=== PATIENT | female | born 1950 | race Caucasian/White ===

== ENCOUNTER 2016-12-03 11:24 | Emergency (ER) | payer OTHER, MEDICARE ==
[~2016-12-03] VITALS: Ht 157.5 cm; Wt 49.9 kg
[~2016-12-03 11:24] MED LIST: ADVAIR 250-501 EACH INH; ALBUTEROL2.5 MG/3 M INH/SOL; ALPRAZOLAM0.5 M4 PO; AMOX-CLAV 875-1 EACH PO; ASPIRIN CHILDRE81 MG PO; AUGMENTIN 500-1 EACH PO; AUGMENTIN 875-1 EACH PO; AZITHROMYCIN250 M1 PO; AZITHROMYCIN250 MG PO; BENTYL 10 MG CA10 MG PO; BIOTIN5 M2 PO; BROVANA15 MCG/21 INH; BUPROPION HCL150 M4 PO; CALMOSEPTINE OI71 GM PO; CALTRATE 600 +1 EACH PO; CEFTIN500 MG PO; CIPRO 500MG TA500 MG PO; CIPRO250 M1 PO; CIPROFLOXACIN500 MG PO; CLOPIDOGREL75 MG PO; COLACE100 M1 PO; DALIRESP500 MC1 PO; DICYCLOMINE HCL10 M1 PO; DIGOXIN250 MCG PO; DILAUDID2 M1 PO; DILAUDID4 M1 PO; DILTIAZEM 12HR120 MG PO; DILTIAZEM 24HR180 MG PO; ECOTRIN81 MG PO; ELIQUIS5 M1 PO; FERROUS SULFAT325 M3 PO; FISH OIL 1,0001 EACH PO; FOLIC ACID1 M1 PO; FUROSEMIDE40 MG PO; GUAIFENESI100 MG/5 M PO; LASIX40 M1 PO; LASIX40 MG PO; LEVOTHYROXINE100 MC1 PO; LISINOPRIL20 MG PO; LOSARTAN POTASS25 M1 PO; MEDROL DOSEPAK1 PAC PO; MIRALAX17 G1 PO; MONTELUKAST SOD10 M1 PO; MUCINEX600 M1 PO; Mucinex PO; Mycostatin Susp PO; NIACIN 500 MG PO; NIASPAN500 M1 PO; NICOTINE T7 MG/24 HR TD; NITRO-DUR1 EAC3 TOP; NITROGLYCER0.6 MG/H1 TOP; NITROGLYCERIN1 EAC2 TOP; NITROSTAT0.4 MG SL; NORVASC 10MG10 MG PO; NORVASC5 M1 PO; NYSTATIN100000 UNI PO; OMEPRAZOLE20 M2 PO; PANTOPRAZOLE SO40 M1 PO; PERCOCET 325 MG1 TA2 PO; PERCOCET 5-3251 EACH PO; PLAVIX 75MG TAB75 MG PO; POTASSIUM CHLO20 ME2 PO; POTASSIUM CHLO20 ME3 PO; PRAVACHOL40 M1 PO; PRAVASTATIN40 MG PO; PREDNISONE 10MG10 M1 PO; PREDNISONE 10MG10 MG PO; PREDNISONE 20MG20 MG PO; PREDNISONE10 M2 PO; PREDNISONE10 MG PO; PREDNISONE20 M1 PO; PREDNISONE5 M1 PO; PREDNISONE5 MG PO; PRILOSEC40 MG PO; PROAIR HFA0.09 MG/Ac INH; PULMICORT0.5 MG/21 INH/SOL; Q-TUSSIN100 MG/51 PO; Robitussin PO; SPIRIVA18 MCG INH; SUCRALFATE1 G1 PO; SYNTHROID100 MCG PO; TIKOSYN250 MCG PO; TUDORZA PR400 MCG/Ac INH; TUDORZA PRESS400 MCG INH; VICODIN 5-3001 EACH PO; VITAMIN C500 M7 PO; VITAMIN D3400 UNI1 PO; VITAMIN E400 UNI1 PO; WELLBUTRIN100 M1 PO; XANAX0.25 MG PO; XANAX0.5 MG PO; XOPENEX HFA15 GM INH; XOPENEX0.63 MG/1 INH/SOL; ZETIA10 M1 PO; ZITHROMAX Z-PA250 M1 PO; ZITHROMAX Z-PA250 MG PO; ZOLOFT100 M1 PO
[2016-12-03 12:04] LABS: ABSOLUTE BASOPHIL COUNT 0.1 /CUMM (0.0-0.2); ABSOLUTE EOSINOPHIL COUNT 0.2 /CUMM (0.0-0.7); ABSOLUTE GRANULOCYTE CT 7.9 /CUMM (1.4-6.5); BASOPHIL % 0.5 % (0.0-2.0); EOSINOPHIL % 1.6 % (0-5); GRANULOCYTE % 78.3 % (42.2-75.2); HEMATOCRIT 32.6 % (37-47); MEAN CORPUSCULAR HGB 29.6 PG (27.0-31.0); MEAN CORPUSCULAR HGB CONC 33.1 G/DL (33.0-37.0); MEAN CORPUSCULAR VOLUME 89.3 FL (81.0-99.0); MEAN PLATELET VOLUME 6.8 FL (7.4-10.4); PLATELET COUNT 519 /CUMM (130-400); RBC DISTRIBUTION WIDTH 16.2 % (11.5-14.5); RED BLOOD CELL CT 3.65 /CUMM (4.20-5.40); WHITE BLOOD CELL COUNT 10.1 /CUMM (4.8-10.8)
[2016-12-03] MEDS ORDERED: ADVAIR 250-501 EACH INH (12:18)
[2016-12-03] MEDS ORDERED: ALBUTEROL2.5 MG/3 M INH/SOL (12:19)
--- NOTE | 2016-12-03 12:20 | ED GENERAL ADULT ---
"History of Present Illness General Chief Complaint: Chest Pain Stated Complaint: CP X FEW DAYS Source: patient Exam Limitations: no limitations Vital Signs & Intake/Output Vital Signs & Intake/Output Vital Signs Date Time Temp Pulse Resp B/P Pulse O2 O2 Flow FiO2 Ox Delivery Rate 12/03 1729 98.1 74 18 140/66 98 Room Air 12/03 1637 98 Nasal 2.0L Cannula 12/03 1635 97.5 12/03 1547 97.5 79 20 120/62 98 Nasal 2.0L Cannula 12/03 1227 97 Nasal 2.0L Cannula 12/03 1139 98.0 87 18 145/77 98 Nasal 3.0L Cannula Allergies Coded Allergies: menotropins (HIVES FROM PERGONAL 11/15/15) Reconcile Medications Albuterol Sulfate 2.5 MG/3 ML (0.083 %) VIAL.NEB 1 Vial INH/DANIKA TID BREATHING PROBLEMS (Reported) Albuterol Sulfate 2.5 MG/3 ML VIAL.NEB 1 Vial INH/DANIKA Q4P PRN copd Reason to Stop at ADM: trc nebs Alprazolam 0.5 MG TABLET 1 TAB PO DAILY ANXIETY (Reported) Arformoterol Tartrate (Brovana) 15 MCG/2 ML VIAL.NEB 1 VIAL INH BID COPD Ascorbic Acid (Vitamin C) 500 MG CAPSULE.ER 1 CAP PO DAILY SUPPLEMENT ( Reported) Budesonide (Pulmicort) 0.5 MG/2 ML AMPUL.NEB 1 Vial INH/DANIKA BID COPD ( Reported) Bupropion HCl (Bupropion HCl Sr) 200 MG TABLET.ER 1 TAB PO QAM DEPRESSION ( Reported) Calcium Carbonate/Vitamin D3 (Caltrate 600 + D Tablet) 1 EACH TABLET 1 TAB PO DAILY SUPPLEMENT (Reported) Cholecalciferol (Vitamin D3) (Vitamin D3) 400 UNIT TABLET 1 TAB PO DAILY SUPPLEMENT (Reported) Dicyclomine HCl 10 MG CAPSULE 1 CAP PO 4 TIMES/DAY IBS (Reported) Diltiazem HCl (Diltiazem 24HR ER) 180 MG CAP.ER.24H 1 CAP PO DAILY HEART Docusate Sodium (Colace) 100 MG CAPSULE 2 CAP PO QPM STOOL SOFTENER (Reported ) Dofetilide (Tikosyn) 250 MCG CAPSULE 1 CAP PO BID ANTIARRHYTHMIC Ezetimibe (Zetia) 10 MG TABLET 1 TAB PO DAILY CHOLESTEROL (Reported) Ferrous Sulfate 325 MG (65 MG IRON) TABLET 1 TAB PO DAILY SUPPLEMENT ( Reported) Fluticasone/Salmeterol (Advair 250-50 Diskus) 250 MCG-50 MCG/DOSE BLST.W.DEV 1 PUF INH BID BREATHING PROBLEMS (Reported) Folic Acid 1 MG TABLET 1 TAB PO DAILY SUPPLEMENT (Reported) Furosemide (Lasix) 40 MG TABLET 1 TAB PO BID WATER PILL (Reported) Guaifenesin (Mucinex) 600 MG TAB.ER.12H 1 TAB PO DAILY EXPECTORANT (Reported) Levalbuterol HCl (Xopenex) 0.63 MG/3 ML VIAL.NEB 1 Vial INH/DANIKA Q8 COPD ( Reported) Levothyroxine Sodium 100 MCG TABLET 1 TAB PO DAILY AC THYROID (Reported) Losartan Potassium (Cozaar) 25 MG TABLET 1 TAB PO QPM HEART (Reported) Montelukast Sodium 10 MG TABLET 1 TAB PO DAILY COPD (Reported) Niacin (Niaspan) 500 MG TAB.ER.24H 1 TAB PO QPM SUPPLEMENT (Reported) Nitroglycerin (Nitro-Dur) 0.4 MG/HOUR PATCH.TD24 1 PAT TOP DAILY HEART ( Reported) [place]-3 Fatty Acids/Fish Oil (Fish Oil 1,000 MG Capsule) 340 MG-1,000 MG CAPSULE 2 CAP PO DAILY SUPPLEMENT (Reported) Pantoprazole Sodium 40 MG TABLET.DR 1 TAB PO DAILY GI (Reported) Potassium Chloride 20 MEQ TAB.ER.PRT 1 TAB PO DAILY SUPPLEMENT (Reported) Pravastatin Sodium (Pravachol) 40 MG TABLET 1 TAB PO QPM CHOLESTEROL ( Reported) Roflumilast (Daliresp) 500 MCG TABLET 1 TAB PO DAILY COPD (Reported) Sertraline HCl (Zoloft) 100 MG TABLET 2 TAB PO DAILY DEPRESSION (Reported) Sucralfate 1 GM TABLET 1 TAB PO 4 TIMES/DAY PUD (Reported) Tiotropium [place] (Spiriva) 18 MCG CAP.W.DEV 1 CAP INH DAILY copd Reason to Stop at ADM:[facility] NEBS ORDERS Vitamin E (Dl,Tocopheryl Acet) (Vitamin E) 400 UNIT CAPSULE 1 TAB PO DAILY SUPPLEMENT (Reported) Triage Note: 66 Y/O FEMALE C/O INTERMITTENT CHEST PAIN SINCE LAST WEEK; BECOMMING MORE CONSTANT AND MORE FREQUENT SINCE THIS WEEKEND. TOOK 2 TABS NITRO THIS MORNING WITH SIGNIFICANT IMPROVEMENT OF PAIN PER PT, NOW RATED 3/10. DENIES FEELING SOB THOUGH REPORTS INCREASE IN COUGH. BASELINE 2L 02, INCREASED TO 3L PER PT. EKG IN PROGRESS Triage Nurses Notes Reviewed? yes Onset: Abrupt Duration: day(s): Timing: recent history HPI: 12/03/16 3 pm 66-year-old female presents to the emergency department complaining of intermittent left sided chest wall pain. The patient has a history of COPD and also angina. She sees Dr. Naranjo who prescribed nitroglycerin. She's been intermittently getting left sided chest wall pain that is only occurring on the weekends. The last episode occurred on Saturday. But she's had intermittent chest pain throughout the weekend. Now the emergency department she has a minor pain to the left subcostal area. The onset of the symptoms were abrupt, the duration has been approximately last 2 weeks, the severity is significant as her symptoms required to come to the emergency department for care. She does admit to cough. No significant difficulty breathing. She has paroxysmal A. fib Past History Travel History Traveled to [place] past 21 day No Medical History Any Pertinent Medical History? 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 Other Medical Hx: Irritable bowel syndrome viral meningitis [id number] hypothyroidism right cataract extraction with IOL implant depression arthritis HTN (HYPERTENSION) (401.9 | I10) CAD s/p IA COPD tonsillectomy GERD discoid lupus Pneumonia miscarriage in 1990 appendectomy ulcerative colitis eczema surgical repair of hiatal hernia skin cancer Atrial Fibrillation History of MRSA: No History of VRE: No History of CDIFF: No Pneumonia Vaccine: 04/26/16 Influenza Vaccine: 06/10/16 Tetanus Vaccine: 02/07/16 Surgical History Surgical History: appendectomy, surgical repair of hiatal hernia tonsillectomy Psychosocial History Who do you live with Patient/Self Services at Home Oxygen What is your primary language Occitan Tobacco Use: Quit >30 days ago Family History Family History, If Any: MOTHER FH: COPD (chronic obstructive pulmonary disease) FH: heart disease FATHER Alzheimer's disease Hx Contributory? No Review of Systems Review of Systems Constitutional: Denies: fever. EENTM: Denies: visual changes. Respiratory: Reports: cough. Denies: short of breath. Cardiovascular: Reports: see HPI. GI: Denies: abdominal pain. Genitourinary: Reports: no symptoms. Musculoskeletal: Reports: no symptoms. Skin: Reports: no symptoms. Neurological/Psychological: Reports: no symptoms. Hematologic/Endocrine: Reports: no symptoms. Physical Exam Physical Exam General Appearance: alert, awake, anxious, mild distress Head: atraumatic, normal appearance Eyes: Bilateral: normal appearance, PERRL, EOMI. Ears, Nose, Throat: normal pharynx, normal ENT inspection Neck: normal inspection, supple, full range of motion Respiratory: no respiratory distress, left-sided chest wall tenderness Cardiovascular: regular rate/rhythm Peripheral Pulses: 4+ radial (R), 4+ radial (L) Gastrointestinal: soft, non-tender Back: normal range of motion Extremities: no edema Neurologic/Psych: no motor/sensory deficits, awake, alert, oriented x 3 Skin: intact, normal color, warm/dry Core Measures ACS in differential dx? No CVA/TIA Diagnosis: No Severe Sepsis Present: No Septic Shock Present: No Progress Differential Diagnoses I considered the following diagnoses in my evaluation of the patient: [Pneumonia , CHF, atelectasis, COPD, acute coronary syndrome, stable angina,] Plan of Care: Orders Procedure Date/time Status TROPONIN LEVEL 12/03 1524 Complete EKG 12/03 1524 Active TROPONIN LEVEL 12/03 1135 Complete MAGNESIUM 12/03 1135 Complete COMPREHENSIVE METABOLIC PANEL 12/03 1135 Complete CBC WITHOUT DIFFERENTIAL 12/03 1135 Complete EKG 12/03 1129 Active Laboratory Tests 12/03/16 1617: Troponin I 0.01 12/03/16 1230: Anion Gap 9, Estimated GFR > 60, BUN/Creatinine Ratio 23.3, Glucose 107 H, Calcium 10.4 H, Magnesium 1.6, Total Bilirubin 0.4, AST 82 H, ALT 83 H, Alkaline Phosphatase 93, Troponin I 0.01, Total Protein 6.4, Albumin 4.0, Globulin 2.4, Albumin/Globulin Ratio 1.7 12/03/16 1147: CBC w Diff NO MAN DIFF REQ, RBC 3.65 L, MCV 89.3, MCH 29.6, RDW 16.2 H, MPV 6.8 L, Gran % 78.3 H, Lymphocytes % 9.5 L, Monocytes % 10.1 H, Eosinophils % 1.6, Basophils % 0.5, Absolute Granulocytes 7.9 H, Absolute Lymphocytes 1.0 L, Absolute Monocytes 1.0 H, Absolute Eosinophils 0.2, Absolute Basophils 0.1, PUBS MCHC 33.1 Pre-Hospital EKG: NSR, nonspecific ST T wave chg Initial ED EKG: NSR, nonspecific ST T wave chg Prior EKG: unchanged Departure Departure Disposition: HOME OR SELF CARE Condition: Stable Clinical Impression Primary Impression: Chest pain Secondary Impressions: Atelectasis Referrals: DEDE MARION MD (PCP/Family) Departure Forms: Customer Survey General Discharge Information Comments Chest x-ray result reviewed below PATIENT: STEPH LEOS PRESENT AGE: 66 PATIENT ACCOUNT NO: [id number] : 50 LOCATION: [facility] ORDERING PHYSICIAN: MATTEO JONES DO SERVICE DATE: 12/03/16 EXAM TYPE: RAD - XRY-PORTABLE CHEST XRAY EXAMINATION: XR PORTABLE CHEST CLINICAL INFORMATION: Shortness of breath. Cough. COMPARISON: 08/11/2016 TECHNIQUE: AP portable upright view of the chest FINDINGS: Linear atelectasis is present the left lung base. Lungs are hyperexpanded, suggestive of COPD. No focal consolidation, pneumothorax, or pleural effusion. Cardiac and mediastinal contours are normal. Calcific atherosclerosis is present in the thoracic aorta. IMPRESSION: Mild left basilar atelectasis. No acute findings. DICTATED BY: YASMINE DOS SANTOS MD DATE/TIME DICTATED:12/03/161349 NEWS REEL CAMERAMAN:PAPO DATE/TIME TRANSCRIBED:12/03/161349 CONFIDENTIAL, DO NOT COPY WITHOUT APPROPRIATE AUTHORIZATION. <Electronically signed in Other Vendor System> SIGNED BY: YASMINE DOS SANTOS MD 12/03/16 1359 12/03/16 5:14 PM The patient has no active chest pain in the Emergency Department. Pain is worse when she leans forward. It is in the left subcostal area. Chest x-ray shows left sided atelectasis. EKG is unchanged 2. Troponin is less than 0.012. She will follow-up with Dr. Naranjo this week. Critical Care Note Critical Care Note Critical Care Time: non-applicable"
[2016-12-03] MEDS ORDERED: COZAAR25 M1 PO (12:28)
--- NOTE | 2016-12-03 13:59 | RADIOLOGY REPORT ---
EXAMINATION: XR PORTABLE CHEST CLINICAL INFORMATION: Shortness of breath. Cough. COMPARISON: 08/11/2016 TECHNIQUE: AP portable upright view of the chest FINDINGS: Linear atelectasis is present the left lung base. Lungs are hyperexpanded, suggestive of COPD. No focal consolidation, pneumothorax, or pleural effusion. Cardiac and mediastinal contours are normal. Calcific atherosclerosis is present in the thoracic aorta. IMPRESSION: Mild left basilar atelectasis. No acute findings.
[2016-12-03 17:29] VITALS: BP 140/66
== END 2016-12-03 17:30 ==
LOC: ERH 11:24
PROVIDERS: Emergency Medicine
DX: R07.9 Chest pain, unspecified (principal); J98.11 Atelectasis; Z87.891 Personal history of nicotine dependence
CPT/HCPCS: 1263; 93005; 93010

== ENCOUNTER 2017-01-25 17:21 | Inpatient (IN) | payer OTHER, MEDICARE ==
[~2017-01-25] VITALS: Ht 157.5 cm; Wt 60.5 kg
[~2017-01-25 17:21] MED LIST changes: +COZAAR25 M1 PO
--- NOTE | 2017-01-25 17:26 | NUR ---
PT TO ED C/O STIFF NECK X 4 DAYS. ALSO C/O HEADACHE, B/L ARM NUMBNESS AND B/L SHOULDER PAIN.
--- NOTE | 2017-01-25 17:54 | ED HEADACHE COMPLAINT ---
"History of Present Illness General Chief Complaint: General Adult Stated Complaint: SIB DR. TERRY FOR EVAL, STIFF NECK Source: patient Exam Limitations: no limitations Vital Signs & Intake/Output Vital Signs & Intake/Output Vital Signs Date Time Temp Pulse Resp B/P B/P Pulse O2 O2 Flow FiO2 Mean Ox Delivery Rate 01/25 2010 100.4 01/25 1941 100.4 95 18 123/57 97 Nasal 2.0L Cannula 01/25 1753 Room Air 01/25 1723 100.6 109 20 172/82 92 Nasal 1.0L Cannula ED Intake and Output 01/26 0000 01/25 1200 Intake Total 1360 Output Total Balance 1360 Intake, IV 1000 Intake, Oral 360 Patient 106 lb Weight Weight Reported by Patient Measurement Method Allergies Coded Allergies: menotropins (HIVES FROM PERGONAL 11/15/15) Triage Note: PT TO ED C/O STIFF NECK X 4 DAYS. ALSO C/O HEADACHE, B/L ARM NUMBNESS AND B/L SHOULDER PAIN. Triage Nurses Notes Reviewed? 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 Patient also states that yesterday she had a bowel prep for her colonoscopy performed today which he colonoscopy went well patient had no complications however during the ambulance ride home patient advised the construction producer to drop her off at [facility] for her complaints as stated above. Patient denies any chest pain arm pain jaw pain nausea vomiting leg swelling Patient does complain of a chronic cough and chronic shortness of breath with no new changes. Denies any dysuria hematuria back pain. Patient does complain of bilateral upper extremity paresthesia which has been present for some time. Denies any mechanism of injury. Denies any photophobia. Patient has not eaten or drank anything in the last 24 hours due to the bowel prep and colonoscopy. The colonoscopy was a scheduled procedure Patient was advised to present to emergency by Dr. Terry for concerns of a history of viral meningitis however patient states that symptoms present today are not similar to previous episode many years ago of viral meningitis when she was in [place]. (TIFFANIE EVERETT,JENNIFER) Reconcile Medications Acetaminophen (Arthritis Pain Reliever) 650 MG TABLET.ER 2 TAB PO PRN PAIN ( Reported) Albuterol Sulfate 2.5 MG/3 ML (0.083 %) VIAL.NEB 1 Vial INH/DANIKA 4XDAILY PRN RESPIRATORY (Reported) Alprazolam 0.5 MG TABLET 1 TAB PO DAILY ANXIETY (Reported) Arformoterol Tartrate (Brovana) 15 MCG/2 ML VIAL.NEB 1 VIAL INH DAILY RESPIRATORY (Reported) Ascorbic Acid (Vitamin C) 500 MG CAPSULE.ER 1 CAP PO DAILY SUPPLEMENT ( Reported) Budesonide (Pulmicort) 0.5 MG/2 ML AMPUL.NEB 1 Vial INH/DANIKA BID COPD ( Reported) Bupropion HCl (Bupropion HCl Sr) 200 MG TABLET.ER 1 TAB PO QAM DEPRESSION ( Reported) Calcium Carbonate/Vitamin D3 (Caltrate 600 + D Tablet) 1 EACH TABLET 1 TAB PO DAILY SUPPLEMENT (Reported) Cholecalciferol (Vitamin D3) (Vitamin D3) 400 UNIT TABLET 1 TAB PO DAILY SUPPLEMENT (Reported) Diltiazem HCl (Diltiazem ER) 180 MG CAPSULE.ER 1 TAB PO DAILY heart rate ( Reported) Docusate Sodium (Colace) 100 MG CAPSULE 2 CAP PO QPM STOOL SOFTENER (Reported ) Dofetilide (Tikosyn) 250 MCG CAPSULE 1 CAP PO BID ANTIARRHYTHMIC Ezetimibe (Zetia) 10 MG TABLET 1 TAB PO DAILY CHOLESTEROL (Reported) Ferrous Sulfate 325 MG (65 MG IRON) TABLET 1 TAB PO DAILY SUPPLEMENT ( Reported) Fluticasone/Salmeterol (Advair 250-50 Diskus) 250 MCG-50 MCG/DOSE BLST.W.DEV 1 PUF INH BID BREATHING PROBLEMS (Reported) Folic Acid 1 MG TABLET 1 TAB PO DAILY SUPPLEMENT (Reported) Furosemide (Lasix) 40 MG TABLET 1 TAB PO BID WATER PILL (Reported) Guaifenesin (Mucinex) 600 MG TAB.ER.12H 1 TAB PO DAILY EXPECTORANT (Reported) Levothyroxine Sodium 100 MCG TABLET 1 TAB PO DAILY AC THYROID (Reported) Losartan Potassium 50 MG TABLET 1 TAB PO DAILY BP (Reported) Montelukast Sodium 10 MG TABLET 1 TAB PO DAILY COPD (Reported) Nitroglycerin (Nitro-Dur) 0.6 MG/HOUR PATCH.TD24 1 PATCH TOP DAILY HEART ( Reported) [place]-3 Fatty Acids/Fish Oil (Fish Oil 1,000 MG Capsule) 340 MG-1,000 MG CAPSULE 2 CAP PO DAILY SUPPLEMENT (Reported) Omeprazole 40 MG CAPSULE.DR 1 CAP PO DAILY GI (Reported) Potassium Chloride 20 MEQ TAB.ER.PRT 1 TAB PO DAILY SUPPLEMENT (Reported) Pravastatin Sodium (Pravachol) 40 MG TABLET 1 TAB PO QPM CHOLESTEROL ( Reported) Roflumilast (Daliresp) 500 MCG TABLET 1 TAB PO DAILY COPD (Reported) Sertraline HCl (Zoloft) 100 MG TABLET 2 TAB PO DAILY DEPRESSION (Reported) Sucralfate 1 GM TABLET 1 TAB PO 4 TIMES/DAY PUD (Reported) Tiotropium [place] (Spiriva) 18 MCG CAP.W.DEV 1 CAP INH DAILY copd Reason to Stop at ADM:TRC NEBS ORDERS Vitamin E (Dl,Tocopheryl Acet) (Vitamin E) 400 UNIT CAPSULE 1 TAB PO DAILY SUPPLEMENT (Reported) (LUCAS ETIENNE,MIKE Brown) Past History Travel History Traveled to [place] past 21 day No Medical History Any Pertinent Medical History? 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 Other Medical Hx: Irritable bowel syndrome viral meningitis [id number] hypothyroidism right cataract extraction with IOL implant depression arthritis HTN (HYPERTENSION) (401.9 | I10) CAD s/p VA COPD tonsillectomy GERD discoid lupus Pneumonia miscarriage in 1990 appendectomy ulcerative colitis eczema surgical repair of hiatal hernia skin cancer Atrial Fibrillation History of MRSA: No History of VRE: No History of CDIFF: No Tetanus Vaccine: 02/07/16 Surgical History Surgical History: appendectomy, surgical repair of hiatal hernia tonsillectomy Psychosocial History Who do you live with Patient/Self Services at Home Oxygen What is your primary language Bolivian Tobacco Use: Quit >30 days ago ETOH Use: denies use Illicit Drug Use: denies illicit drug use Family History Family History, If Any: MOTHER FH: COPD (chronic obstructive pulmonary disease) FH: heart disease FATHER Alzheimer's disease Hx Contributory? No (JENNIFER BORGES) Review of Systems Review of Systems Constitutional: Reports: see HPI, chills, fever. Eyes: Reports: no symptoms. Ears, Nose, Throat, Mouth: Reports: no symptoms. Respiratory: Reports: see HPI. Cardiovascular: Reports: see HPI. Denies: chest pain, edema. Gastrointestinal/Abdominal: Reports: no symptoms. Genitourinary: Reports: no symptoms. Musculoskeletal: Reports: see HPI, muscle pain, muscle stiffness, neck pain. Skin: Reports: no symptoms. Neurological/Psychological: Reports: see HPI, headache, numbness. Hematologic/Endocrine: Reports: no symptoms. Endocrine: Reports: no symptoms. Immunologic/Allergic: Reports: no symptoms. All Other Systems: Reviewed and Negative (JENNIFER BORGES) Physical Exam Physical Exam General Appearance: no apparent distress, alert, comfortable Cranial Nerves: normal hearing, normal speech, PERRL Comments: Well-developed well-nourished person in no acute distress HEENT: Normal EENT exam, extraocular motion intact, no nystagmus. Pupils equally round and reactive to light and accommodation. Nose is atraumatic. External auditory canal and Tympanic membranes clear. Pharynx normal. No swelling or edema. Neck: Supple, no lymphadenopathy, normal range of motion without pain or tenderness Full active range of motion noted with cervical spine movements, bilateral para cervical muscular tenderness and upper trapezius point tenderness Back: Nontender, no CVA tenderness Cardiovascular: Regular rate and rhythms no murmurs rubs or gallops, normal JVP Respiratory: Chest nontender. No respiratory distress. Mild posterior wheezing noted Abdomen: Soft, nontender nondistended, no appreciable organomegaly. Normal bowel sounds. No ascites Extremity: No edema, no calf tenderness to palpation, normal and equal pulses. Neuro: Alert oriented x3, motor sensory normal, cranial nerves II through XII grossly intact. Bilateral upper extremity myotomes and dermatomes intact Negative Brudzinski negative Kernig sign Skin: No appreciable rash on exposed skin, skin is warm and dry. Psych: Mood and affect is normal, memory and judgment is normal. Core Measures Severe Sepsis Present: No Septic Shock Present: No (TIFFANIE EVERETT,JENNIFER) Progress Differential Diagnosis: carotid dissection, cav sinus thromb, cluster RUSSO, encephalitis, IC mass/tumor, intracranial Hem., meningitis, migraine RUSSO, musculoskeletal pain, post LP headache, sinusitis, SSS thrombosis, subarach. Hem., tension RUSSO, temporal arteritis, TMJ syndrome, viral cephalgia, PNA, SEPSIS , COPD EXACERBATION Plan of Care: Orders Procedure Date/time Status Heart Healthy Diet 01/26 B Active TROPONIN LEVEL 01/26 600 Active CBC WITHOUT DIFFERENTIAL 01/26 600 Active BASIC ELECTROLYTES PLUS BUN&CR 01/26 600 Active EKG 01/26 600 Active TROPONIN LEVEL 01/26 0000 Active EKG 01/26 0000 Active Pathway - chart 01/25 2217 Active House Staff 01/25 2217 Active Code Status 01/25 2217 Active LOWER RESPIRATORY CULTURE 01/25 2137 Active TRC EVALUATION (GEN) 01/26 2116 Active STREP PNEUMO URINARY ANTIGEN 01/26 2116 Active LEGIONELLA URINARY ANTIGEN 01/26 2116 Active RAPID VIRAL INFLUENZA A 01/25 2114 Complete Saline Lock 01/25 2009 Active Misc Message 01/25 2009 Active ED Holding Orders 01/25 2009 Active Admit to inpatient 01/25 2009 Active Vital Signs 01/25 2009 Active Code Status 01/25 2009 Complete Patient Data 01/25 2003 Active Intake & Output 01/25 194 Active Add-on Test (ER Only) 01/25 193 Active EKG 01/25 193 Active LACTIC ACID 01/25 1842 Complete CULTURE,URINE 01/25 182 Active BLOOD CULTURE 01/25 1829 Active URINALYSIS 01/25 1829 Active TROPONIN LEVEL 01/25 1829 Complete COMPREHENSIVE METABOLIC PANEL 01/25 182 Complete CBC WITHOUT DIFFERENTIAL 01/25 182 Complete VTE Mechanical Prophylaxis 01/25 UNK Active Current Medications Sig/Lana Start time Last Medication Dose Stop Time Status Admin Ceftriaxone Sodium 1,000 MG 0 01/26 2200 AC (Rocephin) Doxycycline Hyclate 100 MG Q12 01/26 2200 AC (Vibramycin) Sodium Chloride 100 ML (Normal Saline 0.9%) Alprazolam 0.5 MG DAILY 01/26 1000 AC (Xanax) 02/02 0959 Ascorbic Acid 500 MG DAILY 01/26 1000 AC (Vitamin C) Budesonide/ 2 PUF BID 01/26 1000 AC Formoterol Fumarate (Symbicort) Bupropion HCl 200 MG DAILY 01/26 1000 AC (Wellbutrin SR) Diltiazem HCl 180 MG DAILY 01/26 1000 AC (Cardizem CD) Dofetilide 250 MCG BID 01/26 1000 AC (Tikosyn 125 MCG) Enoxaparin Sodium 40 MG DAILY 01/26 1000 AC (Lovenox) Ezetimibe 10 MG DAILY 01/26 1000 AC (Zetia) Ferrous Sulfate 325 MG DAILY 01/26 1000 AC (Feosol) Folic Acid 1 MG DAILY 01/26 1000 AC (Folic Acid) Guaifenesin 600 MG DAILY 01/26 1000 AC (Mucinex) Montelukast Sodium 10 MG DAILY 01/26 1000 AC (Singulair) Nitroglycerin 0.6 MG DAILY 01/26 1000 AC (Transderm Nitro 15MG (Nitro-Dur) 0.6MG/Hr) Potassium Chloride 20 MEQ DAILY 01/26 1000 AC (K-Dur) Pravastatin Sodium 40 MG DAILY 01/26 1000 AC (Pravachol) Roflumilast 500 MCG DAILY 01/26 1000 AC (DALIRESP) Sertraline HCl 200 MG DAILY 01/26 1000 AC (Zoloft) Tiotropium [place] 1 PUF DAILY 01/26 1000 AC (Spiriva) Levothyroxine Sodium 0.1 MG DAILY AC 01/26 0700 AC (Synthroid) Omeprazole 40 MG DAILY AC 01/26 0700 AC (Prilosec) Methylprednisolone 40 MG Q6 01/26 06 AC (Solumedrol) Tramadol HCl 50 MG Q8P PRN 01/25 2230 AC (Ultram) Acetaminophen 650 MG Q6P PRN 01/25 2215 AC (Tylenol) Budesonide/ 2 PUF BID 01/25 2200 CAN Formoterol Fumarate (Symbicort) Sucralfate 1,000 MG 4 TIMES/DAY 01/25 2200 AC (Carafate) Sodium Chloride 1,000 ML Q13H 01/25 2145 AC (Normal Saline 0.9%) 01/26 1044 Laboratory Tests 01/25/17 1842: Anion Gap 11, Estimated GFR > 60, BUN/Creatinine Ratio 15.7, Glucose 93, Lactic Acid 0.8, Calcium 9.1, Total Bilirubin 0.4, AST 29, ALT 46, Alkaline Phosphatase 74, Troponin I 0.05, Total Protein 6.0 L, Albumin 3.8, Globulin 2.2, Albumin/ Globulin Ratio 1.7, CBC w Diff MAN DIFF ORDERED, RBC 3.40 L, MCV 91.0, MCH 30.0 , RDW 14.7 H, MPV 6.7 L, Gran % 89.2 H, Lymphocytes % 2.2 L, Monocytes % 8.5 , Eosinophils % 0.1, Basophils % 0 L, Absolute Granulocytes 26.1 H, Segmented Neutrophils 79 H, Band Neutrophils 6 H, Absolute Lymphocytes 0.6 L, Lymphocytes 5 L, Monocytes 9, Absolute Monocytes 2.5 H, Absolute Eosinophils 0 , Basophils 1, Absolute Basophils 0, Platelet Estimate INCREASED, Polychromasia 1+, Hypochromic-Microcytic 2+, Anisocytosis 1+, Schistocytes 1+, PUBS MCHC 33.0 Microbiology 01/25 225 NASOPHARYN: Influenza Virus A & B Rapid Smear - COMP 01/25 2137 LOWER RESP: Respiratory Culture - ORD 01/25 2137 LOWER RESP: Gram Stain - ORD 01/26 2116 URINE ROUT: Legionella Antigen - ORD 01/26 2116 URINE ROUT: Streptococcus pneumoniae Antigen (M - ORD 01/25 184 BLOOD: Blood Culture - RECD 01/25 183 BLOOD: Blood Culture - RECD 01/25 182 URINE ROUT: Urine Culture - ORD Patient does note to have fever and which Tylenol and IV fluids were administered. Patient has minimal suspicion of meningitis which she has full active range of motion negative meningeal signs on exam patient is alert and oriented Patient however on chest x-ray and blood work does note to have concerns of pneumonia Patient was administered IV antibiotics and IV Solu-Medrol for comorbidities. Due to comorbidities and concerning significant pneumonia patient will be admitted Patient also will be admitted for new EKG findings FROM 2 MONTHS AGO. Discussed patient with Dr. Kuo was aware (JENNIFER BORGES) Diagnostic Imaging: Viewed by Me: Radiology Read. Radiology Impression: SEE COMMENTS Initial ED EKG: SINUS RHYTHM 82 BPM v3 t-WAVE INVERSIONS NOTED THAT ARE NEW Prior EKG: changed Comments: PATIENT: STEPH LEOS PRESENT AGE: 67 PATIENT ACCOUNT NO: [id number] : 50 LOCATION: [facility] ORDERING PHYSICIAN: JENNIFER EVERETT SERVICE DATE: 01/25/17 EXAM TYPE: RAD - XRY-CHEST XRAY, PA AND LATERAL EXAMINATION: XR CHEST CLINICAL INFORMATION: Fever, COPD. COMPARISON: Chest x-ray 12/03/2016. TECHNIQUE: 2 views of the chest were obtained. FINDINGS: The lungs are hyperinflated. In comparison to the prior examination, there has been interval development of patchy airspace opacities within the left lung apex. There is also a subtle opacity within the right upper lobe. No pleural effusions or pneumothoraces are identified. Cardiomediastinal contours are within normal limits. Soft tissues are unremarkable. No acute osseous abnormality is identified. IMPRESSION: Interval development of patchy airspace opacities within the left lung apex. A subtle opacity is also visualized within the right upper lobe. This could reflect infection. Recommend follow-up PA and lateral chest x-ray following treatment to ensure resolution and to exclude underlying malignancy given the patient's clinical risk factors. Radiographic findings suggestive of underlying COPD. 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 COKING:PAPO DATE/TIME TRANSCRIBED:01/25/171922 (JENNIFER BORGES) Departure Departure Disposition: STILL A PATIENT Condition: Stable Clinical Impression Primary Impression: Pneumonia Secondary Impressions: COPD (chronic obstructive pulmonary disease), EKG, abnormal Referrals: DEDE MARION MD (PCP/Family) Departure Forms: Customer Survey General Discharge Information Admission Note Spoke With: ROXANNE GARLAND MD Documentation of Exam: Documentation of any treatments & extenuating circumstances including Concerns Regarding Discharge (functional status, medication knowledge or non-compliance, living conditions, etc.) that warrant an admission rather than observation: [ Discussed patient with who agrees with ] telemetry admission for concerns of pneumonia COPD and new EKG T wave inversions noted on admission EKG. Patient requires telemetry monitoring, IV antibiotics, pulmonary consultation, repeat labs, repeat troponin, blood cultures pending. 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 I have also reviewed all the pertinent lab results and diagnostic results. I agree with the findings and the plan of care as documented in the PA's/ATMOSPHERIC DRIER TENDER's documentation. [x] I have reviewed the ED Record and agree with the PA's/ATMOSPHERIC DRIER TENDER's documentation. [] Additions or exceptions (if any) to the PAs/ATMOSPHERIC DRIER TENDER's note and plan are summarized below: [] (LUCAS ETIENNE,MIKE Brown)"
[2017-01-25] MEDS ORDERED: ALBUTEROL2.5 MG/3 M INH/SOL (18:08)
[2017-01-25] MEDS ORDERED: BROVANA15 MCG/21 INH (18:09)
[2017-01-25] MEDS ORDERED: LOSARTAN POTASS50 M1 PO (18:10)
[2017-01-25] MEDS ORDERED: NITRO-DUR1 EAC4 TOP (18:12)
[2017-01-25] MEDS ORDERED: OMEPRAZOLE40 M1 PO (18:19)
[2017-01-25] MEDS ORDERED: ARTHRITIS PAIN650 M4 PO (18:20)
--- NOTE | 2017-01-25 18:52 | NUR ---
LABS DRAWN AND SENT, TWO SETS OF BLOOD CULTURES DRAWN AND SENT.
[2017-01-25 19:08] LABS: ABSOLUTE BASOPHIL COUNT 0 /CUMM (0.0-0.2); ABSOLUTE EOSINOPHIL COUNT 0 /CUMM (0.0-0.7); ABSOLUTE GRANULOCYTE CT 26.1 /CUMM (1.4-6.5); ABSOLUTE LYMPH COUNT 0.6 /CUMM (1.2-3.4); ABSOLUTE MONOCYTE COUNT 2.5 /CUMM (0.10-0.60); BASOPHIL % 0 % (0.0-2.0); EOSINOPHIL % 0.1 % (0-5); GRANULOCYTE % 89.2 % (42.2-75.2); HEMATOCRIT 30.9 % (37-47); MEAN PLATELET VOLUME 6.7 FL (7.4-10.4); PLATELET COUNT 568 /CUMM (130-400); RBC DISTRIBUTION WIDTH 14.7 % (11.5-14.5); WHITE BLOOD CELL COUNT 29.2 /CUMM (4.8-10.8)
--- NOTE | 2017-01-25 19:28 | RADIOLOGY REPORT ---
EXAMINATION: XR CHEST CLINICAL INFORMATION: Fever, COPD. COMPARISON: Chest x-ray 12/03/2016. TECHNIQUE: 2 views of the chest were obtained. FINDINGS: The lungs are hyperinflated. In comparison to the prior examination, there has been interval development of patchy airspace opacities within the left lung apex. There is also a subtle opacity within the right upper lobe. No pleural effusions or pneumothoraces are identified. Cardiomediastinal contours are within normal limits. Soft tissues are unremarkable. No acute osseous abnormality is identified. IMPRESSION: Interval development of patchy airspace opacities within the left lung apex. A subtle opacity is also visualized within the right upper lobe. This could reflect infection. Recommend follow-up PA and lateral chest x-ray following treatment to ensure resolution and to exclude underlying malignancy given the patient's clinical risk factors. Radiographic findings suggestive of underlying COPD.
--- NOTE | 2017-01-25 20:11 | NUR ---
PT MEDICATED WITH IV SOLUMEDROL AND IV CEFTRIAXONE PER ORDERS KARLOS MORENO BOX LUNCH PROVIDED PER ORDERS KARLOS MORENO
--- NOTE | 2017-01-25 21:16 | History & Physical ---
IRINA ETIENNE,[facility] 01/25/172114: General Information and HPI MD Statement: I have seen and personally examined STEPH ESCOBAR and documented this H&P. The patient is a 67 year old F who presented with a patient stated chief complaint of [nausea, fever, chills for 1 day]. Source of Information: patient, old records Exam Limitations: no limitations History of Present Illness: Ms. Escobar is 67 year old female with past medical history significant for COPD on 2 L home oxygen, coronary artery disease, atrial fibrillation not on anticoagulation because of history of bleeding, viral meningitis, osteoarthritis who presented to ED with chief complaint of nausea, fever and chills for 1 day. Patient reported that she had a scheduled colonoscopy this morning at [facility] for double balloon colonoscopy as she has been suffering from chronic anemia looking for source of GI bleeding. On her way back to home patient was "feeling very sick", complaining of nausea, fever and chills and decided to come to [facility] for evaluation. Patient reported that for the couple last days (3 days), she has been suffering from headache bitemporal throbbing pain 5/10 constant not associated with visual changes or photophobia. Also she reported nasal congestion with discharge yellow mucus from the right nostril, sore throat, productive cough of yellow sputum, denied ear pain, fever or chills prior to today. She denied any sick contact, recent travels. Patient received the flu vaccine and pneumonia vaccine last fall. Patient has osteoarthritis bilateral knees severe on the right side, bilateral shoulders, fingers not following with project architect, complains of left side neck soreness that has been on going for the last couple of days. Patient denied weakness, dizziness, blurry vision. She reported numbness on bilateral shoulders especially by the end of the day. Patient lives with her daughters, independent in ADL and IADL, has home services. Patient is an ex-smoker quit 5 years ago after 45 years of smoking, for the last 20 years she has been smoking 10 cigarettes per day. No history of alcohol consumption or ilict drug. Patient is following with Dr. Naranjo, Doppler, stress neck and Dr. Woods for chronic anemia. Allergies/Medications Allergies: Coded Allergies: menotropins (HIVES FROM PERGONAL 11/15/15) Past History Travel History Traveled to [place] past 21 day No Medical History Neurological: meningitis (viral in 2008) EENT: cataracts (on right with IOL), hearing loss Cardiovascular: AFIB, CAD (s/p LA), hypertension, hyperlipidemia, LA BLOCKED ARTERY atrial fibrillation PHARMACEUTICAL CONVERSION WITH TIKOSYN Respiratory: COPD, pneumonia, 2L N/C O2 PRN Gastrointestinal: GERD, irritable bowel syndrome, ULCERATIVE COLITIS Hepatic: NONE Renal: NONE Musculoskeletal: fibromyalgia, osteoarthritis Psychiatric: anxiety, depression, PTSD fibromyalgia Endocrine: hypothyroidism Blood Disorders: anemia Cancer(s): SKIN CA (skin cancer) SEWER HAND/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: NONE Other Medical Hx: Irritable bowel syndrome viral meningitis [id number] hypothyroidism right cataract extraction with IOL implant depression arthritis HTN (HYPERTENSION) (401.9 | I10) CAD s/p LA COPD tonsillectomy GERD discoid lupus Pneumonia miscarriage in 1990 appendectomy ulcerative colitis eczema surgical repair of hiatal hernia skin cancer Atrial Fibrillation History of MRSA: No History of VRE: No History of CDIFF: No Tetanus Vaccine: 02/07/16 Surgical History Surgical History: appendectomy, surgical repair of hiatal hernia tonsillectomy Past Family/Social History Family History Relations & Conditions if any MOTHER FH: COPD (chronic obstructive pulmonary disease) FH: heart disease FATHER Alzheimer's disease Psychosocial History Who Do You Live With? child Services at Home: Oxygen Primary Language: Nepali ETOH Use: denies use Illicit Drug Use: denies illicit drug use Functional Ability ADLs Independent: dressing, eating, toileting, bathing. Ambulation: independent IADLs Independent: shopping, housework, finances, food prep, telephone, transportation , medication admin. Review of Systems Review of Systems Constitutional: Reports: see HPI. Cardiovascular: Denies: chest pain, orthopena, palpitations. Respiratory: Reports: cough, short of breath. GI: Reports: nausea. Denies: abdominal pain, diarrhea, vomiting. Genitourinary: Denies: dysuria, hematuria. Skin: Denies: change in skin color, change in hair/nails. Neurological/Psychological: Reports: headache, numbness. Denies: confusion, dementia, tremors. Exam & Diagnostic Data Last 24 Hrs of Vital Signs/I&O Vital Signs Date Time Temp Pulse Resp B/P B/P Pulse O2 O2 Flow FiO2 Mean Ox Delivery Rate 01/25 2010 100.4 01/25 1941 100.4 95 18 123/57 97 Nasal 2.0L Cannula 01/25 1753 Room Air 01/25 1723 100.6 109 20 172/82 92 Nasal 1.0L Cannula Physical Exam General Appearance Alert, Oriented X3, Cooperative, No Acute Distress Skin No Rashes, No Breakdown, No Significant Lesion Skin Temp/Moisture Exam: Warm/Dry HEENT Atraumatic, PERRLA, EOMI, Mucous Membr. moist/pink, bilateral fine nystagmus Neck Supple, No JVD Lymphatic no cervical lymphadenopathy Cardiovascular Regular Rate, Normal S1, Normal S2, No Murmurs Lungs bilateral decreased air entry, prolonged expiratory phase, rhonchi, fine wheeze Abdomen Normal Bowel Sounds, Soft, No Tenderness Neurological Normal Gait, Normal Speech, Strength at 5/5 X4 Ext, Normal Tone, Sensation Intact, Cranial Nerves 3-12 NL, Reflexes 2+ Extremities No Clubbing, No Cyanosis, No Edema, Normal Pulses Assessment/Plan Assessment: Ms. Escobar is 67 year old female with past medical history significant for COPD on 2 L home oxygen, coronary artery disease, atrial fibrillation not on anticoagulation because of history of bleeding, viral meningitis, osteoarthritis who presented to ED with chief complaint of nausea, fever and chills for 1 day. On admission Vital signs temperature 100.6, pulse 109, blood pressure 172/82, respiratory rate 20 with saturation 92% on 1 L labs WBC 29.2, H&H 10.2/30.9, platelet 568, sodium 134, potassium 3.2, chloride 96, bicarbonate 27, BUN/creatinine 11/0.7, glucose 93, AST within normal, drops 0.05, lactic acid 0.8 Chest x-ray Interval development of patchy airspace opacities within the left lung apex. A subtle opacity is also visualized within the right upper lobe. This could reflect infection. Recommend follow-up PA and lateral chest x-ray following treatment to ensure resolution and to exclude underlying malignancy given the patient's clinical risk factors. Radiographic findings suggestive of underlying COPD. Problem list #Community-acquired pneumonia with fever, leukocytosis #Possible flu #Tension headache with no alarming symptoms #COPD on home oxygen #Thrombocytosis #Chronic anemia #Atrial fibrillation not on anticoagulation #Osteoarthritis Plan -Admit to telemetry floor for close monitoring -Antibiotic ceftriaxone and doxycycline for prolonged QTc -We'll check flu rapid test -TRC, continue home nebs -Tigan for nausea -Acetaminophen for headache, consider CT head is not improving -Avoid NSAIDs given history of GI bleeding -We'll obtain pulmonary consultation IN A.M. -We'll continue home medication -DVT prophylaxis heparin subcutaneous -Diet heart healthy -Code full As Ranked By This Provider Problem List: 1. COPD 2. Pneumonia Core Measures/Miscellaneous Acute Coronary Syndrome ACS Diagnosis: No Cerebrovascular Accident CVA/TIA Diagnosis: No Congestive Heart Failure CHF Diagnosis: No Venous Thromboembolism VTE Risk Factors: Age > 40 [facility] prophylaxis d/t: No contraindications No VTE Pharm Prophylaxis d/t: No contraindications VTE Diagnosis: No VTE Type: NONE VTE Confirmed by (Test): NONE Severe Sepsis Severe Sepsis Present: No Septic Shock Septic Shock Present: No Miscellaneous Documentation Attending Case Discussed With: ROXANNE GARLAND MD Primary Care Physician: DEDE MARION MD Patient sees these Specialists Cardiology, hematology, GI, pulmonology Level of Patient Care: Telemetry ELIAHO CORDOBA 01/26/17 0209: General Information and HPI Allergies/Medications Home Med list Acetaminophen (Arthritis Pain Reliever) 650 MG TABLET.ER 2 TAB PO PRN PAIN ( Reported) Albuterol Sulfate 2.5 MG/3 ML (0.083 %) VIAL.NEB 1 Vial INH/DANIKA 4XDAILY PRN RESPIRATORY (Reported) Alprazolam 0.5 MG TABLET 1 TAB PO DAILY ANXIETY (Reported) Arformoterol Tartrate (Brovana) 15 MCG/2 ML VIAL.NEB 1 VIAL INH DAILY RESPIRATORY (Reported) Ascorbic Acid (Vitamin C) 500 MG CAPSULE.ER 1 CAP PO DAILY SUPPLEMENT ( Reported) Budesonide (Pulmicort) 0.5 MG/2 ML AMPUL.NEB 1 Vial INH/DANIKA BID COPD ( Reported) Bupropion HCl (Bupropion HCl Sr) 200 MG TABLET.ER 1 TAB PO QAM DEPRESSION ( Reported) Calcium Carbonate/Vitamin D3 (Caltrate 600 + D Tablet) 1 EACH TABLET 1 TAB PO DAILY SUPPLEMENT (Reported) Cholecalciferol (Vitamin D3) (Vitamin D3) 400 UNIT TABLET 1 TAB PO DAILY SUPPLEMENT (Reported) Diltiazem HCl (Diltiazem ER) 180 MG CAPSULE.ER 1 TAB PO DAILY heart rate ( Reported) Docusate Sodium (Colace) 100 MG CAPSULE 2 CAP PO QPM STOOL SOFTENER (Reported ) Dofetilide (Tikosyn) 250 MCG CAPSULE 1 CAP PO BID ANTIARRHYTHMIC Ezetimibe (Zetia) 10 MG TABLET 1 TAB PO DAILY CHOLESTEROL (Reported) Ferrous Sulfate 325 MG (65 MG IRON) TABLET 1 TAB PO DAILY SUPPLEMENT ( Reported) Fluticasone/Salmeterol (Advair 250-50 Diskus) 250 MCG-50 MCG/DOSE BLST.W.DEV 1 PUF INH BID BREATHING PROBLEMS (Reported) Folic Acid 1 MG TABLET 1 TAB PO DAILY SUPPLEMENT (Reported) Furosemide (Lasix) 40 MG TABLET 1 TAB PO BID WATER PILL (Reported) Guaifenesin (Mucinex) 600 MG TAB.ER.12H 1 TAB PO DAILY EXPECTORANT (Reported) Levothyroxine Sodium 100 MCG TABLET 1 TAB PO DAILY AC THYROID (Reported) Losartan Potassium 50 MG TABLET 1 TAB PO DAILY BP (Reported) Montelukast Sodium 10 MG TABLET 1 TAB PO DAILY COPD (Reported) Nitroglycerin (Nitro-Dur) 0.6 MG/HOUR PATCH.TD24 1 PATCH TOP DAILY HEART ( Reported) [place]-3 Fatty Acids/Fish Oil (Fish Oil 1,000 MG Capsule) 340 MG-1,000 MG CAPSULE 2 CAP PO DAILY SUPPLEMENT (Reported) Omeprazole 40 MG CAPSULE.DR 1 CAP PO DAILY GI (Reported) Potassium Chloride 20 MEQ TAB.ER.PRT 1 TAB PO DAILY SUPPLEMENT (Reported) Pravastatin Sodium (Pravachol) 40 MG TABLET 1 TAB PO QPM CHOLESTEROL ( Reported) Roflumilast (Daliresp) 500 MCG TABLET 1 TAB PO DAILY COPD (Reported) Sertraline HCl (Zoloft) 100 MG TABLET 2 TAB PO DAILY DEPRESSION (Reported) Sucralfate 1 GM TABLET 1 TAB PO 4 TIMES/DAY PUD (Reported) Tiotropium Harrison (Spiriva) 18 MCG CAP.W.DEV 1 CAP INH DAILY copd Reason to Stop at ADM:TRC NEBS ORDERS Vitamin E (Dl,Tocopheryl Acet) (Vitamin E) 400 UNIT CAPSULE 1 TAB PO DAILY SUPPLEMENT (Reported) Resident Review Statement Resident Statement: examined this patient, discussed with logistics intern, agreed with logistics intern, amended to note Other Findings: 67-year-old lady with past pedicles of COPD on 2 L oxygen, CAD, A. fib not on anticoagulation on Tikosyn, osteoarthritis, anemia, anxiety, Gisselle chief complaint of nausea, not feeling well," for one day and also bilateral shoulder pain and neck pain for couple of days. Patient had bone colonoscopy today-after that she was feeling very sick with nausea resulted coming to ED. Patient also has history of headaches and cough for couple of days reported of yellow mucus discharge and congestion. Patient was recently seen by Dr. Stubbs and she was on prednisone by Dr. Alberts which was finished 4 days ago. Vital signs on admission were stable with mild fever and nasal cannula 2 L ( detials above) Physical exam to document any symptoms of meningismus, decreased breath sounds bilaterally in the lungs with expiratory wheezing. (details are above) CXR: IMPRESSION: Interval development of patchy airspace opacities within the left lung apex. A subtle opacity is also visualized within the right upper lobe. This could reflect infection. Recommend follow-up PA and lateral chest x-ray following treatment to ensure resolution and to exclude underlying malignancy given the patient's clinical risk factors. Labs are notable for WBC around 30,000, hemoglobin 10, platelets more than 500, 000, potassium 3.2 EKG showed sinus arrhythmia with atypical P waves, T inversion in V3 and V4, 82, QTC 500 Assessment and plan #Multilobar pneumonia with COPD exacerbation -Patient patient on IV ceftriaxone and doxycycline due to prolonged QTC -Tylenol for pain and fever -Check rapid flu, blood culture, sputum culture -Urine legionella and strep antigen -TRC -IV Solu-Medrol 40 every 8 -Pulmonology consult in the morning -Mild IV hydration -Continue on Singulair and Daliresp #EKG changes/hx of afb/CAD/HTN/HLP/HYPOTHRYODISM -Admit to telemetry -Serial troponin and EKGs 3 -Check QTC in the morning and 8 beats more than 500 discussed with the cardiology attending for redosing of Tikosyn -Continue diltiazem, hold Cozaar and Lasix for now -Nitropatch in the morning -Continue statin -Continue levothyroxine Full code, DVT prophylaxis is mechanical and pharmacological, Vicodin for pain ROXANNE GARLAND 01/26/17 0525: Attending MD Review Statement Attending Statement Attending MD Statement: examined this patient, discuss w/resident/PA/C[employer]LL P[employer]ER [employer] IRON, agreed w/resident/PA/[employer], reviewed EMR data (avail), reviewed images, amended to note Attending Assessment/Plan: CC: Fever, chills, cough with yellow sputum production PMH: HTN, COPD on 2 L NC, CAD, A. fib not on anticoagulant, currently on dofetilide, NSR , hypothyroidism, osteoarthritis Patient underwent a scheduled colonoscopy today at [facility] for her evaluation of chronic anemia, she had EGD 2 weeks back and 5 polyps were removed , patient had been feeling sick since 3-4 days so while coming back, she asked EMS to take her to . Since last 3-4 days she had been feeling headache, neck stiffness, cough with yellow sputum production, nasal congestion and yellow discharge, fevers and chills. Patient complains of shoulder pain since last 2 weeks, associated with numbness in her hands when she sleeps, attributing to severe arthritis, currently denying such pain. Vitals: T max 100.6, HR 109, RR 20, blood pressure 172/82 at presentation saturating 92% on 2 L NC On exam: A O 3, cooperative, mild respiratory distress, neck supple, JVD normal , no lymphadenopathy, mucosa dry, no focal neurological deficit, no dependent edema, no obvious skin rashes or inflammation CVS: S1-S2, RRR. RS: Extensive wheezing bilaterally. Abdomen: Soft, NT, ND, bowel sounds present. Peripheral pulses perfusion normal. Labs: WBC 29.2, neutrophil 89%, bands 6, hemoglobin 10.2, platelet 568, sodium 134, potassium 3.2, chloride 96, bicarbonate 27, gap 11, creatinine 0.7, LFT unremarkable, lactate 0.8. UA unremarkable CXR: #1 Interval development of patchy airspace opacities within the left lung apex. A subtle opacity is also visualized within the right upper lobe. This could reflect infection. Recommend follow-up PA and lateral chest x-ray following treatment to ensure resolution and to exclude underlying malignancy given the patient's clinical risk factors. #2 Radiographic findings suggestive of underlying COPD. EKG: T-wave inversion lateral leads A and P Patient presents with worsening of shortness of breath, productive cough, fever, chills, myalgia, significant wheezing, leukocytosis, fever and chest x-ray showing pulmonary infiltrates. We'll admit for community-acquired pneumonia , less likely aspiration as symptoms started before colonoscopy and much after previous EGD . Overnight admission on telemetry for T-wave changes. + Community-acquired pneumonia + Lateral lead T-wave changes + COPD exacerbation + Chronic anemia under investigation + History of HTN, CAD, A. fib, currently on dofetilide, NSR , hypothyroidism, osteoarthritis - Admit to telemetry - Continue ceftriaxone and doxycycline - Continue gentle hydration as tolerated by blood pressure - Hold losartan and Lasix continue all her home medications - Serial troponins and EKG, informed cardiology if elevated troponin or any further EKG changes. - IV methylprednisolone 40 mg every 8 hours - Nebulizations with albuterol and ipratropium - Mucinex - Sputum culture, blood culture - Replace electrolytes - Adequate pain control, DVT prophylaxis with Alps and heparin. - Full code
[2017-01-25] MEDS ORDERED: DILTIAZEM ER180 M1 PO (21:21)
--- NOTE | 2017-01-25 22:09 | NUR ---
PT BED ASSIGNMENT 179-2
--- NOTE | 2017-01-25 22:56 | NUR ---
REPORT CALLED TO [facility] ON 1N. PT TO BE TRANSPORTED TO UNIT BY RN. FLU SWAB SEND PRIOR TO TRANSFER
[2017-01-26 00:19] VITALS: BP 130/60
--- NOTE | 2017-01-26 05:26 | Admission Certification ---
Admission Certification Certification Statement - As attending physician, I certify that at the time of - admission, based on clinical presentation, severity of - symptoms, need for further diagnostic testing and - therapeutic interventions, and risk of adverse outcomes - without in-hospital treatment, in my clinical assessment, - this patient requires an acute hospital stay for a minimum - of two nights or longer. I have also considered psychsocial - factors such as support system, advanced age, financial - issues, cognitive issues, and failed out-patient treatments, - past re-admission history, safety of patient, and lack of - compliance as applicable. Specific rationale supporting this admission is: Community-acquired pneumonia
[2017-01-26 07:56] VITALS: BP 122/60
--- NOTE | 2017-01-26 08:50 | PN- Housestaff ---
DERICK ETIENNE,[facility] [place] 0850: Subjective Follow-up For: Community acquired pneumonia T wave changes COPD exacerbation Tele-Events Since Last Visit: Normal sinus rhythm HR 68-99 PACs and PVCs Subjective: No acute events overnight. Patient seen and examined this morning. She feels that her shortness of breath is getting worse today. She reports that her sputum was huffman and bloody this morning. She denies chest pain, shortness of breath or palpitations. She endorses headache and neck pain radiating to her shoulders. She reports episodes of aspiration on thin liquids. She remains on 2 L NC. Review of Systems Constitutional: Reports: see HPI. Objective Last 24 Hrs of Vital Signs/I&O Vital Signs Date Time Temp Pulse Resp B/P B/P Pulse O2 O2 Flow FiO2 Mean Ox Delivery Rate 01/27 0050 98.6 72 20 110/60 98 Nasal 2.0L Cannula / 1918 82 130/60 05/ 1709 99 Nasal 2.0L Cannula / 1600 98 Nasal 2.0L Cannula / 1530 98.3 68 18 118/62 98 Nasal 2.0L Cannula /06 0942 Nasal 2.0L Cannula /06 0815 99 Nasal 2.0L Cannula / 0800 97 Nasal 2.0L Cannula /06 0756 98.3 70 16 122/60 97 Nasal 2.0L Cannula /06 0126 99 Nasal 2.0L Cannula Intake & Output 07 0800 05/07 0000 05/06 1600 Intake Total 440 1140 Output Total 1000 Balance 440 140 Intake, IV 300 Intake, Oral 440 840 Output, Urine 1000 Physical Exam General Appearance: Alert, Oriented X3, No Acute Distress HEENT: Atraumatic, Mucous Membr. moist/pink Neck: Supple Cardiovascular: Regular Rate, Normal S1, Normal S2, No Murmurs, Gallops, Rubs Lungs: Scattered Wheezes Throughout Bilateral Lung Encarnacion Abdomen: Soft, No Tenderness, Positive Bowel Sounds Extremities: No Clubbing, No Cyanosis, No Edema Current Medications: Current Medications Sig/Lana Start time Last Medication Dose Route Stop Time Status Admin Acetaminophen 650 MG Q6P PRN 01/25 2215 AC PO Acetaminophen/ 1 TAB Q8P PRN 01/26 0130 AC 05/06 Hydrocodone Bitart PO 2213 Albuterol Sulfate 3 ML EVERY 4 HRS/AWAKE 01/26 0815 AC 01/26 INH 2100 Alprazolam 0.5 MG DAILY 01/26 1000 AC 01/26 PO 02/02 0959 0908 Arformoterol Tartrate 15 MCG DAILY 01/26 1000 AC 01/26 INH 1138 Ascorbic Acid 500 MG DAILY 01/26 1000 AC 01/26 PO 0907 Budesonide 0.5 MG BID 01/26 1000 AC 01/26 INH 1709 Budesonide/ 2 PUF BID 01/26 1000 CAN Formoterol Fumarate INH Bupropion HCl 200 MG DAILY 01/26 1000 AC 01/26 PO 0908 Ceftriaxone Sodium 1,000 MG 2200 01/26 2200 AC 01/26 IV 2207 Diltiazem HCl 180 MG DAILY 01/26 1000 AC 01/26 PO 0905 Dofetilide 250 MCG BID 01/26 1000 DC PO Dofetilide 250 MCG BID 01/26 1000 DC PO Dofetilide 250 MCG BID 01/26 0015 AC 01/26 PO 2206 Doxycycline Hyclate 100 MG Q12 01/26 2200 AC 01/26 Sodium Chloride 100 ML IV 2209 Enoxaparin Sodium 40 MG DAILY 01/26 1000 AC 01/26 SC 0905 Ezetimibe 10 MG DAILY 01/26 1000 AC 01/26 PO 0908 Ferrous Sulfate 325 MG DAILY 01/26 1000 AC 01/26 PO 0905 Folic Acid 1 MG DAILY 01/26 1000 AC 01/26 PO 0905 Furosemide 40 MG BID 01/26 2200 AC PO Guaifenesin 600 MG DAILY 01/26 1000 AC 01/26 PO 0906 Levothyroxine Sodium 0.1 MG DAILY AC 01/26 0700 AC 01/26 PO 0515 Losartan Potassium 50 MG DAILY 01/26 1743 AC 05 PO 1918 Magnesium Oxide 400 MG ONE ONE 01/26 2045 DC 01/26 PO 01/26 2046 220 Melatonin 3 MG AT BEDTIME PRN 01/26 1945 AC 01/26 PO 221 Methylprednisolone 40 MG Q6 01/26 0600 DC IV Methylprednisolone 40 MG Q8 01/26 0600 AC 01/26 IV 220 Montelukast Sodium 10 MG AT BEDTIME 01/26 2200 AC 01/26 PO 2217 Montelukast Sodium 10 MG DAILY 01/26 1000 DC PO Nitroglycerin 0.6 MG DAILY 05/06 1000 AC 01/26 TOP 0907 Omeprazole 40 MG DAILY AC 01/26 0700 AC 01/26 PO 0515 Patient Medication 1 UNIT ONE NR 01/[address] Teaching ED 01/26 1830 Patient Medication 1 UNIT ONE NR 01/26 1815 [facility] 01/26 1830 Potassium Chloride 20 MEQ DAILY 01/26 1000 AC / PO 0905 Pravastatin Sodium 40 MG AT BEDTIME 01/26 2200 AC 01/26 PO 2207 Pravastatin Sodium 40 MG DAILY 01/[address] PO Roflumilast 500 MCG DAILY 01/26 1000 AC 01/26 PO 0918 Sertraline HCl 200 MG DAILY 01/26 1000 AC 01/26 PO 0908 Sodium Chloride 1,000 ML Q13H 01/[address] 01/26 IV 01/26 1044 0100 Sucralfate 1,000 MG 4 TIMES/DAY 01/25 2200 AC 01/26 PO 2206 Tiotropium [place] 1 PUF DAILY 01/26 1000 AC 01/26 INH 0947 Tramadol HCl 50 MG Q8P PRN 01/[address] PO Trimethobenzamide HCl 200 MG TIDPRN PRN 01/26 0230 AC IM Last 24 Hrs of Lab/Wan Results Last 24 Hrs of Labs/Mics: Laboratory Tests 01/26/17 0610: Anion Gap 11, Estimated GFR > 60, BUN/Creatinine Ratio 16.7, Magnesium 1.8, Troponin I 0.03, CBC w Diff MAN DIFF ORDERED, RBC 3.16 L, MCV 91.0, MCH 30.0, RDW 15.0 H, MPV 7.1 L, Gran % 97.1 H, Lymphocytes % 1.2 L, Monocytes % 1.7, Eosinophils % 0, Basophils % 0 L, Absolute Granulocytes 37.0 H, Absolute Lymphocytes 0.5 L, Absolute Monocytes 0.7 H, Absolute Eosinophils 0, Absolute Basophils 0, Poikilocytosis 1+, Anisocytosis 1+, PUBS MCHC 33.0 01/26/17 0300: Urine Color YEL, Urine Clarity CLEAR, Urine pH 6.0, Ur Specific [place] 1.015, Urine Protein TRACE H, Urine Ketones NEG, Urine Nitrite NEG, Urine Bilirubin NEG, Urine Urobilinogen 0.2, Ur Leukocyte Esterase NEG, Ur Microscopic SEDIMENT EXAMINED, Urine WBC RARE, Ur Epithelial Cells RARE, Urine Bacteria RARE H, Urine Hemoglobin NEG, Urine Glucose 100 H 01/26/17 0115: Troponin I 0.04 Strep pneumo and Legionella urinary antigen (01/26/17): Negative BCx (01/25/17): Negative Rapid flu (01/25/17): Negative Orders Radiology Findings: XR SOFT TISSUE NECK: 1. Airways unremarkable. 2. Soft tissue calcifications in the upper lateral neck, possibly calcified lymph nodes. Assessment/Plan Assessment: 67 y/o F with PMHx of COPD on 2 L NC, CAD and atrial fibrillation not on anticoagulation who is admitted for community acquired pneumonia. #Community acquired pneumonia: On day 2 of IV ceftriaxone and doxycycline, with temperatures remaining normal but with worsening leukocytosis, WBC 38.6 this morning, likely secondary to IV steroids. Strep pneumo and Legionella urinary antigens and rapid flu negative. * Continue ceftriaxone 1 g IV daily and doxycycline 100 mg IV Q12H (azithromycin is contraindicated as patient is on dofetilide). * Follow BCx and sputum Cx. #COPD exacerbation: Exam remarkable for wheezing. Currently on 2 L oxygen which is her baseline requirement. * Continue Solumedrol 40 mg IV Q8H. * Continue npdpe-jc-bgycoyqko roflumilast 500 mcg PO daily. * Continue rrjqj-xl-dhhzvowww Spiriva inhaler, Pulmbicort and Brovana nebuliizers. * TRC and nebs. * Provide supplemental oxygen as needed to keep SpO2 >92%. * Continue Mucinex. #Neck pain: Neck XR with moderate degenerative changes secondary to underlying osteoarthritis. * Vicodin PRN for pain. #EKG changes: EKG with T-wave changes in inferior leads that are persistent this morning. Mild troponin elevation to 0.05 which have downtrended. No chest pain. * Cardiology consulted. Appreciate their recs. #Dysphagia: Self-reported aspiration with thin liquids. * Formal swallow evaluation ordered. #HTN: * Resume ymose-mz-zbdrgcfum Lasix 40 mg PO BID and losartan 50 mg PO daily. #Atrial fibrillation: Remains in normal sinus rhythm. Not on any anticoagulation due to history of bleeding. * Continue Cardizem CD 120 mg PO daily and dofetilide 250 mcg PO BID. Diet: Heart healthy DVT PPx: Lovenox and ALPs CODE: FULL Problem List: 1. COPD exacerbation 2. CAP (community acquired pneumonia) 3. Abnormal EKG 4. Neck pain 5. Aspiration of liquid 6. Osteoarthritis 7. Atrial fibrillation 8. CAD (coronary artery disease) Pain Ratin Pain Location: Neck pain Pain Goal: Pain 4 or less Pain Plan: Tylenol 650 mg PO Q6H PRN for mild pain (scale 1-3) Vicodin 1 tab PO Q8H PRN for moderate pian (scale 4-6) Tomorrow's Labs & Rationales: CBC to monitor WBC count in the setting of marked leukocytosis BMP and Mg to monitor lytes in the setting of hypokalemia NARCISA TOMAS MD 01/26/17 1552: Attending MD Review Statement Attending Statement Attending MD Statement: examined this patient, discuss w/resident/PA/TECHNICAL SALES MANAGER, agreed w/resident/PA/TECHNICAL SALES MANAGER, reviewed EMR data (avail), discussed with nursing, discussed with case mgmt, amended to note Attending Assessment/Plan: Patient seen and examined. Lying comfortably in bed not in acute distress. Reports feeling slightly better today compared to presentation. Denies chest pain. Denies palpitations. Admits to dyspnea on exertion. Reports coughing yellow colored phlegm. On examination she has diffuse rhonchi bilaterally. Recommendations: -Continue bronchodilator therapy. Continue systemic steroid therapy. -Continue antibiotic therapy with IV ceftriaxone and doxycycline (azithromycin is contraindicated as patient is on Tikosyn) her leukocytosis is likely combination of her underlying infection and steroid therapy. We'll continue to monitor closely. -She gives report of aspiration with thin liquids on occasion. Recommend formal swallow evaluation. -Recommend x-ray of her neck for further evaluation of her neck pain radiating to shoulders. Pain is likely secondary to underlying osteoarthritis -Continue pain control with Vicodin. -EKG on presentation showed T-wave inversion in inferior leads. Persistent this morning. Recommend evaluation by the cardiology service. -Resume her losartan and lasix.
[2017-01-26 09:09] LABS: ABSOLUTE BASOPHIL COUNT 0 /CUMM (0.0-0.2); ABSOLUTE EOSINOPHIL COUNT 0 /CUMM (0.0-0.7); ABSOLUTE LYMPH COUNT 0.5 /CUMM (1.2-3.4); ABSOLUTE MONOCYTE COUNT 0.7 /CUMM (0.10-0.60); BASOPHIL % 0 % (0.0-2.0); EOSINOPHIL % 0 % (0-5); GRANULOCYTE % 97.1 % (42.2-75.2); HEMATOCRIT 28.8 % (37-47); MEAN PLATELET VOLUME 7.1 FL (7.4-10.4); PLATELET COUNT 507 /CUMM (130-400); RED BLOOD CELL CT 3.16 /CUMM (4.20-5.40)
[2017-01-26 10:56] LABS: WHITE BLOOD CELL COUNT 38.1 /CUMM (4.8-10.8)
[2017-01-26 15:30] VITALS: BP 118/62
--- NOTE | 2017-01-26 16:42 | RADIOLOGY REPORT ---
EXAMINATION: XR SOFT TISSUE NECK CLINICAL INDICATION: 67-year-old female patient with past medical history of COPD. Here with community-acquired pneumonia. Evaluate for abnormalities in the setting of dysphagia. COMPARISON: Chest x-ray dated 01/25/2017. CT scan of the chest dated 06/18/2014). TECHNIQUE: 2 views of the soft tissue neck were obtained. FINDINGS: The air-filled vallecula, piriform sinuses, oral and hypopharynx and upper trachea appear unremarkable. The glottis and aryepiglottic fold is normal. There is a conglomeration of coarse calcifications seen within the left upper neck extending over a 2.6 x 1.1 cm region. There may also be subtle calcifications in the right side of the upper neck. Findings may represent calcified lymph nodes. In reviewing a CT scan of the chest, which included the lower neck on 06/18/2014, no definite correlate is found. There is moderate degenerative disc disease at C5-C6 and to a lesser extent at C6-C7 with disc space narrowing and vertebral endplate sclerosis and spurring and cystic changes seen. Reversal of the normal cervical lordosis is seen, suggesting muscle spasm. IMPRESSION: 1. Airways unremarkable. 2. Soft tissue calcifications in the upper lateral neck, possibly calcified lymph nodes.
[2017-01-27 00:50] VITALS: BP 110/60
[2017-01-27 07:59] VITALS: BP 140/80
--- NOTE | 2017-01-27 08:42 | PN- Housestaff ---
ALTAF ETIENNE,MARY 01/27/17 0842: Subjective Follow-up For: Community acquired pneumonia T wave changes COPD exacerbation Tele-Events Since Last Visit: Normal sinus rhythm, heart rate ranging from 71-79, at 2 AM she had 16 beat run of V. tach. Subjective: Patient followed up and examined by me today. She is resting comfortably in her bed, with additional oxygen via nasal cannula, not in distress, does not offer any complaint, vital signs stable, telemetry event noted as above, no other issues. Review of Systems Constitutional: Reports: no symptoms. Objective Last 24 Hrs of Vital Signs/I&O Vital Signs Date Time Temp Pulse Resp B/P B/P Pulse O2 O2 Flow FiO2 Mean Ox Delivery Rate 01/27 1647 98 Nasal 2.0L Cannula 01/27 1646 98.6 74 16 138/60 97 Nasal 3.0L Cannula 01/27 1600 98 Nasal 2.0L Cannula 01/27 1001 101 140/80 01/27 0940 96 Nasal 2.0L Cannula 01/27 0800 97 Nasal 2.0L Cannula 01/27 0759 98.1 76 16 140/80 97 Nasal 2.0L Cannula 01/27 0505 Nasal 2.0L Cannula 01/27 0050 98.6 72 20 110/60 98 Nasal 2.0L Cannula 01/27 0000 Nasal 2.0L Cannula Intake & Output 01/27 1600 01/27 0800 05/ 0000 Intake Total 640 100 640 Output Total Balance 640 100 640 Intake, Oral 640 100 640 Patient 48.081 kg Weight Physical Exam General Appearance: Alert, Oriented X3, Cooperative, using additional oxygen via nasal cannula Other Physical Findings: HEENT: Atraumatic, Mucous Membr. moist/pink Neck: Supple Cardiovascular: Regular Rate, Normal S1, Normal S2, No Murmurs, Gallops, Rubs Lungs: Scattered Wheezes Throughout Bilateral Lung Encarnacion Abdomen: Soft, No Tenderness, Positive Bowel Sounds Extremities: No Clubbing, No Cyanosis, No Edema Current Medications: Current Medications Sig/Lana Start time Last Medication Dose Route Stop Time Status Admin Acetaminophen 650 MG Q6P PRN 01/25 2215 AC PO Acetaminophen/ 1 TAB Q8P PRN 01/26 0130 AC 01/27 Hydrocodone Bitart PO 0617 Albuterol Sulfate 3 ML EVERY 4 HRS/AWAKE 01/26 0815 AC 01/27 INH 2056 Alprazolam 0.5 MG DAILY 01/26 1000 AC 01/27 PO 02/02 0959 0911 Arformoterol Tartrate 15 MCG DAILY 01/26 1000 AC 01/27 INH 0930 Ascorbic Acid 500 MG DAILY 01/26 1000 AC 01/27 PO 1004 Budesonide 0.5 MG BID 01/26 1000 AC 01/27 INH 1644 Bupropion HCl 200 MG DAILY 01/26 1000 AC 01/27 PO 1004 Ceftriaxone Sodium 1,000 MG 2200 01/26 2200 AC 01/26 IV 2207 Diltiazem HCl 180 MG DAILY 01/26 1000 AC 01/27 PO 1001 Dofetilide 250 MCG BID 01/26 0015 AC 01/27 PO 1003 Doxycycline Hyclate 100 MG Q12 01/26 2200 AC 01/27 Sodium Chloride 100 ML IV 1059 Enoxaparin Sodium 40 MG DAILY 01/26 1000 AC 01/27 SC 1002 Ezetimibe 10 MG DAILY 01/26 1000 AC 01/27 PO 1004 Ferrous Sulfate 325 MG DAILY 01/26 1000 AC 01/27 PO 1002 Folic Acid 1 MG DAILY 01/26 1000 AC 01/27 PO 1002 Furosemide 40 MG BID 01/26 2200 AC 01/27 PO 1002 Guaifenesin 600 MG DAILY 01/26 1000 AC 01/27 PO 1003 Levothyroxine Sodium 0.1 MG DAILY AC 01/26 700 AC 01/27 PO 0615 Losartan Potassium 50 MG DAILY 01/26 1743 AC 01/27 PO 1001 Melatonin 3 MG AT BEDTIME PRN 01/26 1945 AC 01/26 PO 2217 Methylprednisolone 40 MG Q8 01/26 600 AC 01/27 IV 1448 Montelukast Sodium 10 MG AT BEDTIME 01/26 2200 AC 01/26 PO 2217 Nitroglycerin 0.6 MG DAILY 01/26 1000 AC 01/27 TOP 1003 Omeprazole 40 MG DAILY AC 01/26 0700 AC 01/27 PO 0615 Potassium Chloride 20 MEQ DAILY 01/26 1000 AC 01/27 PO 1002 Pravastatin Sodium 40 MG AT BEDTIME 01/26 2200 AC 01/26 PO 2207 Roflumilast 500 MCG DAILY 01/26 1000 AC 01/27 PO 1010 Sertraline HCl 200 MG DAILY 01/26 1000 AC 01/27 PO 1004 Sucralfate 1,000 MG 4 TIMES/DAY 01/25 2200 AC 01/27 PO 1827 Tiotropium [place] 1 PUF DAILY 01/26 1000 AC 01/27 INH 1003 Trimethobenzamide HCl 200 MG TIDPRN PRN 01/26 0230 AC IM Last 24 Hrs of Lab/Wan Results Last 24 Hrs of Labs/Mics: Laboratory Tests 01/27/17 0744: CBC w Diff NO MAN DIFF REQ, RBC 3.26 L, MCV 91.8, MCH 30.2, RDW 15.1 H, MPV 7.1 L, Gran % 96.4 H, Lymphocytes % 1.6 L, Monocytes % 2.0, Eosinophils % 0, Basophils % 0 L, Absolute Granulocytes 38.7 H, Absolute Lymphocytes 0.7 L, Absolute Monocytes 0.8 H, Absolute Eosinophils 0, Absolute Basophils 0, PUBS MCHC 32.9 L 01/27/17 0650: Anion Gap 9, Estimated GFR > 60, BUN/Creatinine Ratio 18.3, Magnesium 2.0 Microbiology 01/28 800 LOWER RESP: Respiratory Culture - RES 01/28 800 LOWER RESP: Gram Stain - RES Assessment/Plan Assessment: 67 y/o F with PMHx of COPD on 2 L NC, CAD and atrial fibrillation not on anticoagulation who is admitted for community acquired pneumonia. #Persistent leukocytosis Patient has persistent leukocytosis today at 40.1, with differentials being steroids, community acquired pneumonia, COPD exacerbation, or possible abdominal viscus perforation. CAT scan of the abdomen was ordered for pulmonary consultation which did not show any perforation or leaks. Patient's vitals have been stable otherwise, will continue to observe. #Community acquired pneumonia: On day 3 of IV ceftriaxone and doxycycline, with temperatures remaining normal but with worsening leukocytosis, WBC 40.1 this morning, likely secondary to IV steroids. Strep pneumo and Legionella urinary antigens and rapid flu negative. * Continue ceftriaxone 1 g IV daily and doxycycline 100 mg IV Q12H (azithromycin is contraindicated as patient is on dofetilide). * Follow BCx and sputum Cx. #COPD exacerbation: Exam remarkable for wheezing. Currently on 2 L oxygen which is her baseline requirement. * Continue Solumedrol 40 mg IV Q8H. * Continue bykwn-rn-pmrirvoda roflumilast 500 mcg PO daily. * Continue ncsog-nd-bggbogdta Spiriva inhaler, Pulmbicort and Brovana nebuliizers. * TRC and nebs. * Provide supplemental oxygen as needed to keep SpO2 >92%. * Continue Mucinex. #Neck pain: Neck XR with moderate degenerative changes secondary to underlying osteoarthritis. * Vicodin PRN for pain. #EKG changes: EKG with T-wave changes in inferior leads that are persistent this morning. Mild troponin elevation to 0.05 which have downtrended. No chest pain. * Cardiology consulted. Appreciate their recs. #Dysphagia: Self-reported aspiration with thin liquids. * Formal swallow evaluation ordered. #HTN: * Resume bfyil-hq-ldwqtvflr Lasix 40 mg PO BID and losartan 50 mg PO daily. #Atrial fibrillation: Remains in normal sinus rhythm. Not on any anticoagulation due to history of bleeding. * Continue Cardizem CD 120 mg PO daily and dofetilide 250 mcg PO BID. Diet: Heart healthy DVT PPx: Lovenox and ALPs CODE: FULL Problem List: 1. CAP (community acquired pneumonia) 2. COPD (chronic obstructive pulmonary disease) 3. Leukocytosis Pain Ratin Pain Location: - Pain Goal: Pain 4 or less Pain Plan: prn Tomorrow's Labs & Rationales: CBC, BEP for persistent leukocytosis. GENOVEVA ETIENNE,NARCISA 01/27/17 1409: Attending MD Review Statement Attending Statement Attending MD Statement: examined this patient, discuss w/resident/PA/HIGH SPEED OPERATOR, agreed w/resident/PA/HIGH SPEED OPERATOR, discussed with family, reviewed EMR data (avail), discussed with nursing, amended to note Attending Assessment/Plan: Patient seen and examined. Continues complain of shortness of breath and productive cough. She denies chest pain. Denies palpitations. She denies nausea vomiting. She denies abdominal pain. She denies diarrhea. She is no longer febrile and she remains hemodynamically stable. However she continues to have significant leukocytosis with high levels today of 40.1. She was evaluated by the pulmonology service today who entertained the possibility of an acute intra-abdominal process given her recent EGD/colonoscopy. Patient however has no GI complaints. CT abdomen and pelvis was done today and showed no evidence of an acute intra-abdominal process. On examination she continues have diffuse rhonchi bilaterally. Heart sounds are regular. Abdomen is nondistended, soft and nontender. She has no peripheral edema. Overnight on telemetry patient had a 16 beat run of ventricular tachycardia Problems: 1. Acute COPD exacerbation. 2. Marked leukocytosis; present on admission. Now probably exacerbated by steroid therapy. 3. Chronic anemia; stable 4. Bilateral pneumonia evidenced on chest x-ray done on admission. 5. Chronic neck pain. Neck x-ray shows evidence of severe DJD. 6. Abnormal EKG on presentation. 7. Nonsustained ventricular tachycardia; 16 beat run of V. tach overnight. Plan: -Please repeat EKG today. Please consult the cardiology service for evaluation of abnormal EKG and nonsustained ventricular tachycardia. -Obtain echocardiogram. -Continue her Tikosyn. -Continue bronchodilator therapy. Continue antibiotic therapy with ceftriaxone and doxycycline. -Continue blood pressure control losartan, diltiazem. Continue Lasix.
[2017-01-27 09:30] LABS: ABSOLUTE BASOPHIL COUNT 0 /CUMM (0.0-0.2); ABSOLUTE EOSINOPHIL COUNT 0 /CUMM (0.0-0.7); ABSOLUTE GRANULOCYTE CT 38.7 /CUMM (1.4-6.5); ABSOLUTE LYMPH COUNT 0.7 /CUMM (1.2-3.4); ABSOLUTE MONOCYTE COUNT 0.8 /CUMM (0.10-0.60); BASOPHIL % 0 % (0.0-2.0); EOSINOPHIL % 0 % (0-5); GRANULOCYTE % 96.4 % (42.2-75.2); MEAN CORPUSCULAR HGB 30.2 PG (27.0-31.0); MEAN CORPUSCULAR HGB CONC 32.9 G/DL (33.0-37.0); MEAN CORPUSCULAR VOLUME 91.8 FL (81.0-99.0); MEAN PLATELET VOLUME 7.1 FL (7.4-10.4); PLATELET COUNT 517 /CUMM (130-400); RBC DISTRIBUTION WIDTH 15.1 % (11.5-14.5); RED BLOOD CELL CT 3.26 /CUMM (4.20-5.40)
--- NOTE | 2017-01-27 09:40 | Cons- Pulmonary ---
"General Information and HPI Consulting Request Date of Consult: 01/27/17 Requested By: ruben Reason for Consult: Shortness of breath History of Present Illness: Patient is 67-year-old with advanced COPD chronic blood loss anemia recently underwent endoscopy and colonoscopy. She was admitted with increasing shortness of breath has had marked leukocytosis fever and left shift. Chest x-ray shows biapical densities. Patient is started on antibiotics but continues to feel poorly her sputum is described as yellow slightly blood-tinged. She denies abdominal pain but is on steroids Allergies/Medications Allergies: Coded Allergies: menotropins (HIVES FROM PERGONAL 11/15/15) Home Med List: Acetaminophen (Arthritis Pain Reliever) 650 MG TABLET.ER 2 TAB PO PRN PAIN ( Reported) Albuterol Sulfate 2.5 MG/3 ML (0.083 %) VIAL.NEB 1 Vial INH/DANIKA 4XDAILY PRN RESPIRATORY (Reported) Alprazolam 0.5 MG TABLET 1 TAB PO DAILY ANXIETY (Reported) Arformoterol Tartrate (Brovana) 15 MCG/2 ML VIAL.NEB 1 VIAL INH DAILY RESPIRATORY (Reported) Ascorbic Acid (Vitamin C) 500 MG CAPSULE.ER 1 CAP PO DAILY SUPPLEMENT ( Reported) Budesonide (Pulmicort) 0.5 MG/2 ML AMPUL.NEB 1 Vial INH/DANIKA BID COPD ( Reported) Bupropion HCl (Bupropion HCl Sr) 200 MG TABLET.ER 1 TAB PO QAM DEPRESSION ( Reported) Calcium Carbonate/Vitamin D3 (Caltrate 600 + D Tablet) 1 EACH TABLET 1 TAB PO DAILY SUPPLEMENT (Reported) Cholecalciferol (Vitamin D3) (Vitamin D3) 400 UNIT TABLET 1 TAB PO DAILY SUPPLEMENT (Reported) Diltiazem HCl (Diltiazem ER) 180 MG CAPSULE.ER 1 TAB PO DAILY heart rate ( Reported) Docusate Sodium (Colace) 100 MG CAPSULE 2 CAP PO QPM STOOL SOFTENER (Reported ) Dofetilide (Tikosyn) 250 MCG CAPSULE 1 CAP PO BID ANTIARRHYTHMIC Ezetimibe (Zetia) 10 MG TABLET 1 TAB PO DAILY CHOLESTEROL (Reported) Ferrous Sulfate 325 MG (65 MG IRON) TABLET 1 TAB PO DAILY SUPPLEMENT ( Reported) Fluticasone/Salmeterol (Advair 250-50 Diskus) 250 MCG-50 MCG/DOSE BLST.W.DEV 1 PUF INH BID BREATHING PROBLEMS (Reported) Folic Acid 1 MG TABLET 1 TAB PO DAILY SUPPLEMENT (Reported) Furosemide (Lasix) 40 MG TABLET 1 TAB PO BID WATER PILL (Reported) Guaifenesin (Mucinex) 600 MG TAB.ER.12H 1 TAB PO DAILY EXPECTORANT (Reported) Levothyroxine Sodium 100 MCG TABLET 1 TAB PO DAILY AC THYROID (Reported) Losartan Potassium 50 MG TABLET 1 TAB PO DAILY BP (Reported) Montelukast Sodium 10 MG TABLET 1 TAB PO DAILY COPD (Reported) Nitroglycerin (Nitro-Dur) 0.6 MG/HOUR PATCH.TD24 1 PATCH TOP DAILY HEART ( Reported) [place]-3 Fatty Acids/Fish Oil (Fish Oil 1,000 MG Capsule) 340 MG-1,000 MG CAPSULE 2 CAP PO DAILY SUPPLEMENT (Reported) Omeprazole 40 MG CAPSULE.DR 1 CAP PO DAILY GI (Reported) Potassium Chloride 20 MEQ TAB.ER.PRT 1 TAB PO DAILY SUPPLEMENT (Reported) Pravastatin Sodium (Pravachol) 40 MG TABLET 1 TAB PO QPM CHOLESTEROL ( Reported) Roflumilast (Daliresp) 500 MCG TABLET 1 TAB PO DAILY COPD (Reported) Sertraline HCl (Zoloft) 100 MG TABLET 2 TAB PO DAILY DEPRESSION (Reported) Sucralfate 1 GM TABLET 1 TAB PO 4 TIMES/DAY PUD (Reported) Tiotropium [place] (Spiriva) 18 MCG CAP.W.DEV 1 CAP INH DAILY copd Reason to Stop at ADM:TRC NEBS ORDERS Vitamin E (Dl,Tocopheryl Acet) (Vitamin E) 400 UNIT CAPSULE 1 TAB PO DAILY SUPPLEMENT (Reported) Review of Systems Review of Systems Constitutional: Reports: chills, fever, weakness. Cardiovascular: Denies: chest pain. Respiratory: Reports: cough, hemoptysis, short of breath, sputum production, wheezing. GI: Denies: abdominal pain, diarrhea, melena. Past History Travel History Traveled to [place] past 21 day No Medical History Neurological: meningitis (viral in 2009) EENT: cataracts (on right with IOL), hearing loss Cardiovascular: AFIB, CAD (s/p MS), hypertension, hyperlipidemia, MS BLOCKED ARTERY atrial fibrillation PHARMACEUTICAL CONVERSION WITH TIKOSYN Respiratory: COPD, pneumonia, 2L N/C O2 PRN Gastrointestinal: GERD, irritable bowel syndrome, ULCERATIVE COLITIS Hepatic: NONE Renal: NONE Musculoskeletal: fibromyalgia, osteoarthritis Psychiatric: anxiety, depression, PTSD fibromyalgia Endocrine: hypothyroidism Blood Disorders: anemia Cancer(s): SKIN CA (skin cancer) 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 Other Medical Hx: Irritable bowel syndrome viral meningitis [id number] hypothyroidism right cataract extraction with IOL implant depression arthritis HTN (HYPERTENSION) (401.9 | I10) CAD s/p MS COPD tonsillectomy GERD discoid lupus Pneumonia miscarriage in 1990 appendectomy ulcerative colitis eczema surgical repair of hiatal hernia skin cancer Atrial Fibrillation Surgical History Surgical History: appendectomy, surgical repair of hiatal hernia tonsillectomy Family History Relations & Conditions If Any: MOTHER FH: COPD (chronic obstructive pulmonary disease) FH: heart disease FATHER Alzheimer's disease Psychosocial History Where Do You Live? Home Who Do You Live With? child Services at Home: Oxygen Primary Language: [place] Smoking Status: Former Smoker ETOH Use: denies use Illicit Drug Use: denies illicit drug use Functional Ability ADLs Independent: dressing, eating, toileting, bathing. Ambulation: independent IADLs Independent: shopping, housework, finances, food prep, telephone, transportation , medication admin. Exam & Diagnostic Data Last 24 Hrs of Vital Signs/I&O Vital Signs Date Time Temp Pulse Resp B/P B/P Pulse O2 O2 Flow FiO2 Mean Ox Delivery Rate 01/27 0759 98.1 76 16 140/80 97 Nasal 2.0L Cannula 01/27 0505 Nasal 2.0L Cannula 01/27 0050 98.6 72 20 110/60 98 Nasal 2.0L Cannula 01/27 0000 Nasal 2.0L Cannula 01/26 1918 82 130/60 / 1709 99 Nasal 2.0L Cannula 01/26 1600 98 Nasal 2.0L Cannula 01/26 1530 98.3 68 18 118/62 98 Nasal 2.0L Cannula 01/26 0942 Nasal 2.0L Cannula Intake & Output 01/27 1600 01/27 0800 05/ 0000 Intake Total 100 640 Output Total Balance 100 640 Intake, Oral 100 640 Oxygen saturation 2 L 97% exam for chest shows scattered wheezing cardiac exam shows an irregular rhythm abdominal exam is soft of the bowel sounds are diminished is slightly distended there is no lower extremity edema Last 48 Hrs of Labs/Wan: Laboratory Tests 01/27/17 0744: CBC w Diff Pending, WBC Pending, RBC Pending, Hgb Pending, Hct Pending, MCV Pending, MCH Pending, RDW Pending, Plt Count Pending, MPV Pending, PUBS MCHC Pending 01/27/17 0650: Sodium Pending, Potassium Pending, Chloride Pending, Carbon Dioxide Pending, Anion Gap Pending, BUN Pending, Creatinine Pending, BUN/Creatinine Ratio Pending , Magnesium Pending 01/26/17 0610: Anion Gap 11, Estimated GFR > 60, BUN/Creatinine Ratio 16.7, Magnesium 1.8, Troponin I 0.03, CBC w Diff MAN DIFF ORDERED, RBC 3.16 L, MCV 91.0, MCH 30.0, RDW 15.0 H, MPV 7.1 L, Gran % 97.1 H, Lymphocytes % 1.2 L, Monocytes % 1.7, Eosinophils % 0, Basophils % 0 L, Absolute Granulocytes 37.0 H, Absolute Lymphocytes 0.5 L, Absolute Monocytes 0.7 H, Absolute Eosinophils 0, Absolute Basophils 0, Poikilocytosis 1+, Anisocytosis 1+, PUBS MCHC 33.0 01/26/17 0300: Urine Color YEL, Urine Clarity CLEAR, Urine pH 6.0, Ur Specific [place] 1.015, Urine Protein TRACE H, Urine Ketones NEG, Urine Nitrite NEG, Urine Bilirubin NEG, Urine Urobilinogen 0.2, Ur Leukocyte Esterase NEG, Ur Microscopic SEDIMENT EXAMINED, Urine WBC RARE, Ur Epithelial Cells RARE, Urine Bacteria RARE H, Urine Hemoglobin NEG, Urine Glucose 100 H 01/26/17 0115: Troponin I 0.04 01/25/17 1842: Anion Gap 11, Estimated GFR > 60, BUN/Creatinine Ratio 15.7, Glucose 93, Lactic Acid 0.8, Calcium 9.1, Total Bilirubin 0.4, AST 29, ALT 46, Alkaline Phosphatase 74, Troponin I 0.05, Total Protein 6.0 L, Albumin 3.8, Globulin 2.2, Albumin/ Globulin Ratio 1.7, CBC w Diff MAN DIFF ORDERED, RBC 3.40 L, MCV 91.0, MCH 30.0 , RDW 14.7 H, MPV 6.7 L, Gran % 89.2 H, Lymphocytes % 2.2 L, Monocytes % 8.5 , Eosinophils % 0.1, Basophils % 0 L, Absolute Granulocytes 26.1 H, Segmented Neutrophils 79 H, Band Neutrophils 6 H, Absolute Lymphocytes 0.6 L, Lymphocytes 5 L, Monocytes 9, Absolute Monocytes 2.5 H, Absolute Eosinophils 0 , Basophils 1, Absolute Basophils 0, Platelet Estimate INCREASED, Polychromasia 1+, Hypochromic-Microcytic 2+, Anisocytosis 1+, Schistocytes 1+, PUBS MCHC 33.0 Microbiology 01/26 300 URINE ROUT: Legionella Antigen - COMP 01/26 300 URINE ROUT: Streptococcus pneumoniae Antigen (M - COMP 01/250 NASOPHARYN: Influenza Virus A & B Rapid Smear - COMP Assessment/Plan Impression/Plan: 67-year-old with advanced COPD admitted following colonoscopy with increased shortness breath bronchospasm and marked leukocytosis with left shift. Concern is raised over alternative possibilities including complications of her procedure given her white count of 38,000 and elevated temperature Recommendations: Recommend CT scan chest abdomen and pelvis to exclude possible perforation. Continue steroids and antibiotics nebs and oxygen. Fully culture. Consult Acknowledgment - Thank you for your consult request."
[2017-01-27 10:27] LABS: WHITE BLOOD CELL COUNT 40.1 /CUMM (4.8-10.8)
--- NOTE | 2017-01-27 11:03 | CT SCAN REPORT ---
EXAMINATION: CT ABDOMEN AND PELVIS WITHOUT CONTRAST CLINICAL INFORMATION: Status post colonoscopy 2 days previously with leukocytosis and abdominal pain COMPARISON: CT abdomen pelvis dated 07/09/2016 TECHNIQUE: Multidetector volumetric imaging was performed from the superior aspect of the liver through the pubic symphysis. Sagittal and coronal reformatted images were obtained on the technologist's workstation. DLP: 226 mGy-cm FINDINGS: LUNG BASES: There is small amount of subsegmental atelectasis in the posterior costophrenic sulcus of the right lung base. There is calcification in the region of the mitral annulus. LIVER, GALLBLADDER, AND BILIARY TREE: The liver is normal in size, shape, and attenuation. No focal hepatic lesion or biliary ductal dilatation is present. The gallbladder is unremarkable with no evidence of radiopaque gallstones, gallbladder wall thickening, or obvious pericholecystic inflammatory changes. PANCREAS: The pancreas is normal in appearance SPLEEN: The spleen is small and unchanged in size and attenuation with no focal findings. ADRENAL GLANDS: Normal KIDNEYS AND URETERS: The kidneys show no acute findings. There are several cortical cysts in both kidneys with no significant change in size or appearance compared to prior. There is a 0.7 cm hyperdense cyst at the medial upper pole cortex of the left kidney unchanged. No intrarenal calculi are seen. There is no hydronephrosis or hydroureter BLADDER: The bladder is distended with no wall thickening, mass or stone. Calcifications along the periphery are similar to the 2016 study and are likely phleboliths. GASTROINTESTINAL TRACT: There is no evidence for large or small bowel obstruction or acute inflammation. No intraperitoneal free air is identified. There is moderate stool throughout the colon. Appendix is not identified. There is sigmoid diverticulosis. There are no CT findings of acute appendicitis or diverticulitis. There are surgical clips in the right lower quadrant and right pelvis. No free fluid or loculated fluid collection identified ABDOMINAL WALL: Small focus of increased attenuation in the subcutaneous fat of the anterior abdominal wall in the midline above the umbilicus is unchanged compared to the prior CT. This may represent a small hernia containing fat. No herniation of bowel appreciated. LYMPH NODES: No bulky adenopathy is seen in the retroperitoneum or mesentery VASCULAR: There is calcification of the abdominal aorta and its branches. There is no aneurysm identified. PELVIC VISCERA: No mass is seen in the pelvis. OSSEOUS STRUCTURES: No acute bony abnormality is seen. There is extensive degenerative disc disease in the lower lumbosacral spine IMPRESSION: There is no acute abnormality seen in the abdomen pelvis CT. Specifically there is no evidence for intraperitoneal free air, obstruction or inflammation of the visualized large or small bowel. There is moderate stool throughout the colon. There is sigmoid diverticulosis. Appendix not seen. Multiple renal cysts are similar to prior study.
--- NOTE | 2017-01-27 15:01 | Cons- Cardiology ---
"General Information and HPI Consulting Request Date of Consult: 01/27/17 Requested By: ROXANNE GARLAND MD Reason for Consult: Abnormal EKG History of Present Illness: The atient is a 67-year-old female with history of hypertension, hyperlipidemia, coronary artery disease, inferior wall myocardial infarction, paroxysmal atrial fibrillation. She is followed by Dr. Naranjo and Dr. Bahena. She is currently maintained in sinus rhythm on dofetilide. Her cardiac catheterization showed 90 % stenosis of the ostial PDA which was not amenable to revascularization. Coronary arteries are otherwise patent. She is not on anticoagulation because of history of bleeding. She had a recent colonoscopy a the [facility]. On the way home from the colonoscopy, she developed fever, nausea, and chills. She was evaluated the [facility] emergency department where she was found to have leukocytosis, and evidence of pneumonia. She has been started on antibiotic therapy with ceftriaxone and doxycycline for pneumonia. The doxycycline was used in place of other agents for coverage of atypical organisms because of concern about prolonged QT while on dofetilide. I consulted for abnormal EKG. On telemetry monitoring, she was noted to have an episode of nonsustained ventricular tachycardias morning. She denies any current cardiac symptoms. No chest pain. No palpitations. No syncope. No lightheadedness or dizziness. No nausea or vomiting. Allergies/Medications Allergies: Coded Allergies: menotropins (HIVES FROM PERGONAL 11/15/15) Home Med List: Acetaminophen (Arthritis Pain Reliever) 650 MG TABLET.ER 2 TAB PO PRN PAIN ( Reported) Albuterol Sulfate 2.5 MG/3 ML (0.083 %) VIAL.NEB 1 Vial INH/DANIKA 4XDAILY PRN RESPIRATORY (Reported) Alprazolam 0.5 MG TABLET 1 TAB PO DAILY ANXIETY (Reported) Arformoterol Tartrate (Brovana) 15 MCG/2 ML VIAL.NEB 1 VIAL INH DAILY RESPIRATORY (Reported) Ascorbic Acid (Vitamin C) 500 MG CAPSULE.ER 1 CAP PO DAILY SUPPLEMENT ( Reported) Budesonide (Pulmicort) 0.5 MG/2 ML AMPUL.NEB 1 Vial INH/DANIKA BID COPD ( Reported) Bupropion HCl (Bupropion HCl Sr) 200 MG TABLET.ER 1 TAB PO QAM DEPRESSION ( Reported) Calcium Carbonate/Vitamin D3 (Caltrate 600 + D Tablet) 1 EACH TABLET 1 TAB PO DAILY SUPPLEMENT (Reported) Cholecalciferol (Vitamin D3) (Vitamin D3) 400 UNIT TABLET 1 TAB PO DAILY SUPPLEMENT (Reported) Diltiazem HCl (Diltiazem ER) 180 MG CAPSULE.ER 1 TAB PO DAILY heart rate ( Reported) Docusate Sodium (Colace) 100 MG CAPSULE 2 CAP PO QPM STOOL SOFTENER (Reported ) Dofetilide (Tikosyn) 250 MCG CAPSULE 1 CAP PO BID ANTIARRHYTHMIC Ezetimibe (Zetia) 10 MG TABLET 1 TAB PO DAILY CHOLESTEROL (Reported) Ferrous Sulfate 325 MG (65 MG IRON) TABLET 1 TAB PO DAILY SUPPLEMENT ( Reported) Fluticasone/Salmeterol (Advair 250-50 Diskus) 250 MCG-50 MCG/DOSE BLST.W.DEV 1 PUF INH BID BREATHING PROBLEMS (Reported) Folic Acid 1 MG TABLET 1 TAB PO DAILY SUPPLEMENT (Reported) Furosemide (Lasix) 40 MG TABLET 1 TAB PO BID WATER PILL (Reported) Guaifenesin (Mucinex) 600 MG TAB.ER.12H 1 TAB PO DAILY EXPECTORANT (Reported) Levothyroxine Sodium 100 MCG TABLET 1 TAB PO DAILY AC THYROID (Reported) Losartan Potassium 50 MG TABLET 1 TAB PO DAILY BP (Reported) Montelukast Sodium 10 MG TABLET 1 TAB PO DAILY COPD (Reported) Nitroglycerin (Nitro-Dur) 0.6 MG/HOUR PATCH.TD24 1 PATCH TOP DAILY HEART ( Reported) [place]-3 Fatty Acids/Fish Oil (Fish Oil 1,000 MG Capsule) 340 MG-1,000 MG CAPSULE 2 CAP PO DAILY SUPPLEMENT (Reported) Omeprazole 40 MG CAPSULE.DR 1 CAP PO DAILY GI (Reported) Potassium Chloride 20 MEQ TAB.ER.PRT 1 TAB PO DAILY SUPPLEMENT (Reported) Pravastatin Sodium (Pravachol) 40 MG TABLET 1 TAB PO QPM CHOLESTEROL ( Reported) Roflumilast (Daliresp) 500 MCG TABLET 1 TAB PO DAILY COPD (Reported) Sertraline HCl (Zoloft) 100 MG TABLET 2 TAB PO DAILY DEPRESSION (Reported) Sucralfate 1 GM TABLET 1 TAB PO 4 TIMES/DAY PUD (Reported) Tiotropium [place] (Spiriva) 18 MCG CAP.W.DEV 1 CAP INH DAILY copd Reason to Stop at ADM:TRC NEBS ORDERS Vitamin E (Dl,Tocopheryl Acet) (Vitamin E) 400 UNIT CAPSULE 1 TAB PO DAILY SUPPLEMENT (Reported) Current Medications: Current Medications Sig/Lana Start time Last Medication Dose Route Stop Time Status Admin Acetaminophen 650 MG Q6P PRN 01/25 2215 AC PO Acetaminophen/ 1 TAB Q8P PRN 01/26 0130 AC 01/27 Hydrocodone Bitart PO 0617 Albuterol Sulfate 3 ML EVERY 4 HRS/AWAKE 01/26 0815 AC 01/27 INH 1300 Alprazolam 0.5 MG DAILY 01/26 1000 AC 01/27 PO 02/02 0959 0911 Arformoterol Tartrate 15 MCG DAILY 01/26 1000 AC 01/27 INH 0930 Ascorbic Acid 500 MG DAILY 01/26 1000 AC 01/27 PO 1004 Budesonide 0.5 MG BID 01/26 1000 AC 01/27 INH 0921 Bupropion HCl 200 MG DAILY 01/26 1000 AC 01/27 PO 1004 Ceftriaxone Sodium 1,000 MG 2200 01/26 2200 AC 01/26 IV 2207 Diltiazem HCl 180 MG DAILY 01/26 1000 AC 01/27 PO 1001 Dofetilide 250 MCG BID 01/26 0015 AC 01/27 PO 1003 Doxycycline Hyclate 100 MG Q12 01/26 2200 AC 01/27 Sodium Chloride 100 ML IV 1059 Enoxaparin Sodium 40 MG DAILY 01/26 1000 AC 01/27 SC 1002 Ezetimibe 10 MG DAILY 01/26 1000 AC 01/27 PO 1004 Ferrous Sulfate 325 MG DAILY 01/26 1000 AC 01/27 PO 1002 Folic Acid 1 MG DAILY 01/26 1000 AC 01/27 PO 1002 Furosemide 40 MG BID 01/26 2200 AC 01/27 PO 1002 Guaifenesin 600 MG DAILY 01/26 1000 AC 01/27 PO 1003 Levothyroxine Sodium 0.1 MG DAILY AC 01/26 0700 AC 05 PO 0615 Losartan Potassium 50 MG DAILY 01/26 1743 AC 01/27 PO 1001 Magnesium Oxide 400 MG ONE ONE 01/26 2045 DC 01/26 PO 01/26 2046 220 Melatonin 3 MG AT BEDTIME PRN 01/26 1945 AC 01/26 PO 2217 Methylprednisolone 40 MG Q8 01/26 0600 AC 05 IV 1448 Montelukast Sodium 10 MG AT BEDTIME 01/26 2200 AC 01/26 PO 2217 Nitroglycerin 0.6 MG DAILY 01/26 1000 AC 01/27 TOP 1003 Omeprazole 40 MG DAILY AC 01/26 0700 AC 01/27 PO 0615 Patient Medication 1 UNIT ONE NR 01/26 1815 [place] Teaching ED 01/26 1830 Patient Medication 1 UNIT ONE NR 01/26 1815 IL Teaching ED 01/26 1830 Potassium Chloride 20 MEQ DAILY 01/26 1000 AC 01/27 PO 1002 Pravastatin Sodium 40 MG AT BEDTIME 01/26 2200 AC 01/26 PO 2207 Roflumilast 500 MCG DAILY 01/26 1000 AC 01/27 PO 1010 Sertraline HCl 200 MG DAILY 01/26 1000 AC 01/27 PO 1004 Sucralfate 1,000 MG 4 TIMES/DAY 01/25 2200 AC 01/27 PO 1311 Tiotropium [place] 1 PUF DAILY 01/26 1000 AC 01/27 INH 1003 Trimethobenzamide HCl 200 MG TIDPRN PRN 01/26 0230 AC IM Review of Systems Review of Systems: No rash. No tremor. No melena. All other systems were reviewed, and were noted to be negative. Past History Travel History Traveled to [place] past 21 day No Medical History Neurological: meningitis (viral in 2008) EENT: cataracts (on right with IOL), hearing loss Cardiovascular: AFIB, CAD (s/p CA), hypertension, hyperlipidemia, CA BLOCKED ARTERY atrial fibrillation PHARMACEUTICAL CONVERSION WITH TIKOSYN Respiratory: COPD, pneumonia, 2L N/C O2 PRN Gastrointestinal: GERD, irritable bowel syndrome, ULCERATIVE COLITIS Hepatic: NONE Renal: NONE Musculoskeletal: fibromyalgia, osteoarthritis Psychiatric: anxiety, depression, PTSD fibromyalgia Endocrine: hypothyroidism Blood Disorders: anemia Cancer(s): SKIN CA (skin cancer) 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 Other Medical Hx: Irritable bowel syndrome viral meningitis [id number] hypothyroidism right cataract extraction with IOL implant depression arthritis HTN (HYPERTENSION) (401.9 | I10) CAD s/p CA COPD tonsillectomy GERD discoid lupus Pneumonia miscarriage in 1990 appendectomy ulcerative colitis eczema surgical repair of hiatal hernia skin cancer Atrial Fibrillation Surgical History Surgical History: appendectomy, surgical repair of hiatal hernia tonsillectomy Family History Relations & Conditions If Any: MOTHER FH: COPD (chronic obstructive pulmonary disease) FH: heart disease FATHER Alzheimer's disease Psychosocial History Where Do You Live? Home Who Do You Live With? child Services at Home: Oxygen Primary Language: Upper Sorbian Smoking Status: Former Smoker ETOH Use: denies use Illicit Drug Use: denies illicit drug use Functional Ability ADLs Independent: dressing, eating, toileting, bathing. Ambulation: independent IADLs Independent: shopping, housework, finances, food prep, telephone, transportation , medication admin. Exam & Diagnostic Data Vital Signs and I&O Vital Signs Date Time Temp Pulse Resp B/P B/P Pulse O2 O2 Flow FiO2 Mean Ox Delivery Rate 01/27 1001 101 140/80 01/27 0940 96 Nasal 2.0L Cannula 01/27 0759 98.1 76 16 140/80 97 Nasal 2.0L Cannula 01/27 0505 Nasal 2.0L Cannula 01/27 0050 98.6 72 20 110/60 98 Nasal 2.0L Cannula 01/27 0000 Nasal 2.0L Cannula 01/26 1918 82 130/60 01/26 1709 99 Nasal 2.0L Cannula 01/26 1600 98 Nasal 2.0L Cannula 01/26 1530 98.3 68 18 118/62 98 Nasal 2.0L Cannula Intake & Output 01/27 1600 01/27 0800 01/27 0000 01/26 1600 01/26 0800 05/ 0000 Intake Total 118 390 5430 200 1360 Output Total 1000 Balance 100 640 411 494 5285 Intake, IV 300 1000 Intake, Oral 100 640 840 200 360 Output, Urine 1000 Patient 106 lb 106 lb Weight Weight Reported by Patient Measurement Method Physical Exam: Gen: The patient is in no acute distress HEENT: Normal nose, ears, and oropharynx. Pupils equal bilaterally. Conjunctiva normal. Neck: Supple with no JVD, no masses, and no thyromegaly Lungs: Clear to auscultation with normal respiratory effort Heart: RRR, S1, S2, no murmurs. No peripheral edema, 2+ pulses in the lower extremities bilaterally Abdomen: Soft, nontender, no masses. No hepatomegaly. No splenomegaly Extremities: No clubbing or cyanosis. Normal muscle strength in the upper and lower extremities Skin: Normal skin turgor with no skin ulcers or lesions noted. Neuro: Cranial nerves intact. Sensation intact Psych: Alert and oriented 3 with appropriate affect Labs/Wan Results: Laboratory Tests 01/27 01/27 0744 0650 Chemistry Sodium (137 - 145 mmol/L) 138 Potassium (3.5 - 5.1 mmol/L) 4.6 Chloride (98 - 107 mmol/L) 103 Carbon Dioxide (22 - 30 mmol/L) 26 Anion Gap (5 - 16) 9 BUN (7 - 17 mg/dL) 11 Creatinine (0.5 - 1.0 mg/dL) 0.6 Estimated GFR (>60 ml/min) > 60 BUN/Creatinine Ratio (7 - 25 %) 18.3 Magnesium (1.6 - 2.3 mg/dL) 2.0 Hematology CBC w Diff NO MAN DIFF REQ WBC (4.8 - 10.8 /CUMM) 40.1 *H RBC (4.20 - 5.40 /CUMM) 3.26 L Hgb (12.0 - 16.0 G/DL) 9.9 L Hct (37 - 47 %) 30.0 L MCV (81.0 - 99.0 FL) 91.8 MCH (27.0 - 31.0 PG) 30.2 RDW (11.5 - 14.5 %) 15.1 H Plt Count (130 - 400 /CUMM) 517 H MPV (7.4 - 10.4 FL) 7.1 L Gran % (42.2 - 75.2 %) 96.4 H Lymphocytes % (20.5 - 51.1 %) 1.6 L Monocytes % (1.7 - 9.3 %) 2.0 Eosinophils % (0 - 5 %) 0 Basophils % (0.0 - 2.0 %) 0 L Absolute Granulocytes (1.4 - 6.5 /CUMM) 38.7 H Absolute Lymphocytes (1.2 - 3.4 /CUMM) 0.7 L Absolute Monocytes (0.10 - 0.60 /CUMM) 0.8 H Absolute Eosinophils (0.0 - 0.7 /CUMM) 0 Absolute Basophils (0.0 - 0.2 /CUMM) 0 PUBS MCHC (33.0 - 37.0 G/DL) 32.9 L 05/06 05/06 0610 0300 Chemistry Sodium (137 - 145 mmol/L) 137 Potassium (3.5 - 5.1 mmol/L) 4.2 Chloride (98 - 107 mmol/L) 103 Carbon Dioxide (22 - 30 mmol/L) 23 Anion Gap (5 - 16) 11 BUN (7 - 17 mg/dL) 10 Creatinine (0.5 - 1.0 mg/dL) 0.6 Estimated GFR (>60 ml/min) > 60 BUN/Creatinine Ratio (7 - 25 %) 16.7 Magnesium (1.6 - 2.3 mg/dL) 1.8 Troponin I (< 0.11 ng/ml) 0.03 Hematology CBC w Diff MAN DIFF ORDERED WBC (4.8 - 10.8 /CUMM) 38.1 *H RBC (4.20 - 5.40 /CUMM) 3.16 L Hgb (12.0 - 16.0 G/DL) 9.5 L Hct (37 - 47 %) 28.8 L MCV (81.0 - 99.0 FL) 91.0 MCH (27.0 - 31.0 PG) 30.0 RDW (11.5 - 14.5 %) 15.0 H Plt Count (130 - 400 /CUMM) 507 H MPV (7.4 - 10.4 FL) 7.1 L Gran % (42.2 - 75.2 %) 97.1 H Lymphocytes % (20.5 - 51.1 %) 1.2 L Monocytes % (1.7 - 9.3 %) 1.7 Eosinophils % (0 - 5 %) 0 Basophils % (0.0 - 2.0 %) 0 L Absolute Granulocytes (1.4 - 6.5 /CUMM) 37.0 H Absolute Lymphocytes (1.2 - 3.4 /CUMM) 0.5 L Absolute Monocytes (0.10 - 0.60 /CUMM) 0.7 H Absolute Eosinophils (0.0 - 0.7 /CUMM) 0 Absolute Basophils (0.0 - 0.2 /CUMM) 0 Poikilocytosis 1+ Anisocytosis 1+ PUBS MCHC (33.0 - 37.0 G/DL) 33.0 Urines Urine Color (YEL,AMB,STR) YEL Urine Clarity (CLEAR) CLEAR Urine pH (5.0 - 8.0) 6.0 Ur Specific [place] (1.001 - 1.035) 1.015 Urine Protein (NEG,<30 MG/DL) TRACE H Urine Ketones (NEG) NEG Urine Nitrite (NEG) NEG Urine Bilirubin (NEG) NEG Urine Urobilinogen (0.1 - 1.0 EU/dl) 0.2 Ur Leukocyte Esterase (NEG) NEG Ur Microscopic SEDIMENT EXAMINED Urine WBC (0 - 2 /HPF) RARE Ur Epithelial Cells (NONE,FEW) RARE Urine Bacteria (NEG/NONE) RARE H Urine Hemoglobin (NEG) NEG Urine Glucose (N MG/DL) 100 H 01/26 01/25 0115 1842 Chemistry Sodium (137 - 145 mmol/L) 134 L Potassium (3.5 - 5.1 mmol/L) 3.2 L Chloride (98 - 107 mmol/L) 96 L Carbon Dioxide (22 - 30 mmol/L) 27 Anion Gap (5 - 16) 11 BUN (7 - 17 mg/dL) 11 Creatinine (0.5 - 1.0 mg/dL) 0.7 Estimated GFR (>60 ml/min) > 60 BUN/Creatinine Ratio (7 - 25 %) 15.7 Glucose (65 - 99 mg/dL) 93 Lactic Acid (0.7 - 2.1 mmol/L) 0.8 Calcium (8.4 - 10.2 mg/dL) 9.1 Total Bilirubin (0.2 - 1.3 mg/dL) 0.4 AST (14 - 36 U/L) 29 ALT (9 - 52 U/L) 46 Alkaline Phosphatase (<127 U/L) 74 Troponin I (< 0.11 ng/ml) 0.04 0.05 Total Protein (6.3 - 8.2 g/dL) 6.0 L Albumin (3.5 - 5.0 g/dL) 3.8 Globulin (1.9 - 4.2 gm/dL) 2.2 Albumin/Globulin Ratio (1.1 - 2.2 %) 1.7 Hematology CBC w Diff MAN DIFF ORDERED WBC (4.8 - 10.8 /CUMM) 29.2 H RBC (4.20 - 5.40 /CUMM) 3.40 L Hgb (12.0 - 16.0 G/DL) 10.2 L Hct (37 - 47 %) 30.9 L MCV (81.0 - 99.0 FL) 91.0 MCH (27.0 - 31.0 PG) 30.0 RDW (11.5 - 14.5 %) 14.7 H Plt Count (130 - 400 /CUMM) 568 H MPV (7.4 - 10.4 FL) 6.7 L Gran % (42.2 - 75.2 %) 89.2 H Lymphocytes % (20.5 - 51.1 %) 2.2 L Monocytes % (1.7 - 9.3 %) 8.5 Eosinophils % (0 - 5 %) 0.1 Basophils % (0.0 - 2.0 %) 0 L Absolute Granulocytes (1.4 - 6.5 /CUMM) 26.1 H Segmented Neutrophils (42.2 - 75.2 %) 79 H Band Neutrophils (0.0 - 5.0 %) 6 H Absolute Lymphocytes (1.2 - 3.4 /CUMM) 0.6 L Lymphocytes (20.5 - 51.1 %) 5 L Monocytes (1.7 - 9.3 %) 9 Absolute Monocytes (0.10 - 0.60 /CUMM) 2.5 H Absolute Eosinophils (0.0 - 0.7 /CUMM) 0 Basophils (0.0 - 2.0 %) 1 Absolute Basophils (0.0 - 0.2 /CUMM) 0 Platelet Estimate (ADEQUATE) INCREASED Polychromasia 1+ Hypochromic-Microcytic 2+ Anisocytosis 1+ Schistocytes 1+ PUBS MCHC (33.0 - 37.0 G/DL) 33.0 Diagnostic Data EKG Results EKG tracing is independently reviewed, and reveals normal sinus rhythm at 80. QTC 462 Tele monitoring reveals sinus rhythm with episode of nonsustained ventricular tachycardias morning CXR Results Interval development of patchy airspace opacities within the left lung apex. A subtle opacity is also visualized within the right upper lobe. This could reflect infection. Recommend follow-up PA and lateral chest x-ray following treatment to ensure resolution and to exclude underlying malignancy given the patient's clinical risk factors. Radiographic findings suggestive of underlying COPD. Other Results CT scan of the abdomen and pelvis: There is no acute abnormality seen in the abdomen pelvis CT. Specifically there is no evidence for intraperitoneal free air, obstruction or inflammation of the visualized large or small bowel. There is moderate stool throughout the colon. There is sigmoid diverticulosis. Appendix not seen. Multiple renal cysts are similar to prior study. Echocardiogram 11/11/15: 1. Normal EF of 75%. 2. Mild right ventricular enlargement. 3. Moderate left atrial enlargment. 4. Trace mitral regurgitation. 5. Mild aortic regurgitation. 6. Trace to mild tricuspid regurgitation. 7. Trace pulmonic regurgitation. Assessment/Plan Assessment/Plan Assessment: 1. Community acquired pneumonia 2. Coronary artery disease 3. Paroxysmal atrial fibrillation, maintained in sinus rhythm on dofetilide 4. Nonspecific ST-T abnormality, ruled out for mitral infarction 5. Nonsustained tachycardia Plan: * Continue dofetilide for maintenance of sinus rhythm * Continue other cardiac medications * Monitor on telemetry for further episodes of ventricular tachycardia * Echocardiogram to check left ventricular function given nonsustained ventricular tachycardia Consult Acknowledgment - Thank you for your consult request."
[2017-01-27 16:46] VITALS: BP 138/60
[2017-01-27 22:30] VITALS: BP 152/78
--- NOTE | 2017-01-28 07:19 | PN- Housestaff ---
See Addendum Subjective Follow-up For: Community acquired pneumonia Marked leukocytosis COPD exacerbation Non-specific ST-T wave abnormality Nonsustained ventricular tachycardia Tele-Events Since Last Visit: Sinus rhythm HR 76-83 PVCs, PACs, couplet and trigeminy Subjective: No acute events overnight. Patient seen and examined this morning. Shortness of breath has improved. She continues to have productive cough. She denies chest pain or palpitations. She remains on 2 L NC. Review of Systems Constitutional: Reports: see HPI. Objective Last 24 Hrs of Vital Signs/I&O Vital Signs Date Time Temp Pulse Resp B/P B/P Pulse O2 O2 Flow FiO2 Mean Ox Delivery Rate 01/28 1026 97 Nasal 2.0L Cannula 01/28 0933 80 148/60 01/28 0800 97.7 73 22 152/78 98 05/ 0000 98 Nasal 2.0L Cannula 01/27 2230 98.2 88 22 152/78 98 Nasal 2.0L Cannula 01/27 1647 98 Nasal 2.0L Cannula 01/27 1646 98.6 74 16 138/60 97 Nasal 3.0L Cannula 01/27 1600 98 Nasal 2.0L Cannula Intake & Output 01/28 1600 01/28 0800 05/08 0000 Intake Total 480 740 Output Total 900 Balance -420 740 Intake, IV 140 Intake, Oral 480 600 Output, Urine 900 Physical Exam General Appearance: Alert, Oriented X3, No Acute Distress HEENT: Atraumatic, Mucous Membr. moist/pink Cardiovascular: Regular Rate, Normal S1, Normal S2, No Murmurs, Gallops, Rubs Lungs: Diminished Breath Sounds, No Wheezes or Crackles Abdomen: Soft, No Tenderness, Positive Bowel Sounds Extremities: No Clubbing, No Cyanosis, No Edema Current Medications: Current Medications Sig/Lana Start time Last Medication Dose Route Stop Time Status Admin Acetaminophen 650 MG Q6P PRN 01/25 2215 AC PO Acetaminophen/ 1 TAB Q8P PRN 01/26 0130 AC 01/28 Hydrocodone Bitart PO 0619 Albuterol Sulfate 3 ML EVERY 4 HRS/AWAKE 01/26 0815 AC 01/28 INH 1020 Alprazolam 0.5 MG TID PRN 01/28 0805 AC 01/28 PO 02/04 0804 0922 Alprazolam 0.25 MG ONCE ONE 01/27 2245 DC 01/27 PO 01/27 2246 2339 Alprazolam 0.5 MG DAILY 01/26 1000 DC 01/27 PO 02/02 0959 0911 Arformoterol Tartrate 15 MCG DAILY 01/26 1000 AC 01/28 INH 1023 Ascorbic Acid 500 MG DAILY 01/26 1000 AC 05 PO 0923 Budesonide 0.5 MG BID 01/26 1000 AC 01/28 INH 1022 Bupropion HCl 200 MG DAILY 01/26 1000 AC 05 PO 0924 Ceftazidime 1,000 MG IQ8 05 1600 UNVr IV Ceftriaxone Sodium 1,000 MG 2200 01/26 2200 DC 05 IV 2210 Diltiazem HCl 180 MG DAILY 01/26 1000 AC 01/28 PO 0932 Dofetilide 250 MCG BID 01/26 0015 AC 05 PO 0926 Doxycycline Hyclate 100 MG Q12 01/26 2200 AC 01/28 Sodium Chloride 100 ML IV 0922 Enoxaparin Sodium 40 MG DAILY 01/26 1000 AC 01/28 SC 0927 Ezetimibe 10 MG DAILY 01/26 1000 AC 05 PO 0924 Ferrous Sulfate 325 MG DAILY 01/26 1000 AC 01/28 PO 0923 Folic Acid 1 MG DAILY 01/26 1000 AC 01/28 PO 0923 Furosemide 40 MG BID 01/26 2200 AC 01/28 PO 0923 Guaifenesin 600 MG DAILY 01/26 1000 AC 01/28 PO 0927 Levothyroxine Sodium 0.1 MG DAILY AC 01/26 0700 AC 05 PO 0619 Losartan Potassium 50 MG DAILY 01/26 1743 AC 01/28 PO 0933 Melatonin 3 MG .STK-MED ONE 01/27 2342 DC PO 01/27 2343 Melatonin 3 MG AT BEDTIME PRN 01/26 1945 AC 01/27 PO 2341 Methylprednisolone 40 MG Q8 01/26 0600 AC 05 IV 0619 Montelukast Sodium 10 MG AT BEDTIME 01/26 2200 AC 01/27 PO 2211 Nitroglycerin 0.6 MG DAILY 01/26 1000 AC 01/28 TOP 0929 Omeprazole 40 MG DAILY AC 01/26 0700 AC 05 PO 0618 Potassium Chloride 20 MEQ DAILY 01/26 1000 AC 01/28 PO 0927 Pravastatin Sodium 40 MG AT BEDTIME 01/26 2200 AC 01/27 PO 2212 Roflumilast 500 MCG DAILY 01/26 1000 AC 01/28 PO 09 Sertraline HCl 200 MG DAILY 01/26 1000 AC 01/28 PO 0924 Sucralfate 1,000 MG 4 TIMES/DAY 01/25 2200 AC 01/28 PO 09 Tiotropium [place] 1 PUF DAILY 01/26 1000 AC 01/28 INH 0925 Trimethobenzamide HCl 200 MG TIDPRN PRN 01/26 0230 AC IM Last 24 Hrs of Lab/Wan Results Last 24 Hrs of Labs/Mics: Laboratory Tests 01/28/17 0650: Anion Gap 11, Estimated GFR > 60, BUN/Creatinine Ratio 31.7 H, CBC w Diff MAN DIFF ORDERED, RBC 3.30 L, MCV 91.4, MCH 29.9, RDW 15.2 H, MPV 7.2 L, Gran % 95.9 H, Lymphocytes % 2.1 L, Monocytes % 2.0, Eosinophils % 0, Basophils % 0 L, Absolute Granulocytes 30.5 H, Segmented Neutrophils 97 H, Absolute Lymphocytes 0.7 L, Lymphocytes 2 L, Monocytes 1 L, Absolute Monocytes 0.6, Absolute Eosinophils 0, Absolute Basophils 0, Platelet Estimate INCREASED, Poikilocytosis 1+, PUBS MCHC 32.8 L Sputum Cx (01/27/17): Gram negative rods UCx (01/26/17): NGTD Orders Radiology Findings: CT CHEST WITH IV CONTRAST: 1. Moderate centrilobular emphysema seen with interval development of dense masslike areas of consolidation in both lung apices, left greater than right. Given the short interval development (normal chest x-ray dated 12/03/2016), an infectious process is favored over malignant process. Findings are consistent with clinical suspicion of community acquired pneumonia. No obstructing endobronchial lesion is seen. Mild traction bronchiectasis is seen associated with these findings. Would recommend chest x-ray follow-up to resolution. 2. Two 0.3 cm nodular densities in the right upper lobe, new from 2013. These are of doubtful clinical significance. Given the patient's high-risk status, however, follow-up assessment in 6 months is recommended. 3. No adenopathy. 4. Enlarged pulmonary arteries, suspicious for pulmonary arterial hypertension. 5. Left renal simple cysts and hyperdense hemorrhagic or proteinaceous cyst, similar to prior study. Assessment/Plan Assessment: 67 y/o F with PMHx of COPD on 2 L NC, CAD and atrial fibrillation not on anticoagulation who is admitted for community acquired pneumonia. #Community-acquired pneumonia: On day 4 of IV antibiotics, currently ceftriaxone and doxycycline, with temperatures remaining normal and improving leukocytosis. CT Chest, performed with IV contrast to evaluate for malignancy in the setting of marked leukocytosis, with dense masslike areas of consolidation in both lung apices, left greater than right, favoring an infectious process (i.e. CAP) over pneumonia. CT Abdomen/Pelvis performed to rule out possible perforation or other complications of recent EGD/colonoscopy, given marked leukocytosis, negative for acute intraabdominal process. Sputum Cx growing GNR. Sputum Cx have grown Pseudomonas in the past. * Discontinue ceftriaxone and doxycycline. * Start ceftazidime 1 g IV Q12H. * Follow sputum Cx speciation and susceptibilities. #COPD exacerbation: Currently on 2 L oxygen which is her baseline requirement. * Continue Solumedrol 40 mg IV Q8H. * Continue ohunt-wv-nuksinqhc roflumilast 500 mcg PO daily. * Continue ekiik-hw-ildmyleiw Spiriva inhaler, Pulmbicort and Brovana nebuliizers. * TRC and nebs. * Provide supplemental oxygen as needed to keep SpO2 >92%. * Continue Mucinex. * Robitussin PRN for cough. #Non-specific T wave abnormality/Nonsustained V-tach: EKG with non-specific T wave abnormality. Mild troponin elevation to 0.05 which have downtrended. No chest pain. * Cardiology following. Appreciate their recs. * Continue to monitor on telemetry. * ECHO ordered to check left ventricular function in the setting of nonsustained V-tach. #Paroxysmal atrial fibrillation: Remains in sinus rhythm. Not on anticoagulation secondary to history of bleed. * Continue Cardizem CD 180 mg PO daily and dofetilide 250 mcg PO BID. #Dysphagia: Self-reported aspiration with thin liquids. * Formal swallow evaluation ordered. #HTN: * Resume [id number] Lasix 40 mg PO BID and losartan 50 mg PO daily. #Neck pain: Neck XR with moderate degenerative changes secondary to underlying osteoarthritis. * Vicodin PRN for pain. Diet: Heart healthy DVT PPx: Lovenox and ALPs CODE: FULL Problem List: 1. Neck pain 2. Aspiration of liquid 3. Osteoarthritis 4. Leukocytosis 5. CAP (community acquired pneumonia) 6. COPD (chronic obstructive pulmonary disease) 7. Elevated troponin 8. Abnormal EKG 9. Nonsustained ventricular tachycardia Pain Ratin Pain Location: N/A Pain Goal: Remain pain free Pain Plan: Vicodin 1 tab PO Q8H PRN for moderate pain (scale 4-6) Tylenol 650 mg PO Q6H PRN for mild pain (scale 1-3) Tomorrow's Labs & Rationales: CBC to monitor WBC count in the setting of active infection and marked leukocytosis BMP to monitor lytes and kidney function given elevated BUN
--- NOTE | 2017-01-28 07:58 | PN- Pulmonary ---
Subjective HPI/Critical Care Issues: Still feels short of breath she denies chest pain. CT abdomen showed no acute findings. Objective Current Medications: Current Medications Sig/Lana Start time Last Medication Dose Route Stop Time Status Admin Acetaminophen 650 MG Q6P PRN 01/25 2215 AC PO Acetaminophen/ 1 TAB Q8P PRN 01/26 0130 AC 01/28 Hydrocodone Bitart PO 0619 Albuterol Sulfate 3 ML EVERY 4 HRS/AWAKE 01/26 0815 AC 01/28 INH 0629 Alprazolam 0.25 MG ONCE ONE 01/27 2245 DC 01/27 PO 01/27 2246 2339 Alprazolam 0.5 MG DAILY 01/26 1000 AC 01/27 PO 02/02 0959 0911 Arformoterol Tartrate 15 MCG DAILY 01/26 1000 AC 01/27 INH 0930 Ascorbic Acid 500 MG DAILY 01/26 1000 AC 01/27 PO 1004 Budesonide 0.5 MG BID 01/26 1000 AC 01/27 INH 1644 Bupropion HCl 200 MG DAILY 01/26 1000 AC 01/27 PO 1004 Ceftriaxone Sodium 1,000 MG 2200 01/26 2200 AC 05 IV 2210 Diltiazem HCl 180 MG DAILY 01/26 1000 AC 01/27 PO 1001 Dofetilide 250 MCG BID 01/26 0015 AC 01/27 PO 2211 Doxycycline Hyclate 100 MG Q12 01/26 2200 AC 01/27 Sodium Chloride 100 ML IV 2210 Enoxaparin Sodium 40 MG DAILY 01/26 1000 AC 01/27 SC 1002 Ezetimibe 10 MG DAILY 01/26 1000 AC 01/27 PO 1004 Ferrous Sulfate 325 MG DAILY 01/26 1000 AC 01/27 PO 1002 Folic Acid 1 MG DAILY 01/26 1000 AC 01/27 PO 1002 Furosemide 40 MG BID 01/26 2200 AC 01/27 PO 2211 Guaifenesin 600 MG DAILY 01/26 1000 AC 01/27 PO 1003 Levothyroxine Sodium 0.1 MG DAILY AC 01/26 0700 AC 01/28 PO 0619 Losartan Potassium 50 MG DAILY 01/26 1743 AC 01/27 PO 1001 Melatonin 3 MG .STK-MED ONE 01/27 2342 DC PO 01/27 2343 Melatonin 3 MG AT BEDTIME PRN 01/26 1945 AC 01/27 PO 2341 Methylprednisolone 40 MG Q8 01/26 0600 AC 01/28 IV 0619 Montelukast Sodium 10 MG AT BEDTIME 01/26 2200 AC 01/27 PO 2211 Nitroglycerin 0.6 MG DAILY 01/26 1000 AC 01/27 TOP 1003 Omeprazole 40 MG DAILY AC 01/26 0700 AC 01/28 PO 0618 Potassium Chloride 20 MEQ DAILY 01/26 1000 AC 01/27 PO 1002 Pravastatin Sodium 40 MG AT BEDTIME 01/26 2200 AC 01/27 PO 2212 Roflumilast 500 MCG DAILY 01/26 1000 AC 01/27 PO 1010 Sertraline HCl 200 MG DAILY 01/26 1000 AC 01/27 PO 1004 Sucralfate 1,000 MG 4 TIMES/DAY 01/25 220 AC 01/27 PO 2213 Tiotropium [place] 1 PUF DAILY 01/26 1000 AC 01/27 INH 1003 Trimethobenzamide HCl 200 MG TIDPRN PRN 01/26 0230 AC IM Vital Signs & I&O Last 24 Hrs of Vitals and I&O: Vital Signs Date Time Temp Pulse Resp B/P B/P Pulse O2 O2 Flow FiO2 Mean Ox Delivery Rate 01/28 0000 98 Nasal 2.0L Cannula 01/27 2230 98.2 88 22 152/78 98 Nasal 2.0L Cannula 01/27 1647 98 Nasal 2.0L Cannula 01/27 1646 98.6 74 16 138/60 97 Nasal 3.0L Cannula 01/27 1600 98 Nasal 2.0L Cannula 01/27 1001 101 140/80 01/27 0940 96 Nasal 2.0L Cannula 01/27 0800 97 Nasal 2.0L Cannula 01/27 0759 98.1 76 16 140/80 97 Nasal 2.0L Cannula Intake & Output 01/28 0800 05/08 0000 01/27 1600 Intake Total 740 640 Output Total Balance 740 640 Intake, IV 140 Intake, Oral 600 640 Patient 106 lb Weight Oxygen saturation 2 L 98% exam for chest shows diminished breath sounds there are no wheezes or crackles cardiac exam shows normal S1 and S2 without murmurs abdomen is soft nontender Impression/Plan Impression/Plan Impression/Plan: 67-year-old with advanced COPD admitted following colonoscopy with increased shortness breath bronchospasm and marked leukocytosis with left shift. Chest x- ray shows only minor abnormalities. Recommendations: Recommend CT scan chest . Continue steroids and antibiotics nebs Taper FiO2. Fully culture.
[2017-01-28 08:00] VITALS: BP 152/78
[2017-01-28 08:04] LABS: ABSOLUTE BASOPHIL COUNT 0 /CUMM (0.0-0.2); ABSOLUTE EOSINOPHIL COUNT 0 /CUMM (0.0-0.7); BASOPHIL % 0 % (0.0-2.0); EOSINOPHIL % 0 % (0-5); HEMATOCRIT 30.2 % (37-47); MEAN CORPUSCULAR HGB 29.9 PG (27.0-31.0)
[2017-01-28 08:21] LABS: ABSOLUTE GRANULOCYTE CT 30.5 /CUMM (1.4-6.5); ABSOLUTE LYMPH COUNT 0.7 /CUMM (1.2-3.4); ABSOLUTE MONOCYTE COUNT 0.6 /CUMM (0.10-0.60); GRANULOCYTE % 95.9 % (42.2-75.2); MEAN CORPUSCULAR HGB CONC 32.8 G/DL (33.0-37.0); MEAN CORPUSCULAR VOLUME 91.4 FL (81.0-99.0); MEAN PLATELET VOLUME 7.2 FL (7.4-10.4); PLATELET COUNT 541 /CUMM (130-400); RBC DISTRIBUTION WIDTH 15.2 % (11.5-14.5)
[2017-01-28 08:34] LABS: WHITE BLOOD CELL COUNT 31.8 /CUMM (4.8-10.8)
--- NOTE | 2017-01-28 14:30 | CT SCAN REPORT ---
EXAMINATION: CT CHEST WITH CONTRAST CLINICAL INFORMATION: Marked leukocytosis, suspected community acquired pneumonia. Advanced COPD. Symptoms started after colonoscopy. Rule out acute process, including infection. COMPARISON: A scan of the abdomen and pelvis dated 01/27/2017. Chest x-ray dated 01/25/2017 and 12/03/2016. CT scan of the chest dated 06/18/2014. TECHNIQUE: Multidetector volumetric CT imaging of the chest was obtained after the administration of 95 mL of intravenous Optiray 320. Axial images and sagittal and coronal reformations were obtained. DLP: 157.12 mGy-cm. FINDINGS: LUNGS: There is moderate centrilobular emphysema with a predominantly upper and mid lung distribution. As seen on the chest x-ray, there is irregular dense consolidation present posteriorly within the apical posterior segment of the left upper lobe with surrounding thickening of the interlobular septae extending to the left major fissure. There is a similar but smaller area of irregular dense masslike consolidation present in the posterior segment of the right upper lobe with surrounding areas of interlobular septal thickening extending to the right major fissure. The airways are mildly bronchiectatic leading up to these areas of presumed consolidation. There are 2 small approximately 0.3 cm nodular densities in the lateral periphery of the right upper lobe (series 4, image 172 and 174), new when compared to 06/18/2014. These are of doubtful clinical significance. No effusion or pneumothorax. Central airways are diffusely thickened and patent. PLEURA: There is no pleural effusion. No pleural mass or thickening. LYMPHATIC STRUCTURES: No mediastinal, hilar or axillary adenopathy or free fluid collection. CARDIOVASCULAR STRUCTURES: Aortic and heart size normal. No pericardial effusion. Moderate atherosclerotic calcifications of the aorta, great vessels and coronary arteries are seen. Enlargement of the main pulmonary arteries is seen, measuring 2.8 cm in diameter. UPPER ABDOMEN: There are several variably sized low-attenuation masses in the left kidney, similar to the previous study, consistent with multiple renal cysts. In addition, there is a hyperdense 0.8 cm upper pole left renal exophytic mass (series 2, image 55) with mean attenuation values of 81 Hounsfield units, similar to the prior study and consistent with a hyperdense proteinaceous or hemorrhagic cyst. Included portions of the solid organs in the upper abdomen otherwise unremarkable. OSSEOUS STRUCTURES: No suspicious focal findings. IMPRESSION: 1. Moderate centrilobular emphysema seen with interval development of dense masslike areas of consolidation in both lung apices, left greater than right. Given the short interval development (normal chest x-ray dated 12/03/2016), an infectious process is favored over malignant process. Findings are consistent with clinical suspicion of community-acquired pneumonia. No obstructing endobronchial lesion is seen. Mild traction bronchiectasis is seen associated with these findings. Would recommend chest x-ray follow-up to resolution. 2. Two 0.3 cm nodular densities in the right upper lobe, new from 2013. These are of doubtful clinical significance. Given the patient's high-risk status, however, follow-up assessment in 6 months is recommended. 3. No adenopathy. 4. Enlarged pulmonary arteries, suspicious for pulmonary arterial hypertension. 5. Left renal simple cysts and hyperdense hemorrhagic or proteinaceous cyst, similar to prior study.
[2017-01-28 16:03] VITALS: BP 138/61
--- NOTE | 2017-01-28 17:33 | PN- Cardiology ---
Subjective Subjective: * Cynthia was recently seen in the office with a headache that persists today. Her breathing is improved but is not quite back to her baseline. No significant chest discomfort. * Increased WBC count on steroids. * Fever has resolved. Objective Vital Signs and I&Os Vital Signs Date Time Temp Pulse Resp B/P B/P Pulse O2 O2 Flow FiO2 Mean Ox Delivery Rate 01/28 1603 99.0 93 22 138/61 97 Nasal 2.0L Cannula 01/28 1553 98 Nasal 2.0L Cannula 01/28 1026 97 Nasal 2.0L Cannula 01/28 0933 80 148/60 / 0800 98 Nasal 2.0L Cannula 01/28 0800 97.7 73 22 152/78 98 05/ 0000 98 Nasal 2.0L Cannula 01/27 2230 98.2 88 22 152/78 98 Nasal 2.0L Cannula Intake & Output 01/28 1600 05/08 0800 05/08 0000 05/07 1600 05/ 0800 05/07 0000 Intake Total 1000 480 740 640 100 640 Output Total 1600 900 Balance -600 -420 740 640 100 640 Intake, IV 140 Intake, Oral 1000 480 600 640 100 640 Number 2 Bowel Movements Output, Urine 1600 900 Patient 106 lb Weight Physical Exam: General: WD/ WN female in NAD: alert and oriented x 3 NECK: no JVD, no carotid bruit Heart: RRR with ectopy. No murmur Lungs: no crackles, decreased air movement bilaterally with expiratory wheezing Extremities: No edema Assessment/Plan Assessment/Plan * This patient is improving with treatment for her community acquired pneumonia with associated bronchospasm. * Atrial fibrillation. Continue Tykosin to maintain a sinus rhythm. We have stopped her Eliquis due to her propensity to bleed although a recent enteroscopy and colonoscopy did not reveal any clear source of potential bleed. Continue Cardizem for rate control. * No significant chest discomfort. Continue NTG patch at 0.6mg/hr daily as an antianginal as well as to control her blood pressure. 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 This is a region of a prior TX and does receive collateral flow. Since bleeding remains a problem and she has not had a recent PCI, I think it is prudent to stop Plavix but we will restart aspirin. Fortunately she has no evidence of decompensated CHF. I believe she has less bronchospasm off metoprolol. I am not inclined to restart any beta blockers. * The patient's achiness does not appear to be related to her statin and is becoming somewhat less intense. A prior MRI documented some spinal stenosis. 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 Extra-strength Tylenol was recommended. Continue telemetry? Yes
[2017-01-29 00:51] VITALS: BP 130/68
--- NOTE | 2017-01-29 06:31 | ECHOCARDIOGRAM REPORT ---
STEPH LEOS Age: 67 : 1950 Gender: F Exam Date: 01/28/2017 11:26 Exam Location: [address] Ht (in): 62 Wt (lb): 106 BSA: 1.45 BP: 148 / 60 Ordering Physician: MARY SOLITARIO MD Referring Physician: MARY SOLITARIO MD Technologist: Jovany Gale [facility] Room Number: 181-1 Indications: VENTRICULAR TACHYCARDIA Rhythm: Sinus Technical Quality: good FINDINGS Left Ventricle Normal left ventricular size with mild left ventricular hypertrophy. Normal systolic function with no obvious regional wall motion abnormalities. Normal left ventricular diastolic filling pattern for age. The ejection fraction is visually estimated at 60%. Right Ventricle The right ventricle is mildly enlarged with normal function. Right Atrium The right atrium is normal in size. Left Atrium The left atrium is moderately dilated. The interatrial septum is intact. Mitral Valve The mitral valve is normal in structure and function. There is mild mitral regurgitation. Aortic Valve Structurally normal aortic valve without significant sclerosis or stenosis. There is moderate aortic regurgitation. Tricuspid Valve The tricuspid valve is normal in structure and function. There is trace to mild tricuspid regurgitation. Pulmonary artery systolic pressure is mildly elevated to 41mmHg. Pulmonic Valve Structurally normal pulmonic valve. There is no pulmonic regurgitation. Pericardium Normal pericardium without effusion. No pleural effusion. Great Vessels Normal aortic root dimension. The aortic arch and great vessels are well seen and are normal. CONCLUSIONS 1. Normal EF of 60%. 2. Mild left ventricular hypertrophy. 3. Mild right ventricular enlargement. 4. Moderate left atrial enlargement. 5. Mild mitral regurgitation. 6. Trace to mild tricuspid regurgitation. 7. Moderate aortic regurgitation. 8. Mild pulmonary hypertension. Gerard Naranjo M.D. (Electronically Signed) Final Date: 29 Jan 2017 06:31 MEASUREMENTS (Male / Female) Normal Values 2D ECHO LV Diastolic Diameter PLAX 4.4 cm 4.2 - 5.9 / 3.9 - 5.3 cm LV Systolic Diameter PLAX 2.9 cm 2.1 - 4.0 cm LV Fractional Shortening PLAX 34.1 % 25 - 46 % LV Ejection Fraction 2D Teich 63.3 % IVS Diastolic Thickness 1.2 cm LVPW Diastolic Thickness 1.2 cm LV Relative Wall Thickness 0.5 RV Internal Dim ED PLAX 3.9 cm 1.9 - 3.8 cm LVOT Diameter 1.8 cm Aortic Root Diameter 2.5 cm LA Systolic Diameter LX 4.7 cm 3.0 - 4.0 / 2.7 - 3.8 cm LA Volume 100.0 cm 18 - 58 / 22 - 52 cm DOPPLER AV Peak Velocity 182.0 cm/s AV Peak Gradient 13.2 mmHg AV Mean Velocity 125.0 cm/s AV Mean Gradient 7.0 mmHg AV Velocity Time Integral 40.7 cm AI Deceleration [place] 360.5 cm/s AI Peak Velocity 371.5 cm/s AI Pressure Half Time 302.5 ms AI Peak Gradient 55.2 mmHg LVOT Peak Velocity 135.0 cm/s LVOT Peak Gradient 7.3 mmHg LVOT Mean Velocity 80.1 cm/s LVOT Mean Gradient 3.0 mmHg LVOT Velocity Time Integral 29.9 cm LVOT Stroke Volume 76.1 cm AV Area Cont Eq vti 1.9 cm AV Area Cont Eq pk 1.9 cm MV Peak Velocity 124.0 cm/s MV Peak Gradient 6.2 mmHg MV Mean Velocity 59.0 cm/s MV Mean Gradient 2.0 mmHg Mitral E Point Velocity 110.0 cm/s Mitral A Point Velocity 31.1 cm/s Mitral E to A Ratio 3.5 MV PHT Velocity 129.0 cm/s MV Deceleration [place] 406.0 cm/s MV Pressure Half Time 95.3 ms MV Area PHT 2.3 cm MV Deceleration Time 201.0 ms TR Peak Velocity 280.0 cm/s TR Peak Gradient 31.4 mmHg Right Atrial Pressure 10.0 mmHg Pulmonary Artery Systolic Pressu 41.4 mmHg Right Ventricular Systolic Press 41.4 mmHg PV Peak Velocity 62.0 cm/s PV Peak Gradient 1.5 mmHg PV Mean Velocity 37.0 cm/s PV Mean Gradient 1.0 mmHg PV Velocity Time Integral 7.8 cm LV E' Lateral Velocity 12.2 cm/s Mitral E to LV E' Lateral Ratio 9.0 LV E' Septal Velocity 7.2 cm/s Mitral E to LV E' Septal Ratio 15.3
--- NOTE | 2017-01-29 07:56 | PN- Housestaff ---
See Addendum Subjective Follow-up For: Community acquired pneumonia Marked leukocytosis COPD exacerbation Non-specific ST-T wave abnormality Nonsustained ventricular tachycardia Tele-Events Since Last Visit: Sinus rhythm, heart rate 71-81, some PVCs Subjective: Afebrile, hemodynamically stable, no acute overnight events reported. WBCs improved to 21 down from 51. Patient still reported cough productive of nonbloody white to yellowish sputum. She denies chest pain, shortness breath, or any other active complaints. Review of Systems Constitutional: Reports: see HPI. Objective Last 24 Hrs of Vital Signs/I&O Vital Signs Date Time Temp Pulse Resp B/P B/P Pulse O2 O2 Flow FiO2 Mean Ox Delivery Rate 01/29 0950 82 124/64 01/29 0822 96 Nasal 2.0L Cannula 01/30 800 Nasal 2.0L Cannula 01/30 800 98.0 82 20 124/64 99 Nasal 2.0L Cannula 01/29 0051 98.5 97 22 130/68 96 Nasal 2.0L Cannula 01/29 0000 94 Nasal 2.0L Cannula 01/28 1603 99.0 93 22 138/61 97 Nasal 2.0L Cannula 01/28 1553 98 Nasal 2.0L Cannula Intake & Output 01/29 1600 01/29 0800 01/29 0000 Intake Total 400 200 Output Total 750 1000 Balance -350 -800 Intake, Oral 400 200 Output, Urine 750 1000 Physical Exam General Appearance: Alert, Oriented X3, Cooperative, No Acute Distress HEENT: Atraumatic, PERRLA, EOMI, Mucous Membr. moist/pink Cardiovascular: Regular Rate, Normal S1, Normal S2, No Murmurs Lungs: decreased air entry over both lungs Abdomen: Normal Bowel Sounds, Soft, No Tenderness Neurological: Normal Speech Extremities: No Clubbing, No Cyanosis, No Edema Current Medications: Current Medications Sig/Lana Start time Last Medication Dose Route Stop Time Status Admin Acetaminophen 650 MG Q6P PRN 01/25 2215 AC 01/28 PO 1542 Acetaminophen/ 1 TAB Q8P PRN 01/26 0130 AC 01/29 Hydrocodone [place] PO 0751 Albuterol Sulfate 3 ML EVERY 4 HRS/AWAKE 01/26 0815 AC 01/29 INH 0821 Alprazolam 0.5 MG TID PRN 01/28 0805 AC 01/29 PO 02/04 0804 0755 Arformoterol Tartrate 15 MCG DAILY 01/26 1000 AC 01/28 INH 1023 Ascorbic Acid 500 MG DAILY 01/26 1000 AC 01/29 PO 0950 Budesonide 0.5 MG BID 01/26 1000 AC 01/29 INH 0821 Bupropion HCl 200 MG DAILY 01/26 1000 AC 01/29 PO 0950 Ceftazidime 1,000 MG Q12H 01/28 1300 AC 01/29 IV 0125 Ceftriaxone Sodium 1,000 MG 2200 01/26 2200 DC 05 IV 2210 Diltiazem HCl 180 MG DAILY 01/26 1000 AC 01/29 PO 0950 Docusate Sodium 200 MG AT BEDTIME 01/28 2200 AC 01/28 PO 2209 Dofetilide 250 MCG BID 01/26 0015 AC 01/29 PO 0952 Doxycycline Hyclate 100 MG Q12 01/26 2200 DC 01/28 Sodium Chloride 100 ML IV 0922 Enoxaparin Sodium 40 MG DAILY 01/26 1000 AC 01/29 SC 0951 Ezetimibe 10 MG DAILY 01/26 1000 AC 01/29 PO 0951 Ferrous Sulfate 325 MG DAILY 01/26 1000 AC 01/29 PO 0950 Folic Acid 1 MG DAILY 01/26 1000 AC 01/29 PO 0950 Furosemide 40 MG BID 01/26 2200 AC 01/29 PO 0950 Guaifenesin 10 ML Q6P PRN 01/28 1200 AC 01/29 PO 0751 Guaifenesin 600 MG DAILY 01/26 1000 AC 01/29 PO 0950 Levothyroxine Sodium 0.1 MG DAILY AC 01/26 0700 AC 01/29 PO 0634 Losartan Potassium 50 MG DAILY 01/26 1743 AC 01/29 PO 0950 Melatonin 3 MG .STK-MED ONE 01/28 2209 DC PO 01/28 2210 Melatonin 3 MG AT BEDTIME PRN 01/26 1945 AC 01/28 PO 2209 Methylprednisolone 40 MG Q8 01/26 0600 AC 01/29 IV 0634 Montelukast Sodium 10 MG AT BEDTIME 01/26 2200 AC 01/28 PO 2209 Nitroglycerin 0.6 MG DAILY 01/26 1000 AC 01/29 TOP 0951 Omeprazole 40 MG DAILY AC 01/26 0700 AC 01/29 PO 0634 Potassium Chloride 20 MEQ DAILY 01/26 1000 AC 01/29 PO 0950 Pravastatin Sodium 40 MG AT BEDTIME 01/260 AC 01/28 PO 2209 Roflumilast 500 MCG DAILY 01/26 1000 AC 01/29 PO 0949 Sertraline HCl 200 MG DAILY 01/26 1000 AC 01/29 PO 0951 Sucralfate 1,000 MG 4 TIMES/DAY 01/25 2200 AC 01/29 PO 0950 Tiotropium [place] 1 PUF DAILY 01/26 1000 AC 01/29 INH 0951 Trimethobenzamide HCl 200 MG TIDPRN PRN 01/26 0230 AC IM Last 24 Hrs of Lab/Wan Results Last 24 Hrs of Labs/Mics: Laboratory Tests 01/29/17 0702: Anion Gap 9, Estimated GFR > 60, BUN/Creatinine Ratio 36.7 H, CBC w Diff MAN DIFF ORDERED, RBC 3.46 L, MCV 91.9, MCH 30.1, RDW 14.5, MPV 7.3 L, Gran % 95.3 H, Lymphocytes % 3.7 L, Monocytes % 1.0 L, Eosinophils % 0, Basophils % 0 L, Absolute Granulocytes 20.8 H, Absolute Lymphocytes 0.8 L, Absolute Monocytes 0.2, Absolute Eosinophils 0, Absolute Basophils 0, Platelet Estimate ADEQUATE, Hypochromic-Microcytic 1+, Anisocytosis 1+, PUBS MCHC 32.8 L Assessment/Plan Assessment: 67 y/o F with PMHx of COPD on 2 L NC, CAD and atrial fibrillation not on anticoagulation who is admitted for community acquired pneumonia. #Community-acquired pneumonia: On day 5 of IV antibiotics, patient was initially on ceftriaxone and doxycycline, she was switched to ceftazidime yesterday. CT Chest, performed with IV contrast to evaluate for malignancy in the setting of marked leukocytosis, with dense masslike areas of consolidation in both lung apices, left greater than right, favoring an infectious process (i.e. CAP) over pneumonia. CT Abdomen/Pelvis performed to rule out possible perforation or other complications of recent EGD/colonoscopy, given marked leukocytosis, negative for acute intraabdominal process. Sputum Cx growing GNR. Sputum Cx have grown Pseudomonas in the past. * Continue ceftazidime 1 g IV Q12H. * Follow sputum Cx speciation and susceptibilities. #COPD exacerbation: Currently on 2 L oxygen which is her baseline requirement. * We will taper oxygen if oxygen saturation allow * Continue Solumedrol 40 mg IV Q8H. * Continue jzuik-ao-evlpmkclb roflumilast 500 mcg PO daily. * Continue aavfz-ve-kqdnenkny Spiriva inhaler, Pulmbicort and Brovana nebuliizers. * TRC and nebs. * Provide supplemental oxygen as needed to keep SpO2 >92%. * Continue Mucinex. * Robitussin PRN for cough. #Non-specific T wave abnormality/Nonsustained V-tach: EKG with non-specific T wave abnormality. Mild troponin elevation to 0.05 which have downtrended. Echocardiogram results showed mild left ventricle hypertrophy with EF of 60%. She denies chest pain. * Continue to monitor on telemetry as per cardio. #Paroxysmal atrial fibrillation: Remains in sinus rhythm. Not on anticoagulation secondary to history of bleed. * Continue Cardizem CD 180 mg PO daily and dofetilide 250 mcg PO BID. #Dysphagia: Self-reported aspiration with thin liquids. However she passed swallowing evaluation. * NTD #HTN: * Continue hcrlw-ij-goroovorr Lasix 40 mg PO BID and losartan 50 mg PO daily. #Neck pain: Neck XR with moderate degenerative changes secondary to underlying osteoarthritis. * Continue Vicodin PRN for pain. Diet: Heart healthy DVT PPx: Lovenox and ALPs CODE: FULL Problem List: 1. Leukocytosis 2. CAP (community acquired pneumonia) 3. COPD exacerbation Pain Ratin Pain Location: N/A Pain Goal: Remain pain free Pain Plan: See A&P Tomorrow's Labs & Rationales: CBC to f/u WBCs
[2017-01-29 08:00] VITALS: BP 124/64
--- NOTE | 2017-01-29 08:19 | PN- Pulmonary ---
Subjective HPI/Critical Care Issues: Patient continues to complain of dyspnea on exertion sputum is growing gram- negative rods CAT scan is consistent with pneumonia Objective Current Medications: Current Medications Sig/Lana Start time Last Medication Dose Route Stop Time Status Admin Acetaminophen 650 MG Q6P PRN 01/25 2215 AC 01/28 PO 1542 Acetaminophen/ 1 TAB Q8P PRN / 0130 AC 01/29 Hydrocodone Bitart PO 0751 Albuterol Sulfate 3 ML EVERY 4 HRS/AWAKE 01/26 0815 AC 01/28 INH 2000 Alprazolam 0.5 MG TID PRN 01/28 0805 AC 01/29 PO 02/04 0804 0755 Arformoterol Tartrate 15 MCG DAILY 01/26 1000 AC 01/28 INH 1023 Ascorbic Acid 500 MG DAILY 01/26 1000 AC 01/28 PO 0923 Budesonide 0.5 MG BID 01/26 1000 AC 01/28 INH 1553 Bupropion HCl 200 MG DAILY 01/26 1000 AC 01/28 PO 0924 Ceftazidime 1,000 MG Q12H / 1300 AC 01/29 IV 0125 Ceftriaxone Sodium 1,000 MG 2200 01/26 2200 DC 05 IV 2210 Diltiazem HCl 180 MG DAILY 01/26 1000 AC 01/28 PO 0932 Docusate Sodium 200 MG AT BEDTIME 01/28 2200 AC 01/28 PO 2209 Dofetilide 250 MCG BID 01/26 0015 AC 01/28 PO 2209 Doxycycline Hyclate 100 MG Q12 01/26 2200 DC 01/28 Sodium Chloride 100 ML IV 0922 Enoxaparin Sodium 40 MG DAILY 01/26 1000 AC 01/28 SC 0927 Ezetimibe 10 MG DAILY 01/26 1000 AC 01/28 PO 0924 Ferrous Sulfate 325 MG DAILY 01/26 1000 AC 01/28 PO 0923 Folic Acid 1 MG DAILY 01/26 1000 AC 01/28 PO 0923 Furosemide 40 MG BID 01/26 2200 AC 01/28 PO 2209 Guaifenesin 10 ML Q6P PRN 01/28 1200 AC 01/29 PO 0751 Guaifenesin 600 MG DAILY 01/26 1000 AC 01/28 PO 0927 Levothyroxine Sodium 0.1 MG DAILY AC 01/26 0700 AC 01/29 PO 0634 Losartan Potassium 50 MG DAILY 01/26 1743 AC 01/28 PO 0933 Melatonin 3 MG .STK-MED ONE 01/28 2209 DC PO 01/28 2210 Melatonin 3 MG AT BEDTIME PRN 01/26 1945 AC 01/28 PO 220 Methylprednisolone 40 MG Q8 01/26 600 AC 01/29 IV 0634 Montelukast Sodium 10 MG AT BEDTIME 01/26 2200 AC 01/28 PO 220 Nitroglycerin 0.6 MG DAILY 01/26 1000 AC 01/28 TOP 0929 Omeprazole 40 MG DAILY AC 01/26 07 AC 01/29 PO 0634 Potassium Chloride 20 MEQ DAILY 01/26 1000 AC 01/28 PO 0927 Pravastatin Sodium 40 MG AT BEDTIME 01/26 2200 AC 01/28 PO 220 Roflumilast 500 MCG DAILY 01/26 1000 AC 01/28 PO 0926 Sertraline HCl 200 MG DAILY 01/26 1000 AC 01/28 PO 0924 Sucralfate 1,000 MG 4 TIMES/DAY 01/25 2200 AC 01/28 PO 220 Tiotropium [place] 1 PUF DAILY 01/26 1000 AC 01/28 INH 0925 Trimethobenzamide HCl 200 MG TIDPRN PRN 01/26 0230 AC IM Vital Signs & I&O Last 24 Hrs of Vitals and I&O: Oxygen saturation 2 L 96% exam for chest shows occasional rhonchi cardiac exam shows regular S1 and S2 without murmurs Vital Signs Date Time Temp Pulse Resp B/P B/P Pulse O2 O2 Flow FiO2 Mean Ox Delivery Rate 01/29 0051 98.5 97 22 130/68 96 Nasal 2.0L Cannula 01/29 0000 94 Nasal 2.0L Cannula 01/28 1603 99.0 93 22 138/61 97 Nasal 2.0L Cannula 01/28 1553 98 Nasal 2.0L Cannula 01/28 1026 97 Nasal 2.0L Cannula 01/28 0933 80 148/60 Intake & Output 01/29 1600 01/29 0800 01/29 0000 Intake Total 400 200 Output Total 750 1000 Balance -350 -800 Intake, Oral 400 200 Output, Urine 750 1000 Impression/Plan Impression/Plan Impression/Plan: 67-year-old with advanced COPD admitted following colonoscopy with increased shortness breath bronchospasm and marked leukocytosis with left shift. Chest x- ray shows only minor abnormalities. CT scan consistent with community-acquired pneumonia Recommendations: . Continue steroids pending identification of gram-negative rods were changed to Fortaz in view of persistently elevated white count. Taper FiO2 his saturations allow
[2017-01-29 08:25] LABS: ABSOLUTE BASOPHIL COUNT 0 /CUMM (0.0-0.2); ABSOLUTE EOSINOPHIL COUNT 0 /CUMM (0.0-0.7); ABSOLUTE GRANULOCYTE CT 20.8 /CUMM (1.4-6.5); ABSOLUTE LYMPH COUNT 0.8 /CUMM (1.2-3.4); ABSOLUTE MONOCYTE COUNT 0.2 /CUMM (0.10-0.60); BASOPHIL % 0 % (0.0-2.0); EOSINOPHIL % 0 % (0-5); GRANULOCYTE % 95.3 % (42.2-75.2); HEMATOCRIT 31.8 % (37-47); MEAN CORPUSCULAR HGB 30.1 PG (27.0-31.0); MEAN CORPUSCULAR HGB CONC 32.8 G/DL (33.0-37.0); MEAN CORPUSCULAR VOLUME 91.9 FL (81.0-99.0); MEAN PLATELET VOLUME 7.3 FL (7.4-10.4); PLATELET COUNT 486 /CUMM (130-400); RBC DISTRIBUTION WIDTH 14.5 % (11.5-14.5); RED BLOOD CELL CT 3.46 /CUMM (4.20-5.40); WHITE BLOOD CELL COUNT 21.8 /CUMM (4.8-10.8)
--- NOTE | 2017-01-29 09:53 | NUR ---
Physical Therapy. PT consult received and chart reviewed. Pt reports she has been I around the room, I'ly managing 02 tubing. Pt has home 02 and denies any stairs. Pt observed ambulating around room w/ steady gait w/out AD, Sp02 98-99% on 2L. No acute PT indicated at this time. Recommend [facility] upon d/c.
--- NOTE | 2017-01-29 12:38 | Patient Discharge Instructions ---
Discharge Instructions General Discharge Information You were seen/treated for: Community acquired pneumonia COPD exacerbation Special Instructions: Please follow up with PCP within one week Please follow up with integration analyst within one week. Diet Continue normal diet: Yes Recommended Diet: Heart Healthy Activity Full Activity/No Limits: Yes Activity Self Limited: Yes Acute Coronary Syndrome Inclusion Criteria At DC or during hospital stay patient has or had the following: ACS DIAGNOSIS No Discharge Core Measures Meds if any: Prescribed or Continued at Discharge Meds if any: NOT Prescribed or Continued at Discharge Congestive Heart Failure Inclusion Criteria At DC or during hospital stay patient has or had the following: CHF DIAGNOSIS No Discharge Core Measures Meds if any: Prescribed or Continued at Discharge Meds if any: NOT Prescribed or Continued at Discharge Cerebrovascular accident Inclusion Criteria At DC or during hospital stay patient has or had the following: CVA/TIA Diagnosis No Discharge Core Measures Meds if any: Prescribed or Continued at Discharge Meds if any: NOT Prescribed or Continued at Discharge Venous thromboembolism Inclusion Criteria VTE Diagnosis No VTE Type NONE VTE Confirmed by (Test) NONE Discharge Core Measures - Per Current guidelines, there needs to be overlap - treatment for the first 5 days of Warfarin therapy. - If discharged on Warfarin prior to 5 days of - overlap therapy, the patient will need to be - assessed for post discharge needs including - *Post discharge parental anticoagulation - *Warfarin and/or parental anticoagulation education - *Follow up date to check INR post discharge At least 5 days overlap therapy as Inpatient No Meds if any: Prescribed or Continued at Discharge Note: Overlap Therapy is Warfarin and Anticoagulant Meds if any: NOT Prescribed or Continued at Discharge
[2017-01-29 15:54] VITALS: BP 120/50
--- NOTE | 2017-01-29 21:11 | PN- Cardiology ---
Subjective Subjective: * Breathing is improved. * Run of wide complex tachycardia noted Objective Vital Signs and I&Os Vital Signs Date Time Temp Pulse Resp B/P B/P Pulse O2 O2 Flow FiO2 Mean Ox Delivery Rate 01/29 1633 97 Nasal 2.0L Cannula 01/29 1554 98.1 86 20 120/50 98 Nasal Cannula 01/29 0950 82 124/64 01/29 0822 96 Nasal 2.0L Cannula 01/29 0800 Nasal 2.0L Cannula 01/30 800 98.0 82 20 124/64 99 Nasal 2.0L Cannula 01/29 0051 98.5 97 22 130/68 96 Nasal 2.0L Cannula 01/29 0000 94 Nasal 2.0L Cannula Intake & Output 01/29 1600 01/29 0800 01/29 0000 01/28 1600 01/28 0000 Intake Total 881 910 554 8834 480 740 Output Total 939 888 6555 1600 900 Balance 431 -350 -800 -600 -420 740 Intake, IV 41 140 Intake, Oral 840 390 646 4122 480 600 Number 1 2 Bowel Movements Output, Urine 647 410 4790 1600 900 Physical Exam: General: WD/ WN female in NAD: alert and oriented x 3 NECK: no JVD, no carotid bruit Heart: RRR with ectopy. No murmur Lungs: no crackles, decreased air movement bilaterally with expiratory wheezing Extremities: No edema Assessment/Plan Assessment/Plan * Tykosin is an antiarrhythmic medication that can cause ventricular tachycardia. 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 Monitor for prolongation of the QT interval greater than 20% of baseline and becoming greater than half the R-R interval. * This patient is improving with treatment for her community acquired pneumonia with associated bronchospasm. * Atrial fibrillation. Continue Tykosin to maintain a sinus rhythm. We have stopped her Eliquis due to her propensity to bleed although a recent enteroscopy and colonoscopy did not reveal any clear source of potential bleed. Continue Cardizem for rate control. * No significant chest discomfort. Continue NTG patch at 0.6mg/hr daily as an antianginal as well as to control her blood pressure. 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 This is a region of a prior [place] and does receive collateral flow. Since bleeding remains a problem and she has not had a recent PCI, I think it is prudent to stop Plavix but we will restart aspirin. Fortunately she has no evidence of decompensated CHF. I believe she has less bronchospasm off metoprolol. I am not inclined to restart any beta blockers. * The patient's achiness does not appear to be related to her statin and is becoming somewhat less intense. A prior MRI documented some spinal stenosis. 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 Extra-strength Tylenol was recommended. Continue telemetry? Yes
[2017-01-30 08:04] VITALS: BP 172/80
--- NOTE | 2017-01-30 08:21 | PN- Pulmonary ---
Subjective HPI/Critical Care Issues: Patient feels improved white count is responding to ceftaz a day for gram- negative pneumonia caused by Pseudomonas Objective Current Medications: Current Medications Sig/Lana Start time Last Medication Dose Route Stop Time Status Admin Acetaminophen 650 MG .STK-MED ONE 01/29 1809 DC PO 01/29 1810 Acetaminophen 650 MG Q6P PRN 01/25 2215 AC 01/28 PO 1542 Acetaminophen/ 1 TAB Q8P PRN 01/26 0130 AC 01/30 Hydrocodone Bitart PO 0211 Albuterol Sulfate 3 ML EVERY 4 HRS/AWAKE 01/26 0815 AC 01/30 INH 0812 Alprazolam 0.5 MG TID PRN 01/28 0805 AC 01/29 PO 02/04 0804 2244 Arformoterol Tartrate 15 MCG DAILY 01/26 1000 AC 01/30 INH 0817 Ascorbic Acid 500 MG DAILY 01/26 1000 AC 01/29 PO 0950 Aspirin 81 MG DAILY 01/30 1000 AC PO Budesonide 0.5 MG BID 01/26 1000 AC 01/30 INH 0811 Bupropion HCl 200 MG DAILY 01/26 1000 AC 01/29 PO 0950 Ceftazidime 1,000 MG Q12H 01/28 1300 AC 05 IV 0100 Diltiazem HCl 180 MG DAILY 01/26 1000 AC 01/29 PO 0950 Docusate Sodium 200 MG AT BEDTIME 01/28 2200 AC 01/29 PO 2247 Dofetilide 250 MCG BID 01/26 0015 AC 01/29 PO 2248 Enoxaparin Sodium 40 MG DAILY 01/26 1000 AC 01/29 SC 0951 Ezetimibe 10 MG DAILY 01/26 1000 AC 01/29 PO 0951 Ferrous Sulfate 325 MG DAILY 01/26 1000 AC 01/29 PO 0950 Folic Acid 1 MG DAILY 01/26 1000 AC 01/29 PO 0950 Furosemide 40 MG BID 01/26 2200 AC 01/30 PO 0641 Guaifenesin 10 ML .STK-MED ONE 01/29 1854 DC PO 01/29 1855 Guaifenesin 10 ML Q6P PRN 01/28 1200 AC 01/29 PO 1852 Guaifenesin 600 MG DAILY 01/26 1000 AC 01/29 PO 0950 Levothyroxine Sodium 0.1 MG DAILY AC 01/26 0700 AC 01/30 PO 0639 Losartan Potassium 50 MG DAILY 01/26 1743 AC 01/29 PO 0950 Melatonin 3 MG AT BEDTIME PRN 01/26 1945 AC 01/28 PO 2209 Methylprednisolone 40 MG Q8 01/26 0600 AC 05 IV 0600 Montelukast Sodium 10 MG AT BEDTIME 01/26 2200 AC 01/29 PO 2249 Nitroglycerin 0.6 MG DAILY / 1000 AC 01/29 TOP 0951 Omeprazole 40 MG DAILY AC 01/26 0700 AC 01/30 PO 0639 Patient Medication 1 ED .STK-MED ONE 01/29 1359 DE Teaching ED 01/29 1400 Potassium Chloride 20 MEQ DAILY 01/26 1000 AC 01/29 PO 0950 Pravastatin Sodium 40 MG AT BEDTIME 01/26 2200 AC 01/29 PO 2250 Roflumilast 500 MCG DAILY 01/26 1000 AC 01/29 PO 0949 Sertraline HCl 200 MG DAILY 01/26 1000 AC 01/29 PO 0951 Sucralfate 1,000 MG 4 TIMES/DAY 01/25 2200 AC 01/29 PO 2245 Tiotropium [place] 1 PUF DAILY 01/26 1000 AC 01/29 INH 0951 Trimethobenzamide HCl 200 MG TIDPRN PRN 01/26 0230 AC IM Vital Signs & I&O Last 24 Hrs of Vitals and I&O: Vital Signs Date Time Temp Pulse Resp B/P B/P Pulse O2 O2 Flow FiO2 Mean Ox Delivery Rate 01/30 0804 98.4 56 20 172/80 97 05/ 0000 Nasal 2.0L Cannula 01/29 1633 97 Nasal 2.0L Cannula 01/29 1554 98.1 86 20 120/50 98 Nasal Cannula 01/29 0950 82 124/64 01/29 0822 96 Nasal 2.0L Cannula Intake & Output 01/30 1600 01/30 0800 05/ 0000 Intake Total 200 440 Output Total 1100 1300 Balance -900 -860 Intake, Oral 200 440 Output, Urine 1100 1300 Oxygen saturation 2 L 97% exam for chest shows diminished breath sounds cardiac exam shows regular rhythm Impression/Plan Impression/Plan Impression/Plan: 67-year-old with advanced COPD admitted following colonoscopy with increased shortness breath bronchospasm and marked leukocytosis with left shift. Chest x- ray shows only minor abnormalities. CT scan consistent with community-acquired pneumonia. White count has improved after treatment for pseudomonas pneumonia Recommendations: Begin oral prednisone. Taper FiO2. Continue Fortaz.
[2017-01-30 08:51] LABS: ABSOLUTE BASOPHIL COUNT 0 /CUMM (0.0-0.2); ABSOLUTE EOSINOPHIL COUNT 0 /CUMM (0.0-0.7); ABSOLUTE GRANULOCYTE CT 17.6 /CUMM (1.4-6.5); ABSOLUTE LYMPH COUNT 0.4 /CUMM (1.2-3.4); ABSOLUTE MONOCYTE COUNT 0.2 /CUMM (0.10-0.60); BASOPHIL % 0 % (0.0-2.0); EOSINOPHIL % 0 % (0-5); GRANULOCYTE % 96.6 % (42.2-75.2); HEMATOCRIT 33.9 % (37-47); MEAN CORPUSCULAR VOLUME 90.8 FL (81.0-99.0); MEAN PLATELET VOLUME 7.1 FL (7.4-10.4); PLATELET COUNT 607 /CUMM (130-400); RED BLOOD CELL CT 3.73 /CUMM (4.20-5.40)
[2017-01-30 09:56] LABS: WHITE BLOOD CELL COUNT 18.2 /CUMM (4.8-10.8)
--- NOTE | 2017-01-30 11:48 | PN- Housestaff ---
See Addendum Subjective Follow-up For: Community acquired pneumonia Marked leukocytosis COPD exacerbation Non-specific ST-T wave abnormality Nonsustained ventricular tachycardia Subjective: febrile, hemodynamically stable, no acute overnight events reported. WBCs improved 18. Se still c/o cough productive of nonbloody white to yellowish sputum. She denies chest pain, shortness breath, or any other active complaints. Review of Systems Constitutional: Reports: see HPI. Objective Last 24 Hrs of Vital Signs/I&O Vital Signs Date Time Temp Pulse Resp B/P B/P Pulse O2 O2 Flow FiO2 Mean Ox Delivery Rate 01/31 940 71 130/58 01/30 0819 97 Nasal 2.0L Cannula 01/30 0804 98.4 56 20 172/80 97 01/30 08 97 Nasal 2.0L Cannula 01/30 0000 Nasal 2.0L Cannula 01/29 1633 97 Nasal 2.0L Cannula 01/29 1554 98.1 86 20 120/50 98 Nasal Cannula Intake & Output 01/30 1600 01/30 0800 01/30 0000 Intake Total 200 440 Output Total 1100 1300 Balance -900 -860 Intake, Oral 200 440 Output, Urine 1100 1300 Physical Exam General Appearance: Alert, Oriented X3, Cooperative, No Acute Distress HEENT: Atraumatic, PERRLA, EOMI, Mucous Membr. moist/pink Cardiovascular: Regular Rate, Normal S1, Normal S2, No Murmurs Lungs: decrease air-entry and wheezing bilaterally Abdomen: Soft, No Tenderness Neurological: Normal Speech Extremities: No Clubbing, No Cyanosis, No Edema Current Medications: Current Medications Sig/Lana Start time Last Medication Dose Route Stop Time Status Admin Acetaminophen 650 MG .STK-MED ONE 01/29 1809 DC PO 01/29 1810 Acetaminophen 650 MG Q6P PRN 01/25 2215 AC 01/28 PO 1542 Acetaminophen/ 1 TAB Q8P PRN 01/26 0130 AC 01/30 Hydrocodone Bitart PO 1344 Albuterol Sulfate 3 ML EVERY 4 HRS/AWAKE 01/26 0815 AC 01/30 INH 1312 Alprazolam 0.5 MG TID PRN 01/28 0805 AC 01/29 PO 02/04 08 2244 Arformoterol Tartrate 15 MCG DAILY 01/26 1000 AC 01/30 INH 0817 Ascorbic Acid 500 MG DAILY 01/26 1000 AC 01/30 PO 0940 Aspirin 81 MG DAILY 01/30 1000 AC 01/30 PO 0939 Budesonide 0.5 MG BID 01/26 1000 AC 01/30 INH 0811 Bupropion HCl 200 MG DAILY 01/26 1000 AC 01/30 PO 0939 Ceftazidime 1,000 MG Q12H 01/28 1300 AC 05 IV 1256 Diltiazem HCl 180 MG DAILY 01/26 1000 AC 01/30 PO 0939 Docusate Sodium 200 MG AT BEDTIME 01/28 2200 AC 01/29 PO 2247 Dofetilide 250 MCG BID 01/26 0015 AC 01/30 PO 0940 Enoxaparin Sodium 40 MG DAILY 01/26 1000 AC 01/30 SC 0954 Ezetimibe 10 MG DAILY 01/26 1000 AC 01/30 PO 0939 Ferrous Sulfate 325 MG DAILY 01/26 1000 AC 01/30 PO 0939 Folic Acid 1 MG DAILY 01/26 1000 AC 01/30 PO 0939 Furosemide 40 MG BID 01/26 2200 AC 01/30 PO 0641 Guaifenesin 10 ML .STK-MED ONE 01/29 1854 DC PO 01/29 185 Guaifenesin 10 ML Q6P PRN 01/28 1200 AC 01/29 PO 1852 Guaifenesin 600 MG DAILY 01/26 1000 AC 01/30 PO 0939 Levothyroxine Sodium 0.1 MG DAILY AC 01/26 0700 AC 01/30 PO 0639 Losartan Potassium 50 MG DAILY 01/26 1743 AC 01/30 PO 0940 Melatonin 3 MG AT BEDTIME PRN 01/26 1945 AC 01/28 PO 2209 Methylprednisolone 40 MG Q12 01/30 1000 AC IV Methylprednisolone 40 MG Q8 01/26 0600 DC 05 IV 0600 Montelukast Sodium 10 MG AT BEDTIME 01/26 2200 AC 01/29 PO 2249 Nitroglycerin 0.6 MG DAILY 01/26 1000 AC 01/30 TOP 0939 Omeprazole 40 MG DAILY AC 01/26 0700 AC 01/30 PO 0639 Potassium Chloride 20 MEQ DAILY 01/26 1000 AC 01/30 PO 0939 Pravastatin Sodium 40 MG AT BEDTIME 01/26 2200 AC 01/29 PO 2250 Roflumilast 500 MCG DAILY 01/26 1000 AC 01/30 PO 0942 Sertraline HCl 200 MG DAILY 01/26 1000 AC 01/30 PO 0940 Sucralfate 1,000 MG 4 TIMES/DAY 01/25 2200 AC 01/30 PO 1257 Tiotropium [place] 1 PUF DAILY 01/26 1000 AC 01/30 INH 0937 Trimethobenzamide HCl 200 MG TIDPRN PRN 01/26 0230 AC IM Last 24 Hrs of Lab/Wan Results Last 24 Hrs of Labs/Mics: Laboratory Tests 01/30/17 0838: Anion Gap 12, Estimated GFR > 60, BUN/Creatinine Ratio 33.8 H, CBC w Diff NO MAN DIFF REQ, RBC 3.73 L, MCV 90.8, MCH 30.0, RDW 15.0 H, MPV 7.1 L, Gran % 96.6 H, Lymphocytes % 2.1 L, Monocytes % 1.3 L, Eosinophils % 0, Basophils % 0 L, Absolute Granulocytes 17.6 H, Absolute Lymphocytes 0.4 L, Absolute Monocytes 0.2, Absolute Eosinophils 0, Absolute Basophils 0, PUBS MCHC 33.0 Assessment/Plan Assessment: 67 y/o F with PMHx of COPD on 2 L NC, CAD and atrial fibrillation not on anticoagulation who is admitted for community acquired pneumonia. #Community-acquired pneumonia: On day 6 of IV antibiotics, patient was initially on ceftriaxone and doxycycline, she was switched to ceftazidime 2days ago. CT Chest favoring an infectious process (i.e. CAP). CT Abdomen/Pelvis negative for acute intraabdominal process. Sputum Cx growing Pseudomonas. Patient will need to finish 10-14 days of antibiotic. Because patient is taking Tikosyn as antiarrhythmic cardiology recommended to watch her in telemetry after starting her on macrolide or quinolones, just because complaining of decreased to medication can lead to QT prolongation * Continue ceftazidime 1 g IV Q12H. * We will switch antibiotic to ciprofloxacin today after doing a baseline EKG * We will keep in clinical research monitor and watch for any QT interval that is greater than 500 or prolonged greater than 20% of baseline. * We will order EKG for tomorrow morning. * If patient is stable with no QT prolongation she may get discharged tomorrow #COPD exacerbation: Currently on 2 L oxygen which is her baseline requirement. * We will taper oxygen if oxygen saturation allow * Decrease Solumedrol to 40 mg IV Q12H. we'll start taper steroids tomorrow * Continue [id number]-[id number] roflumilast 500 mcg PO daily. * Continue [id number] Spiriva inhaler, Pulmbicort and Brovana nebuliizers. * TRC and nebs. * Provide supplemental oxygen as needed to keep SpO2 >92%. * Continue Mucinex. * Robitussin PRN for cough. #Non-specific T wave abnormality/Nonsustained V-tach: EKG with non-specific T wave abnormality. Mild troponin elevation to 0.05 which have downtrended. Echocardiogram results showed mild left ventricle hypertrophy with EF of 60%. She denies chest pain. * Continue to monitor on telemetry as per cardio. #Paroxysmal atrial fibrillation: Remains in sinus rhythm. Not on anticoagulation secondary to history of bleed. * Continue Cardizem CD 180 mg PO daily and dofetilide 250 mcg PO BID. #HTN: * Continue [id number]-bj-[id number] Lasix 40 mg PO BID and losartan 50 mg PO daily. #Neck pain: Neck XR with moderate degenerative changes secondary to underlying osteoarthritis. * Continue Vicodin PRN for pain. Diet: Heart healthy DVT PPx: Lovenox and ALPs CODE: FULL Problem List: 1. COPD (chronic obstructive pulmonary disease) 2. CAP (community acquired pneumonia) Pain Ratin Pain Location: NA Pain Goal: Remain pain free Pain Plan: See A&P Tomorrow's Labs & Rationales: CBC
--- NOTE | 2017-01-30 13:22 | PN- Cardiology ---
Subjective Subjective: * Breathing is improved. * sinus rhythm Objective Vital Signs and I&Os Vital Signs Date Time Temp Pulse Resp B/P B/P Pulse O2 O2 Flow FiO2 Mean Ox Delivery Rate 01/30 0940 71 130/58 01/30 0819 97 Nasal 2.0L Cannula 01/30 0804 98.4 56 20 172/80 97 01/30 0800 97 Nasal 2.0L Cannula 01/30 0000 Nasal 2.0L Cannula 01/29 1633 97 Nasal 2.0L Cannula 01/29 1554 98.1 86 20 120/50 98 Nasal Cannula Intake & Output 01/30 1600 01/30 0800 01/30 0000 01/29 1600 01/29 0800 01/29 0000 Intake Total 200 440 881 400 200 Output Total 1100 1300 463 515 2472 Balance -900 -860 431 -350 -800 Intake, IV 41 Intake, Oral 200 440 840 400 200 Number 1 Bowel Movements Output, Urine 1100 1300 774 491 2125 Physical Exam: General: WD/ WN female in NAD: alert and oriented x 3 NECK: no JVD, no carotid bruit Heart: RRR with ectopy. No murmur Lungs: no crackles, decreased air movement bilaterally Extremities: No edema Assessment/Plan Assessment/Plan * Tikosyn is an antiarrhythmic medication that can cause ventricular tachycardia. The combination of Tikosyn with certain antibiotics can increae the chance of malignant dysrhythmia's but this risk has been over-estimated in the setting of a normal EF and no prior issues that prolonge the QT interval. If adequate coverage of her infection can be achieved without macrolides or Cipro then that is of course preferable. Otherwise is it reasonable to give use the antibiotic that has coverage which monitoring in the hospital for a QT interval that is greater than 500 or prolonged greater than 20% of baseline. * This patient is improving with treatment for her community acquired pneumonia with associated bronchospasm. * Atrial fibrillation. Continue Tykosin to maintain a sinus rhythm. We have stopped her Eliquis due to her propensity to bleed although a recent enteroscopy and colonoscopy did not reveal any clear source of potential bleed. Continue Cardizem for rate control. * No significant chest discomfort. Continue NTG patch at 0.6mg/hr daily as an antianginal as well as to control her blood pressure. 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 This is a region of a prior [place] and does receive collateral flow. Since bleeding remains a problem and she has not had a recent PCI, I think it is prudent to stop Plavix but we will restart aspirin. Fortunately she has no evidence of decompensated CHF. I believe she has less bronchospasm off metoprolol. I am not inclined to restart any beta blockers. * The patient's achiness does not appear to be related to her statin and is becoming somewhat less intense. A prior MRI documented some spinal stenosis. 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 Extra-strength Tylenol was recommended. Continue telemetry? Yes
[2017-01-30 16:30] VITALS: BP 142/52
[2017-01-30 22:34] VITALS: BP 142/80
--- NOTE | 2017-01-31 02:20 | Event Note ---
Event Note Event Note: At around 10:30 pm patient reported to the nursing staff that she has palpitation, increased coughing and feels anxious, heart rate was up to 130s- 150s. Patient denied chest pain and dizziness. EKG showed atrial fibrillation with HR of 143, QTc 469. troponin = 0.03. She received 2 doses of 10 mg IV cardizem push, one at 11:45 pm and one at 1:30, heart rate remained in 130s. At 2 am we started her on IV cardizem at 2.5 mg/ hour, went up to 5 mg/hour at 2:30 am, HR still in high in 120-130. We have increased cardizem drip to 15 mg/hour. Heart rate remained in 110-130, BP 128/ 70. Attending, Dr. Pritchard was notified. We also talked to Dr. Naranjo on the phone at around 4 am and updated him about the events, will give an extra dose of 20 mg IV cardizem push per his recommendation. Patient's HR went down to 80- 90 right after injection of cardizem, however it went back up to 110-130 a few minutes afterwards. Patient's HR has continued to be in 110-130s. We signed out to the am team to consider amiodarone drip. Patient should not take beta-isabel due to COPD and risk of bronchospasm.
[2017-01-31 07:53] LABS: ABSOLUTE BASOPHIL COUNT 0 /CUMM (0.0-0.2); ABSOLUTE EOSINOPHIL COUNT 0 /CUMM (0.0-0.7); ABSOLUTE GRANULOCYTE CT 18.4 /CUMM (1.4-6.5); ABSOLUTE LYMPH COUNT 1.1 /CUMM (1.2-3.4); ABSOLUTE MONOCYTE COUNT 0.5 /CUMM (0.10-0.60); BASOPHIL % 0 % (0.0-2.0); EOSINOPHIL % 0 % (0-5); GRANULOCYTE % 92.3 % (42.2-75.2); HEMATOCRIT 33.5 % (37-47); MEAN CORPUSCULAR HGB CONC 32.8 G/DL (33.0-37.0); MEAN CORPUSCULAR VOLUME 91.5 FL (81.0-99.0); RED BLOOD CELL CT 3.66 /CUMM (4.20-5.40); WHITE BLOOD CELL COUNT 19.9 /CUMM (4.8-10.8)
--- NOTE | 2017-01-31 08:02 | PN- Housestaff ---
See Addendum Subjective Follow-up For: Pseudomonal pneumonia Marked leukocytosis COPD exacerbation Non-specific ST-T wave abnormality Atrial fibrillation Subjective: Afebrile, converted to A. fib yesterday around 10 PM however hemodynamically stable. She was started on Cardizem drip max dose yesterday however Heartrate this morning still 130s to 140s. Patient is saturating well on 2 L of oxygen. She is complaining of mild palpitation, she denies any worsening of her shortness breath or chest pain. Review of Systems Constitutional: Reports: see HPI. Objective Last 24 Hrs of Vital Signs/I&O Vital Signs Date Time Temp Pulse Resp B/P B/P Pulse O2 O2 Flow FiO2 Mean Ox Delivery Rate 01/31 1040 120 144/60 01/31 1018 124 144/82 01/31 0834 99 Nasal 2.0L Cannula 01/31 0813 98.0 124 18 144/82 98 Nasal 2.0L Cannula 01/31 0423 132 01/31 0130 137 01/31 0000 97 Nasal 2.0L Cannula 01/30 2343 140 142/80 01/30 2234 98.2 77 18 142/80 98 Nasal 2.0L Cannula 01/30 1645 99 Nasal 2.0L Cannula 01/30 1630 98.0 83 18 142/52 97 Nasal 2.0L Cannula 01/30 1600 Nasal 2.0L Cannula Intake & Output 01/31 1600 01/31 0800 01/31 0000 Intake Total 645 300 Output Total 1300 350 Balance -655 -50 Intake, IV 45 Intake, Oral 600 300 Output, Urine 1300 350 Physical Exam General Appearance: Alert, Oriented X3, Cooperative, No Acute Distress HEENT: Atraumatic, PERRLA, EOMI, Mucous Membr. moist/pink Cardiovascular: Normal S1, Normal S2, irregular irregular Lungs: wheezing and diminished air entry over both lungs Abdomen: Normal Bowel Sounds, Soft, No Tenderness Neurological: Normal Speech, Strength at 5/5 X4 Ext Extremities: No Clubbing, No Cyanosis, No Edema Current Medications: Current Medications Sig/Lana Start time Last Medication Dose Route Stop Time Status Admin Acetaminophen 650 MG Q6P PRN 01/25 2215 AC 05/08 PO 1542 Acetaminophen/ 1 TAB Q8P PRN 01/26 0130 AC 01/30 Hydrocodone Bitart PO 2204 Albuterol Sulfate 3 ML EVERY 4 HRS/AWAKE 01/26 0815 AC 01/31 INH 0832 Alprazolam 0.5 MG TID PRN 01/28 0805 AC 01/30 PO 02/04 0804 2204 Arformoterol Tartrate 15 MCG DAILY 01/26 1000 AC 01/30 INH 0817 Ascorbic Acid 500 MG DAILY 01/26 1000 AC 01/31 PO 1018 Aspirin 81 MG DAILY 01/30 1000 AC 01/31 PO 1018 Budesonide 0.5 MG BID 01/26 1000 AC 01/31 INH 0832 Bupropion HCl 200 MG DAILY 01/26 1000 AC 01/31 PO 1018 Ceftazidime 1,000 MG Q12H 01/28 1300 DC 01/30 IV 1256 Ciprofloxacin 250 MG BID 01/30 1435 AC 01/31 PO 02/03 1434 1016 Diltiazem HCl 20 MG ONCE ONE 01/31 0400 DC 01/31 IV PUSH 01/31 0401 0423 Diltiazem HCl 125 MG Q24H 01/31 0200 AC 01/31 Sodium Chloride 100 ML IV 0218 Diltiazem HCl 10 MG ONCE ONE 01/31 0130 DC 01/31 IV PUSH 01/31 0131 0130 Diltiazem HCl 10 MG ONCE ONE 01/30 2345 DC 01/30 IV PUSH 01/30 2346 2343 Diltiazem HCl 180 MG DAILY 01/26 1000 AC 01/31 PO 1041 Docusate Sodium 200 MG AT BEDTIME 01/28 2200 AC 01/30 PO 2203 Dofetilide 250 MCG BID 01/26 0015 AC 01/31 PO 1016 Enoxaparin Sodium 40 MG DAILY 01/26 1000 AC 01/31 SC 1019 Ezetimibe 10 MG DAILY 01/26 1000 AC 01/31 PO 1019 Ferrous Sulfate 325 MG DAILY 01/26 1000 AC 01/31 PO 1018 Folic Acid 1 MG DAILY 01/26 1000 AC 01/31 PO 1018 Furosemide 40 MG BID 01/26 2200 AC 01/31 PO 1018 Guaifenesin 10 ML Q6P PRN 01/28 1200 AC 01/29 PO 1852 Guaifenesin 600 MG DAILY 01/26 1000 AC 01/31 PO 1018 Levothyroxine Sodium 0.1 MG DAILY AC 01/26 0700 AC 01/31 PO 0613 Losartan Potassium 50 MG DAILY 01/26 1743 AC 01/31 PO 1018 Melatonin 3 MG .STK-MED ONE 01/30 2159 DC PO 01/30 220 Melatonin 3 MG AT BEDTIME PRN 01/26 194 AC 01/30 PO 220 Methylprednisolone 40 MG Q12 01/30 1000 DC 01/30 IV 2203 Metoprolol Tartrate 10 MG ONCE ONE 01/31 0345 CAN IV 01/31 0346 Montelukast Sodium 10 MG AT BEDTIME 01/26 2200 AC 01/30 PO 220 Nitroglycerin 0.6 MG DAILY 01/26 1000 AC 01/31 TOP 1019 Omeprazole 40 MG DAILY AC 01/26 0700 AC 01/31 PO 0613 Potassium Chloride 20 MEQ DAILY 01/26 1000 AC 01/31 PO 1018 Pravastatin Sodium 40 MG AT BEDTIME 01/26 2200 AC 01/30 PO 220 Prednisone 60 MG DAILY 01/31 1000 AC PO Roflumilast 500 MCG DAILY 01/26 1000 AC 01/31 PO 1017 Sertraline HCl 200 MG DAILY 01/26 1000 AC 01/31 PO 1019 Sucralfate 1,000 MG 4 TIMES/DAY 01/25 220 AC 01/31 PO 1018 Tiotropium [place] 1 PUF DAILY 01/26 1000 AC 01/31 INH 1016 Trimethobenzamide HCl 200 MG TIDPRN PRN 01/26 0230 AC IM Last 24 Hrs of Lab/Wan Results Last 24 Hrs of Labs/Mics: Laboratory Tests 01/31/17 0620: Magnesium 2.2, Troponin I 0.02, TSH 0.175 L 01/31/17 0620: Sodium Pending, Potassium Pending, Chloride Pending, Carbon Dioxide Pending, Anion Gap Pending, BUN Pending, Creatinine Pending, BUN/Creatinine Ratio Pending , CBC w Diff NO MAN DIFF REQ, RBC 3.66 L, MCV 91.5, MCH 30.0, RDW 15.0 H, MPV 7.0 L, Gran % 92.3 H, Lymphocytes % 5.3 L, Monocytes % 2.4, Eosinophils % 0, Basophils % 0 L, Absolute Granulocytes 18.4 H, Absolute Lymphocytes 1.1 L, Absolute Monocytes 0.5, Absolute Eosinophils 0, Absolute Basophils 0, PUBS MCHC 32.8 L 01/30/17 2306: Troponin I 0.03 Assessment/Plan Assessment: 67 y/o F with PMHx of COPD on 2 L NC, CAD and atrial fibrillation not on anticoagulation who is admitted for community acquired pneumonia. #Community-acquired pneumonia: On day 7 of IV antibiotics, patient was initially on ceftriaxone and doxycycline, she was switched to ceftazidime on day 4 of antibiotic, and switch to ciprofloxacin by mouth yesterday. CT Chest favoring an infectious process ( i.e. CAP). CT Abdomen/Pelvis negative for acute intraabdominal process. Sputum Cx growing Pseudomonas. Patient will need to finish 10-14 days of antibiotic. Because patient is taking Tikosyn as antiarrhythmic cardiology recommended to watch her in telemetry after starting her on macrolide or quinolones, just because complaining of decreased to medication can lead to QT prolongation * We will continue ciprofloxacin, watch for QT prolongation * We will monitor and watch for any QT interval that is greater than 500 or prolonged greater than 20% of baseline. #COPD exacerbation: Currently on 2 L oxygen which is her baseline requirement. * We will taper oxygen if oxygen saturation allow * Switch Solumedrol to oral prednisone 60 mg * Continue arigf-ar-wumdjgbfd roflumilast 500 mcg PO daily. * Continue vesnh-mt-kuicdjfod Spiriva inhaler, Pulmbicort and Brovana nebuliizers. * TRC and nebs. * Continue Mucinex. * Robitussin PRN for cough. #Non-specific T wave abnormality/Nonsustained V-tach EKG with non-specific T wave abnormality. Mild troponin elevation to 0.05 which have downtrended. Echocardiogram results showed mild left ventricle hypertrophy with EF of 60%. She denies chest pain. * Continue to monitor on telemetry as per cardio. #Paroxysmal atrial fibrillation: Patient was in sinus rhythm until yesterday around 22:00 when she developed A. fib. Patient was started on Cardizem drip 15 mg/H, a push of 20 mg was given. The previous Kulwinder did not control the heartrate and she continued to on heartrate of 130s to 140s. Cardiology was consulted, he tried to convert patient back to sinus rhythm using covert, unfortunately it did not work. Patient will need a new drip for which she'll be transferred to ICU. * Continue Cardizem CD 180 mg PO daily and dofetilide 250 mcg PO BID. * Continue Cardizem drip at 15 mg per hour * patient will be transferred to ICU to start him on Amio if approved with cardiology. The plan is to start patient on amiodarone 150 mg push after which we will start patient on amiodarone drip. waiting for cardiology recs * Please contact the daughter before attempting any cardioversion #HTN: * Continue ubuxv-wx-wjdgcrqam Lasix 40 mg PO BID and losartan 50 mg PO daily. #Neck pain: Neck XR with moderate degenerative changes secondary to underlying osteoarthritis. * Continue Vicodin PRN for pain. Diet: Heart healthy DVT PPx: Lovenox and ALPs CODE: FULL Problem List: 1. Leukocytosis 2. COPD (chronic obstructive pulmonary disease) Pain Ratin Pain Location: na Pain Goal: Remain pain free Pain Plan: See A&P Tomorrow's Labs & Rationales: CBC to follow WBCs BEP to follow sodium and potassium
[2017-01-31 08:13] VITALS: BP 144/82
--- NOTE | 2017-01-31 08:17 | PN- Pulmonary ---
Subjective HPI/Critical Care Issues: Patient again is had atrial fibrillation with rapid ventricular response. Mr. statuses remained stable with improved oxygenation. Objective Current Medications: Current Medications Sig/Lana Start time Last Medication Dose Route Stop Time Status Admin Acetaminophen 650 MG Q6P PRN 01/25 2215 AC 05/ PO 1542 Acetaminophen/ 1 TAB Q8P PRN / 0130 AC 01/30 Hydrocodone Bitart PO 2204 Albuterol Sulfate 3 ML EVERY 4 HRS/AWAKE 01/26 0815 AC 01/30 INH 2005 Alprazolam 0.5 MG TID PRN 01/28 0805 AC 01/30 PO 02/04 0804 220 Arformoterol Tartrate 15 MCG DAILY 01/26 1000 AC 01/30 INH 0817 Ascorbic Acid 500 MG DAILY 01/26 1000 AC 01/30 PO 0940 Aspirin 81 MG DAILY 01/30 1000 AC 01/30 PO 0939 Budesonide 0.5 MG BID 01/26 1000 AC 01/30 INH 1645 Bupropion HCl 200 MG DAILY 01/26 1000 AC 01/30 PO 0939 Ceftazidime 1,000 MG Q12H 01/28 1300 DC 01/30 IV 1256 Ciprofloxacin 250 MG BID 01/30 1435 AC 01/30 PO 02/03 1434 1729 Diltiazem HCl 20 MG ONCE ONE 01/31 0400 DC 01/31 IV PUSH 01/31 0401 0423 Diltiazem HCl 125 MG Q24H 01/31 0200 AC 01/31 Sodium Chloride 100 ML IV 0218 Diltiazem HCl 10 MG ONCE ONE 01/31 0130 DC 01/31 IV PUSH 01/31 0131 0130 Diltiazem HCl 10 MG ONCE ONE 01/30 2345 DC 01/30 IV PUSH 01/30 2346 2343 Diltiazem HCl 180 MG DAILY 01/26 1000 AC 01/30 PO 0939 Docusate Sodium 200 MG AT BEDTIME 01/28 2200 AC 05 PO 2203 Dofetilide 250 MCG BID 01/26 0015 AC 01/30 PO 2204 Enoxaparin Sodium 40 MG DAILY 01/26 1000 AC 05 SC 0954 Ezetimibe 10 MG DAILY / 1000 AC 01/30 PO 0939 Ferrous Sulfate 325 MG DAILY 01/26 1000 AC 01/30 PO 0939 Folic Acid 1 MG DAILY 01/26 1000 AC 01/30 PO 0939 Furosemide 40 MG BID 01/26 2200 AC 01/30 PO 2213 Guaifenesin 10 ML Q6P PRN 01/28 1200 AC 01/29 PO 1852 Guaifenesin 600 MG DAILY 01/26 1000 AC 01/30 PO 0939 Levothyroxine Sodium 0.1 MG DAILY AC 01/26 0700 AC 01/31 PO 0613 Losartan Potassium 50 MG DAILY 01/26 1743 AC 01/30 PO 0940 Melatonin 3 MG .STK-MED ONE 01/30 2159 DC PO 01/30 2200 Melatonin 3 MG AT BEDTIME PRN 01/26 1945 AC 01/30 PO 2204 Methylprednisolone 40 MG Q12 01/30 1000 AC 01/30 IV 2203 Methylprednisolone 40 MG Q8 01/26 600 DC 01/30 IV 0600 Metoprolol Tartrate 10 MG ONCE ONE 01/31 0345 CAN IV 01/31 0346 Montelukast Sodium 10 MG AT BEDTIME 01/26 2200 AC 01/30 PO 2203 Nitroglycerin 0.6 MG DAILY 01/26 1000 AC 01/30 TOP 0939 Omeprazole 40 MG DAILY AC 01/26 0700 AC 01/31 PO 0613 Potassium Chloride 20 MEQ DAILY 01/26 1000 AC 01/30 PO 0939 Pravastatin Sodium 40 MG AT BEDTIME 01/26 2200 AC 01/30 PO 2203 Roflumilast 500 MCG DAILY 01/26 1000 AC 01/30 PO 0942 Sertraline HCl 200 MG DAILY 01/26 1000 AC 01/30 PO 0940 Sucralfate 1,000 MG 4 TIMES/DAY 01/25 2200 AC 01/30 PO 2203 Tiotropium [place] 1 PUF DAILY 01/26 1000 AC 01/30 INH 0937 Trimethobenzamide HCl 200 MG TIDPRN PRN 01/26 0230 AC IM Vital Signs & I&O Last 24 Hrs of Vitals and I&O: Vital Signs Date Time Temp Pulse Resp B/P B/P Pulse O2 O2 Flow FiO2 Mean Ox Delivery Rate 01/31 813 98.0 124 18 144/82 98 Nasal 2.0L Cannula 01/31 0423 132 01/31 0130 137 01/31 0000 97 Nasal 2.0L Cannula 01/30 2343 140 142/80 01/30 2234 98.2 77 18 142/80 98 Nasal 2.0L Cannula 01/30 1645 99 Nasal 2.0L Cannula 01/30 1630 98.0 83 18 142/52 97 Nasal 2.0L Cannula 01/30 1600 Nasal 2.0L Cannula 01/30 0940 71 130/58 01/30 0819 97 Nasal 2.0L Cannula Intake & Output 01/31 1600 01/31 0800 01/31 0000 Intake Total 645 300 Output Total 1300 350 Balance -655 -50 Intake, IV 45 Intake, Oral 600 300 Output, Urine 1300 350 Action saturation 2 L 98% exam for chest shows diminished breath sounds are no wheezes cardiac exam shows a regular rhythm Impression/Plan Impression/Plan Impression/Plan: 67-year-old with advanced COPD admitted following colonoscopy with increased shortness breath bronchospasm and marked leukocytosis with left shift. Chest x- ray shows only minor abnormalities. CT scan consistent with community-acquired pneumonia. White count has improved after treatment for pseudomonas pneumonia. Recommendations: Begin oral prednisone. Taper FiO2. Complete course of antibiotics for Pseudomonas pneumonia
[2017-01-31 08:26] LABS: PLATELET COUNT 601 /CUMM (130-400)
[2017-01-31 10:40] VITALS: BP 144/60
--- NOTE | 2017-01-31 11:51 | Transfer of Care Summary ---
Hospital Course Course Hospital Course: See A&P Assessment/Plan: 67 y/o F with PMHx of COPD on 2 L NC, CAD and atrial fibrillation not on anticoagulation because of history of bleeding (was on NSR on admission), who presented c/o nausea, fever and chills and was admitted for community acquired pneumonia. The following issues were addressed since admission: 1.Community-acquired pneumonia: CT Chest favoring an infectious process (i.e. CAP). CT Abdomen/Pelvis negative for acute intraabdominal process. Sputum Cx growing Pseudomonas. Patient will need to finish 10-14 days of antibiotic. Today she is on day 7 of IV antibiotics, patient was initially on ceftriaxone and doxycycline, she was switched to ceftazidime on day 4 of antibiotic, and switch to ciprofloxacin by mouth yesterday. Because patient is taking Tikosyn as antiarrhythmic cardiology recommended to watch her in telemetry after starting her on macrolide or quinolones, just because these 2 medications together can lead to QT prolongation. Yesterday patient developed A. fib after starting ciprofloxacin, however cardiology believed Cipro has nothing to do with A. fib. ########### for next team to do############## * Continue ciprofloxacin, watch for QT prolongation * Monitor and watch for any QT interval that is greater than 500 or prolonged greater than 20% of baseline. 2.Paroxysmal atrial fibrillation: Patient was in sinus rhythm since admission until yesterday around 22:00 when she developed A. fib. Patient was started on Cardizem drip 15 mg/H, a push of 20 mg was given. The previous Kulwinder did not control the heartrate and she continued to on heartrate of 130s to 140s. Cardiology was consulted, he tried to convert patient back to sinus rhythm useing covert, unfortunately it did not work. Cardiology recommended starting patient on amiodarone drip after giving amiodarone push, for this reason patient must be transferred to ICU. ########### for next team to do############## * Continue Cardizem CD 180 mg PO daily and dofetilide 250 mcg PO BID. * Continue Cardizem drip until advised otherwise by cardiology * patient will be transferred to ICU in order to start him on Amio drip, if approved by cardiology. The plan is to start patient on amiodarone 150 mg push after which patient will be on amiodarone drip. waiting for cardiology recs * Please contact the daughter before attempting electrical cardioversion 3.COPD exacerbation: Stable since admission. Currently on 2 L oxygen which is her baseline requirement. This morning we switch her steroids from IV to oral prednisone ########### for next team to do############## * Taper oxygen if oxygen saturation allow * Taper oral prednisone, now she is on prednisone 60 mg * Continue kytwn-ws-ehhnpfeft roflumilast 500 mcg PO daily. * Continue aiija-nv-bspzddmvg Spiriva inhaler, Pulmbicort and Brovana nebuliizers. * Continue TRC and nebs. * Continue Mucinex. * Continue robitussin PRN for cough. 4.Non-specific T wave abnormality/Nonsustained V-tach On admission patient had EKG with non-specific T wave abnormality. Also she had mild troponin elevation to 0.05 which have downtrended. Echocardiogram results showed mild left ventricle hypertrophy with EF of 60%. She denies chest pain. ########### for next team to do############## * Continue to monitor for symptom of a ACS * Continue patient on cardio monitoring 5.HTN: ########### for next team to do############## * Continue cyxer-zq-zhxnrlnqh Lasix 40 mg PO BID and losartan 50 mg PO daily. 6.Neck pain: Neck XR with moderate degenerative changes secondary to underlying osteoarthritis. ########### for next team to do############## * Continue Vicodin PRN for pain. Heart healthy diet DVT PPX Lovenox and ALPs FULL code pneumonia. The following issues were addressed since admission: 1.Community-acquired pneumonia: CT Chest favoring an infectious process (i.e. CAP). CT Abdomen/Pelvis negative for acute intraabdominal process. Sputum Cx growing Pseudomonas. Patient will need to finish 10-14 days of antibiotic. Today she is on day 7 of IV antibiotics, patient was initially on ceftriaxone and doxycycline, she was switched to ceftazidime on day 4 of antibiotic, and switch to ciprofloxacin by mouth yesterday. Because patient is taking Tikosyn as antiarrhythmic cardiology recommended to watch her in telemetry after starting her on macrolide or quinolones, just because these 2 medications together can lead to QT prolongation. Yesterday patient developed A. fib after starting ciprofloxacin, however cardiology believed Cipro has nothing to do with A. fib. ########### for next team to do############## * Continue ciprofloxacin, watch for QT prolongation * Monitor and watch for any QT interval that is greater than 500 or prolonged greater than 20% of baseline. 2.Paroxysmal atrial fibrillation: Patient was in sinus rhythm since admission until yesterday around 22:00 when she developed A. fib. Patient was started on Cardizem drip 15 mg/H, a push of 20 mg was given. The previous Kulwinder did not control the heartrate and she continued to on heartrate of 130s to 140s. Cardiology was consulted, he tried to convert patient back to sinus rhythm useing covert, unfortunately it did not work. Cardiology recommended starting patient on amiodarone drip after giving amiodarone push, for this reason patient must be transferred to ICU. ########### for next team to do############## * Continue Cardizem CD 180 mg PO daily and dofetilide 250 mcg PO BID. * Continue Cardizem drip until advised otherwise by cardiology * Give patient amiodarone push of 150 mg * Start patient on amiodarone drip, the rate should be confirmed with cardiology. * Please contact the daughter before attempting electrical cardioversion 3.COPD exacerbation: Stable since admission. Currently on 2 L oxygen which is her baseline requirement. This morning we switch her steroids from IV to oral prednisone ########### for next team to do############## * Taper oxygen if oxygen saturation allow * Taper oral prednisone, now she is on prednisone 60 mg * Continue psavv-wc-qcifxbjwk roflumilast 500 mcg PO daily. * Continue xmkgq-xt-tohojmmus Spiriva inhaler, Pulmbicort and Brovana nebuliizers. * Continue TRC and nebs. * Continue Mucinex. * Continue robitussin PRN for cough. 4.Non-specific T wave abnormality/Nonsustained V-tach On admission patient had EKG with non-specific T wave abnormality. Also she had mild troponin elevation to 0.05 which have downtrended. Echocardiogram results showed mild left ventricle hypertrophy with EF of 60%. She denies chest pain. ########### for next team to do############## * Continue to monitor for symptom of a ACS * Continue patient on cardio monitoring 5.HTN: ########### for next team to do############## * Continue egkzg-ye-cuefgtqve Lasix 40 mg PO BID and losartan 50 mg PO daily. 6.Neck pain: Neck XR with moderate degenerative changes secondary to underlying osteoarthritis. ########### for next team to do############## * Continue Vicodin PRN for pain. Heart healthy diet DVT PPX Lovenox and ALPs FULL code
--- NOTE | 2017-01-31 17:34 | PN- Cardiology ---
Subjective Subjective: * Patient went into atrial fibrillation last evening with some associated lightheadedness and shortness of breath. IV cardizem improved heart rate somewhat but she still remains tachycardic. Objective Vital Signs and I&Os Vital Signs Date Time Temp Pulse Resp B/P B/P Pulse O2 O2 Flow FiO2 Mean Ox Delivery Rate 01/31 1653 94 Nasal 2.0L Cannula 01/31 1600 953 Nasal 2.0L Cannula 01/31 1040 120 144/60 01/31 1018 124 144/82 01/31 0834 99 Nasal 2.0L Cannula 01/31 0813 98.0 124 18 144/82 98 Nasal 2.0L Cannula 01/31 0800 Nasal 2.0L Cannula 01/31 0423 132 01/31 0130 137 01/31 0000 97 Nasal 2.0L Cannula 01/30 2343 140 142/80 01/30 2234 98.2 77 18 142/80 98 Nasal 2.0L Cannula Intake & Output 01/31 1600 01/31 0800 01/31 0000 01/30 1600 01/30 0800 01/30 0000 Intake Total 720 645 300 480 200 440 Output Total 1000 1300 962 714 3001 1300 Balance -280 -655 -50 80 -900 -860 Intake, IV 120 45 Intake, Oral 600 600 300 480 200 440 Output, Urine 1000 1300 543 729 5533 1300 Physical Exam: General: WD/ WN female in NAD: alert and oriented x 3 NECK: no JVD, no carotid bruit Heart: irregularly irregular No murmur Lungs: no crackles, decreased air movement bilaterally Extremities: No edema Assessment/Plan Assessment/Plan * Tikosyn is not maintaining a sinus rhythm. It is not compatible with Amiodarone. Since this medication is not effective and is somewhat undesireable in the setting of Cipro use and contraindicated with Amiodarone, we will stop this medication. If she remains in A. Fib tomorrow then we can start Amiodarone after the Tikosyn has worn off. Begin IV heparin for stroke prophylaxis. An A. Fib ablation may be needed to control her recurrent A. Fib. * This patient is improving with treatment for her community acquired pneumonia with associated bronchospasm. * No significant chest discomfort. Continue NTG patch at 0.6mg/hr daily as an antianginal as well as to control her blood pressure. 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 This is a region of a prior [place] and does receive collateral flow. Since bleeding remains a problem and she has not had a recent PCI, I think it is prudent to stop Plavix but we will restart aspirin. Fortunately she has no evidence of decompensated CHF. I believe she has less bronchospasm off metoprolol. I am not inclined to restart any beta blockers. * The patient's achiness does not appear to be related to her statin and is becoming somewhat less intense. A prior MRI documented some spinal stenosis. 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 Extra-strength Tylenol was recommended. Continue telemetry? Yes
--- NOTE | 2017-01-31 20:06 | NUR ---
NURSING NOTE: PT REC FROM [address] [place] [address] FOR AMIO GTT. HR IS 120 TO 150, HIGHER WITH AMBULATION. PT COVERTED THIS AM FROM NSR TO RAPID AFIB. PT EREMAINS OF HOME BASELINE O2 OF 2 LITER NC. PT IS INDEPENDENT IN THE ROOM, ABLE TO AMBULATE GEO BATHROOM. NEEDS ASSISTANCE WITH IV POLE. AMIO WAS NOT STARTED R/T CONTRAINDICATION OF OTHER MED THAT WAS GIVEN THIS AM. HEPARIN GTT WAS STARTED AT 1900 AT A RATE OF 18 UNITS/KG/HR. FIRST PTT DUE AT 0100. PT DID HAVE BM AND WAS HEME NEGATIVE.
--- NOTE | 2017-01-31 20:43 | NUR ---
P/OX3, FOLLOWS COMMANDS. C/O LT SIDED CHEST PAIN-NONRADIATING, RATES 2 OUT OF 10 AT PRESENT-REPORTED TO DR. HERNÁNDEZ-NO ORDERS GIVEN AT PRESENT-INSTRUCTED PT TO NOTIFY RN IF PAIN RADIATES AND/OR WORSENS. EXPIRATORY WHEEZES THOUGHOUT BILATERALLY. NO SOB OR RESP DISTRESS NOTED AT PRESENT. PRODUCTIVE COUGH OF WHITE-YELLOW SECREATIONS. SEE FLOW SHEET FOR VS, 02 SATS, I/O'S. MONITOR SHOWS AFIB-HR 90-120'S AT PRESENT. ON CARDIZEM GTT AT 15MG/HR. ON HEPARIN GTT AT 18UNITS/KG/HR-NO EVIDENCE OF BLEEDING NOTED AT PRESENT.ABD SOFT, NONTENDER, NONDISTENDED, POSITIVE BOWEL SOUNDS. OOB TO BR TO VOID. SKIN INTACT
[2017-01-31 23:00] VITALS: BP 124/50
[2017-02-01 00:50] LABS: PTT 72 SEC (25-37)
[2017-02-01 05:46] LABS: HEMATOCRIT 30.1 % (37-47); MEAN CORPUSCULAR HGB CONC 33.3 G/DL (33.0-37.0); MEAN PLATELET VOLUME 7.3 FL (7.4-10.4); PLATELET COUNT 607 /CUMM (130-400); RBC DISTRIBUTION WIDTH 14.7 % (11.5-14.5); RED BLOOD CELL CT 3.34 /CUMM (4.20-5.40); WHITE BLOOD CELL COUNT 18.8 /CUMM (4.8-10.8)
--- NOTE | 2017-02-01 06:30 | NUR ---
PT SLEPT ON AND OFF DURING THE NIGHT. OOB WITH MINIMAL ASSIST{IV POLE} TO BR-GAIT STEADY. NO FURTHER C/O CHEST PAIN OVERNIGHT. REMAINS IN [id number]'S, OCC PVC'S NOTED. BP STABLE THOUGHOUT SHIFT. CARDIZEM GTT REMAINS AT 15MG/HR. HEPARIN GTT REMAINS AT 18 UNITS/KG/HR-NO EVIDENCE OF BLEEDING NOTED THOUGHOUT SHIFT. GOOD URINE OUTPUT FOR SHIFT. EXP WHEEZES CONTINUE
--- NOTE | 2017-02-01 07:20 | PN- Housestaff ---
IRINA ETIENNE,[facility] 02/01/17 0720: Subjective Follow-up For: Pseudomonal pneumonia Marked leukocytosis COPD exacerbation Non-specific ST-T wave abnormality Atrial fibrillation Subjective: Was seen and examined this morning, no overnight events reported by the nurse or the patient, pulse maximum of 124, blood pressure lowest 93/48, highest 131/68. Patient reported to sternal chest pain that lasts for a few hours overnight, denied any diaphoresis, nausea, radiation of the pain. Patient denied chest pain at the moment, shortness of breath. Patient reported productive cough of yellow sputum, denied blood, fever, chills. Patient reported sore throat, denied difficulty swallowing, nausea, vomiting, abdominal pain. Review of Systems Constitutional: Reports: see HPI. Objective Last 24 Hrs of Vital Signs/I&O Vital Signs Date Time Temp Pulse Resp B/P B/P Pulse O2 O2 Flow FiO2 Mean Ox Delivery Rate 02/01 0846 100 136/66 02/01 0811 98 Nasal 2.0L Cannula 02/01 0800 97 Nasal 2.0L Cannula 02/01 0800 97.4 98 20 130/70 97 Nasal 2.0L Cannula 02/01 0400 98 Nasal 2.0L Cannula 02/01 0000 97 Nasal 2.0L Cannula 01/31 2300 96.6 112 33 124/50 97 Nasal 2.0L Cannula 01/31 2000 96 Nasal 2.0L Cannula 01/31 1653 94 Nasal 2.0L Cannula 01/31 1600 953 Nasal 2.0L Cannula Intake & Output 02/01 1600 02/01 0800 02/01 0000 Intake Total 423 809 Output Total 2500 1000 Balance -7 -191 Intake, IV 243 209 Intake, Oral 180 600 Number 0 1 Bowel Movements Output, Urine 2500 1000 Physical Exam General Appearance: Alert, Oriented X3, Cooperative, No Acute Distress Skin: No Rashes, No Breakdown, No Significant Lesion Skin Temp/Moisture Exam: Warm/Dry HEENT: Atraumatic, PERRLA, EOMI, Mucous Membr. moist/pink Neck: Supple, No JVD Cardiovascular: Normal S1, Normal S2, No Murmurs, irregular irregular Lungs: Decrease air entery bilateral prolonged expiratory phase scattered wheeze Abdomen: Normal Bowel Sounds, Soft, No Tenderness Neurological: Normal Gait, Normal Speech, Strength at 5/5 X4 Ext, Normal Tone, Sensation Intact, Cranial Nerves 3-12 NL, Reflexes 2+ Extremities: No Clubbing, No Cyanosis, No Edema, Normal Pulses Assessment/Plan Assessment: Ms. Meehan a 67 year old female with past medical history significant for COPD on 2 L home oxygen, coronary artery disease, paroxysmal atrial fibrillation not on anticoagulation because of history of bleeding, viral meningitis, osteoarthritis who presented to ED with chief complaint of nausea, fever and chills for 1 day. Patient was initially admitted to telemetry floor and on 01/31/17 was transferred to ICU for starting of amiodarone drip. #Community-acquired pneumonia: * Continue ciprofloxacin Day#8 treating Pseudomonas to finish 10-14 days of antibiotic * Patient was initially on ceftriaxone and doxycycline, she was switched to ceftazidime on day 4 of antibiotic, and switch to ciprofloxacin on 01/31 * CT Chest favoring an infectious process (i.e. CAP). Sputum culture growing Pseudomonas * No need to follow QTC given discontinuation of Tikosyn #COPD exacerbation: * Currently on 2 L oxygen which is her baseline requirement * Continue prednisone 602, 502, 402, 502, 202, 102 and then stop * Continue home medication roflumilast 500 mcg PO daily * Continue home medication Spiriva inhaler, Pulmbicort and Brovana nebuliizers * TRC and nebs * Continue Mucinex * Robitussin PRN for cough #Non-specific T wave abnormality/Nonsustained V-tach * On admission, patient had troponin of 0.05 that was trending down, EKG with non-specific T wave abnormality * Echocardiogram results showed mild left ventricle hypertrophy with EF of 60% * Continue nitroglycerin patch 0.5 mg daily #Paroxysmal atrial fibrillation: * Patient has history of paroxysmal atrial fibrillation on anti-configuration due to history of GI bleeding * Patient converted to atrial fibrillation rhythm on 01/30/17 around 22:00 * Cardizem drip 15 mg/h was started for rate control, heart rate lowest 92, highest 124 over the last 24 hours * Heparin drip was started * A trial for chemical conversion A. fib by ibutilide was failed * Due to incompatibility of amiodarone and tikosyn, tikosyn was discontinued on 01/31/17 and amiodarone drip was started on 02/01/70 * Amiodarone drip with amiodarone bolus dose was started on 02/01/17 * Increase Cardizem CD 180 mg to BID * Please contact the daughter before attempting any cardioversion #HTN: * Continue home medication Lasix 40 mg PO BID and losartan 50 mg PO daily #Neck pain: * X-ray of soft tissue neck was obtained * Moderate degenerative disc disease at C5-C6 and to a lesser extent at C6-C7 with disc space narrowing and vertebral endplate sclerosis and spurring and cystic changes seen. Reversal of the normal cervical lordosis is seen, suggesting muscle spasm * Soft tissue calcifications in the upper lateral neck, possibly calcified lymph nodes * Continue Vicodin PRN for pain #Sore Throat * Will start Nystatin susp Diet: Heart healthy DVT PPx: Heparin drip CODE: FULL Problem List: 1. COPD 2. Neck pain 3. CAP (community acquired pneumonia) 4. Hypertension 5. Atrial fibrillation Pain Ratin Pain Location: Sore throat Pain Goal: Pain 4 or less Pain Plan: Moderate pain pathway Tomorrow's Labs & Rationales: CBC, Icu bundle RAYNA GALLEGOS MD 02/01/17 1620: Attending MD Review Statement Attending Statement Attending MD Statement: examined this patient, discuss w/resident/PA/WHITE SUGAR SYRUP OPERATOR, agreed w/resident/PA/WHITE SUGAR SYRUP OPERATOR, reviewed EMR data (avail), amended to note Attending Assessment/Plan: The patient was seen earlier today and discussed with house staff. Appreciate cardiology follow-up. Trial of Amiodarone as per cardiology.
[2017-02-01 08:00] VITALS: BP 130/70
--- NOTE | 2017-02-01 08:14 | PN- Pulmonary ---
Subjective HPI/Critical Care Issues: Respiratory status continues to improve. Patient is waiting for cardioversion Objective Current Medications: Current Medications Sig/Lana Start time Last Medication Dose Route Stop Time Status Admin Acetaminophen 650 MG Q6P PRN 01/25 2215 AC 01/28 PO 1542 Acetaminophen/ 1 TAB Q8P PRN 01/26 0130 AC 01/31 Hydrocodone Bitart PO 1411 Albuterol Sulfate 3 ML EVERY 4 HRS/AWAKE 01/26 0815 AC 02/01 INH 0808 Alprazolam 0.5 MG TID PRN 01/28 0805 AC 02/01 PO 02/04 0804 0202 Amiodarone HCl 150 MG .STK-MED ONE 01/31 1257 DC IV 01/31 1258 Amiodarone HCl/ 150 MG ONCE ONE 01/31 1300 CAN Dextrose IV 01/31 1309 N/A 1 UNIT Amiodarone HCl/ 360 MG Q12H 01/31 1300 DC Dextrose IV N/A 1 UNIT Arformoterol Tartrate 15 MCG DAILY 01/26 1000 AC 01/31 INH 1246 Ascorbic Acid 500 MG DAILY 01/26 1000 AC 01/31 PO 1018 Aspirin 81 MG DAILY 01/30 1000 AC 01/31 PO 1018 Budesonide 0.5 MG BID 01/26 1000 AC 02/01 INH 0808 Bupropion HCl 200 MG DAILY 01/26 1000 AC 01/31 PO 1018 Ciprofloxacin 250 MG BID 01/30 1435 AC 01/31 PO 05 1434 2132 Diltiazem HCl 125 MG Q8H 01/31 1900 AC 02/01 Sodium Chloride 100 ML IV 0504 Diltiazem HCl 125 MG Q24H 01/31 0200 DC 01/31 Sodium Chloride 100 ML IV 01/31 1900 1215 Diltiazem HCl 180 MG DAILY 01/26 1000 AC 01/31 PO 1041 Docusate Sodium 200 MG AT BEDTIME 01/28 2200 AC 01/31 PO 2133 Dofetilide 250 MCG BID 01/26 0015 DC 01/31 PO 1016 Enoxaparin Sodium 40 MG DAILY 01/26 1000 AC 01/31 SC 1019 Ezetimibe 10 MG DAILY 01/26 1000 AC 01/31 PO 1019 Ferrous Sulfate 325 MG DAILY 01/26 1000 AC 01/31 PO 1018 Folic Acid 1 MG DAILY 01/26 1000 AC 01/31 PO 1018 Furosemide 40 MG BID 01/26 2200 AC 01/31 PO 2133 Guaifenesin 10 ML Q6P PRN 01/28 1200 AC 01/29 PO 1852 Guaifenesin 600 MG DAILY 01/26 1000 AC 01/31 PO 1018 Heparin Sodium 25,000 UNIT Q24H 01/31 1730 AC 01/31 (Porcine) IV 1859 Sodium Chloride 500 ML Ibutilide Fumarate 1 MG .STK-MED ONE 01/31 0904 DC IV 01/31 0905 Levothyroxine Sodium 0.1 MG DAILY AC 01/26 0700 AC 02/01 PO 0655 Losartan Potassium 50 MG DAILY 01/26 1743 AC 01/31 PO 1018 Melatonin 3 MG .STK-MED ONE 01/31 2257 DC PO 01/31 2258 Melatonin 3 MG AT BEDTIME PRN 01/26 1945 AC 01/31 PO 2303 Methylprednisolone 40 MG Q12 01/30 1000 DC 01/30 IV 2203 Montelukast Sodium 10 MG AT BEDTIME 01/26 2200 AC 01/31 PO 2134 Nitroglycerin 0.6 MG DAILY 01/26 1000 AC 01/31 TOP 1019 Omeprazole 40 MG DAILY AC 01/26 0700 AC 02/01 PO 0654 Patient Medication 1 ED .STK-MED ONE 01/31 1354 DC Teaching ED 01/31 1355 Potassium Chloride 20 MEQ DAILY 01/26 1000 AC 01/31 PO 1018 Pravastatin Sodium 40 MG AT BEDTIME 01/26 2200 AC 01/31 PO 2133 Prednisone 60 MG DAILY 01/31 1000 AC 01/31 PO 1200 Roflumilast 500 MCG DAILY 01/26 1000 AC 01/31 PO 1017 Sertraline HCl 200 MG DAILY 01/26 1000 AC 01/31 PO 1019 Sucralfate 1,000 MG 4 TIMES/DAY 01/25 2200 AC 01/31 PO 2133 Tiotropium [place] 1 PUF DAILY 01/26 1000 AC 01/31 INH 1016 Trimethobenzamide HCl 200 MG TIDPRN PRN 01/26 0230 AC IM Vital Signs & I&O Last 24 Hrs of Vitals and I&O: Vital Signs Date Time Temp Pulse Resp B/P B/P Pulse O2 O2 Flow FiO2 Mean Ox Delivery Rate 02/01 0811 98 Nasal 2.0L Cannula 02/01 0400 98 Nasal 2.0L Cannula 02/01 0000 97 Nasal 2.0L Cannula 01/31 2300 96.6 112 33 124/50 97 Nasal 2.0L Cannula 01/31 2000 96 Nasal 2.0L Cannula 01/31 1653 94 Nasal 2.0L Cannula 01/31 1600 953 Nasal 2.0L Cannula 01/31 1040 120 144/60 01/31 1018 124 144/82 01/31 0834 99 Nasal 2.0L Cannula Intake & Output 02/01 1600 02/01 0800 02/01 0000 Intake Total 423 809 Output Total 2500 1000 Balance -2077 -191 Intake, IV 243 209 Intake, Oral 180 600 Number 0 1 Bowel Movements Output, Urine 2500 1000 Saturation 2 L 98% exam for chest shows diminished breath sounds there are no wheezes or crackles cardiac exam shows irregular S1 and S2 without murmurs Impression/Plan Impression/Plan Impression/Plan: 67-year-old with advanced COPD admitted following colonoscopy with increased shortness breath bronchospasm and marked leukocytosis with left shift. Chest x- ray shows only minor abnormalities. CT scan consistent with community-acquired pneumonia. White count has improved after treatment for pseudomonas pneumonia. Recommendations: Begin oral prednisone and begin to taper. Taper FiO2. Complete course of antibiotics for Pseudomonas pneumonia. Await cardioversion
--- NOTE | 2017-02-01 09:33 | PN- Cardiology ---
Subjective Subjective: * Patient continues to complain of a cough. Shortness of breath is about the same. * atrial fibrillation with mildly increased heart rate. * Off Tikosyn due to failure to maintain a sinus rhythm and unfavorable interactions with amiodarone and cipro. Objective Vital Signs and I&Os Vital Signs Date Time Temp Pulse Resp B/P B/P Pulse O2 O2 Flow FiO2 Mean Ox Delivery Rate 02/01 0846 100 136/66 02/01 0811 98 Nasal 2.0L Cannula 02/01 0400 98 Nasal 2.0L Cannula 02/01 0000 97 Nasal 2.0L Cannula 01/31 2300 96.6 112 33 124/50 97 Nasal 2.0L Cannula 01/31 2000 96 Nasal 2.0L Cannula 01/31 1653 94 Nasal 2.0L Cannula 01/31 1600 953 Nasal 2.0L Cannula 01/31 1040 120 144/60 01/31 1018 124 144/82 Intake & Output 02/01 1600 02/01 0800 02/01 0000 01/31 1600 01/31 0800 01/31 0000 Intake Total 658 567 9714 645 300 Output Total 2500 1000 1000 1300 350 Balance -2077 -191 245 -655 -50 Intake, IV 243 209 165 45 Intake, Oral 104 850 4183 600 300 Number 0 1 1 Bowel Movements Output, Urine 2500 1000 1000 1300 350 Physical Exam: General: WD/ WN female in NAD: alert and oriented x 3 NECK: no JVD, no carotid bruit Heart: irregularly irregular No murmur Lungs: no crackles, decreased air movement bilaterally Extremities: No edema Assessment/Plan Assessment/Plan * Tikosyn is not maintaining a sinus rhythm. It is not compatible with Amiodarone. Since this medication is not effective and is somewhat undesireable in the setting of Cipro use and contraindicated with Amiodarone, we have stopped this medication. Begin IV Amiodarone with a bolus at Noon today. Continue IV heparin for stroke prophylaxis. An A. Fib ablation may be needed to control her recurrent A. Fib. * This patient is improving with treatment for her pneumonia with associated bronchospasm. * No significant chest discomfort. Continue NTG patch at 0.6mg/hr daily as an antianginal as well as to control her blood pressure. 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 This is a region of a prior NM and does receive collateral flow. I believe she has less bronchospasm off metoprolol. I am not inclined to restart any beta blockers. * The patient's achiness does not appear to be related to her statin and is becoming somewhat less intense. A prior MRI documented some spinal stenosis. 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 Extra-strength Tylenol was recommended. Continue telemetry? Yes
[2017-02-01 16:00] VITALS: BP 110/60
[2017-02-01 17:10] LABS: PTT 58 SEC (25-37)
--- NOTE | 2017-02-01 20:57 | NUR ---
RECEIVED PT AWAKE AND ORIENTED, HR AFIB RATE IN 100'S, SBP MANUALLY 118/72, NO C/O OF CHEST PAIN AT THIS TIME. ON 2LNC SAT 96% LUNGS WITH WHEEZING AND RHONCHI PC WITH THICK YELLOW SPUTUM, EXERTIONAL SOB NOTED. PT ON CARDIZEM DRIP AT 15MG/HR, AMIODARONE AT 0.5MG/HR=16.7ML/HR AND HEPARIN DRIP AT 20UNITS/KG/HR=24.2ML/HR NEXT PTT AT 2300. DISCUSSED POC WITH PATIENT WHO VERBALIZED UNDERSTANDING.
[2017-02-02] VITALS: BP 112/68
[2017-02-02 00:26] LABS: PTT 110 SEC (25-37)
--- NOTE | 2017-02-02 03:07 | NUR ---
PT HR 80'S TO 90'S SINCE 2199 PO DARYA. NOTIFIED MD RANGEL SEXTON. PER DECREASE CARDIZEM DRIP FROM 15MG/HR TO 12.5MG/HR, SBP 118'S. WILL CONTINUE TO MONITOR.
[2017-02-02 04:36] LABS: HEMATOCRIT 30.4 % (37-47); MEAN CORPUSCULAR HGB 29.5 PG (27.0-31.0); MEAN CORPUSCULAR HGB CONC 32.4 G/DL (33.0-37.0); MEAN CORPUSCULAR VOLUME 91.1 FL (81.0-99.0); PLATELET COUNT 620 /CUMM (130-400); RBC DISTRIBUTION WIDTH 14.6 % (11.5-14.5); RED BLOOD CELL CT 3.34 /CUMM (4.20-5.40); WHITE BLOOD CELL COUNT 19.5 /CUMM (4.8-10.8)
--- NOTE | 2017-02-02 06:44 | NUR ---
PT HR REMAINED IN 80'S TO 90'S AND SBP IN 112'S TO 120'S, NOTIFIED MD RANGEL CUNNINGHAM AND ORDER PLACED TO TITRATE CARDIZEM DRIP FROM 12.5MG/HR TO 10MG/HR
--- NOTE | 2017-02-02 07:11 | PN- Housestaff ---
CACHORRO ETIENNE,[facility] 02/02/17 0711: Subjective Follow-up For: Pseudomonal pneumonia Marked leukocytosis COPD exacerbation Non-specific ST-T wave abnormality Atrial fibrillation Tele-Events Since Last Visit: Continues to be in A.Fib. Subjective: Ms Escobar was seen and examined this morning. Resting comfortably in bed. Patient continues to express fatigu woing to multiple interruptions overnight. She states that she feels that her heart rate is better controlled. She does endorse dyspnea. Patient continues to be on oxygen by nasal cannula. Does report subjective cough. She also continues to experience oral thrush. Cough productive of yellow and clear sputum. She denies any fever, chills, nausea, vomiting Review of Systems Constitutional: Reports: see HPI. Objective Last 24 Hrs of Vital Signs/I&O Vital Signs Date Time Temp Pulse Resp B/P B/P Pulse O2 O2 Flow FiO2 Mean Ox Delivery Rate 02/02 0828 98 Nasal 2.0L Cannula 02/02 0400 98 Nasal 2.0L Cannula 02/02 0005 104 106/66 02/02 0000 97.7 114 21 112/68 98 Nasal 2.0L Cannula 02/02 0000 98 Nasal 2.0L Cannula 02/01 2212 106 25 121/72 02/01 2000 96 Nasal 2.0L Cannula 02/01 1835 98 Nasal 2.0L Cannula 02/01 1600 98 Nasal 2.0L Cannula 02/01 1600 98.0 88 20 110/60 98 Nasal 2.0L Cannula 02/01 1200 88 110/70 02/01 1200 88 108/80 Intake & Output 02/02 1600 02/02 0800 02/02 0000 Intake Total 1136.7 1072.8 Output Total 2500 700 Balance -1363.3 372.8 Intake, IV 416.7 272.8 Intake, Oral 720 800 Number 0 0 Bowel Movements Output, Urine 2500 700 Patient 60.5 kg Weight Physical Exam General Appearance: Alert, Oriented X3, Cooperative HEENT: Mucous Membr. moist/pink, Oral Thrush Present Cardiovascular: Normal S1, Normal S2, Irregular rate and rhythm Lungs: Expiratory rhonchi. Right> Left Abdomen: Normal Bowel Sounds, Soft, No Tenderness Neurological: Normal Speech Current Medications: Current Medications Sig/Lana Start time Last Medication Dose Route Stop Time Status Admin Acetaminophen 650 MG Q6P PRN 01/25 2215 AC 01/28 PO 1542 Acetaminophen/ 1 TAB Q6 02/01 2359 AC 02/02 Hydrocodone Bitart PO 0616 Acetaminophen/ 1 TAB Q8P PRN 01/26 0130 DC 02/01 Hydrocodone Bitart PO 1823 Albuterol Sulfate 3 ML EVERY 4 HRS/AWAKE 01/26 0815 AC 02/02 INH 0828 Alprazolam 0.5 MG TID PRN 01/28 0805 AC 02/02 PO 02/04 0804 0616 Amiodarone HCl/ 360 MG Q12H 02/01 1800 AC 02/02 Dextrose IV 0005 N/A 1 UNIT Amiodarone HCl/ 360 MG 1200 02/01 1200 DC 02/01 Dextrose IV 02/01 1759 1200 N/A 1 UNIT Amiodarone HCl/ 150 MG 1200 ONE 02/01 1200 DC 02/01 Dextrose IV 02/01 1209 1200 N/A 1 UNIT Amiodarone HCl/ 150 MG ONCE ONE 02/01 1045 DC Dextrose IV 02/01 1054 N/A 1 UNIT Arformoterol Tartrate 15 MCG DAILY 01/26 1000 AC 02/01 INH 1150 Ascorbic Acid 500 MG DAILY 01/26 1000 AC 02/01 PO 0846 Aspirin 81 MG DAILY 01/30 1000 AC 02/01 PO 0844 Benzocaine/Menthol 1 GEETHA Q2P PRN 02/02 0430 DC PO Budesonide 0.5 MG BID 01/26 1000 AC 02/02 INH 0828 Bupropion HCl 200 MG DAILY 01/26 1000 AC 02/01 PO 0845 Ciprofloxacin 250 MG BID 01/30 1435 AC 02/01 PO 02/03 1434 2211 Diltiazem HCl 180 MG BID 02/01 2200 AC 02/01 PO 2212 Diltiazem HCl 125 MG Q8H 01/31 1900 AC 02/02 Sodium Chloride 100 ML IV 0000 Diltiazem HCl 180 MG DAILY 01/26 1000 DC 02/01 PO 0849 Docusate Sodium 200 MG AT BEDTIME 01/28 2200 AC 02/01 PO 2212 Ezetimibe 10 MG DAILY 01/26 1000 AC 02/01 PO 0846 Ferrous Sulfate 325 MG DAILY 01/26 1000 AC 02/01 PO 0846 Folic Acid 1 MG DAILY 01/26 1000 AC 02/01 PO 0845 Furosemide 40 MG 7:30 AM, & 4:30 PM 02/01 1630 AC 02/02 PO 0840 Guaifenesin 10 ML Q6P PRN 01/28 1200 AC 01/29 PO 1852 Guaifenesin 600 MG DAILY 01/26 1000 AC 02/01 PO 0847 Heparin Sodium 2,420 UNIT ONE ONE 02/01 1800 DC 02/01 (Porcine) IV 02/01 1801 1823 Heparin Sodium 25,000 UNIT Q24H 01/31 1730 AC 02/01 (Porcine) IV 1829 Sodium Chloride 500 ML Levothyroxine Sodium 0.1 MG DAILY AC 01/26 0700 AC 02/02 PO 0617 Lidocaine/Diphenhydr/ 10 ML Q4-6 PRN PRN 02/02 1000 AC Alum/Mg/Simeth PO Losartan Potassium 50 MG DAILY 01/26 1743 AC 02/01 PO 0846 Melatonin 3 MG .STK-MED ONE 02/02 0113 DC PO 02/02 0114 Melatonin 3 MG AT BEDTIME PRN 01/26 1945 AC 02/02 PO 0113 Montelukast Sodium 10 MG AT BEDTIME 01/26 2200 AC 02/01 PO 2211 Nitroglycerin 0.6 MG DAILY 01/26 1000 AC 02/01 TOP 0846 Nystatin 5 ML 4 TIMES/DAY 02/01 1400 AC 02/02 PO 0623 Omeprazole 40 MG DAILY AC 01/26 0700 AC 02/02 PO 0616 Polyethylene Glycol 17 GM DAILY 02/02 1000 AC PO Potassium Chloride 20 MEQ DAILY 01/26 1000 AC 02/01 PO 0846 Pravastatin Sodium 40 MG AT BEDTIME 01/26 2200 AC 02/01 PO 2211 Prednisone 50 MG DAILY 02/02 1000 AC PO Prednisone 60 MG DAILY 01/31 1000 DC 02/01 PO 0847 Roflumilast 500 MCG DAILY 01/26 1000 AC 02/01 PO 0849 Sertraline HCl 200 MG DAILY 01/26 1000 AC 02/01 PO 0845 Sucralfate 1,000 MG 4 TIMES/DAY 01/25 2200 AC 02/01 PO 2211 Tiotropium [place] 1 PUF DAILY 01/26 1000 AC 01/31 INH 1016 Trimethobenzamide HCl 200 MG TIDPRN PRN 01/26 0230 AC IM Last 24 Hrs of Lab/Wan Results Last 24 Hrs of Labs/Mics: Laboratory Tests 02/02/17 0745: APTT 79 H 02/02/17 0421: Anion Gap 8, Estimated GFR > 60, Glucose 83, Calcium 9.0, Phosphorus 3.5, Magnesium 2.1, Total Bilirubin 0.2, AST 18, ALT 52, Albumin 2.9 L, CBC w Diff MAN DIFF ORDERED, RBC 3.34 L, MCV 91.1, MCH 29.5, RDW 14.6 H, MPV 7.0 L, Segmented Neutrophils 77 H, Lymphocytes 17 L, Monocytes 6, Platelet Estimate INCREASED, Hypochromic-Microcytic 2+, Anisocytosis 1+, PUBS MCHC 32.4 L 02/01/17 2306: APTT 110 *H 02/01/17 1600: APTT 58 H Microbiology 02/02 947 LOWER RESP: Respiratory Culture - ORD 02/02 947 LOWER RESP: Gram Stain - ORD Assessment/Plan Assessment: Ms. Meehan a 67 year old female with past medical history significant for COPD on 2 L home oxygen, coronary artery disease, paroxysmal atrial fibrillation not on anticoagulation because of history of bleeding, viral meningitis, osteoarthritis who presented to ED with chief complaint of nausea, fever and chills for 1 day. Patient was initially admitted to telemetry floor and on 01/31/17 was transferred to ICU for starting of amiodarone drip. Patiet can be transferred back to Telemetry. #Community-acquired pneumonia: * Continue ciprofloxacin Day#9 treating Pseudomonas to finish 10-14 days of antibiotic * Patient was initially on ceftriaxone and doxycycline, she was switched to ceftazidime on day 4 of antibiotic, and switch to ciprofloxacin on 01/31 * CT Chest favoring an infectious process (i.e. CAP). Sputum culture growing Pseudomonas * No need to follow QTC given discontinuation of Tikosyn #COPD exacerbation: * Currently on 2 L oxygen which is her baseline requirement * Continue prednisone 602, 502, 402, 502, 202, 102 and then stop * Continue home medication roflumilast 500 mcg PO daily * Continue home medication Spiriva inhaler, Pulmbicort and Brovana nebuliizers * TRC and nebs * Continue Mucinex * Robitussin PRN for cough #Non-specific T wave abnormality/Nonsustained V-tach * On admission, patient had troponin of 0.05 that was trending down, EKG with non-specific T wave abnormality * Echocardiogram results showed mild left ventricle hypertrophy with EF of 60% * Continue nitroglycerin patch 0.5 mg daily #Paroxysmal atrial fibrillation: * Patient has history of paroxysmal atrial fibrillation on anti-configuration due to history of GI bleeding * Patient converted to atrial fibrillation rhythm on 01/30/17 around 22:00 * Cardizem drip 15 mg/h was started for rate control, heart rate lowest 92, highest 124 over the last 24 hours, discontinued Cardizem drip today. * Heparin drip was started, discontinue heparin drip today. * A trial for chemical conversion A. fib by ibutilide was failed * Due to incompatibility of amiodarone and tikosyn, tikosyn was discontinued on 01/31/17 and amiodarone drip was started on 02/01/70 * Amiodarone drip with amiodarone bolus dose was started on 02/01/17, discontinued amiodarone drip today. We have began oral amiodarone 400 3 times a day. * Continue Cardizem CD 180 mg to BID, if patient continues to be inadequately rate controlled consider increasing by mouth Cardizem dose. * Please contact the daughter before attempting any cardioversion #HTN: * Continue home medication Lasix 40 mg PO BID and losartan 50 mg PO daily #Neck pain: * X-ray of soft tissue neck was obtained * Moderate degenerative disc disease at C5-C6 and to a lesser extent at C6-C7 with disc space narrowing and vertebral endplate sclerosis and spurring and cystic changes seen. Reversal of the normal cervical lordosis is seen, suggesting muscle spasm * Soft tissue calcifications in the upper lateral neck, possibly calcified lymph nodes * Continue Vicodin PRN for pain #Sore Throat * Will Continue Nystatin suspension Diet: Heart healthy DVT PPx: Xarelto CODE: FULL Problem List: 1. COPD 2. CAP (community acquired pneumonia) 3. Atrial fibrillation 4. Hyponatremia 5. COPD (chronic obstructive pulmonary disease) Pain Ratin Pain Location: No pain reported Pain Goal: Remain pain free Pain Plan: Moderate pain pathway Tomorrow's Labs & Rationales: CBC ICU Bundle RAYNA GALLEGOS MD 02/02/171958: Attending Review Statement Attending Statement Attending Statement: examined this patient, discuss w/resident/PA/COMPUTATIONAL GENETICIST, agreed w/resident/PA/COMPUTATIONAL GENETICIST, reviewed EMR data (avail), discussed with nursing, amended to note Attending Assessment/Plan: The patient was seen and discussed with house staff. Agree with plan of care. Will resend sputum for C&S (is yellow per patient), follow-up WBC which is mildly increased above yesterday. Magic Mouth Wash for mouth pain due to thrush. Cardiology input appreciated and transferred back to telemetry.
[2017-02-02 08:00] VITALS: BP 104/63
[2017-02-02 08:35] LABS: PTT 79 SEC (25-37)
--- NOTE | 2017-02-02 10:51 | PN- Cardiology ---
Subjective Subjective: The patient is fairly comfortable. She is not having any specific complaints. She remains in atrial fibrillation with a rate around 100. She is now on Cardizem and amiodarone and heparin drips. She has also been started on by mouth Cardizem. Her respiratory status is slowly improving. She is still on antibiotics and intensive respiratory therapy. Objective Vital Signs and I&Os Vital Signs Date Time Temp Pulse Resp B/P B/P Pulse O2 O2 Flow FiO2 Mean Ox Delivery Rate 02/02 0828 98 Nasal 2.0L Cannula 02/02 0400 98 Nasal 2.0L Cannula 02/02 0005 104 106/66 02/02 0000 97.7 114 21 112/68 98 Nasal 2.0L Cannula 02/02 0000 98 Nasal 2.0L Cannula 02/01 2212 106 25 121/72 02/01 2000 96 Nasal 2.0L Cannula 02/01 1835 98 Nasal 2.0L Cannula 02/01 1600 98 Nasal 2.0L Cannula 02/01 1600 98.0 88 20 110/60 98 Nasal 2.0L Cannula 02/01 1200 88 110/70 02/01 1200 88 108/80 Intake & Output 02/02 1600 02/02 0800 02/02 0000 02/01 1600 02/01 0800 02/01 0000 Intake Total 1136.7 1072.8 1276 423 809 Output Total 2500 700 1500 2500 1000 Balance -1363.3 372.8 -224 -2077 -191 Intake, IV 416.7 272.8 516 243 209 Intake, Oral 720 800 760 180 600 Number 0 0 0 1 Bowel Movements Output, Urine 2500 700 1500 2500 1000 Patient 133 lb Weight Physical Exam: She is in no distress HEENT exam is normal Chest reveals diffuse rhonchi and some coarse rales Heart reveals irregular rhythm, normal rate, no murmurs Extremities reveal no edema and pulses are present Current Medications: Current Medications Sig/Lana Start time Last Medication Dose Route Stop Time Status Admin Acetaminophen 650 MG Q6P PRN 01/25 2215 AC 01/28 PO 1542 Acetaminophen/ 1 TAB Q6 02/01 2359 AC 02/02 Hydrocodone Bitart PO 0616 Acetaminophen/ 1 TAB Q8P PRN 01/26 0130 DC 02/01 Hydrocodone Bitart PO 1823 Albuterol Sulfate 3 ML EVERY 4 HRS/AWAKE 01/26 0815 AC 05/13 INH 0828 Alprazolam 0.5 MG TID PRN 01/28 0805 AC 02/02 PO 02/04 0804 0616 Amiodarone HCl/ 360 MG Q12H 02/01 1800 AC 02/02 Dextrose IV 0005 N/A 1 UNIT Amiodarone HCl/ 360 MG 1200 05 1200 DC 05 Dextrose IV 05 1759 1200 N/A 1 UNIT Amiodarone HCl/ 150 MG 1200 ONE 02/01 1200 DC 02/01 Dextrose IV 05 1209 1200 N/A 1 UNIT Arformoterol Tartrate 15 MCG DAILY 01/26 1000 AC 02/01 INH 1150 Ascorbic Acid 500 MG DAILY 01/26 1000 AC 02/01 PO 0846 Aspirin 81 MG DAILY 01/30 1000 AC 02/01 PO 0844 Benzocaine/Menthol 1 GEETHA Q2P PRN 02/02 0430 DC PO Budesonide 0.5 MG BID 01/26 1000 AC 02/02 INH 0828 Bupropion HCl 200 MG DAILY 01/26 1000 AC 02/01 PO 0845 Ciprofloxacin 250 MG BID 01/30 1435 AC 02/01 PO 02/03 1434 2211 Diltiazem HCl 180 MG BID 02/01 2200 AC 02/01 PO 2212 Diltiazem HCl 125 MG Q8H 01/31 1900 AC 02/02 Sodium Chloride 100 ML IV 0000 Diltiazem HCl 180 MG DAILY 01/26 1000 DC 02/01 PO 0849 Docusate Sodium 200 MG AT BEDTIME 01/28 2200 AC 02/01 PO 2212 Ezetimibe 10 MG DAILY 01/26 1000 AC 02/01 PO 0846 Ferrous Sulfate 325 MG DAILY 01/26 1000 AC 02/01 PO 0846 Folic Acid 1 MG DAILY 01/26 1000 AC 02/01 PO 0845 Furosemide 40 MG 7:30 AM, & 4:30 PM 02/01 1630 AC 02/02 PO 0840 Guaifenesin 10 ML Q6P PRN 01/28 1200 AC 01/29 PO 1852 Guaifenesin 600 MG DAILY 01/26 1000 AC 02/01 PO 0847 Heparin Sodium 2,420 UNIT ONE ONE 02/01 1800 DC 02/01 (Porcine) IV 02/01 1801 1823 Heparin Sodium 25,000 UNIT Q24H 01/31 1730 AC 02/01 (Porcine) IV 1829 Sodium Chloride 500 ML Levothyroxine Sodium 0.1 MG DAILY AC 01/26 0700 AC 02/02 PO 0617 Lidocaine/Diphenhydr/ 10 ML Q4-6 PRN PRN 02/02 1000 AC Alum/Mg/Simeth PO Losartan Potassium 50 MG DAILY 01/26 1743 AC 02/01 PO 0846 Melatonin 3 MG .STK-MED ONE 02/02 0113 DC PO 02/02 0114 Melatonin 3 MG AT BEDTIME PRN 01/26 1945 AC 02/02 PO 0113 Montelukast Sodium 10 MG AT BEDTIME 01/26 2200 AC 02/01 PO 2211 Nitroglycerin 0.6 MG DAILY 01/26 1000 AC 02/01 TOP 0846 Nystatin 5 ML 4 TIMES/DAY 02/01 1400 AC 02/02 PO 0623 Omeprazole 40 MG DAILY AC 01/26 0700 AC 02/02 PO 0616 Phosphate 250 MG ONCE ONE 02/02 1030 DC PO 02/02 1031 Polyethylene Glycol 17 GM DAILY 02/02 1000 AC PO Potassium Chloride 20 MEQ DAILY 01/26 1000 AC 02/01 PO 0846 Pravastatin Sodium 40 MG AT BEDTIME 01/26 2200 AC 02/01 PO 2211 Prednisone 50 MG DAILY 02/02 1000 AC PO Prednisone 60 MG DAILY 01/31 1000 DC 02/01 PO 0847 Roflumilast 500 MCG DAILY 01/26 1000 AC 02/01 PO 0849 Sertraline HCl 200 MG DAILY 01/26 1000 AC 02/01 PO 0845 Sucralfate 1,000 MG 4 TIMES/DAY 01/25 2200 AC 02/01 PO 2211 Tiotropium [place] 1 PUF DAILY 01/26 1000 AC 01/31 INH 1016 Trimethobenzamide HCl 200 MG TIDPRN PRN 01/26 0230 AC IM Results Last 48 Hrs of Labs/Mics: Laboratory Tests 02/02/17 0745: APTT 79 H 02/02/17 0421: Anion Gap 8, Estimated GFR > 60, Glucose 83, Calcium 9.0, Phosphorus 3.5, Magnesium 2.1, Total Bilirubin 0.2, AST 18, ALT 52, Albumin 2.9 L, CBC w Diff MAN DIFF ORDERED, RBC 3.34 L, MCV 91.1, MCH 29.5, RDW 14.6 H, MPV 7.0 L, Segmented Neutrophils 77 H, Lymphocytes 17 L, Monocytes 6, Platelet Estimate INCREASED, Hypochromic-Microcytic 2+, Anisocytosis 1+, PUBS MCHC 32.4 L 02/01/17 2306: APTT 110 *H 02/01/17 1600: APTT 58 H 02/01/17 0408: Anion Gap 10, Estimated GFR > 60, Glucose 97, Calcium 8.8, Phosphorus 4.0, Magnesium 2.1, Total Bilirubin 0.2, AST 16, ALT 55 H, Albumin 3.1 L, CBC w Diff MAN DIFF ORDERED, RBC 3.34 L, MCV 90.0, MCH 30.0, RDW 14.7 H, MPV 7.3 L, Segmented Neutrophils 92 H, Band Neutrophils 1, Lymphocytes 4 L, Monocytes 3, Platelet Estimate INCREASED, Polychromasia 1+, Hypochromic-Microcytic 1+, PUBS MCHC 33.3 02/01/17 0024: APTT 72 H Assessment/Plan Assessment/Plan The patient's atrial fibrillation is better rate controlled. I recommend converting IV amiodarone to by mouth amiodarone load at 400 mg 3 times daily. I recommend tapering off IV Cardizem and adjusting by mouth Cardizem upwards for rate control. Amiodarone will also help with rate control. I recommend converting IV heparin to oral anticoagulation with Eliquis. I recommend loading with amiodarone adequately before any consideration for cardioversion. Continue telemetry? Yes
--- NOTE | 2017-02-02 11:38 | Event Note ---
Event Note Event Note: Regarding po anticoagulation, patient had history of paroxysmal A.fib and was given po eliquis 1YA. However, she had Rt. hip hematoma after getting eliquis. She stated that she was managed conservatively at [facility] at that time, and eliquis was discontinued (No record available from [facility]). After discussion with the patient/Dr. Garcia (cardiology), we'll start po xarelto instead of eliquis from [facility] and monitor closely. Niki Lindsay PGY 4 IM/PM
--- NOTE | 2017-02-02 13:23 | NUR ---
PT IS ALERT AND ORIENTED. MONITOR IS AFIB RATE 70-90. SHE HAS BEEN STARTED ON ORAL AMIO AND HER AMIO DRIP WELL HER CARDIZEM DRIP AND HEPARIN DRIP HAVE BEEN D/C/D. SHE WILL START ON ZARELTO TONIGHT. SHE WAS INITIALLY ORDERED ELOQUIS HOWEVER SHE STATED SHE HAD DEVELOPED A HEMATOMA ON HER HIP WHILE ON ELOQUIS. DR. DERAS AND PHARMACY NOTIFIED AND SHE WILL START THE ZARELTO. SHE REMAINS ON N/C AT 2 LITERS, HAS A CONGESTED COUGHT AND WHEEZING THROUGHOUT . SHE IS OOB WITH QUIDANCE OF ONE. SHE REPORTS MILD PAIN( CHRONIC) AND ANXIETY THAT IS WELL CONTROLLED ON XANAX AND VICODAN. SHE DIURESES WELL AFTER HER PO LASIX. SHE IS WAITING FOR A BED ON THE TELEMETRY FLOOR.
--- NOTE | 2017-02-02 15:19 | NUR ---
REPORT CALLED TO [facility]. PT STABLE FOR TRANSFER.
[2017-02-02 16:13] VITALS: BP 125/85
--- NOTE | 2017-02-02 16:24 | PN- CRCU ---
Subjective HPI/Critical Care Issues: The patient is awake and alert. She remains on an amiodarone drip. She is hemodynamically stable. She denies increased shortness of breath, cough, chest congestion or sputum production. Overall, she is feeling improved and denies any new complaints today. Objective Current Medications: Current Medications Sig/Lana Start time Last Medication Dose Route Stop Time Status Admin Acetaminophen 650 MG Q6P PRN 01/25 2215 AC 01/28 PO 1542 Acetaminophen/ 1 TAB Q6 02/01 2359 AC 02/02 Hydrocodone Bitart PO 1213 Acetaminophen/ 1 TAB Q8P PRN 01/26 0130 DC 02/01 Hydrocodone Bitart PO 1823 Albuterol Sulfate 3 ML EVERY 4 HRS/AWAKE 01/26 0815 AC 02/02 INH 1552 Alprazolam 0.5 MG TID PRN 01/28 0805 AC 02/02 PO 02/04 0804 1212 Amiodarone HCl 400 MG TID 02/02 1101 AC 02/02 PO 1213 Amiodarone HCl/ 360 MG Q12H 02/01 1800 DC 02/02 Dextrose IV 0005 N/A 1 UNIT Amiodarone HCl/ 360 MG 1200 02/01 1200 DC 02/01 Dextrose IV 02/01 1759 1200 N/A 1 UNIT Apixaban 5 MG BID 02/02 2200 CAN PO Arformoterol Tartrate 15 MCG DAILY 01/26 1000 AC 02/02 INH 1245 Ascorbic Acid 500 MG DAILY 01/26 1000 AC 02/02 PO 1145 Aspirin 81 MG DAILY 01/30 1000 AC 02/02 PO 1143 Benzocaine/Menthol 1 GEETHA Q2P PRN 02/02 0430 DC PO Budesonide 0.5 MG BID 01/26 1000 AC 02/02 INH 1552 Bupropion HCl 200 MG DAILY 01/26 1000 AC 02/02 PO 1144 Ciprofloxacin 250 MG BID 01/30 1435 AC 02/02 PO 02/03 1434 1213 Diltiazem HCl 180 MG BID 02/01 2200 AC 02/02 PO 1145 Diltiazem HCl 125 MG Q8H 01/31 1900 DC 02/02 Sodium Chloride 100 ML IV 0000 Docusate Sodium 200 MG AT BEDTIME 01/28 2200 AC 02/01 PO 2212 Ezetimibe 10 MG DAILY 01/26 1000 AC 02/02 PO 1145 Ferrous Sulfate 325 MG DAILY 05/06 1000 AC 02/02 PO 1147 Folic Acid 1 MG DAILY 01/26 1000 AC 02/02 PO 1149 Furosemide 40 MG 7:30 AM, & 4:30 PM 02/01 1630 AC 02/02 PO 0840 Guaifenesin 10 ML Q6P PRN 01/28 1200 AC 01/29 PO 1852 Guaifenesin 600 MG DAILY 01/26 1000 AC 02/02 PO 1146 Heparin Sodium 2,420 UNIT ONE ONE 02/01 1800 DC 02/01 (Porcine) IV 02/01 1801 1823 Heparin Sodium 25,000 UNIT Q24H 01/31 1730 DC 02/01 (Porcine) IV 1829 Sodium Chloride 500 ML Levothyroxine Sodium 0.1 MG DAILY AC 01/26 0700 AC 02/02 PO 0617 Lidocaine/Diphenhydr/ 10 ML Q4-6 PRN PRN 02/02 1000 AC Alum/Mg/Simeth PO Losartan Potassium 50 MG DAILY 01/26 1743 AC 02/02 PO 1146 Melatonin 3 MG .STK-MED ONE 02/02 0113 DC PO 02/02 0114 Melatonin 3 MG AT BEDTIME PRN 01/26 1945 AC 02/02 PO 0113 Montelukast Sodium 10 MG AT BEDTIME 01/26 2200 AC 02/01 PO 2211 Nitroglycerin 0.6 MG DAILY 01/26 1000 AC 02/02 TOP 1221 Nystatin 5 ML 4 TIMES/DAY 02/01 1400 AC 02/02 PO 1146 Omeprazole 40 MG DAILY AC 01/26 0700 AC 02/02 PO 0616 Phosphate 250 MG ONCE ONE 02/02 1030 DC 02/02 PO 02/02 1031 1514 Polyethylene Glycol 17 GM DAILY 02/02 1000 AC 02/02 PO 1147 Potassium Chloride 20 MEQ DAILY 01/26 1000 AC 02/02 PO 1147 Pravastatin Sodium 40 MG AT BEDTIME 01/26 2200 AC 02/01 PO 2211 Prednisone 50 MG DAILY 02/02 1000 AC 02/02 PO 1144 Rivaroxaban 20 MG 1700 02/02 1700 AC PO Roflumilast 500 MCG DAILY 01/26 1000 AC 02/02 PO 1150 Sertraline HCl 200 MG DAILY 01/26 1000 AC 02/02 PO 1000 Sucralfate 1,000 MG 4 TIMES/DAY 01/25 2200 AC 02/02 PO 1515 Tiotropium [place] 1 PUF DAILY 01/26 1000 AC 02/02 INH 1149 Trimethobenzamide HCl 200 MG TIDPRN PRN 01/26 0230 AC IM Vital Signs & I&O Last 24 Hrs of Vitals and I&O: Vital Signs Date Time Temp Pulse Resp B/P B/P Pulse O2 O2 Flow FiO2 Mean Ox Delivery Rate 02/02 1556 96 Nasal 2.0L Cannula 02/02 1213 80 110/70 02/02 1146 80 110/80 02/02 1145 80 110/70 02/02 0828 98 Nasal 2.0L Cannula 02/02 0800 97 Nasal 2.0L Cannula 02/02 0800 98.0 84 16 104/63 98 Nasal 2.0L Cannula 02/02 0400 98 Nasal 2.0L Cannula 02/02 0005 104 106/66 02/02 0000 97.7 114 21 112/68 98 Nasal 2.0L Cannula 02/02 0000 98 Nasal 2.0L Cannula 02/01 2212 106 25 121/72 02/01 2000 96 Nasal 2.0L Cannula 02/01 1835 98 Nasal 2.0L Cannula Intake & Output 02/02 1600 02/02 0800 02/02 0000 Intake Total 1136.7 1072.8 Output Total 2500 700 Balance -1363.3 372.8 Intake, IV 416.7 272.8 Intake, Oral 720 800 Number 0 0 Bowel Movements Output, Urine 2500 700 Patient 133 lb Weight Physical Exam General Appearance: Alert, Oriented X3, Cooperative, No Acute Distress Skin Temp/Moisture Exam: Warm/Dry Neck: Supple Cardiovascular: Normal S1, Normal S2, No Murmurs, irregularly irregular Lungs: Decrease air entery bilateral prolonged expiratory phase scattered wheeze Abdomen: Normal Bowel Sounds, Soft, No Tenderness Extremities: No Clubbing, No Cyanosis, No Edema, Normal Pulses Assessment/Plan Impression/Plan Impression/Plan Impression/Plan: 1. Community-acquired pneumonia. Pseudomonas pneumonia. 2. Acute exacerbation of COPD. 3. Nonspecific T-wave abnormality/nonsustained V. tach. 4. Proximal atrial fibrillation. 5. Hypertension. Recommendations: * Continue rate control and anticoagulation as per cardiology. * Continue nebs/TRC. * Continue slow prednisone taper. * Continue pain pathway. * Complete oral ciprofloxacin therapy for 7-10 days. * Daliresp, Spiriva, Pulmicort and provide that to continue. * Continue all supportive care.
[2017-02-02 23:11] VITALS: BP 100/65
[2017-02-03 07:02] VITALS: BP 127/71
[2017-02-03 08:35] VITALS: BP 116/74
--- NOTE | 2017-02-03 12:36 | PN- Pulmonary ---
Subjective HPI/Critical Care Issues: The patient is awake and alert. She reports feeling improved overall. She continues to complain of oral thrush and difficulty swallowing. She has been started on Diflucan which she does not feel is improving her symptoms. She offers no new complaints otherwise today. Objective Current Medications: Current Medications Sig/Lana Start time Last Medication Dose Route Stop Time Status Admin Acetaminophen 650 MG Q6P PRN 01/25 2215 AC 01/28 PO 1542 Acetaminophen/ 1 TAB ONCE ONE 02/03 0345 DC 02/03 Hydrocodone Bitart PO 02/03 0346 0339 Acetaminophen/ 1 TAB Q6 02/01 2359 AC 02/03 Hydrocodone Bitart PO 0700 Albuterol Sulfate 3 ML EVERY 4 HRS/AWAKE 01/26 0815 AC 02/03 INH 1158 Alprazolam 0.5 MG TID PRN 01/28 0805 AC 02/03 PO 02/04 0804 1106 Amiodarone HCl 400 MG TID 02/02 1101 AC 02/03 PO 1108 Arformoterol Tartrate 15 MCG DAILY 01/26 1000 AC 02/03 INH 1158 Ascorbic Acid 500 MG DAILY 01/26 1000 AC 02/03 PO 1058 Aspirin 81 MG DAILY 01/30 1000 AC 02/03 PO 1057 Budesonide 0.5 MG BID 01/26 1000 AC 02/03 INH 0850 Bupropion HCl 200 MG DAILY 01/26 1000 AC 02/03 PO 1058 Ciprofloxacin 250 MG BID 01/30 1435 AC 02/03 PO 02/08 1400 1054 Diltiazem HCl 180 MG BID 02/01 2200 AC 02/03 PO 1108 Docusate Sodium 200 MG AT BEDTIME 01/28 2200 AC 02/02 PO 2212 Ezetimibe 10 MG DAILY 01/26 1000 AC 02/03 PO 1058 Ferrous Sulfate 325 MG DAILY 01/26 1000 AC 02/03 PO 1056 Folic Acid 1 MG DAILY 01/26 1000 AC 02/03 PO 1056 Furosemide 40 MG 7:30 AM, & 4:30 PM 02/01 1630 AC 02/03 PO 0700 Guaifenesin 10 ML Q6P PRN 01/28 1200 AC 01/29 PO 1852 Guaifenesin 600 MG DAILY 01/26 1000 AC 02/03 PO 1056 Levothyroxine Sodium 0.1 MG DAILY AC 01/26 0700 AC 02/03 PO 0700 Lidocaine/Diphenhydr/ 10 ML Q4-6 PRN PRN 02/02 1000 AC 02/03 Alum/Mg/Simeth PO 1112 Losartan Potassium 50 MG DAILY 01/26 1743 AC 02/03 PO 1109 Melatonin 3 MG .STK-MED ONE 02/02 2351 DC PO 02/02 2352 Melatonin 3 MG AT BEDTIME PRN 01/26 1945 AC 02/02 PO 2350 Montelukast Sodium 10 MG AT BEDTIME 01/26 2200 AC 02/02 PO 2210 Nitroglycerin 0.6 MG DAILY 01/26 1000 AC 02/03 TOP 1110 Nystatin 5 ML 4 TIMES/DAY 02/01 1400 AC 02/03 PO 1054 Omeprazole 40 MG DAILY AC 01/26 0700 AC 02/03 PO 0700 Polyethylene Glycol 17 GM DAILY 02/02 1000 AC 02/03 PO 1103 Potassium Chloride 20 MEQ DAILY 01/26 1000 AC 02/03 PO 1056 Pravastatin Sodium 40 MG AT BEDTIME 01/26 2200 AC 02/02 PO 2210 Prednisone 50 MG DAILY 02/02 1000 AC 02/03 PO 1057 Rivaroxaban 20 MG 1700 02/02 1700 AC 02/02 PO 1741 Roflumilast 500 MCG DAILY 01/26 1000 AC 02/03 PO 1053 Sertraline HCl 200 MG DAILY 01/26 1000 AC 02/03 PO 1058 Sucralfate 1,000 MG 4 TIMES/DAY 01/25 2200 AC 02/03 PO 1055 Tiotropium [place] 1 PUF DAILY 01/26 1000 AC 02/03 INH 1109 Trimethobenzamide HCl 200 MG TIDPRN PRN 01/26 0230 AC IM Vital Signs & I&O Last 24 Hrs of Vitals and I&O: Vital Signs Date Time Temp Pulse Resp B/P B/P Pulse O2 O2 Flow FiO2 Mean Ox Delivery Rate 02/03 1109 103 130/60 02/03 1108 103 130/60 02/03 1108 103 130/60 02/03 0851 97 Nasal 2.0L Cannula 02/03 0835 98.3 97 18 116/74 98 Nasal 2.0L Cannula 02/03 0800 Nasal 2.0L Cannula 02/03 0702 127/71 02/03 0000 Nasal 2.0L Cannula 02/02 2311 98.1 108 18 100/65 98 Nasal Cannula 02/02 2214 100/65 02/02 2211 100/65 02/02 1741 12502/02 1613 98.2 87 18 96 Nasal 2.0L Cannula 02/02 1600 95 Nasal 2.0L Cannula 02/02 1556 96 Nasal 2.0L Cannula Intake & Output 02/03 1600 02/03 0800 02/03 0000 Intake Total 400 200 Output Total 550 350 Balance -150 -150 Intake, Oral 400 200 Output, Urine 550 350 Physical Exam General Appearance: Alert, Oriented X3, Cooperative, No Acute Distress Skin Temp/Moisture Exam: Warm/Dry Neck: Supple Cardiovascular: Normal S1, Normal S2, No Murmurs, irregularly irregular Lungs: Decrease air entery bilateral prolonged expiratory phase scattered wheeze Abdomen: Normal Bowel Sounds, Soft, No Tenderness Extremities: No Clubbing, No Cyanosis, No Edema, Normal Pulses Results Last 24 Hrs of Lab Results: Laboratory Tests 02/02/17 1930: APTT Cancelled Last 24 Hrs of Micro Results: Sputum sample positive for Pseudomonas. Impression/Plan Impression/Plan Impression/Plan: 1. Community-acquired pneumonia. Pseudomonas pneumonia. 2. Acute exacerbation of COPD. 3. Nonspecific T-wave abnormality/nonsustained V. tach. 4. Proximal atrial fibrillation. 5. Hypertension. Recommendations: * Continue rate control and anticoagulation as per cardiology. * Continue nebs/TRC. * Continue slow prednisone taper. * Continue pain pathway. * Complete oral ciprofloxacin therapy for 7-10 days. * Daliresp, Spiriva, Pulmicort and provide that to continue. * Continue all supportive care.
--- NOTE | 2017-02-03 15:41 | PN- Housestaff ---
LENNOX TIAN 02/03/17 1518: Subjective Follow-up For: 1. Community-acquired pneumonia. Pseudomonas pneumonia. 2. Acute exacerbation of COPD. 3. Nonspecific T-wave abnormality/nonsustained V. tach. 4. Proximal atrial fibrillation. Subjective: This morning patient is alert, awake and oriented. She is getting respiratory treatment right now. Patient reports having intermittent dull nonradiating central chest pain. She still coughing and bringing up yellow phlegm. She is on 2 L of oxygen via nasal cannula right now Review of Systems Constitutional: Reports: see HPI. Objective Last 24 Hrs of Vital Signs/I&O Vital Signs Date Time Temp Pulse Resp B/P B/P Pulse O2 O2 Flow FiO2 Mean Ox Delivery Rate 02/03 1109 103 130/60 02/03 1108 103 130/60 02/03 1108 103 130/60 02/03 0851 97 Nasal 2.0L Cannula 02/03 0835 98.3 97 18 116/74 98 Nasal 2.0L Cannula 02/03 0800 Nasal 2.0L Cannula 02/03 0702 127/71 02/03 0000 Nasal 2.0L Cannula 02/02 2311 98.1 108 18 100/65 98 Nasal Cannula 02/02 2214 100/65 02/02 2211 100/65 02/02 1741 125/85 02/02 1613 98.2 87 18 125/85 96 Nasal 2.0L Cannula 02/02 1600 95 Nasal 2.0L Cannula 02/02 1556 96 Nasal 2.0L Cannula Intake & Output 02/03 1600 02/03 0800 02/03 0000 Intake Total 1400 400 200 Output Total 550 350 Balance 1400 -150 -150 Intake, Oral 1400 400 200 Number 1 Bowel Movements Output, Urine 550 350 Physical Exam General Appearance: Alert, Oriented X3, Cooperative, No Acute Distress Neck: Supple Cardiovascular: irregularly irregular, tachycardic Lungs: wheezing bilaterally Abdomen: Normal Bowel Sounds, Soft, No Tenderness Neurological: Normal Speech, Strength at 5/5 X4 Ext, Sensation Intact, Cranial Nerves 3-12 NL Extremities: No Edema Current Medications: Current Medications Sig/Lana Start time Last Medication Dose Route Stop Time Status Admin Acetaminophen 650 MG Q6P PRN 01/25 2215 AC 01/28 PO 1542 Acetaminophen/ 1 TAB ONCE ONE 02/03 0345 DC 02/03 Hydrocodone Bitart PO 02/03 0346 0339 Acetaminophen/ 1 TAB Q6 02/01 2359 AC 02/03 Hydrocodone Bitart PO 1305 Albuterol Sulfate 3 ML EVERY 4 HRS/AWAKE 01/26 0815 AC 02/03 INH 1158 Alprazolam 0.5 MG TID PRN 01/28 0805 AC 02/03 PO 02/04 0804 1106 Amiodarone HCl 400 MG TID 02/02 1101 AC 02/03 PO 1108 Arformoterol Tartrate 15 MCG DAILY 01/26 1000 AC 02/03 INH 1158 Ascorbic Acid 500 MG DAILY 01/26 1000 AC 02/03 PO 1058 Aspirin 81 MG DAILY 01/30 1000 AC 02/03 PO 1057 Budesonide 0.5 MG BID 01/26 1000 AC 02/03 INH 0850 Bupropion HCl 200 MG DAILY 01/26 1000 AC 02/03 PO 1058 Ciprofloxacin 250 MG BID 01/30 1435 AC 02/03 PO 02/08 1400 1054 Clotrimazole 10 MG 5 TIMES A DAY 02/03 1800 AC PO Diltiazem HCl 180 MG BID 02/01 2200 AC 02/03 PO 1108 Docusate Sodium 200 MG AT BEDTIME 01/28 2200 AC 02/02 PO 2212 Ezetimibe 10 MG DAILY 01/26 1000 AC 02/03 PO 1058 Ferrous Sulfate 325 MG DAILY 01/26 1000 AC 02/03 PO 1056 Folic Acid 1 MG DAILY 01/26 1000 AC 02/03 PO 1056 Furosemide 40 MG 7:30 AM, & 4:30 PM 02/01 1630 AC 02/03 PO 0700 Guaifenesin 10 ML Q6P PRN 01/28 1200 AC 01/29 PO 1852 Guaifenesin 600 MG DAILY 01/26 1000 AC 02/03 PO 1056 Levothyroxine Sodium 0.1 MG DAILY AC 01/26 0700 AC 02/03 PO 0700 Lidocaine/Diphenhydr/ 10 ML Q4-6 PRN PRN 02/02 1000 AC 02/03 Alum/Mg/Simeth PO 1112 Losartan Potassium 50 MG DAILY 01/26 1743 AC 02/03 PO 1109 Melatonin 3 MG .STK-MED ONE 02/02 2351 DC PO 02/02 2352 Melatonin 3 MG AT BEDTIME PRN 01/26 1945 AC 02/02 PO 2350 Montelukast Sodium 10 MG AT BEDTIME 01/26 2200 AC 02/02 PO 2210 Nitroglycerin 0.6 MG DAILY 01/26 1000 AC 02/03 TOP 1110 Nystatin 5 ML 4 TIMES/DAY 02/01 1400 AC 02/03 PO 1304 Omeprazole 40 MG DAILY AC 01/26 0700 AC 02/03 PO 0700 Polyethylene Glycol 17 GM DAILY 02/02 1000 AC 02/03 PO 1103 Potassium Chloride 20 MEQ DAILY 01/26 1000 AC 02/03 PO 1056 Pravastatin Sodium 40 MG AT BEDTIME 01/26 2200 AC 02/02 PO 2210 Prednisone 50 MG DAILY 02/02 1000 AC 02/03 PO 1057 Rivaroxaban 20 MG 1700 02/02 1700 AC 02/02 PO 1741 Roflumilast 500 MCG DAILY 01/26 1000 AC 02/03 PO 1053 Sertraline HCl 200 MG DAILY 01/26 1000 AC 02/03 PO 1058 Sucralfate 1,000 MG 4 TIMES/DAY 01/25 2200 AC 02/03 PO 1305 Tiotropium [place] 1 PUF DAILY 01/26 1000 AC 02/03 INH 1109 Trimethobenzamide HCl 200 MG TIDPRN PRN 01/26 0230 AC IM Last 24 Hrs of Lab/Wan Results Last 24 Hrs of Labs/Mics: Laboratory Tests 02/02/17 1930: APTT Cancelled Assessment/Plan Assessment: Ms. Meehan a 67 year old female with past medical history significant for COPD on 2 L home oxygen, coronary artery disease, paroxysmal atrial fibrillation not on anticoagulation because of history of bleeding, viral meningitis, osteoarthritis and has been admitted here on telemetry floor for: 1. Community-acquired pneumonia. Pseudomonas pneumonia. 2. Acute exacerbation of COPD. 3. Nonspecific T-wave abnormality/nonsustained V. tach. 4. Proximal atrial fibrillation. 5. Oral Thrush 6. Hyponatremia PLAN * Monitor vitals closely * Continue telemetry monitoring and watch for any abnormal rhythms * Continue TRC nebs * Continue ciprofloxacin * Continue prednisone * Started her on clotrimazole for oral thrush. Diflucan has side effect of QTc prolongation * Continue amiodarone, Cardizem and Xarelto * Continue her other medications Diet: Heart healthy DVT PPx: Xarelto CODE: FULL Problem List: 1. Bacterial pneumonia Pain Ratin Pain Location: chest Pain Goal: Pain 4 or less Pain Plan: vicodin Tomorrow's Labs & Rationales: cbc, bep DVT/Prophylaxis: pharmacological RAYNA GALLEGOS MD 02/03/17 1600: Attending MD Review Statement Attending Statement Attending MD Statement: examined this patient, discuss w/resident/PA/SCRAP BALLER, agreed w/resident/PA/SCRAP BALLER, discussed with family, reviewed EMR data (avail), discussed with nursing, amended to note Attending Assessment/Plan: The patient was seen and discussed with house staff and family. Appreciate pulmonary follow-up. Patient continues with oral pain secondary to thrush. Sputum C&S pending. She is taking Vicodin for pain. The family describe gradual decline in her status. She had lengthy hospital stay at [facility]. Has been to [facility] previously for rehab. They feel she would benefit. Concern regarding her narcotic dependence. She has lost 40+ lbs. Say she is fearful of possible cardioversion. Discussed use of Diflucan for thrush, however concern regarding further prolongation of QTc. Will try Mycelex troches 5x/d x 14 days. Continue Magic mouth wash.
[2017-02-03 16:02] VITALS: BP 101/67
--- NOTE | 2017-02-03 16:23 | PN- Cardiology ---
Subjective Subjective: The patient is now on telemetry. She is in atrial fibrillation with a rate between 80 and 110. She is now on amiodarone oral loading dose, Xarelto, Lasix by mouth twice daily, aspirin, pravastatin, losartan, nitroglycerin patch, Zetia , and Cardizem 180 mg twice a day. Objective Vital Signs and I&Os Vital Signs Date Time Temp Pulse Resp B/P B/P Pulse O2 O2 Flow FiO2 Mean Ox Delivery Rate 02/03 1602 97.9 91 17 101/67 96 Nasal 2.0L Cannula 02/03 1109 103 130/60 02/03 1108 103 130/60 02/03 1108 103 130/60 02/03 0851 97 Nasal 2.0L Cannula 02/03 0835 98.3 97 18 116/74 98 Nasal 2.0L Cannula 02/03 0800 Nasal 2.0L Cannula 02/03 0702 127/71 02/03 0000 Nasal 2.0L Cannula 02/02 2311 98.1 108 18 100/65 98 Nasal Cannula 02/02 2214 100/65 02/02 2211 100/65 02/02 1741 125/85 Intake & Output 02/03 1600 02/03 0800 02/03 0000 02/02 1600 02/02 0800 02/02 0000 Intake Total 1400 267 032 7691.7 1072.8 Output Total 580 444 0986 700 Balance 1400 -150 -150 -1363.3 372.8 Intake, IV 416.7 272.8 Intake, Oral 1400 400 200 720 800 Number 1 0 0 Bowel Movements Output, Urine 558 856 2805 700 Patient 133 lb Weight Physical Exam: She is in no distress HEENT exam is normal chest reveals rhonchi Heart reveals irregular rhythm at a high normal rate Extremities no edema Current Medications: Current Medications Sig/Lana Start time Last Medication Dose Route Stop Time Status Admin Acetaminophen 650 MG Q6P PRN 01/25 2215 AC 01/28 PO 1542 Acetaminophen/ 1 TAB ONCE ONE 02/03 0345 DC 02/03 Hydrocodone Bitart PO 02/03 0346 0339 Acetaminophen/ 1 TAB Q6 02/01 2359 AC 02/03 Hydrocodone Bitart PO 1305 Albuterol Sulfate 3 ML EVERY 4 HRS/AWAKE 01/26 0815 AC 02/03 INH 1612 Alprazolam 0.5 MG TID PRN 05/08 0805 AC 02/03 PO 02/04 0804 1106 Amiodarone HCl 400 MG TID 02/02 1101 AC 02/03 PO 1108 Arformoterol Tartrate 15 MCG DAILY 01/26 1000 AC 02/03 INH 1158 Ascorbic Acid 500 MG DAILY 01/26 1000 AC 02/03 PO 1058 Aspirin 81 MG DAILY 01/30 1000 AC 02/03 PO 1057 Budesonide 0.5 MG BID 01/26 1000 AC 02/03 INH 1616 Bupropion HCl 200 MG DAILY 01/26 1000 AC 02/03 PO 1058 Ciprofloxacin 250 MG BID 01/30 1435 AC 02/03 PO 02/08 1400 1054 Clotrimazole 10 MG 5 TIMES A DAY 02/03 1800 AC PO Diltiazem HCl 180 MG BID 02/01 2200 AC 02/03 PO 1108 Docusate Sodium 200 MG AT BEDTIME 01/28 2200 AC 02/02 PO 2212 Ezetimibe 10 MG DAILY 01/26 1000 AC 02/03 PO 1058 Ferrous Sulfate 325 MG DAILY 01/26 1000 AC 02/03 PO 1056 Folic Acid 1 MG DAILY 01/26 1000 AC 02/03 PO 1056 Furosemide 40 MG 7:30 AM, & 4:30 PM 02/01 1630 AC 02/03 PO 0700 Guaifenesin 10 ML Q6P PRN 01/28 1200 AC 01/29 PO 1852 Guaifenesin 600 MG DAILY 01/26 1000 AC 02/03 PO 1056 Levothyroxine Sodium 0.1 MG DAILY AC 01/26 0700 AC 02/03 PO 0700 Lidocaine/Diphenhydr/ 10 ML Q4-6 PRN PRN 02/02 1000 AC 02/03 Alum/Mg/Simeth PO 1112 Losartan Potassium 50 MG DAILY 01/26 1743 AC 02/03 PO 1109 Melatonin 3 MG .STK-MED ONE 02/02 2351 DC PO 02/02 2352 Melatonin 3 MG AT BEDTIME PRN 01/26 1945 AC 02/02 PO 2350 Montelukast Sodium 10 MG AT BEDTIME 01/26 2200 AC 02/02 PO 2210 Nitroglycerin 0.6 MG DAILY 01/26 1000 AC 02/03 TOP 1110 Nystatin 5 ML 4 TIMES/DAY 02/01 1400 AC 02/03 PO 1304 Omeprazole 40 MG DAILY AC 05/06 0700 AC 02/03 PO 0700 Polyethylene Glycol 17 GM DAILY 02/02 1000 AC 02/03 PO 1103 Potassium Chloride 20 MEQ DAILY 01/26 1000 AC 02/03 PO 1056 Pravastatin Sodium 40 MG AT BEDTIME 01/26 2200 AC 02/02 PO 2210 Prednisone 50 MG DAILY 02/02 1000 AC 02/03 PO 1057 Rivaroxaban 20 MG 1700 02/02 1700 AC 02/02 PO 1741 Roflumilast 500 MCG DAILY 01/26 1000 AC 02/03 PO 1053 Sertraline HCl 200 MG DAILY 01/26 1000 AC 02/03 PO 1058 Sucralfate 1,000 MG 4 TIMES/DAY 01/25 220 AC 02/03 PO 1305 Tiotropium [place] 1 PUF DAILY 01/26 1000 AC 02/03 INH 1109 Trimethobenzamide HCl 200 MG TIDPRN PRN 01/26 0230 AC IM Results Last 48 Hrs of Labs/Mics: Laboratory Tests 02/03/17 0500: Sodium Cancelled, Potassium Cancelled, Chloride Cancelled, Carbon Dioxide Cancelled, Anion Gap Cancelled, BUN Cancelled, Creatinine Cancelled, Glucose Cancelled, Calcium Cancelled, Phosphorus Cancelled, Magnesium Cancelled, Total Bilirubin Cancelled, AST Cancelled, ALT Cancelled, Albumin Cancelled 02/02/17 1930: APTT Cancelled 02/02/17 0745: APTT 79 H 02/02/17 0421: Anion Gap 8, Estimated GFR > 60, Glucose 83, Calcium 9.0, Phosphorus 3.5, Magnesium 2.1, Total Bilirubin 0.2, AST 18, ALT 52, Albumin 2.9 L, CBC w Diff MAN DIFF ORDERED, RBC 3.34 L, MCV 91.1, MCH 29.5, RDW 14.6 H, MPV 7.0 L, Segmented Neutrophils 77 H, Lymphocytes 17 L, Monocytes 6, Platelet Estimate INCREASED, Hypochromic-Microcytic 2+, Anisocytosis 1+, PUBS MCHC 32.4 L 02/01/17 2306: APTT 110 *H Assessment/Plan Assessment/Plan The patient's atrial fibrillation is rate controlled. She is on all oral cardiac medications now and tolerating them well. She is continuing with intensive respiratory care. She should be continued on amiodarone loading before attempting further cardioversion. Continue telemetry? Yes
[2017-02-04 00:46] VITALS: BP 118/62
--- NOTE | 2017-02-04 07:14 | PN- Housestaff ---
See Addendum Subjective Follow-up For: 1. Community-acquired pneumonia. Pseudomonas pneumonia. 2. Acute exacerbation of COPD. 3. Nonspecific T-wave abnormality/nonsustained V. tach. 4. Proximal atrial fibrillation. Tele-Events Since Last Visit: Atrial fibrillation, heart rate 90s to 110s. Most of the time was around 100. Multiple PVCs. Subjective: Afebrile, still on A. fib however hemodynamically stable with well controlled heart rate. Patient complains of severe throat pain related to her chronic oral thrush. she denies any worsening of her shortness breath or chest pain. Review of Systems Constitutional: Reports: see HPI. Objective Last 24 Hrs of Vital Signs/I&O Vital Signs Date Time Temp Pulse Resp B/P B/P Pulse O2 O2 Flow FiO2 Mean Ox Delivery Rate 02/04 1158 Nasal 2.0L Cannula 02/04 0830 55 120/66 02/04 0829 55 120/66 02/04 0829 55 120/66 02/04 0826 100 Nasal 2.0L Cannula 02/04 0800 98 Nasal 2.0L Cannula 02/04 0757 98.1 55 18 120/66 85 Nasal 2.0L Cannula 02/04 0046 97.8 104 18 118/62 97 Nasal Cannula 02/04 0000 Nasal 2.0L Cannula 02/03 2034 98 Nasal 2.0L Cannula 02/03 1749 102 112/54 02/03 1715 96 Nasal 2.0L Cannula 02/03 1602 97.9 91 17 101/67 96 Nasal 2.0L Cannula Intake & Output 02/04 1600 02/04 0800 02/04 0000 Intake Total 500 260 500 Output Total Balance 500 260 500 Intake, IV 20 20 Intake, Oral 500 240 480 Physical Exam General Appearance: Alert, Oriented X3, Cooperative, No Acute Distress HEENT: Atraumatic, PERRLA, EOMI, Mucous Membr. moist/pink Cardiovascular: Normal S1, Normal S2, No Murmurs, irregular Lungs: wheezing over both lungs, decrease airentry overboth lungs Abdomen: Normal Bowel Sounds, Soft, No Tenderness Neurological: Normal Speech Extremities: No Clubbing, No Cyanosis, No Edema Current Medications: Current Medications Sig/Lana Start time Last Medication Dose Route Stop Time Status Admin Acetaminophen 650 MG .STK-MED ONE 02/04 020 DC PO 02/04 0205 Acetaminophen 650 MG Q6P PRN 01/25 2215 AC 02/04 PO 0203 Acetaminophen/ 1 TAB Q6 02/01 2359 DC 02/04 Hydrocodone Bitart PO 0442 Albuterol Sulfate 3 ML EVERY 4 HRS/AWAKE 01/26 0815 AC 02/04 INH 1549 Alprazolam 0.5 MG TIDPRN PRN 02/04 1115 AC 02/04 PO 02/11 1114 1149 Alprazolam 0.5 MG TID PRN 01/28 0805 DC 02/03 PO 02/04 0804 2143 Amiodarone HCl 400 MG TID 02/02 1101 AC 02/04 PO 0829 Arformoterol Tartrate 15 MCG DAILY 01/26 1000 AC 02/04 INH 1155 Ascorbic Acid 500 MG DAILY 01/26 1000 AC 02/04 PO 0831 Aspirin 81 MG DAILY 01/30 1000 AC 02/04 PO 0832 Benzocaine/Menthol See Dose Q2P PRN 02/04 1115 DC Insts (1) PO Benzocaine/Menthol 1 GEETHA Q2P PRN 02/04 1115 AC PO Budesonide 0.5 MG BID 01/26 1000 AC 02/04 INH 1550 Bupropion HCl 200 MG DAILY 01/26 1000 AC 02/04 PO 0831 Ciprofloxacin 250 MG BID 01/30 1435 AC 02/04 PO 02/08 1400 0832 Clotrimazole 10 MG 5 TIMES A DAY 02/03 1800 AC 02/04 PO 1452 Diltiazem HCl 180 MG BID 02/01 2200 AC 02/04 PO 0829 Docusate Sodium 200 MG AT BEDTIME 01/28 2200 AC 02/03 PO 2142 Ezetimibe 10 MG DAILY 01/26 1000 AC 02/04 PO 0831 Ferrous Sulfate 325 MG DAILY 01/26 1000 AC 02/04 PO 0830 Folic Acid 1 MG DAILY 01/26 1000 AC 02/04 PO 0830 Furosemide 40 MG 7:30 AM, & 4:30 PM 02/01 1630 AC 02/04 PO 0828 Guaifenesin 10 ML .STK-MED ONE 02/04 0204 DC PO 02/04 0205 Guaifenesin 10 ML .STK-MED ONE 02/03 204 DC PO 02/03 204 Guaifenesin 10 ML Q6P PRN 01/28 1200 AC 02/04 PO 1152 Guaifenesin 600 MG DAILY 01/26 1000 AC 02/04 PO 0830 Hydromorphone HCl 2 MG Q4 HRS NEEDED PRN 02/04 1530 AC PO Hydromorphone HCl 2 MG Q3P PRN 02/04 1145 DC 02/04 PO 1149 Levothyroxine Sodium 0.1 MG DAILY AC 01/26 0700 AC 02/04 PO 0604 Lidocaine/Diphenhydr/ 10 ML Q4-6 PRN PRN 02/02 1000 AC 02/04 Alum/Mg/Simeth PO 0849 Losartan Potassium 50 MG DAILY 01/26 1743 AC 02/04 PO 0830 Melatonin 3 MG .STK-MED ONE 02/03 2255 HI PO 02/03 2256 Melatonin 3 MG AT BEDTIME PRN 01/26 1945 AC 02/03 PO 2255 Montelukast Sodium 10 MG AT BEDTIME 01/26 2200 AC 02/03 PO 2140 Nitroglycerin 0.6 MG DAILY 01/26 1000 AC 02/04 TOP 0832 Nystatin 5 ML 4 TIMES/DAY 02/01 1400 AC 02/04 PO 1452 Omeprazole 40 MG DAILY AC 01/26 0700 AC 02/04 PO 0604 Patient Medication 1 UNIT ONE NR 02/04 1145 [facility] ED 02/04 1745 Patient Medication 1 UNIT ONE NR 02/04 1130 [facility] ED 02/04 1730 Polyethylene Glycol 17 GM DAILY 02/02 1000 AC 02/04 PO 0830 Potassium Chloride 20 MEQ DAILY 01/26 1000 AC 02/04 PO 0830 Pravastatin Sodium 40 MG AT BEDTIME 01/26 2200 AC 02/03 PO 2140 Prednisone 50 MG DAILY 02/02 1000 AC 02/04 PO 0830 Rivaroxaban 20 MG 1700 02/02 1700 AC 02/03 PO 1747 Roflumilast 500 MCG DAILY 01/26 1000 AC 02/04 PO 0833 Sertraline HCl 200 MG DAILY 01/26 1000 AC 02/04 PO 0831 Sucralfate 1 GM TID 02/04 1000 AC 02/04 PO 1451 Sucralfate 1,000 MG 4 TIMES/DAY 01/25 2200 DC 02/04 PO 0832 Tiotropium [place] 1 PUF DAILY 01/26 1000 AC 02/04 INH 0904 Tramadol HCl 50 MG Q6 PRN 02/04 1130 AC PO Trimethobenzamide HCl 200 MG TIDPRN PRN 01/26 0230 AC IM Dose Instructions: (1)Benzocaine/Menthol: 1 LOZENGE Last 24 Hrs of Lab/Wan Results Last 24 Hrs of Labs/Mics: Laboratory Tests 02/04/17 0714: Anion Gap 8, Estimated GFR > 60, BUN/Creatinine Ratio 41.3 H 02/04/17 0700: CBC w Diff NO MAN DIFF REQ, RBC 3.10 L, MCV 89.6, MCH 29.5, RDW 14.8 H, MPV 6.7 L, Gran % 80.5 H, Lymphocytes % 10.5 L, Monocytes % 6.3, Eosinophils % 2.6, Basophils % 0.1, Absolute Granulocytes 12.9 H, Absolute Lymphocytes 1.7, Absolute Monocytes 1.0 H, Absolute Eosinophils 0.4, Absolute Basophils 0, PUBS MCHC 32.9 L Assessment/Plan Assessment: 67 y/o F with PMHx of COPD on 2 L NC, CAD and atrial fibrillation not on anticoagulation who is admitted for community acquired pneumonia. #Community-acquired pneumonia: On day 11 of antibiotics. Patient will need to finish 10-14 days of antibiotic. * Continue ciprofloxacin 250 mg twice a day to finish a total of 14 days #COPD exacerbation: Currently on 2 L oxygen which is her baseline requirement. * We will taper oxygen if oxygen saturation allow * Continue prednisone taper, today she is in 50 mg. * Continue [id number] roflumilast 500 mcg PO daily. * Continue [id number] Spiriva inhaler, Pulmbicort and Brovana nebuliizers. * TRC and nebs. * Continue Mucinex. * Robitussin PRN for cough. #Paroxysmal atrial fibrillation: Patient had a history paroxysmal A. fib, she was in normal sinus rhythm on admission, she developed A. fib while she was on Tikosyn. Tikosyn was stopped and she was managed with IV and Nutren drip. Now she is on the following * Amiodarone at 400mg BID * Cardizem at 180mg BID. * Xarelto for stroke prophylaxis. * Please contact the daughter before attempting any cardioversion #HTN: * Lasix 40 mg PO BID * losartan 50 mg PO daily. Throat pain secondary to chronic thrush * Switch Vicodin to Dilaudid 2 mg every 4 hours. * Chloraseptic Lozenges q2 * Sucralfate liq TID Diet: Heart healthy DVT PPx: Lovenox and ALPs CODE: FULL Problem List: 1. CAP (community acquired pneumonia) 2. Atrial fibrillation Pain Ratin Pain Location: throat Pain Goal: Remain pain free Pain Plan: hydromorphone tab po 2 mg q4 as needed Tomorrow's Labs & Rationales: cbc
[2017-02-04 07:57] VITALS: BP 120/66
--- NOTE | 2017-02-04 08:17 | PN- Pulmonary ---
Subjective HPI/Critical Care Issues: Continues to be bothered by thrush and throat pain. Repeat culture shows only mixed ines. Objective Current Medications: Current Medications Sig/Lana Start time Last Medication Dose Route Stop Time Status Admin Acetaminophen 650 MG Q6P PRN 01/25 2215 AC 02/04 PO 0203 Acetaminophen/ 1 TAB Q6 02/01 2359 AC 02/04 Hydrocodone Bitart PO 0442 Albuterol Sulfate 3 ML EVERY 4 HRS/AWAKE 01/26 0815 AC 02/04 INH 0757 Alprazolam 0.5 MG TID PRN 01/28 0805 DC 02/03 PO 02/04 0804 2143 Amiodarone HCl 400 MG TID 02/02 1101 AC 02/03 PO 2142 Arformoterol Tartrate 15 MCG DAILY 01/26 1000 AC 02/03 INH 1158 Ascorbic Acid 500 MG DAILY 01/26 1000 AC 02/03 PO 1058 Aspirin 81 MG DAILY 01/30 1000 AC 02/03 PO 1057 Budesonide 0.5 MG BID 01/26 1000 AC 02/04 INH 0756 Bupropion HCl 200 MG DAILY 01/26 1000 AC 02/03 PO 1058 Ciprofloxacin 250 MG BID 01/30 1435 AC 02/03 PO 02/08 1400 2142 Clotrimazole 10 MG 5 TIMES A DAY 02/03 1800 AC 02/04 PO 0442 Diltiazem HCl 180 MG BID 02/01 2200 AC 02/03 PO 2143 Docusate Sodium 200 MG AT BEDTIME 01/28 2200 AC 02/03 PO 2142 Ezetimibe 10 MG DAILY 01/26 1000 AC 02/03 PO 1058 Ferrous Sulfate 325 MG DAILY 01/26 1000 AC 02/03 PO 1056 Folic Acid 1 MG DAILY 01/26 1000 AC 02/03 PO 1056 Furosemide 40 MG 7:30 AM, & 4:30 PM 02/01 1630 AC 02/03 PO 1749 Guaifenesin 10 ML .STK-MED ONE 02/03 2047 DC PO 02/04 2048 Guaifenesin 10 ML Q6P PRN 01/28 1200 AC 02/04 PO 0203 Guaifenesin 600 MG DAILY 01/26 1000 AC 02/03 PO 1056 Levothyroxine Sodium 0.1 MG DAILY AC 01/26 0700 AC 02/04 PO 0604 Lidocaine/Diphenhydr/ 10 ML Q4-6 PRN PRN 02/02 1000 AC 02/04 Alum/Mg/Simeth PO 0109 Losartan Potassium 50 MG DAILY 01/26 1743 AC 02/03 PO 1109 Melatonin 3 MG .STK-MED ONE 02/03 2255 DC PO 02/03 2256 Melatonin 3 MG AT BEDTIME PRN 01/26 1945 AC 02/03 PO 2255 Montelukast Sodium 10 MG AT BEDTIME 01/26 2200 AC 02/03 PO 2140 Nitroglycerin 0.6 MG DAILY 01/26 1000 AC 02/03 TOP 1110 Nystatin 5 ML 4 TIMES/DAY 02/01 1400 AC 02/04 PO 0449 Omeprazole 40 MG DAILY AC 01/26 0700 AC 02/04 PO 0604 Polyethylene Glycol 17 GM DAILY 02/02 1000 AC 02/03 PO 1103 Potassium Chloride 20 MEQ DAILY 01/26 1000 AC 02/03 PO 1056 Pravastatin Sodium 40 MG AT BEDTIME 01/26 2200 AC 02/03 PO 2140 Prednisone 50 MG DAILY 02/02 1000 AC 02/03 PO 1057 Rivaroxaban 20 MG 1700 02/02 1700 AC 02/03 PO 1747 Roflumilast 500 MCG DAILY 01/26 1000 AC 02/03 PO 1053 Sertraline HCl 200 MG DAILY 01/26 1000 AC 02/03 PO 1058 Sucralfate 1,000 MG 4 TIMES/DAY 01/25 2200 AC 02/03 PO 2255 Tiotropium [place] 1 PUF DAILY 01/26 1000 AC 02/03 INH 1109 Trimethobenzamide HCl 200 MG TIDPRN PRN 01/26 0230 AC IM Vital Signs & I&O Last 24 Hrs of Vitals and I&O: Vital Signs Date Time Temp Pulse Resp B/P B/P Pulse O2 O2 Flow FiO2 Mean Ox Delivery Rate 02/04 075 98.1 55 18 120/66 85 Nasal 2.0L Cannula 02/04 0046 97.8 104 18 118/62 97 Nasal Cannula 02/04 0000 Nasal 2.0L Cannula 02/03 2034 98 Nasal 2.0L Cannula 02/03 1749 102 112/54 02/03 1715 96 Nasal 2.0L Cannula 02/03 1602 97.9 91 17 101/67 96 Nasal 2.0L Cannula 02/03 1109 103 130/60 02/03 1108 103 130/60 02/03 1108 103 130/60 02/03 0851 97 Nasal 2.0L Cannula 02/03 0835 98.3 97 18 116/74 98 Nasal 2.0L Cannula Intake & Output 02/04 1600 02/04 0800 02/04 0000 Intake Total 260 500 Output Total Balance 260 500 Intake, IV 20 20 Intake, Oral 240 480 Oxygen saturation 85-97% exam for chest shows diminished breath sounds are no wheezes cardiac exam shows irregular rhythm Impression/Plan Impression/Plan Impression/Plan: 67-year-old with advanced COPD admitted following colonoscopy with increased shortness breath bronchospasm and marked leukocytosis with left shift. Chest x- ray shows only minor abnormalities. CT scan consistent with community-acquired pneumonia. White count has improved after treatment for pseudomonas pneumonia. Patient continues to have thrush which is being treated with Diflucan. Follow- up sputum culture is unrevealing. Recommendations: Taper prednisone. The course of antibiotics. Repeat chest x-ray. Repeat O2 saturations. Await final recommendations by cardiology. Will consider short- term rehabilitation
[2017-02-04 08:38] LABS: ABSOLUTE BASOPHIL COUNT 0 /CUMM (0.0-0.2); ABSOLUTE EOSINOPHIL COUNT 0.4 /CUMM (0.0-0.7); ABSOLUTE GRANULOCYTE CT 12.9 /CUMM (1.4-6.5); ABSOLUTE LYMPH COUNT 1.7 /CUMM (1.2-3.4); BASOPHIL % 0.1 % (0.0-2.0); EOSINOPHIL % 2.6 % (0-5); GRANULOCYTE % 80.5 % (42.2-75.2); HEMATOCRIT 27.8 % (37-47); MEAN CORPUSCULAR HGB 29.5 PG (27.0-31.0); MEAN CORPUSCULAR HGB CONC 32.9 G/DL (33.0-37.0); MEAN CORPUSCULAR VOLUME 89.6 FL (81.0-99.0); MEAN PLATELET VOLUME 6.7 FL (7.4-10.4); PLATELET COUNT 663 /CUMM (130-400); RBC DISTRIBUTION WIDTH 14.8 % (11.5-14.5)
--- NOTE | 2017-02-04 09:45 | PN- Cardiology ---
Subjective Subjective: * Patient complains of severe throat pain related to her thrush. She continues to be short of breath. * atrial fibrillation with good rate control on Amiodarone and Cardizem Objective Vital Signs and I&Os Vital Signs Date Time Temp Pulse Resp B/P B/P Pulse O2 O2 Flow FiO2 Mean Ox Delivery Rate 02/04 0830 55 120/66 02/04 0829 55 120/66 02/04 0829 55 120/66 02/04 0826 100 Nasal 2.0L Cannula 02/04 0757 98.1 55 18 120/66 85 Nasal 2.0L Cannula 02/04 0046 97.8 104 18 118/62 97 Nasal Cannula 02/04 0000 Nasal 2.0L Cannula 02/03 2034 98 Nasal 2.0L Cannula 02/03 1749 102 112/54 02/03 1715 96 Nasal 2.0L Cannula 02/03 1602 97.9 91 17 101/67 96 Nasal 2.0L Cannula 02/03 1109 103 130/60 02/03 1108 103 130/60 02/03 1108 103 130/60 Intake & Output 02/04 1600 02/04 0800 02/04 0000 02/03 1600 02/03 0800 02/03 0000 Intake Total 579 824 5748 400 200 Output Total 550 350 Balance 479 862 6089 -150 -150 Intake, IV 20 20 Intake, Oral 412 872 9160 400 200 Number 1 Bowel Movements Output, Urine 550 350 Physical Exam: General: WD/ WN female in NAD: alert and oriented x 3 NECK: no JVD, no carotid bruit Heart: irregularly irregular No murmur Lungs: no crackles, decreased air movement bilaterally Extremities: No edema Assessment/Plan Assessment/Plan * Tikosyn has not maintained a sinus rhythm. It is not compatible with Amiodarone. Since this medication is not effective and is somewhat undesireable in the setting of Cipro use and contraindicated with Amiodarone, we have stopped this medication. The patient will likely undergo an atrial fibrillation ablation by Dr. Bahena after discharge when her breathing improves. Continue Amiodarone at 400mg BID and Cardizem at 180mg BID. Continue Xarelto for stroke prophylaxis. * This patient is improving with treatment for her pneumonia with associated bronchospasm. * No significant chest discomfort. Continue NTG patch at 0.6mg/hr daily as an antianginal as well as to control her blood pressure. 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 This is a region of a prior [place] and does receive collateral flow. I believe she has less bronchospasm off metoprolol. I am not inclined to restart any beta blockers. * The patient has severe throat pain related to thrush. Her Vicodin should be increased to Q 4 hours. Continue telemetry? Yes
--- NOTE | 2017-02-04 16:02 | Discharge Summary ---
See Addendum Visit Information Visit Dates Admission Date: 01/25/17 Discharge Date: 02/05/17 Hospital Course Course Attending Physician: RAYNA GALLEGOS MD Primary Care Physician: GERARD MARION MD Hospital Course: Patient is 67-year-old female with past medical history significant for hypertension, COPD on 2 L nasal cannula oxygen at home, coronary artery disease, atrial fibrillation not on any anticoagulation because of GI bleed in the past, hypothyroidism and osteoarthritis came with chief complaint of chills, cough with yellow phlegm production. Vital signs on admission with MAXIMUM TEMPERATURE 100.6, heart rate of 109, respiratory rate 20, blood pressure 172/82 and she was saturating 92% on 2 L nasal cannula oxygen Labs: WBC 29.2, neutrophil 89%, bands 6, hemoglobin 10.2, platelet 568, sodium 134, potassium 3.2, chloride 96, bicarbonate 27, gap 11, creatinine 0.7, LFT unremarkable, lactate 0.8. UA unremarkable CXR: #1 Interval development of patchy airspace opacities within the left lung apex. A subtle opacity is also visualized within the right upper lobe. This could reflect infection. Recommend follow-up PA and lateral chest x-ray following treatment to ensure resolution and to exclude underlying malignancy given the patient's clinical risk factors. #2 Radiographic findings suggestive of underlying COPD. Patient was admitted on telemetry floor and following issues were addressed Problem #1 community-acquired pneumonia with Pseudomonas growth in sputum Initially patient was started on ceftriaxone and doxycycline and patient was monitored on telemetry floor as of having interaction with Tikosyn that can cause prolonged QT interval. Patient sputum started growing Pseudomonas and antibiotics were changed to Ceftin as attempted and later on was switched to oral ciprofloxacin and patient will complete 10 day course of ciprofloxacin. Repeat sputum culture showed mixed ines. Will need pulmonary rehabilitation on discharge. Patient is instructed to follow-up with floorwalker as outpatient. Problem number 2 COPD exacerbation On top of antibiotic coverage patient was also started on IV Solu-Medrol later on was changed to oral prednisone and we will slowly taper prednisone for course of 2-3 weeks. Patient was provided with supplemental oxygen to keep oxygen saturation more than 90% during hospital stay Problem #3 persistent atrial fibrillation/nonspecific ST-T wave abnormalities on admission rule out infarction Patient has a history of paroxysmal atrial fibrillation in the past and was not on anticoagulation on admission due to history of GI bleed in the past. She was maintaining in sinus rhythm with dofetilide and diltiazem but during her hospital stay on January 30 When she developed persistent atrial fibrillation. Patient was started on Cardizem drip and also was given multiple IV push of Cardizem but patient stayed in atrial fibrillation heart rate ranges from 130s to 140s. Next morning chemical cardioversion was tried with convert by Dr. Naranjo but unfortunately that didn't work. Then plan was made to start patient on amiodarone drip and patient was transferred to ICU. Her Tikosyn was discontinued as there is significant interval reduction with continued drawn. Patient was off of Tikosyn for 24 hours to make sure effects were cleared off and later patient was started on amiodarone drip that was changed to oral amiodarone and patient was transferred back to telemetry floor. Patient was also given IV heparin and later on was changed to oral anticoagulation with xaralto. patient was maintaining her heart raterhythm within acceptable range with oral amiodarone and diltiazem. Patient will likely undergo an atrial fibrillation ablation by Dr. Bahena after discharge when her bleeding status would improve. Meanwhile we will continue amiodarone at 400 mg twice a day and Cardizem at 180 mg twice a day. Patient was also instructed to continue his evaluation for stroke prophylaxis. Problem #4 history of hypertension He continued her home medications Problem #5 chronic neck pain She was provided with adequate analgesia during hospital stay Patient acosta had unwitnessed fall and restroom on February 04 but patient was able to get up by herself and she didn't call for help but later she mentioned pain in her right shoulder imaging study was done with right shoulder x-ray that didn't show any bony deformity or fracture. Problem #6 oral thrush/odynophagia Patient was given nystatin suspension with sucralfate for oral thrush Complications: None Allergies: Coded Allergies: menotropins (HIVES FROM PERGONAL 11/15/15) apixaban (HEMATOMA TO HIP 02/02/17) Significant Procedures: DAFNE STEPH Age: 67 : 1950 Gender: F Exam Date: 01/28/2017 11:26 Exam Location: [address] [place] [address] Ht (in): 62 Wt (lb): 106 BSA: 1.45 BP: 148 / 60 Ordering Physician: MARY SOLITARIO MD Referring Physician: MARY SOLITARIO MD Technologist: Jovany Gale [facility] Room Number: [id number] Indications: VENTRICULAR TACHYCARDIA Rhythm: Sinus Technical Quality: good FINDINGS Left Ventricle Normal left ventricular size with mild left ventricular hypertrophy. Normal systolic function with no obvious regional wall motion abnormalities. Normal left ventricular diastolic filling pattern for age. The ejection fraction is visually estimated at 60%. Right Ventricle The right ventricle is mildly enlarged with normal function. Right Atrium The right atrium is normal in size. Left Atrium The left atrium is moderately dilated. The interatrial septum is intact. Mitral Valve The mitral valve is normal in structure and function. There is mild mitral regurgitation. Aortic Valve Structurally normal aortic valve without significant sclerosis or stenosis. There is moderate aortic regurgitation. Tricuspid Valve The tricuspid valve is normal in structure and function. There is trace to mild tricuspid regurgitation. Pulmonary artery systolic pressure is mildly elevated to 41mmHg. Pulmonic Valve Structurally normal pulmonic valve. There is no pulmonic regurgitation. Pericardium Normal pericardium without effusion. No pleural effusion. Great Vessels Normal aortic root dimension. The aortic arch and great vessels are well seen and are normal. CONCLUSIONS 1. Normal EF of 60%. 2. Mild left ventricular hypertrophy. 3. Mild right ventricular enlargement. 4. Moderate left atrial enlargement. 5. Mild mitral regurgitation. 6. Trace to mild tricuspid regurgitation. 7. Moderate aortic regurgitation. 8. Mild pulmonary hypertension. Gerard Naranjo M.D. (Electronically Signed) Final Date: 29 Jan 2017 06:31 MEASUREMENTS (Male / Female) Normal Values 2D ECHO LV Diastolic Diameter PLAX 4.4 cm 4.2 - 5.9 / 3.9 - 5.3 cm LV Systolic Diameter PLAX 2.9 cm 2.1 - 4.0 cm LV Fractional Shortening PLAX 34.1 % 25 - 46 % LV Ejection Fraction 2D Teich 63.3 % IVS Diastolic Thickness 1.2 cm LVPW Diastolic Thickness 1.2 cm LV Relative Wall Thickness 0.5 RV Internal Dim ED PLAX 3.9 cm 1.9 - 3.8 cm LVOT Diameter 1.8 cm Aortic Root Diameter 2.5 cm LA Systolic Diameter LX 4.7 cm 3.0 - 4.0 / 2.7 - 3.8 cm LA Volume 100.0 cm 18 - 58 / 22 - 52 cm DOPPLER AV Peak Velocity 182.0 cm/s AV Peak Gradient 13.2 mmHg AV Mean Velocity 125.0 cm/s AV Mean Gradient 7.0 mmHg AV Velocity Time Integral 40.7 cm AI Deceleration Ada 360.5 cm/s AI Peak Velocity 371.5 cm/s AI Pressure Half Time 302.5 ms AI Peak Gradient 55.2 mmHg LVOT Peak Velocity 135.0 cm/s LVOT Peak Gradient 7.3 mmHg LVOT Mean Velocity 80.1 cm/s LVOT Mean Gradient 3.0 mmHg LVOT Velocity Time Integral 29.9 cm LVOT Stroke Volume 76.1 cm AV Area Cont Eq vti 1.9 cm AV Area Cont Eq pk 1.9 cm MV Peak Velocity 124.0 cm/s MV Peak Gradient 6.2 mmHg MV Mean Velocity 59.0 cm/s MV Mean Gradient 2.0 mmHg Mitral E Point Velocity 110.0 cm/s Mitral A Point Velocity 31.1 cm/s Mitral E to A Ratio 3.5 MV PHT Velocity 129.0 cm/s MV Deceleration Ada 406.0 cm/s MV Pressure Half Time 95.3 ms MV Area PHT 2.3 cm MV Deceleration Time 201.0 ms TR Peak Velocity 280.0 cm/s TR Peak Gradient 31.4 mmHg Right Atrial Pressure 10.0 mmHg Pulmonary Artery Systolic Pressu 41.4 mmHg Right Ventricular Systolic Press 41.4 mmHg PV Peak Velocity 62.0 cm/s PV Peak Gradient 1.5 mmHg PV Mean Velocity 37.0 cm/s PV Mean Gradient 1.0 mmHg PV Velocity Time Integral 7.8 cm LV E' Lateral Velocity 12.2 cm/s Mitral E to LV E' Lateral Ratio 9.0 LV E' Septal Velocity 7.2 cm/s Mitral E to LV E' Septal Ratio 15.3 DICTATED BY: MARA ETIENNE PhD,GERARD Dinh DATE/TIME DICTATED:01/29/17630 CREDIT AND COLLECTIONS ANALYST:PAPO DATE/TIME TRANSCRIBED:01/29/17630 Pertinent Lab Results: STEPH LEOS Age: 67 : 1950 Gender: F Exam Date: 01/28/2017 11:26 Exam Location: [address] [place] [address] Ht (in): 62 Wt (lb): 106 BSA: 1.45 BP: 148 / 60 Ordering Physician: MARY SOLITARIO MD Referring Physician: MARY SOLITARIO MD Technologist: Jovany Gale [facility] Room Number: [id number] Indications: VENTRICULAR TACHYCARDIA Rhythm: Sinus Technical Quality: good FINDINGS Left Ventricle Normal left ventricular size with mild left ventricular hypertrophy. Normal systolic function with no obvious regional wall motion abnormalities. Normal left ventricular diastolic filling pattern for age. The ejection fraction is visually estimated at 60%. Right Ventricle The right ventricle is mildly enlarged with normal function. Right Atrium The right atrium is normal in size. Left Atrium The left atrium is moderately dilated. The interatrial septum is intact. Mitral Valve The mitral valve is normal in structure and function. There is mild mitral regurgitation. Aortic Valve Structurally normal aortic valve without significant sclerosis or stenosis. There is moderate aortic regurgitation. Tricuspid Valve The tricuspid valve is normal in structure and function. There is trace to mild tricuspid regurgitation. Pulmonary artery systolic pressure is mildly elevated to 41mmHg. Pulmonic Valve Structurally normal pulmonic valve. There is no pulmonic regurgitation. Pericardium Normal pericardium without effusion. No pleural effusion. Great Vessels Normal aortic root dimension. The aortic arch and great vessels are well seen and are normal. CONCLUSIONS 1. Normal EF of 60%. 2. Mild left ventricular hypertrophy. 3. Mild right ventricular enlargement. 4. Moderate left atrial enlargement. 5. Mild mitral regurgitation. 6. Trace to mild tricuspid regurgitation. 7. Moderate aortic regurgitation. 8. Mild pulmonary hypertension. Gerard Naranjo M.D. (Electronically Signed) Final Date: 29 Jan 2017 06:31 MEASUREMENTS (Male / Female) Normal Values 2D ECHO LV Diastolic Diameter PLAX 4.4 cm 4.2 - 5.9 / 3.9 - 5.3 cm LV Systolic Diameter PLAX 2.9 cm 2.1 - 4.0 cm LV Fractional Shortening PLAX 34.1 % 25 - 46 % LV Ejection Fraction 2D Teich 63.3 % IVS Diastolic Thickness 1.2 cm LVPW Diastolic Thickness 1.2 cm LV Relative Wall Thickness 0.5 RV Internal Dim ED PLAX 3.9 cm 1.9 - 3.8 cm LVOT Diameter 1.8 cm Aortic Root Diameter 2.5 cm LA Systolic Diameter LX 4.7 cm 3.0 - 4.0 / 2.7 - 3.8 cm LA Volume 100.0 cm 18 - 58 / 22 - 52 cm DOPPLER AV Peak Velocity 182.0 cm/s AV Peak Gradient 13.2 mmHg AV Mean Velocity 125.0 cm/s AV Mean Gradient 7.0 mmHg AV Velocity Time Integral 40.7 cm AI Deceleration Ada 360.5 cm/s AI Peak Velocity 371.5 cm/s AI Pressure Half Time 302.5 ms AI Peak Gradient 55.2 mmHg LVOT Peak Velocity 135.0 cm/s LVOT Peak Gradient 7.3 mmHg LVOT Mean Velocity 80.1 cm/s LVOT Mean Gradient 3.0 mmHg LVOT Velocity Time Integral 29.9 cm LVOT Stroke Volume 76.1 cm AV Area Cont Eq vti 1.9 cm AV Area Cont Eq pk 1.9 cm MV Peak Velocity 124.0 cm/s MV Peak Gradient 6.2 mmHg MV Mean Velocity 59.0 cm/s MV Mean Gradient 2.0 mmHg Mitral E Point Velocity 110.0 cm/s Mitral A Point Velocity 31.1 cm/s Mitral E to A Ratio 3.5 MV PHT Velocity 129.0 cm/s MV Deceleration Ada 406.0 cm/s MV Pressure Half Time 95.3 ms MV Area PHT 2.3 cm MV Deceleration Time 201.0 ms TR Peak Velocity 280.0 cm/s TR Peak Gradient 31.4 mmHg Right Atrial Pressure 10.0 mmHg Pulmonary Artery Systolic Pressu 41.4 mmHg Right Ventricular Systolic Press 41.4 mmHg PV Peak Velocity 62.0 cm/s PV Peak Gradient 1.5 mmHg PV Mean Velocity 37.0 cm/s PV Mean Gradient 1.0 mmHg PV Velocity Time Integral 7.8 cm LV E' Lateral Velocity 12.2 cm/s Mitral E to LV E' Lateral Ratio 9.0 LV E' Septal Velocity 7.2 cm/s Mitral E to LV E' Septal Ratio 15.3 DICTATED BY: MARA ETIENNE PhD,GERARD Dinh DATE/TIME DICTATED:01/29/17630 CREDIT AND COLLECTIONS ANALYST:PAPO DATE/TIME TRANSCRIBED:01/29/17630 Disposition Summary Disposition Principal Diagnosis: Pseudomonas pneumonia Additional Diagnosis: Atrial fibrillation Discharge Disposition: SNF Discharge Instructions General Discharge Information Code Status: Full Code Patient's Diet: Heart healthy diet Patient's Activity: As tolerated with assistance Follow-Up Instructions/Appts: Please follow-up with your primary care physician in one week of discharge Please follow-up with consumer insight analyst in 1 week of discharge for further advice regarding ablation for atrial fibrillation please follow-up with floorwalker as outpatient in 1-2 weeks of discharge Take medications as prescribed Medications at Discharge Discharge Medications: Stop taking the following medications: Sucralfate (Sucralfate) 1 GM TABLET ORAL 4 TIMES A DAY Dofetilide (Tikosyn) 250 MCG CAPSULE ORAL TWICE DAILY Qty = 30 Continue taking these medications: Levothyroxine Sodium (Levothyroxine Sodium) 100 MCG TABLET 1 Tablet ORAL DAILY BEFORE BREAKFAST Sertraline HCl (Zoloft) 100 MG TABLET 2 Tablet ORAL DAILY Ezetimibe (Zetia) 10 MG TABLET 1 Tablet ORAL DAILY Bupropion HCl (Bupropion HCl Sr) 200 MG TABLET.ER 1 Tablet ORAL Every Morning Ferrous Sulfate (Ferrous Sulfate) 325 MG (65 MG IRON) TABLET 1 Tablet ORAL DAILY Pravastatin Sodium (Pravachol) 40 MG TABLET 1 Tablet ORAL Every night Docusate Sodium (Colace) 100 MG CAPSULE 2 Capsule ORAL Every night Roflumilast (Daliresp) 500 MCG TABLET 1 Tablet ORAL DAILY Comments: NOT GIVEN IN HOSPITAL [place]-3 Fatty Acids/Fish Oil (Fish Oil 1,000 MG Capsule) 340 MG-1,000 MG CAPSULE 2 Capsule ORAL DAILY Comments: Last Taken: 08/13/16 Time: 9:30 AM Montelukast Sodium (Montelukast Sodium) 10 MG TABLET 1 Tablet ORAL DAILY Comments: NOT GIVEN IN HOSPITAL Folic Acid (Folic Acid) 1 MG TABLET 1 Tablet ORAL DAILY Comments: NOT GIVEN IN HOSPITAL Vitamin E (Dl,Tocopheryl Acet) (Vitamin E) 400 UNIT CAPSULE 1 Tablet ORAL DAILY Comments: NOT GIVEN IN HOSPITAL Ascorbic Acid (Vitamin C) 500 MG CAPSULE.ER 1 Capsule ORAL DAILY Comments: NOT GIVEN IN THE HOSPITAL Calcium Carbonate/Vitamin D3 (Caltrate 600 + D Tablet) 1 EACH TABLET 1 Tablet ORAL DAILY Comments: NOT GIVEN IN HOSPITAL Cholecalciferol (Vitamin D3) (Vitamin D3) 400 UNIT TABLET 1 Tablet ORAL DAILY Comments: NOT GIVEN IN HOSPITAL Furosemide (Lasix) 40 MG TABLET 1 Tablet ORAL TWICE DAILY Comments: Last Taken: 08/13/16 Time: 10 AM Budesonide (Pulmicort) 0.5 MG/2 ML AMPUL.NEB 1 Vial Inhale Solution TWICE DAILY Comments: NOT GIVEN IN HOSPITAL Guaifenesin (Mucinex) 600 MG TAB.ER.12H 1 Tablet ORAL DAILY Comments: Last Taken: 08/13/16 Time: 10 AM Alprazolam (Alprazolam) 0.5 MG TABLET 1 Tablet ORAL DAILY Comments: Last Taken: 08/12/16 Time: 10 PM Potassium Chloride (Potassium Chloride) 20 MEQ TAB.ER.PRT 1 Tablet ORAL DAILY Qty = 30 Comments: Last Taken: 08/12/16 Time: 930 AM Tiotropium [place] (Spiriva) 18 MCG CAP.W.DEV 1 Capsule Inhale through mouth DAILY Qty = 3 Instructions: Reason to Stop at ADM:TRC NEBS ORDERS Comments: Last Taken: 05/06/16 Time: 12:30 PM Fluticasone/Salmeterol (Advair 250-50 Diskus) 250 MCG-50 MCG/DOSE BLST.W.DEV 1 Puff Inhale through mouth TWICE DAILY Albuterol Sulfate (Albuterol Sulfate) 2.5 MG/3 ML (0.083 %) VIAL.NEB 1 Vial Inhale Solution 4XDAILY as needed for RESPIRATORY Arformoterol Tartrate (Brovana) 15 MCG/2 ML VIAL.NEB 1 VIAL Inhale through mouth DAILY Losartan Potassium (Losartan Potassium) 50 MG TABLET 1 Tablet ORAL DAILY Qty = 90 Nitroglycerin (Nitro-Dur) 0.6 MG/HOUR PATCH.TD24 1 PATCH On the skin DAILY Omeprazole (Omeprazole) 40 MG CAPSULE.DR 1 Capsule ORAL DAILY Acetaminophen (Arthritis Pain Reliever) 650 MG TABLET.ER 2 Tablet ORAL as needed for PAIN Diltiazem HCl (Diltiazem ER) 180 MG CAPSULE.ER 1 Tablet ORAL DAILY Days = 28 Start taking the following new medications: Ciprofloxacin HCl (Ciprofloxacin HCl) 250 MG TABLET 250 Milligram ORAL TWICE DAILY Qty = 7 No Refills Rivaroxaban (Xarelto) 10 MG TABLET 20 Milligram ORAL 5 PM Days = 30 No Refills Instructions: please follow with cardilogy as an out patinet to refill this medication [Cordarone] 400 Milligram ORAL THREE TIMES DAILY Days = 30 No Refills Hydromorphone HCl (Hydromorphone HCl) 2 MG TABLET 2 Milligram ORAL EVERY 4 HOURS NEEDED as needed for PAIN SCALE 7-10 ( SEVERE) Days = 10 No Refills Sucralfate (Sucralfate) 1 GRAM/10 ML ORAL.SUSP 1 Gram ORAL THREE TIMES DAILY Days = 30 No Refills Prednisone (Prednisone) 10 MG TABLET 1 Tablet ORAL DAILY Qty = 30 No Refills Instructions: please take as the following 4 tabs X 3 days 3 tabs X 3 days 2 tabs X 3 days 1 tabs X 3 days then stop Copies To: SANAM ETIENNE,GERARD Castro Attending MD Review Statement Documenting Attending: RAYNA GALLEGOS MD
[2017-02-04] MEDS ORDERED: PREDNISONE10 M2 PO (16:42)
[2017-02-04 17:00] VITALS: BP 106/56
[2017-02-04 18:35] VITALS: BP 132/70
--- NOTE | 2017-02-04 18:58 | NUR ---
1730 - PATIENT ALLOWED TO TAKE SHOWER. INDEPENDENT. PATIENT STATED SHE FELL ONTO HER RIGHT KNEE WHEN EXITING SHOWER. PT STATED SHE ALSO HIT HER RIGHT SHOULDER. NURSING ZANJERO CLAUDIA NOTIFIED, MD ZIEGLER NOTIFIED. AT BEDSIDE. PT VSS. POST FALL ASSESSMENT PERFORMED.
[2017-02-04 23:54] VITALS: BP 128/62
[2017-02-05 08:09] LABS: ABSOLUTE BASOPHIL COUNT 0 /CUMM (0.0-0.2); ABSOLUTE EOSINOPHIL COUNT 0.1 /CUMM (0.0-0.7); ABSOLUTE LYMPH COUNT 2.5 /CUMM (1.2-3.4); BASOPHIL % 0.2 % (0.0-2.0); EOSINOPHIL % 0.5 % (0-5); GRANULOCYTE % 80.9 % (42.2-75.2); HEMATOCRIT 25.9 % (37-47); MEAN CORPUSCULAR HGB 29.9 PG (27.0-31.0); MEAN CORPUSCULAR HGB CONC 32.8 G/DL (33.0-37.0); MEAN PLATELET VOLUME 6.6 FL (7.4-10.4); PLATELET COUNT 627 /CUMM (130-400); RBC DISTRIBUTION WIDTH 15.1 % (11.5-14.5); RED BLOOD CELL CT 2.84 /CUMM (4.20-5.40)
[2017-02-05 08:12] VITALS: BP 148/72
[2017-02-05 08:26] LABS: WHITE BLOOD CELL COUNT 24.8 /CUMM (4.8-10.8)
--- NOTE | 2017-02-05 08:50 | PN- Pulmonary ---
Subjective HPI/Critical Care Issues: Primary status is approaching baseline. Oxygen saturations are improved. Objective Current Medications: Current Medications Sig/Lana Start time Last Medication Dose Route Stop Time Status Admin Acetaminophen 650 MG Q6P PRN 01/25 2215 AC 02/05 PO 0105 Acetaminophen/ 1 TAB Q6 02/01 2359 DC 02/04 Hydrocodone Bitart PO 0442 Albuterol Sulfate 3 ML EVERY 4 HRS/AWAKE 01/26 0815 AC 02/05 INH 0846 Alprazolam 0.5 MG TIDPRN PRN 02/04 1115 AC 02/04 PO 02/11 1114 2239 Amiodarone HCl 400 MG TID 02/02 1101 AC 02/04 PO 2114 Arformoterol Tartrate 15 MCG DAILY 01/26 1000 AC 02/05 INH 0846 Ascorbic Acid 500 MG DAILY 01/26 1000 AC 02/04 PO 0831 Aspirin 81 MG DAILY 01/30 1000 AC 02/04 PO 0832 Benzocaine/Menthol See Dose Q2P PRN 02/04 1115 DC Insts (1) PO Benzocaine/Menthol 1 GEETHA Q2P PRN 02/04 1115 AC 02/05 PO 0105 Budesonide 0.5 MG BID 01/26 1000 AC 02/05 INH 0846 Bupropion HCl 200 MG DAILY 01/26 1000 AC 02/04 PO 0831 Ciprofloxacin 250 MG BID 01/30 1435 AC 02/04 PO 02/08 1400 2115 Clotrimazole 10 MG 5 TIMES A DAY 02/03 1800 AC 02/05 PO 0550 Diltiazem HCl 180 MG BID 02/01 2200 AC 02/04 PO 2115 Docusate Sodium 200 MG AT BEDTIME 01/28 2200 AC 02/04 PO 2114 Ezetimibe 10 MG DAILY 01/26 1000 AC 02/04 PO 0831 Ferrous Sulfate 325 MG DAILY 01/26 1000 AC 02/04 PO 0830 Folic Acid 1 MG DAILY 01/26 1000 AC 02/04 PO 0830 Furosemide 40 MG 7:30 AM, & 4:30 PM 02/01 1630 AC 02/05 PO 0806 Guaifenesin 10 ML .STK-MED ONE 02/04 1153 DC PO 02/04 1154 Guaifenesin 10 ML Q6P PRN 01/28 1200 AC 02/05 PO 0105 Guaifenesin 600 MG DAILY 01/26 1000 AC 02/04 PO 0830 Hydromorphone HCl 2 MG Q4 HRS NEEDED PRN 02/04 1530 AC 02/05 PO 0806 Hydromorphone HCl 2 MG Q3P PRN 02/04 1145 DC 02/04 PO 1149 Levothyroxine Sodium 0.1 MG DAILY AC 01/26 0700 AC 02/05 PO 0551 Lidocaine/Diphenhydr/ 10 ML Q4-6 PRN PRN 02/02 1000 AC 02/05 Alum/Mg/Simeth PO 0811 Losartan Potassium 50 MG DAILY 01/26 1743 AC 02/04 PO 0830 Melatonin 3 MG .STK-MED ONE 02/049 MD PO 02/04 2240 Melatonin 3 MG AT BEDTIME PRN 01/26 1945 AC 02/04 PO 2239 Montelukast Sodium 10 MG AT BEDTIME 01/26 2200 AC 02/04 PO 2113 Nitroglycerin 0.6 MG DAILY 01/26 1000 AC 02/04 TOP 0832 Nystatin 5 ML 4 TIMES/DAY 02/01 1400 AC 02/04 PO 2239 Omeprazole 40 MG DAILY AC 01/26 0700 AC 02/05 PO 0551 Patient Medication 1 UNIT ONE NR 02/04 1145 MD Teaching ED 02/04 1745 Patient Medication 1 UNIT ONE NR 02/04 1130 MD Teaching ED 02/04 1730 Polyethylene Glycol 17 GM DAILY 02/02 1000 AC 02/04 PO 0830 Potassium Chloride 20 MEQ DAILY 01/26 1000 AC 02/04 PO 0830 Pravastatin Sodium 40 MG AT BEDTIME 01/26 2200 AC 02/04 PO 2113 Prednisone 40 MG DAILY 02/05 1000 AC PO 02/07 1001 Prednisone 50 MG DAILY 02/02 1000 DC 02/04 PO 0830 Rivaroxaban 20 MG 1700 02/02 1700 AC 02/04 PO 1825 Roflumilast 500 MCG DAILY 01/26 1000 AC 02/04 PO 0833 Sertraline HCl 200 MG DAILY 01/26 1000 AC 02/04 PO 0831 Sucralfate 1 GM TID 02/04 1000 AC 02/04 PO 2115 Sucralfate 1,000 MG 4 TIMES/DAY 01/25 2200 DC 02/04 PO 0832 Tiotropium [place] 1 PUF DAILY 01/26 1000 AC 02/04 INH 0904 Tramadol HCl 50 MG Q6 PRN 02/04 1130 AC 02/05 PO 0551 Trimethobenzamide HCl 200 MG TIDPRN PRN 01/26 0230 AC IM Dose Instructions: (1)Benzocaine/Menthol: 1 LOZENGE Vital Signs & I&O Last 24 Hrs of Vitals and I&O: Vital Signs Date Time Temp Pulse Resp B/P B/P Pulse O2 O2 Flow FiO2 Mean Ox Delivery Rate 02/05 0812 98.1 81 20 148/72 99 Nasal 2.0L Cannula 02/05 0800 Nasal 2.0L Cannula 02/05 0000 Nasal 2.0L Cannula 02/04 2354 98.1 105 20 128/62 98 Nasal Cannula 02/04 1835 98.4 113 19 132/70 02/04 1825 113 132/70 02/04 1700 98.1 77 20 106/56 98 Nasal Cannula 02/04 1600 Nasal 2.0L Cannula 02/04 1550 99 Nasal 2.0L Cannula 02/04 1158 Nasal 2.0L Cannula Intake & Output 02/05 1600 02/05 0800 02/05 0000 Intake Total 490 490 Output Total Balance 490 490 Intake, IV 10 10 Intake, Oral 480 480 Action saturation 2 L 99% exam for chest shows decreased breath sounds are no wheezes cardiac exam shows an irregular rhythm Impression/Plan Impression/Plan Impression/Plan: 67-year-old with advanced COPD admitted following colonoscopy with increased shortness breath bronchospasm and marked leukocytosis with left shift. Chest x- ray shows only minor abnormalities. CT scan consistent with community-acquired pneumonia. White count has improved after treatment for pseudomonas pneumonia. Patient continues to have thrush which is being treated with Diflucan. Follow- up sputum culture is unrevealing. Recommendations: Taper prednisone. Complete The course of antibiotics. Repeat chest x-ray. Await final recommendations by cardiology. Will consider short-term rehabilitation decrease oxygen to 1 L. Patient is stable to be discharge from pulmonary standpoint to short-term rehabilitation
--- NOTE | 2017-02-05 10:43 | PN- Housestaff ---
See Addendum Subjective Follow-up For: 1. Community-acquired pneumonia. Pseudomonas pneumonia. 2. Acute exacerbation of COPD. 3. Nonspecific T-wave abnormality/nonsustained V. tach. 4. Proximal atrial fibrillation. Subjective: Afebrile, still on A. fib however hemodynamically stable with well controlled heart rate. Patient throat pain improved. Yesterday she had a mechanical fall in the bathroom where she landed on her right knee and also had a mild trauma to her right shoulder. She was examined by me personally, at that time she denies pain, there was no deformities, and there was no limitation on the range of motion. This morning she is complaining of mild pain on the right shoulder. Review of Systems Constitutional: Reports: see HPI. Objective Last 24 Hrs of Vital Signs/I&O Vital Signs Date Time Temp Pulse Resp B/P B/P Pulse O2 O2 Flow FiO2 Mean Ox Delivery Rate 02/05 0942 81 148/72 02/05 0942 81 148/72 02/05 0941 81 148/72 02/05 0853 98 Nasal 2.0L Cannula 02/05 0812 98.1 81 20 148/72 99 Nasal 2.0L Cannula 02/05 0800 Nasal 2.0L Cannula 02/05 0000 Nasal 2.0L Cannula 02/04 2354 98.1 105 20 128/62 98 Nasal Cannula 02/04 1835 98.4 113 19 132/70 02/04 1825 113 132/70 02/04 1700 98.1 77 20 106/56 98 Nasal Cannula 02/04 1600 Nasal 2.0L Cannula 02/04 1550 99 Nasal 2.0L Cannula 02/04 1158 Nasal 2.0L Cannula Intake & Output 02/05 1600 02/05 0800 05 0000 Intake Total 490 490 Output Total Balance 490 490 Intake, IV 10 10 Intake, Oral 480 480 Physical Exam General Appearance: Alert, Oriented X3, Cooperative, No Acute Distress HEENT: Atraumatic, PERRLA, EOMI, Mucous Membr. moist/pink Cardiovascular: Normal S1, Normal S2, No Murmurs, irregular Lungs: diminished air-entry Abdomen: Soft, No Tenderness Neurological: Normal Speech Extremities: No Clubbing, No Cyanosis, No Edema Current Medications: Current Medications Sig/Lana Start time Last Medication Dose Route Stop Time Status Admin Acetaminophen 650 MG .STK-MED ONE 02/05 010 DC PO 02/05 0107 Acetaminophen 650 MG Q6P PRN 01/25 2215 AC 02/05 PO 0105 Acetaminophen/ 1 TAB Q6 02/01 2359 DC 02/04 Hydrocodone Bitart PO 0442 Albuterol Sulfate 3 ML EVERY 4 HRS/AWAKE 01/26 0815 AC 02/05 INH 0846 Alprazolam 0.5 MG TIDPRN PRN 02/04 1115 AC 02/05 PO 02/11 1114 0948 Amiodarone HCl 400 MG TID 02/02 1101 AC 02/05 PO 0942 Arformoterol Tartrate 15 MCG DAILY 01/26 1000 AC 02/05 INH 0846 Ascorbic Acid 500 MG DAILY 01/26 1000 AC 02/05 PO 0944 Aspirin 81 MG DAILY 01/30 1000 AC 02/05 PO 0941 Benzocaine/Menthol See Dose Q2P PRN 02/04 1115 DC Insts (1) PO Benzocaine/Menthol 1 GEETHA Q2P PRN 02/04 1115 AC 02/05 PO 0105 Budesonide 0.5 MG BID 01/26 1000 AC 02/05 INH 0846 Bupropion HCl 200 MG DAILY 01/26 1000 AC 02/05 PO 0944 Ciprofloxacin 250 MG BID 01/30 1435 AC 02/05 PO 02/08 1400 0939 Clotrimazole 10 MG 5 TIMES A DAY 02/03 1800 AC 02/05 PO 0940 Diltiazem HCl 180 MG BID 02/01 2200 AC 02/05 PO 0941 Docusate Sodium 200 MG AT BEDTIME 01/28 2200 AC 02/04 PO 2114 Ezetimibe 10 MG DAILY 01/26 1000 AC 02/05 PO 0944 Ferrous Sulfate 325 MG DAILY 01/26 1000 AC 02/05 PO 0942 Folic Acid 1 MG DAILY 01/26 1000 AC 02/05 PO 0942 Furosemide 40 MG 7:30 AM, & 4:30 PM 02/01 1630 AC 02/05 PO 0806 Guaifenesin 10 ML .STK-MED ONE 02/05 0105 DC PO 02/05 0106 Guaifenesin 10 ML .STK-MED ONE 02/04 1153 DC PO 02/04 1154 Guaifenesin 10 ML Q6P PRN 01/28 1200 AC 02/05 PO 0105 Guaifenesin 600 MG DAILY 01/26 1000 AC 02/05 PO 0942 Hydromorphone HCl 2 MG Q4 HRS NEEDED PRN 02/04 1530 AC 02/05 PO 0806 Hydromorphone HCl 2 MG Q3P PRN 02/04 1145 DC 02/04 PO 1149 Levothyroxine Sodium 0.1 MG DAILY AC 01/26 0700 AC 02/05 PO 0551 Lidocaine/Diphenhydr/ 10 ML Q4-6 PRN PRN 02/02 1000 AC 02/05 Alum/Mg/Simeth PO 0811 Losartan Potassium 50 MG DAILY 01/26 1743 AC 02/05 PO 0942 Melatonin 3 MG .STK-MED ONE 02/049 MO PO 02/04 2240 Melatonin 3 MG AT BEDTIME PRN 01/26 1945 AC 02/04 PO 2239 Montelukast Sodium 10 MG AT BEDTIME 01/26 2200 AC 02/04 PO 2113 Nitroglycerin 0.6 MG DAILY 01/26 1000 AC 02/05 TOP 0935 Nystatin 5 ML 4 TIMES/DAY 02/01 1400 AC 02/05 PO 0936 Omeprazole 40 MG DAILY AC 01/26 0700 AC 02/05 PO 0551 Patient Medication 1 UNIT ONE NR 02/04 1145 MO Teaching ED 02/04 1745 Patient Medication 1 UNIT ONE NR 02/04 1130 MO Teaching ED 02/04 1730 Polyethylene Glycol 17 GM DAILY 02/02 1000 AC 02/05 PO 0942 Potassium Chloride 20 MEQ DAILY 01/26 1000 AC 02/05 PO 0942 Pravastatin Sodium 40 MG AT BEDTIME 01/26 2200 AC 02/04 PO 2113 Prednisone 40 MG DAILY 02/05 1000 AC 02/05 PO 02/07 1001 0943 Prednisone 50 MG DAILY 02/02 1000 DC 02/04 PO 0830 Rivaroxaban 20 MG 1700 02/02 1700 AC 02/04 PO 1825 Roflumilast 500 MCG DAILY 01/26 1000 AC 02/05 PO 0939 Sertraline HCl 200 MG DAILY 01/26 1000 AC 02/05 PO 0944 Sucralfate 1 GM TID 02/04 1000 AC 02/05 PO 0935 Sucralfate 1,000 MG 4 TIMES/DAY 01/25 2200 DC 02/04 PO 0832 Tiotropium [place] 1 PUF DAILY 01/26 1000 AC 02/05 INH 0938 Tramadol HCl 50 MG Q6 PRN 02/04 1130 AC 02/05 PO 0551 Trimethobenzamide HCl 200 MG TIDPRN PRN 01/26 0230 AC IM Dose Instructions: (1)Benzocaine/Menthol: 1 LOZENGE Last 24 Hrs of Lab/Awn Results Last 24 Hrs of Labs/Mics: Laboratory Tests 02/05/17 0556: CBC w Diff MAN DIFF ORDERED, RBC 2.84 L, MCV 91.0, MCH 29.9, RDW 15.1 H, MPV 6.6 L, Gran % 80.9 H, Lymphocytes % 10.3 L, Monocytes % 8.1, Eosinophils % 0.5, Basophils % 0.2, Absolute Granulocytes 20.0 H, Segmented Neutrophils 74, Band Neutrophils 1, Absolute Lymphocytes 2.5, Lymphocytes 10 L, Monocytes 12 H , Absolute Monocytes 2.0 H, Absolute Eosinophils 0.1, Absolute Basophils 0, Metamyelocytes 1, Myelocytes 2 H, Platelet Estimate INCREASED, Polychromasia 1+ , Hypochromic-Microcytic 2+, Poikilocytosis 1+, Anisocytosis 1+, PUBS MCHC 32.8 L Assessment/Plan Assessment: 67 y/o F with PMHx of COPD on 2 L NC, CAD and atrial fibrillation not on anticoagulation who is admitted for community acquired pneumonia. #Community-acquired pneumonia: On day 12 of antibiotics. * Continue ciprofloxacin 250 mg twice a day to finish a total of 14 days #COPD exacerbation: Currently on 2 L oxygen which is her baseline requirement. * We will taper oxygen if oxygen saturation allow * Continue prednisone taper, today she is in 40 mg. * Continue [id number] roflumilast 500 mcg PO daily. * Continue [id number] Spiriva inhaler, Pulmbicort and Brovana nebuliizers. * TRC and nebs. * Continue Mucinex. * Robitussin PRN for cough. #Paroxysmal atrial fibrillation: Patient had a history paroxysmal A. fib, she was in normal sinus rhythm on admission, she developed A. fib while she was on Tikosyn. Tikosyn was stopped and she was managed with IV and Nutren drip. Now she is on the following * Amiodarone at 400mg BID * Cardizem at 180mg BID. * Xarelto for stroke prophylaxis. * Please contact the daughter before attempting any cardioversion #HTN: * Lasix 40 mg PO BID * losartan 50 mg PO daily. #Throat pain secondary to chronic thrush * Switch Vicodin to Dilaudid 2 mg every 4 hours. * Chloraseptic Lozenges q2 * Sucralfate liq TID #Chronic pain * 2 mg Dilaudid by mouth every 4 hours Diet: Heart healthy DVT PPx: Lovenox and ALPs CODE: FULL Problem List: 1. Atrial fibrillation 2. CAP (community acquired pneumonia) Pain Ratin Pain Location: rgiht shoulder, throat and right knee Pain Goal: Remain pain free Pain Plan: See A&P Tomorrow's Labs & Rationales: CBC to f/u WBCs
--- NOTE | 2017-02-05 13:12 | RADIOLOGY REPORT ---
EXAMINATION: XR PORTABLE CHEST CLINICAL INFORMATION: Patient has pneumonia. She is slowly improving. Presumptive diagnosis of worsening of chest finding. We would like to correlate the symptoms with x-ray findings. COMPARISON: Chest x-ray dated 01/25/2017 and multiple older chest x-rays. CT scan of the chest dated 01/28/2017. TECHNIQUE: Portable AP erect view of the chest was obtained. FINDINGS: The cardiomediastinal silhouette is within normal limits in size. Calcification of the aortic arch is seen. Lungs bilaterally are symmetrically expanded. Significant improvement in the previously seen bilateral upper lobe parenchymal opacities is seen with some minimal residual opacity remaining, especially in the extreme left lung apex. Findings are consistent with improving pneumonia. The 0.3 cm nodular densities seen on CT scan in the right upper lobe are not appreciated on this chest x-ray and would be best followed by CT scan as suggested on the prior CT imaging. No pleural effusion or pneumothorax is seen. Bony structures are unremarkable. IMPRESSION: 1. Complete resolution of previously seen bilateral apical lung parenchymal consolidations. Findings are consistent with clinical impression of improving pneumonia. 2. The tiny lung nodules seen on prior chest CT scan are not appreciated by plain film and would be best followed by CT scan in 6 months.
--- NOTE | 2017-02-05 13:19 | RADIOLOGY REPORT ---
EXAMINATION: XR SHOULDER, RIGHT CLINICAL INFORMATION: Pain status post fall. COMPARISON: Left shoulder films dated 07/09/2016. TECHNIQUE: Three views of the right shoulder. FINDINGS: No evidence of acute fracture or dislocation. Slight superior subluxation of the humeral head is seen, suggestive of underlying rotator cuff tear. Slight prominence of the AC joint is seen measuring up to 0.8 cm. Coracoclavicular distance measures 1.1 cm. The right ribs are intact. IMPRESSION: 1. No acute fracture. 2. Borderline measurements for the acromioclavicular joint are obtained, possibly signifying a subtle grade 1 AC joint separation. Consider dedicated AC joint views with and without weights for further assessment.
[2017-02-05] MEDS ORDERED: Cordarone PO (16:17)
[2017-02-05] MEDS ORDERED: HYDROMORPHONE HC2 M1 PO (16:17)
[2017-02-05] MEDS ORDERED: CIPROFLOXACIN250 M1 PO (16:17)
[2017-02-05] MEDS ORDERED: SUCRALFATE1 GM/10 M1 PO (16:18)
[2017-02-05] MEDS ORDERED: XARELTO10 M1 PO (16:18)
[2017-02-05 16:43] VITALS: BP 138/64
--- NOTE | 2017-02-05 18:24 | PN- Cardiology ---
Subjective Subjective: * Breathing is improved. Throat discomfort is also improving. * Atrial fibrillation with contolled heart rate. * Minor fall without injury. Objective Vital Signs and I&Os Vital Signs Date Time Temp Pulse Resp B/P B/P Pulse O2 O2 Flow FiO2 Mean Ox Delivery Rate 02/05 1746 94 Nasal 2.0L Cannula 02/05 1643 98.1 81 20 138/64 / 1553 138/64 02/05 0942 81 148/72 02/05 0942 81 148/72 02/05 0941 81 148/72 02/05 0853 98 Nasal 2.0L Cannula 02/05 0812 98.1 81 20 148/72 99 Nasal 2.0L Cannula 02/05 0800 Nasal 2.0L Cannula 02/05 0000 Nasal 2.0L Cannula 02/04 2354 98.1 105 20 128/62 98 Nasal Cannula 02/04 1835 98.4 113 19 132/70 02/04 1825 113 132/70 Intake & Output 02/05 1600 02/05 0800 02/05 0000 02/04 1600 02/04 0800 02/04 0000 Intake Total 480 490 490 500 260 500 Output Total Balance 480 490 490 500 260 500 Intake, IV 10 10 20 20 Intake, Oral 480 480 480 500 240 480 Physical Exam: General: WD/ WN female in NAD: alert and oriented x 3 NECK: no JVD, no carotid bruit Heart: irregularly irregular No murmur Lungs: no crackles, decreased air movement bilaterally Extremities: No edema Assessment/Plan Assessment/Plan * Tikosyn has not maintained a sinus rhythm. It is not compatible with Amiodarone. Since this medication is not effective and is somewhat undesireable in the setting of Cipro use and contraindicated with Amiodarone, we have stopped this medication. The patient will likely undergo an atrial fibrillation ablation by Dr. Bahena after discharge when her breathing improves. Continue Amiodarone at 400mg BID and Cardizem at 180mg BID. Continue Xarelto for stroke prophylaxis. * This patient is improving with treatment for her pneumonia with associated bronchospasm. * No significant chest discomfort. Continue NTG patch at 0.6mg/hr daily as an antianginal as well as to control her blood pressure. 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 This is a region of a prior KS and does receive collateral flow. I believe she has less bronchospasm off metoprolol. I am not inclined to restart any beta blockers. * Follow up in the office in two weeks. Continue telemetry? No
== END 2017-02-05 17:55 | DRG 190 ==
LOC: ERH 17:21 → 1NO 20:09 → ERHI 20:09 → CRI 20:09 → ENRESERV 21:54 → CANRESERV 21:54 → ENRESERV 22:18 → 1NO 23:26 → CRI 01-31 12:46 → 1NO 02-02 15:38 → ENPENDDIS 02-05 14:46 → 1NO 02-05 17:55
PROVIDERS: Dermatology; Internal Medicine; Physician Assistant; Student in an Organized Health Care Education/Training Program; ADMIT Internal Medicine
DX: J44.1 Chronic obstructive pulmonary disease with (acute) exacerbation (principal); J15.1 Pneumonia due to Pseudomonas; B37.0 Candidal stomatitis; Z99.81 Dependence on supplemental oxygen; I48.0 Paroxysmal atrial fibrillation; I47.1 Supraventricular tachycardia; J44.0 Chronic obstructive pulmonary disease with (acute) lower respiratory infection; Z87.891 Personal history of nicotine dependence; Z79.01 Long term (current) use of anticoagulants; I10 Essential (primary) hypertension; E78.5 Hyperlipidemia, unspecified; K21.9 Gastro-esophageal reflux disease without esophagitis; K58.9 Irritable bowel syndrome, unspecified; M79.7 Fibromyalgia; M19.90 Unspecified osteoarthritis, unspecified site; E03.9 Hypothyroidism, unspecified; Z85.828 Personal history of other malignant neoplasm of skin; F32.9 Major depressive disorder, single episode, unspecified; D53.9 Nutritional anemia, unspecified; I25.10 Atherosclerotic heart disease of native coronary artery without angina pectoris
CPT/HCPCS: 1NP; CCU; 36415; 70360; 73030-RT; 74176; 81001; 82436; 87040; 87070; 87086; 87449; 87450; 87804; 87804-59; 93005; 93010; 93306; 96361; 96365; 96375; J0282; J0696; J0713; J1644; J1650; J1742; J2920; J2930; J3490; J7512; J7605; J7626

== ENCOUNTER 2017-02-15 13:54 | Inpatient (IN) | payer OTHER, MEDICARE ==
[~2017-02-15] VITALS: Ht 167.6 cm; Wt 61.2 kg
[~2017-02-15 13:54] MED LIST changes: +ARTHRITIS PAIN650 M4 PO; +CIPROFLOXACIN250 M1 PO; +Cordarone PO; +DILTIAZEM ER180 M1 PO; +HYDROMORPHONE HC2 M1 PO; +LOSARTAN POTASS50 M1 PO; +NITRO-DUR1 EAC4 TOP; +OMEPRAZOLE40 M1 PO; +SUCRALFATE1 GM/10 M1 PO; +XARELTO10 M1 PO
--- NOTE | 2017-02-15 14:05 | ED GENERAL ADULT ---
History of Present Illness General Chief Complaint: General Adult Stated Complaint: BIBA LOW H/H Source: patient Exam Limitations: no limitations Vital Signs & Intake/Output Vital Signs & Intake/Output Vital Signs Date Time Temp Pulse Resp B/P B/P Pulse O2 O2 Flow FiO2 Mean Ox Delivery Rate 02/15 2100 98.0 98 20 146/65 98 Nasal 2.0L Cannula 02/15 1813 103 20 109/57 02/15 1812 103 20 108/59 02/15 1812 103 20 111/64 02/15 1622 96.4 93 20 116/57 98 Nasal 2.0L Cannula 02/15 1432 99 Room Air 02/15 1402 98.0 105 15 137/77 100 Room Air Allergies Coded Allergies: menotropins (HIVES FROM PERGONAL 11/15/15) apixaban (HEMATOMA TO HIP 02/02/17) Reconcile Medications Acetaminophen (Arthritis Pain Reliever) 650 MG TABLET.ER 2 TAB PO PRN PAIN ( Reported) Albuterol Sulfate 2.5 MG/3 ML (0.083 %) VIAL.NEB 1 Vial INH/DANIKA PRN RESPIRATORY (Reported) Alprazolam 0.5 MG TABLET 1 TAB PO DAILY ANXIETY (Reported) Arformoterol Tartrate (Brovana) 15 MCG/2 ML VIAL.NEB 1 VIAL INH DAILY RESPIRATORY (Reported) Ascorbic Acid (Vitamin C) 500 MG CAPSULE.ER 1 CAP PO DAILY SUPPLEMENT ( Reported) Budesonide (Pulmicort) 0.5 MG/2 ML AMPUL.NEB 1 Vial INH/DANIKA BID COPD ( Reported) Bupropion HCl (Bupropion HCl Sr) 200 MG TABLET.ER 1 TAB PO QAM DEPRESSION ( Reported) Calcium Carbonate/Vitamin D3 (Caltrate 600 + D Tablet) 1 EACH TABLET 1 TAB PO DAILY SUPPLEMENT (Reported) Cholecalciferol (Vitamin D3) (Vitamin D3) 400 UNIT TABLET 1 TAB PO DAILY SUPPLEMENT (Reported) Ciprofloxacin HCl 250 MG TABLET 250 MG PO BID lung infection [Cordarone] 400 MG PO TID heart rate Diltiazem HCl (Diltiazem ER) 180 MG CAPSULE.ER 1 TAB PO DAILY heart rate ( Reported) Docusate Sodium (Colace) 100 MG CAPSULE 2 CAP PO QPM STOOL SOFTENER (Reported ) Ezetimibe (Zetia) 10 MG TABLET 1 TAB PO DAILY CHOLESTEROL (Reported) Ferrous Sulfate 325 MG (65 MG IRON) TABLET 1 TAB PO DAILY SUPPLEMENT ( Reported) Fluticasone/Salmeterol (Advair 250-50 Diskus) 250 MCG-50 MCG/DOSE BLST.W.DEV 1 PUF INH BID BREATHING PROBLEMS (Reported) Folic Acid 1 MG TABLET 1 TAB PO DAILY SUPPLEMENT (Reported) Furosemide (Lasix) 40 MG TABLET 1 TAB PO BID WATER PILL (Reported) Guaifenesin (Mucinex) 600 MG TAB.ER.12H 1 TAB PO DAILY EXPECTORANT (Reported) Hydromorphone HCl 2 MG TABLET 2 MG PO Q4 HRS NEEDED PRN PAIN SCALE 7-10 ( SEVERE) Levothyroxine Sodium 100 MCG TABLET 1 TAB PO DAILY AC THYROID (Reported) Losartan Potassium 50 MG TABLET 1 TAB PO DAILY BP (Reported) Montelukast Sodium 10 MG TABLET 1 TAB PO DAILY COPD (Reported) Nitroglycerin (Nitro-Dur) 0.6 MG/HOUR PATCH.TD24 1 PATCH TOP DAILY HEART ( Reported) [place]-3 Fatty Acids/Fish Oil (Fish Oil 1,000 MG Capsule) 340 MG-1,000 MG CAPSULE 2 CAP PO DAILY SUPPLEMENT (Reported) Omeprazole 40 MG CAPSULE.DR 1 CAP PO DAILY GI (Reported) Potassium Chloride 20 MEQ TAB.ER.PRT 1 TAB PO DAILY SUPPLEMENT (Reported) Pravastatin Sodium (Pravachol) 40 MG TABLET 1 TAB PO QPM CHOLESTEROL ( Reported) Prednisone 10 MG TABLET 1 TAB PO DAILY breathing please take as the following 4 tabs X 3 days 3 tabs X 3 days 2 tabs X 3 days 1 tabs X 3 days then stop Rivaroxaban (Xarelto) 10 MG TABLET 20 MG PO 1700 blood thinner please follow with cardilogy as an out patinet to refill this medication Roflumilast (Daliresp) 500 MCG TABLET 1 TAB PO DAILY COPD (Reported) Sertraline HCl (Zoloft) 100 MG TABLET 2 TAB PO DAILY DEPRESSION (Reported) Sucralfate 1 GRAM/10 ML ORAL.SUSP 1 GM PO TID THROAT PAIN Tiotropium [place] (Spiriva) 18 MCG CAP.W.DEV 1 CAP INH DAILY copd Reason to Stop at ADM:TRC NEBS ORDERS Vitamin E (Dl,Tocopheryl Acet) (Vitamin E) 400 UNIT CAPSULE 1 TAB PO DAILY SUPPLEMENT (Reported) Triage Note: PT TO ED FOR "ABNORMAL LABS" PER PT "MY H AND H ARE LOW" PT REPORTING SHE HAS HAD MULTIPLE EPISODES OF SAME OVER PAST FEW YEARS REQUIRING TRANSFUSIONS. PT DENIES CP, SOB, MIRANDA, DIZZINESS. Triage Nurses Notes Reviewed? yes Onset: Abrupt Duration: day(s): Timing: recent history HPI: 02/15/17 3 pm 67-year-old female presents to the emergency department complaining of shortness of breath and exhaustion. The patient states she was referred to the hospital for a blood transfusion as her numbers have been dropping significantly according to the patient. She said that she had tested positive for rectal bleeding yesterday. The patient is status post recovery from double pneumonia. She says she has a history of A. fib and is currently on xarelto. The onset of the symptoms have been abrupt, the duration is really unclear, the severity significant; as her symptoms required her to come to the emergency department for care. Past History Travel History Traveled to [place] past 21 day No Medical History Any Pertinent Medical History? 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 Other Medical Hx: Irritable bowel syndrome viral meningitis [id number] hypothyroidism right cataract extraction with IOL implant depression arthritis HTN (HYPERTENSION) (401.9 | I10) CAD s/p NE COPD tonsillectomy GERD discoid lupus Pneumonia miscarriage in 1990 appendectomy ulcerative colitis eczema surgical repair of hiatal hernia skin cancer Atrial Fibrillation History of MRSA: No History of VRE: No History of CDIFF: No Tetanus Vaccine: 02/07/16 Surgical History Surgical History: appendectomy, surgical repair of hiatal hernia tonsillectomy Psychosocial History Who do you live with Patient/Self Services at Home Oxygen What is your primary language Kiswahili Tobacco Use: Current Daily Use Daily Tobacco Use Amount/Type: => 5 Cigarettes daily ETOH Use: denies use Illicit Drug Use: denies illicit drug use Family History Family History, If Any: MOTHER FH: COPD (chronic obstructive pulmonary disease) FH: heart disease FATHER Alzheimer's disease Hx Contributory? No Review of Systems Review of Systems Constitutional: Denies: fever. EENTM: Reports: no symptoms. Respiratory: Reports: short of breath. Cardiovascular: Denies: chest pain. GI: Denies: abdominal pain. Genitourinary: Reports: no symptoms. Musculoskeletal: Reports: joint pain. Skin: Denies: rash. Neurological/Psychological: Reports: no symptoms. Hematologic/Endocrine: Denies: bruising, bleeding. Immunologic/Allergic: Reports: no symptoms. Physical Exam Physical Exam General Appearance: alert, awake, anxious, mild distress Head: atraumatic, normal appearance Eyes: Bilateral: normal appearance, PERRL, EOMI, pale conjunctivae. Ears, Nose, Throat: normal pharynx, normal ENT inspection Neck: normal inspection Respiratory: crackles Cardiovascular: regular rate/rhythm Peripheral Pulses: 3+ dorsalis pedis (R), 3+ dorsalis pedis (L) Gastrointestinal: soft, non-tender Rectal: normal rectal tone, heme positive stool Back: decreased range of motion Extremities: pedal edema Neurologic/Psych: no motor/sensory deficits, awake, alert, oriented x 3 Skin: pallor Core Measures ACS in differential dx? No CVA/TIA Diagnosis: No Severe Sepsis Present: No Septic Shock Present: No Progress Differential Diagnoses I considered the following diagnoses in my evaluation of the patient: [ Symptomatic anemia, GI bleed, acute coronary syndrome, pulmonary embolism, pneumonia] Plan of Care: Orders Procedure Date/time Status Nothing by Mouth 02/16 B Active Patient Data 02/[address] in observation 02/15 1921 Active Vital Signs 02/15 1921 Active Code Status 02/15 1921 Active EKG 02/16 1920 Active MISTAKE 02/15 1805 Active BLOOD PRODUCT PICKUP 02/15 1748 Active LEUKOCYTE POOR (PACKED CELLS) 02/15 1537 Active TROPONIN LEVEL 02/15 1532 Complete COMPREHENSIVE METABOLIC PANEL 02/15 1532 Complete CBC WITHOUT DIFFERENTIAL 02/15 1532 Complete B-TYPE NATRIURETIC PEP (BNP) 02/15 1532 Complete TYPE & SCREEN (NOT X-MATCH) 02/15 153 Active Laboratory Tests 02/15/17 1620: Anion Gap 7, Estimated GFR > 60, BUN/Creatinine Ratio 28.8 H, Glucose 100 H, Calcium 8.7, Total Bilirubin 0.2, AST 20, ALT 46, Alkaline Phosphatase 65, Troponin I 0.01, [id number]-Rpdcvyrhxkb Pept 1570 H, Total Protein 5.6 L, Albumin 3.5, Globulin 2.1, Albumin/Globulin Ratio 1.7, CBC w Diff MAN DIFF ORDERED, RBC 2.16 L, MCV 94.0, MCH 29.8, RDW 19.1 H, MPV 5.8 L, Gran % 91.6 H, Lymphocytes % 4.5 L, Monocytes % 3.1, Eosinophils % 0.8, Basophils % 0 L, Absolute Granulocytes 12.6 H, Segmented Neutrophils 89 H, Band Neutrophils 2, Absolute Lymphocytes 0.6 L, Lymphocytes 8 L, Absolute Monocytes 0.4, Absolute Eosinophils 0.1, Absolute Basophils 0, Metamyelocytes 1, Nucleated RBCs 1 H, Platelet Estimate INCREASED, Polychromasia 1+, Hypochromic-Microcytic 2+, Basophilic Stippling 1+, Anisocytosis 2+, Macrocytic Cells 1+, Ovalocytes FEW, Elliptocytes RARE, PUBS MCHC 31.7 L Labs were sent. The patient was placed on oxygen and a monitor. (MATTEO JONES DO) Initial ED EKG: pending Departure Departure Disposition: STILL A PATIENT Condition: Stable Clinical Impression Primary Impression: Anemia Secondary Impressions: Dyspnea, GI bleed Referrals: DEDE MARION MD (PCP/Family) Departure Forms: Customer Survey General Discharge Information Comments Chest x-ray MPRESSION: Increased patchy left basilar opacity may represent atelectasis or pneumonia. 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 <Electronically signed in Other Vendor System> SIGNED BY: GEE GILMAN MD 02/15 Observation Note Spoke With: ASIA TAI MD Physician Advisor Notified: PEDRO ETIENNE,DEDE Romo Place Patient In: Non-ED OBS Care Area Rationale for Observation: My rational for observation is as follows [the patient is being placed in observation to exclude fluid overload, slow transfusion, consider GI consultation repeat hemoglobin and hematocrit.]. Critical Care Note Critical Care Note Critical Care Time: non-applicable
[2017-02-15 16:33] LABS: ABSOLUTE BASOPHIL COUNT 0 /CUMM (0.0-0.2); ABSOLUTE EOSINOPHIL COUNT 0.1 /CUMM (0.0-0.7); ABSOLUTE GRANULOCYTE CT 12.6 /CUMM (1.4-6.5); ABSOLUTE LYMPH COUNT 0.6 /CUMM (1.2-3.4); ABSOLUTE MONOCYTE COUNT 0.4 /CUMM (0.10-0.60); BASOPHIL % 0 % (0.0-2.0); EOSINOPHIL % 0.8 % (0-5); GRANULOCYTE % 91.6 % (42.2-75.2); HEMATOCRIT 20.3 % (37-47); MEAN CORPUSCULAR HGB 29.8 PG (27.0-31.0); MEAN CORPUSCULAR HGB CONC 31.7 G/DL (33.0-37.0); MEAN PLATELET VOLUME 5.8 FL (7.4-10.4); PLATELET COUNT 476 /CUMM (130-400); RBC DISTRIBUTION WIDTH 19.1 % (11.5-14.5); RED BLOOD CELL CT 2.16 /CUMM (4.20-5.40); WHITE BLOOD CELL COUNT 13.8 /CUMM (4.8-10.8)
--- NOTE | 2017-02-15 19:50 | RADIOLOGY REPORT ---
EXAMINATION: XR PORTABLE CHEST CLINICAL INFORMATION: Pneumonia, anemia. COMPARISON: 02/05/2017 TECHNIQUE: Portable frontal view of the chest was obtained. FINDINGS: The lungs are well expanded. Patchy left basilar opacity. No edema or effusion. No pneumothorax. The cardiomediastinal silhouette is within normal limits of size, with a calcified aorta. IMPRESSION: Increased patchy left basilar opacity may represent atelectasis or pneumonia.
--- NOTE | 2017-02-15 20:04 | History & Physical ---
"CASSIE SUGGS MD 02/15/172002: General Information and HPI MD Statement: I have seen and personally examined STEPH LEOS and documented this H&P. The patient is a 67 year old F who presented with a patient stated chief complaint of [symptomatic anemia]. Source of Information: patient Exam Limitations: no limitations History of Present Illness: 67-year-old female with PMH of COPD, atrial fibrillation on xarelto, HTN, HLD, anxiety, depression, hypothyroidism, fibromyalgia, iron deficiency anemia, was brought in from pulmonary rehab for PRBC transfusion for symptomatic anemia. Her h/h on presentation was 6.4/20.3. On February 13, hg was 7, and on February 05, it was 8.5. She feels exahusted and run down. Patient has had anemia and has been following up with Dr. Woods and Dr. Steiner. She underwent double baloon enteroscopy on January 21, which revealed 5 polyps in the stomach, and unimpressive colonoscopy findings. She is supposed to follow up with Dr. Steiner in March. She has had guaiac positive stool in the past and has hemorrhoids. She denies bright red blood recently, but guaiac done in the ED was positive. She is on iron supplement, hence her stool has always been black in color. Patient reports history of transfusion in the past, which was complicated of heart failure requiring intubation. Hence she needs to be closely monitored while she is receiving blood transfusions. Of note, patient was on eliquis in the past for atrial fibrillation, she reverted back to NSR for about 5 months, hence eliquis discontinued. Post endoscopy/colonoscopy on january 21, she went back into atrial fibrillation and was complaining of cough with yellow/grayish sputum. She was admitted to the hospital with pneumonia and was started on xarelto. She was discharged to pulmonary rehab on prednisone (almost at the end of her taper) and ciprofloxacin for 2 weeks. She continues to have cough productive of yellow sputum. She is reporting shortness of breath and subjective fever, although she has been afebrile in the facility and in the ED. CXR reveals increased patchy left basilar opacity, which could be atelectasis vs pna. We will watch her off antibiotics for now. She also noted bilateral leg swelling over the past week, that has significantly improved on the day of admission. Probnp 1570 without obvious chf symptoms. She has chronic shoulder pain, for which she takes dilaudid. At baseline, she is constipated. Over the past year, she has lost 50 lbs, and over the past couple months, she has lost about 36lbs. She admits to decrease in appetite. Other than anemia, labs were significant for leukocytosis wbc 13.8, no bands, but patient has been on prednisone, hence it is most likely reactive. Na 133L, CO2 32. Allergies/Medications Allergies: Coded Allergies: menotropins (HIVES FROM PERGONAL 11/15/15) apixaban (HEMATOMA TO HIP 02/02/17) Home Med list Acetaminophen (Arthritis Pain Reliever) 650 MG TABLET.ER 2 TAB PO PRN PAIN ( Reported) Albuterol Sulfate 2.5 MG/3 ML (0.083 %) VIAL.NEB 1 Vial INH/DANIKA PRN RESPIRATORY (Reported) Alprazolam 0.5 MG TABLET 1 TAB PO DAILY ANXIETY (Reported) Arformoterol Tartrate (Brovana) 15 MCG/2 ML VIAL.NEB 1 VIAL INH DAILY RESPIRATORY (Reported) Ascorbic Acid (Vitamin C) 500 MG CAPSULE.ER 1 CAP PO DAILY SUPPLEMENT ( Reported) Budesonide (Pulmicort) 0.5 MG/2 ML AMPUL.NEB 1 Vial INH/DANIKA BID COPD ( Reported) Bupropion HCl (Bupropion HCl Sr) 150 MG TABLET.ER 1 TAB PO QAM DEPRESSION ( Reported) Calcium Carbonate/Vitamin D3 (Caltrate 600 + D Tablet) 1 EACH TABLET 1 TAB PO DAILY SUPPLEMENT (Reported) Cholecalciferol (Vitamin D3) (Vitamin D3) 400 UNIT TABLET 1 TAB PO DAILY SUPPLEMENT (Reported) Ciprofloxacin HCl 250 MG TABLET 250 MG PO BID lung infection [Cordarone] 400 MG PO TID heart rate Diltiazem HCl (Diltiazem ER) 180 MG CAPSULE.ER 1 TAB PO DAILY heart rate ( Reported) Docusate Sodium (Colace) 100 MG CAPSULE 2 CAP PO QPM STOOL SOFTENER (Reported ) Ezetimibe (Zetia) 10 MG TABLET 1 TAB PO DAILY CHOLESTEROL (Reported) Ferrous Sulfate 325 MG (65 MG IRON) TABLET 1 TAB PO DAILY SUPPLEMENT ( Reported) Fluticasone/Salmeterol (Advair 250-50 Diskus) 250 MCG-50 MCG/DOSE BLST.W.DEV 1 PUF INH BID BREATHING PROBLEMS (Reported) Folic Acid 1 MG TABLET 1 TAB PO DAILY SUPPLEMENT (Reported) Furosemide (Lasix) 40 MG TABLET 1 TAB PO BID WATER PILL (Reported) Guaifenesin (Mucinex) 600 MG TAB.ER.12H 1 TAB PO DAILY EXPECTORANT (Reported) Hydromorphone HCl 2 MG TABLET 2 MG PO Q4 HRS NEEDED PRN PAIN SCALE 7-10 ( SEVERE) Levothyroxine Sodium 100 MCG TABLET 1 TAB PO DAILY AC THYROID (Reported) Losartan Potassium 50 MG TABLET 1 TAB PO DAILY BP (Reported) Montelukast Sodium 10 MG TABLET 1 TAB PO DAILY COPD (Reported) Nitroglycerin (Nitro-Dur) 0.6 MG/HOUR PATCH.TD24 1 PATCH TOP DAILY HEART ( Reported) Diamond-3 Fatty Acids/Fish Oil (Fish Oil 1,000 MG Capsule) 340 MG-1,000 MG CAPSULE 2 CAP PO DAILY SUPPLEMENT (Reported) Omeprazole 40 MG CAPSULE.DR 1 CAP PO DAILY GI (Reported) Potassium Chloride 20 MEQ TAB.ER.PRT 1 TAB PO DAILY SUPPLEMENT (Reported) Pravastatin Sodium (Pravachol) 40 MG TABLET 1 TAB PO QPM CHOLESTEROL ( Reported) Prednisone 10 MG TABLET 1 TAB PO DAILY breathing please take as the following 4 tabs X 3 days 3 tabs X 3 days 2 tabs X 3 days 1 tabs X 3 days then stop Rivaroxaban (Xarelto) 10 MG TABLET 20 MG PO 1700 blood thinner please follow with cardilogy as an out patinet to refill this medication Roflumilast (Daliresp) 500 MCG TABLET 1 TAB PO DAILY COPD (Reported) Sertraline HCl (Zoloft) 100 MG TABLET 2 TAB PO DAILY DEPRESSION (Reported) Sucralfate 1 GRAM/10 ML ORAL.SUSP 1 GM PO TID THROAT PAIN Tiotropium [place] (Spiriva) 18 MCG CAP.W.DEV 1 CAP INH DAILY copd Reason to Stop at ADM:TRC NEBS ORDERS Vitamin E (Dl,Tocopheryl Acet) (Vitamin E) 400 UNIT CAPSULE 1 TAB PO DAILY SUPPLEMENT (Reported) Past History Travel History Traveled to [place] past 21 day No Medical History Neurological: meningitis (viral in 2008) EENT: cataracts (on right with IOL), hearing loss Cardiovascular: AFIB, CAD (s/p FL), hypertension, hyperlipidemia, [place] BLOCKED ARTERY atrial fibrillation PHARMACEUTICAL CONVERSION WITH TIKOSYN Respiratory: COPD, pneumonia, 2L N/C O2 PRN Gastrointestinal: GERD, irritable bowel syndrome, ULCERATIVE COLITIS Hepatic: NONE Renal: NONE Musculoskeletal: fibromyalgia, osteoarthritis Psychiatric: anxiety, depression, PTSD fibromyalgia Endocrine: hypothyroidism Blood Disorders: anemia Cancer(s): SKIN CA (skin cancer) BUNDLE SHAKER/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: NONE Other Medical Hx: Irritable bowel syndrome viral meningitis [id number] hypothyroidism right cataract extraction with IOL implant depression arthritis HTN (HYPERTENSION) (401.9 | I10) CAD s/p [place] COPD tonsillectomy GERD discoid lupus Pneumonia miscarriage in 1990 appendectomy ulcerative colitis eczema surgical repair of hiatal hernia skin cancer Atrial Fibrillation History of MRSA: No History of VRE: No History of CDIFF: No Tetanus Vaccine: 02/07/16 Surgical History Surgical History: appendectomy, surgical repair of hiatal hernia tonsillectomy Past Family/Social History Family History Relations & Conditions if any MOTHER FH: COPD (chronic obstructive pulmonary disease) FH: heart disease FATHER Alzheimer's disease Psychosocial History Who Do You Live With? child Services at Home: O[employer] Primary Language: Niuean ETOH Use: denies use Illicit Drug Use: denies illicit drug use Functional Ability ADLs Independent: dressing, eating, toileting, bathing. Ambulation: independent IADLs Independent: shopping, housework, finances, food prep, telephone, transportation , medication admin. Review of Systems Review of Systems Constitutional: Reports: fever (subjective fever, afebrile ), weakness. Denies: chills. EENTM: Denies: visual changes. Cardiovascular: Reports: edema, palpitations, peripheral edema. Denies: chest pain, orthopena. Respiratory: Reports: cough, short of breath, sputum production, wheezing. GI: Reports: constipation. Denies: abdominal pain, diarrhea. Genitourinary: Denies: dysuria. Exam & Diagnostic Data Last 24 Hrs of Vital Signs/I&O Vital Signs Date Time Temp Pulse Resp B/P B/P Pulse O2 O2 Flow FiO2 Mean Ox Delivery Rate 02/15 2226 97.8 108 20 124/58 100 Nasal 2.0L Cannula 02/15 2100 98.0 98 20 146/65 98 Nasal 2.0L Cannula 02/15 1813 103 20 109/57 02/15 1812 103 20 108/59 02/15 181 103 20 111/64 02/15 1622 96.4 93 20 116/57 98 Nasal 2.0L Cannula 02/15 1432 99 Room Air 02/15 1402 98.0 105 15 137/77 100 Room Air Intake & Output 02/16 0800 02/16 0000 02/15 1600 Intake Total Output Total 500 Balance -500 Output, Urine 500 Patient 61.235 kg Weight Weight Reported by Patient Measurement Method Physical Exam General Appearance Alert, Oriented X3, Cooperative, No Acute Distress Skin pale HEENT Atraumatic, PERRLA, EOMI, Mucous Membr. moist/pink, pale conjunctiva Neck Supple, No JVD, +2 Carotid Pulse wo Bruit, No LAD Lymphatic Axillary nl, Cervical nl Cardiovascular Normal S1, Normal S2, irregularly irregular rate Lungs diffuse exp wheezes over all lung gutierrez Abdomen Normal Bowel Sounds, Soft, No Tenderness Neurological Normal Speech Extremities no edema on right lower extremity 1+ pitting edema of left lower extremity up to the ankle Vascular Normal Pulses, Pulses Symmetrical, normal cap refill Last 24 Hrs of Labs/Wan: Laboratory Tests 02/15/17 1620: Anion Gap 7, Estimated GFR > 60, BUN/Creatinine Ratio 28.8 H, Glucose 100 H, Calcium 8.7, Total Bilirubin 0.2, AST 20, ALT 46, Alkaline Phosphatase 65, Troponin I 0.01, Wjt-A-Epctlycutpr Pept 1570 H, Total Protein 5.6 L, Albumin 3.5, Globulin 2.1, Albumin/Globulin Ratio 1.7, CBC w Diff MAN DIFF ORDERED, RBC 2.16 L, MCV 94.0, MCH 29.8, RDW 19.1 H, MPV 5.8 L, Gran % 91.6 H, Lymphocytes % 4.5 L, Monocytes % 3.1, Eosinophils % 0.8, Basophils % 0 L, Absolute Granulocytes 12.6 H, Segmented Neutrophils 89 H, Band Neutrophils 2, Absolute Lymphocytes 0.6 L, Lymphocytes 8 L, Absolute Monocytes 0.4, Absolute Eosinophils 0.1, Absolute Basophils 0, Metamyelocytes 1, Nucleated RBCs 1 H, Platelet Estimate INCREASED, Polychromasia 1+, Hypochromic-Microcytic 2+, Basophilic Stippling 1+, Anisocytosis 2+, Macrocytic Cells 1+, Ovalocytes FEW, Elliptocytes RARE, PUBS MCHC 31.7 L Diagnostic Data CXR Results EXAMINATION: XR PORTABLE CHEST CLINICAL INFORMATION: Pneumonia, anemia. COMPARISON: 02/05/2017 TECHNIQUE: Portable frontal view of the chest was obtained. FINDINGS: The lungs are well expanded. Patchy left basilar opacity. No edema or effusion. No pneumothorax. The cardiomediastinal silhouette is within normal limits of size, with a calcified aorta. IMPRESSION: Increased patchy left basilar opacity may represent atelectasis or pneumonia. DICTATED BY: KALINA ETIENNE,GEE DATE/TIME DICTATED:02/15/171944 Assessment/Plan Assessment: 67-year-old female with PMH of COPD, atrial fibrillation on xarelto, HTN, HLD, anxiety, depression, hypothyroidism, fibromyalgia, iron deficiency anemia, was brought in from pulmonary rehab for PRBC transfusion for symptomatic anemia. She was transfused 2 units of PRBC in the ED. Patient is under observation. She needs to be closely monitored during blood transfusions as she has history of heart failure requiring intubation when she was tranfused in the past. We will obtain GI consult for the anemia, pt follows up with Dr. Steiner. We will also obtain cardiology consult as we are currently holding xarelto. Problem list: # Symptomatic anemia # Recently treated pneumonia # Thrush # Chronic pain # Symptomatic anemia - Her h/h on presentation was 6.4/20.3. On February 13, hg was 7, and on February 05, it was 8.5. * S/p 2 units of PRBC transfusion * Follow up CBC in am, goal > 8 * cardio consult for holding xarelto * Gi consult for anemia * courtesy call to Dr. Woods * Continue ferrous sulfate * f/u tsh,ft4,iron,tibc,ferritin,b12,folate level # Atrial fibrillation * Hold xarelto * continue amiodarone 400 tid , diltiazem CD 180 daily # Recently treated pneumonia # COPD - Completed 2 week course of cipro - CXR shows INCREASED left basilar opacity * Monitor off abx * Continue prednisone taper * courtesy call to Dr. Burch if patient gets admitted, currently under observation * trc/nebs, symbicort , mucinex, singulair # Thrush * magic mouth wash # Chronic pain * Dilaudid 2 mg q4p severe pain, roxicodone 5mg q6p moderate pain, tylenol 650 q6p mild # Continue home meds * Bupropion 150 mg qam, sertraline, zetia, pravastatin, levothyroxine, lasix 40 bid, kdur, losartan 50 daily, nitroglycerin patch, colace, vitamin supplement, omeprazole Diet: Heart healthy DVT ppx: mech, no pharm due to symptomatic anemia FULL CODE As Ranked By This Provider Problem List: 1. Symptomatic anemia Core Measures/Miscellaneous Acute Coronary Syndrome ACS Diagnosis: No Cerebrovascular Accident CVA/TIA Diagnosis: No Congestive Heart Failure CHF Diagnosis: No Venous Thromboembolism VTE Risk Factors: Age > 40 No Mech VTE prophylaxis d/t: No contraindications No VTE Pharm Prophylaxis d/t: Active bleeding (symptomatic anemia) VTE Diagnosis: No VTE Type: NONE VTE Confirmed by (Test): NONE Severe Sepsis Severe Sepsis Present: No Septic Shock Septic Shock Present: No Miscellaneous Documentation Attending Case Discussed With: ASIA TAI MD Primary Care Physician: DEDE MARION MD Patient sees these Specialists Dr. Woods hematology Dr. Pandya GI Dr. Burch pulmonology Level of Patient Care: General Medicine GAUTAM TAI MD 02/16/17 0621: Attending MD Review Statement Attending Statement Attending MD Statement: examined this patient, discuss w/resident/PA/DAYCARE MANAGER, agreed w/resident/PA/DAYCARE MANAGER Attending Assessment/Plan: 67 yo F with h/o HTN, CAD s/p IWMI, severe COPD on 2L O2 with multiple exacerbations, chronic diastolic heart failure, depression, anxiety, iron deficiency anemia, Afib s/p cardioversion reverted back to Afib currently on xarelto, was recently admitted to [facility] (01/25 02/05) for pseudomonas pneumonia and COPD exacerbation, and discharged to [facility]. She has been fatigued, dyspneic and weak for the past few days. She was scheduled to be discharged home on February 16. She had blood work done which showed low H and H and hence, she was sent to ER for blood transfusion. She denies chest pain, palpitations, lightheadedness. She follows Dr. Woods for anemia and is on iron supplements. She has guaiac positive stools. She was referred to [facility] by Dr. Pandya for double baloon enteroscopy which she had earlier this month. EGD showed 5 polpys in the stomach that were cauterized and colonoscopy was unremarkable. She is scheduled to follow up with Dr. Pandya in March. She reports dark stools 2/2 iron use, but denies BRBPR or hematemesis. She denies excessive NSAID use. Vitals stable except for tachycardia. Exam: AAO, in no acute distress, pallor+. Chest scattered expiratory wheeze, Heart S1S2 irreg irreg, Abd soft, NT. LE trace edema. Labs: WBC 13.8, bands 2, H/H: 6.4/20.3, bicarb 32, BUN 23, trop neg. CXR: increased patchy left basilar opacity ?atelectasis. EKG: Afib. 1. Symptomatic anemia, acute on chronic anemia. GM 23 Obs, type and crossmatch, transfuse 2 units PRBC, recheck CBC in AM, guaiac all stools, goal Hb > 8.0. GI consult in AM. Check iron studies, B12 and folic acid. Continue PPI. Hold xarelto. Consult Cardio as we will be holding xarelto. Hematology consult (Dr. Woods) as patient follows up with him. Chesk TSH and free T4. 2. H/o pseudomonas pneumonia and COPDE. Patient has completed antibiotic course with Cipro. Will complete prednisone taper that ends on February 17. Continue TRC nebs and supportive care. There is an increased left basilar infiltrate on CXR today. I am not convinced to treat this, her leukocytosis is 2/2 steroid use. Will provide IST and monitor off antibiotics for now. DVT ppx Alps. Full code. REGI ETIENNE,[facility] 02/16/17 0635: Resident Review Statement Resident Statement: examined this patient, discussed with application support intern, agreed with application support intern, discussed with family Other Findings: 67-year-old woman with a PMH of COPD, atrial fibrillation on xarelto, HTN, HLD, anxiety, depression, hypothyroidism, fibromyalgia, iron deficiency anemia managed by Dr. Woods, was brought in from pulmonary rehab for PRBC transfusion for symptomatic anemia. She had heme positive stoool on rectal exam in the ED. She was transfused 2 units of PRBC and is under observation. Of note she has had extensive workup for lower GI bleeding that has yielded no etiology in the past. She was referred to [facility] by Dr. Pandya for double baloon enteroscopy which she had earlier this month. EGD showed 5 polpys in the stomach that were cauterized and colonoscopy was unremarkable. She is scheduled to follow up with Dr. Pandya in March. She reports dark stools 2/2 iron use, but denies bright red blood par rectum or hematemesis. She denies excessive NSAID use. Her hemoglobin and hematocrit today on presentation was 6.4/20.3. On February 13, hb was 7, and on February 05, it was 8.5. Physical Exam General Appearance: alert, awake, anxious, mild distress Head: atraumatic, normal appearance Eyes: Bilateral: normal appearance, PERRL, EOMI, pale conjunctivae. Ears, Nose, Throat: normal pharynx, normal ENT inspection Neck: normal inspection Respiratory: crackles Cardiovascular: regular rate/rhythm Peripheral Pulses: 3+ dorsalis pedis (R), 3+ dorsalis pedis (L) Gastrointestinal: soft, non-tender Back: decreased range of motion Extremities: pedal edema Neurologic/Psych: no motor/sensory deficits, awake, alert, oriented x 3 Skin: pallor Labs WBC 13.8, bands 2, H/H: 6.4/20.3, bicarb 32, BUN 23, trop neg. Imaging CXR: increased patchy left basilar opacity ?atelectasis. EKG: Afib. Problem list: 1. Symptomatic anemia 2. History of COPD 3. Recently treated pneumonia 4. Afib on xarelto Plan -Admit to general medicine - Follow up CBC in am, goal > 8 -GI consult in AM for lower GI bleeding -Hold xarelto -Cardio consult for holding xarelto -Continue amiodarone 400 tid , diltiazem CD 180 daily -Please inform patient's tortilla maker Dr. Woods -Continue ferrous sulfate -Do TSH,ft4,iron,tibc,ferritin,b12,folate level -TRC evaluation for nebulizer therapy - Continue home medications symbicort , mucinex, singulair -Complete prednisone taper 10 mg daily X 2 days then stop -Continue medications for pain Dilaudid 2 mg q4p severe pain, roxicodone 5mg q6p moderate pain, tylenol 650 q6p mild -Continue home meds: Bupropion 150 mg qam, sertraline, zetia, pravastatin, levothyroxine, lasix 40 bid, kdur, losartan 50 daily, nitroglycerin patch, colace, vitamin supplement, omeprazole Diet: Heart healthy DVT ppx: ALPS, no pharm due to symptomatic anemia and GI bleed FULL CODE"
[2017-02-15 22:26] VITALS: BP 124/58
--- NOTE | 2017-02-16 06:56 | Cons- Gastroenterology ---
"General Information and HPI Consulting Request Date of Consult: 02/16/17 Requested By: ABIDA ETIENNE,ASIA Reason for Consult: Symptomatic iron deficiency anemia, history of AVMs. Pt s/p double balloon enteroscopy on 12/07. Source of Information: patient, old records Exam Limitations: no limitations History of Present Illness: Ms. Nagy is a 67 year old female with multiple medical problems including COPD, paroxysmal atrial fibrillation currently on Xarelto, and iron deficiency anemia secondary to small bowel AVMs for which she recently underwent a double balloon enterosocopy with cautery of 5 AVMs who was sent in from pulmonary rehab yesterday for worsening fatigue and a falling hgb from 8.5 on February 05 to 6.4 yesterday. She had been discharged to pulmonary rehab about 10 days ago after an admission for a PNA which was treated with antibiotics and she was also restarted on anticoagulation with xarelto as she reverted back into atrial fibrillation and she failed 'chemical cardioversion'. She has some fatigue and some shortness of breath, but she denies chest pain, lighthadedness and she has not had any syncopal episodes. She is on supplemental iron which causes her stools to be dark, but the stools are well formed and she is without any brbpr. She is also without any abdominal pain with eating, heartburn, vomiting or dysphagia. She does have some consnstipation with the iron which responds to miralax and colace. On arrival to the ER she was hemodynamically stable and afebrile. She was noted to have guaiac postive stool, but no red blood or melena was appreciated. She was admitted to the medical service, had her xarelto held and was transfused with 2 units of PRBCs. Allergies/Medications Allergies: Coded Allergies: menotropins (HIVES FROM PERGONAL 11/15/15) apixaban (HEMATOMA TO HIP 02/02/17) Home Med List: Acetaminophen (Arthritis Pain Reliever) 650 MG TABLET.ER 2 TAB PO PRN PAIN ( Reported) Albuterol Sulfate 2.5 MG/3 ML (0.083 %) VIAL.NEB 1 Vial INH/DANIKA PRN RESPIRATORY (Reported) Alprazolam 0.5 MG TABLET 1 TAB PO DAILY ANXIETY (Reported) Amiodarone HCl 200 MG TABLET 1 TAB PO DAILY ARRYTHMIA Arformoterol Tartrate (Brovana) 15 MCG/2 ML VIAL.NEB 1 VIAL INH DAILY RESPIRATORY (Reported) Ascorbic Acid (Vitamin C) 500 MG CAPSULE.ER 1 CAP PO DAILY SUPPLEMENT ( Reported) Budesonide (Pulmicort) 0.5 MG/2 ML AMPUL.NEB 1 Vial INH/DANIKA BID COPD ( Reported) Bupropion HCl (Bupropion HCl Sr) 150 MG TABLET.ER 1 TAB PO QAM DEPRESSION ( Reported) Calcium Carbonate/Vitamin D3 (Caltrate 600 + D Tablet) 1 EACH TABLET 1 TAB PO DAILY SUPPLEMENT (Reported) Cholecalciferol (Vitamin D3) (Vitamin D3) 400 UNIT TABLET 1 TAB PO DAILY SUPPLEMENT (Reported) Diltiazem HCl (Diltiazem ER) 180 MG CAPSULE.ER 1 TAB PO DAILY heart rate ( Reported) Docusate Sodium (Colace) 100 MG CAPSULE 2 CAP PO QPM STOOL SOFTENER (Reported ) Ezetimibe (Zetia) 10 MG TABLET 1 TAB PO DAILY CHOLESTEROL (Reported) Ferrous Sulfate 325 MG (65 MG IRON) TABLET 1 TAB PO DAILY SUPPLEMENT ( Reported) Fluticasone/Salmeterol (Advair 250-50 Diskus) 250 MCG-50 MCG/DOSE BLST.W.DEV 1 PUF INH BID BREATHING PROBLEMS (Reported) Folic Acid 1 MG TABLET 1 TAB PO DAILY SUPPLEMENT (Reported) Furosemide (Lasix) 40 MG TABLET 1 TAB PO BID WATER PILL (Reported) Guaifenesin (Mucinex) 600 MG TAB.ER.12H 1 TAB PO DAILY EXPECTORANT (Reported) Hydromorphone HCl 2 MG TABLET 2 MG PO Q4 HRS NEEDED PRN PAIN SCALE 7-10 ( SEVERE) Levothyroxine Sodium 100 MCG TABLET 1 TAB PO DAILY AC THYROID (Reported) Losartan Potassium 50 MG TABLET 1 TAB PO DAILY BP (Reported) Melatonin 5 MG TABLET 5 MG PO AT BEDTIME SLEEP HELP Montelukast Sodium 10 MG TABLET 1 TAB PO DAILY COPD (Reported) Nitroglycerin (Nitro-Dur) 0.6 MG/HOUR PATCH.TD24 1 PATCH TOP DAILY HEART ( Reported) Eckley-3 Fatty Acids/Fish Oil (Fish Oil 1,000 MG Capsule) 340 MG-1,000 MG CAPSULE 2 CAP PO DAILY SUPPLEMENT (Reported) Omeprazole 40 MG CAPSULE.DR 1 CAP PO DAILY GI (Reported) Potassium Chloride 20 MEQ TAB.ER.PRT 1 TAB PO DAILY SUPPLEMENT (Reported) Pravastatin Sodium (Pravachol) 40 MG TABLET 1 TAB PO QPM CHOLESTEROL ( Reported) Rivaroxaban (Xarelto) 10 MG TABLET 20 MG PO 1700 blood thinner please follow with cardilogy as an out patinet to refill this medication Roflumilast (Daliresp) 500 MCG TABLET 1 TAB PO DAILY COPD (Reported) Sertraline HCl (Zoloft) 100 MG TABLET 2 TAB PO DAILY DEPRESSION (Reported) Sucralfate 1 GRAM/10 ML ORAL.SUSP 1 GM PO TID THROAT PAIN Tiotropium Dellrose (Spiriva) 18 MCG CAP.W.DEV 1 CAP INH DAILY copd Reason to Stop at ADM:TRC NEBS ORDERS Vitamin E (Dl,Tocopheryl Acet) (Vitamin E) 400 UNIT CAPSULE 1 TAB PO DAILY SUPPLEMENT (Reported) Current Medications: Current Medications Sig/Lana Start time Last Medication Dose Route Stop Time Status Admin Acetaminophen 650 MG Q6PRN PRN 02/15 2315 AC PO Albuterol Sulfate 3 ML ONCE ONE 02/15 1930 DC 02/15 INH 02/15 Amiodarone HCl 400 MG TID 02/16 0030 AC 02/16 PO 104 Ascorbic Acid 500 MG DAILY 02/16 1000 AC PO Budesonide/ 2 PUF BID 02/16 1000 AC Formoterol Fumarate INH Bupropion HCl 150 MG QAM 02/16 1000 AC PO Calcium/Vitamin D 1 TAB DAILY 02/16 1000 AC PO Cholecalciferol 400 IU DAILY 02/16 1000 AC PO Diltiazem HCl 180 MG DAILY 02/16 1000 AC PO Docusate Sodium 200 MG QPM 02/16 2200 AC PO Ezetimibe 10 MG DAILY 02/16 1000 AC PO Ferrous Sulfate 325 MG DAILY 02/16 1000 AC PO Fish Oil 2,100 MG DAILY 02/16 1000 AC PO Folic Acid 1 MG DAILY 02/16 1000 AC PO Furosemide 40 MG BID 02/16 1000 AC PO Furosemide 0 .STK-MED ONE 02/15 1942 DC IV Furosemide 40 MG ONCE ONE 02/15 1930 DC IV PUSH 02/15 1931 Guaifenesin 600 MG DAILY 02/16 1000 AC PO Hydromorphone HCl 4 MG ONCE ONE 02/165 DC 02/16 PO 02/17 16 0106 Hydromorphone HCl 2 MG Q4P PRN 02/15 2315 AC 02/16 PO 0550 Hydromorphone HCl 0 .STK-MED ONE 02/15 1705 DC PO Hydromorphone HCl 2 MG ONCE ONE 02/15 1645 DC 02/15 PO 02/15 1646 1701 Ipratropium Dellrose 2.5 ML ONCE ONE 02/15 1930 DC 02/15 INH 02/15 193 1952 Levothyroxine Sodium 0.1 MG DAILY AC 02/16 0700 AC 02/16 PO 0550 Lidocaine/Diphenhydr/ 15 ML TID PRN 02/16 0300 AC Alum/Mg/Simeth PO Losartan Potassium 50 MG DAILY 02/16 1000 AC PO Montelukast Sodium 10 MG DAILY 02/16 1000 AC PO Nitroglycerin 0.6 MG DAILY 02/16 1000 AC TOP Omeprazole 40 MG DAILY AC 02/16 0700 AC 02/16 PO 0550 Oxycodone HCl 5 MG Q6 PRN 02/16 0500 AC 02/16 PO 0645 Polyethylene Glycol 17 GM DAILY 02/16 1000 AC PO Polyethylene Glycol 17 GM ONCE ONE 02/15 2145 DC PO 02/15 2146 Potassium Chloride 20 MEQ DAILY 02/16 1000 AC PO Pravastatin Sodium 40 MG 1700 02/16 1700 AC PO Prednisone 10 MG DAILY 02/16 1000 AC PO 02/17 1001 Sertraline HCl 200 MG DAILY 02/16 1000 AC PO Sodium Chloride 1,000 ML BOLUS ONE 02/15 1545 DC 02/15 IV 02/15 1744 1611 Tiotropium Dellrose 1 PUF DAILY 02/16 1000 AC INH Vitamin E 400 IU DAILY 02/16 1000 AC PO Past History Travel History Traveled to [place] past 21 day No Medical History Blood Transfusion Hx: Yes Neurological: meningitis (viral in 2008) EENT: cataracts (on right with IOL), hearing loss Cardiovascular: AFIB, CAD (s/p NM), hypertension, hyperlipidemia, NM BLOCKED ARTERY atrial fibrillation PHARMACEUTICAL CONVERSION WITH TIKOSYN Respiratory: COPD, pneumonia, 2L N/C O2 PRN Gastrointestinal: GERD, irritable bowel syndrome, ULCERATIVE COLITIS Hepatic: NONE Renal: NONE Musculoskeletal: fibromyalgia, osteoarthritis Psychiatric: anxiety, depression, PTSD fibromyalgia Endocrine: hypothyroidism Blood Disorders: anemia Cancer(s): SKIN CA (skin cancer) [employer]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 Other Medical Hx: Irritable bowel syndrome viral meningitis [id number] hypothyroidism right cataract extraction with IOL implant depression arthritis HTN (HYPERTENSION) (401.9 | I10) CAD s/p NM COPD tonsillectomy GERD discoid lupus Pneumonia miscarriage in 1990 appendectomy ulcerative colitis eczema surgical repair of hiatal hernia skin cancer Atrial Fibrillation Surgical History Surgical History: appendectomy, surgical repair of hiatal hernia tonsillectomy Family History Relations & Conditions If Any: MOTHER FH: COPD (chronic obstructive pulmonary disease) FH: heart disease FATHER Alzheimer's disease Psychosocial History Who Do You Live With? child Services at Home: [employer] Primary Language: Syrian Smoking Status: Unknown If Ever Smoked ETOH Use: denies use Illicit Drug Use: denies illicit drug use Functional Ability ADLs Independent: dressing, eating, toileting, bathing. Ambulation: independent IADLs Independent: shopping, housework, finances, food prep, telephone, transportation , medication admin. Review of Systems Review of Systems Constitutional: Reports: malaise, weakness. Denies: unexplained weight loss. EENTM: Denies: no symptoms. Cardiovascular: Reports: orthopena. Denies: chest pain. Respiratory: Reports: cough, short of breath, sputum production. Denies: hemoptysis. GI: Reports: see HPI. Genitourinary: Denies: no symptoms. Musculoskeletal: Denies: no symptoms. Skin: Denies: no symptoms. Neurological/Psychological: Denies: no symptoms. Hematologic/Endocrine: Denies: no symptoms. Immunologic/Allergic: Denies: no symptoms. All Other Systems: Reviewed and Negative Exam & Diagnostic Data Vital Signs and I&O Vital Signs Date Time Temp Pulse Resp B/P B/P Pulse O2 O2 Flow FiO2 Mean Ox Delivery Rate 02/16 0527 98 Nasal 2.0L Cannula 02/16 0105 95 138/64 02/16 0000 99 Nasal 2.0L Cannula 02/15 2226 97.8 108 20 124/58 100 Nasal 2.0L Cannula 02/15 2100 98.0 98 20 146/65 98 Nasal 2.0L Cannula 02/15 1813 103 20 109/57 02/15 1812 103 20 108/59 02/15 1812 103 20 111/64 02/15 1622 96.4 93 20 116/57 98 Nasal 2.0L Cannula 02/15 1432 99 Room Air 02/15 1402 98.0 105 15 137/77 100 Room Air Intake & Output 02/16 0400 Intake Total Output Total 500 Balance -500 Output, Urine 500 Patient 135 lb 135 lb Weight Weight Reported by Patient Measurement Method Physical Exam General Appearance: well developed/nourished, alert, awake, anxious, mild distress Head: atraumatic, normal appearance Eyes: Bilateral: normal appearance. Ears, Nose, Throat: normal pharynx, normal ENT inspection Neck: normal inspection, supple, full range of motion Respiratory: chest non-tender, decreased breath sounds Cardiovascular: irregularly irregular Gastrointestinal: normal bowel sounds, soft, non-tender, no organomegaly Rectal: deferred, guaiac positive per ED Back: normal inspection, normal range of motion Extremities: normal inspection, normal capillary refill, normal range of motion Neurologic/Psych: no motor/sensory deficits, awake, alert, oriented x 3 Skin: intact, normal color, warm/dry Results Pertinent Lab Results: Laboratory Tests 02/18 0720 Chemistry Sodium (137 - 145 mmol/L) 137 Potassium (3.5 - 5.1 mmol/L) 4.3 Chloride (98 - 107 mmol/L) 95 L Carbon Dioxide (22 - 30 mmol/L) 32 H Anion Gap (5 - 16) 9 BUN (7 - 17 mg/dL) 19 H Creatinine (0.5 - 1.0 mg/dL) 0.8 Estimated GFR (>60 ml/min) > 60 BUN/Creatinine Ratio (7 - 25 %) 23.8 Hematology CBC w Diff MAN DIFF ORDERED WBC (4.8 - 10.8 /CUMM) 11.6 H RBC (4.20 - 5.40 /CUMM) 3.21 L Hgb (12.0 - 16.0 G/DL) 9.3 L Hct (37 - 47 %) 29.2 L MCV (81.0 - 99.0 FL) 91.1 MCH (27.0 - 31.0 PG) 29.0 RDW (11.5 - 14.5 %) 19.8 H Plt Count (130 - 400 /CUMM) 405 H MPV (7.4 - 10.4 FL) 6.1 L Gran % (42.2 - 75.2 %) 80.7 H Lymphocytes % (20.5 - 51.1 %) 8.8 L Monocytes % (1.7 - 9.3 %) 6.9 Eosinophils % (0 - 5 %) 3.5 Basophils % (0.0 - 2.0 %) 0.1 Absolute Granulocytes (1.4 - 6.5 /CUMM) 9.3 H Absolute Lymphocytes (1.2 - 3.4 /CUMM) 1.0 L Absolute Monocytes (0.10 - 0.60 /CUMM) 0.8 H Absolute Eosinophils (0.0 - 0.7 /CUMM) 0.4 Absolute Basophils (0.0 - 0.2 /CUMM) 0 Platelet Estimate (ADEQUATE) VERIFIED BY SMEAR Polychromasia 1+ Poikilocytosis 1+ Anisocytosis 1+ Ovalocytes 1+ Stomatocytes 1+ PUBS MCHC (33.0 - 37.0 G/DL) 31.8 L Assessment/Plan Assessment/Recommendations: Assessment: Ms. Escobar is a 67 year old female with COPD and a history of paroxysmal atrial fibrillation for which she was recently restarted on anticoagulation on a hospitalization for pneumonia who also has a history of iron deficiency anemia secondary to AVMs which were recently cauterized though balloon enteroscopy who presents with worsening anemia which is likely secondary to occult blood loss was from small bowel AVMs that has been exacerbated by Xarelto. While she did just have a double balloon enteroscopy from above, where 5 AVMs were cauterized and from below where no AMVs were seen it is quite likely that some AVMs were missed considering there were 8 AVMs seen on her PillCam back in 2010. As she is currently without signs of overt GI bleeding, and is hemodynamically stable, and has had a recent extensive endoscopic workup of her entire bowel from above and below within the past 3 months I do not feel that any of that needs to be repeated at this time. If long-term anticoagulation is required and she is not able to maintain her hemoglobin with supplemental iron at some point it may be reasonable to consider repeating the though balloon enteroscopy to look for any other AVMs to ablate considering her tenuous respiratory status would recommend conservative treatment for now with supplemental iron and intermittent transfusions as necessary and would also continue to follow up with cardiology to get her out of atrial fibrillation if possible. Recommendations: 1. Advance diet as tolerated. 2. Maintain on an oral PPI for GI prophylaxis. 3. Notify GI for signs of overt GI bleeding. 4. Continue oral iron supplementation. 5. Continue to use MiraLAX and Colace as needed for constipation from the iron. 6. Follow daily CBCs and transfuse as needed to keep her hemoglobin greater than 8 or as per cardiology recommendations. 7. Would recommend holding the anticoagulation at least for the next 48-72 hours, but if she remains without signs of overt GI bleeding would defer to cardiology if they would like to restart it. 8. Follow-up cardiology recommendations for atrial fibrillation and and saturation should be given to either reattempt to cardiovert her or perhaps even consider ablation if her respiratory status can tolerate it. I will continue to follow this patient and make further recommendations based on her clinical course and results of repeat blood work. Problem List: 1. Anemia 2. GI bleed 3. Symptomatic anemia 4. Atrial fibrillation 5. Pneumonia 6. COPD, frequent exacerbations 7. Respiratory failure Copies To: PEDRO ETIENNE,DEDE Romo; MADAI ETIENNE,NATALIA Bonilla; LEANDRO ETIENNE,[facility]ata KC MD, NATALIA Castro; MARA ETIENNE PhD,DEDE Dinh; SANAM ETIENNE,DEDE Castro Consult Acknowledgment - Thank you for your consult request."
[2017-02-16 07:21] VITALS: BP 142/78
[2017-02-16 08:37] LABS: ABSOLUTE BASOPHIL COUNT 0 /CUMM (0.0-0.2); ABSOLUTE EOSINOPHIL COUNT 0.2 /CUMM (0.0-0.7); ABSOLUTE GRANULOCYTE CT 11.5 /CUMM (1.4-6.5); ABSOLUTE LYMPH COUNT 1.5 /CUMM (1.2-3.4); ABSOLUTE MONOCYTE COUNT 0.8 /CUMM (0.10-0.60); BASOPHIL % 0.1 % (0.0-2.0); EOSINOPHIL % 1.7 % (0-5); GRANULOCYTE % 81.8 % (42.2-75.2); MEAN CORPUSCULAR HGB 28.9 PG (27.0-31.0); MEAN CORPUSCULAR HGB CONC 31.8 G/DL (33.0-37.0); MEAN PLATELET VOLUME 5.9 FL (7.4-10.4); PLATELET COUNT 406 /CUMM (130-400); RBC DISTRIBUTION WIDTH 19.9 % (11.5-14.5); WHITE BLOOD CELL COUNT 14.1 /CUMM (4.8-10.8)
--- NOTE | 2017-02-16 08:44 | PN- Housestaff ---
ABIGAIL TOBIAS 02/16/17 0844: Subjective Follow-up For: # Symptomatic anemia # Recently treated pneumonia # Thrush # Chronic pain Complaints: pain scale (0-10) Subjective: Patient was seen and examined this morning. She is alert, awake and oriented to time place and person. No acute events noticed overnight. Patient does report short of breath this morning She reports generalized weakness, tired and fatigue. She is status post 2 units of PRBC transfusion. Hemoglobin improved-8.3 Denies any chest pain, cough, racing of heart. Denies any nausea, vomiting, abdominal pain Stool guaiac was positive Vitals stable. Afebrile, heart rate 114, respiratory rate 20, blood pressure 142/60, saturating at 98 on 2 L Review of Systems Constitutional: Reports: weakness. Denies: chills, diaphoresis, fever, malaise. Objective Last 24 Hrs of Vital Signs/I&O Vital Signs Date Time Temp Pulse Resp B/P B/P Pulse O2 O2 Flow FiO2 Mean Ox Delivery Rate 02/16 1628 104 134/58 02/16 1459 97.8 114 20 142/60 98 Nasal 2.0L Cannula 02/16 1407 Nasal 2.0L Cannula 02/16 1028 111 138/64 02/16 1026 111 138/64 02/16 0800 95 Nasal 2.0L Cannula 02/16 0721 97.6 92 18 142/78 100 Nasal 2.0L Cannula 02/16 0527 98 Nasal 2.0L Cannula 02/16 0105 95 138/64 02/16 0000 99 Nasal 2.0L Cannula 02/15 2226 97.8 108 20 124/58 100 Nasal 2.0L Cannula 02/15 2100 98.0 98 20 146/65 98 Nasal 2.0L Cannula 02/15 1813 103 20 109/57 02/15 1812 103 20 108/59 02/15 1812 103 20 111/64 Intake & Output 02/16 1600 02/16 0800 02/16 0000 Intake Total 960 800 Output Total 500 500 Balance 460 800 -500 Intake, Blood 350 Product Intake, Oral 960 450 Output, Urine 500 500 Patient 61.235 kg Weight Physical Exam General Appearance: Alert, Oriented X3, Cooperative, No Acute Distress Skin: No Rashes, No Breakdown HEENT: Atraumatic, PERRLA, EOMI Neck: Supple, No JVD Lymphatic: Cervical nl Cardiovascular: Normal S1, Normal S2 Lungs: Normal Air Movement Abdomen: Normal Bowel Sounds, Soft, No Tenderness Extremities: No Clubbing, No Cyanosis, No Edema Vascular: Pulses Symmetrical Current Medications: Current Medications Sig/Lana Start time Last Medication Dose Route Stop Time Status Admin Acetaminophen 650 MG Q6PRN PRN 02/15 2315 AC PO Albuterol Sulfate 3 ML EVERY 4 HRS/AWAKE 02/16 1600 AC 02/16 INH 1317 Albuterol Sulfate 3 ML ONCE ONE 02/15 1930 DC 02/15 INH 02/15 1931 195 Alprazolam 0.5 MG DAILY 02/16 1100 AC 02/16 PO 02/23 1059 1054 Amiodarone HCl 400 MG TID 02/16 0030 AC 02/16 PO 1628 Arformoterol Tartrate 15 MCG BID 02/16 2200 AC INH Ascorbic Acid 500 MG DAILY 02/16 1000 AC 02/16 PO 1027 Budesonide/ 2 PUF BID 02/16 1000 AC 02/16 Formoterol Fumarate INH 1035 Bupropion HCl 150 MG QAM 02/16 1000 AC 02/16 PO 1025 Calcium/Vitamin D 1 TAB DAILY 02/16 1000 AC 02/16 PO 1025 Cholecalciferol 400 IU DAILY 02/16 1000 AC 02/16 PO 1025 Diltiazem HCl 180 MG DAILY 02/16 1000 AC 02/16 PO 1025 Docusate Sodium 200 MG QPM 02/16 2200 AC PO Ezetimibe 10 MG DAILY 02/16 1000 AC 02/16 PO 1025 Ferrous Sulfate 325 MG DAILY 02/16 1000 AC 02/16 PO 1028 Fish Oil 2,100 MG DAILY 02/16 1000 AC 02/16 PO 1028 Folic Acid 1 MG DAILY 02/16 1000 AC 02/16 PO 1027 Furosemide 40 MG BID 02/16 1000 AC 02/16 PO 1027 Furosemide 0 .STK-MED ONE 02/15 1942 DC IV Furosemide 40 MG ONCE ONE 02/15 1930 DC IV PUSH 02/15 1931 Guaifenesin 600 MG DAILY 02/16 1000 AC 02/16 PO 1027 Hydromorphone HCl 4 MG Q4P PRN 02/16 1100 AC 02/16 PO 1054 Hydromorphone HCl 4 MG ONCE ONE 02/16 0015 DC 02/16 PO 02/16 0016 0106 Hydromorphone HCl 2 MG Q4P PRN 02/15 2315 DC 02/16 PO 0550 Hydromorphone HCl 0 .STK-MED ONE 02/15 1705 DC PO Hydromorphone HCl 2 MG ONCE ONE 02/15 1645 DC 02/15 PO 02/15 1646 1701 Ipratropium Royal 2.5 ML ONCE ONE 02/15 1930 DC 02/15 INH 02/15 193 195 Levothyroxine Sodium 0.1 MG DAILY AC 02/16 0700 AC 02/16 PO 0550 Lidocaine/Diphenhydr/ 15 ML TID PRN 02/16 0300 AC 02/16 Alum/Mg/Simeth PO 1040 Losartan Potassium 50 MG DAILY 02/16 1000 AC 02/16 PO 1028 Melatonin 5 MG AT BEDTIME 02/16 2200 AC PO Montelukast Sodium 10 MG DAILY 02/16 1000 AC 02/16 PO 1029 Nitroglycerin 0.6 MG DAILY 02/16 1000 AC 02/16 TOP 1030 Nystatin 5 ML 4 TIMES/DAY 02/16 1100 AC 02/16 PO 1449 Omeprazole 40 MG DAILY AC 02/16 0700 AC 02/16 PO 0550 Oxycodone HCl 5 MG Q6 PRN 02/16 0500 AC 02/16 PO 0645 Polyethylene Glycol 17 GM DAILY 02/16 1000 AC 02/16 PO 1036 Polyethylene Glycol 17 GM ONCE ONE 02/15 2145 DC PO 02/15 2146 Potassium Chloride 20 MEQ DAILY 02/16 1000 AC 02/16 PO 1028 Pravastatin Sodium 40 MG 1700 02/16 1700 AC 02/16 PO 1628 Prednisone 10 MG DAILY 02/16 1000 AC 02/16 PO 02/17 1001 1027 Sertraline HCl 200 MG DAILY 02/16 1000 AC 02/16 PO 1033 Sodium Chloride 1,000 ML BOLUS ONE 02/15 1545 DC 02/15 IV 02/15 1744 1611 Tiotropium Royal 1 PUF DAILY 02/16 1000 AC 02/16 INH 1029 Vitamin E 400 IU DAILY 02/16 1000 AC 02/16 PO 1025 Last 24 Hrs of Lab/Wan Results Last 24 Hrs of Labs/Mics: Laboratory Tests 02/16/17 0700: Iron < 10 L, TIBC 347, Ferritin 26.9, Vitamin B12 911, Folate > 20.0 H, TSH 4.990 H, Free T4 1.64, CBC w Diff NO MAN DIFF REQ, RBC 3.03 L, MCV 91.0, MCH 28.9, RDW 19.9 H, MPV 5.9 L, Gran % 81.8 H, Lymphocytes % 10.6 L, Monocytes % 5.8, Eosinophils % 1.7, Basophils % 0.1, Absolute Granulocytes 11.5 H, Absolute Lymphocytes 1.5, Absolute Monocytes 0.8 H, Absolute Eosinophils 0.2, Absolute Basophils 0, PUBS MCHC 31.8 L Assessment/Plan Assessment: 67-year-old female with PMH of COPD, atrial fibrillation on xarelto, HTN, HLD, anxiety, depression, hypothyroidism, fibromyalgia, iron deficiency anemia, was brought in from pulmonary rehab for PRBC transfusion for symptomatic anemia. Her h/h on presentation was 6.4/20.3. On February 13, hg was 7, and on February 05, it was 8.5. She feels exahusted and run down. Vitals at the time of admission-98, 105, 15, 137/77, saturating at 100% on room air Pertinent labs on admission WBC 13.8, hemoglobin 6.4 and hematocrit 20.3, platelets 476 BUN 23 CXR The lungs are well expanded. Patchy left basilar opacity. No edema or effusion. No pneumothorax. The cardiomediastinal silhouette is within normal limits of size, with a calcified aorta. IMPRESSION: Increased patchy left basilar opacity may represent atelectasis or pneumonia. PROBLEM LIST 1. Symptomatic anemia 2. Recently treated pneumonia 3. Atrial fibrillation 4. COPD 5. Anxiety 6. Depression 7. Hypertension 8. Hypothyroidism 9. GERD 10. Hyperlipidemia 11. Constipation Symptomatic anemia Patient has past medical history significant for iron deficiency anemia, was brought in from pulmonary rehab for PRBC transfusion for symptomatic anemia. Her h/h on presentation was 6.4/20.3. On February 13, hg was 7, and on February 05, it was 8.5. Patient has had anemia and has been following up with Dr. Woods and Dr. Steiner. She underwent double baloon enteroscopy on January 21, which revealed 5 polyps in the stomach, and unimpressive colonoscopy findings. She is supposed to follow up with Dr. Steiner in March. She has had guaiac positive stool in the past and has hemorrhoids. She denies bright red blood recently, but guaiac done in the ED was positive. She is on iron supplement, hence her stool has always been black in color. Patient reports history of transfusion in the past, which was complicated of heart failure requiring intubation. Hence she needs to be closely monitored while she is receiving blood transfusions. * Admitted to general medicine floor for further management of symptomatic anemia * Monitor vitals closely every shift * Maintain oxygen saturation ABOVE 90% * Provide supplemental oxygen * 2 large IV bore lines * Type and crossmatch * She is status post 2 units PRBC transfusion * Hemoglobin improved from 6.4-8.3 * Goal hemoglobin greater than 8 * Will repeat CBCs in the morning * We will continue to monitor for worsening shortness of breath, chest pain, dizziness or lightheadedness * Fall precautions * Gastro was consulted * Onco was notified * Continue iron sulfate * Continue folate Atrial fibrillation Of note, patient was on eliquis in the past for atrial fibrillation, she reverted back to NSR for about 5 months, hence eliquis discontinued. Post endoscopy/colonoscopy on january 21, she went back into atrial fibrillation and was complaining of cough with yellow/grayish sputum. She was admitted to the hospital with pneumonia and was started on xarelto. She was discharged to pulmonary rehab on prednisone (almost at the end of her taper) and ciprofloxacin for 2 weeks. She continues to have cough productive of yellow sputum. * Will continue home dose of amiodarone * Will continue home dose of Cardizem * Will hold xaralto for now * Cardiology was consulted Recently treated pneumonia CXR reveals increased patchy left basilar opacity, which could be atelectasis vs pna. * We will watch her off antibiotics for now. * Completed 2 week course of cipro * Monitor off abx * Continue prednisone taper Bilateral leg swelling She also noted bilateral leg swelling over the past week, that has significantly improved on the day of admission. * Probnp 1570 without obvious chf symptoms. * Will continue home dose of Lasix 40 mg twice a day * Continue K-Dur tablets COPD * Total respiratory care * Continue home nebulizers and inhalers * Continue albuterol, Symbicort * Continue Spiriva * Continue brivana * Continue montelukast hypertension Continue home dose of losartan Hypothyroidism Continue home dose of Synthyroid GERD Continue omeprazole Anxiety Continue Xanax 0.5 mg daily Depression Continue sertraline and bupropion Constipation Continue bowel regimen when necessary Hyperlipidemia Continue Lipitor Chronic shoulder pain She has chronic shoulder pain, for which she takes dilaudid. At baseline, she is constipated. * Dilaudid 2 mg q4p severe pain, * roxicodone 5mg q6p moderate pain, * tylenol 650 q6p mild Thrush * magic mouth wash Diet: Heart healthy DVT ppx: mech, no pharm due to symptomatic anemia FULL CODE Problem List: 1. Symptomatic anemia Pain Ratin Pain Location: N/A Pain Goal: Remain pain free Pain Plan: TYLINOL Tomorrow's Labs & Rationales: CBC TIFF LEE 02/16/17 1128: Attending MD Review Statement Attending Statement Attending MD Statement: examined this patient, discuss w/resident/PA/OPERATIONS ASST, agreed w/resident/PA/OPERATIONS ASST, discussed with family, reviewed EMR data (avail), discussed with nursing, discussed with case mgmt, reviewed images, amended to note Attending Assessment/Plan: "67 yo F with h/o HTN, CAD s/p IWMI, severe COPD on 2L O2 with multiple exacerbations, chronic diastolic heart failure, depression, anxiety, iron deficiency anemia, Afib s/p cardioversion reverted back to Afib currently on xarelto, was recently admitted to [facility] (01/25 02/05) for pseudomonas pneumonia and COPD exacerbation, and discharged to [facility]. She has been fatigued, dyspneic and weak for the past few days. She was scheduled to be discharged home on February 16. She had blood work done which showed low H and H and hence, she was sent to ER for blood transfusion. She denies chest pain, palpitations, lightheadedness. She follows Dr. Woods for anemia and is on iron supplements. She has guaiac positive stools. She was referred to [facility] by Dr. Pandya for double baloon enteroscopy which she had earlier this month. EGD showed 5 polpys in the stomach that were cauterized and colonoscopy was unremarkable. She is scheduled to follow up with Dr. Pandya in March. She reports dark stools 2/2 iron use, but denies BRBPR or hematemesis. She denies excessive NSAID use." ASSESSMENT 1. Acute blood loss anemia 2. GI bleed Acute 2/2 AVMs. 3. Afib on xarelto on amidoarone/diltiazem 4. Hypertension 5. CAD s/p IWMI 6. Severe COPD on home oxygen 2l, poor lung reserves 7. Chronic distolic heart failure compensated. PLAN Admit to inpatient medical services Patient received 2unit of PBCS during this hospital stay. Continue monitor CBC, F/u GI, consult cardiology for a/c. \\ c/w COPD stable. resuem home meds gi/dvt prophalxis cont current care
[2017-02-16 10:53] LABS: RED BLOOD CELL CT 3.03 /CUMM (4.20-5.40)
[2017-02-16 10:54] LABS: HEMATOCRIT 27.6 % (37-47)
[2017-02-16 14:59] VITALS: BP 142/60
[2017-02-17 07:27] VITALS: BP 134/64
[2017-02-17 07:58] LABS: ABSOLUTE BASOPHIL COUNT 0 /CUMM (0.0-0.2); ABSOLUTE EOSINOPHIL COUNT 0.3 /CUMM (0.0-0.7); ABSOLUTE LYMPH COUNT 1.1 /CUMM (1.2-3.4); ABSOLUTE MONOCYTE COUNT 0.8 /CUMM (0.10-0.60); BASOPHIL % 0 % (0.0-2.0); EOSINOPHIL % 2.7 % (0-5); GRANULOCYTE % 78.4 % (42.2-75.2); HEMATOCRIT 26.6 % (37-47); MEAN CORPUSCULAR HGB 29.1 PG (27.0-31.0); MEAN CORPUSCULAR HGB CONC 32.1 G/DL (33.0-37.0); MEAN CORPUSCULAR VOLUME 90.7 FL (81.0-99.0); MEAN PLATELET VOLUME 6.1 FL (7.4-10.4); PLATELET COUNT 390 /CUMM (130-400); RBC DISTRIBUTION WIDTH 20.5 % (11.5-14.5); RED BLOOD CELL CT 2.93 /CUMM (4.20-5.40); WHITE BLOOD CELL COUNT 10.2 /CUMM (4.8-10.8)
--- NOTE | 2017-02-17 08:22 | PN- Housestaff ---
ABIGAIL TOBIAS 02/17/17 0822: Subjective Follow-up For: # Symptomatic anemia # Recently treated pneumonia # Thrush # Chronic pain Complaints: pain scale (0-10) Subjective: Patient was seen and examined this morning. She is alert, awake and oriented to time place and person. No acute events noticed overnight. Patient does report short of breath this morning She reports generalized weakness, tired and fatigue. She is status post 2 units of PRBC transfusion. Hemoglobin improved-8.5 Denies any chest pain, cough, racing of heart. Denies any nausea, vomiting, abdominal pain Stool guaiac was positive Vitals stable. Afebrile, heart rate 114, respiratory rate 20, blood pressure 142/60, saturating at 98 on 2 L Review of Systems Constitutional: Denies: chills, diaphoresis, fever, malaise. Objective Last 24 Hrs of Vital Signs/I&O Vital Signs Date Time Temp Pulse Resp B/P B/P Pulse O2 O2 Flow FiO2 Mean Ox Delivery Rate 02/17 0937 92 112/58 02/17 0910 99 Nasal 2.0L Cannula 02/17 0800 98 Nasal 2.0L Cannula 02/17 0727 98.3 87 20 134/64 99 Nasal 2.0L Cannula 02/17 0000 98 Nasal 2.0L Cannula 02/16 2212 78 138/64 02/16 1700 98 Nasal 2.0L Cannula 02/16 1628 104 134/58 02/16 1459 97.8 114 20 142/60 98 Nasal 2.0L Cannula 02/16 1407 Nasal 2.0L Cannula Intake & Output 02/17 1600 02/17 0800 02/17 0000 Intake Total 240 480 Output Total 600 Balance -360 480 Intake, Oral 240 480 Output, Urine 600 Patient 61.235 kg Weight Weight Reported by Patient Measurement Method Physical Exam General Appearance: Alert, Oriented X3, Cooperative, No Acute Distress Skin: No Rashes, No Breakdown HEENT: Atraumatic, PERRLA, EOMI, Mucous Membr. moist/pink Neck: Supple, No JVD, No thryomegaly Lymphatic: Cervical nl Cardiovascular: Normal S1, Normal S2 Lungs: dec breath sounds and wheezes Abdomen: Normal Bowel Sounds, Soft, No Tenderness Extremities: No Clubbing, No Cyanosis, No Edema Vascular: Pulses Symmetrical Current Medications: Current Medications Sig/Lana Start time Last Medication Dose Route Stop Time Status Admin Acetaminophen 650 MG Q6PRN PRN 02/15 2315 AC PO Albuterol Sulfate 3 ML EVERY 4 HRS/AWAKE 02/16 1600 AC 02/17 INH 0855 Alprazolam 0.5 MG BID 02/17 0016 AC 02/17 PO 02/24 0015 0941 Alprazolam 0.5 MG DAILY 02/16 1100 DC 02/16 PO 02/23 1059 1054 Amiodarone HCl 400 MG TID 02/16 0030 AC 02/17 PO 0937 Arformoterol Tartrate 15 MCG BID 02/16 2200 AC INH Ascorbic Acid 500 MG DAILY 02/16 1000 AC 02/17 PO 0939 Budesonide/ 2 PUF BID 02/16 1000 AC 02/17 Formoterol Fumarate INH 0942 Bupropion HCl 150 MG QAM 02/16 1000 AC 02/17 PO 0939 Calcium/Vitamin D 1 TAB DAILY 02/16 1000 AC 02/17 PO 0937 Cholecalciferol 400 IU DAILY 02/16 1000 AC 02/17 PO 0939 Diltiazem HCl 180 MG DAILY 02/16 1000 AC 02/17 PO 0938 Docusate Sodium 200 MG QPM 02/16 2200 AC 02/16 PO 2211 Ezetimibe 10 MG DAILY 02/16 1000 AC 02/17 PO 0939 Ferrous Sulfate 325 MG DAILY 02/16 1000 AC 02/17 PO 0938 Fish Oil 2,100 MG DAILY 02/16 1000 AC 02/17 PO 0941 Folic Acid 1 MG DAILY 02/16 1000 AC 02/17 PO 0938 Furosemide 40 MG BID 02/16 1000 AC 02/17 PO 0938 Guaifenesin 600 MG DAILY 02/16 1000 AC 02/17 PO 0939 Hydromorphone HCl 4 MG Q4P PRN 02/16 1100 AC 02/16 PO 1935 Levothyroxine Sodium 0.1 MG DAILY AC 02/16 0700 AC 02/17 PO 0604 Lidocaine/Diphenhydr/ 15 ML TID PRN 02/16 0300 AC 02/16 Alum/Mg/Simeth PO 1040 Losartan Potassium 50 MG 02/170 AC PO Losartan Potassium 50 MG DAILY 02/16 1000 DC 02/16 PO 1028 Melatonin 5 MG AT BEDTIME 02/16 2200 AC 02/16 PO 2212 Montelukast Sodium 10 MG 02/17 2200 AC PO Montelukast Sodium 10 MG DAILY 02/16 1000 DC 02/17 PO 1032 Nitroglycerin 0.6 MG DAILY 02/16 1000 AC 02/17 TOP 0936 Nystatin 5 ML 4 TIMES/DAY 02/16 1100 AC 02/17 PO 0942 Omeprazole 40 MG DAILY AC 02/16 0700 AC 02/17 PO 0604 Oxycodone HCl 5 MG Q6 PRN 02/16 0500 AC 02/17 PO 0953 Polyethylene Glycol 17 GM DAILY 02/16 1000 AC 02/17 PO 0954 Potassium Chloride 20 MEQ DAILY 02/16 1000 AC 02/17 PO 0938 Pravastatin Sodium 40 MG 1700 02/16 1700 AC 02/16 PO 1628 Prednisone 10 MG DAILY 02/16 1000 DC 02/17 PO 02/17 1001 0939 Rivaroxaban 20 MG 17002/17 1700 UNVr PO Sertraline HCl 200 MG DAILY 02/16 1000 AC 02/17 PO 0940 Tiotropium [place] 1 PUF DAILY 02/16 1000 AC 02/17 INH 0942 Vitamin E 400 IU DAILY 02/16 1000 AC 02/17 PO 0939 Last 24 Hrs of Lab/Wan Results Last 24 Hrs of Labs/Mics: Laboratory Tests 02/17/17 0610: Anion Gap 7, Estimated GFR > 60, BUN/Creatinine Ratio 21.3, CBC w Diff NO MAN DIFF REQ, RBC 2.93 L, MCV 90.7, MCH 29.1, RDW 20.5 H, MPV 6.1 L, Gran % 78.4 H, Lymphocytes % 10.8 L, Monocytes % 8.1, Eosinophils % 2.7, Basophils % 0 L, Absolute Granulocytes 8.0 H, Absolute Lymphocytes 1.1 L, Absolute Monocytes 0.8 H, Absolute Eosinophils 0.3, Absolute Basophils 0, PUBS MCHC 32.1 L Assessment/Plan Assessment: 67-year-old female with PMH of COPD, atrial fibrillation on xarelto, HTN, HLD, anxiety, depression, hypothyroidism, fibromyalgia, iron deficiency anemia, was brought in from pulmonary rehab for PRBC transfusion for symptomatic anemia. Her h/h on presentation was 6.4/20.3. On February 13, hg was 7, and on February 05, it was 8.5. She feels exahusted and run down. Vitals at the time of admission-98, 105, 15, 137/77, saturating at 100% on room air Pertinent labs on admission WBC 13.8, hemoglobin 6.4 and hematocrit 20.3, platelets 476 BUN 23 CXR The lungs are well expanded. Patchy left basilar opacity. No edema or effusion. No pneumothorax. The cardiomediastinal silhouette is within normal limits of size, with a calcified aorta. IMPRESSION: Increased patchy left basilar opacity may represent atelectasis or pneumonia. PROBLEM LIST 1. Symptomatic anemia 2. Recently treated pneumonia 3. Atrial fibrillation 4. COPD 5. Anxiety 6. Depression 7. Hypertension 8. Hypothyroidism 9. GERD 10. Hyperlipidemia 11. Constipation Symptomatic anemia Patient has past medical history significant for iron deficiency anemia, was brought in from pulmonary rehab for PRBC transfusion for symptomatic anemia. Her h/h on presentation was 6.4/20.3. On February 13, hg was 7, and on February 05, it was 8.5. Patient has had anemia and has been following up with Dr. Woods and Dr. Steiner. she has iron deficiency anemia secondary to small bowel AVMs for which she recently underwent a double balloon enterosocopy with cautery of 5 AVMs and unimpressive colonoscopy findings. She is supposed to follow up with Dr. Steiner in March. She has had guaiac positive stool in the past and has hemorrhoids. She denies bright red blood recently, but guaiac done in the ED was positive. She is on iron supplement, hence her stool has always been black in color. Patient reports history of transfusion in the past, which was complicated of heart failure requiring intubation. Hence she needs to be closely monitored while she is receiving blood transfusions. * Admitted to general medicine floor for further management of symptomatic anemia * Monitor vitals closely every shift * Maintain oxygen saturation ABOVE 90% * Provide supplemental oxygen * 2 large IV bore lines * Type and crossmatch * She is status post 2 units PRBC transfusion * Hemoglobin improved from 6.4-8.5 * Goal hemoglobin greater than 8 * Will repeat CBCs in the morning * We will continue to monitor for worsening shortness of breath, chest pain, dizziness or lightheadedness * Fall precautions * Gastro was consulted * Onco was notified * Continue iron sulfate * Continue folate Atrial fibrillation Of note, patient was on eliquis in the past for atrial fibrillation, she reverted back to NSR for about 5 months, hence eliquis discontinued. Post endoscopy/colonoscopy on january 21, she went back into atrial fibrillation and was complaining of cough with yellow/grayish sputum. She was admitted to the hospital with pneumonia and was started on xarelto. She was discharged to pulmonary rehab on prednisone (almost at the end of her taper) and ciprofloxacin for 2 weeks. She continues to have cough productive of yellow sputum. * Will continue home dose of amiodarone * Will continue home dose of Cardizem * Cardiology was consulted * We will dose her xaralto today and check CBCs tomorrow morning and will make changes accordingly as per home health care provider. Recently treated pneumonia CXR reveals increased patchy left basilar opacity, which could be atelectasis vs pna. * We will watch her off antibiotics for now. * Completed 2 week course of cipro * Monitor off abx * Continue prednisone taper Bilateral leg swelling She also noted bilateral leg swelling over the past week, that has significantly improved on the day of admission. * Probnp 1570 without obvious chf symptoms. * Will continue home dose of Lasix 40 mg twice a day * Continue K-Dur tablets COPD * Total respiratory care * Continue home nebulizers and inhalers * Continue albuterol, Symbicort * Continue Spiriva * Continue brivana * Continue montelukast hypertension Continue home dose of losartan Hypothyroidism Continue home dose of Synthyroid GERD Continue omeprazole Anxiety Continue Xanax 0.5 mg daily Depression Continue sertraline and bupropion Constipation Continue bowel regimen when necessary Hyperlipidemia Continue Lipitor Chronic shoulder pain She has chronic shoulder pain, for which she takes dilaudid. At baseline, she is constipated. * Dilaudid 2 mg q4p severe pain, * roxicodone 5mg q6p moderate pain, * tylenol 650 q6p mild Thrush * magic mouth wash Diet: Heart healthy DVT ppx: mech, no pharm due to symptomatic anemia FULL CODE Problem List: 1. Symptomatic anemia 2. Atrial fibrillation Pain Ratin Pain Location: n/a Pain Goal: Remain pain free Pain Plan: tylinol Tomorrow's Labs & Rationales: cbc JESUSTIFF 02/17/17 0955: Attending MD Review Statement Attending Statement Attending MD Statement: examined this patient, discuss w/resident/PA/TOLL LINE REPAIRER, agreed w/resident/PA/TOLL LINE REPAIRER, discussed with family, reviewed EMR data (avail), discussed with nursing, discussed with case mgmt, reviewed images, amended to note Attending Assessment/Plan: ASSESSMENT 1. Acute blood loss anemia 2. GI bleed Acute 2/2 AVMs. 3. Afib on xarelto on amidoarone/diltiazem 4. Hypertension 5. CAD s/p IWMI 6. Severe COPD on home oxygen 2l, poor lung reserves 7. Chronic distolic heart failure compensated. 8. Hyponatremia 2/2 IVVD improving. PLAN Admit to inpatient medical services Patient received 2unit of PBCS during this hospital stay. Continue monitor CBC, F/u GI, consulted cardiology for a/c, recommend give a dose of xarelto and check cbc tomorrow, patient in agreement to start a/c. c/w COPD stable. resume home meds gi/dvt prophalxis. cont current care d/c planning, f/u o/p PCP , cardio and GI.
--- NOTE | 2017-02-17 11:21 | Event Note ---
Event Note Event Note: * Dr. Ijeoma dumont international trade specialist, consulted Dr. Cherry about holding xaralto because of symptomatic anemia * Dr. Cherry agreed with the plan
--- NOTE | 2017-02-17 11:34 | Event Note ---
Event Note Event Note: Dr. Cherry spoke with Dr. estevez about holding xaralto in the setting of atrial fibrillation. * We will dose her xaralto today and check CBCs tomorrow morning and will make changes accordingly as per school childcare attendant.
--- NOTE | 2017-02-17 11:54 | Patient Discharge Instructions ---
Discharge Instructions General Discharge Information You were seen/treated for: Symptomatic anemia You had these procedures: None Special Instructions: Please follow-up with primary care doctor in 1-2 weeks Please follow-up with your environmental quality analyst in 1-2 weeks Please follow-up with doctor Katarina in 1-2 weeks Diet Recommended Diet: Heart Healthy Activity Full Activity/No Limits: Yes Acute Coronary Syndrome Inclusion Criteria At DC or during hospital stay patient has or had the following: ACS DIAGNOSIS No Discharge Core Measures Meds if any: Prescribed or Continued at Discharge Meds if any: NOT Prescribed or Continued at Discharge Congestive Heart Failure Inclusion Criteria At DC or during hospital stay patient has or had the following: CHF DIAGNOSIS No Discharge Core Measures Meds if any: Prescribed or Continued at Discharge Meds if any: NOT Prescribed or Continued at Discharge Cerebrovascular accident Inclusion Criteria At DC or during hospital stay patient has or had the following: CVA/TIA Diagnosis No Discharge Core Measures Meds if any: Prescribed or Continued at Discharge Meds if any: NOT Prescribed or Continued at Discharge Venous thromboembolism Inclusion Criteria VTE Diagnosis No VTE Type NONE VTE Confirmed by (Test) NONE Discharge Core Measures - Per Current guidelines, there needs to be overlap - treatment for the first 5 days of Warfarin therapy. - If discharged on Warfarin prior to 5 days of - overlap therapy, the patient will need to be - assessed for post discharge needs including - *Post discharge parental anticoagulation - *Warfarin and/or parental anticoagulation education - *Follow up date to check INR post discharge At least 5 days overlap therapy as Inpatient No Meds if any: Prescribed or Continued at Discharge Note: Overlap Therapy is Warfarin and Anticoagulant Meds if any: NOT Prescribed or Continued at Discharge
--- NOTE | 2017-02-17 14:11 | Cons- Cardiology ---
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 Her past medical history is significant for atrial fibrillation on anticoagulant therapy, chronic lung disease, hypertension, hyperlipidemia, hypothyroidism, iron deficiency anemia, etc. The patient was brought to [facility] from pulmonary rehabilitation for transfusion for symptomatic anemia. On presentation, repeat hemoglobin was 6.4 and hematocrit is 20.3. On February 13, her hemoglobin was 7 and her hemoglobin was 8.5 on February 05. -The patient has known anemia and has been followed by Dr. HARPER and Toma. She has undergone an extensive GI workup. On January 21, she had 5 polyps removed from her stomach. The colonoscopy was unrevealing. In the past, she has had guaiac positive stools. There has been no evidence of any active bleeding recently. Apparently, the possibility has been raised whether the patient may have some AVMs. She is apparently scheduled to have a pill cam as an outpatient. Otherwise, the patient is stable from a cardiovascular standpoint. The patient remains anxious about restarting her anticoagulation due to her atrial fibrillation and risk of stroke. Allergies/Medications Allergies: Coded Allergies: menotropins (HIVES FROM PERGONAL 11/15/15) apixaban (HEMATOMA TO HIP 02/02/17) Home Med List: Acetaminophen (Arthritis Pain Reliever) 650 MG TABLET.ER 2 TAB PO PRN PAIN ( Reported) Albuterol Sulfate 2.5 MG/3 ML (0.083 %) VIAL.NEB 1 Vial INH/DANIKA PRN RESPIRATORY (Reported) Alprazolam 0.5 MG TABLET 1 TAB PO DAILY ANXIETY (Reported) Arformoterol Tartrate (Brovana) 15 MCG/2 ML VIAL.NEB 1 VIAL INH DAILY RESPIRATORY (Reported) Ascorbic Acid (Vitamin C) 500 MG CAPSULE.ER 1 CAP PO DAILY SUPPLEMENT ( Reported) Budesonide (Pulmicort) 0.5 MG/2 ML AMPUL.NEB 1 Vial INH/DANIKA BID COPD ( Reported) Bupropion HCl (Bupropion HCl Sr) 150 MG TABLET.ER 1 TAB PO QAM DEPRESSION ( Reported) Calcium Carbonate/Vitamin D3 (Caltrate 600 + D Tablet) 1 EACH TABLET 1 TAB PO DAILY SUPPLEMENT (Reported) Cholecalciferol (Vitamin D3) (Vitamin D3) 400 UNIT TABLET 1 TAB PO DAILY SUPPLEMENT (Reported) Ciprofloxacin HCl 250 MG TABLET 250 MG PO BID lung infection [Cordarone] 400 MG PO TID heart rate Diltiazem HCl (Diltiazem ER) 180 MG CAPSULE.ER 1 TAB PO DAILY heart rate ( Reported) Docusate Sodium (Colace) 100 MG CAPSULE 2 CAP PO QPM STOOL SOFTENER (Reported ) Ezetimibe (Zetia) 10 MG TABLET 1 TAB PO DAILY CHOLESTEROL (Reported) Ferrous Sulfate 325 MG (65 MG IRON) TABLET 1 TAB PO DAILY SUPPLEMENT ( Reported) Fluticasone/Salmeterol (Advair 250-50 Diskus) 250 MCG-50 MCG/DOSE BLST.W.DEV 1 PUF INH BID BREATHING PROBLEMS (Reported) Folic Acid 1 MG TABLET 1 TAB PO DAILY SUPPLEMENT (Reported) Furosemide (Lasix) 40 MG TABLET 1 TAB PO BID WATER PILL (Reported) Guaifenesin (Mucinex) 600 MG TAB.ER.12H 1 TAB PO DAILY EXPECTORANT (Reported) Hydromorphone HCl 2 MG TABLET 2 MG PO Q4 HRS NEEDED PRN PAIN SCALE 7-10 ( SEVERE) Levothyroxine Sodium 100 MCG TABLET 1 TAB PO DAILY AC THYROID (Reported) Losartan Potassium 50 MG TABLET 1 TAB PO DAILY BP (Reported) Montelukast Sodium 10 MG TABLET 1 TAB PO DAILY COPD (Reported) Nitroglycerin (Nitro-Dur) 0.6 MG/HOUR PATCH.TD24 1 PATCH TOP DAILY HEART ( Reported) [place]-3 Fatty Acids/Fish Oil (Fish Oil 1,000 MG Capsule) 340 MG-1,000 MG CAPSULE 2 CAP PO DAILY SUPPLEMENT (Reported) Omeprazole 40 MG CAPSULE.DR 1 CAP PO DAILY GI (Reported) Potassium Chloride 20 MEQ TAB.ER.PRT 1 TAB PO DAILY SUPPLEMENT (Reported) Pravastatin Sodium (Pravachol) 40 MG TABLET 1 TAB PO QPM CHOLESTEROL ( Reported) Prednisone 10 MG TABLET 1 TAB PO DAILY breathing please take as the following 4 tabs X 3 days 3 tabs X 3 days 2 tabs X 3 days 1 tabs X 3 days then stop Rivaroxaban (Xarelto) 10 MG TABLET 20 MG PO 1700 blood thinner please follow with cardilogy as an out patinet to refill this medication Roflumilast (Daliresp) 500 MCG TABLET 1 TAB PO DAILY COPD (Reported) Sertraline HCl (Zoloft) 100 MG TABLET 2 TAB PO DAILY DEPRESSION (Reported) Sucralfate 1 GRAM/10 ML ORAL.SUSP 1 GM PO TID THROAT PAIN Tiotropium [place] (Spiriva) 18 MCG CAP.W.DEV 1 CAP INH DAILY copd Reason to Stop at ADM:TRC NEBS ORDERS Vitamin E (Dl,Tocopheryl Acet) (Vitamin E) 400 UNIT CAPSULE 1 TAB PO DAILY SUPPLEMENT (Reported) Current Medications: Current Medications Sig/Lana Start time Last Medication Dose Route Stop Time Status Admin Acetaminophen 650 MG Q6PRN PRN 02/15 2315 AC PO Albuterol Sulfate 3 ML EVERY 4 HRS/AWAKE 02/16 1600 AC 02/17 INH 1236 Alprazolam 0.5 MG BID 02/17 0016 AC 02/17 PO 02/24 0015 0941 Alprazolam 0.5 MG DAILY 02/16 1100 DC 02/16 PO 02/23 1059 1054 Amiodarone HCl 400 MG TID 02/16 0030 AC 02/17 PO 0937 Arformoterol Tartrate 15 MCG BID 02/16 2200 AC 02/17 INH 1236 Ascorbic Acid 500 MG DAILY 02/16 1000 AC 02/17 PO 0939 Budesonide/ 2 PUF BID 02/16 1000 AC 02/17 Formoterol Fumarate INH 0942 Bupropion HCl 150 MG QAM 02/16 1000 AC 02/17 PO 0939 Calcium/Vitamin D 1 TAB DAILY 02/16 1000 AC 02/17 PO 0937 Cholecalciferol 400 IU DAILY 02/16 1000 AC 02/17 PO 0939 Diltiazem HCl 180 MG DAILY 02/16 1000 AC 02/17 PO 0938 Docusate Sodium 200 MG QPM 02/16 2200 AC 02/16 PO 2211 Ezetimibe 10 MG DAILY 02/16 1000 AC 02/17 PO 0939 Ferrous Sulfate 325 MG DAILY 02/16 1000 AC 02/17 PO 0938 Fish Oil 2,100 MG DAILY 02/16 1000 AC 02/17 PO 0941 Folic Acid 1 MG DAILY 02/16 1000 AC 02/17 PO 0938 Furosemide 40 MG BID 02/16 1000 AC 02/17 PO 0938 Guaifenesin 600 MG DAILY 02/16 1000 AC 02/17 PO 0939 Hydromorphone HCl 4 MG Q4P PRN 02/16 1100 AC 02/17 PO 1222 Levothyroxine Sodium 0.1 MG DAILY AC 02/16 0700 AC 02/17 PO 0604 Lidocaine/Diphenhydr/ 15 ML TID PRN 02/16 0300 AC 02/16 Alum/Mg/Simeth PO 1040 Losartan Potassium 50 MG 0 02/17 2200 AC PO Losartan Potassium 50 MG DAILY 02/16 1000 DC 02/16 PO 1028 Melatonin 5 MG AT BEDTIME 02/16 2200 AC 02/16 PO 2212 Montelukast Sodium 10 MG 0 02/17 2200 AC PO Montelukast Sodium 10 MG DAILY 02/16 1000 DC 02/17 PO 1032 Nitroglycerin 0.6 MG DAILY 02/16 1000 AC 02/17 TOP 0936 Nystatin 5 ML 4 TIMES/DAY 02/16 1100 AC 02/17 PO 1334 Omeprazole 40 MG DAILY AC 02/16 0700 AC 02/17 PO 0604 Oxycodone HCl 5 MG Q6 PRN 02/16 0500 AC 02/17 PO 0953 Polyethylene Glycol 17 GM DAILY 02/16 1000 AC 02/17 PO 0954 Potassium Chloride 20 MEQ DAILY 02/16 1000 AC 02/17 PO 0938 Pravastatin Sodium 40 MG 1700 02/16 1700 AC 02/16 PO 1628 Prednisone 10 MG DAILY 02/16 1000 DC 02/17 PO 02/17 1001 0939 Rivaroxaban 20 MG 1700 02/17 1700 AC PO Sertraline HCl 200 MG DAILY 02/16 1000 AC 02/17 PO 0940 Tiotropium [place] 1 PUF DAILY 02/16 1000 AC 02/17 INH 0942 Vitamin E 400 IU DAILY 02/16 1000 AC 02/17 PO 0939 Past History Travel History Traveled to [place] past 21 day No Medical History Blood Transfusion Hx: Yes Neurological: meningitis (viral in 2008) EENT: cataracts (on right with IOL), hearing loss Cardiovascular: AFIB, CAD (s/p MN), hypertension, hyperlipidemia, MN BLOCKED ARTERY atrial fibrillation PHARMACEUTICAL CONVERSION WITH TIKOSYN Respiratory: COPD, pneumonia, 2L N/C O2 PRN Gastrointestinal: GERD, irritable bowel syndrome, ULCERATIVE COLITIS Hepatic: NONE Renal: NONE Musculoskeletal: fibromyalgia, osteoarthritis Psychiatric: anxiety, depression, PTSD fibromyalgia Endocrine: hypothyroidism Blood Disorders: anemia Cancer(s): SKIN CA (skin cancer) 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 Other Medical Hx: Irritable bowel syndrome viral meningitis [id number] hypothyroidism right cataract extraction with IOL implant depression arthritis HTN (HYPERTENSION) (401.9 | I10) CAD s/p [place] COPD tonsillectomy GERD discoid lupus Pneumonia miscarriage in 1990 appendectomy ulcerative colitis eczema surgical repair of hiatal hernia skin cancer Atrial Fibrillation Surgical History Surgical History: appendectomy, surgical repair of hiatal hernia tonsillectomy Family History Relations & Conditions If Any: MOTHER FH: COPD (chronic obstructive pulmonary disease) FH: heart disease FATHER Alzheimer's disease Psychosocial History Who Do You Live With? child Services at Home: [facility] Primary Language: Kiswahili Smoking Status: Former Smoker ETOH Use: denies use Illicit Drug Use: denies illicit drug use Functional Ability ADLs Independent: dressing, eating, toileting, bathing. Ambulation: independent IADLs Independent: shopping, housework, finances, food prep, telephone, transportation , medication admin. Exam & Diagnostic Data Vital Signs and I&O Vital Signs Date Time Temp Pulse Resp B/P B/P Pulse O2 O2 Flow FiO2 Mean Ox Delivery Rate 02/17 0937 92 112/58 02/17 0910 99 Nasal 2.0L Cannula 02/17 0800 98 Nasal 2.0L Cannula 02/17 0727 98.3 87 20 134/64 99 Nasal 2.0L Cannula 02/17 0000 98 Nasal 2.0L Cannula 02/16 2212 78 138/64 02/16 1700 98 Nasal 2.0L Cannula 02/16 1628 104 134/58 02/16 1459 97.8 114 20 142/60 98 Nasal 2.0L Cannula Intake & Output 02/17 1600 02/17 0800 02/17 0000 02/16 1600 02/16 0800 02/16 0000 Intake Total 240 480 960 800 Output Total 600 500 500 Balance -360 480 460 800 -500 Intake, Blood 350 Product Intake, Oral 240 480 960 450 Output, Urine 600 500 500 Patient 135 lb 135 lb Weight Weight Reported by Patient Measurement Method Physical Exam: General Appearance Alert, Oriented X3, Cooperative, No Acute Distress Skin pale HEENT Atraumatic, PERRLA, EOMI, Mucous Membr. moist/pink, pale conjunctiva Neck Supple, No JVD, +2 Carotid Pulse wo Bruit, No LAD Cardiovascular Normal S1, Normal S2, irregularly irregular rate Lungs diffuse exp wheezes over all lung gutierrez Abdomen Normal Bowel Sounds, Soft, No Tenderness Neurological nonfocal Extremities no edema on right lower extremity 1+ pitting edema of left lower extremity up to the ankle Vascular Normal Pulses, Pulses Symmetrical, normal cap refill Labs/Wan Results: Laboratory Tests 02/17 02/16 0610 0700 Chemistry Sodium (137 - 145 mmol/L) 136 L Potassium (3.5 - 5.1 mmol/L) 3.8 Chloride (98 - 107 mmol/L) 97 L Carbon Dioxide (22 - 30 mmol/L) 32 H Anion Gap (5 - 16) 7 BUN (7 - 17 mg/dL) 17 Creatinine (0.5 - 1.0 mg/dL) 0.8 Estimated GFR (>60 ml/min) > 60 BUN/Creatinine Ratio (7 - 25 %) 21.3 Iron (37 - 170 ug/dL) < 10 L TIBC (265 - 497 ug/dL) 347 Ferritin (11.1 - 264 ng/mL) 26.9 Vitamin B12 (239 - 931 pg/mL) 911 Folate (2.76 - 20.0 ng/mL) > 20.0 H TSH (0.270 - 4.200 uIU/mL) 4.990 H Free T4 (0.78 - 2.44 ng/dL) 1.64 Hematology CBC w Diff NO MAN DIFF REQ NO MAN DIFF REQ WBC (4.8 - 10.8 /CUMM) 10.2 14.1 H RBC (4.20 - 5.40 /CUMM) 2.93 L 3.03 L Hgb (12.0 - 16.0 G/DL) 8.5 L 8.8 L Hct (37 - 47 %) 26.6 L 27.6 L MCV (81.0 - 99.0 FL) 90.7 91.0 MCH (27.0 - 31.0 PG) 29.1 28.9 RDW (11.5 - 14.5 %) 20.5 H 19.9 H Plt Count (130 - 400 /CUMM) 390 406 H MPV (7.4 - 10.4 FL) 6.1 L 5.9 L Gran % (42.2 - 75.2 %) 78.4 H 81.8 H Lymphocytes % (20.5 - 51.1 %) 10.8 L 10.6 L Monocytes % (1.7 - 9.3 %) 8.1 5.8 Eosinophils % (0 - 5 %) 2.7 1.7 Basophils % (0.0 - 2.0 %) 0 L 0.1 Absolute Granulocytes (1.4 - 6.5 /CUMM) 8.0 H 11.5 H Absolute Lymphocytes (1.2 - 3.4 /CUMM) 1.1 L 1.5 Absolute Monocytes (0.10 - 0.60 /CUMM) 0.8 H 0.8 H Absolute Eosinophils (0.0 - 0.7 /CUMM) 0.3 0.2 Absolute Basophils (0.0 - 0.2 /CUMM) 0 0 PUBS MCHC (33.0 - 37.0 G/DL) 32.1 L 31.8 L 02/15 1620 Chemistry Sodium (137 - 145 mmol/L) 133 L Potassium (3.5 - 5.1 mmol/L) 4.0 Chloride (98 - 107 mmol/L) 94 L Carbon Dioxide (22 - 30 mmol/L) 32 H Anion Gap (5 - 16) 7 BUN (7 - 17 mg/dL) 23 H Creatinine (0.5 - 1.0 mg/dL) 0.8 Estimated GFR (>60 ml/min) > 60 BUN/Creatinine Ratio (7 - 25 %) 28.8 H Glucose (65 - 99 mg/dL) 100 H Calcium (8.4 - 10.2 mg/dL) 8.7 Total Bilirubin (0.2 - 1.3 mg/dL) 0.2 AST (14 - 36 U/L) 20 ALT (9 - 52 U/L) 46 Alkaline Phosphatase (<127 U/L) 65 Troponin I (< 0.11 ng/ml) 0.01 [id number] Pept (<125 pg/mL) 1570 H Total Protein (6.3 - 8.2 g/dL) 5.6 L Albumin (3.5 - 5.0 g/dL) 3.5 Globulin (1.9 - 4.2 gm/dL) 2.1 Albumin/Globulin Ratio (1.1 - 2.2 %) 1.7 Hematology CBC w Diff MAN DIFF ORDERED WBC (4.8 - 10.8 /CUMM) 13.8 H RBC (4.20 - 5.40 /CUMM) 2.16 L Hgb (12.0 - 16.0 G/DL) 6.4 *L Hct (37 - 47 %) 20.3 L MCV (81.0 - 99.0 FL) 94.0 MCH (27.0 - 31.0 PG) 29.8 RDW (11.5 - 14.5 %) 19.1 H Plt Count (130 - 400 /CUMM) 476 H MPV (7.4 - 10.4 FL) 5.8 L Gran % (42.2 - 75.2 %) 91.6 H Lymphocytes % (20.5 - 51.1 %) 4.5 L Monocytes % (1.7 - 9.3 %) 3.1 Eosinophils % (0 - 5 %) 0.8 Basophils % (0.0 - 2.0 %) 0 L Absolute Granulocytes (1.4 - 6.5 /CUMM) 12.6 H Segmented Neutrophils (42.2 - 75.2 %) 89 H Band Neutrophils (0.0 - 5.0 %) 2 Absolute Lymphocytes (1.2 - 3.4 /CUMM) 0.6 L Lymphocytes (20.5 - 51.1 %) 8 L Absolute Monocytes (0.10 - 0.60 /CUMM) 0.4 Absolute Eosinophils (0.0 - 0.7 /CUMM) 0.1 Absolute Basophils (0.0 - 0.2 /CUMM) 0 Metamyelocytes (0.0 - 1.0 %) 1 Nucleated RBCs (0.0 - 0.0 /100WBC) 1 H Platelet Estimate (ADEQUATE) INCREASED Polychromasia 1+ Hypochromic-Microcytic 2+ Basophilic Stippling 1+ Anisocytosis 2+ Macrocytic Cells 1+ Ovalocytes FEW Elliptocytes RARE PUBS MCHC (33.0 - 37.0 G/DL) 31.7 L Assessment/Plan Assessment/Plan Assessment: 1. Atrial fibrillation-at the present time, I do not believe there is any simple straightforward answer to the proposed question. Clearly, the patient has ongoing low-level GI blood loss from an unknown site. Her workup has not been revealing to this point but is ongoing. The patient, does have ongoing issues with atrial fibrillation and an elevated stroke risk with a CHADSVAS score of at least 4. Overall, I would suggest that the risk of potential stroke always the risk of ongoing low-level bleeding and transfusion requirement. The patient appears to agree with this. 2. Chronic anemia 3. Low-level ongoing GI bleeding 4. COPD 5. Hypertension Recommendation: -The patient will stay in the hospital for another 24 hours to monitor her CBCs. -I discussed the situation at length with the medical team and the patient. I believe that it would be worthwhile to start the patient back on her oral anticoagulation with monitoring of her CBCs at the present time. -Outpatient pill cam to be scheduled -Further plans after the morning blood work is available. Consult Acknowledgment - Thank you for your consult request."
[2017-02-17 14:15] VITALS: BP 138/70
[2017-02-17 22:00] VITALS: BP 140/60
[2017-02-18 07:46] VITALS: BP 119/67
[2017-02-18 08:56] LABS: ABSOLUTE BASOPHIL COUNT 0 /CUMM (0.0-0.2); ABSOLUTE EOSINOPHIL COUNT 0.4 /CUMM (0.0-0.7); ABSOLUTE GRANULOCYTE CT 9.3 /CUMM (1.4-6.5); ABSOLUTE MONOCYTE COUNT 0.8 /CUMM (0.10-0.60); BASOPHIL % 0.1 % (0.0-2.0); EOSINOPHIL % 3.5 % (0-5); GRANULOCYTE % 80.7 % (42.2-75.2); HEMATOCRIT 29.2 % (37-47); MEAN CORPUSCULAR HGB CONC 31.8 G/DL (33.0-37.0); MEAN CORPUSCULAR VOLUME 91.1 FL (81.0-99.0); MEAN PLATELET VOLUME 6.1 FL (7.4-10.4); PLATELET COUNT 405 /CUMM (130-400); RBC DISTRIBUTION WIDTH 19.8 % (11.5-14.5); RED BLOOD CELL CT 3.21 /CUMM (4.20-5.40)
--- NOTE | 2017-02-18 09:15 | PN- Housestaff ---
ALAN ETIENNE,NURA 02/18/17 0915: Subjective Follow-up For: # Symptomatic anemia # Recently treated pneumonia # Thrush # Chronic pain Complaints: no complaints Subjective: Says she is doing a lot better today, eager to be discharged. Review of Systems Constitutional: Denies: see HPI. Objective Last 24 Hrs of Vital Signs/I&O Vital Signs Date Time Temp Pulse Resp B/P B/P Pulse O2 O2 Flow FiO2 Mean Ox Delivery Rate 02/18 0751 98 Nasal 2.0L Cannula 02/18 0746 98.0 103 20 119/67 96 Nasal 2.0L Cannula 02/18 0000 Nasal 2.0L Cannula 02/17 2200 97.8 105 20 140/60 100 Nasal 2.0L Cannula 02/17 2106 105 140/60 02/17 2105 105 140/60 02/17 1629 97 Nasal 2.0L Cannula 02/17 1624 98 140/80 02/17 1600 96 Nasal 2.0L Cannula 02/17 1415 97.9 92 20 138/70 96 Nasal 2.0L Cannula Intake & Output 02/18 1600 02/18 0800 02/18 0000 Intake Total 250 900 Output Total 400 Balance -150 900 Intake, Oral 250 900 Output, Urine 400 Physical Exam General Appearance: Alert, Oriented X3, Cooperative, No Acute Distress HEENT: PERRLA, Mucous Membr. moist/pink Cardiovascular: Regular Rate, Normal S1, Normal S2 Lungs: scattered crackles at the bases Abdomen: Normal Bowel Sounds, Soft, No Tenderness Extremities: No Edema Current Medications: Current Medications Sig/Lana Start time Last Medication Dose Route Stop Time Status Admin Acetaminophen 650 MG Q6PRN PRN 02/15 2315 AC PO Albuterol Sulfate 3 ML EVERY 4 HRS/AWAKE 02/16 1600 AC 02/18 INH 0747 Alprazolam 0.5 MG BID 02/17 0016 AC 02/17 PO / 0015 2244 Amiodarone HCl 400 MG TID 02/16 0030 AC 02/17 PO 2105 Arformoterol Tartrate 15 MCG BID 02/16 2200 AC 02/18 INH 0747 Ascorbic Acid 500 MG DAILY 02/16 1000 AC 02/17 PO 0939 Budesonide/ 2 PUF BID 02/16 1000 AC 02/17 Formoterol Fumarate INH 210 Bupropion HCl 150 MG QAM 02/16 1000 AC 02/17 PO 0939 Calcium/Vitamin D 1 TAB DAILY 02/16 1000 AC 02/17 PO 0937 Cholecalciferol 400 IU DAILY 02/16 1000 AC 02/17 PO 0939 Diltiazem HCl 180 MG DAILY 02/16 1000 AC 02/17 PO 0938 Docusate Sodium 200 MG QPM 02/16 2200 AC 02/17 PO 2106 Ezetimibe 10 MG DAILY 02/16 1000 AC 02/17 PO 0939 Ferrous Sulfate 325 MG DAILY 02/16 1000 AC 02/17 PO 0938 Fish Oil 2,100 MG DAILY 02/16 1000 AC 02/17 PO 0941 Folic Acid 1 MG DAILY 02/16 1000 AC 02/17 PO 0938 Furosemide 40 MG BID 02/16 1000 AC 02/17 PO 2106 Guaifenesin 600 MG DAILY 02/16 1000 AC 02/17 PO 0939 Hydromorphone HCl 4 MG Q4P PRN 02/16 1100 AC 02/17 PO 2111 Levothyroxine Sodium 0.1 MG DAILY AC 02/16 0700 AC 02/18 PO 0605 Lidocaine/Diphenhydr/ 15 ML TID PRN 02/16 0300 AC 02/16 Alum/Mg/Simeth PO 1040 Losartan Potassium 50 MG 0 02/17 2200 AC 02/17 PO 2106 Losartan Potassium 50 MG DAILY 02/16 1000 DC 02/16 PO 1028 Melatonin 5 MG AT BEDTIME 02/16 2200 AC 02/17 PO 2106 Montelukast Sodium 10 MG 0 02/17 2200 AC 02/17 PO 2106 Montelukast Sodium 10 MG DAILY 02/16 1000 DC 02/17 PO 1032 Nitroglycerin 0.6 MG DAILY 02/16 1000 AC 02/17 TOP 0936 Nystatin 5 ML 4 TIMES/DAY 02/16 1100 AC 02/17 PO 2105 Omeprazole 40 MG DAILY AC 02/16 0700 AC 02/18 PO 0605 Oxycodone HCl 5 MG Q6 PRN 02/16 0500 AC 02/18 PO 0605 Polyethylene Glycol 17 GM DAILY 02/16 1000 AC 02/17 PO 0954 Potassium Chloride 20 MEQ DAILY 02/16 1000 AC 02/17 PO 0938 Pravastatin Sodium 40 MG 1700 02/16 1700 AC 02/17 PO 1624 Prednisone 10 MG DAILY 02/16 1000 DC 02/17 PO 02/17 1001 0939 Rivaroxaban 20 MG 1700 02/17 1700 AC 02/17 PO 1624 Sertraline HCl 200 MG DAILY 02/16 1000 AC 02/17 PO 0940 Tiotropium [place] 1 PUF DAILY 02/16 1000 AC 02/17 INH 0942 Vitamin E 400 IU DAILY 02/16 1000 AC 02/17 PO 0939 Last 24 Hrs of Lab/Wan Results Last 24 Hrs of Labs/Mics: Laboratory Tests 02/18/17 0720: Anion Gap 9, Estimated GFR > 60, BUN/Creatinine Ratio 23.8, CBC w Diff Pending, WBC Pending, RBC Pending, Hgb Pending, Hct Pending, MCV Pending, MCH Pending, RDW Pending, Plt Count Pending, MPV Pending, Gran % Pending, Lymphocytes % Pending, Monocytes % Pending, Eosinophils % Pending, Basophils % Pending, Absolute Granulocytes Pending, Absolute Lymphocytes Pending, Absolute Monocytes Pending, Absolute Eosinophils Pending, Absolute Basophils Pending, PUBS MCHC Pending Lines/Diet/Fluids Lines: peripheral lines Assessment/Plan Assessment: 67-year-old female with PMH of COPD, atrial fibrillation on xarelto, HTN, HLD, anxiety, depression, hypothyroidism, fibromyalgia, iron deficiency anemia, was brought in from pulmonary rehab for PRBC transfusion for symptomatic anemia. Her h/h on presentation was 6.4/20.3. On February 13, hg was 7, and on February 05, it was 8.5. She feels exahusted and run down. Vitals at the time of admission-98, 105, 15, 137/77, saturating at 100% on room air Pertinent labs on admission WBC 13.8, hemoglobin 6.4 and hematocrit 20.3, platelets 476 BUN 23 CXR The lungs are well expanded. Patchy left basilar opacity. No edema or effusion. No pneumothorax. The cardiomediastinal silhouette is within normal limits of size, with a calcified aorta. IMPRESSION: Increased patchy left basilar opacity may represent atelectasis or pneumonia. PROBLEM LIST 1. Symptomatic anemia 2. Recently treated pneumonia 3. Atrial fibrillation 4. COPD 5. Anxiety 6. Depression 7. Hypertension 8. Hypothyroidism 9. GERD 10. Hyperlipidemia 11. Constipation Symptomatic anemia * She is status post 2 units PRBC transfusion * Hemoglobin improved stable at 9.3 today despite restarting xarelto * Goal hemoglobin greater than 8 * Fall precautions * Continue iron sulfate * Continue folate * Stable for DC today to follow up with her PCP, GI and Workers Compensation Specialist as outpatient Atrial fibrillation Of note, patient was on eliquis in the past for atrial fibrillation, she reverted back to NSR for about 5 months, hence eliquis discontinued. Post endoscopy/colonoscopy on january 21, she went back into atrial fibrillation and was complaining of cough with yellow/grayish sputum. She was admitted to the hospital with pneumonia and was started on xarelto. She was discharged to pulmonary rehab on prednisone and ciprofloxacin for 2 weeks. * She is currently on a high loading dose of 400mg TID of amiodarone; cardiology consulted for recommended maintenace dose-will discharge her on the new dose once they make their recommendation * Will continue home dose of Cardizem * H&H stable on xarelto; will continue xarelto for now Recently treated pneumonia * Completed 2 week course of cipro * Monitor off abx * Now off prednisone as well Bilateral leg swelling She also noted bilateral leg swelling over the past week, that has significantly improved on the day of admission. * Probnp 1570 without obvious chf symptoms. * Will continue home dose of Lasix 40 mg twice a day * Continue K-Dur tablets COPD * Total respiratory care * Continue home nebulizers and inhalers * Continue albuterol, Symbicort * Continue Spiriva * Continue brivana * Continue montelukast hypertension Continue home dose of losartan Hypothyroidism Continue home dose of Synthyroid GERD Continue omeprazole Anxiety Continue Xanax 0.5 mg daily Depression Continue sertraline and bupropion Constipation Continue bowel regimen Hyperlipidemia Continue Lipitor Chronic shoulder pain She has chronic shoulder pain, for which she takes dilaudid. At baseline, she is constipated. * Dilaudid 2 mg q4p severe pain, * roxicodone 5mg q6p moderate pain, * tylenol 650 q6p mild Thrush * magic mouth wash Diet: Heart healthy DVT ppx: mech, no pharm due to symptomatic anemia FULL CODE Problem List: 1. Symptomatic anemia Pain Ratin Pain Location: shoulder Pain Goal: Remain pain free Pain Plan: per current plan Tomorrow's Labs & Rationales: none-DC today TIFF LEE 02/18/17 1031: Attending MD Review Statement Attending Statement Attending MD Statement: examined this patient, discuss w/resident/PA/MEDICAL DATA ANALYST, agreed w/resident/PA/MEDICAL DATA ANALYST, discussed with family, reviewed EMR data (avail), discussed with nursing, discussed with case mgmt, reviewed images, amended to note Attending Assessment/Plan: ASSESSMENT 1. Acute blood loss anemia 2. GI bleed Acute 2/2 AVMs. 3. Afib on xarelto on amidoarone/diltiazem 4. Hypertension 5. CAD s/p IWMI 6. Severe COPD on home oxygen 2l, poor lung reserves 7. Chronic distolic heart failure compensated. 8. Hyponatremia 2/2 IVVD improving. PLAN Admit to inpatient medical services Patient received 2unit of PBCS during this hospital stay. Continue monitor CBC, F/u GI, consulted cardiology for a/c, recommend give a dose of xarelto and post xarelto cbc stable, patient in agreement to start a/c. check amiodarone dosing with cards c/w COPD stable. resume home meds gi/dvt prophalxis. cont current care d/c planning, f/u o/p PCP , cardio and GI. Patient stable for discharge. 2. GI bleed Acute 2/2 AVMs. 3. Afib on xarelto on amidoarone/diltiazem 4. Hypertension 5. CAD s/p IWMI 6. Severe COPD on home oxygen 2l, poor lung reserves 7. Chronic distolic heart failure compensated. 8. Hyponatremia 2/2 IVVD improving. PLAN Admit to inpatient medical services Patient received 2unit of PBCS during this hospital stay. Continue monitor CBC, F/u GI, consulted cardiology for a/c, recommend give a dose of xarelto and post xarelto cbc stable, patient in agreement to start a/c. check amiodarone dosing with cards c/w COPD stable. resume home meds gi/dvt prophalxis. cont current care d/c planning, f/u o/p PCP , cardio and GI. Patient stable for discharge.
[2017-02-18 09:52] VITALS: BP 119/67
[2017-02-18] MEDS ORDERED: MELATONIN5 M7 PO (10:03)
[2017-02-18 10:13] LABS: WHITE BLOOD CELL COUNT 11.6 /CUMM (4.8-10.8)
[2017-02-18] MEDS ORDERED: AMIODARONE HCL200 M1 PO (13:14)
[2017-02-18] MEDS ORDERED: XARELTO10 M1 PO (13:15)
--- NOTE | 2017-02-18 14:36 | PN- Cardiology ---
Subjective Subjective: The patient is doing well today and is anxious to go home. She was restarted on her anticoagulation yesterday and has been stable. Objective Vital Signs and I&Os Vital Signs Date Time Temp Pulse Resp B/P B/P Pulse O2 O2 Flow FiO2 Mean Ox Delivery Rate 02/18 0952 119/67 02/18 0800 94 Nasal 2.0L Cannula 02/18 0751 98 Nasal 2.0L Cannula 02/18 0746 98.0 103 20 119/67 96 Nasal 2.0L Cannula 02/18 0000 Nasal 2.0L Cannula 02/17 2200 97.8 105 20 140/60 100 Nasal 2.0L Cannula 02/17 2106 105 140/60 02/17 2105 105 140/60 02/17 1629 97 Nasal 2.0L Cannula 02/17 1624 98 140/80 02/17 1600 96 Nasal 2.0L Cannula Intake & Output 02/18 1600 02/18 0800 02/18 0000 02/17 1600 02/17 0800 02/17 0000 Intake Total 250 900 800 240 480 Output Total 400 600 Balance -150 900 800 -360 480 Intake, Oral 250 900 800 240 480 Output, Urine 400 600 Patient 135 lb Weight Weight Reported by Patient Measurement Method Current Medications: Current Medications Sig/Lana Start time Last Medication Dose Route Stop Time Status Admin Acetaminophen 650 MG Q6PRN PRN 02/15 2315 AC PO Albuterol Sulfate 3 ML EVERY 4 HRS/AWAKE 02/16 1600 AC 02/18 INH 1247 Alprazolam 0.5 MG BID 02/17 0016 AC 02/18 PO 02/24 0015 1011 Amiodarone HCl 400 MG TID 02/16 0030 AC 02/18 PO 0952 Arformoterol Tartrate 15 MCG BID 02/16 2200 AC 02/18 INH 0747 Ascorbic Acid 500 MG DAILY 02/16 1000 AC 02/18 PO 0957 Budesonide/ 2 PUF BID 02/16 1000 AC 02/18 Formoterol Fumarate INH 0956 Bupropion HCl 150 MG QAM 02/16 1000 AC 02/18 PO 0957 Calcium/Vitamin D 1 TAB DAILY 02/16 1000 AC 02/18 PO 0951 Cholecalciferol 400 IU DAILY 02/16 1000 AC 02/18 PO 0957 Diltiazem HCl 180 MG DAILY 02/16 1000 AC 02/18 PO 0952 Docusate Sodium 200 MG QPM 02/16 2200 AC 02/17 PO 2106 Ezetimibe 10 MG DAILY 02/16 1000 AC 02/18 PO 0958 Ferrous Sulfate 325 MG DAILY 02/16 1000 AC 02/18 PO 0953 Fish Oil 2,100 MG DAILY 02/16 1000 AC 02/18 PO 0956 Folic Acid 1 MG DAILY 02/16 1000 AC 02/18 PO 0953 Furosemide 40 MG BID 02/16 1000 AC 02/18 PO 0953 Guaifenesin 600 MG DAILY 02/16 1000 AC 02/18 PO 0955 Hydromorphone HCl 4 MG Q4P PRN 02/16 1100 AC 02/18 PO 0950 Levothyroxine Sodium 0.1 MG DAILY AC 02/16 0700 AC 02/18 PO 0605 Lidocaine/Diphenhydr/ 15 ML TID PRN 02/16 0300 AC 02/16 Alum/Mg/Simeth PO 1040 Losartan Potassium 50 MG 02/17 2200 AC 02/17 PO 2106 Melatonin 5 MG AT BEDTIME 02/16 2200 AC 02/17 PO 2106 Montelukast Sodium 10 MG 02/17 2200 AC 02/17 PO 2106 Nitroglycerin 0.6 MG DAILY 02/16 1000 AC 02/18 TOP 0957 Nystatin 5 ML 4 TIMES/DAY 02/16 1100 AC 02/18 PO 1322 Omeprazole 40 MG DAILY AC 02/16 0700 AC 02/18 PO 0605 Oxycodone HCl 5 MG Q6 PRN 02/16 0500 AC 02/18 PO 0605 Polyethylene Glycol 17 GM DAILY 02/16 1000 AC 02/18 PO 0955 Potassium Chloride 20 MEQ DAILY 02/16 1000 AC 02/18 PO 0953 Pravastatin Sodium 40 MG 1700 02/16 1700 AC 02/17 PO 1624 Rivaroxaban 20 MG 02/17 1700 AC 02/17 PO 1624 Sertraline HCl 200 MG DAILY 02/16 1000 AC 02/18 PO 0958 Tiotropium [place] 1 PUF DAILY 02/16 1000 AC 02/18 INH 0956 Vitamin E 400 IU DAILY 02/16 1000 AC 02/18 PO 0957 Results Last 48 Hrs of Labs/Mics: Laboratory Tests 02/18/17 0720: Anion Gap 9, Estimated GFR > 60, BUN/Creatinine Ratio 23.8, CBC w Diff MAN DIFF ORDERED, RBC 3.21 L, MCV 91.1, MCH 29.0, RDW 19.8 H, MPV 6.1 L, Gran % 80.7 H, Lymphocytes % 8.8 L, Monocytes % 6.9, Eosinophils % 3.5, Basophils % 0.1, Absolute Granulocytes 9.3 H, Absolute Lymphocytes 1.0 L, Absolute Monocytes 0.8 H, Absolute Eosinophils 0.4, Absolute Basophils 0, Platelet Estimate VERIFIED BY SMEAR, Polychromasia 1+, Poikilocytosis 1+, Anisocytosis 1+, Ovalocytes 1+, Stomatocytes 1+, PUBS MCHC 31.8 L 02/17/17 0610: Anion Gap 7, Estimated GFR > 60, BUN/Creatinine Ratio 21.3, CBC w Diff NO MAN DIFF REQ, RBC 2.93 L, MCV 90.7, MCH 29.1, RDW 20.5 H, MPV 6.1 L, Gran % 78.4 H, Lymphocytes % 10.8 L, Monocytes % 8.1, Eosinophils % 2.7, Basophils % 0 L, Absolute Granulocytes 8.0 H, Absolute Lymphocytes 1.1 L, Absolute Monocytes 0.8 H, Absolute Eosinophils 0.3, Absolute Basophils 0, PUBS MCHC 32.1 L Assessment/Plan Assessment/Plan Assessment: 1. Atrial fibrillation-at the present time, I do not believe there is any simple straightforward answer to the proposed question. Clearly, the patient has ongoing low-level GI blood loss from an unknown site. Her workup has not been revealing to this point but is ongoing. The patient, does have ongoing issues with atrial fibrillation and an elevated stroke risk with a CHADSVAS score of at least 4. Overall, I would suggest that the risk of potential stroke always the risk of ongoing low-level bleeding and transfusion requirement. The patient appears to agree with this. 2. Chronic anemia 3. Low-level ongoing GI bleeding 4. COPD 5. Hypertension Recommendation: -The appears to be stable today for discharge from a cardiac standpoint. -I discussed the situation at length with the medical team and the patient. I believe that it would be worthwhile to start the patient back on her oral anticoagulation with monitoring of her CBCs at the present time. She seems to be tolerating the restarted anticoagulation for now. -Outpatient pill cam to be scheduled -The patient will follow-up closely with GI and cardiology as an outpatient. -It came to my attention today that the patient has been receiving amiodarone 400 mg 3 times daily. As far as I can tell she has received this dose for approximately 3 weeks. At discharge, the patient can be safely decreased to 200 mg daily. She will follow-up with Dr. Naranjo as outpatient to make any further changes. Continue telemetry? No
--- NOTE | 2017-02-18 19:21 | Discharge Summary ---
Visit Information Visit Dates Admission Date: 02/16/17 Discharge Date: 02/18/17 Hospital Course Course Attending Physician: ASIA TAI MD Primary Care Physician: DEDE MARION MD Other Care Providers: dr.pearson cobb Consulting Request: 1 Consulting Specialty: Cardiology Consulting Request: 2 Consulting Specialty: Gastroenterology Hospital Course: 67-year-old female with PMH of COPD, atrial fibrillation on xarelto, HTN, HLD, anxiety, depression, hypothyroidism, fibromyalgia, iron deficiency anemia, was brought in from pulmonary rehab for PRBC transfusion for symptomatic anemia. Her h/h on presentation was 6.4/20.3. On February 13, hg was 7, and on February 05, it was 8.5. She feels exahusted and run down at the time of presentation. Vitals at the time of admission-98, 105, 15, 137/77, saturating at 100% on room air Pertinent labs on admission WBC 13.8, hemoglobin 6.4 and hematocrit 20.3, platelets 476 BUN 23 CXR The lungs are well expanded. Patchy left basilar opacity. No edema or effusion. No pneumothorax. The cardiomediastinal silhouette is within normal limits of size, with a calcified aorta. IMPRESSION: Increased patchy left basilar opacity may represent atelectasis or pneumonia. Symptomatic anemia Patient has past medical history significant for iron deficiency anemia, was brought in from pulmonary rehab for PRBC transfusion for symptomatic anemia. Her h/h on presentation was 6.4/20.3. On February 13, hg was 7, and on February 05, it was 8.5. Patient has had anemia and has been following up with Dr. Woods and Dr. Steiner. she has iron deficiency anemia secondary to small bowel AVMs for which she recently underwent a double balloon enterosocopy with cautery of 5 AVMs and unimpressive colonoscopy findings. She is supposed to follow up with Dr. Steiner in March. She has had guaiac positive stool in the past and has hemorrhoids. She denies bright red blood recently, but guaiac done in the ED was positive. She is on iron supplement, hence her stool has always been black in color. Patient reports history of transfusion in the past, which was complicated of heart failure requiring intubation. she was Admitted to general medicine floor for further management of symptomatic anemia. Monitored vitals closely every shift and Maintained oxygen saturation ABOVE 90%. we Provided supplemental oxygen. she Received 2 units of PRBC transfusion. Hemoglobin improved 8.5 from 6.4. Repeat hemoglobin is stable at the time of discharge. Gastro was consulted. she was advised to follow-up with mds nurse after discharge. Atrial fibrillation Of note, patient was on eliquis in the past for atrial fibrillation, she reverted back to NSR for about 5 months, hence eliquis discontinued. Post endoscopy/colonoscopy on january 21, she went back into atrial fibrillation and was complaining of cough with yellow/grayish sputum. She was admitted to the hospital with pneumonia and was started on xarelto. She was discharged to pulmonary rehab on prednisone (almost at the end of her taper) and ciprofloxacin for 2 weeks. She continues to have cough productive of yellow sputum. Completed ciprofloxacin and prednisone taper. She usually takes amiodarone 400 mg thrice a day. However cinder pitman recommended 200 mg every day and follow-up with Dr. Naranjo cinder pitman. We continued her home dose of Cardizem. Xarelto was continued at the time of discharge. xaralto on hold in the hospital because of anemia. Recently treated pneumonia CXR reveals increased patchy left basilar opacity, which could be atelectasis vs pna. We watched her off antibiotics for now. She completed 2 week course of ciprofloxacin before coming to the hospital. Completed prednisone taper. Bilateral leg swelling She also noted bilateral leg swelling over the past week, that has significantly improved on the day of admission. Probnp 1570 without obvious chf symptoms. continued home dose of Lasix 40 mg twice a day and Continued K-Dur tablets COPD She received Total respiratory care. She was given home nebulizer and inhaler treatments. We continued albuterol, Symbicort, spleen, perivaginal, montelukast. Provided supplemental oxygen. hypertension Continued home dose of losartan Hypothyroidism Continued home dose of Synthyroid GERD Continued omeprazole Anxiety Continued Xanax 0.5 mg daily Depression Continued sertraline and bupropion Constipation Continued bowel regimen when necessary Hyperlipidemia Continued Lipitor Chronic shoulder pain She has chronic shoulder pain, for which she takes dilaudid. At baseline, she was constipated. Dilaudid 2 mg q4p severe pain, roxicodone 5mg q6p moderate pain, tylenol 650 q6p mild Thrush magic mouth wash Diet: Heart healthy DVT ppx: mech, no pharm due to symptomatic anemia FULL CODE Complications: none Allergies: Coded Allergies: menotropins (HIVES FROM PERGONAL 11/15/15) apixaban (HEMATOMA TO HIP 02/02/17) Significant Procedures: none Pertinent Lab Results: cxr FINDINGS: The lungs are well expanded. Patchy left basilar opacity. No edema or effusion. No pneumothorax. The cardiomediastinal silhouette is within normal limits of size, with a calcified aorta. IMPRESSION: Increased patchy left basilar opacity may represent atelectasis or pneumonia. Disposition Summary Disposition Principal Diagnosis: # Symptomatic anemia Additional Diagnosis: Recently treated pneumonia Discharge Disposition: home or self care Discharge Instructions General Discharge Information Code Status: Full Code Patient's Diet: as Tolerated Patient's Activity: As tolerated Follow-Up Instructions/Appts: Follow-up with your primary care doctor in 1-2 weeks Please follow-up with your mds nurse Dr. shabazz 1-2 weeks Please follow-up with your cinder pitman Dr. Naranjo in 1-2 weeks Medications at Discharge Discharge Medications: Stop taking the following medications: Ciprofloxacin HCl (Ciprofloxacin HCl) 250 MG TABLET ORAL TWICE DAILY Qty = 7 [Cordarone] ORAL THREE TIMES DAILY Days = 30 Prednisone (Prednisone) 10 MG TABLET ORAL DAILY Qty = 30 Continue taking these medications: Levothyroxine Sodium (Levothyroxine Sodium) 100 MCG TABLET 1 Tablet ORAL DAILY BEFORE BREAKFAST Comments: LAST GIVEN 02/18/17 @ 0600 Sertraline HCl (Zoloft) 100 MG TABLET 2 Tablet ORAL DAILY Comments: LAST GIVEN 02/18/17 @ 1000 Ezetimibe (Zetia) 10 MG TABLET 1 Tablet ORAL DAILY Comments: LAST GIVEN 02/18/17 @ 1000 Bupropion HCl (Bupropion HCl Sr) 150 MG TABLET.ER 1 Tablet ORAL Every Morning Comments: LAST GIVEN 02/18/17 @ 1000 Ferrous Sulfate (Ferrous Sulfate) 325 MG (65 MG IRON) TABLET 1 Tablet ORAL DAILY Comments: LAST GIVEN 02/18/17 @ 1000 Pravastatin Sodium (Pravachol) 40 MG TABLET 1 Tablet ORAL Every night Comments: LAST GIVEN 02/17/17 @ 1700 Docusate Sodium (Colace) 100 MG CAPSULE 2 Capsule ORAL Every night Comments: LAST GIVEN 02/17/17 @ 2200 Roflumilast (Daliresp) 500 MCG TABLET 1 Tablet ORAL DAILY Comments: Last Taken: 02/05 Time: 0939 [place]-3 Fatty Acids/Fish Oil (Fish Oil 1,000 MG Capsule) 340 MG-1,000 MG CAPSULE 2 Capsule ORAL DAILY Comments: LAST GIVEN 02/18/17 @ 1000 Montelukast Sodium (Montelukast Sodium) 10 MG TABLET 1 Tablet ORAL DAILY Comments: LAST GIVEN 02/18/17 @ 1000 Folic Acid (Folic Acid) 1 MG TABLET 1 Tablet ORAL DAILY Comments: LAST GIVEN 02/18/17 @ 1000 Vitamin E (Dl,Tocopheryl Acet) (Vitamin E) 400 UNIT CAPSULE 1 Tablet ORAL DAILY Comments: LAST GIVEN 02/18/17 @ 1000 Ascorbic Acid (Vitamin C) 500 MG CAPSULE.ER 1 Capsule ORAL DAILY Comments: LAST GIVEN 02/18/17 @ 1000 Calcium Carbonate/Vitamin D3 (Caltrate 600 + D Tablet) 1 EACH TABLET 1 Tablet ORAL DAILY Comments: LAST GIVEN 02/18 17 @ 1000 Cholecalciferol (Vitamin D3) (Vitamin D3) 400 UNIT TABLET 1 Tablet ORAL DAILY Comments: LAST GIVEN 02/18/17 @ 1000 Furosemide (Lasix) 40 MG TABLET 1 Tablet ORAL TWICE DAILY Comments: LAST GIVEN 02/18/17 @ 1000 Budesonide (Pulmicort) 0.5 MG/2 ML AMPUL.NEB 1 Vial Inhale Solution TWICE DAILY Comments: Last Taken: 02/05 Time: 0846 Guaifenesin (Mucinex) 600 MG TAB.ER.12H 1 Tablet ORAL DAILY Comments: LAST GIVEN 02/18/17 @ 1000 Alprazolam (Alprazolam) 0.5 MG TABLET 1 Tablet ORAL DAILY Comments: LAST GIVEN 02/18/17 @ 1000 Potassium Chloride (Potassium Chloride) 20 MEQ TAB.ER.PRT 1 Tablet ORAL DAILY Qty = 30 Comments: LAST GIVEN 02/18/17 @ 1000 Tiotropium [place] (Spiriva) 18 MCG CAP.W.DEV 1 Capsule Inhale through mouth DAILY Qty = 3 Instructions: Reason to Stop at ADM:TRC NEBS ORDERS Comments: LAST GIVEN 02/18/17 @ 1000 Fluticasone/Salmeterol (Advair 250-50 Diskus) 250 MCG-50 MCG/DOSE BLST.W.DEV 1 Puff Inhale through mouth TWICE DAILY Comments: NOT GIVEN IN HOSPITAL Albuterol Sulfate (Albuterol Sulfate) 2.5 MG/3 ML (0.083 %) VIAL.NEB 1 Vial Inhale Solution as needed for RESPIRATORY Comments: Last Taken: 02/05 Time: 0846 Arformoterol Tartrate (Brovana) 15 MCG/2 ML VIAL.NEB 1 VIAL Inhale through mouth DAILY Comments: LAST GIVEN 02/18/17 @ 0800 Losartan Potassium (Losartan Potassium) 50 MG TABLET 1 Tablet ORAL DAILY Qty = 90 Comments: LAST GIVEN 02/18/17 @ 1000 Nitroglycerin (Nitro-Dur) 0.6 MG/HOUR PATCH.TD24 1 PATCH On the skin DAILY Comments: LAST GIVEN 02/18/17 @ 1000 Omeprazole (Omeprazole) 40 MG CAPSULE.DR 1 Capsule ORAL DAILY Comments: LAST GIVEN 02/18/17 @ 0600 Acetaminophen (Arthritis Pain Reliever) 650 MG TABLET.ER 2 Tablet ORAL as needed for PAIN Comments: NOT GIVEN Diltiazem HCl (Diltiazem ER) 180 MG CAPSULE.ER 1 Tablet ORAL DAILY Days = 28 Comments: LAST GIVEN 02/18/17 @ 1000 Hydromorphone HCl (Hydromorphone HCl) 2 MG TABLET 2 Milligram ORAL EVERY 4 HOURS NEEDED as needed for PAIN SCALE 7-10 ( SEVERE) Days = 10 Comments: LAST GIVEN 02/18/17 @ 1000 Sucralfate (Sucralfate) 1 GRAM/10 ML ORAL.SUSP 1 Gram ORAL THREE TIMES DAILY Days = 30 Comments: Last Taken: 02/05 Time: 1600 Rivaroxaban (Xarelto) 10 MG TABLET 20 Milligram ORAL 5 PM Days = 30 Instructions: please follow with [facility]ilogy as an out patinet to refill this medication Comments: LAST GIVEN 02/17/17 @ 1700 This prescription has been renewed Start taking the following new medications: Melatonin (Melatonin) 5 MG TABLET 5 Milligram ORAL AT BEDTIME Qty = 10 No Refills Amiodarone HCl (Amiodarone HCl) 200 MG TABLET 1 Tablet ORAL DAILY Qty = 30 No Refills Comments: LAST GIVEN 02/18/17 @ 1000 Copies To: SANAM ETIENNE,DEDE Castro
== END 2017-02-18 14:30 | DRG 812 ==
LOC: ERH 13:54 → ERHI 19:21 → ENRESERV 20:34 → ENTRNSPT 21:34 → 2NB 21:51 → CMPTRNSPT 22:36 → 2NB 02-16 11:31 → ENPENDDIS 02-18 10:35 → 2NB 02-18 14:30
PROVIDERS: Emergency Medicine; Internal Medicine; ADMIT Student in an Organized Health Care Education/Training Program
DX: D50.9 Iron deficiency anemia, unspecified (principal); I48.91 Unspecified atrial fibrillation; J44.9 Chronic obstructive pulmonary disease, unspecified; B37.9 Candidiasis, unspecified; E03.9 Hypothyroidism, unspecified; F41.8 Other specified anxiety disorders; E78.5 Hyperlipidemia, unspecified; I25.2 Old myocardial infarction; Z79.01 Long term (current) use of anticoagulants; K21.9 Gastro-esophageal reflux disease without esophagitis; M79.7 Fibromyalgia; K58.1 Irritable bowel syndrome with constipation; I25.10 Atherosclerotic heart disease of native coronary artery without angina pectoris; Z85.828 Personal history of other malignant neoplasm of skin; Z87.891 Personal history of nicotine dependence; R22.43 Localized swelling, mass and lump, lower limb, bilateral
CPT/HCPCS: 2NBP; 6040; 36415; 82436; 86920; 93005; 93010; G0378; J1940; J3490; J7512; J7605; P9016

== ENCOUNTER 2017-03-02 17:04 | Inpatient (IN) | payer OTHER, MEDICARE ==
[~2017-03-02] VITALS: Ht 157.5 cm; Wt 52.2 kg
[~2017-03-02 17:04] MED LIST changes: +AMIODARONE HCL200 M1 PO; +MELATONIN5 M7 PO
--- NOTE | 2017-03-02 17:07 | NUR ---
PT TO TRIAGE WITH C/O CONGESTION, COUTH PRODUCTIVE OF YELLOW SPUTUM, SOB x1WEEK. PT CURRENTLY ON SOLUMEDROL SINCE SATURDAY. HX COPD, AFIB,RI,HTN. PT USE O2 NC 2L, O2SAT 94% ON 2L O2. PT DENIES CHEST PAIN,ABD PAIN,NVD,URINARY S/S.
--- NOTE | 2017-03-02 17:20 | NUR ---
PT AMBULTED TO ER ROOM 1. STATES SHE HAS HAD A PRODUCTIVE COUGH WITH INCREASING SOB. STATES SHE GAINED 3LBS OVERNIGHT. NO SWELLING NOTED TO LOWER EXTREMTIIES. WHEEZES NOTED THROUGHOUT LUNG NORTH.
[2017-03-02] MEDS ORDERED: XARELTO20 M2 PO (17:25)
--- NOTE | 2017-03-02 17:27 | ED DYSPNEA/ASTHMA COMPLAINT ---
"History of Present Illness General Chief Complaint: General Adult Stated Complaint: CONGESTION Source: patient, old records Exam Limitations: no limitations Vital Signs & Intake/Output Vital Signs & Intake/Output Vital Signs Date Time Temp Pulse Resp B/P B/P Pulse O2 O2 Flow FiO2 Mean Ox Delivery Rate 03/02 1732 95 Nasal 2.0L Cannula 03/02 1712 99.4 124 22 126/68 94 Nasal 2.0L Cannula Allergies Coded Allergies: menotropins (HIVES FROM PERGONAL 11/15/15) apixaban (HEMATOMA TO HIP 02/02/17) Reconcile Medications Acetaminophen (Arthritis Pain Reliever) 650 MG TABLET.ER 2 TAB PO PRN PAIN ( Reported) Albuterol Sulfate 2.5 MG/3 ML (0.083 %) VIAL.NEB 1 Vial INH/DANIKA 4XDAILY PRN RESPIRATORY (Reported) Alprazolam 0.5 MG TABLET 1 TAB PO BID ANXIETY (Reported) Amiodarone HCl 200 MG TABLET 1 TAB PO DAILY ARRYTHMIA Arformoterol Tartrate (Brovana) 15 MCG/2 ML VIAL.NEB 1 VIAL INH DAILY RESPIRATORY (Reported) Ascorbic Acid (C-1000) 1,000 MG TABLET 1 TAB PO DAILY SUPPLEMENT (Reported) Budesonide (Pulmicort) 0.5 MG/2 ML AMPUL.NEB 1 Vial INH/DANIKA BID COPD ( Reported) Bupropion HCl (Bupropion HCl Sr) 150 MG TABLET.ER 1 TAB PO QAM DEPRESSION ( Reported) Calcium Carbonate/Vitamin D3 (Caltrate 600 + D Tablet) 1 EACH TABLET 2 TAB PO DAILY SUPPLEMENT (Reported) Cholecalciferol (Vitamin D3) (Vitamin D3) 400 UNIT TABLET 1 TAB PO DAILY SUPPLEMENT (Reported) Cyanocobalamin (Vitamin B-12) (B-12) (Unknown Strength) TABLET (Unknown Dose) PO DAILY SUPPLEMENT (Reported) Dicyclomine HCl 10 MG CAPSULE 1 CAP PO TID ABD CRAMPING (Reported) Diltiazem HCl (Diltiazem ER) 180 MG CAPSULE.ER 1 TAB PO DAILY heart rate ( Reported) Docusate Sodium (Colace) 100 MG CAPSULE 2 CAP PO QPM STOOL SOFTENER (Reported ) Ezetimibe (Zetia) 10 MG TABLET 1 TAB PO DAILY CHOLESTEROL (Reported) Ferrous Sulfate 325 MG (65 MG IRON) TABLET 1 TAB PO TID SUPPLEMENT (Reported) Fluticasone/Salmeterol (Advair 250-50 Diskus) 250 MCG-50 MCG/DOSE BLST.W.DEV 1 PUF INH BID BREATHING PROBLEMS (Reported) Folic Acid 1 MG TABLET 1 TAB PO DAILY SUPPLEMENT (Reported) Furosemide (Lasix) 40 MG TABLET 1 TAB PO BID WATER PILL (Reported) Guaifenesin (Mucinex) 600 MG TAB.ER.12H 1 TAB PO DAILY EXPECTORANT (Reported) Levothyroxine Sodium 100 MCG TABLET 1 TAB PO DAILY AC THYROID (Reported) Losartan Potassium 50 MG TABLET 1 TAB PO DAILY BP (Reported) Montelukast Sodium 10 MG TABLET 1 TAB PO DAILY COPD (Reported) Nitroglycerin (Nitro-Dur) 0.6 MG/HOUR PATCH.TD24 1 PATCH TOP DAILY HEART ( Reported) [place]-3 Fatty Acids/Fish Oil (Fish Oil 1,200 MG Softgel) 360 MG-1,200 MG CAPSULE.DR 1 CAP PO DAILY SUPPLEMENT (Reported) Omeprazole 40 MG CAPSULE.DR 1 CAP PO DAILY GI (Reported) Potassium Chloride 20 MEQ TAB.ER.PRT 1 TAB PO DAILY SUPPLEMENT (Reported) Pravastatin Sodium (Pravachol) 40 MG TABLET 1 TAB PO QPM CHOLESTEROL ( Reported) Rivaroxaban (Xarelto) 20 MG TABLET 1 TAB PO DAILY BLOOD THINNER (Reported) with food Roflumilast (Daliresp) 500 MCG TABLET 1 TAB PO DAILY COPD (Reported) Sertraline HCl (Zoloft) 100 MG TABLET 2 TAB PO DAILY DEPRESSION (Reported) Sucralfate 1 GRAM/10 ML ORAL.SUSP 1 GM PO TID THROAT PAIN Tiotropium [place] (Spiriva) 18 MCG CAP.W.DEV 1 CAP INH DAILY copd Reason to Stop at ADM:[facility] NEBS ORDERS Vitamin E (Dl,Tocopheryl Acet) (Vitamin E) 400 UNIT CAPSULE 1 TAB PO DAILY SUPPLEMENT (Reported) Triage Note: PT TO TRIAGE WITH C/O CONGESTION, COUTH PRODUCTIVE OF YELLOW SPUTUM, SOB x1WEEK. PT CURRENTLY ON SOLUMEDROL SINCE SATURDAY. HX COPD, AFIB,FL,HTN. PT USE O2 NC 2L, O2SAT 94% ON 2L O2. PT DENIES CHEST PAIN,ABD PAIN,NVD,URINARY S/S. Triage Nurses Notes Reviewed? yes HPI: Patient presents with increasing shortness of breath, nonproductive cough, dyspnea on exertion and a 10 pound weight gain since yesterday. Patient denies any chest pain or chest tightness. Positive fatigue. Positive chills. Patient feels that she is back in atrial fibrillation. Patient is on blood thinners. Patient had a recent admission for pneumonia. Positive anorexia. Patient states that she is at these nebulizers 3 times today. Patient also states that her temperature normally runs at 97.2 so the temperature 99.4 is quite high for her. Patient denies any orthopnea. Positive dyspnea on exertion. Patient also states that she fell out of bed this morning and landed on her left elbow. Her elbow was bruised but it is getting better. She denies hitting her head and there was no loss of consciousness. She denies any headache or blurry vision. There is no nausea or vomiting. Past History Travel History Traveled to [place] past 21 day No Medical History Any Pertinent Medical History? see below for history Neurological: meningitis (viral in 2008) EENT: cataracts (on right with IOL), hearing loss Cardiovascular: AFIB, CAD (s/p [place]), hypertension, hyperlipidemia, [place] BLOCKED ARTERY atrial fibrillation PHARMACEUTICAL CONVERSION WITH TIKOSYN Respiratory: COPD, pneumonia, 2L N/C O2 PRN Gastrointestinal: GERD, irritable bowel syndrome, ULCERATIVE COLITIS Hepatic: NONE Renal: NONE Musculoskeletal: fibromyalgia, osteoarthritis Psychiatric: anxiety, depression, PTSD fibromyalgia Endocrine: hypothyroidism Blood Disorders: anemia Cancer(s): SKIN CA (skin cancer) REED MAN/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: NONE Other Medical Hx: Irritable bowel syndrome viral meningitis [id number] hypothyroidism right cataract extraction with IOL implant depression arthritis HTN (HYPERTENSION) (401.9 | I10) CAD s/p [place] COPD tonsillectomy GERD discoid lupus Pneumonia miscarriage in 1990 appendectomy ulcerative colitis eczema surgical repair of hiatal hernia skin cancer Atrial Fibrillation History of MRSA: No History of VRE: No History of CDIFF: No Tetanus Vaccine: 02/07/16 Surgical History Surgical History: appendectomy, surgical repair of hiatal hernia tonsillectomy Psychosocial History Who do you live with Patient/Self Services at Home Oxygen What is your primary language [place] Tobacco Use: Quit >30 days ago ETOH Use: denies use Illicit Drug Use: denies illicit drug use Family History Family History, If Any: MOTHER FH: COPD (chronic obstructive pulmonary disease) FH: heart disease FATHER Alzheimer's disease Hx Contributory? No Review of Systems Review of Systems Constitutional: Reports: see HPI, chills. EENTM: Reports: no symptoms. Respiratory: Reports: see HPI, cough, short of breath, wheezing. Cardiovascular: Reports: no symptoms. GI: Reports: no symptoms. Genitourinary: Reports: no symptoms. Musculoskeletal: Reports: no symptoms. Skin: Reports: no symptoms. Neurological/Psychological: Reports: no symptoms. Hematologic/Endocrine: Reports: no symptoms. Immunologic/Allergic: Reports: no symptoms. All Other Systems: Reviewed and Negative Physical Exam Physical Exam General Appearance: well developed/nourished, alert, awake, mild distress Head: atraumatic, normal appearance Eyes: Bilateral: PERRL, EOMI. Ears, Nose, Throat: normal pharynx, normal ENT inspection, hearing grossly normal Neck: normal inspection, supple, full range of motion, NO JVD Respiratory: no respiratory distress, rhonchi, wheezing Cardiovascular: normal peripheral pulses, irregularly irregular Gastrointestinal: normal bowel sounds, soft, non-tender, no organomegaly Extremities: normal capillary refill, normal range of motion, no edema, ECCHYMOSIS TO LEFT DISTAL HUMERAL AREA. Neurologic/Psych: no motor/sensory deficits, awake, alert, oriented x 3, normal mood/affect Skin: intact, normal color, warm/dry Lymphatic: no anterior cervical tor Core Measures ACS in differential dx? No Severe Sepsis Present: No Septic Shock Present: No Progress Differential Diagnosis: bronchitis, CHF, COPD, pneumonia, pneumothorax Plan of Care: Orders Procedure Date/time Status LACTIC ACID 03/[address] in observation 03/02 1852 Active Add-on Test (ER Only) 03/02 1825 Active LEUKOCYTE POOR (PACKED CELLS) 03/02 1825 Active TYPE & SCREEN (NOT X-MATCH) 03/02 1803 Active Telemetry/Tower Director 03/02 1724 Active BLOOD CULTURE 03/02 1724 Active TROPONIN LEVEL 03/02 1724 Complete LACTIC ACID 03/02 1724 Complete COMPREHENSIVE METABOLIC PANEL 03/02 1724 Complete CBC WITHOUT DIFFERENTIAL 03/02 1724 Complete B-TYPE NATRIURETIC PEP (BNP) 03/02 1724 Complete EKG 03/02 1724 Active Current Medications Sig/Lana Start time Last Medication Dose Stop Time Status Admin Azithromycin 500 MG ONCE ONE 03/02 1830 AC (Zithromax) 03/02 1929 Sodium Chloride 250 ML (Normal Saline 0.9%) Laboratory Tests 03/02/171802: Anion Gap 11, Estimated GFR > 60, BUN/Creatinine Ratio 25.0, Glucose 88, Lactic Acid 0.7, Calcium 9.3, Total Bilirubin 0.2, AST 26, ALT 58 H, Alkaline Phosphatase 72, Troponin I < 0.01, [id number] Pept 850 H, Total Protein 5.7 L, Albumin 3.4 L, Globulin 2.3, Albumin/Globulin Ratio 1.5, CBC w Diff NO MAN DIFF REQ, RBC 2.74 L, MCV 90.4, MCH 28.8, RDW 17.0 H, MPV 6.3 L, Gran % 77.9 H, Lymphocytes % 7.8 L, Monocytes % 10.3 H, Eosinophils % 3.2, Basophils % 0.8, Absolute Granulocytes 10.6 H, Absolute Lymphocytes 1.1 L, Absolute Monocytes 1.4 H, Absolute Eosinophils 0.4, Absolute Basophils 0.1, PUBS MCHC 31.9 L Microbiology 03/02 1803 BLOOD: Blood Culture - RECD 03/02 1724 BLOOD: Blood Culture - ORD Diagnostic Imaging: Viewed by Me: Radiology Read. Discussed w/RAD: Radiology Read. CXR Impression: PATIENT: STEPH LEOS PRESENT AGE: 67 PATIENT ACCOUNT NO: [id number] : 50 LOCATION: [facility] ORDERING PHYSICIAN: LINDA BORJA MD SERVICE DATE: 03/02/17 EXAM TYPE: RAD - XRY- PORTABLE CHEST XRAY EXAMINATION: XR PORTABLE CHEST CLINICAL INFORMATION: 67-year -old woman with pneumonia and pulmonary edema. COMPARISON: 01/26/2017 chest radiograph TECHNIQUE: Portable frontal view of the chest was obtained. FINDINGS: The lungs remain relatively well expanded. Reticular opacities at the left lung base are unchanged and presumably chronic. No focal airspace consolidation or overt pulmonary edema is identified. Heart size is within the range of normal. There are no large pleural effusions. IMPRESSION: No convincing radiographic evidence of an acute cardiopulmonary process. DICTATED BY: CHIKA MALDONADO MD DATE/ TIME DICTATED:03/02/171817 PICTURE ENLARGER:PAPO DATE/TIME TRANSCRIBED: 03/02/171817 CONFIDENTIAL, DO NOT COPY WITHOUT APPROPRIATE AUTHORIZATION. < Electronically signed in Other Vendor System> SIGNED BY: CHIKA MALDONADO MD 07/09 1822 Initial ED EKG: AFIB (WITH RVR), nonspecific ST T wave chg Prior EKG: unchanged Departure Departure Disposition: STILL A PATIENT Condition: Stable Clinical Impression Primary Impression: COPD exacerbation Secondary Impressions: Anemia Referrals: DEDE MARION MD (PCP/Family) Departure Forms: Customer Survey General Discharge Information Observation Note Spoke With: ABIDA ETIENNE,BIRGITNacho Physician Advisor Notified: JONH ETIENNE,LINDA Romo Place Patient In: Non-ED OBS Care Area Rationale for Observation: My rational for observation is as follows [IV antibiotics, IV steroids, pulmonary consultation, transfusion, nebulizers]. Critical Care Note Critical Care Note Critical Care Time: non-applicable"
[2017-03-02] MEDS ORDERED: DICYCLOMINE HCL10 M1 PO (17:32)
[2017-03-02] MEDS ORDERED: FISH OIL 1,2001 EAC1 PO (17:35)
[2017-03-02] MEDS ORDERED: B-121000 MC3 PO (17:36)
[2017-03-02] MEDS ORDERED: C-10001000 MG PO (17:37)
[2017-03-02 18:17] LABS: ABSOLUTE BASOPHIL COUNT 0.1 /CUMM (0.0-0.2); ABSOLUTE EOSINOPHIL COUNT 0.4 /CUMM (0.0-0.7); ABSOLUTE GRANULOCYTE CT 10.6 /CUMM (1.4-6.5); ABSOLUTE LYMPH COUNT 1.1 /CUMM (1.2-3.4); ABSOLUTE MONOCYTE COUNT 1.4 /CUMM (0.10-0.60); BASOPHIL % 0.8 % (0.0-2.0); EOSINOPHIL % 3.2 % (0-5); GRANULOCYTE % 77.9 % (42.2-75.2); MEAN CORPUSCULAR HGB 28.8 PG (27.0-31.0); MEAN CORPUSCULAR HGB CONC 31.9 G/DL (33.0-37.0); MEAN CORPUSCULAR VOLUME 90.4 FL (81.0-99.0); MEAN PLATELET VOLUME 6.3 FL (7.4-10.4); PLATELET COUNT 805 /CUMM (130-400); RED BLOOD CELL CT 2.74 /CUMM (4.20-5.40); WHITE BLOOD CELL COUNT 13.6 /CUMM (4.8-10.8)
[2017-03-02 18:18] LABS: HEMATOCRIT 24.8 % (37-47)
--- NOTE | 2017-03-02 18:22 | RADIOLOGY REPORT ---
EXAMINATION: XR PORTABLE CHEST CLINICAL INFORMATION: 67-year-old woman with pneumonia and pulmonary edema. COMPARISON: 01/26/2017 chest radiograph TECHNIQUE: Portable frontal view of the chest was obtained. FINDINGS: The lungs remain relatively well expanded. Reticular opacities at the left lung base are unchanged and presumably chronic. No focal airspace consolidation or overt pulmonary edema is identified. Heart size is within the range of normal. There are no large pleural effusions. IMPRESSION: No convincing radiographic evidence of an acute cardiopulmonary process.
--- NOTE | 2017-03-02 18:40 | NUR ---
PT MEDICATED WITH SOLUMEDROL PER ORDER AT THIS TIME
--- NOTE | 2017-03-02 18:41 | RADIOLOGY REPORT ---
EXAMINATION: XR ELBOW, LEFT CLINICAL INFORMATION: Left elbow pain following fall. COMPARISON: None. TECHNIQUE: AP, lateral, and oblique views of the left elbow. FINDINGS: The bones and soft tissues appear unremarkable. No acute fracture of the left elbow is identified. Alignment is anatomic. IMPRESSION: No acute fracture or dislocation of the left elbow.
--- NOTE | 2017-03-02 18:49 | NUR ---
MULTIPLE ATTEMPTS TRIED FOR SECOND IV AND SECOND SET OF BLOOD CULTURES WITHOUT SUCCESS. COMPUTER SPECIALIST AWARE AND TO ATTEMPT IV
--- NOTE | 2017-03-02 19:30 | NUR ---
SECOND IV EST #20 IN RIGHT HAND BY RN SARAH
--- NOTE | 2017-03-02 19:53 | NUR ---
TRISHA LEVINE AT BEDSIDE FOR SECOND SET OF BLOOD CULTURE COLLECTION
--- NOTE | 2017-03-02 19:53 | NUR ---
HOUSE STAFF AT BEDSIDE, PER ONLY ONE UNIT OF LEUKOCYTE POOR BLOOD PRODUCT TO BE INUFSED NOW, LAB CALLED AND TOLD ABOUT CHANGE TO PICKUP ORDER
--- NOTE | 2017-03-02 19:54 | NUR ---
PT BED ASSIGNMENT 219-1
--- NOTE | 2017-03-02 20:04 | NUR ---
PT MEDICATED WITH 1G OF FORTAZ PER EMAR
--- NOTE | 2017-03-02 20:08 | NUR ---
REPORT GIVEN TO KERLINE MICHELLE
--- NOTE | 2017-03-02 20:11 | NUR ---
TRANSPORT BOOKED FOR DISTRIBUTION, PT MEDICATED WITH 40MG LASIX AND 650MG TYLENOL PER EMAR
--- NOTE | 2017-03-02 20:12 | History & Physical ---
DERICK ETIENNE,[facility] [place] 03/02/172010: General Information and HPI MD Statement: I have seen and personally examined STEPH ESCOBAR and documented this H&P. The patient is a 67 year old F who presented with a patient stated chief complaint of shortness of breath. Source of Information: patient, old records Exam Limitations: no limitations History of Present Illness: Ms. Escobar is a 67 y/o F with PMHx of atrial fibrillation s/p cardioversion on Xarelto, severe COPD on 2 L home oxygen and iron deficiency anemia secondary to small bowel AVMs who presents with worsening SOB and productive cough with yellow sputum of several days duration. Patient reports that for the past 4-5 days leading up to current presentation she has been feeling very congested and coughing up thick yellowish sputum. She also had rhinorrhea during this time. Yesterday she developed SOB and felt like she could not breathe and had to increase her home oxygen to 3 L. She endorses PND as well as worsening orthopnea and reports using 2 pillows instead of her baseline of 1 last night. She checked her temperature at home and it was approximately 99 which is high for her as her normal temperature is around 97.4. She denies leg swelling. Patient endorses palpitations which have been ongoing for the past month since reverting to atrial fibrillation. ROS is also positive for nausea, abdominal pain, hip and shoulder pain due to fibromyalgia and right knee pain from osteoarthritis. Patient has had multiple admissions to [facility] within the past year for COPD exacerbation. Most recent admission (02/14-02/18) was for symptomatic iron deficiency anemia requiring blood transfusion, which had been extensively worked up by criminal justice lawyer Dr. Pandya and operator Dr. Woods in the past. It was felt to be secondary to small bowel AVMs exacerbated by Xarelto with a recent double balloon enteroscopy revealing 5 AVMs that were recently cauterized. Patient had recently undergone cardioversion by labor contractor Dr. Bahena at [place] with successful conversion to normal sinus rhythm and was subsequently started on dofetilide for rhythm maintenance. She remained in normal sinus rhythm for about 5 months and was taken off anticoagulation with Eliquis. However in January, she reverted back to atrial fibrillation and was started on Xarelto and amiodarone. Patient reports that she was supposed to follow up by Dr. Bahena on 03/04. Allergies/Medications Allergies: Coded Allergies: menotropins (HIVES FROM PERGONAL 11/15/15) apixaban (HEMATOMA TO HIP 02/02/17) Past History Travel History Traveled to [place] past 21 day No Medical History Neurological: meningitis (viral in 2008) EENT: cataracts (on right with IOL), hearing loss Cardiovascular: AFIB, CAD, diastolic CHF, hypertension, hyperlipidemia, myocardial infarction (in 1995) Respiratory: COPD, pneumonia Gastrointestinal: GERD, irritable bowel syndrome, ulcerative colitis, 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, diverticulosis Hepatic: NONE Renal: NONE Musculoskeletal: fibromyalgia, osteoarthritis Psychiatric: anxiety, depression, PTSD Endocrine: hypothyroidism Blood Disorders: anemia Cancer(s): skin cancer 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: miscarriage Other Medical Hx: discoid lupus eczema ulcerative colitis History of MRSA: No History of VRE: No History of CDIFF: No Tetanus Vaccine: 02/07/16 Surgical History Surgical History: appendectomy, hernia repair-hiatal tonsillectomy, tonsillectomy Past Family/Social History Family History Relations & Conditions if any MOTHER FH: CAD (coronary artery disease) FH: COPD (chronic obstructive pulmonary disease) FH: heart disease FATHER Alzheimer's disease BROTHER FH: CAD (coronary artery disease) BROTHER FH: CAD (coronary artery disease) BROTHER FH: CAD (coronary artery disease) Psychosocial History Where do you live? Home Who Do You Live With? child Services at Home: Oxygen Primary Language: Iranian Smoking Status: Former Smoker (40 Pack Yrs, Quit 4 Yrs Ago) ETOH Use: denies use Illicit Drug Use: denies illicit drug use Functional Ability ADLs Independent: dressing, eating, toileting, bathing. Ambulation: independent IADLs Independent: shopping, housework, finances, food prep, telephone, transportation , medication admin. Employment History Employment Retired Review of Systems Review of Systems Constitutional: Reports: chills, fever. EENTM: Reports: see HPI (rhinorrhea). Cardiovascular: Reports: see HPI (chest tightness), palpitations. Denies: peripheral edema. Respiratory: Reports: cough, short of breath, sputum production, wheezing. GI: Reports: abdominal pain, nausea. Denies: vomiting. Genitourinary: Reports: hesitation (chronic). Denies: dysuria. Musculoskeletal: Reports: joint pain. Skin: Reports: no symptoms. Neurological/Psychological: Reports: no symptoms. Hematologic/Endocrine: Reports: no symptoms. Immunologic/Allergic: Reports: no symptoms. All Other Systems: Reviewed and Negative Exam & Diagnostic Data Last 24 Hrs of Vital Signs/I&O Vital Signs Date Time Temp Pulse Resp B/P B/P Pulse O2 O2 Flow FiO2 Mean Ox Delivery Rate 03/02 2105 Nasal 2.0L Cannula 03/02 2035 92 Nasal 2.0L Cannula 03/02 2035 98.4 122 20 130/64 92 Nasal 3.0L Cannula 03/02 2005 97.1 115 20 145/65 98 Nasal 2.0L Cannula 03/02 1732 95 Nasal 2.0L Cannula 03/02 1712 99.4 124 22 126/68 94 Nasal 2.0L Cannula Physical Exam General Appearance Alert, Oriented X3, No Acute Distress Skin No Rashes Skin Temp/Moisture Exam: Warm/Dry HEENT Atraumatic, Mucous Membr. moist/pink Neck Supple, No JVD Cardiovascular Irregularly irregular Lungs Scattered Expiratory Wheezes Distributed Throughout Bilateral Lung Encarnacion, Bibasilar Rhonchi Abdomen Soft, No Tenderness, Positive Bowel Sounds Extremities No Clubbing, No Cyanosis, No Edema Last 24 Hrs of Labs/Wan: Laboratory Tests 03/02/172023: Lactic Acid Cancelled 03/02/171802: Anion Gap 11, Estimated GFR > 60, BUN/Creatinine Ratio 25.0, Glucose 88, Lactic Acid 0.7, Calcium 9.3, Total Bilirubin 0.2, AST 26, ALT 58 H, Alkaline Phosphatase 72, Troponin I < 0.01, Xpt-P-Cjxrknptnip Pept 850 H, Total Protein 5.7 L, Albumin 3.4 L, Globulin 2.3, Albumin/Globulin Ratio 1.5, CBC w Diff NO MAN DIFF REQ, RBC 2.74 L, MCV 90.4, MCH 28.8, RDW 17.0 H, MPV 6.3 L, Gran % 77.9 H, Lymphocytes % 7.8 L, Monocytes % 10.3 H, Eosinophils % 3.2, Basophils % 0.8, Absolute Granulocytes 10.6 H, Absolute Lymphocytes 1.1 L, Absolute Monocytes 1.4 H, Absolute Eosinophils 0.4, Absolute Basophils 0.1, PUBS MCHC 31.9 L Microbiology 03/02 2246 URINE ROUT: Legionella Antigen - ORD 06/10 2246 URINE ROUT: Streptococcus pneumoniae Antigen (M - ORD 03/02 2144 LOWER RESP: Respiratory Culture - ORD 03/02 2144 LOWER RESP: Gram Stain - ORD 03/02 1956 BLOOD: Blood Culture - RECD 03/02 180 BLOOD: Blood Culture - RECD Diagnostic Data EKG Results Atrial fibrillation HR 108 QTc 451 CXR Results No convincing radiographic evidence of an acute cardiopulmonary process. Other Results XR L ELBOW: No acute fracture or dislocation of the left elbow. Assessment/Plan Assessment: Ms. 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 #Acute on chronic hypoxemic respiratory failure: Likely secondary to COPD exacerbation given worsening cough with sputum production and expiratory wheezes on exam although atrial fibrillation and acute on chronic anemia are possible contributing factors. Although CXR is without any focal consolidation, pneumonia is a possibility given low-grade fevers at home and extensive rhonchi on exam. Although patient has history of chronic diastolic CHF, acute exacerbation is unlikely in the absence of JVD, peripheral edema or pulmonary edema on CXR to suggest volume overload and proBNP 850 which is low for patient. 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 No S/p 125 mg of IV Solumedrol and 1 dose of azithromycin and ceftazidime in the ED. * Place under observation in General Medicine. * Pulmonology consult to be placed in the AM. * Check sputum Cx, urinary Strep pneumo and Legionella antigen. * TRC and nebs. * Provide supplemental oxygen to keep SpO2 >92%. * Start Solumedrol 40 mg IV Q8H. * Continue xehdw-gf-mhbkkarzp Spiriva 1 puff daily, Symbicort 2 puffs BID, Mucinex 600 mg PO daily and roflumilast 500 mcg PO daily. * Continue ceftazidime 1 g IV Q8H given history of Pseudomonas in the sputum and azithromycin 500 mg IV daily for possible pneumonia. #Acute on chronic anemia: H/H 7.9/24.8 on admission. Possibly contributing to patient's presenting symptom of shortness of breath. History of iron deficiency anemia felt to be secondary to small bowel AVMs. * Type and crossmatch. * Transfuse 1 unit of pRBCs. * Repeat H/H in the morning and transfuse as needed to keep Hgb >8 in the setting of CAD. * Be careful with transfusions to avoid volume overload given history of diastolic CHF and history of respiratory failure requiring intubation with transfusion in the past. * Continue pzcbk-dp-dqliinxnu folic acid 1 mg PO daily. #Atrial fibrillation: In atrial fibrillation on admission with HR 100s-120s. Has recently reverted to atrial fibrillation in January after being in normal sinus rhythm for about 5 months following DC cardioversion and dofetilide therapy for rhythm maintenance. * Cardiology consult to be placed in the AM. * Continue vaclj-ln-lthfsfrmm Xarelto 20 mg PO daily. * Continue lqfqm-tx-ptdjelsdk amiodarone 200 mg PO daily and diltiazem 180 mg PO daily. #CAD: No evidence of active CAD. EKG with no ST-T changes. Troponin negative. * Continue kdjzq-uy-aikwvosiv nitroglycerin 0.6 mg patch. * Repeat EKG and troponin in the AM. #HTN: * Continue zzaqb-ev-zkfdlgdwy losartan 50 mg PO daily. #HLD: * Continue cxfla-kr-tcbuvmtpb fish oil supplement, ezetimibe 10 mg PO daily and pravastatin 40 mg PO daily. #Depression: * Continue hufjz-si-mxjqgfttn Wellbutrin XL 150 mg PO daily and Zoloft 200 mg PO daily. Diet: Heart Healthy DVT PPx: Xarelto and ALPs Pain: Dilaudid 2 mg PO Q4H PRN for severe pain (scale 7-10) Motrin 600 mg PO Q6H PRN for moderate pain (scale 4-6) Tylenol 650 mg PO Q6H PRN for mild pain (scale 1-3) CODE: FULL As Ranked By This Provider Problem List: 1. Atrial fibrillation 2. COPD exacerbation 3. Iron deficiency anemia 4. Depression 5. Hypertension 6. Hyperlipidemia 7. CAD (coronary artery disease) 8. Hypertension 9. Hypothyroidism 10. Hypothyroidism Core Measures/Miscellaneous Acute Coronary Syndrome ACS Diagnosis: No Cerebrovascular Accident CVA/TIA Diagnosis: No Congestive Heart Failure CHF Diagnosis: No VTE (View Protocol) VTE Risk Factors: Acute medical illness, Age > 40, CHF or Resp failure No [facility] V[facility] prophylaxis d/t: No contraindications No VTE Pharm Prophylaxis d/t: No contraindications VTE Diagnosis: No VTE Type: NONE VTE Confirmed by (Test): NONE Sepsis (View Protocol) Severe Sepsis Present: No Septic Shock Septic Shock Present: No Miscellaneous Documentation Attending Case Discussed With: [facility] Primary Care Physician: GERARD MARION MD Patient sees these Specialists Plate Former Gerard London MD Table Operator Gerard Naranjo MD PhD Mid Level Clinician Antwon Pandya MD Breaker Hand Antwon Woods MD Contract Technician Damaso Bahena MD Level of Patient Care: General Medicine JENNIFER SMITH 03/02/17 2116: General Information and HPI Allergies/Medications Home Med list Acetaminophen (Arthritis Pain Reliever) 650 MG TABLET.ER 2 TAB PO PRN PAIN ( Reported) Albuterol Sulfate 2.5 MG/3 ML (0.083 %) VIAL.NEB 1 Vial INH/DANIKA 4XDAILY PRN RESPIRATORY (Reported) Alprazolam 0.5 MG TABLET 1 TAB PO BID ANXIETY (Reported) Amiodarone HCl 200 MG TABLET 1 TAB PO DAILY ARRYTHMIA Arformoterol Tartrate (Brovana) 15 MCG/2 ML VIAL.NEB 1 VIAL INH DAILY RESPIRATORY (Reported) Ascorbic Acid (C-1000) 1,000 MG TABLET 1 TAB PO DAILY SUPPLEMENT (Reported) Budesonide (Pulmicort) 0.5 MG/2 ML AMPUL.NEB 1 Vial INH/DANIKA BID COPD ( Reported) Bupropion HCl (Bupropion HCl Sr) 150 MG TABLET.ER 1 TAB PO QAM DEPRESSION ( Reported) Calcium Carbonate/Vitamin D3 (Caltrate 600 + D Tablet) 1 EACH TABLET 2 TAB PO DAILY SUPPLEMENT (Reported) Cholecalciferol (Vitamin D3) (Vitamin D3) 400 UNIT TABLET 1 TAB PO DAILY SUPPLEMENT (Reported) Cyanocobalamin (Vitamin B-12) (B-12) (Unknown Strength) TABLET (Unknown Dose) PO DAILY SUPPLEMENT (Reported) Dicyclomine HCl 10 MG CAPSULE 1 CAP PO TID ABD CRAMPING (Reported) Diltiazem HCl (Diltiazem ER) 180 MG CAPSULE.ER 1 TAB PO DAILY heart rate ( Reported) Docusate Sodium (Colace) 100 MG CAPSULE 2 CAP PO QPM STOOL SOFTENER (Reported ) Ezetimibe (Zetia) 10 MG TABLET 1 TAB PO DAILY CHOLESTEROL (Reported) Ferrous Sulfate 325 MG (65 MG IRON) TABLET 1 TAB PO TID SUPPLEMENT (Reported) Fluticasone/Salmeterol (Advair 250-50 Diskus) 250 MCG-50 MCG/DOSE BLST.W.DEV 1 PUF INH BID BREATHING PROBLEMS (Reported) Folic Acid 1 MG TABLET 1 TAB PO DAILY SUPPLEMENT (Reported) Furosemide (Lasix) 40 MG TABLET 1 TAB PO BID WATER PILL (Reported) Guaifenesin (Mucinex) 600 MG TAB.ER.12H 1 TAB PO DAILY EXPECTORANT (Reported) Levothyroxine Sodium 100 MCG TABLET 1 TAB PO DAILY AC THYROID (Reported) Losartan Potassium 50 MG TABLET 1 TAB PO DAILY BP (Reported) Montelukast Sodium 10 MG TABLET 1 TAB PO DAILY COPD (Reported) Nitroglycerin (Nitro-Dur) 0.6 MG/HOUR PATCH.TD24 1 PATCH TOP DAILY HEART ( Reported) Sanford-3 Fatty Acids/Fish Oil (Fish Oil 1,200 MG Softgel) 360 MG-1,200 MG CAPSULE.DR 1 CAP PO DAILY SUPPLEMENT (Reported) Omeprazole 40 MG CAPSULE.DR 1 CAP PO DAILY GI (Reported) Potassium Chloride 20 MEQ TAB.ER.PRT 1 TAB PO DAILY SUPPLEMENT (Reported) Pravastatin Sodium (Pravachol) 40 MG TABLET 1 TAB PO QPM CHOLESTEROL ( Reported) Rivaroxaban (Xarelto) 20 MG TABLET 1 TAB PO DAILY BLOOD THINNER (Reported) with food Roflumilast (Daliresp) 500 MCG TABLET 1 TAB PO DAILY COPD (Reported) Sertraline HCl (Zoloft) 100 MG TABLET 2 TAB PO DAILY DEPRESSION (Reported) Tiotropium Jakin (Spiriva) 18 MCG CAP.W.DEV 1 CAP INH DAILY copd Reason to Stop at ADM:TRC NEBS ORDERS Vitamin E (Dl,Tocopheryl Acet) (Vitamin E) 400 UNIT CAPSULE 1 TAB PO DAILY SUPPLEMENT (Reported) Resident Review Statement Resident Statement: examined this patient, discussed with internet media planner, agreed with internet media planner, reviewed images, amended to note Other Findings: This is a 67 years old lady with past medical history significant for COPD on 2 L oxygen at home, afebrile lungs are well to, hypertension, hyperlipidemia, coronary artery disease, anxiety, depression, hypothyroidism, fibromyalgia, iron deficiency anemia who was admitted here 8 times in 2016 and so far this is his third admission in 2017 and is presenting with 5 days history of increased congestion, shortness of breath and low-grade fever. Patient lives at home with her daughter and is reporting that the symptoms has been getting worse necessitating increasing her home oxygen to 3 L yesterday. She has been coughing and producing yellow thick sputum, reports low-grade fever with temperature measured around 99 with chills. She denies any sick contacts though she has visited various care providers and might have been exposed to infections. Patient reports wheezing and chest tightness. She reports waking up at night for air, shortness of breath on lying flat currently using 2 pillows while usually uses 1, she denies any lower limb edema and reports to have been taking all her medications without any limitations. Patient reports since January 25 has been experiencing palpitation and that coincides with the restart of her A. fib because of which was restarted on Xarelto. Vital signs on arrival temperature 99.4 heart rate of 124 respiration of 22 blood pressure 126/68 saturating 94% on 2 L Physical examination: Seated comfortably on the bed not in acute distress of late and oriented to time place and person were present. Chest: Bilateral expiratory wheezes, no crackles Heart: Irregularly irregular heartbeat, no murmurs Abdomen: Normal contour moving with respiration no tenderness Extremities: No edema cyanosis or clubbing Labs: Leukocytosis with WBC of 13,677.9 granulocytes no bands, anemia H&H H&H 7. 9 and 24.8, thrombocytosis 805, MCV 90.4, negative lactic acid 0.8, BNP 850 less than 1570 on January admission Imaging: CXR no convincing radiographic evidence of an acute cardiopulmonary process EKG: A. fib around 120 bpm, normal axis, no ST-T wave changes, QTC 450 Assessment and plan 67 years old lady with history of COPD oxygen dependent 2 L at home, A. fib on Xarelto, hyperlipidemia, CAD anxiety depression hypothyroidism, and deficiency anemia presenting with 5 days history of increased congestion, increased work of breathing cough productive of thick yellow sputum associated with low-grade fevers and chills. She has leukocytosis of 13,600 with granulocytes of 77.9 and no bands Problem list COPD exacerbation A. fib with rapid ventricular rate Anemia Admit the patient to general medicine floor Getting transfusion 1 unit of PRBC aim to keep HB above 8.0 due to CAD TRC nebs, titrate oxygen to maintain saturation above 92% She has received Solu-Medrol 125 mg, continue with Solu-Medrol 40 mg every 8 hours Continue with home inhalers/nebulizers Roflumilast, Budesonide, Symbicort, Ventolin, Advair Brovana Continue breathing medications Diltiazem 180 mg daily, amiodarone 200 mg daily Lower respiratory culture, urine Legionella and strep antigens Continue all other home medications Patient is on Xarelto for A. fib and DVT prophylaxis She is full code ABIDA ETIENNE, [facility] 03/02/17 2240: Attending MD Review Statement Attending Statement Attending MD Statement: examined this patient, discuss w/resident/PA/WOOD STAINER, agreed w/resident/PA/WOOD STAINER Attending Assessment/Plan: 67 yo F with h/o HTN, CAD s/p IWMI, severe COPD on 2L O2 with multiple exacerbations, chronic diastolic heart failure, depression, anxiety, iron deficiency anemia, Afib s/p cardioversion on xarelto, recently admitted to [facility] (02/16 02/18) for anemia s/p PRBC (small bowel AVMs with MADIHA), returns today for c/o worsening dyspnea, cough productive of yellow-green phlegm with increased O2 requirement for the past 5 days. Low grade temp+. She had [facility] and received a dose of Solumedrol. Denies sick contacts. She is scheduled to follow up with Dr. Bahena (Cardio @ [facility]) for her Afib on Saturday. Palpitations+. Reports a 3 lb weight gain. Fell from her bed this morning, hitting left elbow. She received solumedrol, Ceftaz, azithro and lasix in ER. Vitals stable except for tachycardia to 110's, sats 94% on 2 L. AAO, no distress , Chest b/l basilar rhonchi and expiratory wheeze+. Heart S1S2 irregular, tachycardic. LE: no edema. Labs: WBC 13.6, H/H 7.9/24.8 (dropped from 9.5/30.2), BUN 20, trop neg. UA neg. CXR: chronic reticular opacities left lung base. Left elbow xray neg. EKG: A. Fib 108, Qtc 451. 1. Exertional dyspnea, chronic hypoxic respiratory failure in the setting of COPD exacerbation, with possible clinical pneumonia, not in florid CHF. Underlying afib could be a cause for her symptoms. GM 23 Obs, sputum culture, TRC nebs, IV steroids, IV ceftaz (grown pseudomonas) and azithro for now, taper antibiotics based on clinical condition. Obtain Pulm consult (Dr. Alberts). Repeat EKG and troponin in AM. Resume cardizem, amiodarone and xarelto. Continue PO lasix at home dose 40 BID. Consult Cardio in AM. 2. Acute on chronic anemia, this could also be playing a role in her symptoms. Type and crossmatch, transfuse 1 unit PRBC only, recheck CBC in AM. Avoid multiple transfusions and fluid overload. Keep Hb>8.0. DVT ppx Xarelto. Full code.
[2017-03-02 20:35] VITALS: BP 130/64
--- NOTE | 2017-03-02 21:12 | NUR ---
PATIENT ARRIVED TO FLOOR AT 2025 FROM ER, DX COPD EXACERBATION VS 98.4 122 20 130/64 92% 2L O2 (BASELINE) A&O, WHEEZING THROUGHOUT, SOB ON EXERTION, PROD COUGH, YELLOW THICK SPUTUM, SCANT AMOUNT; INDEPEDENT, SKIN INTACT. PT FELL OOB THIS AM, FALL RISK, PRECAUTIONS IN PLACE, REFUSING BED ALARM. IV #22 TO RW, HEP LOCKED; #20 TO RH BLOOD TRANSFUSION RUNNING, STARTED SHORTLY AFTER PATIENT ARRIVED TO FLOOR. PT WANTING A PRIVATE ROOM, STATES SHE CAN'T SLEEP, ETC, APPEARED TO START BECOMING ANXIOUS ABOUT IT. MOVING TO ROOM 217. PT ORIENTED TO ROOM AND CALL BEATTY. SAFETY MAINTAINED, ALL NEEDS WITHIN REACH.
[2017-03-02 23:00] VITALS: BP 128/68
[2017-03-03 06:35] VITALS: BP 132/70
--- NOTE | 2017-03-03 08:19 | PN- Housestaff ---
Subjective Follow-up For: Acute on chronic hypoxemic respiratory failure COPD exacerbation Pneumonia Acute on chronic anemia Afib Subjective: Patient seen and examined this morning. She reports she no longer feels short of breath at rest but still coughing a lot with white/yellowish sputum. Denies any fever, chills, chest discomfort, palpitations, abdominal pain, nausea, vomiting, headache. Review of Systems Constitutional: Reports: see HPI. Objective Last 24 Hrs of Vital Signs/I&O Vital Signs Date Time Temp Pulse Resp B/P B/P Pulse O2 O2 Flow FiO2 Mean Ox Delivery Rate 03/03 0813 96 Nasal 2.0L Cannula 03/03 635 97.7 119 18 132/70 96 Nasal 2.0L Cannula 03/03 0000 Nasal 2.0L Cannula 03/02 2300 98.0 116 20 128/68 98 Nasal 2.0L Cannula 03/02 2105 Nasal 2.0L Cannula 03/02 2035 92 Nasal 2.0L Cannula 03/02 2035 98.4 122 20 130/64 92 Nasal 3.0L Cannula 03/02 2005 97.1 115 20 145/65 98 Nasal 2.0L Cannula 03/02 1732 95 Nasal 2.0L Cannula 03/02 1712 99.4 124 22 126/68 94 Nasal 2.0L Cannula Intake & Output 03/03 1600 03/03 0800 03/03 0000 Intake Total 300 880 Output Total 650 Balance 300 230 Intake, Blood 350 Product Intake, IV 50 Intake, Oral 300 480 Output, Urine 650 Patient 58.967 kg Weight Weight Reported by Patient Measurement Method Physical Exam General Appearance: Alert, Oriented X3, Cooperative, No Acute Distress Other Physical Findings: Skin No Rashes Skin Temp/Moisture Exam: Warm/Dry HEENT Atraumatic, Mucous Membr. moist/pink Neck Supple, No JVD Cardiovascular Irregularly irregular Lungs Scattered Expiratory Wheezes Distributed Throughout Bilateral Lung Encarnacion, Bibasilar Rhonchi Abdomen Soft, No Tenderness, Positive Bowel Sounds Extremities No Clubbing, No Cyanosis, No Edema Current Medications: Current Medications Sig/Lana Start time Last Medication Dose Route Stop Time Status Admin Acetaminophen 650 MG Q6P PRN 03/02 2230 AC PO Acetaminophen 0 .STK-MED ONE 03/02 2012 DC PO Acetaminophen 650 MG ONCE ONE 03/02 2000 DC 03/02 PO 03/02 Albuterol Sulfate 3 ML EVERY 4 HRS/AWAKE 03/03 0800 AC 03/03 INH 0807 Albuterol Sulfate 3 ML Q4 HRS NEEDED PRN 03/02 2200 AC INH Alprazolam 0.5 MG BID PRN 03/02 2200 AC 03/02 PO 03/09 2159 2317 Amiodarone HCl 200 MG DAILY 03/03 1000 AC PO Ascorbic Acid 1,000 MG DAILY 03/03 1000 AC PO Azithromycin 500 MG DAILY 03/03 1000 AC Sodium Chloride 250 ML IV Azithromycin 500 MG ONCE ONE 03/02 1830 DC 03/02 Sodium Chloride 250 ML IV 03/02 1929 2259 Budesonide/ 2 PUF BID 03/02 2212 AC 03/03 Formoterol Fumarate INH 0105 Bupropion HCl 150 MG QAM 03/03 1000 AC PO Calcium 600 MG BID 03/03 1000 AC PO Ceftazidime 1,000 MG IQ8 03/03 0000 AC 03/03 IV 0056 Ceftazidime 0 .STK-MED ONE 03/02 183 DC .ROUTE Ceftazidime 1,000 MG ONCE ONE 03/02 1830 DC 03/02 IV 03/02 183 2004 Cholecalciferol 400 IU DAILY 03/03 1000 AC PO Dicyclomine HCl 10 MG TID 03/03 0100 AC 03/03 PO 0122 Dicyclomine HCl 10 MG TID 03/028 DC PO Diltiazem HCl 180 MG DAILY 03/03 1000 AC PO Docusate Sodium 200 MG QPM 03/03 2200 AC PO Docusate Sodium 200 MG ONCE ONE 03/02 2000 DC 03/02 PO 03/02 2001 230 Ezetimibe 10 MG DAILY 03/03 1000 AC PO Ferrous Sulfate 325 MG TID 03/03 0100 AC 03/03 PO 0122 Ferrous Sulfate 325 MG TID 03/02 2300 DC PO Fish Oil 1,050 MG DAILY 03/03 1000 AC PO Folic Acid 1 MG DAILY 03/03 1000 AC PO Furosemide 40 MG BID 03/03 1000 AC PO Furosemide 0 .STK-MED ONE 03/02 2012 DC IV Furosemide 40 MG ONCE ONE 03/02 2000 DC 03/02 IV 03/02 Guaifenesin 600 MG DAILY 03/03 1000 AC PO Hydromorphone HCl 2 MG Q4P PRN 03/02 2245 AC PO Ibuprofen 600 MG Q6P PRN 03/02 2230 AC PO Levothyroxine Sodium 0.1 MG DAILY AC 03/03 0700 AC 03/03 PO 0620 Losartan Potassium 50 MG DAILY 03/03 1000 AC PO Methylprednisolone 40 MG Q8 03/03 06 AC 03/03 IV 03/06 2201 0619 Methylprednisolone 0 .STK-MED ONE 03/02 1836 DC .ROUTE Methylprednisolone 125 MG ONCE ONE 03/02 183 DC 03/02 IV 03/02 1831 1840 Montelukast Sodium 10 MG 2200 03/03 2200 AC PO Nitroglycerin 0.6 MG DAILY 03/03 1000 AC TOP Non-Formulary 0 SEE ADMIN CRITERIA 03/02 221 CAN Medication ANY Non-Formulary 0 SEE ADMIN CRITERIA 03/02 221 CAN Medication ANY Omeprazole 40 MG DAILY AC 03/03 0700 AC 03/03 PO 0620 Potassium Chloride 20 MEQ DAILY 03/03 1000 AC PO Potassium Chloride 40 MEQ ONCE ONE 03/03 0715 DC PO 03/03 0716 Pravastatin Sodium 40 MG QPM 03/03 2200 CAN PO Pravastatin Sodium 40 MG 1700 03/02 2015 AC 03/02 PO 2259 Rivaroxaban 20 MG DAILY 03/03 1000 AC PO Roflumilast 500 MCG DAILY 03/03 1000 AC PO Sertraline HCl 200 MG DAILY 03/03 1000 AC PO Thiamine HCl 50 MG DAILY 03/03 1000 AC PO Tiotropium Victor 1 PUF DAILY 03/03 1000 AC INH Vitamin E 400 IU DAILY 03/03 1000 AC PO Last 24 Hrs of Lab/Wan Results Last 24 Hrs of Labs/Mics: Laboratory Tests 03/03/17 0730: Sodium Pending, Potassium Pending, Chloride Pending, Carbon Dioxide Pending, Anion Gap Pending, BUN Pending, Creatinine Pending, BUN/Creatinine Ratio Pending , Troponin I Pending, CBC w Diff Pending, WBC Pending, RBC Pending, Hgb Pending, Hct Pending, MCV Pending, MCH Pending, RDW Pending, Plt Count Pending, MPV Pending, PUBS MCHC Pending 03/02/17 2310: Urine Color STRAW, Urine Clarity CLEAR, Urine pH 6.0, Ur Specific [place] 1.010, Urine Protein NEG, Urine Ketones NEG, Urine Nitrite NEG, Urine Bilirubin NEG, Urine Urobilinogen 0.2, Ur Leukocyte Esterase NEG, Ur Microscopic EXAM NOT REQUIRED, Urine Hemoglobin NEG, Urine Glucose NEG 03/02/172023: Lactic Acid Cancelled 03/02/171802: Anion Gap 11, Estimated GFR > 60, BUN/Creatinine Ratio 25.0, Glucose 88, Lactic Acid 0.7, Calcium 9.3, Total Bilirubin 0.2, AST 26, ALT 58 H, Alkaline Phosphatase 72, Troponin I < 0.01, Lne-I-Yjyrldyliyn Pept 850 H, Total Protein 5.7 L, Albumin 3.4 L, Globulin 2.3, Albumin/Globulin Ratio 1.5, CBC w Diff NO MAN DIFF REQ, RBC 2.74 L, MCV 90.4, MCH 28.8, RDW 17.0 H, MPV 6.3 L, Gran % 77.9 H, Lymphocytes % 7.8 L, Monocytes % 10.3 H, Eosinophils % 3.2, Basophils % 0.8, Absolute Granulocytes 10.6 H, Absolute Lymphocytes 1.1 L, Absolute Monocytes 1.4 H, Absolute Eosinophils 0.4, Absolute Basophils 0.1, PUBS MCHC 31.9 L Microbiology 03/02 2310 URINE ROUT: Legionella Antigen - COMP 03/02 2310 URINE ROUT: Streptococcus pneumoniae Antigen (M - COMP 03/02 2144 LOWER RESP: Respiratory Culture - COLB 03/02 2144 LOWER RESP: Gram Stain - COLB 03/02 1956 BLOOD: Blood Culture - RECD 03/02 1803 BLOOD: Blood Culture - RECD Assessment/Plan Assessment: Ms. 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 #Acute on chronic hypoxemic respiratory failure: Likely secondary to COPD exacerbation given worsening cough with sputum production and expiratory wheezes on exam although atrial fibrillation and acute on chronic anemia are possible contributing factors. Although CXR is without any focal consolidation, pneumonia is a possibility given low-grade fevers at home and extensive rhonchi on exam. Although patient has history of chronic diastolic CHF, acute exacerbation is unlikely in the absence of JVD, peripheral edema or pulmonary edema on CXR to suggest volume overload and proBNP 850 which is low for patient. 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 No S/p 125 mg of IV Solumedrol and 1 dose of azithromycin and ceftazidime in the ED. * Cont observation in General Medicine. * Pulmonology consulted, appreciate recs * Check sputum Cx, urinary Strep pneumo and Legionella antigen. * TRC and nebs. * Provide supplemental oxygen to keep SpO2 >92%. * Solumedrol 40 mg IV Q8H. * Continue smnlg-cr-gcezobofl Spiriva 1 puff daily, Symbicort 2 puffs BID, Mucinex 600 mg PO daily and roflumilast 500 mcg PO daily. * Continue ceftazidime 1 g IV Q8H given history of Pseudomonas in the sputum and azithromycin 500 mg IV daily for possible pneumonia. #Acute on chronic anemia: H/H 7.9/24.8 on admission. Possibly contributing to patient's presenting symptom of shortness of breath. History of iron deficiency anemia felt to be secondary to small bowel AVMs. * Type and crossmatch. * Received 1 unt of pRBCs with an appropriate response * Repeat H/H - Hgb 9 * Continue home med folic acid 1 mg PO daily. #Atrial fibrillation: In atrial fibrillation on admission with HR 100s-120s. Has recently reverted to atrial fibrillation on 01/21 after being in normal sinus rhythm for about 5 months following DC cardioversion and dofetilide therapy for rhythm maintenance. * Cardiology consult * Continue jqvfd-zr-moojtoaoa Xarelto 20 mg PO daily. * Continue numvs-yk-gjguykgof amiodarone 200 mg PO daily and diltiazem 180 mg PO daily. #CAD: No evidence of active CAD. EKG with no ST-T changes. Troponin negative. * Continue rdwam-mx-wjsilldvm nitroglycerin 0.6 mg patch. * Repeat EKG and troponin in the AM. #HTN: * Continue ovhdk-yg-xnuyzexib losartan 50 mg PO daily. #HLD: * Continue veuii-yz-tkoxzjjpu fish oil supplement, ezetimibe 10 mg PO daily and pravastatin 40 mg PO daily. #Depression: * Continue ckzdb-bb-zgoofvhgh Wellbutrin XL 150 mg PO daily and Zoloft 200 mg PO daily. Diet: Heart Healthy DVT PPx: Xarelto and ALPs #Pain: CODE: FULL Problem List: 1. Abdominal pain 2. COPD exacerbation 3. Iron deficiency anemia 4. Atrial fibrillation 5. Osteoarthritis 6. CAP (community acquired pneumonia) 7. Atrial fibrillation Pain Ratin Pain Location: 0 Pain Goal: Remain pain free Pain Plan: Mild path Tomorrow's Labs & Rationales: CBC BEP Tomorrow's Labs & Rationales: CBC BEP
[2017-03-03 09:51] LABS: ABSOLUTE BASOPHIL COUNT 0 /CUMM (0.0-0.2); ABSOLUTE EOSINOPHIL COUNT 0 /CUMM (0.0-0.7); ABSOLUTE GRANULOCYTE CT 10.2 /CUMM (1.4-6.5); ABSOLUTE LYMPH COUNT 0.7 /CUMM (1.2-3.4); ABSOLUTE MONOCYTE COUNT 0.2 /CUMM (0.10-0.60); BASOPHIL % 0 % (0.0-2.0); EOSINOPHIL % 0 % (0-5); GRANULOCYTE % 92.3 % (42.2-75.2); HEMATOCRIT 28.7 % (37-47); MEAN CORPUSCULAR HGB 29.1 PG (27.0-31.0); MEAN CORPUSCULAR HGB CONC 32.3 G/DL (33.0-37.0); MEAN CORPUSCULAR VOLUME 90.1 FL (81.0-99.0); MEAN PLATELET VOLUME 6.6 FL (7.4-10.4); PLATELET COUNT 760 /CUMM (130-400); RBC DISTRIBUTION WIDTH 16.8 % (11.5-14.5); RED BLOOD CELL CT 3.19 /CUMM (4.20-5.40); WHITE BLOOD CELL COUNT 11.1 /CUMM (4.8-10.8)
--- NOTE | 2017-03-03 10:37 | Cons- Pulmonary ---
General Information and HPI Consulting Request Date of Consult: 03/03/17 Requested By: flavia Reason for Consult: Shortness of breath History of Present Illness: Patient has history of severe oxygen-dependent COPD atrial fibrillation occult GI bleeding admitted with increased shortness breath cough productive yellow sputum. She was recently admitted and sputum cultures revealed Pseudomonas. Her chest x-ray shows no evidence of acute pneumonia. She is again anemic Allergies/Medications Allergies: Coded Allergies: menotropins (HIVES FROM PERGONAL 11/15/15) apixaban (HEMATOMA TO HIP 02/02/17) Home Med List: Acetaminophen (Arthritis Pain Reliever) 650 MG TABLET.ER 2 TAB PO PRN PAIN ( Reported) Albuterol Sulfate 2.5 MG/3 ML (0.083 %) VIAL.NEB 1 Vial INH/DANIKA 4XDAILY PRN RESPIRATORY (Reported) Alprazolam 0.5 MG TABLET 1 TAB PO BID ANXIETY (Reported) Amiodarone HCl 200 MG TABLET 1 TAB PO DAILY ARRYTHMIA Arformoterol Tartrate (Brovana) 15 MCG/2 ML VIAL.NEB 1 VIAL INH DAILY RESPIRATORY (Reported) Ascorbic Acid (C-1000) 1,000 MG TABLET 1 TAB PO DAILY SUPPLEMENT (Reported) Budesonide (Pulmicort) 0.5 MG/2 ML AMPUL.NEB 1 Vial INH/DANIKA BID COPD ( Reported) Bupropion HCl (Bupropion HCl Sr) 150 MG TABLET.ER 1 TAB PO QAM DEPRESSION ( Reported) Calcium Carbonate/Vitamin D3 (Caltrate 600 + D Tablet) 1 EACH TABLET 2 TAB PO DAILY SUPPLEMENT (Reported) Cholecalciferol (Vitamin D3) (Vitamin D3) 400 UNIT TABLET 1 TAB PO DAILY SUPPLEMENT (Reported) Cyanocobalamin (Vitamin B-12) (B-12) (Unknown Strength) TABLET (Unknown Dose) PO DAILY SUPPLEMENT (Reported) Dicyclomine HCl 10 MG CAPSULE 1 CAP PO TID ABD CRAMPING (Reported) Diltiazem HCl (Diltiazem ER) 180 MG CAPSULE.ER 1 TAB PO DAILY heart rate ( Reported) Docusate Sodium (Colace) 100 MG CAPSULE 2 CAP PO QPM STOOL SOFTENER (Reported ) Ezetimibe (Zetia) 10 MG TABLET 1 TAB PO DAILY CHOLESTEROL (Reported) Ferrous Sulfate 325 MG (65 MG IRON) TABLET 1 TAB PO TID SUPPLEMENT (Reported) Fluticasone/Salmeterol (Advair 250-50 Diskus) 250 MCG-50 MCG/DOSE BLST.W.DEV 1 PUF INH BID BREATHING PROBLEMS (Reported) Folic Acid 1 MG TABLET 1 TAB PO DAILY SUPPLEMENT (Reported) Furosemide (Lasix) 40 MG TABLET 1 TAB PO BID WATER PILL (Reported) Guaifenesin (Mucinex) 600 MG TAB.ER.12H 1 TAB PO DAILY EXPECTORANT (Reported) Levothyroxine Sodium 100 MCG TABLET 1 TAB PO DAILY AC THYROID (Reported) Losartan Potassium 50 MG TABLET 1 TAB PO DAILY BP (Reported) Montelukast Sodium 10 MG TABLET 1 TAB PO DAILY COPD (Reported) Nitroglycerin (Nitro-Dur) 0.6 MG/HOUR PATCH.TD24 1 PATCH TOP DAILY HEART ( Reported) [place]-3 Fatty Acids/Fish Oil (Fish Oil 1,200 MG Softgel) 360 MG-1,200 MG CAPSULE.DR 1 CAP PO DAILY SUPPLEMENT (Reported) Omeprazole 40 MG CAPSULE.DR 1 CAP PO DAILY GI (Reported) Potassium Chloride 20 MEQ TAB.ER.PRT 1 TAB PO DAILY SUPPLEMENT (Reported) Pravastatin Sodium (Pravachol) 40 MG TABLET 1 TAB PO QPM CHOLESTEROL ( Reported) Rivaroxaban (Xarelto) 20 MG TABLET 1 TAB PO DAILY BLOOD THINNER (Reported) with food Roflumilast (Daliresp) 500 MCG TABLET 1 TAB PO DAILY COPD (Reported) Sertraline HCl (Zoloft) 100 MG TABLET 2 TAB PO DAILY DEPRESSION (Reported) Tiotropium [place] (Spiriva) 18 MCG CAP.W.DEV 1 CAP INH DAILY copd Reason to Stop at ADM:TRC NEBS ORDERS Vitamin E (Dl,Tocopheryl Acet) (Vitamin E) 400 UNIT CAPSULE 1 TAB PO DAILY SUPPLEMENT (Reported) Review of Systems Review of Systems Constitutional: Denies: chills, fever. Cardiovascular: Denies: chest pain, edema. Respiratory: Reports: cough, short of breath, sputum production. GI: Denies: abdominal pain, bloating, diarrhea, melena. Past History Travel History Traveled to [place] past 21 day No Medical History Blood Transfusion Hx: Yes Neurological: meningitis (viral in 2008) EENT: cataracts (on right with IOL), hearing loss Cardiovascular: AFIB, CAD, diastolic CHF, hypertension, hyperlipidemia, myocardial infarction (in 1995) Respiratory: COPD, pneumonia Gastrointestinal: GERD, irritable bowel syndrome, ulcerative colitis, 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 diverticulosis Hepatic: NONE Renal: NONE Musculoskeletal: fibromyalgia, osteoarthritis Psychiatric: anxiety, depression, PTSD Endocrine: hypothyroidism Blood Disorders: anemia Cancer(s): skin cancer [employer]/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: miscarriage Other Medical Hx: discoid lupus eczema ulcerative colitis Surgical History Surgical History: appendectomy, hernia repair-hiatal tonsillectomy tonsillectomy Family History Relations & Conditions If Any: MOTHER FH: CAD (coronary artery disease) FH: COPD (chronic obstructive pulmonary disease) FH: heart disease FATHER Alzheimer's disease BROTHER FH: CAD (coronary artery disease) BROTHER FH: CAD (coronary artery disease) BROTHER FH: CAD (coronary artery disease) Psychosocial History Where Do You Live? Home Who Do You Live With? child Services at Home: Oxygen Primary Language: [place] Smoking Status: Former Smoker (40 Pack Yrs, Quit 4 Yrs Ago) ETOH Use: denies use Illicit Drug Use: denies illicit drug use Functional Ability ADLs Independent: dressing, eating, toileting, bathing. Ambulation: independent IADLs Independent: shopping, housework, finances, food prep, telephone, transportation , medication admin. Employment History Employment: Retired Exam & Diagnostic Data Last 24 Hrs of Vital Signs/I&O Vital Signs Date Time Temp Pulse Resp B/P B/P Pulse O2 O2 Flow FiO2 Mean Ox Delivery Rate 03/03 813 96 Nasal 2.0L Cannula 03/03 635 97.7 119 18 132/70 96 Nasal 2.0L Cannula 03/03 0000 Nasal 2.0L Cannula 03/02 2300 98.0 116 20 128/68 98 Nasal 2.0L Cannula 03/02 2105 Nasal 2.0L Cannula 03/02 2035 92 Nasal 2.0L Cannula 03/02 2035 98.4 122 20 130/64 92 Nasal 3.0L Cannula 03/02 2005 97.1 115 20 145/65 98 Nasal 2.0L Cannula 03/022 95 Nasal 2.0L Cannula 03/02 1712 99.4 124 22 126/68 94 Nasal 2.0L Cannula Intake & Output 03/03 1600 03/03 0800 03/03 0000 Intake Total 300 880 Output Total 650 Balance 300 230 Intake, Blood 350 Product Intake, IV 50 Intake, Oral 300 480 Output, Urine 650 Patient 130 lb Weight Weight Reported by Patient Measurement Method Oxygen saturation 2 L 96% exam for chest shows scattered expiratory wheezes cardiac exam shows regular S1 and S2 without murmurs abdomen is soft nontender there's no edema Last 48 Hrs of Labs/Wan: Laboratory Tests 03/03/17 0730: Anion Gap 9, Estimated GFR > 60, BUN/Creatinine Ratio 27.1 H, Troponin I < 0.01 , CBC w Diff Pending, WBC Pending, RBC Pending, Hgb Pending, Hct Pending, MCV Pending, MCH Pending, RDW Pending, Plt Count Pending, MPV Pending, Gran % Pending, Lymphocytes % Pending, Monocytes % Pending, Eosinophils % Pending, Basophils % Pending, Absolute Granulocytes Pending, Absolute Lymphocytes Pending , Absolute Monocytes Pending, Absolute Eosinophils Pending, Absolute Basophils Pending, PUBS MCHC Pending 03/02/172309: Urine Color STRAW, Urine Clarity CLEAR, Urine pH 6.0, Ur Specific [place] 1.010, Urine Protein NEG, Urine Ketones NEG, Urine Nitrite NEG, Urine Bilirubin NEG, Urine Urobilinogen 0.2, Ur Leukocyte Esterase NEG, Ur Microscopic EXAM NOT REQUIRED, Urine Hemoglobin NEG, Urine Glucose NEG 03/02/172023: Lactic Acid Cancelled 03/02/17 1803: Anion Gap 11, Estimated GFR > 60, BUN/Creatinine Ratio 25.0, Glucose 88, Lactic Acid 0.7, Calcium 9.3, Total Bilirubin 0.2, AST 26, ALT 58 H, Alkaline Phosphatase 72, Troponin I < 0.01, Jvr-S-Mywojngzurc Pept 850 H, Total Protein 5.7 L, Albumin 3.4 L, Globulin 2.3, Albumin/Globulin Ratio 1.5, CBC w Diff NO MAN DIFF REQ, RBC 2.74 L, MCV 90.4, MCH 28.8, RDW 17.0 H, MPV 6.3 L, Gran % 77.9 H, Lymphocytes % 7.8 L, Monocytes % 10.3 H, Eosinophils % 3.2, Basophils % 0.8, Absolute Granulocytes 10.6 H, Absolute Lymphocytes 1.1 L, Absolute Monocytes 1.4 H, Absolute Eosinophils 0.4, Absolute Basophils 0.1, PUBS MCHC 31.9 L Microbiology 03/02 2310 URINE ROUT: Legionella Antigen - COMP 03/02 2310 URINE ROUT: Streptococcus pneumoniae Antigen (M - COMP Assessment/Plan Impression/Plan: 67-year-old woman with atrial fibrillation on anticoagulation comes in with worsening anemia or shortness breath cough productive of yellow sputum and bronchospasm. No cultures have in the past grown Pseudomonas. Recommendations: Taper FiO2 as saturations allow. Consider changing antibiotics to Cipro pending results of sputum C&S. GI evaluation for continued blood loss anemia. Transfuse to baseline hematocrit. Continue IV steroids for now. Consult Acknowledgment - Thank you for your consult request.
--- NOTE | 2017-03-03 12:51 | PN- Att Addend ---
Attending Addendum Attending Brief Note Patient seen and examined. Plan of care discussed with the medical team and the patient. Available lab work and radiology test reports were reviewed. Patient is resting in bed. She does not appear to be in any respiratory distress. She continues to have mild cough but no chest pain fever or chills. Vital Signs Date Time Temp Pulse Resp B/P B/P Pulse O2 O2 Flow FiO2 Mean Ox Delivery Rate 03/03 1150 119 132/70 03/03 1150 119 132/70 03/03 0813 96 Nasal 2.0L Cannula 03/03 0635 97.7 119 18 132/70 96 Nasal 2.0L Cannula 03/03 0000 Nasal 2.0L Cannula 03/02 2300 98.0 116 20 128/68 98 Nasal 2.0L Cannula 03/02 2105 Nasal 2.0L Cannula 03/02 2035 92 Nasal 2.0L Cannula 03/02 2035 98.4 122 20 130/64 92 Nasal 3.0L Cannula 03/02 2005 97.1 115 20 145/65 98 Nasal 2.0L Cannula 03/02 1732 95 Nasal 2.0L Cannula 03/02 1712 99.4 124 22 126/68 94 Nasal 2.0L Cannula Intake & Output 03/03 1600 03/03 0800 03/03 0000 Intake Total 300 880 Output Total 650 Balance 300 230 Intake, Blood 350 Product Intake, IV 50 Intake, Oral 300 480 Output, Urine 650 Patient 130 lb Weight Weight Reported by Patient Measurement Method Exam: General: Patient awake alert oriented without any distress ; appears comfortable at rest CVS: S1 plus S2 without any murmur or gallops Chest: Few scattered crepitation without any wheeze. There is no respiratory distress. Abdomen: Soft nontender, bowel sound present, no guarding or rebound FLUMER: Awake alert oriented without any focal neuro deficit and follows command appropriately Extremities: No edema; no clubbing or cyanosis noted Laboratory Tests 03/03 03/02 0730 2310 Chemistry Sodium (137 - 145 mmol/L) 134 L Potassium (3.5 - 5.1 mmol/L) 3.8 Chloride (98 - 107 mmol/L) 95 L Carbon Dioxide (22 - 30 mmol/L) 30 Anion Gap (5 - 16) 9 BUN (7 - 17 mg/dL) 19 H Creatinine (0.5 - 1.0 mg/dL) 0.7 Estimated GFR (>60 ml/min) > 60 BUN/Creatinine Ratio (7 - 25 %) 27.1 H Magnesium (1.6 - 2.3 mg/dL) 1.8 Troponin I (< 0.11 ng/ml) < 0.01 Hematology CBC w Diff MAN DIFF ORDERED WBC (4.8 - 10.8 /CUMM) 11.1 H RBC (4.20 - 5.40 /CUMM) 3.19 L Hgb (12.0 - 16.0 G/DL) 9.3 L Hct (37 - 47 %) 28.7 L MCV (81.0 - 99.0 FL) 90.1 MCH (27.0 - 31.0 PG) 29.1 RDW (11.5 - 14.5 %) 16.8 H Plt Count (130 - 400 /CUMM) 760 H MPV (7.4 - 10.4 FL) 6.6 L Gran % (42.2 - 75.2 %) 92.3 H Lymphocytes % (20.5 - 51.1 %) 6.1 L Monocytes % (1.7 - 9.3 %) 1.6 L Eosinophils % (0 - 5 %) 0 Basophils % (0.0 - 2.0 %) 0 L Absolute Granulocytes (1.4 - 6.5 /CUMM) 10.2 H Absolute Lymphocytes (1.2 - 3.4 /CUMM) 0.7 L Absolute Monocytes (0.10 - 0.60 /CUMM) 0.2 Absolute Eosinophils (0.0 - 0.7 /CUMM) 0 Absolute Basophils (0.0 - 0.2 /CUMM) 0 Platelet Estimate (ADEQUATE) INCREASED Polychromasia 1+ Anisocytosis 1+ PUBS MCHC (33.0 - 37.0 G/DL) 32.3 L Urines Urine Color (YEL,AMB,STR) STRAW Urine Clarity (CLEAR) CLEAR Urine pH (5.0 - 8.0) 6.0 Ur Specific [place] (1.001 - 1.035) 1.010 Urine Protein (NEG,<30 MG/DL) NEG Urine Ketones (NEG) NEG Urine Nitrite (NEG) NEG Urine Bilirubin (NEG) NEG Urine Urobilinogen (0.1 - 1.0 EU/dl) 0.2 Ur Leukocyte Esterase (NEG) NEG Ur Microscopic EXAM NOT REQUIRED Urine Hemoglobin (NEG) NEG Urine Glucose (N MG/DL) NEG 03/02 180 Chemistry Sodium (137 - 145 mmol/L) 134 L Potassium (3.5 - 5.1 mmol/L) 3.5 Chloride (98 - 107 mmol/L) 96 L Carbon Dioxide (22 - 30 mmol/L) 27 Anion Gap (5 - 16) 11 BUN (7 - 17 mg/dL) 20 H Creatinine (0.5 - 1.0 mg/dL) 0.8 Estimated GFR (>60 ml/min) > 60 BUN/Creatinine Ratio (7 - 25 %) 25.0 Glucose (65 - 99 mg/dL) 88 Lactic Acid (0.7 - 2.1 mmol/L) Cancelled 0.7 Calcium (8.4 - 10.2 mg/dL) 9.3 Total Bilirubin (0.2 - 1.3 mg/dL) 0.2 AST (14 - 36 U/L) 26 ALT (9 - 52 U/L) 58 H Alkaline Phosphatase (<127 U/L) 72 Troponin I (< 0.11 ng/ml) < 0.01 Bhu-T-Fcupbykkzfk Pept (<125 pg/mL) 850 H Total Protein (6.3 - 8.2 g/dL) 5.7 L Albumin (3.5 - 5.0 g/dL) 3.4 L Globulin (1.9 - 4.2 gm/dL) 2.3 Albumin/Globulin Ratio (1.1 - 2.2 %) 1.5 Hematology CBC w Diff NO MAN DIFF REQ WBC (4.8 - 10.8 /CUMM) 13.6 H RBC (4.20 - 5.40 /CUMM) 2.74 L Hgb (12.0 - 16.0 G/DL) 7.9 L Hct (37 - 47 %) 24.8 L MCV (81.0 - 99.0 FL) 90.4 MCH (27.0 - 31.0 PG) 28.8 RDW (11.5 - 14.5 %) 17.0 H Plt Count (130 - 400 /CUMM) 805 H MPV (7.4 - 10.4 FL) 6.3 L Gran % (42.2 - 75.2 %) 77.9 H Lymphocytes % (20.5 - 51.1 %) 7.8 L Monocytes % (1.7 - 9.3 %) 10.3 H Eosinophils % (0 - 5 %) 3.2 Basophils % (0.0 - 2.0 %) 0.8 Absolute Granulocytes (1.4 - 6.5 /CUMM) 10.6 H Absolute Lymphocytes (1.2 - 3.4 /CUMM) 1.1 L Absolute Monocytes (0.10 - 0.60 /CUMM) 1.4 H Absolute Eosinophils (0.0 - 0.7 /CUMM) 0.4 Absolute Basophils (0.0 - 0.2 /CUMM) 0.1 PUBS MCHC (33.0 - 37.0 G/DL) 31.9 L Microbiology Date/Time Procedure - Status Source Growth 03/03 07 Respiratory Culture - RES LOWER RESP 03/03 730 Gram Stain - RES LOWER RESP 03/02 2310 Legionella Antigen - COMP URINE ROUT 03/020 Streptococcus pneumoniae Antigen (M - COMP URINE ROUT 03/02 2144 Respiratory Culture - CAN LOWER RESP Cancelled: NOT COLLECTED 03/02/17 [facility] 03/02 2144 Gram Stain - CAN LOWER RESP Cancelled: NOT COLLECTED 03/02/17 [facility] 03/02 1956 Blood Culture - RES BLOOD 03/02 1803 Blood Culture - RES BLOOD [place] x-ray did not show any fracture Chest x-ray did not show any acute pneumonia Assessment * COPD exacerbation * Acute bronchitis * Acute respiratory failure * Chronic anemia * Elevated platelet count * Mild hyponatremia * Mild dehydration with elevated BUN Plan * Discontinue IV antibiotic * Begin Cipro 500 twice a day to treat acute bronchitis; note the patient had grown Pseudomonas in the past * Continue other medications * Encourage oral liquids; no the patient also on Lasix, which may need to be held if BUN increases further
[2017-03-03 15:10] VITALS: BP 124/70
--- NOTE | 2017-03-03 17:26 | NUR ---
WAS CALLED INTO PATIENT'S ROOM, SHE PUT GALLERY INTERN IN HER L EYE, INSTEAD OF REWETTING DROPS. ENCOURAGED PATIENT TO RINSE WITH WATER. SLIGHT REDNESS TO EYE. CONTINUE TO MONITOR.
--- NOTE | 2017-03-03 20:15 | Cons- Cardiology ---
General Information and HPI Consulting Request Date of Consult: 03/03/17 Requested By: ABIDA ETIENNE,ASIA History of Present Illness: Cynthia is a 67 year old female with history of hypertension, dyslipidemia, tobacco abuse, and coronary artery disease, status post inferior wall myocardial infarction which she experienced in 1995. This patient also has severe emphysematous COPD. Finally, this patient has atrial fibrillation. In consideration of Cynthia's diagnosis of atrial fibrillation rate control with chronic anticoagulation was initially tried. Due to multiple issues with bleeding we subsequently cardioverted this patient and placed her on Tykosin to maintain a sinus rhythm and avoid the need for anticoagulation. It should be noted that this patient also tends to feel much improved when in a sinus rhythm. During a recent hospital we needed to discontinue Tykosyn due to its ineffectiveness in maintaining a sinus rhythm, its proarrhythmia with episodes of NSVT on the medication and its incompatability with Cipro that was needed for treatment of the patient's infection. The patient now presents to [facility] again for shortness of breath related to a bronchitic exacerbation of COPD. Her breathing is now improving and she denies any chest discomfort or lightheadedness but does feels intermittent palpitations. It should be noted that there is a plan for an atrial fibrillation ablation by Dr. Bahena in the near future. It should be recalled that this patient had a respiratory arrest after her last cardioversion. Cynthia has a 90% ostial PDA on her recent cardiac catheterization. This is a small vessel that is not amenable to PCI. Her other coronaries are patent. Finally, this patient went from [facility] where the above was done to the [facility] where she developed a spontaneous right psoas bleed that occured off anticoagulation. She has also had issues with GI bleeding. Cynthia was discharged from [facility] earlier this year after a prolonged stay during which she was treated for her COPD. Her hospital course was complicated by GI bleeding with severe anemia requiring a transfussion. She now anticipates a double balloon enteroscopy. It should be noted that this patient underwent a recent cardiac catheterization which showed patent coronaries with a normal EF. At [facility], during an exacerbation of her COPD she did demonstrate mild decompensated CHF and a small rise in cardiac enzymes consistent with NSTEMI. Her episodes of respiratory distress are frequent. It may be recalled that on a prior but recent hospital visit she was found unresponsive with hypertcapneic respiratory failure. Cynthia did have a recent stress test that showed a small fixed inferior defect without ischemia that is not unexpected in the setting of her known 90% occluded PDA. Her EF was normal at 72%. At baseline, Cynthia does have shortness of breath which has been attributed to her COPD. This patient has also had some previous bradycardia which has improved to some degree after stopping metoprolol. In absolute terms, this patient will become winded going up 12 steps or if she goes up a hill. In the past, the patient also reported some mild exertional chest pressure that occurs approximately 2 times a month. The patient's cardiac cath showed a short normal left main. The LAD was a large vessel that wrapped around the apex and supplied scant [id number] transseptal collaterals. The left circumflex was a large vessel with luminal irregularities. The right coronary artery was dominant with a 50% proximal stenosis and a 90% ostial stenosis of the PDA. The RV marginal branch initially had an 80% to 90% stenosis which was reduced post angioplasty to a 70% non flow- limiting stenosis. The RV marginal branch was a large vessel that did appear to go to the inferior wall. The PDA on the other hand was a small vessel, although dominant in distribution. It should be noted that a previous cardiac catheterization was performed in [address] Tripathi, who also saw evidence of an occluded PDA. Allergies/Medications Allergies: Coded Allergies: menotropins (HIVES FROM PERGONAL 11/15/15) apixaban (HEMATOMA TO HIP 02/02/17) Home Med List: Acetaminophen (Arthritis Pain Reliever) 650 MG TABLET.ER 2 TAB PO PRN PAIN ( Reported) Albuterol Sulfate 2.5 MG/3 ML (0.083 %) VIAL.NEB 1 Vial INH/DANIKA 4XDAILY PRN RESPIRATORY (Reported) Alprazolam 0.5 MG TABLET 1 TAB PO BID ANXIETY (Reported) Amiodarone HCl 200 MG TABLET 1 TAB PO DAILY ARRYTHMIA Arformoterol Tartrate (Brovana) 15 MCG/2 ML VIAL.NEB 1 VIAL INH DAILY RESPIRATORY (Reported) Ascorbic Acid (C-1000) 1,000 MG TABLET 1 TAB PO DAILY SUPPLEMENT (Reported) Budesonide (Pulmicort) 0.5 MG/2 ML AMPUL.NEB 1 Vial INH/DANIKA BID COPD ( Reported) Bupropion HCl (Bupropion HCl Sr) 150 MG TABLET.ER 1 TAB PO QAM DEPRESSION ( Reported) Calcium Carbonate/Vitamin D3 (Caltrate 600 + D Tablet) 1 EACH TABLET 2 TAB PO DAILY SUPPLEMENT (Reported) Cholecalciferol (Vitamin D3) (Vitamin D3) 400 UNIT TABLET 1 TAB PO DAILY SUPPLEMENT (Reported) Cyanocobalamin (Vitamin B-12) (B-12) (Unknown Strength) TABLET (Unknown Dose) PO DAILY SUPPLEMENT (Reported) Dicyclomine HCl 10 MG CAPSULE 1 CAP PO TID ABD CRAMPING (Reported) Diltiazem HCl (Diltiazem ER) 180 MG CAPSULE.ER 1 TAB PO DAILY heart rate ( Reported) Docusate Sodium (Colace) 100 MG CAPSULE 2 CAP PO QPM STOOL SOFTENER (Reported ) Ezetimibe (Zetia) 10 MG TABLET 1 TAB PO DAILY CHOLESTEROL (Reported) Ferrous Sulfate 325 MG (65 MG IRON) TABLET 1 TAB PO TID SUPPLEMENT (Reported) Fluticasone/Salmeterol (Advair 250-50 Diskus) 250 MCG-50 MCG/DOSE BLST.W.DEV 1 PUF INH BID BREATHING PROBLEMS (Reported) Folic Acid 1 MG TABLET 1 TAB PO DAILY SUPPLEMENT (Reported) Furosemide (Lasix) 40 MG TABLET 1 TAB PO BID WATER PILL (Reported) Guaifenesin (Mucinex) 600 MG TAB.ER.12H 1 TAB PO DAILY EXPECTORANT (Reported) Levothyroxine Sodium 100 MCG TABLET 1 TAB PO DAILY AC THYROID (Reported) Losartan Potassium 50 MG TABLET 1 TAB PO DAILY BP (Reported) Montelukast Sodium 10 MG TABLET 1 TAB PO DAILY COPD (Reported) Nitroglycerin (Nitro-Dur) 0.6 MG/HOUR PATCH.TD24 1 PATCH TOP DAILY HEART ( Reported) [place]-3 Fatty Acids/Fish Oil (Fish Oil 1,200 MG Softgel) 360 MG-1,200 MG CAPSULE.DR 1 CAP PO DAILY SUPPLEMENT (Reported) Omeprazole 40 MG CAPSULE.DR 1 CAP PO DAILY GI (Reported) Potassium Chloride 20 MEQ TAB.ER.PRT 1 TAB PO DAILY SUPPLEMENT (Reported) Pravastatin Sodium (Pravachol) 40 MG TABLET 1 TAB PO QPM CHOLESTEROL ( Reported) Rivaroxaban (Xarelto) 20 MG TABLET 1 TAB PO DAILY BLOOD THINNER (Reported) with food Roflumilast (Daliresp) 500 MCG TABLET 1 TAB PO DAILY COPD (Reported) Sertraline HCl (Zoloft) 100 MG TABLET 2 TAB PO DAILY DEPRESSION (Reported) Tiotropium [place] (Spiriva) 18 MCG CAP.W.DEV 1 CAP INH DAILY copd Reason to Stop at ADM:C NEBS ORDERS Vitamin E (Dl,Tocopheryl Acet) (Vitamin E) 400 UNIT CAPSULE 1 TAB PO DAILY SUPPLEMENT (Reported) Past History Travel History Traveled to [place] past 21 day No Medical History Blood Transfusion Hx: Yes Neurological: meningitis (viral in 2008) EENT: cataracts (on right with IOL), hearing loss Cardiovascular: AFIB, CAD, diastolic CHF, hypertension, hyperlipidemia, myocardial infarction (in 1995) Respiratory: COPD, pneumonia Gastrointestinal: GERD, irritable bowel syndrome, ulcerative colitis, 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 diverticulosis Hepatic: NONE Renal: NONE Musculoskeletal: fibromyalgia, osteoarthritis Psychiatric: anxiety, depression, PTSD Endocrine: hypothyroidism Blood Disorders: anemia Cancer(s): skin cancer [employer]/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: miscarriage Other Medical Hx: discoid lupus eczema ulcerative colitis Surgical History Surgical History: appendectomy, hernia repair-hiatal tonsillectomy tonsillectomy Family History Relations & Conditions If Any: MOTHER FH: CAD (coronary artery disease) FH: COPD (chronic obstructive pulmonary disease) FH: heart disease FATHER Alzheimer's disease BROTHER FH: CAD (coronary artery disease) BROTHER FH: CAD (coronary artery disease) BROTHER FH: CAD (coronary artery disease) Psychosocial History Where Do You Live? Home Who Do You Live With? child Services at Home: Oxygen Primary Language: Haitian Smoking Status: Former Smoker (40 Pack Yrs, Quit 4 Yrs Ago) ETOH Use: denies use Illicit Drug Use: denies illicit drug use Functional Ability ADLs Independent: dressing, eating, toileting, bathing. Ambulation: independent IADLs Independent: shopping, housework, finances, food prep, telephone, transportation , medication admin. Employment History Employment: Retired Exam & Diagnostic Data Vital Signs and I&O Vital Signs Date Time Temp Pulse Resp B/P B/P Pulse O2 O2 Flow FiO2 Mean Ox Delivery Rate 03/03 1608 98 Nasal 2.0L Cannula 03/03 1600 98 Nasal 2.0L Cannula 03/03 1510 98.5 114 18 124/70 98 Nasal 2.0L Cannula 03/03 1150 119 132/70 06/11 1150 119 132/70 03/03 0813 96 Nasal 2.0L Cannula 03/03 0800 96 Nasal 2.0L Cannula 03/03 0635 97.7 119 18 132/70 96 Nasal 2.0L Cannula 03/03 0000 Nasal 2.0L Cannula 03/02 2300 98.0 116 20 128/68 98 Nasal 2.0L Cannula 03/02 2105 Nasal 2.0L Cannula 03/02 2035 92 Nasal 2.0L Cannula 03/02 2035 98.4 122 20 130/64 92 Nasal 3.0L Cannula Intake & Output 03/03 1600 03/03 0800 03/03 0000 03/02 1600 03/02 0800 03/02 0000 Intake Total 1100 300 880 Output Total 650 Balance 1100 300 230 Intake, Blood 350 Product Intake, IV 300 50 Intake, Oral 800 300 480 Output, Urine 650 Patient 130 lb Weight Weight Reported by Patient Measurement Method Physical Exam: General: WD/ WN female in NAD; alert and oriented x 3 HEENT: NC/AT, PERRL, EOMI Neck: +ve JVD, no carotid bruit Heart: irregularly irregular Lungs: decreased breath sounds bilaterally Abdomen: soft, NT, +ve bowel sounds Extremities: no edema Assessment/Plan Assessment/Plan * This patient is s/p over three weeks of anticoagulation with Xarelto. We will attempt DC cardioversion tomorrow. Keep NPO except medications after midnight. Consult Acknowledgment - Thank you for your consult request.
[2017-03-03 23:00] VITALS: BP 132/70
[2017-03-04 06:22] VITALS: BP 142/82
--- NOTE | 2017-03-04 06:37 | PN- Housestaff ---
See Addendum Subjective Follow-up For: COPD exacerbation Paroxysmal afib with RVR Subjective: Patient seen and examined this morning. Resting comfortably in bed with no acute complaints. She continues to feel much better in terms of breathing and cough. Denies any fever, chills, chest discomfort, palpitations, abdominal pain, nausea , vomiting, headache. Patient and daughter were explained about the need for transfer to cardiology unit for close tele monitoring and they understand. Review of Systems Constitutional: Reports: see HPI. Objective Last 24 Hrs of Vital Signs/I&O Vital Signs Date Time Temp Pulse Resp B/P B/P Pulse O2 O2 Flow FiO2 Mean Ox Delivery Rate 03/04 0937 97.8 114 20 108/62 97 Nasal 2.0L Cannula 03/04 0810 122 140/80 03/04 0800 96 Nasal 2.0L Cannula 03/04 0751 99 Nasal 2.5L Cannula 03/04 0622 98.1 124 20 142/82 95 03/04 0000 Nasal 2.0L Cannula 03/03 2300 97.6 114 20 132/70 96 Nasal 2.0L Cannula 03/03 1608 98 Nasal 2.0L Cannula 03/03 1600 98 Nasal 2.0L Cannula 03/03 1510 98.5 114 18 124/70 98 Nasal 2.0L Cannula 03/03 1150 119 132/70 03/03 1150 119 132/70 Intake & Output 03/04 1600 12 0800 03/04 0000 Intake Total 20 600 Output Total 800 Balance -780 600 Intake, IV 10 Intake, Oral 10 600 Output, Urine 800 Physical Exam General Appearance: Alert, Oriented X3, Cooperative, No Acute Distress Other Physical Findings: Skin No Rashes Skin Temp/Moisture Exam: Warm/Dry HEENT Atraumatic, Mucous Membr. moist/pink Neck Supple, No JVD Cardiovascular Irregularly irregular Lungs Mild Wheezes bilaterally Abdomen Soft, No Tenderness, Positive Bowel Sounds Extremities No Clubbing, No Cyanosis, No Edema Current Medications: Current Medications Sig/Lana Start time Last Medication Dose Route Stop Time Status Admin Acetaminophen 650 MG Q6P PRN 03/02 2230 AC PO Albuterol Sulfate 3 ML EVERY 4 HRS/AWAKE 03/03 0800 AC 03/04 INH 0748 Albuterol Sulfate 3 ML Q4 HRS NEEDED PRN 03/02 2200 AC INH Alprazolam 0.5 MG BID PRN 03/02 2200 AC 03/03 PO 03/09 2159 2116 Amiodarone HCl 200 MG DAILY 03/03 1000 AC 03/04 PO 0810 Ascorbic Acid 1,000 MG DAILY 03/03 1000 AC 03/03 PO 1156 Azithromycin 500 MG DAILY 03/03 1000 DC 03/03 Sodium Chloride 250 ML IV 1139 Budesonide/ 2 PUF BID 03/02 2212 AC 03/04 Formoterol Fumarate INH 0808 Bupropion HCl 150 MG QAM 03/03 1000 AC 03/03 PO 1146 Calcium 600 MG BID 03/03 1000 AC 03/03 PO 2114 Ceftazidime 1,000 MG IQ8 03/03 0000 DC 03/03 IV 1003 Cholecalciferol 400 IU DAILY 03/03 1000 AC 03/03 PO 1155 Ciprofloxacin 500 MG BID 03/03 2200 AC 03/03 PO 03/07 2159 211 Dicyclomine HCl 10 MG TID 03/03 0100 AC 03/03 PO 2114 Diltiazem HCl 180 MG DAILY 03/03 1000 AC 03/04 PO 0810 Docusate Sodium 200 MG QPM 03/03 2200 AC 03/03 PO 2114 Ezetimibe 10 MG DAILY 03/03 1000 AC 03/03 PO 1147 Ferrous Sulfate 325 MG TID 03/03 0100 AC 03/03 PO 2114 Fish Oil 1,050 MG DAILY 03/03 1000 AC 03/03 PO 1143 Folic Acid 1 MG DAILY 03/03 1000 AC 03/03 PO 1149 Furosemide 40 MG BID 03/03 1000 AC 03/03 PO 2114 Guaifenesin 600 MG DAILY 03/03 1000 AC 03/03 PO 1147 Hydromorphone HCl 2 MG Q4P PRN 03/02 2245 AC PO Ibuprofen 600 MG Q6P PRN 03/02 2230 AC PO Levothyroxine Sodium 0.1 MG DAILY AC 03/03 0700 AC 03/04 PO 0600 Losartan Potassium 50 MG DAILY 03/03 1000 AC 03/03 PO 1150 Methylprednisolone 40 MG Q8 03/03 0600 AC 03/04 IV 03/06 2201 0601 Montelukast Sodium 10 MG 2200 03/03 2200 AC 03/03 PO 2114 Nitroglycerin 0.6 MG DAILY 03/03 1000 AC 03/04 TOP 0811 Omeprazole 40 MG DAILY AC 03/03 0700 AC 03/04 PO 0600 Polyethylene Glycol 17 GM DAILY 03/03 1851 AC 03/03 PO 2307 Potassium Chloride 20 MEQ DAILY 03/03 1000 AC 03/03 PO 1148 Pravastatin Sodium 40 MG 1700 03/02 2015 AC 03/03 PO 1618 Rivaroxaban 20 MG DAILY 03/03 1000 AC 03/03 PO 1153 Roflumilast 500 MCG DAILY 03/03 1000 AC 03/03 PO 1618 Sertraline HCl 200 MG DAILY 03/03 1000 AC 03/03 PO 1156 Thiamine HCl 50 MG DAILY 03/03 1000 AC 03/03 PO 1146 Tiotropium [place] 1 PUF DAILY 03/03 1000 AC 03/04 INH 0808 Vitamin E 400 IU DAILY 03/03 1000 AC 03/03 PO 1148 Last 24 Hrs of Lab/Wan Results Last 24 Hrs of Labs/Mics: Laboratory Tests 03/04/17 0758: Anion Gap 7, Estimated GFR > 60, BUN/Creatinine Ratio 32.9 H, Magnesium 1.9, CBC w Diff MAN DIFF ORDERED, RBC 2.93 L, MCV 90.2, MCH 29.4, RDW 17.8 H, MPV 6.6 L, Gran % 95.3 H, Lymphocytes % 2.3 L, Monocytes % 2.4, Eosinophils % 0, Basophils % 0 L, Absolute Granulocytes 23.3 H, Absolute Lymphocytes 0.6 L, Absolute Monocytes 0.6, Absolute Eosinophils 0, Absolute Basophils 0, Platelet Estimate INCREASED, Polychromasia 1+, Anisocytosis 1+, PUBS MCHC 32.6 L Assessment/Plan Assessment: Ms. 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 #Acute on chronic hypoxemic respiratory failure: Likely secondary to COPD exacerbation given worsening cough with sputum production and expiratory wheezes on exam although atrial fibrillation and acute on chronic anemia are possible contributing factors. Although CXR is without any focal consolidation, pneumonia is a possibility given low-grade fevers at home and extensive rhonchi on exam. Although patient has history of chronic diastolic CHF, acute exacerbation is unlikely in the absence of JVD, peripheral edema or pulmonary edema on CXR to suggest volume overload and proBNP 850 which is low for patient. 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 No S/p 125 mg of IV Solumedrol and 1 dose of azithromycin and ceftazidime in the ED. * Pulmonology consulted, appreciate recs * Check sputum Cx - growing GNR and diptheroids * Follow identification and sensitivities of sputum cx * Frinary Strep pneumo and Legionella antigen - negative * TRC and nebs as needed * Provide supplemental oxygen to keep SpO2 >92%. * Cont Solumedrol 40 mg IV Q8H. * Continue Cipro 500mg PO BID * Continue home meds Spiriva 1 puff daily, Symbicort 2 puffs BID, Mucinex 600 mg PO daily and roflumilast 500 mcg PO daily. #Acute on chronic anemia: H/H 7.9/24.8 on admission. Possibly contributing to patient's presenting symptom of shortness of breath. History of iron deficiency anemia felt to be secondary to small bowel AVMs. On admission patient received 1 unt of pRBCs with an appropriate response. * Monitor CBC daily - H/H currently stable * Continue home med folic acid 1 mg PO daily. #Atrial fibrillation: In atrial fibrillation on admission with HR 100s-120s. Has recently reverted to atrial fibrillation on 01/21 after being in normal sinus rhythm for about 5 months following DC cardioversion and dofetilide therapy for rhythm maintenance. * Cardiology following, appreciate recs * Transfer to tele unit for close cardiac monitoring * Keep NPO for possible DC cardioversion today * Repeat EKG per Dr. Naranjo's recommendation * Continue home med Xarelto 20 mg PO daily. * Continue home meds amiodarone 200 mg PO daily and diltiazem 180 mg PO daily. #CAD: No evidence of active CAD. EKG with no ST-T changes. Troponin negative. * Continue home med nitroglycerin 0.6 mg patch. #HTN: * Continue home med losartan 50 mg PO daily. #HLD: * Continue home med fish oil supplement, ezetimibe 10 mg PO daily and pravastatin 40 mg PO daily. #Depression: * Continue home meds Wellbutrin XL 150 mg PO daily and Zoloft 200 mg PO daily. - Diet: Heart Healthy - DVT PPx: Xarelto and ALPs - Pain: Mild - CODE: FULL Problem List: 1. Atrial fibrillation 2. Leukocytosis 3. COPD (chronic obstructive pulmonary disease) 4. Osteoarthritis 5. SIRS (systemic inflammatory response syndrome) Pain Ratin Pain Location: 0 Pain Goal: Remain pain free Pain Plan: Mild pain path Tomorrow's Labs & Rationales: CBC infxn Pain Plan: Mild pain path Tomorrow's Labs & Rationales: CBC infxn
--- NOTE | 2017-03-04 08:12 | PN- Pulmonary ---
Subjective HPI/Critical Care Issues: Shortness of breath is somewhat improved patient is awaiting DC cardioversion Objective Current Medications: Current Medications Sig/Lana Start time Last Medication Dose Route Stop Time Status Admin Acetaminophen 650 MG Q6P PRN 03/02 2230 AC PO Albuterol Sulfate 3 ML EVERY 4 HRS/AWAKE 03/03 0800 AC 03/04 INH 0748 Albuterol Sulfate 3 ML Q4 HRS NEEDED PRN 03/02 2200 AC INH Alprazolam 0.5 MG BID PRN 03/02 2200 AC 03/03 PO 03/09 2159 2116 Amiodarone HCl 200 MG DAILY 03/03 1000 AC 03/03 PO 1150 Ascorbic Acid 1,000 MG DAILY 03/03 1000 AC 03/03 PO 1156 Azithromycin 500 MG DAILY 03/03 1000 DC 03/03 Sodium Chloride 250 ML IV 1139 Budesonide/ 2 PUF BID 03/02 2212 AC 03/03 Formoterol Fumarate INH 2114 Bupropion HCl 150 MG QAM 03/03 1000 AC 03/03 PO 1146 Calcium 600 MG BID 03/03 1000 AC 03/03 PO 2114 Ceftazidime 1,000 MG IQ8 03/03 0000 DC 03/03 IV 1003 Cholecalciferol 400 IU DAILY 03/03 1000 AC 03/03 PO 1155 Ciprofloxacin 500 MG BID 03/03 2200 AC 03/03 PO 03/07 2159 2113 Dicyclomine HCl 10 MG TID 03/03 0100 AC 03/03 PO 2114 Diltiazem HCl 180 MG DAILY 03/03 1000 AC 03/03 PO 1149 Docusate Sodium 200 MG QPM 03/03 2200 AC 03/03 PO 2114 Ezetimibe 10 MG DAILY 03/03 1000 AC 03/03 PO 1147 Ferrous Sulfate 325 MG TID 03/03 0100 AC 03/03 PO 2114 Fish Oil 1,050 MG DAILY 03/03 1000 AC 03/03 PO 1143 Folic Acid 1 MG DAILY 03/03 1000 AC 03/03 PO 1149 Furosemide 40 MG BID 03/03 1000 AC 03/03 PO 2114 Guaifenesin 600 MG DAILY 03/03 1000 AC 03/03 PO 1147 Hydromorphone HCl 2 MG Q4P PRN 03/02 2245 AC PO Ibuprofen 600 MG Q6P PRN 03/02 2230 AC PO Levothyroxine Sodium 0.1 MG DAILY AC 03/03 0700 AC 03/04 PO 0600 Losartan Potassium 50 MG DAILY 03/03 1000 AC 03/03 PO 1150 Methylprednisolone 40 MG Q8 03/03 0600 AC 03/04 IV 03/06 2201 06 Montelukast Sodium 10 MG 2200 03/03 2200 AC 03/03 PO 2114 Nitroglycerin 0.6 MG DAILY 03/03 1000 AC 03/03 TOP 1146 Omeprazole 40 MG DAILY AC 03/03 0700 AC 03/04 PO 0600 Polyethylene Glycol 17 GM DAILY 03/03 1851 AC 03/03 PO 2307 Potassium Chloride 20 MEQ DAILY 03/03 1000 AC 03/03 PO 1148 Pravastatin Sodium 40 MG 1700 03/02 2015 AC 03/03 PO 1618 Rivaroxaban 20 MG DAILY 03/03 1000 AC 03/03 PO 1153 Roflumilast 500 MCG DAILY 03/03 1000 AC 03/03 PO 1618 Sertraline HCl 200 MG DAILY 03/03 1000 AC 03/03 PO 1156 Thiamine HCl 50 MG DAILY 03/03 1000 AC 03/03 PO 1146 Tiotropium [place] 1 PUF DAILY 03/03 1000 AC 03/03 INH 1145 Vitamin E 400 IU DAILY 03/03 1000 AC 03/03 PO 1148 Vital Signs & I&O Last 24 Hrs of Vitals and I&O: Vital Signs Date Time Temp Pulse Resp B/P B/P Pulse O2 O2 Flow FiO2 Mean Ox Delivery Rate 03/04 0751 99 Nasal 2.5L Cannula 03/04 06 98.1 124 20 142/82 95 03/04 0000 Nasal 2.0L Cannula 03/03 2300 97.6 114 20 132/70 96 Nasal 2.0L Cannula 03/03 1608 98 Nasal 2.0L Cannula 03/03 1600 98 Nasal 2.0L Cannula 03/03 1510 98.5 114 18 124/70 98 Nasal 2.0L Cannula 03/03 1150 119 132/70 03/03 1150 119 132/70 03/03 0813 96 Nasal 2.0L Cannula Intake & Output 03/04 1600 03/04 0800 03/04 0000 Intake Total 20 600 Output Total 800 Balance -780 600 Intake, IV 10 Intake, Oral 10 600 Output, Urine 800 Oxygen saturation 2.5 L 99% exam for chest shows scattered expiratory wheezes cardiac exam shows a regular rhythm Impression/Plan Impression/Plan Impression/Plan: 67-year-old woman with atrial fibrillation on anticoagulation comes in with worsening anemia or shortness breath cough productive of yellow sputum and bronchospasm. Note cultures have in the past grown Pseudomonas. Respiratory status appears somewhat improved Recommendations: Taper FiO2 as saturations allow. Consider changing antibiotics to Cipro pending results of sputum C&S. GI evaluation for continued blood loss anemia. Transfuse to baseline hematocrit. Continue IV steroids for now.
[2017-03-04 08:53] LABS: ABSOLUTE BASOPHIL COUNT 0 /CUMM (0.0-0.2); ABSOLUTE EOSINOPHIL COUNT 0 /CUMM (0.0-0.7); ABSOLUTE GRANULOCYTE CT 23.3 /CUMM (1.4-6.5); ABSOLUTE LYMPH COUNT 0.6 /CUMM (1.2-3.4); ABSOLUTE MONOCYTE COUNT 0.6 /CUMM (0.10-0.60); BASOPHIL % 0 % (0.0-2.0); EOSINOPHIL % 0 % (0-5); MEAN CORPUSCULAR HGB CONC 32.6 G/DL (33.0-37.0)
[2017-03-04 09:02] LABS: HEMATOCRIT 26.4 % (37-47); MEAN CORPUSCULAR HGB 29.4 PG (27.0-31.0); MEAN CORPUSCULAR VOLUME 90.2 FL (81.0-99.0); MEAN PLATELET VOLUME 6.6 FL (7.4-10.4); PLATELET COUNT 793 /CUMM (130-400); RBC DISTRIBUTION WIDTH 17.8 % (11.5-14.5); RED BLOOD CELL CT 2.93 /CUMM (4.20-5.40)
--- NOTE | 2017-03-04 09:04 | NUR ---
NURSING NOTE: PT LEFT FLOOR AT 0904 TO BE TRANSFERED TO [facility] FOR MONITORING PRIOR TO CARDIOVERSON TODAY. LAST BP 140/80, PULSE 122. PER [facility] #269 PT DOES NOT NEED TO BE TRANSFERED ON MONITOR, ASIYA STRANGE AWARE. PT TRANSFERED BY TRANSPORT WITH MEDICATIONS. REPORT CALLED TO AG[facility]O AT 0836 THIS AM.
[2017-03-04 09:11] LABS: GRANULOCYTE % 95.3 % (42.2-75.2); WHITE BLOOD CELL COUNT 24.4 /CUMM (4.8-10.8)
[2017-03-04 09:37] VITALS: BP 108/62
--- NOTE | 2017-03-04 11:00 | Transfer of Care Summary ---
Hospital Course Course Hospital Course: Ms. 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 Patient was initially placed under observation on general medicine floor where she was started on Solumedrol with IV antibiotics Fortaz and Zithromax. Her antibiotics were switched to Cipro 500mg PO BID on day 2 of the admission per pulm's recommendation. Patient improved significantly since then. Grain Drier Operator Dr. Naranjo was consulted in the meantime for her atril fibrillation with RVR as her EKG on admission was consistent with Afib with RVR (HR 108). Upon assessment by Dr. Naranjo's recommendation, she was transferred to telemetery for close monitoring in anticipation for possible cardioversion. The following problems were addressed and managed on the GM floor: #Acute on chronic hypoxemic respiratory failure: Likely secondary to COPD exacerbation given worsening cough with sputum production and expiratory wheezes on exam although atrial fibrillation and acute on chronic anemia are possible contributing factors. Although CXR was without any focal consolidation, pneumonia was considered a possibility given low-grade fevers at home and extensive rhonchi on exam. Although patient has history of chronic diastolic CHF , acute exacerbation was deemed unlikely in the absence of JVD, peripheral edema or pulmonary edema on CXR to suggest volume overload and proBNP 850 which is low for patient. 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 She received 125 mg of IV Solumedrol and 1 dose of azithromycin and ceftazidime in the ED. Patient was kept on Solumedrol 40 mg IV Q8H. Her antibiotics were switched to Cipro 500mg PO BID per pulm's recommendation. Sputum cx is growing GNR and diptheroids. Identification and sentivities to be followed. She is currenlty on home meds Spiriva 1 puff daily, Symbicort 2 puffs BID, Mucinex 600 mg PO daily and roflumilast 500 mcg PO daily. #Acute on chronic anemia: H/H 7.9/24.8 on admission. Possibly contributing to patient's presenting symptom of shortness of breath. History of iron deficiency anemia felt to be secondary to small bowel AVMs. Patient received 1 unt of pRBCs with an appropriate response. If her H/H drops again, GI may need be consulted for possible acute blood loss. Stool hemoccult pending as patient hasn't had a bowel movement since the admission. She is kept on her home med folic acid 1 mg PO daily. #Atrial fibrillation: In atrial fibrillation on admission with HR 100s-120s. Has recently reverted to atrial fibrillation on 01/21 after being in normal sinus rhythm for about 5 months following DC cardioversion and dofetilide therapy for rhythm maintenance. She is s/p over three weeks of anticoagulation with Xarelto. Per Dr. Clements' assessment upon this admission, she may need DC cardioversion today for which she remains NPO. She is currently on home meds Xarelto 20 mg PO daily with amiodarone 200 mg PO daily and diltiazem 180 mg PO daily. Repeat EKG was ordered per Dr. Naranjo's recommendation this morning. #CAD: No evidence of active CAD. EKG with no ST-T changes. Troponin negative. She is kept on home med nitroglycerin 0.6 mg patch. #HTN: * Continued [id number] losartan 50 mg PO daily. #HLD: * Continued dzoqu-gu-fxqjbmjic fish oil supplement, ezetimibe 10 mg PO daily and pravastatin 40 mg PO daily. #Depression: * Continued ldkzr-zr-sqakovvpo Wellbutrin XL 150 mg PO daily and Zoloft 200 mg PO daily. Assessment/Plan: See above
--- NOTE | 2017-03-04 13:45 | PN- Cardiology ---
Subjective Subjective: * Breathing is improved although not quite back to baseline. * atrial fibrillation Objective Vital Signs and I&Os Vital Signs Date Time Temp Pulse Resp B/P B/P Pulse O2 O2 Flow FiO2 Mean Ox Delivery Rate 03/04 0937 97.8 114 20 108/62 97 Nasal 2.0L Cannula 03/04 0810 122 140/80 03/04 0800 96 Nasal 2.0L Cannula 03/04 0751 99 Nasal 2.5L Cannula 03/04 0622 98.1 124 20 142/82 95 03/04 0000 Nasal 2.0L Cannula 03/03 2300 97.6 114 20 132/70 96 Nasal 2.0L Cannula 03/03 1608 98 Nasal 2.0L Cannula 03/03 1600 98 Nasal 2.0L Cannula 03/03 1510 98.5 114 18 124/70 98 Nasal 2.0L Cannula Intake & Output 03/04 1600 12 0800 03/04 0000 03/03 1600 03/03 0800 03/03 0000 Intake Total 20 600 1100 300 880 Output Total 800 650 Balance -881 352 6710 300 230 Intake, Blood 350 Product Intake, IV 10 300 50 Intake, Oral 10 600 800 300 480 Output, Urine 800 650 Patient 130 lb Weight Weight Reported by Patient Measurement Method Physical Exam: General: WD/ WN female in NAD; alert and oriented x 3 Neck: +ve JVD, no carotid bruit Heart: irregularly irregular Lungs: decreased breath sounds bilaterally Extremities: no edema Assessment/Plan Assessment/Plan * Cardioversion cannot be done today. It is okay to feed Cynthia. Keep her NPO except for medications overnight as DC cardioversion is planned for tomorrow morning. Continue anticoagulation with Xarelto. Continue telemetry? Yes
[2017-03-04 16:20] VITALS: BP 128/62
[2017-03-05 01:02] VITALS: BP 126/30
--- NOTE | 2017-03-05 07:29 | PN- Housestaff ---
NEHAL KNIGHT MD,AUDRA 03/05/17 0729: Subjective Follow-up For: COPD exacerbation Pseudomonas pneumonia Paroxysmal afib with RVR status post cardioversion Complaints: no complaints Tele-Events Since Last Visit: Patient remained in Atrial fibrillation overnight. Subjective: Patient was comfortably lying in the bed. She did not complain of any chest pain, palpitations or shortness of breath overnight. Review of Systems Constitutional: Denies: chills, fever. EENTM: Denies: visual changes. Cardiovascular: Denies: chest pain, palpitations. Respiratory: Denies: cough, short of breath. Gastrointestinal: Denies: abdominal pain, nausea, vomiting. Genitourinary: Denies: discharge. Objective Last 24 Hrs of Vital Signs/I&O Vital Signs Date Time Temp Pulse Resp B/P B/P Pulse O2 O2 Flow FiO2 Mean Ox Delivery Rate 03/05 1110 81 150/66 03/05 1110 81 150/66 03/05 1040 99 Nasal 2.0L Cannula 03/05 0811 98.5 128 20 124/78 98 Nasal 2.0L Cannula 03/05 0102 98.1 112 20 126/30 98 Nasal Cannula 03/05 0000 Nasal 2.0L Cannula 03/04 1625 99 Nasal 2.0L Cannula 03/04 1620 97.9 122 20 128/62 97 03/04 1600 99 Nasal 2.0L Cannula 03/04 1354 120/60 Intake & Output 03/05 1600 03/05 0800 03/05 0000 Intake Total 480 Output Total 500 790 Balance -500 -310 Intake, IV 30 Intake, Oral 450 Output, Urine 500 790 Physical Exam General Appearance: Alert, Oriented X3, Cooperative, No Acute Distress Skin: No Breakdown HEENT: Atraumatic, PERRLA Neck: No JVD Cardiovascular: Irregularly Irregular Lungs: Mild wheezes bilaterally Abdomen: Normal Bowel Sounds, Soft, No Tenderness Neurological: Normal Speech, Normal Tone, Sensation Intact Extremities: No Cyanosis, No Edema Vascular: Normal Pulses Current Medications: Current Medications Sig/Lana Start time Last Medication Dose Route Stop Time Status Admin Acetaminophen 650 MG Q6P PRN 03/02 2230 AC PO Albuterol Sulfate 3 ML EVERY 4 HRS/AWAKE 03/03 0800 AC 03/05 INH 1039 Albuterol Sulfate 3 ML Q4 HRS NEEDED PRN 06/10 2200 AC INH Alprazolam 0.5 MG BID PRN 03/02 2200 AC 03/04 PO 03/09 2159 2210 Amiodarone HCl 200 MG DAILY 03/03 1000 AC 03/05 PO 1110 Ascorbic Acid 1,000 MG DAILY 03/03 1000 AC 03/05 PO 1111 Budesonide/ 2 PUF BID 03/02 2212 AC 03/05 Formoterol Fumarate INH 1113 Bupropion HCl 150 MG QAM 03/03 1000 AC 03/05 PO 1111 Calcium 600 MG BID 03/03 1000 AC 03/05 PO 1110 Ceftazidime 1,000 MG IQ8 03/04 1615 AC 03/05 IV 1109 Cholecalciferol 400 IU DAILY 03/03 1000 AC 03/05 PO 1111 Ciprofloxacin 500 MG BID 03/03 2200 DC 03/03 PO 03/07 215 2113 Dicyclomine HCl 10 MG TID 03/03 0100 AC 03/05 PO 1110 Diltiazem HCl 180 MG DAILY 03/03 1000 AC 03/05 PO 1110 Docusate Sodium 200 MG QPM 03/03 2200 AC 03/04 PO 2210 Ezetimibe 10 MG DAILY 03/03 1000 AC 03/05 PO 1112 Ferrous Sulfate 325 MG TID 03/03 0100 AC 03/05 PO 1111 Fish Oil 1,050 MG DAILY 03/03 1000 AC 03/05 PO 1108 Folic Acid 1 MG DAILY 03/03 1000 AC 03/05 PO 1111 Furosemide 40 MG BID 03/03 1000 AC 03/05 PO 1111 Guaifenesin 600 MG DAILY 03/03 1000 AC 03/05 PO 1111 Hydromorphone HCl 2 MG Q4P PRN 03/02 2245 AC 03/05 PO 0139 Ibuprofen 600 MG .STK-MED ONE 03/05 0015 DC PO 03/05 0016 Ibuprofen 600 MG Q6P PRN 03/02 2230 AC 03/05 PO 0016 Levothyroxine Sodium 0.1 MG DAILY AC 03/03 0700 AC 03/05 PO 0622 Losartan Potassium 50 MG DAILY 03/03 1000 AC 03/05 PO 1110 Methylprednisolone 40 MG Q8 03/03 0600 AC 03/05 IV 03/06 2201 0622 Montelukast Sodium 10 MG 2200 03/03 2200 AC 03/04 PO 2210 Nitroglycerin 0.6 MG DAILY 03/03 1000 AC 03/05 TOP 1112 Omeprazole 40 MG DAILY AC 03/03 0700 AC 03/05 PO 0621 Polyethylene Glycol 17 GM DAILY 03/03 1851 AC 03/05 PO 1112 Potassium Chloride 20 MEQ DAILY 03/04 1415 AC 03/05 PO 1124 Potassium Chloride 20 MEQ DAILY 03/03 1000 DC 03/03 PO 1148 Pravastatin Sodium 40 MG 1700 03/02 2015 AC 03/04 PO 1656 Rivaroxaban 20 MG DAILY 03/03 1000 AC 03/05 PO 1111 Roflumilast 500 MCG DAILY 03/03 1000 AC 03/05 PO 1109 Sertraline HCl 200 MG DAILY 03/03 1000 AC 03/05 PO 1112 Thiamine HCl 50 MG DAILY 03/03 1000 AC 03/05 PO 1112 Tiotropium [place] 1 PUF DAILY 03/03 1000 AC 03/05 INH 1108 Vitamin E 400 IU DAILY 03/03 1000 AC 03/05 PO 1111 Last 24 Hrs of Lab/Wan Results Last 24 Hrs of Labs/Mics: Laboratory Tests 03/05/17 0706: Anion Gap 10, Estimated GFR > 60, BUN/Creatinine Ratio 33.3 H, CBC w Diff MAN DIFF ORDERED, RBC 3.08 L, MCV 89.4, MCH 28.5, RDW 17.2 H, MPV 6.7 L, Gran % 93.7 H, Lymphocytes % 3.9 L, Monocytes % 2.3, Eosinophils % 0, Basophils % 0.1 , Absolute Granulocytes 24.4 H, Absolute Lymphocytes 1.0 L, Absolute Monocytes 0.6, Absolute Eosinophils 0, Absolute Basophils 0, Platelet Estimate INCREASED, Polychromasia 1+, Hypochromic-Microcytic 1+, Anisocytosis 1+, PUBS MCHC 31.9 L Lines/Diet/Fluids Lines: peripheral lines Restraints: none Assessment/Plan Assessment: Ms. 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 #COPD exacerbation / gram-negative (Pseudomonas )pneumonia Likely patient is experiencing COPD exacerbation given worsening cough with sputum production and expiratory wheezes on exam although atrial fibrillation and acute on chronic anemia can be considered as possible contributing factors. Although CXR is without any focal consolidation, pneumonia is a possibility given low-grade fevers at home and extensive rhonchi on exam. Although patient has history of chronic diastolic CHF, acute exacerbation is unlikely in the absence of JVD, peripheral edema or pulmonary edema on CXR to suggest volume overload and proBNP 850 which is low for patient. 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 Therefore possibility of colonization cannot be excluded. Currently on IV Solumedrol 40 mg every 8 IV Growing( Pseudomonas )GNR and diptheroidS sensitivitie to ceftazidime Strep pneumo and Legionella antigen - negative TRC and nebs as needed Provide supplemental oxygen to keep SpO2 >92%. Cipro 500mg PO was discontinued as the because of interaction with Tikosyn Continue home meds Spiriva 1 puff daily, Symbicort 2 puffs BID, Mucinex 600 mg PO daily and roflumilast 500 mcg PO daily. #Acute on chronic anemia H/H 7.9/24.8 on admission. Possibly contributing to patient's presenting symptom of shortness of breath. History of iron deficiency anemia felt to be secondary to small bowel AVMs. On admission patient received 1 unt of pRBCs with an appropriate response. Monitor CBC daily - H/H currently stable Continue home med folic acid 1 mg PO daily. #Atrial fibrillation Atrial fibrillation on admission with HR 100s-120s. Has recently reverted to atrial fibrillation on 01/21 after being in normal sinus rhythm for about 5 months following DC cardioversion and dofetilide therapy for rhythm maintenance. Patient was transferred to tele unit for close cardiac monitoring. DC cardioversion today. Continue home med Xarelto 20 mg PO daily. Continue home meds amiodarone 200 mg PO daily and diltiazem 180 mg PO daily. #CAD No evidence of active CAD. EKG with no ST-T changes. Troponin negative. Continue home med nitroglycerin 0.6 mg patch. #HTN Continue home med losartan 50 mg PO daily. #HLD Continue home med fish oil supplement, ezetimibe 10 mg PO daily and pravastatin 40 mg PO daily. #Depression Continue home meds Wellbutrin XL 150 mg PO daily and Zoloft 200 mg PO daily. Patient is currently in heart healthy diet Patient is on DVT prophylaxis with Xarelto Patient is on pain pathway Patient is full code Problem List: 1. Bacterial pneumonia 2. COPD exacerbation 3. COPD (chronic obstructive pulmonary disease) Pain Ratin Pain Location: NA Pain Goal: Pain 4 or less Pain Plan: Pain Management Tomorrow's Labs & Rationales: CBC for hemosiderosis BEP for hyponatremia DVT/Prophylaxis: pharmacological NARCISA TOMAS MD 03/05/17 1520: Attending MD Review Statement Attending Statement Attending MD Statement: examined this patient, discuss w/resident/PA/EYEGLASS CUTTER, agreed w/resident/PA/EYEGLASS CUTTER, reviewed EMR data (avail), discussed with nursing, discussed with case mgmt, amended to note Attending Assessment/Plan: Patient seen and examined. Resting comfortably and not in any acute distress underwent cardioversion today and remains in normal sinus rhythm. Denies chest pain or shortness of breath. Reports nonproductive cough. Sputum cultures currently growing Pseudomonas and diphtheroids. Case discussed with mountain guide Dr [place]. Ciprofloxacin was discontinued due to its interaction with Tikosyn. She is currently on IV ceftaz. If she remains hemodynamically stable tomorrow and examined today and she may be discharged home. We'll follow -up with the pulmonary service for antibiotic recommendations. Her hemoglobin level has been stable overnight. She remains on anticoagulation. She will follow-up with the GI service as an outpatient and she shows no overt evidence of bleeding here in the hospital. She has no bright red blood per rectum. She is yet to have her capsule endoscopy done as an outpatient
[2017-03-05 08:11] VITALS: BP 124/78
[2017-03-05 08:43] LABS: ABSOLUTE BASOPHIL COUNT 0 /CUMM (0.0-0.2); ABSOLUTE EOSINOPHIL COUNT 0 /CUMM (0.0-0.7); ABSOLUTE GRANULOCYTE CT 24.4 /CUMM (1.4-6.5); ABSOLUTE MONOCYTE COUNT 0.6 /CUMM (0.10-0.60); BASOPHIL % 0.1 % (0.0-2.0); EOSINOPHIL % 0 % (0-5); GRANULOCYTE % 93.7 % (42.2-75.2); HEMATOCRIT 27.5 % (37-47); MEAN CORPUSCULAR HGB 28.5 PG (27.0-31.0); MEAN CORPUSCULAR HGB CONC 31.9 G/DL (33.0-37.0); MEAN CORPUSCULAR VOLUME 89.4 FL (81.0-99.0); MEAN PLATELET VOLUME 6.7 FL (7.4-10.4); PLATELET COUNT 939 /CUMM (130-400); RBC DISTRIBUTION WIDTH 17.2 % (11.5-14.5); RED BLOOD CELL CT 3.08 /CUMM (4.20-5.40)
--- NOTE | 2017-03-05 09:58 | PN- Cardiology ---
Subjective Subjective: * Breathing is improved. * Patient is now s/p a DC cardioversion. Objective Vital Signs and I&Os Vital Signs Date Time Temp Pulse Resp B/P B/P Pulse O2 O2 Flow FiO2 Mean Ox Delivery Rate 03/05 0811 98.5 128 20 124/78 98 Nasal 2.0L Cannula 03/05 0102 98.1 112 20 126/30 98 Nasal Cannula 03/05 0000 Nasal 2.0L Cannula 03/04 1625 99 Nasal 2.0L Cannula 03/04 1620 97.9 122 20 128/62 97 03/04 1600 99 Nasal 2.0L Cannula 03/04 1354 120/60 03/04 1000 97 Nasal 2.0L Cannula Intake & Output 03/05 1600 03/05 0800 03/05 0000 03/04 1600 03/04 0800 03/04 0000 Intake Total 480 510 20 600 Output Total 500 790 800 Balance -500 -310 510 -780 600 Intake, IV 30 10 10 Intake, Oral 450 500 10 600 Output, Urine 500 790 800 Physical Exam: General: WD/ WN female in NAD; alert and oriented x 3 Neck: +ve JVD, no carotid bruit Heart: RRR Lungs: decreased breath sounds bilaterally Extremities: no edema Assessment/Plan Assessment/Plan * Cardioversion done with return of NSR. Begin Dofetilide at 250mg BID. Continue Xarelto for stroke prophylaxis. Continue telemetry? Yes
[2017-03-05 15:30] VITALS: BP 126/68
[2017-03-06 00:30] VITALS: BP 138/60
--- NOTE | 2017-03-06 08:05 | PN- Pulmonary ---
Subjective HPI/Critical Care Issues: Patient feels improved now that she is in sinus rhythm her sputum is now white to clear sputum culture showed few white cells suggesting Pseudomonas is more colonizing her airway thancausing acute infection Objective Current Medications: Current Medications Sig/Lana Start time Last Medication Dose Route Stop Time Status Admin Acetaminophen 650 MG Q6P PRN 03/02 2230 AC PO Albuterol Sulfate 3 ML EVERY 4 HRS/AWAKE 03/03 0800 AC 03/06 INH 0731 Albuterol Sulfate 3 ML Q4 HRS NEEDED PRN 03/02 2200 AC INH Alprazolam 0.5 MG BID PRN 03/02 2200 AC 03/05 PO 03/09 2159 2131 Amiodarone HCl 200 MG DAILY 03/03 1000 AC 03/05 PO 1110 Ascorbic Acid 1,000 MG DAILY 03/03 1000 AC 03/05 PO 1111 Budesonide/ 2 PUF BID 03/02 2212 AC 03/05 Formoterol Fumarate INH 2131 Bupropion HCl 150 MG QAM 03/03 1000 AC 03/05 PO 1111 Calcium 600 MG BID 03/03 1000 AC 03/05 PO 2131 Ceftazidime 1,000 MG IQ8 03/04 1615 AC 03/06 IV 0000 Cholecalciferol 400 IU DAILY 03/03 1000 AC 03/05 PO 1111 Dicyclomine HCl 10 MG TID 03/03 0100 AC 03/05 PO 2131 Diltiazem HCl 180 MG DAILY 03/03 1000 AC 03/05 PO 1110 Docusate Sodium 200 MG QPM 03/03 2200 AC 03/04 PO 2210 Dofetilide 250 MCG BID 03/05 2200 DC PO Dofetilide 250 MCG BID 03/05 1500 AC 03/05 PO 1815 Ezetimibe 10 MG DAILY 03/03 1000 AC 03/05 PO 1112 Ferrous Sulfate 325 MG TID 03/03 0100 AC 03/05 PO 2131 Fish Oil 1,050 MG DAILY 03/03 1000 AC 03/05 PO 1108 Folic Acid 1 MG DAILY 03/03 1000 AC 03/05 PO 1111 Furosemide 40 MG 0600,1800 03/06 0740 AC PO Furosemide 40 MG BID 03/03 1000 DC 03/05 PO 2131 Guaifenesin 600 MG DAILY 03/03 1000 AC 03/05 PO 1111 Hydromorphone HCl 2 MG Q4P PRN 03/02 2245 AC 03/05 PO 2137 Ibuprofen 600 MG Q6P PRN 03/02 2230 AC 03/05 PO 0016 Levothyroxine Sodium 0.1 MG DAILY AC 03/03 0700 AC 03/06 PO 0648 Losartan Potassium 50 MG DAILY 03/03 1000 AC 03/05 PO 1110 Melatonin 5 MG AT BEDTIME 03/06 2200 AC PO Methylprednisolone 40 MG Q8 03/03 06 AC 03/06 IV 03/06 2201 0600 Montelukast Sodium 10 MG 2200 03/03 2200 AC 03/05 PO 2134 Nitroglycerin 0.6 MG DAILY 03/03 1000 AC 03/05 TOP 1112 Omeprazole 40 MG DAILY AC 03/03 0700 AC 03/06 PO 0648 Patient Medication 1 ED .ST-MED ONE 03/05 1424 SD Teaching ED 03/05 1425 Polyethylene Glycol 17 GM DAILY 03/03 1851 AC 03/05 PO 1112 Potassium Chloride 20 MEQ DAILY 03/04 1415 AC 03/05 PO 1124 Pravastatin Sodium 40 MG 1700 03/02 2015 AC 03/05 PO 1640 Rivaroxaban 20 MG DAILY 03/03 1000 AC 03/05 PO 1111 Roflumilast 500 MCG DAILY 03/03 1000 AC 03/05 PO 1109 Sertraline HCl 200 MG DAILY 03/03 1000 AC 03/05 PO 1112 Thiamine HCl 50 MG DAILY 03/03 1000 AC 03/05 PO 1112 Tiotropium [place] 1 PUF DAILY 03/03 1000 AC 03/05 INH 1108 Vitamin E 400 IU DAILY 03/03 1000 AC 03/05 PO 1111 Vital Signs & I&O Last 24 Hrs of Vitals and I&O: Vital Signs Date Time Temp Pulse Resp B/P B/P Pulse O2 O2 Flow FiO2 Mean Ox Delivery Rate 03/06 0030 97.8 81 81 138/60 96 03/06 0000 Nasal 2.0L Cannula 03/05 1600 99 Nasal 2.0L Cannula 03/05 1600 99 Nasal 2.0L Cannula 03/05 1530 98.6 95 16 126/68 98 Nasal 2.0L Cannula 03/05 1110 81 150/66 03/05 1110 81 150/66 03/05 1040 99 Nasal 2.0L Cannula 03/05 0811 98.5 128 20 124/78 98 Nasal 2.0L Cannula Intake & Output 03/06 1600 03/06 0800 03/06 0000 Intake Total 350 Output Total Balance 350 Intake, IV 60 Intake, Oral 290 Impression/Plan Impression/Plan Impression/Plan: 67-year-old woman with atrial fibrillation on anticoagulation comes in with worsening anemia or shortness breath cough productive of yellow sputum and bronchospasm. Note cultures have in the past grown Pseudomonas. Respiratory status appears somewhat improved. Would DC antibiotics at the time of discharge as positive sputum Pseudomonas likely reflects colonization as there were a few white cells on Gram stain. Recommendations: Taper FiO2 as saturations allow. DC antibiotics at time of discharge. Outpatient follow-up after discharge. Continue steroid taper
[2017-03-06 08:15] VITALS: BP 150/66
[2017-03-06 08:22] LABS: ABSOLUTE BASOPHIL COUNT 0 /CUMM (0.0-0.2); ABSOLUTE EOSINOPHIL COUNT 0.2 /CUMM (0.0-0.7); ABSOLUTE GRANULOCYTE CT 19.2 /CUMM (1.4-6.5); ABSOLUTE LYMPH COUNT 1.1 /CUMM (1.2-3.4); BASOPHIL % 0 % (0.0-2.0); EOSINOPHIL % 0.9 % (0-5); GRANULOCYTE % 89.5 % (42.2-75.2); HEMATOCRIT 26.7 % (37-47); MEAN CORPUSCULAR HGB 29.2 PG (27.0-31.0); MEAN CORPUSCULAR HGB CONC 32.6 G/DL (33.0-37.0); MEAN CORPUSCULAR VOLUME 89.7 FL (81.0-99.0); MEAN PLATELET VOLUME 6.6 FL (7.4-10.4); PLATELET COUNT 878 /CUMM (130-400); RBC DISTRIBUTION WIDTH 16.7 % (11.5-14.5); RED BLOOD CELL CT 2.97 /CUMM (4.20-5.40); WHITE BLOOD CELL COUNT 21.5 /CUMM (4.8-10.8)
--- NOTE | 2017-03-06 09:00 | PN- Housestaff ---
See Addendum Subjective Follow-up For: COPD exacerbation Pseudomonas pneumonia Paroxysmal afib with RVR status post cardioversion Complaints: no complaints Tele-Events Since Last Visit: Patient is maintaining sinus rhythm. Heart rate in 70s to 80s Subjective: Patient was comfortably lying in the bed. Feels better than yesterday. She did not complain of any acute chest pain, palpitations or shortness of breath overnight. Review of Systems Constitutional: Denies: chills, fever. EENTM: Denies: visual changes. Cardiovascular: Denies: chest pain, palpitations. Respiratory: Reports: cough. Denies: short of breath. Gastrointestinal: Denies: abdominal pain, nausea, vomiting. Genitourinary: Denies: dysuria. Musculoskeletal: Denies: back pain. Objective Last 24 Hrs of Vital Signs/I&O Vital Signs Date Time Temp Pulse Resp B/P B/P Pulse O2 O2 Flow FiO2 Mean Ox Delivery Rate 03/06 0948 98.3 74 140/60 03/06 0947 74 140/60 03/06 0815 98.3 78 20 150/66 97 Nasal 2.0L Cannula 03/06 0804 96 Nasal 2.0L Cannula 03/06 0030 97.8 81 81 138/60 96 03/06 0000 Nasal 2.0L Cannula 03/05 1600 99 Nasal 2.0L Cannula 03/05 1600 99 Nasal 2.0L Cannula 03/05 1530 98.6 95 16 126/68 98 Nasal 2.0L Cannula Intake & Output 03/06 1600 03/06 0800 03/06 0000 Intake Total 100 350 Output Total Balance 100 350 Intake, IV 60 Intake, Oral 100 290 Physical Exam General Appearance: Alert, Oriented X3, Cooperative, No Acute Distress HEENT: Atraumatic Neck: No JVD Cardiovascular: Regular Rate, Normal S1, Normal S2 Lungs: mild wheezes bilaterally on lung examination Abdomen: Normal Bowel Sounds, Soft, No Tenderness Extremities: No Edema Lines/Diet/Fluids Lines: peripheral lines Restraints: none Assessment/Plan Assessment: Ms. 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 #COPD exacerbation / gram-negative (Pseudomonas )pneumonia Likely patient is experiencing COPD exacerbation given worsening cough with sputum production and expiratory wheezes on exam although atrial fibrillation and acute on chronic anemia can be considered as possible contributing factors. Although CXR is without any focal consolidation, pneumonia is a possibility given low-grade fevers at home and extensive rhonchi on exam. Although patient has history of chronic diastolic CHF, acute exacerbation is unlikely in the absence of JVD, peripheral edema or pulmonary edema on CXR to suggest volume overload and proBNP 850 which is low for patient. 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 Therefore possibility of colonization cannot be excluded. Currently on IV Solumedrol 40 mg every 12 HOURS IV Growing( Pseudomonas )GNR and diptheroidS sensitivitie to ceftazidime Strep pneumo and Legionella antigen - negative TRC and nebs as needed Provide supplemental oxygen to keep SpO2 >92%. Cipro 500mg PO was discontinued as the because of interaction with Tikosyn Continue with ceftazidime for Pseudomonas pneumonia Continue home meds Spiriva 1 puff daily, Symbicort 2 puffs BID, Mucinex 600 mg PO daily and roflumilast 500 mcg PO daily. #Acute on chronic anemia H/H 7.9/24.8 on admission. Possibly contributing to patient's presenting symptom of shortness of breath. History of iron deficiency anemia felt to be secondary to small bowel AVMs. On admission patient received 1 unt of pRBCs with an appropriate response. Monitor CBC daily - H/H currently stable Continue home med folic acid 1 mg PO daily. #Atrial fibrillation Atrial fibrillation on admission with HR 100s-120s. Has recently reverted to atrial fibrillation on 01/21 after being in normal sinus rhythm for about 5 months following DC cardioversion and dofetilide therapy for rhythm maintenance. Patient was transferred to tele unit for close cardiac monitoring. Status post DC cardioversion YESTERDAY. Continue home med Xarelto 20 mg PO daily. Continue home meds amiodarone 200 mg PO daily and diltiazem 180 mg PO daily. #CAD No evidence of active CAD. EKG with no ST-T changes. Troponin negative. Continue home med nitroglycerin 0.6 mg patch. #HTN Continue home med losartan 50 mg PO daily. #HLD Continue home med fish oil supplement, ezetimibe 10 mg PO daily and pravastatin 40 mg PO daily. #Depression Continue home meds Wellbutrin XL 150 mg PO daily and Zoloft 200 mg PO daily. Patient is currently in heart healthy diet Patient is on DVT prophylaxis with Xarelto Patient is on pain pathway Patient is full code Problem List: 1. COPD 2. Bacterial pneumonia 3. Atrial fibrillation Pain Ratin Pain Location: NA Pain Goal: Pain 4 or less Pain Plan: Continue current pain management Tomorrow's Labs & Rationales: CBC for Leukocytosis BEP to monitor renal function DVT/Prophylaxis: pharmacological
[2017-03-06 15:30] VITALS: BP 122/58
--- NOTE | 2017-03-06 19:04 | PN- Cardiology ---
Subjective Subjective: * Breathing is improved but not quite to baseline. * Patient is off telemetry but heart rhythm is even suggestive of sinus Objective Vital Signs and I&Os Vital Signs Date Time Temp Pulse Resp B/P B/P Pulse O2 O2 Flow FiO2 Mean Ox Delivery Rate 03/06 1609 98 Nasal 2.0L Cannula 03/06 1600 99 Nasal 2.0L Cannula 03/06 1530 98.0 71 16 122/58 97 Room Air 03/06 0948 98.3 74 140/60 03/06 0947 74 140/60 03/06 0815 98.3 78 20 150/66 97 Nasal 2.0L Cannula 03/06 0804 96 Nasal 2.0L Cannula 03/06 0800 97 Nasal 2.0L Cannula 03/06 0030 97.8 81 81 138/60 96 03/06 0000 Nasal 2.0L Cannula Intake & Output 03/06 1600 03/06 0800 03/06 0000 03/05 1600 03/05 0800 03/05 0000 Intake Total 480 100 350 600 480 Output Total 500 790 Balance 480 100 350 600 -500 -310 Intake, IV 60 30 Intake, Oral 480 100 290 600 450 Output, Urine 500 790 Physical Exam: General: WD/ WN female in NAD; alert and oriented x 3 Neck: +ve JVD, no carotid bruit Heart: RRR Lungs: decreased breath sounds bilaterally Extremities: no edema Assessment/Plan Assessment/Plan * Cardioversion done with return of NSR. Continue Dofetilide at 250mg BID. Continue Xarelto for stroke prophylaxis. Restart telemetry while patient is loading with Dofetilide as this medication is very pro-arrhythmic. Continue telemetry? Yes
[2017-03-07 00:17] VITALS: BP 137/62
--- NOTE | 2017-03-07 07:39 | PN- Housestaff ---
NEHAL KNIGHT MD,[facility] 03/07/17 0739: Subjective Follow-up For: COPD exacerbation Pseudomonas colonization Paroxysmal afib with RVR status post cardioversion Complaints: no complaints Tele-Events Since Last Visit: Patient is in sinus rhythm, heart rate in 60s to 70s Subjective: Patient was comfortably lying in the bed. Feels same as yesterday. She did not complain of any acute chest pain, palpitations or shortness of breath overnight. Review of Systems Constitutional: Denies: chills, fever. Cardiovascular: Denies: chest pain, palpitations. Respiratory: Reports: cough, short of breath. Gastrointestinal: Denies: abdominal pain, nausea, vomiting. Objective Last 24 Hrs of Vital Signs/I&O Vital Signs Date Time Temp Pulse Resp B/P B/P Pulse O2 O2 Flow FiO2 Mean Ox Delivery Rate 03/07 0954 66 150/62 03/07 0954 66 150/62 03/07 0824 97.9 66 18 150/62 98 Nasal 2.0L Cannula 03/07 0802 98 Nasal 2.0L Cannula 03/07 0800 Nasal 2.0L Cannula 03/07 0322 98 Nasal 2.0L Cannula 03/07 0017 98.5 72 18 137/62 97 06 0000 94 Nasal 2.0L Cannula 03/06 1609 98 Nasal 2.0L Cannula 03/06 1600 99 Nasal 2.0L Cannula 03/06 1530 98.0 71 16 122/58 97 Room Air Intake & Output 03/07 1600 03/07 0800 03/07 0000 Intake Total 240 440 Output Total Balance 240 440 Intake, IV 50 Intake, Oral 240 390 Physical Exam General Appearance: Alert, Oriented X3, Cooperative, No Acute Distress HEENT: Atraumatic Neck: No JVD Cardiovascular: Regular Rate, Normal S1, Normal S2 Lungs: mild wheezes bilaterally on lung examination Abdomen: Normal Bowel Sounds, Soft, No Tenderness Neurological: Normal Speech, Normal Tone, Sensation Intact Extremities: No Edema Current Medications: Current Medications Sig/Lana Start time Last Medication Dose Route Stop Time Status Admin Acetaminophen 650 MG Q6P PRN 03/02 2230 AC PO Albuterol Sulfate 3 ML EVERY 4 HRS/AWAKE 03/03 0800 AC 03/07 INH 1136 Albuterol Sulfate 3 ML Q4 HRS NEEDED PRN 03/02 2200 AC INH Alprazolam 0.5 MG BID PRN 03/02 2200 AC 03/07 PO 03/09 2159 0952 Amiodarone HCl 200 MG DAILY 03/03 1000 AC 03/07 PO 0954 Ascorbic Acid 1,000 MG DAILY 03/03 1000 AC 03/07 PO 0955 Budesonide/ 2 PUF BID 03/02 2212 AC 03/07 Formoterol Fumarate INH 0957 Bupropion HCl 150 MG QAM 03/03 1000 AC 03/07 PO 0956 Calcium 600 MG BID 03/03 1000 AC 03/07 PO 0954 Ceftazidime 1,000 MG IQ8 03/04 1615 AC 03/07 IV 0949 Cholecalciferol 400 IU DAILY 03/03 1000 AC 03/07 PO 0956 Dicyclomine HCl 10 MG TID 03/03 0100 AC 03/07 PO 0954 Diltiazem HCl 180 MG DAILY 03/03 1000 AC 03/07 PO 0954 Docusate Sodium 200 MG QPM 03/03 2200 AC 03/06 PO 2233 Dofetilide 250 MCG BID 03/05 1500 AC 03/07 PO 0953 Ezetimibe 10 MG DAILY 03/03 1000 AC 03/07 PO 0956 Ferrous Sulfate 325 MG TID 03/03 0100 AC 03/07 PO 0954 Fish Oil 1,050 MG DAILY 03/03 1000 AC 03/07 PO 0952 Folic Acid 1 MG DAILY 03/03 1000 AC 03/07 PO 0958 Furosemide 40 MG 0600,1800 03/06 0740 AC 03/07 PO 0619 Guaifenesin 600 MG DAILY 03/03 1000 AC 03/07 PO 0955 Hydromorphone HCl 2 MG .STK-MED ONE 03/06 1741 DC PO 03/06 1742 Hydromorphone HCl 2 MG Q4P PRN 03/02 2245 AC 03/07 PO 0952 Ibuprofen 600 MG Q6P PRN 03/02 2230 AC 03/05 PO 0016 Levothyroxine Sodium 0.1 MG DAILY AC 03/03 0700 AC 03/07 PO 0619 Lidocaine 1 PAT DAILY 03/06 1829 AC 03/07 EXT 0958 Losartan Potassium 50 MG DAILY 03/03 1000 AC 03/07 PO 0954 Melatonin 5 MG AT BEDTIME 03/06 2200 AC 03/06 PO 2233 Methylprednisolone 40 MG Q12 03/06 2200 DC 03/06 IV 03/07 1001 2234 Montelukast Sodium 10 MG 2200 03/03 2200 AC 03/06 PO 2233 Nitroglycerin 0.6 MG DAILY 03/03 1000 AC 03/07 TOP 0953 Omeprazole 40 MG DAILY AC 03/03 0700 AC 03/07 PO 0619 Patient Medication 1 ED .STK-MED ONE 03/07 1357 [facility] ED 03/07 1358 Patient Medication 1 ED .STK-MED ONE 03/06 1412 [facility] ED 03/06 1413 Polyethylene Glycol 17 GM DAILY 03/03 1851 AC 03/05 PO 1112 Potassium Chloride 20 MEQ DAILY 03/04 1415 AC 03/07 PO 0955 Pravastatin Sodium 40 MG 1700 03/02 2015 AC 03/06 PO 1730 Prednisone 40 MG DAILY 03/07 1000 AC 03/07 PO 1126 Rivaroxaban 20 MG DAILY 03/03 1000 AC 03/07 PO 0956 Roflumilast 500 MCG DAILY 03/03 1000 AC 03/07 PO 0952 Sertraline HCl 200 MG DAILY 03/03 1000 AC 03/07 PO 0957 Thiamine HCl 50 MG DAILY 03/03 1000 AC 03/07 PO 0956 Tiotropium [place] 1 PUF DAILY 03/03 1000 AC 03/07 INH 0951 Vitamin E 400 IU DAILY 03/03 1000 AC 03/07 PO 0956 Last 24 Hrs of Lab/Wan Results Last 24 Hrs of Labs/Mics: Laboratory Tests 03/07/17 0647: Anion Gap 9, Estimated GFR > 60, BUN/Creatinine Ratio 43.8 H, CBC w Diff MAN DIFF ORDERED, RBC 2.97 L, MCV 90.3, MCH 28.9, RDW 16.3 H, MPV 6.6 L, Gran % 92.5 H, Lymphocytes % 4.3 L, Monocytes % 3.2, Eosinophils % 0, Basophils % 0 L, Absolute Granulocytes 17.1 H, Segmented Neutrophils 82 H, Absolute Lymphocytes 0.8 L, Lymphocytes 9 L, Monocytes 5, Absolute Monocytes 0.6, Absolute Eosinophils 0, Absolute Basophils 0, Metamyelocytes 1, Myelocytes 3 H, Platelet Estimate INCREASED, Polychromasia 2+, Hypochromic-Microcytic 2+, Poikilocytosis 1+, Anisocytosis 1+, PUBS MCHC 32.0 L Assessment/Plan Assessment: Ms. 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 Although CXR is without any focal consolidation, pneumonia is a possibility given low-grade fevers at home and extensive rhonchi on exam but was ruled out during the hospital admission. Although patient has history of chronic diastolic CHF, acute exacerbation is unlikely in the absence of JVD, peripheral edema or pulmonary edema on CXR to suggest volume overload and proBNP 850 which is low for patient. 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 Therefore possibility of colonization cannot be excluded. Currently on by mouth steroids Growing( Pseudomonas )GNR and diptheroidS sensitivitie to ceftazidime Strep pneumo and Legionella antigen - negative TRC and nebs as needed Provide supplemental oxygen to keep SpO2 >92%. Cipro 500mg PO was discontinued as the because of interaction with Tikosyn Continue with ceftazidime Continue home meds Spiriva 1 puff daily, Symbicort 2 puffs BID, Mucinex 600 mg PO daily and roflumilast 500 mcg PO daily. #Acute on chronic anemia H/H 7.9/24.8 on admission. Possibly contributing to patient's presenting symptom of shortness of breath. History of iron deficiency anemia felt to be secondary to small bowel AVMs. On admission patient received 1 unt of pRBCs with an appropriate response. Monitor CBC daily - H/H currently stable Continue home med folic acid 1 mg PO daily. #Atrial fibrillation Atrial fibrillation on admission with HR 100s-120s. Has recently reverted to atrial fibrillation on 01/21 after being in normal sinus rhythm for about 5 months following DC cardioversion and dofetilide therapy for rhythm maintenance. Patient was transferred to tele unit for close cardiac monitoring. Status post DC cardioversion. Continue home med Xarelto 20 mg PO daily. Continue home meds amiodarone 200 mg PO daily and diltiazem 180 mg PO daily. #CAD No evidence of active CAD. EKG with no ST-T changes. Troponin negative. Continue home med nitroglycerin 0.6 mg patch. #HTN Continue home med losartan 50 mg PO daily. #HLD Continue home med fish oil supplement, ezetimibe 10 mg PO daily and pravastatin 40 mg PO daily. #Depression Continue home meds Wellbutrin XL 150 mg PO daily and Zoloft 200 mg PO daily. Patient is currently in heart healthy diet Patient is on DVT prophylaxis with Xarelto Patient is on pain pathway Patient is full code Problem List: 1. COPD Pain Ratin Pain Location: NA Pain Goal: Pain 4 or less Pain Plan: Continue with pain management Tomorrow's Labs & Rationales: CBC for leukocytosis BEP for hyponatremia DVT/Prophylaxis: pharmacological NARCISA TOMAS MD 03/07/17 0741: Attending MD Review Statement Attending Statement Attending MD Statement: examined this patient, discuss w/resident/PA/BALLROOM DANCE INSTRUCTOR, agreed w/resident/PA/B[employer]RO[employer] DANCE INSTRUCTOR, reviewed EMR data (avail), discussed with nursing, discussed with case mgmt, amended to note Attending Assessment/Plan: Patient seen and examined. Lying in bed and not in acute distress. No issues overnight. No events on telemetry. She remains in sinus rhythm. She reports that she has been ambulating around the nursing unit. She stated that she was able to relate more during the afternoon yesterday. She continues to complain of a cough productive of clear phlegm. She remains afebrile. On examination heart sounds are regular. She has adequate air entry bilaterally with mild rhonchi. She has no evidence of volume overload. Problems: 1. COPD exacerbation 2. Pseudomonas colonization; no evidence of pneumonia on chest x-ray. Afebrile. 3. Atrial Fibrillation; s/p cardioversion 4. Chronic Anemia Plan: -Continue bronchodilator therapy. Continue prednisone taper. -Follow-up with the pulmonary service for duration of IV ceftaz which she is on for her Pseudomonas colonization. She is unable to be placed on an oral fluoroquinolone due to interaction with her antiarrhythmic medication. -Cardiology service is recommending continued telemetry monitoring. Will follow -up regarding need for outpatient Holter monitoring upon discharge. -Further disposition to be determined after evaluation by the cardiology and pulmonology service.
--- NOTE | 2017-03-07 08:01 | PN- Pulmonary ---
Subjective HPI/Critical Care Issues: Patient feels well less congested Objective Current Medications: Current Medications Sig/Lana Start time Last Medication Dose Route Stop Time Status Admin Acetaminophen 650 MG Q6P PRN 03/02 2230 AC PO Albuterol Sulfate 3 ML EVERY 4 HRS/AWAKE 03/03 0800 AC 03/07 INH 0311 Albuterol Sulfate 3 ML Q4 HRS NEEDED PRN 03/02 2200 AC INH Alprazolam 0.5 MG BID PRN 03/02 2200 AC 03/06 PO 03/09 2159 2234 Amiodarone HCl 200 MG DAILY 03/03 1000 AC 03/06 PO 0947 Ascorbic Acid 1,000 MG DAILY 03/03 1000 AC 03/06 PO 0947 Budesonide/ 2 PUF BID 03/02 2212 AC 03/06 Formoterol Fumarate INH 2239 Bupropion HCl 150 MG QAM 03/03 1000 AC 03/06 PO 0947 Calcium 600 MG BID 03/03 1000 AC 03/06 PO 2233 Ceftazidime 1,000 MG IQ8 03/04 1615 AC 03/07 IV 0042 Cholecalciferol 400 IU DAILY 03/03 1000 AC 03/06 PO 0947 Dicyclomine HCl 10 MG TID 03/03 0100 AC 03/06 PO 2233 Diltiazem HCl 180 MG DAILY 03/03 1000 AC 03/06 PO 0948 Docusate Sodium 200 MG QPM 03/03 2200 AC 03/06 PO 2233 Dofetilide 250 MCG BID 03/05 1500 AC 03/06 PO 2234 Ezetimibe 10 MG DAILY 03/03 1000 AC 03/06 PO 0947 Ferrous Sulfate 325 MG TID 03/03 0100 AC 03/06 PO 2233 Fish Oil 1,050 MG DAILY 03/03 1000 AC 03/06 PO 0948 Folic Acid 1 MG DAILY 03/03 1000 AC 03/06 PO 0948 Furosemide 40 MG 0600,1800 03/06 0740 AC 03/07 PO 0619 Guaifenesin 600 MG DAILY 03/03 1000 AC 03/06 PO 0948 Hydromorphone HCl 2 MG .STK-MED ONE 03/06 1741 DC PO 03/06 1742 Hydromorphone HCl 2 MG Q4P PRN 03/02 2245 AC 03/07 PO 0301 Ibuprofen 600 MG Q6P PRN 03/02 2230 AC 03/05 PO 0016 Levothyroxine Sodium 0.1 MG DAILY AC 03/03 0700 AC 03/07 PO 0619 Lidocaine 1 PAT DAILY 03/06 1829 AC EXT Losartan Potassium 50 MG DAILY 03/03 1000 AC 03/06 PO 0948 Melatonin 5 MG AT BEDTIME 03/06 2200 AC 03/06 PO 2233 Methylprednisolone 40 MG Q12 03/06 2200 AC 03/06 IV 03/07 1001 2234 Methylprednisolone 40 MG Q8 03/03 0600 DC 03/06 IV 03/06 2201 0600 Montelukast Sodium 10 MG 2200 03/03 2200 AC 03/06 PO 2233 Nitroglycerin 0.6 MG DAILY 03/03 1000 AC 03/06 TOP 0948 Omeprazole 40 MG DAILY AC 03/03 0700 AC 03/07 PO 0619 Patient Medication 1 ED .STK-MED ONE 03/06 1412 [facility] 03/06 1413 Polyethylene Glycol 17 GM DAILY 03/03 1851 AC 03/05 PO 1112 Potassium Chloride 20 MEQ DAILY 03/04 1415 AC 03/06 PO 0948 Pravastatin Sodium 40 MG 1700 03/02 2015 AC 03/06 PO 1730 Prednisone 40 MG DAILY 03/07 1000 AC PO Rivaroxaban 20 MG DAILY 03/03 1000 AC 03/06 PO 0947 Roflumilast 500 MCG DAILY 03/03 1000 AC 03/06 PO 0948 Sertraline HCl 200 MG DAILY 03/03 1000 AC 03/06 PO 0947 Thiamine HCl 50 MG DAILY 03/03 1000 AC 03/06 PO 0948 Tiotropium [place] 1 PUF DAILY 03/03 1000 AC 03/06 INH 0945 Vitamin E 400 IU DAILY 03/03 1000 AC 03/06 PO 0947 Vital Signs & I&O Last 24 Hrs of Vitals and I&O: Vital Signs Date Time Temp Pulse Resp B/P B/P Pulse O2 O2 Flow FiO2 Mean Ox Delivery Rate 03/07 0322 98 Nasal 2.0L Cannula 03/07 0017 98.5 72 18 137/62 97 03/07 0000 94 Nasal 2.0L Cannula 03/06 1609 98 Nasal 2.0L Cannula 03/06 1600 99 Nasal 2.0L Cannula 03/06 1530 98.0 71 16 122/58 97 Room Air 03/06 0948 98.3 74 140/60 03/06 0947 74 140/60 03/06 0815 98.3 78 20 150/66 97 Nasal 2.0L Cannula 03/06 0804 96 Nasal 2.0L Cannula Intake & Output 03/07 1600 03/07 0800 03/07 0000 Intake Total 240 440 Output Total Balance 240 440 Intake, IV 50 Intake, Oral 240 390 Oxygen saturation 2 L 98% exam for chest shows clear lung gutierrez the breath sounds are diminished in no wheezes or rhonchi cardiac exam shows regular S1 and S2 without murmurs Impression/Plan Impression/Plan Impression/Plan: 67-year-old woman with atrial fibrillation on anticoagulation comes in with worsening anemia or shortness breath cough productive of yellow sputum and bronchospasm. Note cultures have in the past grown Pseudomonas. Respiratory status appears somewhat improved. Would DC antibiotics at the time of discharge as positive sputum Pseudomonas likely reflects colonization as there were a few white cells on Gram stain. Recommendations: .Taper FiO2 as saturations allow. DC antibiotics at time of discharge. Outpatient follow-up after discharge. Continue steroid taper leukocytosis presumably secondary to steroid administration
[2017-03-07 08:24] VITALS: BP 150/62
[2017-03-07 08:31] LABS: ABSOLUTE BASOPHIL COUNT 0 /CUMM (0.0-0.2); ABSOLUTE EOSINOPHIL COUNT 0 /CUMM (0.0-0.7); ABSOLUTE LYMPH COUNT 0.8 /CUMM (1.2-3.4); BASOPHIL % 0 % (0.0-2.0); HEMATOCRIT 26.9 % (37-47); MEAN PLATELET VOLUME 6.6 FL (7.4-10.4); RBC DISTRIBUTION WIDTH 16.3 % (11.5-14.5); RED BLOOD CELL CT 2.97 /CUMM (4.20-5.40)
[2017-03-07 08:39] LABS: ABSOLUTE GRANULOCYTE CT 17.1 /CUMM (1.4-6.5); ABSOLUTE MONOCYTE COUNT 0.6 /CUMM (0.10-0.60); EOSINOPHIL % 0 % (0-5); GRANULOCYTE % 92.5 % (42.2-75.2); MEAN CORPUSCULAR HGB 28.9 PG (27.0-31.0); MEAN CORPUSCULAR VOLUME 90.3 FL (81.0-99.0); PLATELET COUNT 920 /CUMM (130-400); WHITE BLOOD CELL COUNT 18.5 /CUMM (4.8-10.8)
[2017-03-07 16:05] VITALS: BP 150/70
--- NOTE | 2017-03-07 16:59 | PN- Cardiology ---
Subjective Subjective: * Breathing is about the same with slightly more congestion. * sinus rhythm w/o any significant dysrythmias * stable H/H Objective Vital Signs and I&Os Vital Signs Date Time Temp Pulse Resp B/P B/P Pulse O2 O2 Flow FiO2 Mean Ox Delivery Rate 03/07 1648 99 Nasal 2.0L Cannula 03/07 1605 98.7 70 18 150/70 95 Nasal 2.0L Cannula 03/07 0954 66 150/62 03/07 0954 66 150/62 03/07 0824 97.9 66 18 150/62 98 Nasal 2.0L Cannula 03/07 0802 98 Nasal 2.0L Cannula 03/07 0800 Nasal 2.0L Cannula 03/07 0322 98 Nasal 2.0L Cannula 03/07 0017 98.5 72 18 137/62 97 03/07 0000 94 Nasal 2.0L Cannula Intake & Output 03/07 1600 03/07 0800 03/07 0000 03/06 1600 03/06 0800 03/06 0000 Intake Total 480 240 440 480 100 350 Output Total Balance 480 240 440 480 100 350 Intake, IV 50 60 Intake, Oral 480 240 390 480 100 290 Physical Exam: General: WD/ WN female in NAD; alert and oriented x 3 Heart: RRR Lungs: decreased breath sounds bilaterally with congestion Extremities: no edema Assessment/Plan Assessment/Plan * Cardioversion done with return of NSR. Continue Dofetilide at 250mg BID. Continue Xarelto for stroke prophylaxis. Continue telemetry until discharge which is anticipated tomorrow. Continue telemetry? Yes
[2017-03-08 01:00] VITALS: BP 142/70
[2017-03-08 08:01] LABS: ABSOLUTE BASOPHIL COUNT 0 /CUMM (0.0-0.2); ABSOLUTE EOSINOPHIL COUNT 0.4 /CUMM (0.0-0.7); ABSOLUTE LYMPH COUNT 2.5 /CUMM (1.2-3.4); ABSOLUTE MONOCYTE COUNT 1.5 /CUMM (0.10-0.60); BASOPHIL % 0.2 % (0.0-2.0); EOSINOPHIL % 1.8 % (0-5); MEAN CORPUSCULAR HGB 28.9 PG (27.0-31.0); MEAN CORPUSCULAR VOLUME 90.4 FL (81.0-99.0); MEAN PLATELET VOLUME 6.7 FL (7.4-10.4); PLATELET COUNT 957 /CUMM (130-400); RED BLOOD CELL CT 3.21 /CUMM (4.20-5.40); WHITE BLOOD CELL COUNT 21.5 /CUMM (4.8-10.8)
--- NOTE | 2017-03-08 08:14 | PN- Pulmonary ---
Subjective HPI/Critical Care Issues: Patient feels well shortness of breath is improved congestion has improved Objective Current Medications: Current Medications Sig/Lana Start time Last Medication Dose Route Stop Time Status Admin Acetaminophen 650 MG Q6P PRN 03/02 2230 AC PO Albuterol Sulfate 3 ML EVERY 4 HRS/AWAKE 03/03 0800 AC 03/08 INH 0804 Albuterol Sulfate 3 ML Q4 HRS NEEDED PRN 03/02 2200 AC INH Alprazolam 0.5 MG BID PRN 03/02 2200 AC 03/07 PO 03/09 2159 2233 Amiodarone HCl 200 MG DAILY 03/03 1000 AC 03/07 PO 0954 Ascorbic Acid 1,000 MG DAILY 03/03 1000 AC 03/07 PO 0955 Budesonide/ 2 PUF BID 03/02 221 AC 03/07 Formoterol Fumarate INH 2233 Bupropion HCl 150 MG QAM 03/03 1000 AC 03/07 PO 0956 Calcium 600 MG BID 03/03 1000 AC 03/07 PO 2233 Ceftazidime 1,000 MG IQ8 03/04 1615 DC 03/08 IV 0019 Cholecalciferol 400 IU DAILY 03/03 1000 AC 03/07 PO 0956 Dicyclomine HCl 10 MG TID 03/03 0100 AC 03/07 PO 2233 Diltiazem HCl 180 MG DAILY 03/03 1000 AC 03/07 PO 0954 Docusate Sodium 200 MG QPM 03/03 2200 AC 03/07 PO 2234 Dofetilide 250 MCG BID 03/05 1500 AC 03/07 PO 2233 Ezetimibe 10 MG DAILY 03/03 1000 AC 03/07 PO 0956 Ferrous Sulfate 325 MG TID 03/03 0100 AC 03/07 PO 2235 Fish Oil 1,050 MG DAILY 03/03 1000 AC 03/07 PO 0952 Folic Acid 1 MG DAILY 03/03 1000 AC 03/07 PO 0958 Furosemide 40 MG 0600,1800 03/06 0740 AC 03/08 PO 0612 Guaifenesin 600 MG DAILY 03/03 1000 AC 03/07 PO 0955 Hydromorphone HCl 2 MG Q4P PRN 03/02 2245 AC 03/08 PO 0612 Ibuprofen 600 MG Q6P PRN 03/02 2230 AC 03/07 PO 2150 Levothyroxine Sodium 0.1 MG DAILY AC 03/03 0700 AC 03/08 PO 0612 Lidocaine 1 PAT DAILY 03/06 1829 AC 03/07 EXT 0958 Losartan Potassium 50 MG DAILY 03/03 1000 AC 03/07 PO 0954 Melatonin 5 MG AT BEDTIME 03/06 2200 AC 03/07 PO 2235 Methylprednisolone 40 MG Q12 03/06 2200 DC 03/06 IV 03/07 1001 2234 Montelukast Sodium 10 MG 2200 03/03 2200 AC 03/07 PO 2234 Nitroglycerin 0.6 MG DAILY 03/03 1000 AC 03/07 TOP 0953 Omeprazole 40 MG DAILY AC 03/03 0700 AC 03/08 PO 0612 Patient Medication 1 ED .STK-MED ONE 03/07 1357 DC Teaching ED 03/07 1358 Polyethylene Glycol 17 GM DAILY 03/03 1851 AC 03/05 PO 1112 Potassium Chloride 20 MEQ DAILY 03/04 1415 AC 03/07 PO 0955 Pravastatin Sodium 40 MG 1700 03/02 2015 AC 03/07 PO 1857 Prednisone 40 MG DAILY 03/07 1000 AC 03/07 PO 1126 Rivaroxaban 20 MG DAILY 03/03 1000 AC 03/07 PO 0956 Roflumilast 500 MCG DAILY 03/03 1000 AC 03/07 PO 0952 Sertraline HCl 200 MG DAILY 03/03 1000 AC 03/07 PO 0957 Thiamine HCl 50 MG DAILY 03/03 1000 AC 03/07 PO 0956 Tiotropium [place] 1 PUF DAILY 03/03 1000 AC 03/07 INH 0951 Vitamin E 400 IU DAILY 03/03 1000 AC 03/07 PO 0956 Vital Signs & I&O Last 24 Hrs of Vitals and I&O: Vital Signs Date Time Temp Pulse Resp B/P B/P Pulse O2 O2 Flow FiO2 Mean Ox Delivery Rate 03/08 0805 96 Nasal 2.0L Cannula 03/08 0100 98.5 64 20 142/70 98 03/08 0000 95 Nasal 2.0L Cannula 03/07 1648 99 Nasal 2.0L Cannula 03/07 1605 98.7 70 18 150/70 95 Nasal 2.0L Cannula 03/07 1600 Nasal 2.0L Cannula 03/07 0954 66 150/62 03/07 0954 66 150/62 03/07 0824 97.9 66 18 150/62 98 Nasal 2.0L Cannula Intake & Output 03/08 1600 06/16 0800 06/16 0000 Intake Total 400 240 Output Total Balance 400 240 Intake, Oral 400 240 Number 1 Bowel Movements Oxygen saturation 2 L 9698% temperature shows diminished breath sounds are no wheezes cardiac exam shows regular S1 and S2 without murmurs Impression/Plan Impression/Plan Impression/Plan: 67-year-old woman with atrial fibrillation on anticoagulation comes in with worsening anemia or shortness breath cough productive of yellow sputum and bronchospasm. Note cultures have in the past grown Pseudomonas. Respiratory status appears somewhat improved. Would DC antibiotics at the time of discharge as positive sputum Pseudomonas likely reflects colonization as there were a few white cells on Gram stain. Patient should be followed and COPD clinic and follow-up in the office after discharge Recommendations: .Taper FiO2 as saturations allow. DC antibiotics at time of discharge. Outpatient follow-up after discharge. Continue steroid taper leukocytosis presumably secondary to steroid administration
[2017-03-08 08:24] VITALS: BP 128/70
[2017-03-08 09:08] LABS: GRANULOCYTE % 79.4 % (42.2-75.2)
--- NOTE | 2017-03-08 09:50 | Patient Discharge Instructions ---
Discharge Instructions General Discharge Information You were seen/treated for: Follow-up with primary care doctor in a week after discharge. Follow-up with accounting file clerk Dr. Naranjo in a week after discharge. Follow-up with regulatory auditor in a week after discharge Diet Continue normal diet: Yes Recommended Diet: Heart Healthy Activity Full Activity/No Limits: Yes Acute Coronary Syndrome Inclusion Criteria At DC or during hospital stay patient has or had the following: ACS DIAGNOSIS No Discharge Core Measures Meds if any: Prescribed or Continued at Discharge Meds if any: NOT Prescribed or Continued at Discharge Congestive Heart Failure Inclusion Criteria At DC or during hospital stay patient has or had the following: CHF DIAGNOSIS No Discharge Core Measures Meds if any: Prescribed or Continued at Discharge Meds if any: NOT Prescribed or Continued at Discharge Cerebrovascular accident Inclusion Criteria At DC or during hospital stay patient has or had the following: CVA/TIA Diagnosis No Discharge Core Measures Meds if any: Prescribed or Continued at Discharge Meds if any: NOT Prescribed or Continued at Discharge Venous thromboembolism Inclusion Criteria VTE Diagnosis No VTE Type NONE VTE Confirmed by (Test) NONE Discharge Core Measures - Per Current guidelines, there needs to be overlap - treatment for the first 5 days of Warfarin therapy. - If discharged on Warfarin prior to 5 days of - overlap therapy, the patient will need to be - assessed for post discharge needs including - *Post discharge parental anticoagulation - *Warfarin and/or parental anticoagulation education - *Follow up date to check INR post discharge At least 5 days overlap therapy as Inpatient No Meds if any: Prescribed or Continued at Discharge Note: Overlap Therapy is Warfarin and Anticoagulant Meds if any: NOT Prescribed or Continued at Discharge
[2017-03-08] MEDS ORDERED: TIKOSYN125 MCG PO ×2 (09:56→11:41)
[2017-03-08] MEDS ORDERED: PREDNISONE10 M2 PO ×3 (10:20→11:41)
[2017-03-08 10:22] VITALS: BP 128/70
[2017-03-08] MEDS ORDERED: PERCOCET 5-3251 EACH PO ×2 (10:22→11:41)
--- NOTE | 2017-03-08 10:28 | PN- Housestaff ---
NEHAL KNIGHT MD,AUDRA 03/08/17 1028: Subjective Follow-up For: COPD exacerbation Pseudomonas colonization Paroxysmal afib with RVR status post cardioversion Complaints: no complaints Tele-Events Since Last Visit: Patient is off telemetry monitoring Subjective: Patient feels the same as yesterday. No acute episodes of chest pain, palpitations or shortness of breath overnight Review of Systems Constitutional: Denies: chills, fever. EENTM: Denies: visual changes. Cardiovascular: Denies: chest pain, palpitations. Respiratory: Reports: cough. Denies: short of breath. Gastrointestinal: Denies: abdominal pain, nausea, vomiting. Musculoskeletal: Denies: back pain. Objective Last 24 Hrs of Vital Signs/I&O Vital Signs Date Time Temp Pulse Resp B/P B/P Pulse O2 O2 Flow FiO2 Mean Ox Delivery Rate 03/08 1125 96 Nasal 2.0L Cannula 03/08 1022 63 128/70 03/08 1022 63 128/70 03/08 0824 98.0 63 20 128/70 98 Nasal 2.0L Cannula 03/08 0805 96 Nasal 2.0L Cannula 03/08 0800 Nasal 2.0L Cannula 03/08 0100 98.5 64 20 142/70 98 06/16 0000 95 Nasal 2.0L Cannula 03/07 1648 99 Nasal 2.0L Cannula 03/07 1605 98.7 70 18 150/70 95 Nasal 2.0L Cannula 03/07 1600 Nasal 2.0L Cannula Intake & Output 03/08 1600 16 0800 03/08 0000 Intake Total 400 240 Output Total Balance 400 240 Intake, Oral 400 240 Number 1 Bowel Movements Patient 115 lb Weight Physical Exam General Appearance: Alert, Oriented X3, Cooperative, No Acute Distress HEENT: Atraumatic Neck: Supple Cardiovascular: Regular Rate, Normal S1, Normal S2 Lungs: Mild wheezing on b/l lung exam Abdomen: Normal Bowel Sounds, Soft, No Tenderness Neurological: Normal Speech, Normal Tone Extremities: No Cyanosis, No Edema Current Medications: Current Medications Sig/Lana Start time Last Medication Dose Route Stop Time Status Admin Acetaminophen 650 MG Q6P PRN 03/02 2230 AC PO Albuterol Sulfate 3 ML EVERY 4 HRS/AWAKE 03/03 0800 AC 03/08 INH 1122 Albuterol Sulfate 3 ML Q4 HRS NEEDED PRN 03/02 2200 AC INH Alprazolam 0.5 MG BID PRN 03/02 2200 AC 03/08 PO 03/09 2159 1020 Amiodarone HCl 200 MG DAILY 03/03 1000 AC 03/08 PO 1022 Ascorbic Acid 1,000 MG DAILY 03/03 1000 AC 03/08 PO 1023 Budesonide/ 2 PUF BID 03/02 2212 AC 03/08 Formoterol Fumarate INH 1020 Bupropion HCl 150 MG QAM 03/03 1000 AC 03/08 PO 1024 Calcium 600 MG BID 03/03 1000 AC 03/08 PO 1022 Ceftazidime 1,000 MG IQ8 03/04 1615 DC 03/08 IV 0019 Cholecalciferol 400 IU DAILY 03/03 1000 AC 03/08 PO 1024 Dicyclomine HCl 10 MG TID 03/03 0100 AC 03/08 PO 1022 Diltiazem HCl 180 MG DAILY 03/03 1000 AC 03/08 PO 1022 Docusate Sodium 200 MG QPM 03/03 2200 AC 03/07 PO 2234 Dofetilide 250 MCG BID 03/05 1500 AC 03/08 PO 1021 Ezetimibe 10 MG DAILY 03/03 1000 AC 03/08 PO 1024 Ferrous Sulfate 325 MG TID 03/03 0100 AC 03/08 PO 1023 Fish Oil 1,050 MG DAILY 03/03 1000 AC 03/08 PO 1022 Folic Acid 1 MG DAILY 03/03 1000 AC 03/08 PO 1023 Furosemide 40 MG 0600,1800 03/06 0740 AC 03/08 PO 0612 Guaifenesin 600 MG DAILY 03/03 1000 AC 03/08 PO 1023 Hydromorphone HCl 2 MG Q4P PRN 03/02 2245 AC 03/08 PO 1021 Ibuprofen 600 MG Q6P PRN 03/02 2230 AC 03/07 PO 2150 Levothyroxine Sodium 0.1 MG DAILY AC 03/03 0700 AC 03/08 PO 0612 Lidocaine 1 PAT DAILY 03/06 1829 AC 03/08 EXT 1019 Losartan Potassium 50 MG DAILY 03/03 1000 AC 03/08 PO 1022 Melatonin 5 MG AT BEDTIME 03/06 2200 AC 03/07 PO 2235 Montelukast Sodium 10 MG 2200 03/03 2200 AC 03/07 PO 2234 Nitroglycerin 0.6 MG DAILY 06/11 1000 AC 03/08 TOP 1023 Nystatin 5 ML 4 TIMES/DAY 03/08 1026 AC 03/08 PO 1150 Omeprazole 40 MG DAILY AC 03/03 0700 AC 03/08 PO 0612 Patient Medication 1 ED .STK-MED ONE 03/07 1357 MD Teaching ED 03/07 1358 Polyethylene Glycol 17 GM DAILY 03/03 1851 AC 03/05 PO 1112 Potassium Chloride 20 MEQ DAILY 03/04 1415 AC 03/08 PO 1023 Pravastatin Sodium 40 MG 1700 03/02 2015 AC 03/07 PO 1857 Prednisone 40 MG DAILY 03/07 1000 AC 03/08 PO 1023 Rivaroxaban 20 MG DAILY 03/03 1000 AC 03/08 PO 1024 Roflumilast 500 MCG DAILY 03/03 1000 AC 03/08 PO 1021 Sertraline HCl 200 MG DAILY 03/03 1000 AC 03/08 PO 1024 Thiamine HCl 50 MG DAILY 03/03 1000 AC 03/08 PO 1023 Tiotropium [place] 1 PUF DAILY 03/03 1000 AC 03/08 INH 1020 Vitamin E 400 IU DAILY 03/03 1000 AC 03/08 PO 1024 Last 24 Hrs of Lab/Wan Results Last 24 Hrs of Labs/Mics: Laboratory Tests 03/08/17 0654: Anion Gap 11, Estimated GFR > 60, BUN/Creatinine Ratio 37.8 H, CBC w Diff NO MAN DIFF REQ, RBC 3.21 L, MCV 90.4, MCH 28.9, RDW 16.0 H, MPV 6.7 L, Gran % 79.4 H, Lymphocytes % 11.7 L, Monocytes % 6.9, Eosinophils % 1.8, Basophils % 0.2, Absolute Granulocytes 17.0 H, Absolute Lymphocytes 2.5, Absolute Monocytes 1.5 H, Absolute Eosinophils 0.4, Absolute Basophils 0, PUBS MCHC 32.0 L Assessment/Plan Assessment: Ms. 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 Although CXR is without any focal consolidation, pneumonia is a possibility given low-grade fevers at home and extensive rhonchi on exam but was ruled out during the hospital admission. Although patient has history of chronic diastolic CHF, acute exacerbation is unlikely in the absence of JVD, peripheral edema or pulmonary edema on CXR to suggest volume overload and proBNP 850 which is low for patient. 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 Therefore possibility of colonization cannot be excluded. Currently on by mouth steroids We will send the patient on steroid taper Growing( Pseudomonas )GNR and diptheroidS sensitivitie to ceftazidime Strep pneumo and Legionella antigen - negative TRC and nebs as needed Provide supplemental oxygen to keep SpO2 >92%. Cipro 500mg PO was discontinued as the because of interaction with Tikosyn Complete course of ceftazidime Continue home meds Spiriva 1 puff daily, Symbicort 2 puffs BID, Mucinex 600 mg PO daily and roflumilast 500 mcg PO daily. #Acute on chronic anemia H/H 7.9/24.8 on admission. Possibly contributing to patient's presenting symptom of shortness of breath. History of iron deficiency anemia felt to be secondary to small bowel AVMs. On admission patient received 1 unt of pRBCs with an appropriate response. Monitor CBC daily - H/H currently stable Continue home med folic acid 1 mg PO daily. #Atrial fibrillation Atrial fibrillation on admission with HR 100s-120s. Has recently reverted to atrial fibrillation on 01/21 after being in normal sinus rhythm for about 5 months following DC cardioversion and dofetilide therapy for rhythm maintenance. Patient was transferred to tele unit for close cardiac monitoring. Status post DC cardioversion. Continue home med Xarelto 20 mg PO daily. Amiodarone 200 mg PO daily was stopped and Tikosyn was added. Continue with diltiazem 180 mg PO daily. #CAD No evidence of active CAD. EKG with no ST-T changes. Troponin negative. Continue home med nitroglycerin 0.6 mg patch. #HTN Continue home med losartan 50 mg PO daily. #HLD Continue home med fish oil supplement, ezetimibe 10 mg PO daily and pravastatin 40 mg PO daily. #Depression Continue home meds Wellbutrin XL 150 mg PO daily and Zoloft 200 mg PO daily. Patient is currently in heart healthy diet Patient is on DVT prophylaxis with Xarelto Patient is on pain pathway Patient is full code Problem List: 1. COPD exacerbation Pain Ratin Pain Location: NA Pain Goal: Pain 4 or less Pain Plan: Continue current pain medications Tomorrow's Labs & Rationales: No labs GENOVEVA ETIENNENARCISA 03/08/17 1226: Attending Review Statement Attending Statement Attending MD Statement: examined this patient, discuss w/resident/PA/APPLE PRESS OPERATOR, agreed w/resident/PA/APPLE PRESS OPERATOR, reviewed EMR data (avail), discussed with nursing, discussed with case mgmt, amended to note Attending Assessment/Plan: Patient seen and examined. Resting comfortably and not in any acute distress. No issues overnight yet again on telemetry monitoring. Continues complain of mild productive cough. She is on mucolytic therapy and does use an Acapella device as well. She is able to ambulate without assistance. She feels any better states today and is ready to be discharged home. She'll follow-up with the pulmonology service as an outpatient. This morning she did complain of sore throat. She reports similar sensation when she had oropharyngeal thrush in the past. On examination she has no evidence of orolaryngeal thrush. She has been provided with prescription for nystatin swish and swallow to utilize upon discharge. She reports a history of anxiety anytime she has a flareup of her COPD. She reports using Xanax as needed. She complains of chronic diffuse pain for which she requires pain medication intermittently. She has been provided with a prescription for Percocet as well
[2017-03-08] MEDS ORDERED: NYSTATIN100000 UNI PO ×2 (10:37→11:41)
--- NOTE | 2017-03-08 17:19 | Discharge Summary ---
Visit Information Visit Dates Admission Date: 03/04/17 Discharge Date: 03/08/17 Hospital Course Course Attending Physician: ASAI TAI MD Primary Care Physician: DEDE MARION MD Consulting Request: Consulting Specialty: Cardiology Hospital Course: Ms. 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 Patient was initially placed under observation on general medicine floor where she was started on Solumedrol with IV antibiotics Fortaz and Zithromax. Her antibiotics were switched to Cipro 500mg PO BID on day 2 of the admission per pulm's recommendation. Patient improved significantly since then. Family Services Coordinator Dr. Naranjo was consulted in the meantime for her atril fibrillation with RVR as her EKG on admission was consistent with Afib with RVR (HR 108). Upon assessment by Dr. Naranjo's recommendation, she was transferred to telemetery for close monitoring in anticipation for possible cardioversion. 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 Although CXR was without any focal consolidation, pneumonia was a possibility given low- grade fevers at home and extensive rhonchi on exam but was ruled out during the hospital admission. She has gone Pseudomonas aeruginosa in the sputum multiple times in the past and grew the same organism again in respiratory cultures. 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 As per pulmonary recommendations, Patient did receive ceftazidime empirically during her hospital stay. Patient was also started on Cipro in between which was discontinued because of interaction with Tikosyn. Patient was discharged on by mouth steroids without any antibiotics. #Atrial fibrillation Atrial fibrillation on admission with HR 100s-120s. Was recently reverted to atrial fibrillation on 01/21 after being in normal sinus rhythm for about 5 months following DC cardioversion and dofetilide therapy for rhythm maintenance. Patient was transferred to tele unit for close cardiac monitoring. Cardioversion was performed by Dr. Naranjo. Patient stayed in sinus rhythm post cardioversion. Amiodarone 200 mg PO daily was stopped and Tikosyn was added. Patient was discharged on Xarelto 20 mg PO daily and diltiazem 180 mg PO daily. #Acute on chronic anemia H/H 7.9/24.8 on admission. Possibly contributing to patient's presenting symptom of shortness of breath. History of iron deficiency anemia felt to be secondary to small bowel AVMs. Patient received 1 unt of pRBCs with an appropriate response. Patient's CBC remained fairly stable after that. #CAD No evidence of active CAD. EKG with no ST-T changes. Troponin negative. She was kept on home med nitroglycerin 0.6 mg patch. #HTN Continued losartan 50 mg PO daily. #HLD Continued pravastatin 40 mg PO daily. #Depression Continued Wellbutrin XL 150 mg PO daily and Zoloft 200 mg PO daily. Patient was currently in heart healthy diet Patient was on DVT prophylaxis with Xarelto Patient was on pain pathway Patient was full code Allergies: Coded Allergies: menotropins (HIVES FROM PERGONAL 11/15/15) apixaban (HEMATOMA TO HIP 02/02/17) Disposition Summary Disposition Principal Diagnosis: COPD exacerbation Pseudomonas colonization Paroxysmal afib with RVR status post cardioversion Additional Diagnosis: History of anemia History of coronary artery disease History of hypertension History of Hyperlipidemia History of depression Discharge Disposition: home or self care Discharge Instructions General Discharge Information Code Status: Full Code Patient's Diet: Heart healthy diet Patient's Activity: As tolerated Follow-Up Instructions/Appts: Follow-up with primary care doctor in a week after discharge. Follow-up with diesel retrofit installer Dr. Naranjo in a week after discharge. Follow-up with trim line worker in a week after discharge Follow-up with Dr. Stubbs after discharge Medications at Discharge Discharge Medications: Stop taking the following medications: Amiodarone HCl (Amiodarone HCl) 200 MG TABLET ORAL DAILY Qty = 30 Continue taking these medications: Levothyroxine Sodium (Levothyroxine Sodium) 100 MCG TABLET 1 Tablet ORAL DAILY BEFORE BREAKFAST Comments: Last Taken: 03/08/17 Time: 10 AM Sertraline HCl (Zoloft) 100 MG TABLET 2 Tablet ORAL DAILY Comments: Last Taken: 03/08/17 Time: 10 AM Ezetimibe (Zetia) 10 MG TABLET 1 Tablet ORAL DAILY Comments: Last Taken: 03/08/17 Time: 10 AM Bupropion HCl (Bupropion HCl Sr) 150 MG TABLET.ER 1 Tablet ORAL Every Morning Comments: Last Taken: 03/08/17 Time: 10 AM Ferrous Sulfate (Ferrous Sulfate) 325 MG (65 MG IRON) TABLET 1 Tablet ORAL THREE TIMES DAILY Comments: Last Taken: 03/08/17 Time: 10 AM Pravastatin Sodium (Pravachol) 40 MG TABLET 1 Tablet ORAL Every night Comments: Last Taken: 03/07/17 Time: 7 PM Docusate Sodium (Colace) 100 MG CAPSULE 2 Capsule ORAL Every night Comments: Last Taken: 03/07/17 Time: 10 PM Roflumilast (Daliresp) 500 MCG TABLET 1 Tablet ORAL DAILY Comments: Last Taken: 03/08/17 Time: 10 AM Montelukast Sodium (Montelukast Sodium) 10 MG TABLET 1 Tablet ORAL DAILY Comments: NOT GIVEN IN THE HOSPITAL Folic Acid (Folic Acid) 1 MG TABLET 1 Tablet ORAL DAILY Comments: Last Taken: 03/08/17 Time: 10 AM Vitamin E (Dl,Tocopheryl Acet) (Vitamin E) 400 UNIT CAPSULE 1 Tablet ORAL DAILY Comments: Last Taken: 03/08/17 Time: 10 AM Calcium Carbonate/Vitamin D3 (Caltrate 600 + D Tablet) 1 EACH TABLET 2 Tablet ORAL DAILY Comments: Last Taken: 03/08/17 Time: 10 AM Cholecalciferol (Vitamin D3) (Vitamin D3) 400 UNIT TABLET 1 Tablet ORAL DAILY Comments: Last Taken: 03/08/17 Time: 10 AM Furosemide (Lasix) 40 MG TABLET 1 Tablet ORAL TWICE DAILY Comments: Last Taken: 03/08/17 Time: 6 AM Budesonide (Pulmicort) 0.5 MG/2 ML AMPUL.NEB 1 Vial Inhale Solution TWICE DAILY Comments: NOT GIVEN IN THE HOSPITAL Guaifenesin (Mucinex) 600 MG TAB.ER.12H 1 Tablet ORAL DAILY Comments: Last Taken: 03/08/17 Time: 10 AM Alprazolam (Alprazolam) 0.5 MG TABLET 1 Tablet ORAL TWICE DAILY Comments: Last Taken: 03/08/17 Time: 10 AM Potassium Chloride (Potassium Chloride) 20 MEQ TAB.ER.PRT 1 Tablet ORAL DAILY Qty = 30 Comments: Last Taken: 03/08/17 Time: 10 AM Tiotropium [place] (Spiriva) 18 MCG CAP.W.DEV 1 Capsule Inhale through mouth DAILY Qty = 3 Instructions: Reason to Stop at ADM:TRC NEBS ORDERS Comments: Last Taken: 03/08/17 Time: 10 AM Fluticasone/Salmeterol (Advair 250-50 Diskus) 250 MCG-50 MCG/DOSE BLST.W.DEV 1 Puff Inhale through mouth TWICE DAILY Comments: Last Taken: 03/08/17 Time: 10 AM SYMBICORT GIVEN IN THE HOSPITAL Albuterol Sulfate (Albuterol Sulfate) 2.5 MG/3 ML (0.083 %) VIAL.NEB 1 Vial Inhale Solution 4XDAILY as needed for RESPIRATORY Comments: Last Taken: 03/08/17 Time: 11 AM Arformoterol Tartrate (Brovana) 15 MCG/2 ML VIAL.NEB 1 VIAL Inhale through mouth DAILY Comments: NOT GIVEN IN THE HOSPITAL Losartan Potassium (Losartan Potassium) 50 MG TABLET 1 Tablet ORAL DAILY Qty = 90 Comments: Last Taken: 03/08/17 Time: 10 AM Nitroglycerin (Nitro-Dur) 0.6 MG/HOUR PATCH.TD24 1 PATCH On the skin DAILY Comments: Last Taken: 03/08/17 Time: 10 AM Omeprazole (Omeprazole) 40 MG CAPSULE.DR 1 Capsule ORAL DAILY Comments: Last Taken: 03/08/17 Time: 6 AM Acetaminophen (Arthritis Pain Reliever) 650 MG TABLET.ER 2 Tablet ORAL as needed for PAIN Comments: NOT GIVEN IN HOSPITAL Diltiazem HCl (Diltiazem ER) 180 MG CAPSULE.ER 1 Tablet ORAL DAILY Days = 28 Comments: Last Taken: 03/08/17 Time: 10 AM Rivaroxaban (Xarelto) 20 MG TABLET 1 Tablet ORAL DAILY Qty = 30 Instructions: with food Comments: Last Taken: 03/08/17 Time: 10 AM Dicyclomine HCl (Dicyclomine HCl) 10 MG CAPSULE 1 Capsule ORAL THREE TIMES DAILY Qty = 270 Comments: Last Taken: 03/08/17 Time: 10 AM [place]-3 Fatty Acids/Fish Oil (Fish Oil 1,200 MG Softgel) 360 MG-1,200 MG CAPSULE.DR 1 Capsule ORAL DAILY Comments: Last Taken: 03/08/17 Time: 10 AM Cyanocobalamin (Vitamin B-12) (B-12) 1,000 MCG TABLET 1 Tablet ORAL DAILY Comments: NOT GIVEN IN THE HOSPITAL Ascorbic Acid (C-1000) 1,000 MG TABLET 1 Tablet ORAL DAILY Comments: Last Taken: 03/08/17 Time: 10 AM Start taking the following new medications: Prednisone (Prednisone) 10 MG TABLET 1 Tablet ORAL TAPER Qty = 12 No Refills Instructions: . Comments: 03/09-03/10 30 MG 03/11-03/12 20 MG 03/13-03/14 10 MG THEN STOP TAKING THIS MEDICATION Last Taken: 03/08/17 Time: 10 AM Oxycodone HCl/Acetaminophen (Percocet 5-325 MG Tablet) 5 MG-325 MG TABLET 1 Tablet ORAL EVERY SIX HOURS as needed for PAIN 7-10 Qty = 12 No Refills Instructions: . Comments: NOT GIVEN IN THE HOSPITAL Dofetilide (Tikosyn) 125 MCG CAPSULE 2 Capsule ORAL TWICE DAILY Qty = 90 No Refills Instructions: . Comments: Last Taken: 03/08/17 Time: 10 AM Nystatin (Nystatin) 100,000 UNIT/ML ORAL.SUSP 5 [place]ilit[place] ORAL 4 TIMES A DAY Qty = 140 No Refills Instructions: . Comments: Last Taken: 03/08/17 Time: 12 PM Copies To: NARCISA TOMAS M.D
== END 2017-03-08 15:30 | disposition home health service (06) | DRG 191 ==
LOC: ERH 17:04 → ERHI 18:52 → 1NO 18:52 → ENRESERV 19:40 → ENTRNSPT 20:11 → 2NB 20:24 → CMPTRNSPT 20:52 → 2NB 21:56 → 1NO 03-04 09:15 → ENPENDDIS 03-08 11:23 → 1NO 03-08 15:30
PROVIDERS: Emergency Medicine; Preventive Medicine Public Health & General Preventive Medicine; Student in an Organized Health Care Education/Training Program; ADMIT Student in an Organized Health Care Education/Training Program
PROC: 5A2204Z Restoration of Cardiac Rhythm, Single (ICD-10-PCS; principal; 2017-03-05)
DX: J44.1 Chronic obstructive pulmonary disease with (acute) exacerbation (principal); J96.11 Chronic respiratory failure with hypoxia; Z99.81 Dependence on supplemental oxygen; I48.0 Paroxysmal atrial fibrillation; E87.1 Hypo-osmolality and hyponatremia; E03.9 Hypothyroidism, unspecified; F32.9 Major depressive disorder, single episode, unspecified; E86.0 Dehydration; Z79.01 Long term (current) use of anticoagulants; I25.10 Atherosclerotic heart disease of native coronary artery without angina pectoris; I25.2 Old myocardial infarction; E78.5 Hyperlipidemia, unspecified; M79.7 Fibromyalgia; Z87.891 Personal history of nicotine dependence; D50.9 Iron deficiency anemia, unspecified; K21.9 Gastro-esophageal reflux disease without esophagitis
CPT/HCPCS: 1NP; 36415; 73070-LT; 81003; 82436; 86920; 87040; 87070; 87071; 87449; 87450; 93005; 93010; 96374; J0456; J0713; J1940; J2920; J2930; J3490; J7040; P9016

== ENCOUNTER 2017-04-03 18:36 | Inpatient (IN) | payer OTHER, MEDICARE ==
[~2017-04-03] VITALS: Ht 157.5 cm; Wt 53.5 kg
[~2017-04-03 18:36] MED LIST changes: +B-121000 MC3 PO; +C-10001000 MG PO; +FISH OIL 1,2001 EAC1 PO; +TIKOSYN125 MCG PO; +XARELTO20 M2 PO
--- NOTE | 2017-04-03 18:40 | NUR ---
PT STATES SHE HAS COPD AND SOB ON 02 2L VIA CONT. PT STATES SHE HAS ANEMIA AND SAW DR. CEDENO TODAY AND WAS TOLD SHE NEEDS TWO UNITS OF BLOOD AND SHE HAS TO GET ABX FOR AN INFECTION THAT SHE HAS.
--- NOTE | 2017-04-03 19:42 | ED GENERAL ADULT ---
History of Present Illness General Chief Complaint: General Adult Stated Complaint: PT WAS SIB IN BY HER NURSE NEEDS IV Source: patient Exam Limitations: no limitations Vital Signs & Intake/Output Vital Signs & Intake/Output Vital Signs Date Time Temp Pulse Resp B/P B/P Pulse O2 O2 Flow FiO2 Mean Ox Delivery Rate 04/04 0315 97.8 69 20 154/72 98 Nasal 2.0L Cannula 04/04 0300 97.2 66 20 134/67 98 Nasal 2.0L Cannula 04/04 0218 97.8 70 20 126/61 98 Nasal 2.0L Cannula 04/03 2334 97.6 64 20 134/63 100 Room Air 04/03 2304 97.3 67 20 133/68 98 Room Air 2.0L 04/03 2143 97.7 74 16 154/66 99 Nasal 2.0L Cannula 04/03 2046 96 Nasal 2.0L Cannula 04/03 1842 98.0 79 16 125/63 97 Room Air ED Intake and Output 04/04 0000 04/03 1200 Intake Total Output Total Balance Patient 118 lb Weight Allergies Coded Allergies: menotropins (HIVES FROM PERGONAL 11/15/15) apixaban (HEMATOMA TO HIP 02/02/17) Reconcile Medications Acetaminophen (Arthritis Pain Reliever) 650 MG TABLET.ER 2 TAB PO PRN PAIN ( Reported) Albuterol Sulfate 2.5 MG/3 ML (0.083 %) VIAL.NEB 1 Vial INH/DANIKA 4XDAILY PRN RESPIRATORY (Reported) Alprazolam 0.5 MG TABLET 1 TAB PO BID ANXIETY (Reported) Arformoterol Tartrate (Brovana) 15 MCG/2 ML VIAL.NEB 1 VIAL INH DAILY RESPIRATORY (Reported) Ascorbic Acid (C-1000) 1,000 MG TABLET 1 TAB PO DAILY SUPPLEMENT (Reported) Budesonide (Pulmicort) 0.5 MG/2 ML AMPUL.NEB 1 Vial INH/DANIKA BID COPD ( Reported) Bupropion HCl (Bupropion HCl Sr) 150 MG TABLET.ER 1 TAB PO QAM DEPRESSION ( Reported) Calcium Carbonate/Vitamin D3 (Caltrate 600 + D Tablet) 1 EACH TABLET 2 TAB PO DAILY SUPPLEMENT (Reported) Cholecalciferol (Vitamin D3) (Vitamin D3) 400 UNIT TABLET 1 TAB PO DAILY SUPPLEMENT (Reported) Cyanocobalamin (Vitamin B-12) (B-12) 1,000 MCG TABLET 1 TAB PO DAILY SUPPLEMENT (Reported) Dicyclomine HCl 10 MG CAPSULE 1 CAP PO TID ABD CRAMPING (Reported) Diltiazem HCl (Diltiazem ER) 180 MG CAPSULE.ER 1 TAB PO BID HEART (Reported) Docusate Sodium (Colace) 100 MG CAPSULE 2 CAP PO QPM STOOL SOFTENER (Reported ) Dofetilide (Tikosyn) 250 MCG CAPSULE 1 CAP PO BID HEART (Reported) Ezetimibe (Zetia) 10 MG TABLET 1 TAB PO QPM CHOLESTEROL (Reported) Ferrous Sulfate 325 MG (65 MG IRON) TABLET 1 TAB PO TID SUPPLEMENT (Reported) Fluticasone/Salmeterol (Advair 250-50 Diskus) 250 MCG-50 MCG/DOSE BLST.W.DEV 1 PUF INH BID BREATHING PROBLEMS (Reported) Folic Acid 1 MG TABLET 1 TAB PO DAILY SUPPLEMENT (Reported) Furosemide (Lasix) 40 MG TABLET 1 TAB PO BID WATER PILL (Reported) Furosemide 40 MG TABLET 1 TAB PO BID DIURETIC (Reported) Guaifenesin (Mucinex) 600 MG TAB.ER.12H 1 TAB PO DAILY EXPECTORANT (Reported) Levothyroxine Sodium 100 MCG TABLET 1 TAB PO DAILY AC THYROID (Reported) Losartan Potassium 50 MG TABLET 1 TAB PO QHS BP (Reported) Montelukast Sodium 10 MG TABLET 1 TAB PO DAILY COPD (Reported) Nitroglycerin (Nitro-Dur) 0.6 MG/HOUR PATCH.TD24 1 PATCH TOP DAILY HEART ( Reported) Nystatin 100,000 UNIT/ML ORAL.SUSP 5 ML PO 4 TIMES/DAY oral rash . Corn-3 Fatty Acids/Fish Oil (Fish Oil 1,200 MG Softgel) 360 MG-1,200 MG CAPSULE.DR 1 CAP PO DAILY SUPPLEMENT (Reported) Omeprazole 40 MG CAPSULE.DR 1 CAP PO DAILY GI (Reported) Potassium Chloride 20 MEQ TAB.ER.PRT 1 TAB PO DAILY SUPPLEMENT (Reported) Pravastatin Sodium (Pravachol) 40 MG TABLET 1 TAB PO QPM CHOLESTEROL ( Reported) Rivaroxaban (Xarelto) 20 MG TABLET 1 TAB PO DAILY BLOOD THINNER (Reported) with food Roflumilast (Daliresp) 500 MCG TABLET 1 TAB PO DAILY COPD (Reported) Sertraline HCl (Zoloft) 100 MG TABLET 2 TAB PO DAILY DEPRESSION (Reported) Tiotropium [place] (Spiriva) 18 MCG CAP.W.DEV 1 CAP INH DAILY copd Reason to Stop at ADM:TRC NEBS ORDERS Vitamin E (Dl,Tocopheryl Acet) (Vitamin E) 400 UNIT CAPSULE 1 TAB PO DAILY SUPPLEMENT (Reported) Triage Note: PT STATES SHE HAS COPD AND SOB ON 02 2L VIA CONT. PT STATES SHE HAS ANEMIA AND SAW DR. CEDENO TODAY AND WAS TOLD SHE NEEDS TWO UNITS OF BLOOD AND SHE HAS TO GET ABX FOR AN INFECTION THAT SHE HAS. Triage Nurses Notes Reviewed? yes Onset: Gradual Duration: day(s): Timing: recent history Injury Environment: home Severity: mild Modifying Factors: Improves With: rest. Associated Symptoms: cough HPI: 67 yo woman presents with increased fatigue and shortness of breath. "I am on oxygen... If I walk even a little way, I get short of breath." She notes increased sputum production, mild wheeze, but no fever, chills, chest pain. She notes she saw Dr. Woods, "he told me I needed a blood transfusion and that I needed antibiotics." Past History Travel History Traveled to [place] past 21 day No Medical History Any Pertinent Medical History? 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 Other Medical Hx: discoid lupus eczema ulcerative colitis History of MRSA: No History of VRE: No History of CDIFF: No Tetanus Vaccine: 02/07/16 Surgical History Surgical History: appendectomy, hernia repair-hiatal tonsillectomy tonsillectomy Psychosocial History Who do you live with Patient/Self Services at Home Oxygen What is your primary language Citizen Of [place] Tobacco Use: Quit >30 days ago ETOH Use: denies use Illicit Drug Use: denies illicit drug use Family History Family History, If Any: MOTHER FH: CAD (coronary artery disease) FH: COPD (chronic obstructive pulmonary disease) FH: heart disease FATHER Alzheimer's disease BROTHER FH: CAD (coronary artery disease) BROTHER FH: CAD (coronary artery disease) BROTHER FH: CAD (coronary artery disease) Hx Contributory? No Review of Systems Review of Systems Constitutional: Reports: no symptoms. EENTM: Reports: no symptoms. Respiratory: Reports: no symptoms. Cardiovascular: Reports: no symptoms. GI: Reports: no symptoms. Genitourinary: Reports: no symptoms. Musculoskeletal: Reports: no symptoms. Skin: Reports: no symptoms. Neurological/Psychological: Reports: no symptoms. Hematologic/Endocrine: Reports: no symptoms. Immunologic/Allergic: Reports: no symptoms. All Other Systems: Reviewed and Negative Physical Exam Physical Exam General Appearance: well developed/nourished, mild distress Head: atraumatic, normal appearance Eyes: Bilateral: normal appearance. Ears, Nose, Throat: normal pharynx, normal ENT inspection, hearing grossly normal Neck: normal inspection, supple, full range of motion Respiratory: chest non-tender, no respiratory distress, quiet respiration, wheezing Cardiovascular: regular rate/rhythm Gastrointestinal: normal bowel sounds, soft, non-tender, no organomegaly Rectal: normal exam, normal rectal tone, heme negative stool Extremities: normal inspection Neurologic/Psych: no motor/sensory deficits, awake, alert, oriented x 3 Skin: intact, normal color, warm/dry Core Measures ACS in differential dx? No CVA/TIA Diagnosis: No Severe Sepsis Present: No Septic Shock Present: No Progress Differential Diagnoses I considered the following diagnoses in my evaluation of the patient: anemia, copd exacerbation, mi, chf, pneumonia vs other. Plan of Care: Orders Procedure Date/time Status Nothing by Mouth 04/04 B Active TROPONIN LEVEL 04/04 0600 Active CBC WITHOUT DIFFERENTIAL 04/04 0600 Active BLOOD PRODUCT PICKUP 04/04 0238 Active Saline Lock 04/04 0039 Active Misc Message 04/04 0039 Active ED Holding Orders 04/04 0039 Active Admit to inpatient 04/04 0039 Active Vital Signs 04/04 0039 Active Pathway - chart 04/04 0027 Active Pathway - chart 04/04 0026 Active House Staff 04/04 0026 Active Patient Data 04/04 0026 Active Code Status 04/04 0026 Active VTE Mechanical Prophylaxis 04/04 UNK Active Hemoccult 04/04 UNK Active Patient Data 04/03 2330 Active EKG 04/03 2325 Active BLOOD PRODUCT PICKUP 04/03 2248 Active LEUKOCYTE POOR (PACKED CELLS) 04/03 2240 Active LOWER RESPIRATORY CULTURE 04/03 2002 Active TROPONIN LEVEL 04/03 1943 Complete COMPREHENSIVE METABOLIC PANEL 04/03 1943 Complete CBC WITHOUT DIFFERENTIAL 04/03 1943 Complete TYPE & SCREEN (NOT X-MATCH) 04/03 1943 Active Intake & Output 04/03 1918 Active Current Medications Sig/Lana Start time Last Medication Dose Stop Time Status Admin Docusate Sodium 200 MG QPM 04/04 2200 AC (Colace) Ezetimibe 10 MG QPM 04/04 2200 AC (Zetia) Losartan Potassium 50 MG AT BEDTIME 04/04 2200 AC (Cozaar) Pravastatin Sodium 40 MG 1700 04/04 1700 UNVr (Pravachol) Bupropion HCl 150 MG QAM 04/04 1000 AC (Wellbutrin SR) Dicyclomine HCl 10 MG TID 04/04 1000 AC (Bentyl) Fish Oil 1,050 MG DAILY 04/04 1000 AC (Corn-3) Furosemide 40 MG BID 04/04 1000 AC (Lasix) Nystatin 5 ML 4 TIMES/DAY 04/04 1000 AC (Mycostatin Susp) Rivaroxaban 20 MG DAILY 04/04 1000 AC (Xarelto) Sertraline HCl 200 MG DAILY 04/04 1000 AC (Zoloft) Tiotropium [place] 1 PUF DAILY 04/04 1000 AC (Spiriva) Vitamin E 400 IU DAILY 04/04 1000 AC (Vitamin E) Levothyroxine Sodium 0.1 MG DAILY AC 04/04 0700 AC (Synthroid) Omeprazole 40 MG DAILY AC 04/04 0700 AC (Prilosec) Acetaminophen 650 MG Q6P PRN 04/04 0030 AC 04/04 (Tylenol) 0120 Ketorolac 15 MG Q6P PRN 04/04 0030 AC Tromethamine 04/09 0029 (Toradol) Morphine Sulfate 2 MG Q4P PRN 04/04 0030 AC (Morphine) Albuterol Sulfate 3 ML Q6P PRN 04/04 0015 AC (Proventil) Alprazolam 0.5 MG BID 04/04 0003 AC 04/04 (Xanax) 04/11 0002 0030 Laboratory Tests 04/03/17 2019: Anion Gap 9, Estimated GFR > 60, BUN/Creatinine Ratio 21.3, Glucose 82, Calcium 8.8, Total Bilirubin 0.3, AST 46 H, ALT 53 H, Alkaline Phosphatase 59, Troponin I 0.02, Total Protein 5.4 L, Albumin 3.4 L, Globulin 2.0, Albumin/ Globulin Ratio 1.7, CBC w Diff NO MAN DIFF REQ, RBC 2.04 L, MCV 99.4 H, MCH 30.9, RDW 17.8 H, MPV 5.9 L, Gran % 72.1, Lymphocytes % 14.6 L, Monocytes % 10.3 H, Eosinophils % 2.8, Basophils % 0.2, Absolute Granulocytes 6.5, Absolute Lymphocytes 1.3, Absolute Monocytes 0.9 H, Absolute Eosinophils 0.2, Absolute Basophils 0, PUBS MCHC 31.1 L Microbiology 04/03 2006 LOWER RESP: Respiratory Culture - RES 04/03 2006 LOWER RESP: Gram Stain - RES Diagnostic Imaging: Viewed by Me: Radiology Read. Discussed w/RAD: Radiology Read. CXR Impression: no acute abnormality, no infiltrates, normal size heart, normal mediastinum Initial ED EKG: normal axis, normal intervals, normal p-waves, normal QRS complex, normal sinus rhythm Departure Departure Disposition: HOME OR SELF CARE Condition: Stable Clinical Impression Primary Impression: Anemia Secondary Impressions: COPD (chronic obstructive pulmonary disease) Referrals: DEDE MARION MD (PCP/Family) Departure Forms: Customer Survey General Discharge Information Comments 04/03/17, 22:03... pt had blood work at 10am today... hgb 7.2 follow up hgb 6.3. pt consented for blood transfusion. guiac negative with minimal stool in rectal vault. Admission Note Spoke With: ROXANNE GARLAND MD Documentation of Exam: Documentation of any treatments & extenuating circumstances including Concerns Regarding Discharge (functional status, medication knowledge or non-compliance, living conditions, etc.) that warrant an admission rather than observation: Pt with drop in hgb from this am, from 7.2 (outside lab) earlier at 10am today to 6.3 twelve hours later... guiac negative, but pt with history of avm's.... pt consented for blood transfusion... will follow hct, bp stable... gi consult. pt also reports a cough with phlegm... I believe this is chronic... i doubt acute infection... would consider pulm and id consults. Critical Care Note Critical Care Note Critical Care Time: 30-74 min
--- NOTE | 2017-04-03 19:45 | NUR ---
PT PLACED AT MONITOR, 2L NC 02 96%, PT GIVEN SPECIMEN CUP FOR PRODUCTIVE COUGH.
--- NOTE | 2017-04-03 19:57 | NUR ---
PT TO XRAY VIA STRETCHER
--- NOTE | 2017-04-03 20:18 | RADIOLOGY REPORT ---
EXAMINATION: CHEST 2 VIEWS CLINICAL INFORMATION: Dyspnea. COMPARISON: 03/27/2017. TECHNIQUE: PA and lateral views of the chest were obtained. FINDINGS: The cardiac silhouette is not enlarged. The mediastinal and hilar contours are unremarkable. There are neither pleural effusions nor pneumothoraces. There are no consolidations. The lungs are hyperinflated. The osseous structures are unremarkable. IMPRESSION: No evidence for acute disease.
--- NOTE | 2017-04-03 20:18 | NUR ---
THIS RN ESTABLISHED IV ACCESS IN LFA#[id number]. LABS DRAWN AND SENT ([facility], [facility], [facility]) DR ZAVALA IN FOR EVAL. SPUTUM CULTURE COLLECTED
[2017-04-03 20:26] LABS: ABSOLUTE BASOPHIL COUNT 0 /CUMM (0.0-0.2); ABSOLUTE EOSINOPHIL COUNT 0.2 /CUMM (0.0-0.7); ABSOLUTE GRANULOCYTE CT 6.5 /CUMM (1.4-6.5); ABSOLUTE LYMPH COUNT 1.3 /CUMM (1.2-3.4); ABSOLUTE MONOCYTE COUNT 0.9 /CUMM (0.10-0.60); BASOPHIL % 0.2 % (0.0-2.0); EOSINOPHIL % 2.8 % (0-5); GRANULOCYTE % 72.1 % (42.2-75.2); HEMATOCRIT 20.2 % (37-47); MEAN CORPUSCULAR HGB 30.9 PG (27.0-31.0); MEAN CORPUSCULAR HGB CONC 31.1 G/DL (33.0-37.0); MEAN CORPUSCULAR VOLUME 99.4 FL (81.0-99.0); MEAN PLATELET VOLUME 5.9 FL (7.4-10.4); PLATELET COUNT 789 /CUMM (130-400); RBC DISTRIBUTION WIDTH 17.8 % (11.5-14.5); RED BLOOD CELL CT 2.04 /CUMM (4.20-5.40)
--- NOTE | 2017-04-03 20:29 | NUR ---
CRITICAL TEST RESULTS [id number] STEPH LEOS 67 F TESTS AND RESULTS: HGB 6.3 Results received and read back by: AIMEE DUTTA Results received date and time: 04/03/172028 The following provider was notified of the results, and read the results back: DR ZAVALA Notified date and time: 04/03/17 at 2028
[2017-04-03] MEDS ORDERED: TIKOSYN250 MCG PO (20:34)
[2017-04-03] MEDS ORDERED: FUROSEMIDE40 M1 PO (20:38)
--- NOTE | 2017-04-03 20:57 | NUR ---
BLOOD DRAWN AND SENT TO LAB. [facility].
--- NOTE | 2017-04-03 23:00 | NUR ---
DR GARLAND IN FOR EVAL
--- NOTE | 2017-04-03 23:23 | NUR ---
PT HAS FIRST UNIT OF BLOOD TRANSFUSING AT 90ML/HR.
--- NOTE | 2017-04-03 23:44 | History & Physical ---
See Addendum MITCH ETIENNE,[facility] 04/03/17 6375: General Information and HPI MD Statement: I have seen and personally examined STEPH ESCOBAR and documented this H&P. The patient is a 67 year old F who presented with a patient stated chief complaint of [blood transfusion]. 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 The patient states that she was diagnosed with pneumonia of her right lung with Pseudomonas during her last admission. She states that she has had worsening congestion for 1 week. She also reports fevers, chills, headaches, shortness of breath and abdominal pain at this time. Her sputum has become very yellow and her chronic cough has increased in frequency. The patient states that she was recently at Dr. Woods's for blood work and was found to have a H/H 7.2/21.6. She was scheduled to come back to Dr. Stubbs's office on saturday for transfusion however she would not be able to get a ride. Instead she asked her daughter to bring her into the [facility] ED for her transfusions. In the ED, we informed the patient that the labs revealed a thrombocytosis of 789. The patient states that Dr. Woods has informed her that some of her lab result maybe due to her anemia or possibly malignancy. She reports a history of black tarry stool due to iron supplementation. She states she has constipation and straining. She denies any blood in the toilet. But she does report blood upon wiping intermittently due to hemorrhoids. The patient also states that she has had tried to contact her musculoskeletal physician regarding antibiotic treatment for her Pseudomonas infection of her right lung due to her history of atrial fibrillation on anticoagulants. She states she has tried to contact Dr. London regarding her pseudomonas infection but she states he has told her there was no point in treating her with antibiotics. Allergies/Medications Allergies: Coded Allergies: menotropins (HIVES FROM PERGONAL 11/15/15) apixaban (HEMATOMA TO HIP 02/02/17) 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 diverticulosis Hepatic: NONE Renal: NONE Musculoskeletal: fibromyalgia, osteoarthritis, spinal stenosis Psychiatric: anxiety, depression, PTSD Endocrine: hypothyroidism Blood Disorders: anemia [employer] 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: miscarriage Other Medical Hx: discoid lupus eczema History of MRSA: No History of VRE: No History of CDIFF: No Tetanus Vaccine: 02/07/16 Surgical History Surgical History: appendectomy, hernia repair-hiatal tonsillectomy tonsillectomy , tonsillectomy Past Family/Social History Family History Relations & Conditions if any MOTHER FH: CAD (coronary artery disease) FH: COPD (chronic obstructive pulmonary disease) FH: heart disease FATHER Alzheimer's disease BROTHER FH: CAD (coronary artery disease) BROTHER FH: CAD (coronary artery disease) BROTHER FH: CAD (coronary artery disease) Psychosocial History Who Do You Live With? child Services at Home: Oxygen Primary Language: Khmer Smoking Status: Former Smoker (40 pack year) ETOH Use: denies use Illicit Drug Use: denies illicit drug use Functional Ability ADLs Independent: dressing, eating, toileting, bathing. Ambulation: independent IADLs Independent: shopping, housework, finances, food prep, telephone, transportation , medication admin. Review of Systems Review of Systems Constitutional: Reports: chills, fever. EENTM: Reports: see HPI (headache). Cardiovascular: Denies: chest pain. Respiratory: Reports: cough, short of breath. GI: Reports: abdominal pain. Denies: bloody stool. Exam & Diagnostic Data Last 24 Hrs of Vital Signs/I&O Vital Signs Date Time Temp Pulse Resp B/P B/P Pulse O2 O2 Flow FiO2 Mean Ox Delivery Rate 04/05 0000 Nasal 2.0L Cannula 04/04 2246 98.2 74 18 148/70 98 04/04 2156 74 148/70 04/04 1612 100 Nasal 2.0L Cannula 04/04 1600 Nasal 2.0L Cannula 04/04 1444 98.0 77 18 131/62 96 Nasal 2.0L Cannula 04/04 1442 Nasal 2.0L Cannula 07/13 1417 98.0 66 20 144/67 99 Room Air 04/04 1357 Nasal 2.0L Cannula 04/04 1115 97.0 66 20 160/70 100 Nasal 2.0L Cannula 04/04 0719 97.8 77 18 150/72 96 Nasal 2.0L Cannula 04/04 0631 98 Nasal 2.0L Cannula 04/04 0601 98.1 69 20 158/67 96 Nasal 2.0L Cannula Intake & Output 04/05 0800 04/05 0000 04/04 1600 Intake Total 850 Output Total Balance 850 Intake, Oral 850 Patient 118 lb Weight Weight Reported by Patient Measurement Method Physical Exam General Appearance Alert, Oriented X3, Cooperative, No Acute Distress HEENT Atraumatic, PERRLA, EOMI, CN2-12 intact Neck Supple, no tracheal deviation, or lymphadenopathy Lymphatic R and L inguinal lymphadenopathy Cardiovascular Regular Rate, Normal S1, Normal S2, No Murmurs Lungs diffuse wheezing b/l but louder on the right. diffuse R side crackles Abdomen Normal Bowel Sounds, Soft, No Tenderness Extremities glandular structure on L hip/thigh Vascular Normal Pulses, Pulses Symmetrical Diagnostic Data CXR Results FINDINGS: The cardiac silhouette is not enlarged. The mediastinal and hilar contours are unremarkable. There are neither pleural effusions nor pneumothoraces. There are no consolidations. The lungs are hyperinflated. The osseous structures are unremarkable. IMPRESSION: No evidence for acute disease. Assessment/Plan Assessment: The patient is a 67-year-old female with a pmhx of: afib, cad, chf, htn, hld, LA , COPD@2L, GERD, GI bleed, anxiety, depression, hypothrydoism, and anemia presenting for a request of blood transfusion after blood work at Dr. Woods's revealed an H/H of 7.2/21.6 and treatment of her chronic pseudomonas lung infection. As Ranked By This Provider Problem List: 1. Anemia Assessment/Plan The patient is followed by Dr. Woods. She was recently in Dr. Stubbs's office and found to have a H/H of 7.2/21.6. Her H&H upon admission to the emergency department was 6.3/20.2 respectively. She was scheduled to come back to Dr. Stubbs's office on saturday for transfusion however she would not be able to get a ride. Instead she asked her daughter to bring her into the [facility] ED for her transfusions. She received 2 packed red blood cells. We will continue to monitor her H&H in the morning. The patient's thrombocytosis could be secondary to her iron deficiency anemia since thrombocytosis occurs in iron defiency anemia. We will add troponins 2 in the EKG to rule out any cardiac ischemia as her anemia is a risk factor. We will contact Dr. Woods to help manage the patient. We will inform GI of the patient as a courtesy call to Dr. Orlando. -f/u cbc, trops and ekg -inform GI (Dr. Orlando) as a courtesy call -Heme onc consult with Dr. Woods for futher management 2. 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 We will consult infectious disease and pulmonogy (Dr. London) for further management. We will hold off any antibiotics at this time. The patient's temperature was 97.6 and her white blood cell count was 9.0. -f/u ID consult -f/u pulm consult 3. Afib Assessment/Plan The patient has a history of A. fib. She was found to be in sinus rhythm during exam. EKG revealed sinus rhythm. We will continue her on her tikosyn ( defetilide) and xarelto home dose. -tikosyn (dofetilide) 250 mcg PO BID -xarelto 20 mg po daily 4. HTN (hypertension) Assessment/Plan Patient has history of hypertension. We'll continue on her home medications. -Losartan 50 mg -Furosemide 40 mg twice a day -Diltiazem 180mg BID po 5. HLD (hyperlipidemia) Assessment/Plan Patient reports a history of hyperlipidemia. We will continue her on home medications. -Vitamin E 400 international units daily -Fish oil 1060mg daily po -Pravastatin 40 mg 6. Constipation Assessment/Plan The patient has history of constipation. We will continue her on her home Colace. -Colace 200 mg daily 7. COPD (chronic obstructive pulmonary disease) Assessment/Plan The patient has a history of COPD. She is on 2 L of oxygen at home. We'll continue her home medications. -Spiriva 1 puff daily -Guaifenesin 600 mg daily -Roflumilast 500mcg daily 8. Psychiatric disorder Assessment/Plan The patient has a history of depression/anxiety/ptsd. We will continue her on her home medications. -Sertraline 200 mg -Bupropion 150 mg 9. Thrush Assessment/Plan The patient reports a history of thrush. We will continue her home nystatin swish and swallow. -Nystatin 5ml 4 times po - thrush 10. Hypothyroid Assessment/Plan The patient reports a history of hypothyroidism. We will continue her on her home medications. -Levothyroxine 0.1 mg 11. GERD (gastroesophageal reflux disease) Assessment/Plan The patient reports a history of GERD. We will continue her home medications. -Omeprazole 40 mg 12. IBS (irritable bowel syndrome) Assessment/Plan We will continue her home dicyclomine for IBS. -Dicyclomine 10 mg TID for IBS 13. DVT prophylaxis Assessment/Plan Continue home dosage of rivoraxaban 20 mg po daily -rivoraxaban 20 mg po daily 14. Full code status Assessment/Plan Full code Core Measures/Miscellaneous Acute Coronary Syndrome ACS Diagnosis: No Cerebrovascular Accident CVA/TIA Diagnosis: No Congestive Heart Failure CHF Diagnosis: No VTE (View Protocol) VTE Risk Factors: Acute medical illness, Age > 40 No [facility] [place] VTE prophylaxis d/t: No contraindications No VTE Pharm Prophylaxis d/t: No contraindications VTE Diagnosis: No VTE Type: NONE VTE Confirmed by (Test): NONE Sepsis (View Protocol) Severe Sepsis Present: No Septic Shock Septic Shock Present: No Miscellaneous Documentation Attending Case Discussed With: ROXANNE GARLAND MD Primary Care Physician: DEDE MARION MD Patient sees these Specialists Dr. Orlando, Dr. Woods Level of Patient Care: General Medicine CACHORRO ETIENNE,[facility] 04/04/17 0042: General Information and HPI Allergies/Medications Home Med list Acetaminophen (Arthritis Pain Reliever) 650 MG TABLET.ER 2 TAB PO PRN PAIN ( Reported) Albuterol Sulfate 2.5 MG/3 ML (0.083 %) VIAL.NEB 1 Vial INH/DANIKA 4XDAILY PRN RESPIRATORY (Reported) Alprazolam 0.5 MG TABLET 1 TAB PO BID ANXIETY (Reported) Arformoterol Tartrate (Brovana) 15 MCG/2 ML VIAL.NEB 1 VIAL INH DAILY RESPIRATORY (Reported) Ascorbic Acid (C-1000) 1,000 MG TABLET 1 TAB PO DAILY SUPPLEMENT (Reported) Budesonide (Pulmicort) 0.5 MG/2 ML AMPUL.NEB 1 Vial INH/DANIKA BID COPD ( Reported) Bupropion HCl (Bupropion HCl Sr) 150 MG TABLET.ER 1 TAB PO QAM DEPRESSION ( Reported) Calcium Carbonate/Vitamin D3 (Caltrate 600 + D Tablet) 1 EACH TABLET 2 TAB PO DAILY SUPPLEMENT (Reported) Cholecalciferol (Vitamin D3) (Vitamin D3) 400 UNIT TABLET 1 TAB PO DAILY SUPPLEMENT (Reported) Cyanocobalamin (Vitamin B-12) (B-12) 1,000 MCG TABLET 1 TAB PO DAILY SUPPLEMENT (Reported) Dicyclomine HCl 10 MG CAPSULE 1 CAP PO TID ABD CRAMPING (Reported) Diltiazem HCl (Diltiazem ER) 180 MG CAPSULE.ER 1 TAB PO BID HEART (Reported) Docusate Sodium (Colace) 100 MG CAPSULE 2 CAP PO QPM STOOL SOFTENER (Reported ) Dofetilide (Tikosyn) 250 MCG CAPSULE 1 CAP PO BID HEART (Reported) Ezetimibe (Zetia) 10 MG TABLET 1 TAB PO QPM CHOLESTEROL (Reported) Ferrous Sulfate 325 MG (65 MG IRON) TABLET 1 TAB PO TID SUPPLEMENT (Reported) Fluticasone/Salmeterol (Advair 250-50 Diskus) 250 MCG-50 MCG/DOSE BLST.W.DEV 1 PUF INH BID BREATHING PROBLEMS (Reported) Folic Acid 1 MG TABLET 1 TAB PO DAILY SUPPLEMENT (Reported) Furosemide 40 MG TABLET 1 TAB PO BID DIURETIC (Reported) Guaifenesin (Mucinex) 600 MG TAB.ER.12H 1 TAB PO DAILY EXPECTORANT (Reported) Levothyroxine Sodium 100 MCG TABLET 1 TAB PO DAILY AC THYROID (Reported) Losartan Potassium 50 MG TABLET 1 TAB PO QHS BP (Reported) Montelukast Sodium 10 MG TABLET 1 TAB PO DAILY COPD (Reported) Nitroglycerin (Nitro-Dur) 0.6 MG/HOUR PATCH.TD24 1 PATCH TOP DAILY HEART ( Reported) Nystatin 100,000 UNIT/ML ORAL.SUSP 5 ML PO 4 TIMES/DAY oral rash . [place]-3 Fatty Acids/Fish Oil (Fish Oil 1,200 MG Softgel) 360 MG-1,200 MG CAPSULE.DR 1 CAP PO DAILY SUPPLEMENT (Reported) Omeprazole 40 MG CAPSULE.DR 1 CAP PO DAILY GI (Reported) Potassium Chloride 20 MEQ TAB.ER.PRT 1 TAB PO DAILY SUPPLEMENT (Reported) Pravastatin Sodium (Pravachol) 40 MG TABLET 1 TAB PO QPM CHOLESTEROL ( Reported) Rivaroxaban (Xarelto) 20 MG TABLET 1 TAB PO DAILY BLOOD THINNER (Reported) with food Roflumilast (Daliresp) 500 MCG TABLET 1 TAB PO DAILY COPD (Reported) Sertraline HCl (Zoloft) 100 MG TABLET 2 TAB PO DAILY DEPRESSION (Reported) Tiotropium [place] (Spiriva) 18 MCG CAP.W.DEV 1 CAP INH DAILY copd Reason to Stop at ADM:[facility] NEBS ORDERS Vitamin E (Dl,Tocopheryl Acet) (Vitamin E) 400 UNIT CAPSULE 1 TAB PO DAILY SUPPLEMENT (Reported) Resident Review Statement Resident Statement: examined this patient, discussed with policy intern, agreed with policy intern Other Findings: Ms Escobar is a 67-year-old female with past medical history of PMHx of atrial fibrillation s/p cardioversion on Xarelto, severe COPD on 2 L home oxygen and 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 Woods on the morning of 04/03/2017 and after routine blood work showed her hemoglobin was down to 7.2.She follows up with Dr Woods due to anemia. After this test, she she came into the emergency department for an additional workup. Patient states that over the last few days she has felt that her congestion is continues to do worse. She is expressed a cough productive in nature and producing a significant amount of yellow phlegm. She seems to think that she may have developed a pseudomonal infection. Patient does also reports that over the last few days she has noticed increase increased black tarry stools. She states that this is likely attributed to the iron pills that she is constantly taking. She denies straining of stool and is not C mani blood in the toilet bowl. Occasionally sees blood on toilet paper due to hemorrhoids. She denies any fever although does endorse subjective chills. She also reports a slight fever at 97.4. She denies any nausea or vomiting. She denies any chest pain or vision abnormalities. She denies any dyspnea or dyspnea on exertion. R: She denies any fever although does endorse subjective chills. She also reports a slight fever at 97.4. She denies any nausea or vomiting. She denies any chest pain or vision abnormalities. She denies any dyspnea or dyspnea on exertion. E: HEENT: extraocular motion intact, no nystagmus. Pupils equally round and reactive to light and accommodation. Nose is atraumatic. External auditory canal and Tympanic membranes clear. Pharynx normal. No swelling or edema. Neck: Supple, no lymphadenopathy, normal range of motion without pain or tenderness Back: Nontender, No CVA tenderness. Skin: No appreciable rash on exposed skin, skin appears Flushed. Cardiovascular: Regular rate and rhythm. Respiratory: Chest nontender. No respiratory distress. Diffuse rhonchi and wheezing, R>L. Abdomen: Soft, disended, hyperactive BS, no appreciable organomegaly. Extremity: No edema, no calf tenderness to palpation, normal and equal pulses. Neuro: Alert oriented to person and place,motor sensory normal, CN II to XII wnl. L: Labs were evident WBC 9.0, count H&H 6.3 and 20.2 respectively, platelets 789. 133, potassium 3.9, BUN and creatinine 17 and 0.8. AST 46 ALT 53. I: IMPRESSION: No evidence for acute disease. A/P: This is a 67-year-old female with significant past medical history was presented to the emergency department expressing further management for low H&H which was found the office of Dr. Stubbs. This is likely due to chronic blood loss through history of AVMs. Problem list. Exacerbation of chronic symptomatic anemia. History of hypertension, coronary artery disease, hyperlipidemia, atrial fibrillation. History of COPD and frequent exacerbations for COPD and pneumonia. Keep NPO for now, may need GI intervention in AM, for possible endoscope. IV protonix 40 mg BID. Maintain Two Large IV bore [place]. CBC Q12, LFT in am, BEP in AM. Goal H/H > 8. Inform Dr. Stubbs of patient's admission to the hospital. Consider Abdominal U.S to evaluate for any intraabdominal Patholgy History of atrial fibrillation, continue Xarelto and Tikosyn. Continue Diltiiazem, patient states that her dose has been increased to 180 mg twice a day this was done by her musculoskeletal physician Dr. Naranjo. Continue Cymbalta 20 mg by mouth daily. Continue losartan in a.m. Continue statin and ezetimibe Continue Wellbutrin and Zoloft for depression. The patient does have a history of colonization of Gram negative rods. Inform pulmonology of this admission. May seek recomendations whether antibiotics are warranted, despite a non contributory C-Xray. Patient might be limited interms of antibiotic choices given interactions with her anti arrhythmics. TRC nebs as needed. Patient is a full code. ROXANNE GARLAND 04/04/17 0545: Attending MD Review Statement Attending Statement Attending MD Statement: examined this patient, discuss w/resident/PA/LUTE PACKER OR APPLIER, agreed w/resident/PA/LUTE PACKER OR APPLIER, reviewed EMR data (avail), reviewed images, amended to note Attending Assessment/Plan: CC: I have Pseudomonas in my lungs I want treatment PMH: HTN, HLD, CAD, COPD on 2 L nasal cannula, GERD, OA, colitis, spinal stenosis, hypothyroidism, chronic anemia, A. fib currently on rhythm control medication in sinus rhythm on Xarelto,, heart failure with preserved ejection fraction, Patient followed up with insurance sales representative this morning and her hemoglobin was 7.2, she was suggested to receive 2 units blood transfusion outpatient on Saturday. Meanwhile she noticed worsening of shortness of breath, chest congestion, increased cough and yellow colored sputum production. Patient is aware that she has Pseudomonas in her lungs, did some Internet research and wants antibiotic treatment for the same. Given that she is on a rate control medication which may interact with various antibiotics she called her musculoskeletal physician who suggested her to go to hospital. She gets black colored stool always because she is on iron supplementation. Patient has chronic anemia under investigation was extensively investigated with endoscopy, colonoscopy, double-balloon enteroscopy. "5 spots were found and treated" Still no identifiable cause found yet according to her. She came to hospital for treatment of Pseudomonas and blood transfusion. Otherwise 14 point ROS unremarkable Vitals: Afebrile, pulse in 70s, RR 20, blood pressure 125/63, saturating well on 2 L nasal cannula On exam: A O 3, cooperative, no acute distress, neck supple, JVD normal, she has bilateral inguinal lymphadenopathy no evidence of axillary or cervical lymphadenopathy, she also has a small nodule on the lateral aspect of left thigh which is mobile, no evidence of inflammation. Mucosa moist, no focal neurological deficit, no dependent edema, no obvious skin rashes or inflammation CVS: S1-S2, RRR. RS: Bilateral scattered wheezing with prolonged expiration. Abdomen: Soft, NT, ND, bowel sounds present. Labs: WBC 9.0, hemoglobin 6.3, hematocrit 20.9, platelets 789, BMP unremarkable, AST 46, ALT 53 Otherwise LFT unremarkable. CXR: No evidence for acute disease A and P 67-year-old female with extensive past medical history came to ER for worsening of shortness of breath, respiratory congestion and cough and wants to get treated for Pseudomonas. Meanwhile patient had lab work this morning at hematology office when her hemoglobin was 7.2, she was still feeling weak and tired or she came to ER where her hemoglobin was 6.3. She persistently have black colored stools, rectal examination done by ER physician negative for fecal occult blood. Patient does not appear to be an more than usual respiratory distress, requiring 2 L nasal cannula which is her baseline, no significant leukocytosis, no chest infiltrates, mild scattered wheezing on examination. Patient has been extensively worked up for her anemia outpatient, bone marrow biopsy is awaited according to her. Recent iron studies shows low iron stores, the same time she has inguinal lymphadenopathy which may point towards myeloproliferative process. I explained to her about not treating colonization of Pseudomonas, she is insistent about getting it treated. + Acute on chronic anemia with suspected blood loss + History of COPD + History of HTN, HLD, CAD, GERD, OA, colitis, spinal stenosis, hypothyroidism, chronic anemia, A. fib currently on rhythm control medication in sinus rhythm on Xarelto,, heart failure with preserved ejection fraction - Admit to general medicine - Transfuse 2 units PRBC - Repeat CBC in a.m. - Consult patient's hematocrit are just regarding worsening anemia - Consult Dr. London and infectious diseases upon patient's request for treatment for Pseudomonas - Hold off on any IV steroids and antibiotics for now - Continue scheduled and as necessary albuterol and ipratropium nebulizations Continue all her home medications - Trend EKG and troponin twice - Continue her home dose of Xarelto
--- NOTE | 2017-04-04 00:30 | NUR ---
PT MEDICATED WITH 0.5MG XANEX PO PER EMAR.
--- NOTE | 2017-04-04 01:20 | NUR ---
PT MEDICATED WITH 650MG TYLENOL PO PER EMAR.
--- NOTE | 2017-04-04 02:25 | NUR ---
PTS BLOOD PRODUCT FINISHED INFUSING AT 0218. PT AMBUALTED TO THE BATHROOM WITH STEADY GAIT.
--- NOTE | 2017-04-04 03:00 | NUR ---
PT HAS SECOND UNIT OF BLOOD INFUSING PER ORDERS.
--- NOTE | 2017-04-04 05:46 | Admission Certification ---
Admission Certification Certification Statement - As attending physician, I certify that at the time of - admission, based on clinical presentation, severity of - symptoms, need for further diagnostic testing and - therapeutic interventions, and risk of adverse outcomes - without in-hospital treatment, in my clinical assessment, - this patient requires an acute hospital stay for a minimum - of two nights or longer. I have also considered psychsocial - factors such as support system, advanced age, financial - issues, cognitive issues, and failed out-patient treatments, - past re-admission history, safety of patient, and lack of - compliance as applicable. Specific rationale supporting this admission is: acute on chronic anemia
--- NOTE | 2017-04-04 06:04 | NUR ---
PTS SECOND UNIT OF BLOOD COMPLETED
[2017-04-04 06:13] LABS: ABSOLUTE BASOPHIL COUNT 0.1 /CUMM (0.0-0.2); ABSOLUTE EOSINOPHIL COUNT 0.2 /CUMM (0.0-0.7); ABSOLUTE GRANULOCYTE CT 5.3 /CUMM (1.4-6.5); BASOPHIL % 0.8 % (0.0-2.0); EOSINOPHIL % 2.6 % (0-5); GRANULOCYTE % 69.4 % (42.2-75.2); MEAN CORPUSCULAR HGB 30.4 PG (27.0-31.0); MEAN CORPUSCULAR HGB CONC 32.4 G/DL (33.0-37.0); MEAN PLATELET VOLUME 5.9 FL (7.4-10.4); PLATELET COUNT 783 /CUMM (130-400); RBC DISTRIBUTION WIDTH 20.7 % (11.5-14.5); WHITE BLOOD CELL COUNT 7.6 /CUMM (4.8-10.8)
--- NOTE | 2017-04-04 06:26 | NUR ---
RT IN FOR TREATMENT
[2017-04-04 06:29] LABS: HEMATOCRIT 26.5 % (37-47); MEAN CORPUSCULAR VOLUME 93.8 FL (81.0-99.0); RED BLOOD CELL CT 2.82 /CUMM (4.20-5.40)
--- NOTE | 2017-04-04 07:12 | NUR ---
ASSUMED CARE OF PT AT THIS TIME, PT EATING BREATKFAST AT THIS TIME, OFFERS NO COMPLAINTS. CALL BEATTY IN REACH. AWARE WAITING ON BED ASSIGNEMTN AT THIS TIME
--- NOTE | 2017-04-04 07:19 | Cons- Hematology ---
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 Patient recently saw me in the office and due to worsening anemia is to receive a 2 units red blood cell transfusion as an outpatient. Patient presented to the emergency room with productive cough not associated with fever or rigors. She was minimally short of breath. It should be remembered the patient is anticoagulant Allergies/Medications Allergies: Coded Allergies: menotropins (HIVES FROM PERGONAL 11/15/15) apixaban (HEMATOMA TO HIP 02/02/17) Home Med List: Acetaminophen (Arthritis Pain Reliever) 650 MG TABLET.ER 2 TAB PO PRN PAIN ( Reported) Albuterol Sulfate 2.5 MG/3 ML (0.083 %) VIAL.NEB 1 Vial INH/DANIKA 4XDAILY PRN RESPIRATORY (Reported) Alprazolam 0.5 MG TABLET 1 TAB PO BID ANXIETY (Reported) Arformoterol Tartrate (Brovana) 15 MCG/2 ML VIAL.NEB 1 VIAL INH DAILY RESPIRATORY (Reported) Ascorbic Acid (C-1000) 1,000 MG TABLET 1 TAB PO DAILY SUPPLEMENT (Reported) Budesonide (Pulmicort) 0.5 MG/2 ML AMPUL.NEB 1 Vial INH/DANIKA BID COPD ( Reported) Bupropion HCl (Bupropion HCl Sr) 150 MG TABLET.ER 1 TAB PO QAM DEPRESSION ( Reported) Calcium Carbonate/Vitamin D3 (Caltrate 600 + D Tablet) 1 EACH TABLET 2 TAB PO DAILY SUPPLEMENT (Reported) Cholecalciferol (Vitamin D3) (Vitamin D3) 400 UNIT TABLET 1 TAB PO DAILY SUPPLEMENT (Reported) Cyanocobalamin (Vitamin B-12) (B-12) 1,000 MCG TABLET 1 TAB PO DAILY SUPPLEMENT (Reported) Dicyclomine HCl 10 MG CAPSULE 1 CAP PO TID ABD CRAMPING (Reported) Diltiazem HCl (Diltiazem ER) 180 MG CAPSULE.ER 1 TAB PO BID HEART (Reported) Docusate Sodium (Colace) 100 MG CAPSULE 2 CAP PO QPM STOOL SOFTENER (Reported ) Dofetilide (Tikosyn) 250 MCG CAPSULE 1 CAP PO BID HEART (Reported) Ezetimibe (Zetia) 10 MG TABLET 1 TAB PO QPM CHOLESTEROL (Reported) Ferrous Sulfate 325 MG (65 MG IRON) TABLET 1 TAB PO TID SUPPLEMENT (Reported) Fluticasone/Salmeterol (Advair 250-50 Diskus) 250 MCG-50 MCG/DOSE BLST.W.DEV 1 PUF INH BID BREATHING PROBLEMS (Reported) Folic Acid 1 MG TABLET 1 TAB PO DAILY SUPPLEMENT (Reported) Furosemide 40 MG TABLET 1 TAB PO BID DIURETIC (Reported) Guaifenesin (Mucinex) 600 MG TAB.ER.12H 1 TAB PO DAILY EXPECTORANT (Reported) Levothyroxine Sodium 100 MCG TABLET 1 TAB PO DAILY AC THYROID (Reported) Losartan Potassium 50 MG TABLET 1 TAB PO QHS BP (Reported) Montelukast Sodium 10 MG TABLET 1 TAB PO DAILY COPD (Reported) Nitroglycerin (Nitro-Dur) 0.6 MG/HOUR PATCH.TD24 1 PATCH TOP DAILY HEART ( Reported) Nystatin 100,000 UNIT/ML ORAL.SUSP 5 ML PO 4 TIMES/DAY oral rash . [place]-3 Fatty Acids/Fish Oil (Fish Oil 1,200 MG Softgel) 360 MG-1,200 MG CAPSULE.DR 1 CAP PO DAILY SUPPLEMENT (Reported) Omeprazole 40 MG CAPSULE.DR 1 CAP PO DAILY GI (Reported) Potassium Chloride 20 MEQ TAB.ER.PRT 1 TAB PO DAILY SUPPLEMENT (Reported) Pravastatin Sodium (Pravachol) 40 MG TABLET 1 TAB PO QPM CHOLESTEROL ( Reported) Rivaroxaban (Xarelto) 20 MG TABLET 1 TAB PO DAILY BLOOD THINNER (Reported) with food Roflumilast (Daliresp) 500 MCG TABLET 1 TAB PO DAILY COPD (Reported) Sertraline HCl (Zoloft) 100 MG TABLET 2 TAB PO DAILY DEPRESSION (Reported) Tiotropium [place] (Spiriva) 18 MCG CAP.W.DEV 1 CAP INH DAILY copd Reason to Stop at ADM:[facility] NEBS ORDERS Vitamin E (Dl,Tocopheryl Acet) (Vitamin E) 400 UNIT CAPSULE 1 TAB PO DAILY SUPPLEMENT (Reported) Current Medications: Current Medications Sig/Lana Start time Last Medication Dose Route Stop Time Status Admin Acetaminophen 0 .STK-MED ONE 04/04 0125 DC PO Acetaminophen 650 MG Q6P PRN 04/04 0030 AC 04/04 PO 0120 Albuterol Sulfate 3 ML Q6P PRN 04/04 0015 AC 04/04 INH 0631 Alprazolam 0 .STK-MED ONE 04/04 0026 DC PO Alprazolam 0.5 MG BID 04/04 0003 AC 04/04 PO 04/11 0002 0030 Arformoterol Tartrate 15 MCG BID 04/04 1000 AC INH Bupropion HCl 150 MG QAM 04/04 1000 AC PO Dicyclomine HCl 10 MG TID 04/04 1000 AC PO Diltiazem HCl 180 MG BID 04/04 1000 AC PO Docusate Sodium 200 MG QPM 04/04 2200 AC PO Dofetilide 250 MCG BID 04/04 1000 AC PO Ezetimibe 10 MG QPM 04/04 2200 AC PO Fish Oil 1,050 MG DAILY 04/04 1000 AC PO Furosemide 40 MG BID 04/04 1000 AC PO Guaifenesin 600 MG DAILY 04/04 1000 AC PO Ketorolac 15 MG Q6P PRN 04/04 0030 AC Tromethamine IV 04/09 0029 Levothyroxine Sodium 0.1 MG DAILY AC 04/04 0700 AC PO Losartan Potassium 50 MG AT BEDTIME 04/04 2200 AC PO Morphine Sulfate 2 MG Q4P PRN 04/04 0030 AC IV Nystatin 5 ML 4 TIMES/DAY 04/04 1000 AC PO Omeprazole 40 MG DAILY AC 04/04 0700 AC PO Pravastatin Sodium 40 MG 1700 04/04 1700 CAN PO Rivaroxaban 20 MG DAILY 04/04 1000 AC PO Roflumilast 500 MCG DAILY 04/04 1000 AC PO Sertraline HCl 200 MG DAILY 04/04 1000 AC PO Tiotropium [place] 1 PUF DAILY 04/04 1000 AC INH Vitamin E 400 IU DAILY 04/04 1000 AC PO Review of Systems Review of Systems: Patient denied headaches or dizziness. Patient denied chest pain or hemoptysis. Patient denied nausea Vomiting or abdominal pain. She has chronically dark stools from iron. She denied dysuria or hematuria. 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 child Services at Home: Oxygen Primary Language: Nepalese Smoking Status: Former Smoker (40 pack year) ETOH Use: denies use Illicit Drug Use: denies illicit drug use Functional Ability ADLs Independent: dressing, eating, toileting, bathing. Ambulation: independent IADLs Independent: shopping, housework, finances, food prep, telephone, transportation , medication admin. Exam & Diagnostic Data Vital Signs and I&O Vital Signs Date Time Temp Pulse Resp B/P B/P Pulse O2 O2 Flow FiO2 Mean Ox Delivery Rate 04/04 0631 98 Nasal 2.0L Cannula 04/04 0601 98.1 69 20 158/67 96 Nasal 2.0L Cannula 04/04 0315 97.8 69 20 154/72 98 Nasal 2.0L Cannula 04/04 0300 97.2 66 20 134/67 98 Nasal 2.0L Cannula 04/04 0218 97.8 70 20 126/61 98 Nasal 2.0L Cannula 04/03 2334 97.6 64 20 134/63 100 Room Air 04/03 2304 97.3 67 20 133/68 98 Room Air 2.0L 04/03 2143 97.7 74 16 154/66 99 Nasal 2.0L Cannula 04/03 2046 96 Nasal 2.0L Cannula 04/03 1842 98.0 79 16 125/63 97 Room Air Intake & Output 04/04 0800 04/04 0000 04/03 1600 Intake Total Output Total Balance Patient 118 lb Weight Gen.: in NAD, wearing oxygen ENT: Sclera anicteric Chest: Normal respiratory effort, decreased breath sounds Cor:rapid Abdomen: Soft, bowel sounds present, no tenderness, no rebound Extremities: Without clubbing, cyanosis, or asymmetric edema Neurology: Alert and oriented 3, no gross deficit Last 48 Hours of Lab Results: Laboratory Tests 04/04 Chemistry Sodium (137 - 145 mmol/L) 133 L Potassium (3.5 - 5.1 mmol/L) 3.9 Chloride (98 - 107 mmol/L) 99 Carbon Dioxide (22 - 30 mmol/L) 26 Anion Gap (5 - 16) 9 BUN (7 - 17 mg/dL) 17 Creatinine (0.5 - 1.0 mg/dL) 0.8 Estimated GFR (>60 ml/min) > 60 BUN/Creatinine Ratio (7 - 25 %) 21.3 Glucose (65 - 99 mg/dL) 82 Calcium (8.4 - 10.2 mg/dL) 8.8 Total Bilirubin (0.2 - 1.3 mg/dL) 0.3 AST (14 - 36 U/L) 46 H ALT (9 - 52 U/L) 53 H Alkaline Phosphatase (<127 U/L) 59 Troponin I (< 0.11 ng/ml) 0.03 0.02 Total Protein (6.3 - 8.2 g/dL) 5.4 L Albumin (3.5 - 5.0 g/dL) 3.4 L Globulin (1.9 - 4.2 gm/dL) 2.0 Albumin/Globulin Ratio (1.1 - 2.2 %) 1.7 Hematology CBC w Diff NO MAN DIFF REQ NO MAN DIFF REQ WBC (4.8 - 10.8 /CUMM) 7.6 9.0 RBC (4.20 - 5.40 /CUMM) 2.82 L 2.04 L Hgb (12.0 - 16.0 G/DL) 8.6 L 6.3 *L Hct (37 - 47 %) 26.5 L 20.2 L MCV (81.0 - 99.0 FL) 93.8 99.4 H MCH (27.0 - 31.0 PG) 30.4 30.9 RDW (11.5 - 14.5 %) 20.7 H 17.8 H Plt Count (130 - 400 /CUMM) 783 H 789 H MPV (7.4 - 10.4 FL) 5.9 L 5.9 L Gran % (42.2 - 75.2 %) 69.4 72.1 Lymphocytes % (20.5 - 51.1 %) 13.6 L 14.6 L Monocytes % (1.7 - 9.3 %) 13.6 H 10.3 H Eosinophils % (0 - 5 %) 2.6 2.8 Basophils % (0.0 - 2.0 %) 0.8 0.2 Absolute Granulocytes (1.4 - 6.5 /CUMM) 5.3 6.5 Absolute Lymphocytes (1.2 - 3.4 /CUMM) 1.0 L 1.3 Absolute Monocytes (0.10 - 0.60 /CUMM) 1.0 H 0.9 H Absolute Eosinophils (0.0 - 0.7 /CUMM) 0.2 0.2 Absolute Basophils (0.0 - 0.2 /CUMM) 0.1 0 PUBS MCHC (33.0 - 37.0 G/DL) 32.4 L 31.1 L Imaging/Other Studies: Chest x-ray-no active disease Assessment/Plan Assessment: 1. Chronic anemia with recent exacerbation-status post a 2 units red blood cell transfusion Follow CBC and transfuse as necessary 2. Pulmonary status-as per pulmonary service Recommendations: .. Consult Acknowledgment - Thank you for your consult request.
--- NOTE | 2017-04-04 07:30 | NUR ---
PT MEDEICATED PER EMAR AT THIS TIME. PT C/O HEADACHE AT THIS TIME.
--- NOTE | 2017-04-04 07:32 | PN- Housestaff ---
See Addendum Subjective Follow-up For: Anemia, Pseudomonal colonization, A.fib Subjective: Pt states she came in due to worsening cough and congestion. Has productive cough consisting of yellow sputum with occasional specks of blood. Denies fever, chills, n/v, abdominal pain, chest pain, dysuria, or hematuria. Review of Systems Constitutional: Denies: see HPI. Objective Last 24 Hrs of Vital Signs/I&O Vital Signs Date Time Temp Pulse Resp B/P B/P Pulse O2 O2 Flow FiO2 Mean Ox Delivery Rate 04/04 1115 97.0 66 20 160/70 100 Nasal 2.0L Cannula 04/04 0719 97.8 77 18 150/72 96 Nasal 2.0L Cannula 04/04 0631 98 Nasal 2.0L Cannula 04/04 0601 98.1 69 20 158/67 96 Nasal 2.0L Cannula 04/04 0315 97.8 69 20 154/72 98 Nasal 2.0L Cannula 04/04 0300 97.2 66 20 134/67 98 Nasal 2.0L Cannula 04/04 0218 97.8 70 20 126/61 98 Nasal 2.0L Cannula 04/03 2334 97.6 64 20 134/63 100 Room Air 04/03 2304 97.3 67 20 133/68 98 Room Air 2.0L 04/03 2143 97.7 74 16 154/66 99 Nasal 2.0L Cannula 04/03 2046 96 Nasal 2.0L Cannula 04/03 1842 98.0 79 16 125/63 97 Room Air Intake & Output 04/04 1600 04/04 0800 04/04 0000 Intake Total Output Total Balance Patient 118 lb Weight Physical Exam General Appearance: Alert, Oriented X3, Cooperative, No Acute Distress Cardiovascular: Regular Rate, Normal S1, Normal S2 Lungs: Clear to Auscultation Abdomen: Normal Bowel Sounds, Soft, No Tenderness Extremities: No Edema, Normal Pulses Assessment/Plan Assessment: Pt is a 67 y/o female with PMH of chronic anemia seen by Dr. 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 Stubbs for a transfusion now complaining of increased congestion and sputum production. Patient was admitted to the general medical floor for management of the followin. 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 Stubbs for transfusions as outpatient - pt was unable to make her scheduled appointment and came to the ED: H/H was 6.3/20.2 --> transfusion 2 pRBCs --> repeat H/H: 8.6 -Heme consulted, appreciate recommendations: continue to trend cbc and tranfused as needed 2. 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 We will hold off any antibiotics at this time. Pt has been afebrile with a normal WBC, no findings on CXR or physcial exam, and now change from her baseline oxygen requirements. - we will not start any antibiotics at this time - if we do start in the future must consider what antibiotics may interfere with her antiarrhythmic drugs - will consult ID. appreciate recommendations 3. History of Afib, controlled, now in NSR - EKG revealed sinus rhythm - continue tikosyn (dofetilide) 250 mcg PO BID - continue xarelto 20 mg po daily 4. History of HTN -Losartan 50 mg -Furosemide 40 mg twice a day -Diltiazem 180mg BID po 5. History of HLD -Vitamin E 400 international units daily -Fish oil 1060mg daily po -Pravastatin 40 mg 6. History of Constipation -Colace 200 mg daily 7. History of COPD (chronic obstructive pulmonary disease) - She is on 2 L of oxygen at home. - Spiriva 1 puff daily - Guaifenesin 600 mg daily - Roflumilast 500mcg daily - TRC consulted, receiving duoneb treatments 8. Psychiatric disorder - history of depression/anxiety/ptsd, pt states she has panic attacks - Sertraline 200 mg - Bupropion 150 mg 9. Thrush - history of thrush. We will continue her home nystatin swish and swallow. - Nystatin 5ml 4 times po - thrush 10. History of Hypothyroid - Continue Levothyroxine 0.1 mg 11. History of GERD (gastroesophageal reflux disease) - Continue Omeprazole 40 mg 12. History of IBS (irritable bowel syndrome) - Continue Dicyclomine 10 mg TID for IBS DVT PPX: rivoraxaban 20 mg po daily (on at home) Diet: Regular Code: Full code Problem List: 1. COPD 2. Pseudomonas aeruginosa colonization 3. Afib 4. Constipation 5. Anemia 6. HLD (hyperlipidemia) 7. IBS (irritable bowel syndrome) 8. GERD (gastroesophageal reflux disease) 9. Hypothyroid 10. Thrush 11. Psychiatric disorder Pain Ratin Pain Location: none Pain Goal: Remain pain free Pain Plan: none Tomorrow's Labs & Rationales: none 13. DVT prophylaxis Assessment/Plan Continue home dosage of rivoraxaban 20 mg po daily -rivoraxaban 20 mg po daily 14. Full code status Assessment/Plan Full code
--- NOTE | 2017-04-04 07:35 | NUR ---
PT MEDICATED WITH TYLENOL FOR HEADACHE AT THIS TIME, [place] AND [place] PROVIDED FOR PT AT THIS TIME. PT ATE 100% OF BREAKFAST TRAY.
--- NOTE | 2017-04-04 09:40 | NUR ---
PT MEDICATED PER EMAR AT THIS TIME
--- NOTE | 2017-04-04 10:21 | NUR ---
DR CONKLIN AT BEDSIDE AT THIS TIME
--- NOTE | 2017-04-04 10:37 | NUR ---
MOD PAGED REGARDING DIET ORDER
--- NOTE | 2017-04-04 11:15 | NUR ---
ASSUMED CARE, PT ASKING IF SHE CAN EAT. PAGE OUT TO HYDRATOR OPERATOR. AWAITING CLARIFICATION. Informed waiting has been performed.
--- NOTE | 2017-04-04 11:45 | Cons- Pulmonary ---
See Addendum General Information and HPI Consulting Request Date of Consult: 04/04/17 Requested By: Patient and Dr. Flores Reason for Consult: pseudomonas in sputum hx Source of Information: patient Exam Limitations: no limitations History of Present Illness: 67 year old woman. Known to us from previous visits. Hx of COPD/chronic bronchitis. Recent stay at [place]. Admitted for anemia. She has been having some chronic yellowish phlegm. Hx of pseudomonas colonization. She is feeling at baseline, including a chronic cough and MIRANDA. She is afebrile, stable CXR without evidence of pna and no leukocytosis. She is on Tikosyn which has issues with medications that prolong the QT interval. No fevers, no sick contacts. Allergies/Medications Allergies: Coded Allergies: menotropins (HIVES FROM PERGONAL 11/15/15) apixaban (HEMATOMA TO HIP 02/02/17) Home Med List: Acetaminophen (Arthritis Pain Reliever) 650 MG TABLET.ER 2 TAB PO PRN PAIN ( Reported) Albuterol Sulfate 2.5 MG/3 ML (0.083 %) VIAL.NEB 1 Vial INH/DANIKA 4XDAILY PRN RESPIRATORY (Reported) Alprazolam 0.5 MG TABLET 1 TAB PO BID ANXIETY (Reported) Arformoterol Tartrate (Brovana) 15 MCG/2 ML VIAL.NEB 1 VIAL INH DAILY RESPIRATORY (Reported) Ascorbic Acid (C-1000) 1,000 MG TABLET 1 TAB PO DAILY SUPPLEMENT (Reported) Budesonide (Pulmicort) 0.5 MG/2 ML AMPUL.NEB 1 Vial INH/DANIKA BID COPD ( Reported) Bupropion HCl (Bupropion HCl Sr) 150 MG TABLET.ER 1 TAB PO QAM DEPRESSION ( Reported) Calcium Carbonate/Vitamin D3 (Caltrate 600 + D Tablet) 1 EACH TABLET 2 TAB PO DAILY SUPPLEMENT (Reported) Cholecalciferol (Vitamin D3) (Vitamin D3) 400 UNIT TABLET 1 TAB PO DAILY SUPPLEMENT (Reported) Cyanocobalamin (Vitamin B-12) (B-12) 1,000 MCG TABLET 1 TAB PO DAILY SUPPLEMENT (Reported) Dicyclomine HCl 10 MG CAPSULE 1 CAP PO TID ABD CRAMPING (Reported) Diltiazem HCl (Diltiazem ER) 180 MG CAPSULE.ER 1 TAB PO BID HEART (Reported) Docusate Sodium (Colace) 100 MG CAPSULE 2 CAP PO QPM STOOL SOFTENER (Reported ) Dofetilide (Tikosyn) 250 MCG CAPSULE 1 CAP PO BID HEART (Reported) Ezetimibe (Zetia) 10 MG TABLET 1 TAB PO QPM CHOLESTEROL (Reported) Ferrous Sulfate 325 MG (65 MG IRON) TABLET 1 TAB PO TID SUPPLEMENT (Reported) Fluticasone/Salmeterol (Advair 250-50 Diskus) 250 MCG-50 MCG/DOSE BLST.W.DEV 1 PUF INH BID BREATHING PROBLEMS (Reported) Folic Acid 1 MG TABLET 1 TAB PO DAILY SUPPLEMENT (Reported) Furosemide 40 MG TABLET 1 TAB PO BID DIURETIC (Reported) Guaifenesin (Mucinex) 600 MG TAB.ER.12H 1 TAB PO DAILY EXPECTORANT (Reported) Levothyroxine Sodium 100 MCG TABLET 1 TAB PO DAILY AC THYROID (Reported) Losartan Potassium 50 MG TABLET 1 TAB PO QHS BP (Reported) Montelukast Sodium 10 MG TABLET 1 TAB PO DAILY COPD (Reported) Nitroglycerin (Nitro-Dur) 0.6 MG/HOUR PATCH.TD24 1 PATCH TOP DAILY HEART ( Reported) Nystatin 100,000 UNIT/ML ORAL.SUSP 5 ML PO 4 TIMES/DAY oral rash . [place]-3 Fatty Acids/Fish Oil (Fish Oil 1,200 MG Softgel) 360 MG-1,200 MG CAPSULE.DR 1 CAP PO DAILY SUPPLEMENT (Reported) Omeprazole 40 MG CAPSULE.DR 1 CAP PO DAILY GI (Reported) Potassium Chloride 20 MEQ TAB.ER.PRT 1 TAB PO DAILY SUPPLEMENT (Reported) Pravastatin Sodium (Pravachol) 40 MG TABLET 1 TAB PO QPM CHOLESTEROL ( Reported) Rivaroxaban (Xarelto) 20 MG TABLET 1 TAB PO DAILY BLOOD THINNER (Reported) with food Roflumilast (Daliresp) 500 MCG TABLET 1 TAB PO DAILY COPD (Reported) Sertraline HCl (Zoloft) 100 MG TABLET 2 TAB PO DAILY DEPRESSION (Reported) Tiotropium [place] (Spiriva) 18 MCG CAP.W.DEV 1 CAP INH DAILY copd Reason to Stop at ADM:[facility] NEBS ORDERS Vitamin E (Dl,Tocopheryl Acet) (Vitamin E) 400 UNIT CAPSULE 1 TAB PO DAILY SUPPLEMENT (Reported) Current Medications: Current Medications Sig/Lana Start time Last Medication Dose Route Stop Time Status Admin Acetaminophen 0 .STK-MED ONE 04/04 0738 DC PO Acetaminophen 0 .STK-MED ONE 04/04 0125 DC PO Acetaminophen 650 MG Q6P PRN 04/04 0030 AC 04/04 PO 0735 Albuterol Sulfate 3 ML EVERY 4 HRS/AWAKE 04/04 1200 AC INH Albuterol Sulfate 3 ML Q6P PRN 04/04 0015 DC 04/04 INH 1101 Alprazolam 0 .STK-MED ONE 04/04 0936 DC PO Alprazolam 0 .STK-MED ONE 04/04 0026 DC PO Alprazolam 0.5 MG BID 04/04 0003 AC 04/04 PO 04/11 0002 0940 Arformoterol Tartrate 15 MCG BID 04/04 1000 AC 04/04 INH 1119 Bupropion HCl 150 MG QAM 04/04 1000 AC 04/04 PO 0940 Dicyclomine HCl 10 MG TID 04/04 1000 AC 04/04 PO 0940 Diltiazem HCl 180 MG BID 04/04 1000 AC 04/04 PO 0940 Docusate Sodium 200 MG QPM 04/04 2200 AC PO Dofetilide 250 MCG BID 04/04 1000 AC 04/04 PO 0940 Ezetimibe 10 MG QPM 04/04 2200 AC PO Fish Oil 1,050 MG DAILY 04/04 1000 AC 04/04 PO 0940 Furosemide 40 MG BID 04/04 1000 AC 04/04 PO 0940 Guaifenesin 600 MG DAILY 04/04 1000 AC 04/04 PO 0940 Ketorolac 15 MG Q6P PRN 04/04 0030 AC Tromethamine IV 04/09 0029 Levothyroxine Sodium 0.1 MG DAILY AC 04/04 0700 AC 04/04 PO 0729 Losartan Potassium 50 MG AT BEDTIME 04/04 2200 AC PO Morphine Sulfate 2 MG Q4P PRN 04/04 0030 AC IV Nystatin 5 ML 4 TIMES/DAY 04/04 1000 AC 04/04 PO 0940 Omeprazole 40 MG DAILY AC 04/04 0700 AC 04/04 PO 0729 Pravastatin Sodium 40 MG 1700 04/04 1700 CAN PO Rivaroxaban 20 MG DAILY 04/04 1000 AC 04/04 PO 0940 Roflumilast 500 MCG DAILY 04/04 1000 AC 04/04 PO 0940 Sertraline HCl 200 MG DAILY 04/04 1000 AC 04/04 PO 0940 Tiotropium [place] 1 PUF DAILY 04/04 1000 AC 04/04 INH 0940 Vitamin E 400 IU DAILY 04/04 1000 AC 04/04 PO 0940 Review of Systems Comments 18 point review of systems performed. Pertinent positive and negative findings are in the HPI, otherwise negative. 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 child Services at Home: [facility] Primary Language: Yoruba Smoking Status: Former Smoker (40 pack year) ETOH Use: denies use Illicit Drug Use: denies illicit drug use Functional Ability ADLs Independent: dressing, eating, toileting, bathing. Ambulation: independent IADLs Independent: shopping, housework, finances, food prep, telephone, transportation , medication admin. Exam & Diagnostic Data Last 24 Hrs of Vital Signs/I&O Vital Signs Date Time Temp Pulse Resp B/P B/P Pulse O2 O2 Flow FiO2 Mean Ox Delivery Rate 04/04 07 97.8 77 18 150/72 96 Nasal 2.0L Cannula 04/04 0631 98 Nasal 2.0L Cannula 04/04 0601 98.1 69 20 158/67 96 Nasal 2.0L Cannula 04/04 0315 97.8 69 20 154/72 98 Nasal 2.0L Cannula 04/04 0300 97.2 66 20 134/67 98 Nasal 2.0L Cannula 04/04 0218 97.8 70 20 126/61 98 Nasal 2.0L Cannula 04/03 2334 97.6 64 20 134/63 100 Room Air 04/03 2304 97.3 67 20 133/68 98 Room Air 2.0L 04/03 2143 97.7 74 16 154/66 99 Nasal 2.0L Cannula 04/03 2046 96 Nasal 2.0L Cannula 04/03 1842 98.0 79 16 125/63 97 Room Air Intake & Output 04/04 1600 04/04 0800 04/04 0000 Intake Total Output Total Balance Patient 118 lb Weight Physical Exam Other Physical Findings: gen awake and alert heent ncat cvs s1, s2 lungs rare rhonchi abd soft bs+ ext without edema Last 48 Hrs of Labs/Wan: Laboratory Tests 04/04/17 0559: Troponin I 0.03, CBC w Diff NO MAN DIFF REQ, RBC 2.82 L, MCV 93.8, MCH 30.4, RDW 20.7 H, MPV 5.9 L, Gran % 69.4, Lymphocytes % 13.6 L, Monocytes % 13.6 H , Eosinophils % 2.6, Basophils % 0.8, Absolute Granulocytes 5.3, Absolute Lymphocytes 1.0 L, Absolute Monocytes 1.0 H, Absolute Eosinophils 0.2, Absolute Basophils 0.1, PUBS MCHC 32.4 L 04/03/17 2019: Anion Gap 9, Estimated GFR > 60, BUN/Creatinine Ratio 21.3, Glucose 82, Calcium 8.8, Total Bilirubin 0.3, AST 46 H, ALT 53 H, Alkaline Phosphatase 59, Troponin I 0.02, Total Protein 5.4 L, Albumin 3.4 L, Globulin 2.0, Albumin/ Globulin Ratio 1.7, CBC w Diff NO MAN DIFF REQ, RBC 2.04 L, MCV 99.4 H, MCH 30.9, RDW 17.8 H, MPV 5.9 L, Gran % 72.1, Lymphocytes % 14.6 L, Monocytes % 10.3 H, Eosinophils % 2.8, Basophils % 0.2, Absolute Granulocytes 6.5, Absolute Lymphocytes 1.3, Absolute Monocytes 0.9 H, Absolute Eosinophils 0.2, Absolute Basophils 0, PUBS MCHC 31.1 L Assessment/Plan Impression/Plan: Impression 67 year old woman. Known to us from previous visits. Hx of COPD/chronic bronchitis. Recent stay at [place]. Admitted for anemia. She has been having some chronic yellowish phlegm. Hx of pseudomonas colonization. She is feeling at baseline, including a chronic cough and MIRANDA. She is afebrile, stable CXR without evidence of pna and no leukocytosis. She is on Tikosyn which has issues with medications that prolong the QT interval. No fevers, no sick contacts. Pseudomonas likely represents colonization Patient is requesting an ID evaluation I feel that given no leukocytosis, stable respiratory status, no fevers, and a stable CXR, would opt not to treat the underlying colonization. If she deteriorates however pseudomonas should be considered as a source of a possible future infection. Call with any issues or concerns. TRC/Nebs Consult Acknowledgment - Thank you for your consult request.
--- NOTE | 2017-04-04 12:18 | NUR ---
OK FOR PT TO EAT, REGULAR DIET ORDERED BY HOUSESTAFF. PT'S SPECIFIC LUNCH REQUEST ORDERED.
--- NOTE | 2017-04-04 12:58 | Patient Discharge Instructions ---
Discharge Instructions General Discharge Information You were seen/treated for: ANEMIA Congestion You had these procedures: Blood transfusion nebulizer treatment Watch for these problems: shortness of breath chest pain nausea vomiting bleeding in stool bleeding in urine Special Instructions: 1. follow up with your pcp in one week 2. 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 follow up with GI doc Diet Continue normal diet: Yes Activity Activity Self Limited: Yes Acute Coronary Syndrome Inclusion Criteria At DC or during hospital stay patient has or had the following: ACS DIAGNOSIS No Discharge Core Measures Meds if any: Prescribed or Continued at Discharge Meds if any: NOT Prescribed or Continued at Discharge Congestive Heart Failure Inclusion Criteria At DC or during hospital stay patient has or had the following: CHF DIAGNOSIS No Discharge Core Measures Meds if any: Prescribed or Continued at Discharge Meds if any: NOT Prescribed or Continued at Discharge Cerebrovascular accident Inclusion Criteria At DC or during hospital stay patient has or had the following: CVA/TIA Diagnosis No Discharge Core Measures Meds if any: Prescribed or Continued at Discharge Meds if any: NOT Prescribed or Continued at Discharge Venous thromboembolism Inclusion Criteria VTE Diagnosis No VTE Type NONE VTE Confirmed by (Test) NONE Discharge Core Measures - Per Current guidelines, there needs to be overlap - treatment for the first 5 days of Warfarin therapy. - If discharged on Warfarin prior to 5 days of - overlap therapy, the patient will need to be - assessed for post discharge needs including - *Post discharge parental anticoagulation - *Warfarin and/or parental anticoagulation education - *Follow up date to check INR post discharge At least 5 days overlap therapy as Inpatient No Meds if any: Prescribed or Continued at Discharge Note: Overlap Therapy is Warfarin and Anticoagulant Meds if any: NOT Prescribed or Continued at Discharge
--- NOTE | 2017-04-04 13:32 | NUR ---
PT TO ROOM 207 BED 1
--- NOTE | 2017-04-04 13:55 | NUR ---
REPORT TO INGA RN ON 2NB. ROOM NOT READY, FLOOR WILL CALL WHEN IT IS. Informed waiting has been performed.
--- NOTE | 2017-04-04 13:55 | NUR ---
DR HORTON AT BEDSIDE.
--- NOTE | 2017-04-04 13:57 | NUR ---
PT'S DAUGHTER GINNY [phone] WOULD LIKE TO BE CALLED REGARDING HER MOTHER HAVING PSEUDOMONAS AND QUESTIONNING TREATMENT FOR IT.
--- NOTE | 2017-04-04 14:25 | NUR ---
PT TO FLOOR VIA STRETCHER. ALL PAPERWORK AND BELONGINGS SENT WITH PT. CLINICAL STATUS UNCHANGED.
--- NOTE | 2017-04-04 14:40 | NUR ---
PATIENT ARRIVED TO FLOOR FROM ER VIA STRETCHER; PATIENT IS A/OX3; 2L O2 VIA NC (BASELINE); AMBULATES INDEPENDENTLY; HAS EYEGLASSES ON; PATIENT DENIES SOB; RECIEVED 2 UNITS PRBC IN ER; SKIN INTACT; BRUISES NOTED TO BILATERAL HANDS; IV IN PLACE TO LFA; PATIENT ORIENTED TO ROOM AND CALL BEATTY; ARRIVED TO FLOOR WITH 2 BLACK BAGS FROM HOME; CALL BEATTY AND NEEDS WITHIN REACH; SAFETY MAINTAINED;
[2017-04-04 14:44] VITALS: BP 131/62
--- NOTE | 2017-04-04 14:51 | Cons- Infect Disease ---
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, status post cauterization nearly 2 months prior to admission at [facility], after which she was hospitalized at [place] for Pseudomonas pneumonia, rehospitalized one month prior to admission with an exacerbation of COPD in the setting of anemia, with Pseudomonas again isolated from her sputum culture, treated with Ceftazidime for nearly one week (with Ciprofloxacin discontinued after one day because of the interaction with Tikosyn) and transfused 1 unit of blood, discharged on steroids and off antibiotics, admitted on April 03 after she presented to the emergency room for a blood transfusion because of severe anemia with the complaint of fatigue, increasing cough, with yellow/green sputum and increased oxygen requirements over the past week prior to admission. On admission she was afebrile. Laboratory data revealed a white blood cell count of 9000, H&H 6 and 20, BUN/creatinine 17 and 0.8, AST/ALT 46 and 53. Chest x-ray was negative. She was transfused 2 units of blood overnight and followed off antibiotics. She has remained afebrile since admission. Presently she does complain of persistent fatigue, cough, productive of yellow sputum, and increased shortness of breath. Allergies/Medications Allergies: Coded Allergies: menotropins (HIVES FROM PERGONAL 11/15/15) apixaban (HEMATOMA TO HIP 02/02/17) Home Med List: Acetaminophen (Arthritis Pain Reliever) 650 MG TABLET.ER 2 TAB PO PRN PAIN ( Reported) Albuterol Sulfate 2.5 MG/3 ML (0.083 %) VIAL.NEB 1 Vial INH/DANIKA 4XDAILY PRN RESPIRATORY (Reported) Alprazolam 0.5 MG TABLET 1 TAB PO BID ANXIETY (Reported) Arformoterol Tartrate (Brovana) 15 MCG/2 ML VIAL.NEB 1 VIAL INH DAILY RESPIRATORY (Reported) Ascorbic Acid (C-1000) 1,000 MG TABLET 1 TAB PO DAILY SUPPLEMENT (Reported) Budesonide (Pulmicort) 0.5 MG/2 ML AMPUL.NEB 1 Vial INH/DANIKA BID COPD ( Reported) Bupropion HCl (Bupropion HCl Sr) 150 MG TABLET.ER 1 TAB PO QAM DEPRESSION ( Reported) Calcium Carbonate/Vitamin D3 (Caltrate 600 + D Tablet) 1 EACH TABLET 2 TAB PO DAILY SUPPLEMENT (Reported) Cholecalciferol (Vitamin D3) (Vitamin D3) 400 UNIT TABLET 1 TAB PO DAILY SUPPLEMENT (Reported) Cyanocobalamin (Vitamin B-12) (B-12) 1,000 MCG TABLET 1 TAB PO DAILY SUPPLEMENT (Reported) Dicyclomine HCl 10 MG CAPSULE 1 CAP PO TID ABD CRAMPING (Reported) Diltiazem HCl (Diltiazem ER) 180 MG CAPSULE.ER 1 TAB PO BID HEART (Reported) Docusate Sodium (Colace) 100 MG CAPSULE 2 CAP PO QPM STOOL SOFTENER (Reported ) Dofetilide (Tikosyn) 250 MCG CAPSULE 1 CAP PO BID HEART (Reported) Ezetimibe (Zetia) 10 MG TABLET 1 TAB PO QPM CHOLESTEROL (Reported) Ferrous Sulfate 325 MG (65 MG IRON) TABLET 1 TAB PO TID SUPPLEMENT (Reported) Fluticasone/Salmeterol (Advair 250-50 Diskus) 250 MCG-50 MCG/DOSE BLST.W.DEV 1 PUF INH BID BREATHING PROBLEMS (Reported) Folic Acid 1 MG TABLET 1 TAB PO DAILY SUPPLEMENT (Reported) Furosemide 40 MG TABLET 1 TAB PO BID DIURETIC (Reported) Guaifenesin (Mucinex) 600 MG TAB.ER.12H 1 TAB PO DAILY EXPECTORANT (Reported) Levothyroxine Sodium 100 MCG TABLET 1 TAB PO DAILY AC THYROID (Reported) Losartan Potassium 50 MG TABLET 1 TAB PO QHS BP (Reported) Montelukast Sodium 10 MG TABLET 1 TAB PO DAILY COPD (Reported) Nitroglycerin (Nitro-Dur) 0.6 MG/HOUR PATCH.TD24 1 PATCH TOP DAILY HEART ( Reported) Nystatin 100,000 UNIT/ML ORAL.SUSP 5 ML PO 4 TIMES/DAY oral rash . [place]-3 Fatty Acids/Fish Oil (Fish Oil 1,200 MG Softgel) 360 MG-1,200 MG CAPSULE.DR 1 CAP PO DAILY SUPPLEMENT (Reported) Omeprazole 40 MG CAPSULE.DR 1 CAP PO DAILY GI (Reported) Potassium Chloride 20 MEQ TAB.ER.PRT 1 TAB PO DAILY SUPPLEMENT (Reported) Pravastatin Sodium (Pravachol) 40 MG TABLET 1 TAB PO QPM CHOLESTEROL ( Reported) Rivaroxaban (Xarelto) 20 MG TABLET 1 TAB PO DAILY BLOOD THINNER (Reported) with food Roflumilast (Daliresp) 500 MCG TABLET 1 TAB PO DAILY COPD (Reported) Sertraline HCl (Zoloft) 100 MG TABLET 2 TAB PO DAILY DEPRESSION (Reported) Tiotropium [place] (Spiriva) 18 MCG CAP.W.DEV 1 CAP INH DAILY copd Reason to Stop at ADM:[facility] NEBS ORDERS Vitamin E (Dl,Tocopheryl Acet) (Vitamin E) 400 UNIT CAPSULE 1 TAB PO DAILY SUPPLEMENT (Reported) 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 diverticulosis Hepatic: NONE Renal: NONE Musculoskeletal: fibromyalgia, osteoarthritis, spinal stenosis Psychiatric: anxiety, depression, PTSD Endocrine: hypothyroidism 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 child Services at Home: [facility] Primary Language: Amharic Smoking Status: Former Smoker (40 pack year) ETOH Use: denies use Illicit Drug Use: denies illicit drug use Functional Ability ADLs Independent: dressing, eating, toileting, bathing. Ambulation: independent IADLs Independent: shopping, housework, finances, food prep, telephone, transportation , medication admin. Review of Systems Review of Systems All Other Systems: Reviewed and Negative Exam & Diagnostic Data Last 24 Hrs of Vital Signs/I&O Vital Signs Date Time Temp Pulse Resp B/P B/P Pulse O2 O2 Flow FiO2 Mean Ox Delivery Rate 04/04 1444 98.0 77 18 131/62 96 Nasal 2.0L Cannula 04/04 1442 Nasal 2.0L Cannula 04/04 1417 98.0 66 20 144/67 99 Room Air 04/04 1357 Nasal 2.0L Cannula 04/04 1115 97.0 66 20 160/70 100 Nasal 2.0L Cannula 04/04 0719 97.8 77 18 150/72 96 Nasal 2.0L Cannula 04/04 0631 98 Nasal 2.0L Cannula 04/04 0601 98.1 69 20 158/67 96 Nasal 2.0L Cannula 04/04 0315 97.8 69 20 154/72 98 Nasal 2.0L Cannula 04/04 0300 97.2 66 20 134/67 98 Nasal 2.0L Cannula 04/04 0218 97.8 70 20 126/61 98 Nasal 2.0L Cannula 04/03 2334 97.6 64 20 134/63 100 Room Air 04/03 2304 97.3 67 20 133/68 98 Room Air 2.0L 04/03 2143 97.7 74 16 154/66 99 Nasal 2.0L Cannula 04/03 2046 96 Nasal 2.0L Cannula 04/03 1842 98.0 79 16 125/63 97 Room Air Intake & Output 04/04 1600 04/04 0800 04/04 0000 Intake Total Output Total Balance Patient 118 lb 118 lb Weight Weight Reported by Patient Measurement Method Physical Exam Other Physical Findings: She is awake and alert in no acute distress. She is afebrile. Skin reveals no rash. HEENT exam is negative. Neck is supple with no adenopathy. Lungs are clear. Heart regular rhythm with no murmur. Abdomen is soft, nontender with positive bowel sounds. Back no CVA tenderness. Extremities no cyanosis, clubbing or edema. Neuro is without focality. Last 24 Hours of Lab Results: Laboratory Tests 04/0459 2019 Chemistry Sodium (137 - 145 mmol/L) 133 L Potassium (3.5 - 5.1 mmol/L) 3.9 Chloride (98 - 107 mmol/L) 99 Carbon Dioxide (22 - 30 mmol/L) 26 Anion Gap (5 - 16) 9 BUN (7 - 17 mg/dL) 17 Creatinine (0.5 - 1.0 mg/dL) 0.8 Estimated GFR (>60 ml/min) > 60 BUN/Creatinine Ratio (7 - 25 %) 21.3 Glucose (65 - 99 mg/dL) 82 Calcium (8.4 - 10.2 mg/dL) 8.8 Total Bilirubin (0.2 - 1.3 mg/dL) 0.3 AST (14 - 36 U/L) 46 H ALT (9 - 52 U/L) 53 H Alkaline Phosphatase (<127 U/L) 59 Troponin I (< 0.11 ng/ml) 0.03 0.02 Total Protein (6.3 - 8.2 g/dL) 5.4 L Albumin (3.5 - 5.0 g/dL) 3.4 L Globulin (1.9 - 4.2 gm/dL) 2.0 Albumin/Globulin Ratio (1.1 - 2.2 %) 1.7 Hematology CBC w Diff NO MAN DIFF REQ NO MAN DIFF REQ WBC (4.8 - 10.8 /CUMM) 7.6 9.0 RBC (4.20 - 5.40 /CUMM) 2.82 L 2.04 L Hgb (12.0 - 16.0 G/DL) 8.6 L 6.3 *L Hct (37 - 47 %) 26.5 L 20.2 L MCV (81.0 - 99.0 FL) 93.8 99.4 H MCH (27.0 - 31.0 PG) 30.4 30.9 RDW (11.5 - 14.5 %) 20.7 H 17.8 H Plt Count (130 - 400 /CUMM) 783 H 789 H MPV (7.4 - 10.4 FL) 5.9 L 5.9 L Gran % (42.2 - 75.2 %) 69.4 72.1 Lymphocytes % (20.5 - 51.1 %) 13.6 L 14.6 L Monocytes % (1.7 - 9.3 %) 13.6 H 10.3 H Eosinophils % (0 - 5 %) 2.6 2.8 Basophils % (0.0 - 2.0 %) 0.8 0.2 Absolute Granulocytes (1.4 - 6.5 /CUMM) 5.3 6.5 Absolute Lymphocytes (1.2 - 3.4 /CUMM) 1.0 L 1.3 Absolute Monocytes (0.10 - 0.60 /CUMM) 1.0 H 0.9 H Absolute Eosinophils (0.0 - 0.7 /CUMM) 0.2 0.2 Absolute Basophils (0.0 - 0.2 /CUMM) 0.1 0 PUBS MCHC (33.0 - 37.0 G/DL) 32.4 L 31.1 L Last 24 Hours of Wan Results: Sputum culture April 03 positive for gram-negative rods Diagnostic Data Recent Imaging Findings: Chest x-ray April 03, personally reviewed, negative Assessment/Plan Assessment/Plan Impression: This is a 67-year-old woman with multiple medical problems including 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 The significance of this sputum culture is unclear and suspect it may represent colonization. She has no evidence for pneumonia but it may be difficult to rule out an exacerbation of her COPD given her complaints. Unfortunately quinolones cannot be used because of their interaction with Tikosyn; therefore, treatment will require intravenous antibiotics. Suggestion: 1. Follow-up recent sputum culture 2. Begin Ceftazidime 1 g IV every 8 hours pending above Consult Acknowledgment - Thank you for your consult request.
--- NOTE | 2017-04-04 21:13 | Cons- Cardiology ---
General Information and HPI Consulting Request Date of Consult: 04/04/17 Requested By: ROXANNE GARLAND MD History of Present Illness: Cynthia is a 67 year old female with history of hypertension, dyslipidemia, tobacco abuse, and coronary artery disease, status post inferior wall myocardial infarction which she experienced in 1995. This patient also has severe emphysematous COPD. Finally, this patient has atrial fibrillation. Over the past few days Cynthia has noted increased congestion with yellow sputum and slightly increased shortness of breath compared with her baseline. She is also very tired and was found to be severely anemic. It should be noted that this patient is on a NOAC for her atrial fibrillation. She was just recently cardioverted but is completing the protocol of 4 weeks of anticoagulation post DC cardioversion. Cynthia otherwise is free of palpitations, lightheadedness or chest discomfort. In consideration of Cynthia's diagnosis of atrial fibrillation rate control with chronic anticoagulation was initially tried. Due to multiple issues with bleeding we subsequently cardioverted this patient and placed her on Tikosyn to maintain a sinus rhythm and avoid the need for anticoagulation. It should be noted that this patient also tends to feel much improved when in a sinus rhythm. During a recent hospital we needed to discontinue Tykosyn due to its ineffectiveness in maintaining a sinus rhythm, its proarrhythmia with episodes of NSVT on the medication and its incompatability with Cipro that was needed for treatment of the patient's infection. Cynthia has a 90% ostial PDA on her recent cardiac catheterization. This is a small vessel that is not amenable to PCI. Her other coronaries are patent. Finally, this patient went from [facility] the above [facility] to [facility] where she developed a spontaneous right psoas bleed that occured off anticoagulation. She has also had issues with GI bleeding. It should be noted that this patient underwent a recent cardiac catheterization which showed patent coronaries with a normal EF. At [facility], during an exacerbation of her COPD she did demonstrate mild decompensated CHF and a small rise in cardiac enzymes consistent with NSTEMI. Her episodes of respiratory distress are frequent. It may be recalled that on a prior but recent hospital visit she was found unresponsive with hypertcapneic respiratory failure. Cynthia did have a recent stress test that showed a small fixed inferior defect without ischemia that is not unexpected in the setting of her known 90% occluded PDA. Her EF was normal at 72%. At baseline, Cynthia does have shortness of breath which has been attributed to her COPD. This patient has also had some previous bradycardia which has improved to some degree after stopping metoprolol. In absolute terms, this patient will become winded going up 12 steps or if she goes up a hill. In the past, the patient also reported some mild exertional chest pressure that occurs approximately 2 times a month. The patient's cardiac cath showed a short normal left main. The LAD was a large vessel that wrapped around the apex and supplied scant [id number] transseptal collaterals. The left circumflex was a large vessel with luminal irregularities. The right coronary artery was dominant with a 50% proximal stenosis and a 90% ostial stenosis of the PDA. The RV marginal branch initially had an 80% to 90% stenosis which was reduced post angioplasty to a 70% non flow- limiting stenosis. The RV marginal branch was a large vessel that did appear to go to the inferior wall. The PDA on the other hand was a small vessel, although dominant in distribution. It should be noted that a previous cardiac catheterization was [place] in [address] Tripathi, who also saw evidence of an occluded PDA. Allergies/Medications Allergies: Coded Allergies: menotropins (HIVES FROM PERGONAL 11/15/15) apixaban (HEMATOMA TO HIP 02/02/17) Home Med List: Acetaminophen (Arthritis Pain Reliever) 650 MG TABLET.ER 2 TAB PO PRN PAIN ( Reported) Albuterol Sulfate 2.5 MG/3 ML (0.083 %) VIAL.NEB 1 Vial INH/DANIKA 4XDAILY PRN RESPIRATORY (Reported) Alprazolam 0.5 MG TABLET 1 TAB PO BID ANXIETY (Reported) Arformoterol Tartrate (Brovana) 15 MCG/2 ML VIAL.NEB 1 VIAL INH DAILY RESPIRATORY (Reported) Ascorbic Acid (C-1000) 1,000 MG TABLET 1 TAB PO DAILY SUPPLEMENT (Reported) Budesonide (Pulmicort) 0.5 MG/2 ML AMPUL.NEB 1 Vial INH/DANIKA BID COPD ( Reported) Bupropion HCl (Bupropion HCl Sr) 150 MG TABLET.ER 1 TAB PO QAM DEPRESSION ( Reported) Calcium Carbonate/Vitamin D3 (Caltrate 600 + D Tablet) 1 EACH TABLET 2 TAB PO DAILY SUPPLEMENT (Reported) Cholecalciferol (Vitamin D3) (Vitamin D3) 400 UNIT TABLET 1 TAB PO DAILY SUPPLEMENT (Reported) Cyanocobalamin (Vitamin B-12) (B-12) 1,000 MCG TABLET 1 TAB PO DAILY SUPPLEMENT (Reported) Dicyclomine HCl 10 MG CAPSULE 1 CAP PO TID ABD CRAMPING (Reported) Diltiazem HCl (Diltiazem ER) 180 MG CAPSULE.ER 1 TAB PO BID HEART (Reported) Docusate Sodium (Colace) 100 MG CAPSULE 2 CAP PO QPM STOOL SOFTENER (Reported ) Dofetilide (Tikosyn) 250 MCG CAPSULE 1 CAP PO BID HEART (Reported) Ezetimibe (Zetia) 10 MG TABLET 1 TAB PO QPM CHOLESTEROL (Reported) Ferrous Sulfate 325 MG (65 MG IRON) TABLET 1 TAB PO TID SUPPLEMENT (Reported) Fluticasone/Salmeterol (Advair 250-50 Diskus) 250 MCG-50 MCG/DOSE BLST.W.DEV 1 PUF INH BID BREATHING PROBLEMS (Reported) Folic Acid 1 MG TABLET 1 TAB PO DAILY SUPPLEMENT (Reported) Furosemide 40 MG TABLET 1 TAB PO BID DIURETIC (Reported) Guaifenesin (Mucinex) 600 MG TAB.ER.12H 1 TAB PO DAILY EXPECTORANT (Reported) Levothyroxine Sodium 100 MCG TABLET 1 TAB PO DAILY AC THYROID (Reported) Losartan Potassium 50 MG TABLET 1 TAB PO QHS BP (Reported) Montelukast Sodium 10 MG TABLET 1 TAB PO DAILY COPD (Reported) Nitroglycerin (Nitro-Dur) 0.6 MG/HOUR PATCH.TD24 1 PATCH TOP DAILY HEART ( Reported) Nystatin 100,000 UNIT/ML ORAL.SUSP 5 ML PO 4 TIMES/DAY oral rash . Anderson-3 Fatty Acids/Fish Oil (Fish Oil 1,200 MG Softgel) 360 MG-1,200 MG CAPSULE.DR 1 CAP PO DAILY SUPPLEMENT (Reported) Omeprazole 40 MG CAPSULE.DR 1 CAP PO DAILY GI (Reported) Potassium Chloride 20 MEQ TAB.ER.PRT 1 TAB PO DAILY SUPPLEMENT (Reported) Pravastatin Sodium (Pravachol) 40 MG TABLET 1 TAB PO QPM CHOLESTEROL ( Reported) Rivaroxaban (Xarelto) 20 MG TABLET 1 TAB PO DAILY BLOOD THINNER (Reported) with food Roflumilast (Daliresp) 500 MCG TABLET 1 TAB PO DAILY COPD (Reported) Sertraline HCl (Zoloft) 100 MG TABLET 2 TAB PO DAILY DEPRESSION (Reported) Tiotropium [place] (Spiriva) 18 MCG CAP.W.DEV 1 CAP INH DAILY copd Reason to Stop at ADM:[facility] NEBS ORDERS Vitamin E (Dl,Tocopheryl Acet) (Vitamin E) 400 UNIT CAPSULE 1 TAB PO DAILY SUPPLEMENT (Reported) Review of Systems Review of Systems: A twelve point review of systems is unremarkable. 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 Home Who Do You Live With? child Services at Home: Oxygen Primary Language: Ug[place] Smoking Status: Former Smoker (40 pack year) ETOH Use: denies use Illicit Drug Use: denies illicit drug use Functional Ability ADLs Independent: dressing, eating, toileting, bathing. Ambulation: independent IADLs Independent: shopping, housework, finances, food prep, telephone, transportation , medication admin. Exam & Diagnostic Data Vital Signs and I&O Vital Signs Date Time Temp Pulse Resp B/P B/P Pulse O2 O2 Flow FiO2 Mean Ox Delivery Rate 04/04 1612 100 Nasal 2.0L Cannula 04/04 1444 98.0 77 18 131/62 96 Nasal 2.0L Cannula 04/04 1442 Nasal 2.0L Cannula 04/04 1417 98.0 66 20 144/67 99 Room Air 04/04 1357 Nasal 2.0L Cannula 04/04 1115 97.0 66 20 160/70 100 Nasal 2.0L Cannula 04/04 0719 97.8 77 18 150/72 96 Nasal 2.0L Cannula 04/04 0631 98 Nasal 2.0L Cannula 04/04 0601 98.1 69 20 158/67 96 Nasal 2.0L Cannula 04/04 0315 97.8 69 20 154/72 98 Nasal 2.0L Cannula 04/04 0300 97.2 66 20 134/67 98 Nasal 2.0L Cannula 04/04 0218 97.8 70 20 126/61 98 Nasal 2.0L Cannula 04/03 2334 97.6 64 20 134/63 100 Room Air 04/03 2304 97.3 67 20 133/68 98 Room Air 2.0L 04/03 2143 97.7 74 16 154/66 99 Nasal 2.0L Cannula Intake & Output 04/04 1600 04/04 0800 04/04 0000 04/03 1600 04/03 0800 04/03 0000 Intake Total Output Total Balance Patient 118 lb 118 lb Weight Weight Reported by Patient Measurement Method Physical Exam: General: WD/ WN female in NAD; alert and oriented x 3 HEENT: NC/AT, PERRL, EOMI Neck: +ve JVD, no carotid bruit Heart: RRR w/o murmur Lungs: decreased breath sounds bilaterally with upper airway congestion and mild wheezing Abdomen: soft, NT, +ve bowel sounds Extremities: no edema Assessment/Plan Assessment/Plan * This patient has worsening of her breathing since stopping her antibiotic therapy. She was previously treated for pseudomonas using Iv antibiotics in the hospital. Due to Cipro's incompatibility with Tikosyn she did not continue outpatient antibiotic therapy resulting in a return of her symptoms. It is understood that there is some consideration that the pseudomonas may be a benign colonizer. It the patient does need to be treated for this infection she will need IV antibiotics and if additional days of therapy are needed she will need a PICC line placed. * The patient's primary symptom is fatigue that is almost certainly related to her severe anemia. We will need to stop her chronic anticoagulation a bit early. She is maintaining a sinus rhythm. It should be noted that this patient has had multiple episodes of GI bleeding as well as a retroperitoneal bleed and is at risk for chronic anticoagulation. As such, we are trying to maintain a sinus rhythm with Tikosyn so that chronic anticoagulation will not be necessary. * No current evidence of ischemia or decompensated CHF. * There are some reserations in regard to performing an atrial fibrillatin ablation since the patient has high RV pressures. In this setting the ASD made during the A. Fib ablation may not close. Consult Acknowledgment - Thank you for your consult request.
[2017-04-04 22:46] VITALS: BP 148/70
[2017-04-05 06:07] VITALS: BP 140/60
--- NOTE | 2017-04-05 08:07 | PN- Housestaff ---
JULIEN ETIENNE,CHARMAINE 04/05/17 0805: Subjective Follow-up For: Anemia Pseudomonal colonization COPD Subjective: Pt states she is feeling much better today. Still has a productive cough but it is now a light yellow color instead of dark. Pt has a sore throat. Pt denies fever, chills, n/v/c/d, abdominal pain or SOB. Review of Systems Constitutional: Denies: see HPI. Objective Last 24 Hrs of Vital Signs/I&O Vital Signs Date Time Temp Pulse Resp B/P B/P Pulse O2 O2 Flow FiO2 Mean Ox Delivery Rate 04/05 0607 98.2 65 20 140/60 99 Nasal 2.0L Cannula 04/05 0000 Nasal 2.0L Cannula 04/04 2246 98.2 74 18 148/70 98 04/04 2156 74 148/70 04/04 1612 100 Nasal 2.0L Cannula 04/04 1600 Nasal 2.0L Cannula 04/04 1444 98.0 77 18 131/62 96 Nasal 2.0L Cannula 04/04 1442 Nasal 2.0L Cannula 04/04 1417 98.0 66 20 144/67 99 Room Air 04/04 1357 Nasal 2.0L Cannula 04/04 1115 97.0 66 20 160/70 100 Nasal 2.0L Cannula Intake & Output 04/05 1600 04/05 0800 04/05 0000 Intake Total 120 850 Output Total Balance 120 850 Intake, Oral 120 850 Physical Exam General Appearance: Alert, Oriented X3, Cooperative, No Acute Distress Cardiovascular: Regular Rate, Normal S1, Normal S2 Lungs: course breath sounds heard bilaterally on expiration, no wheezing Abdomen: Normal Bowel Sounds, Soft, No Tenderness Extremities: No Edema, Normal Pulses Assessment/Plan Assessment: Pt is a 67 y/o female with PMH of chronic anemia seen by Dr. 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 Stubbs for a transfusion now complaining of increased congestion and sputum production. Patient was admitted to the general medical floor for management of the followin. 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 Stubbs for transfusions as outpatient - pt was unable to make her scheduled appointment and came to the ED: H/H was 6.3/20.2 --> transfusion 2 pRBCs --> repeat H/H: 8.6 -Heme consulted, appreciate recommendations: continue to trend cbc and tranfused as needed 2. Pseudomonas aeruginosa colonization, possibly causing an acute COPD exacerbation with increased sputum production The patient has chronic Pseudomonas colonization w/previous history of pneumonia and treatment for pseudomonas. We will hold off any antibiotics at this time. Pt has been afebrile with a normal WBC, no findings on CXR or physcial exam, and no change from her baseline oxygen requirements. - as per ID: Ceftazidine IV was started yesterday to cover pseudomonos. - Pt remains afebrile with a normal WBC, saturating well at baseline oxygen requirement of 2L NC. Will follow up with ID for recommendations about antibiotics as we are limited in options for PO antibiotics with pseudomonal coverage which will not interfere with tikosyn and possibly convert pt from nsr to a.fib. - will continue antibiotics for a total of 7 days - as patient requires IV antibiotics, she will complete the regimen inpatient 3. History of Afib, controlled, now in NSR - EKG revealed sinus rhythm - continue tikosyn (dofetilide) 250 mcg PO BID - continue xarelto 20 mg po daily 4. History of HTN -Losartan 50 mg -Furosemide 40 mg twice a day -Diltiazem 180mg BID po 5. History of HLD -Vitamin E 400 international units daily -Fish oil 1060mg daily po -Pravastatin 40 mg 6. History of Constipation -Colace 200 mg daily 7. History of COPD (chronic obstructive pulmonary disease) - She is on 2 L of oxygen at home. - Spiriva 1 puff daily - Guaifenesin 600 mg daily - Roflumilast 500mcg daily - TRC consulted, receiving duoneb treatments 8. Psychiatric disorder - history of depression/anxiety/ptsd, pt states she has panic attacks - Sertraline 200 mg - Bupropion 150 mg 9. Thrush - history of thrush. We will continue her home nystatin swish and swallow. - Nystatin 5ml 4 times po - thrush 10. History of Hypothyroid - Continue Levothyroxine 0.1 mg 11. History of GERD (gastroesophageal reflux disease) - Continue Omeprazole 40 mg 12. History of IBS (irritable bowel syndrome) - Continue Dicyclomine 10 mg TID for IBS DVT PPX: rivoraxaban 20 mg po daily (on at home) Diet: Regular Code: Full code Dispo: pending completion of IV antibiotics Problem List: 1. COPD (chronic obstructive pulmonary disease) 2. Atrial fibrillation 3. Pseudomonas aeruginosa colonization 4. Anemia 5. HLD (hyperlipidemia) 6. IBS (irritable bowel syndrome) 7. GERD (gastroesophageal reflux disease) 8. Hypothyroid 9. Psychiatric disorder 10. Thrush 11. Constipation 12. HTN (hypertension) Pain Ratin Pain Location: none Pain Goal: Remain pain free Pain Plan: none Tomorrow's Labs & Rationales: nick COOK MD,REENA 04/05/17 1130: Attending MD Review Statement Attending Statement Attending MD Statement: examined this patient, discuss w/resident/PA/VAMP STRAP IRONER, agreed w/resident/PA/VAMP STRAP IRONER, reviewed EMR data (avail), discussed with nursing, discussed with case mgmt, reviewed images, amended to note Attending Assessment/Plan: Patient seen and examined, claims that she is feeling slightly better today. 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 She still feels somewhat congested. H&H from this am is pending. Vital Signs Date Time Temp Pulse Resp B/P B/P Pulse O2 O2 Flow FiO2 Mean Ox Delivery Rate 04/05 0815 97 Nasal 2.0L Cannula 04/05 0607 98.2 65 20 140/60 99 Nasal 2.0L Cannula 04/05 0000 Nasal 2.0L Cannula 04/04 2246 98.2 74 18 148/70 98 04/04 2156 74 148/70 04/04 1612 100 Nasal 2.0L Cannula 04/04 1600 Nasal 2.0L Cannula 04/04 1444 98.0 77 18 131/62 96 Nasal 2.0L Cannula 04/04 1442 Nasal 2.0L Cannula 04/04 1417 98.0 66 20 144/67 99 Room Air 04/04 1357 Nasal 2.0L Cannula on exam; aox3, nad. cv; s1, s2, rrr resp; + junky bs. abd; soft, nt, bs+ ext; no edema. Labs pending. 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 Patient also growing Pseudomonas in her sputum. She likely has acute COPD exacerbation, possible bronchitis and currently getting IV ceftaz ID recommendations. Sputum culture growing Pseudomonas for which she is on IV ceftaz. Will discuss with infectious disease about the course of treatment. CBC from this morning pending to monitor the H&H. Patient was resumed back on her Xarelto yesterday. Continue all the other cardiac medications, inhalers and neb treatments. DVT prophylaxis: Pt on Xarelto.
[2017-04-05 13:17] LABS: ABSOLUTE BASOPHIL COUNT 0 /CUMM (0.0-0.2); ABSOLUTE EOSINOPHIL COUNT 0.2 /CUMM (0.0-0.7); ABSOLUTE GRANULOCYTE CT 6.8 /CUMM (1.4-6.5); ABSOLUTE LYMPH COUNT 1.2 /CUMM (1.2-3.4); ABSOLUTE MONOCYTE COUNT 1.1 /CUMM (0.10-0.60); BASOPHIL % 0.2 % (0.0-2.0); EOSINOPHIL % 1.7 % (0-5); GRANULOCYTE % 73.3 % (42.2-75.2); HEMATOCRIT 29.3 % (37-47); MEAN CORPUSCULAR HGB 30.2 PG (27.0-31.0); MEAN CORPUSCULAR HGB CONC 32.1 G/DL (33.0-37.0); MEAN CORPUSCULAR VOLUME 94.2 FL (81.0-99.0); MEAN PLATELET VOLUME 6.3 FL (7.4-10.4); PLATELET COUNT 878 /CUMM (130-400); RBC DISTRIBUTION WIDTH 19.9 % (11.5-14.5); RED BLOOD CELL CT 3.11 /CUMM (4.20-5.40); WHITE BLOOD CELL COUNT 9.2 /CUMM (4.8-10.8)
--- NOTE | 2017-04-05 14:39 | PN- Infect Dx ---
Subjective Subjective: Afebrile. 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 sputum Objective Last 24 Hrs of Vital Signs/I&O Vital Signs Date Time Temp Pulse Resp B/P B/P Pulse O2 O2 Flow FiO2 Mean Ox Delivery Rate 04/05 0815 97 Nasal 2.0L Cannula 04/05 0800 Nasal 2.0L Cannula 04/05 0607 98.2 65 20 140/60 99 Nasal 2.0L Cannula 04/05 0000 Nasal 2.0L Cannula 04/04 2246 98.2 74 18 148/70 98 04/04 2156 74 148/70 04/04 1612 100 Nasal 2.0L Cannula 04/04 1600 Nasal 2.0L Cannula 04/04 1444 98.0 77 18 131/62 96 Nasal 2.0L Cannula 04/04 1442 Nasal 2.0L Cannula Intake & Output 04/05 1600 04/05 0800 04/05 0000 Intake Total 2040 120 850 Output Total Balance 2040 120 850 Intake, IV 0 Intake, Oral 2040 120 850 Number 0 Bowel Movements Physical Exam Other Physical Findings: She appears comfortable in no acute distress Lungs scattered rhonchi bilaterally Heart regular rhythm with no murmur Extremities no cyanosis, clubbing or edema Results Last 24 Hours of Lab Results: Laboratory Tests 04/05 1230 Hematology CBC w Diff MAN DIFF ORDERED WBC (4.8 - 10.8 /CUMM) 9.2 RBC (4.20 - 5.40 /CUMM) 3.11 L Hgb (12.0 - 16.0 G/DL) 9.4 L Hct (37 - 47 %) 29.3 L MCV (81.0 - 99.0 FL) 94.2 MCH (27.0 - 31.0 PG) 30.2 RDW (11.5 - 14.5 %) 19.9 H Plt Count (130 - 400 /CUMM) 878 H MPV (7.4 - 10.4 FL) 6.3 L Gran % (42.2 - 75.2 %) 73.3 Lymphocytes % (20.5 - 51.1 %) 12.5 L Monocytes % (1.7 - 9.3 %) 12.3 H Eosinophils % (0 - 5 %) 1.7 Basophils % (0.0 - 2.0 %) 0.2 Absolute Granulocytes (1.4 - 6.5 /CUMM) 6.8 H Segmented Neutrophils (42.2 - 75.2 %) Pending Absolute Lymphocytes (1.2 - 3.4 /CUMM) 1.2 Absolute Monocytes (0.10 - 0.60 /CUMM) 1.1 H Absolute Eosinophils (0.0 - 0.7 /CUMM) 0.2 Absolute Basophils (0.0 - 0.2 /CUMM) 0 PUBS MCHC (33.0 - 37.0 G/DL) 32.1 L Last 24 Hours of Wan Results: Sputum culture April 03 positive for Pseudomonas sensitive to all antibiotics tested Assessment/Plan Impression: Stable on Ceftazidime Day 1 of treatment for presumed Pseudomonas bronchitis, with temperatures and white blood cell count remaining normal. Suggestion: 1. Continue Ceftazidime to plan on a 5 day course if she continues to show clinical improvement.
[2017-04-05 15:07] VITALS: BP 126/60
--- NOTE | 2017-04-05 18:16 | PN- Pulmonary ---
Subjective HPI/Critical Care Issues: Afebrile. 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 sputum Objective Current Medications: Current Medications Sig/Lana Start time Last Medication Dose Route Stop Time Status Admin Acetaminophen 650 MG Q6P PRN 04/04 0030 AC 04/05 PO 1418 Albuterol Sulfate 3 ML EVERY 4 HRS/AWAKE 04/04 1200 AC 04/05 INH 1706 Alprazolam 0.5 MG BID 04/04 0003 AC 04/05 PO 04/11 0002 0935 Arformoterol Tartrate 15 MCG BID 04/04 1000 AC 04/05 INH 1008 Budesonide/ 2 PUF BID 04/04 1215 AC 04/05 Formoterol Fumarate INH 0929 Bupropion HCl 150 MG QAM 04/04 1000 AC 04/05 PO 0929 Ceftazidime 1,000 MG Q12H 04/04 1800 AC 04/05 IV 1806 Dicyclomine HCl 10 MG TID 04/04 1000 AC 04/05 PO 1631 Diltiazem HCl 180 MG BID 04/04 1000 AC 04/05 PO 0932 Docusate Sodium 200 MG QPM 04/04 2200 AC 04/04 PO 2156 Dofetilide 250 MCG BID 04/05 2200 AC PO Dofetilide 250 MCG BID 04/04 1000 DC 04/05 PO 0929 Ezetimibe 10 MG QPM 04/04 2200 AC 04/04 PO 2157 Fish Oil 1,050 MG DAILY 04/04 1000 AC 04/05 PO 0930 Furosemide 40 MG SEE ADMIN CRITERIA 04/05 2200 CAN PO Furosemide 40 MG 1800 04/05 1800 AC 04/05 PO 1806 Furosemide 40 MG 0600 04/05 0600 AC 04/05 PO 0604 Furosemide 40 MG BID 04/04 1000 DC 04/04 PO 2156 Guaifenesin 600 MG DAILY 04/04 1000 AC 04/05 PO 0929 Ketorolac 15 MG Q6P PRN 04/04 0030 AC Tromethamine IV 04/09 0029 Levothyroxine Sodium 0.1 MG DAILY AC 04/04 0700 AC 04/05 PO 0604 Losartan Potassium 50 MG AT BEDTIME 04/04 2200 AC 04/04 PO 2156 Morphine Sulfate 2 MG Q4P PRN 04/04 0030 AC IV Nystatin 5 ML 4 TIMES/DAY 04/04 1000 AC 04/05 PO 1806 Omeprazole 40 MG DAILY AC 04/04 0700 AC 04/05 PO 0604 Patient Medication 1 ED .STK-MED ONE 04/05 1412 [place] Teaching ED 04/05 1413 Phenol 2 SPRAY Q2P PRN 04/05 1030 AC EXT Polyethylene Glycol 17 GM DAILY PRN 04/04 2215 AC PO Rivaroxaban 20 MG DAILY 04/04 1000 AC 04/05 PO 0928 Roflumilast 500 MCG DAILY 04/04 1000 AC 04/05 PO 0930 Sertraline HCl 200 MG DAILY 04/04 1000 AC 04/05 PO 0929 Tiotropium [place] 1 PUF DAILY 04/04 1000 AC 04/05 INH 0931 Vitamin E 400 IU DAILY 04/04 1000 AC 04/05 PO 0928 Vital Signs & I&O Last 24 Hrs of Vitals and I&O: Vital Signs Date Time Temp Pulse Resp B/P B/P Pulse O2 O2 Flow FiO2 Mean Ox Delivery Rate 04/05 1709 98 Nasal 2.0L Cannula 04/05 1507 98.5 75 20 126/60 98 Nasal 2.0L Cannula 04/05 0815 97 Nasal 2.0L Cannula 04/05 0800 Nasal 2.0L Cannula 04/05 0607 98.2 65 20 140/60 99 Nasal 2.0L Cannula 04/05 0000 Nasal 2.0L Cannula 04/04 2246 98.2 74 18 148/70 98 04/04 2156 74 148/70 Intake & Output 04/05 1600 04/05 0800 04/05 0000 Intake Total 2040 120 850 Output Total Balance 2040 120 850 Intake, IV 0 Intake, Oral 2040 120 850 Number 0 Bowel Movements Impression/Plan Impression/Plan Impression/Plan: She appears comfortable in no acute distress Lungs scattered rhonchi bilaterally Heart regular rhythm with no murmur Extremities no cyanosis, clubbing or edema IMPRESSION COPD/chronic bronchitis. Recent stay at [place]. Admitted for anemia. She has been having some chronic yellowish phlegm. Hx of pseudomonas colonization. She is feeling at baseline, including a chronic cough and MIRANDA. Bronchitis presumed pseudomonas REC ceftaz per id, prob can change to po cipro Increase activity nebs No need for systemic steroids Will follow
--- NOTE | 2017-04-05 19:37 | Event Note ---
Event Note Event Note: I have seen and examined the patient. She is sitting comfortably in the bed and reading a novel. I was paged by the nurse requesting that patient would like a nitroglycerin patch. I went and saw her she told me that she takes a nitroglycerin patch at home and wants to continue it during her hospital stay. It it will make her feel better and considering her history of CAD. She does not have any chest pain at this moment. Her vitals are stable. I sat with her and chated for a couple of minutes. Otherwise she seems to be doing fine. 0.1mg Nitro patch order placed
--- NOTE | 2017-04-05 20:40 | PN- Cardiology ---
Subjective Subjective: * Breathing improved with less congestion. * sinus rhythm Objective Vital Signs and I&Os Vital Signs Date Time Temp Pulse Resp B/P B/P Pulse O2 O2 Flow FiO2 Mean Ox Delivery Rate 04/05 2010 Nasal 2.0L Cannula 04/05 1709 98 Nasal 2.0L Cannula 04/05 1600 Nasal 2.0L Cannula 04/05 1507 98.5 75 20 126/60 98 Nasal 2.0L Cannula 04/05 0815 97 Nasal 2.0L Cannula 04/05 0800 Nasal 2.0L Cannula 04/05 0607 98.2 65 20 140/60 99 Nasal 2.0L Cannula 04/05 0000 Nasal 2.0L Cannula 04/04 2246 98.2 74 18 148/70 98 04/04 2156 74 148/70 Intake & Output 04/05 0800 04/05 0000 04/04 0804/04 0000 Intake Total 2040 120 850 Output Total Balance 2040 120 850 Intake, IV 0 Intake, Oral 2040 120 850 Number 0 Bowel Movements Patient 118 lb 118 lb Weight Weight Reported by Patient Measurement Method Physical Exam: General: WD/ WN female in NAD; alert and oriented x 3 HEENT: NC/AT, PERRL, EOMI Neck: +ve JVD, no carotid bruit Heart: RRR w/o murmur Lungs: decreased breath sounds bilaterally with upper airway congestion Abdomen: soft, NT, +ve bowel sounds Extremities: no edema Assessment/Plan Assessment/Plan * Patient does appear improved with antibiotics. It is difficult to know if her pseudomonas is a benign colonizer or a more active infection. For now continue a course of IV antibiotics. * Do not use Cipro. It is pro-arrhythmic in association with Tikosyn. * Restart NTG patch at usual dose of 0.4mg/hr, not 0.1mg/hr. Continue telemetry? Yes
[2017-04-05 23:10] VITALS: BP 132/68
[2017-04-06 06:16] VITALS: BP 118/62
--- NOTE | 2017-04-06 07:18 | PN- Housestaff ---
See Addendum Subjective Follow-up For: pseudomonas in [facility] Subjective: Pt state that she feels wee today. No overnight events or complaints. Review of Systems Constitutional: Denies: chills, fever, weakness. EENTM: Reports: no symptoms. Cardiovascular: Denies: chest pain, palpitations. Respiratory: Reports: short of breath. Denies: cough. Gastrointestinal: Reports: no symptoms. Genitourinary: Reports: no symptoms. Musculoskeletal: Reports: no symptoms. Skin: Reports: no symptoms. Objective Last 24 Hrs of Vital Signs/I&O Vital Signs Date Time Temp Pulse Resp B/P B/P Pulse O2 O2 Flow FiO2 Mean Ox Delivery Rate 04/06 0616 98.2 62 20 118/62 97 04/06 0000 Nasal 2.0L Cannula 04/05 2310 97.9 70 18 132/68 98 Nasal 2.0L Cannula 04/05 2124 70 132/68 04/05 2010 Nasal 2.0L Cannula 04/05 1709 98 Nasal 2.0L Cannula 04/05 1600 Nasal 2.0L Cannula 04/05 1507 98.5 75 20 126/60 98 Nasal 2.0L Cannula 04/05 0815 97 Nasal 2.0L Cannula 04/05 0800 Nasal 2.0L Cannula Intake & Output 04/06 0800 04/06 0000 04/05 1600 Intake Total 2040 Output Total Balance 2040 Intake, IV 0 Intake, Oral 2040 Number 0 Bowel Movements Physical Exam General Appearance: Alert, Oriented X3, Cooperative, No Acute Distress Sepsis Skin Exam (color): Normal for Ethnicity HEENT: Atraumatic, PERRLA, EOMI Cardiovascular: Regular Rate, Normal S1, Normal S2 Lungs: Normal Air Movement Abdomen: Soft, No Tenderness Neurological: Normal Speech Current Medications: Current Medications Sig/Lana Start time Last Medication Dose Route Stop Time Status Admin Acetaminophen 650 MG .STK-MED ONE 04/05 1419 DC PO 04/05 1420 Acetaminophen 650 MG Q6P PRN 04/04 0030 AC 04/05 PO 1418 Albuterol Sulfate 3 ML EVERY 4 HRS/AWAKE 04/04 1200 AC 04/05 INH 2008 Alprazolam 0.5 MG BID 04/04 0003 AC 04/05 PO 04/11 0002 2125 Arformoterol Tartrate 15 MCG BID 04/04 1000 AC 04/05 INH 2008 Budesonide/ 2 PUF BID 04/04 1215 AC 04/05 Formoterol Fumarate INH 2122 Bupropion HCl 150 MG QAM 04/04 1000 AC 04/05 PO 0929 Ceftazidime 1,000 MG Q12H 04/04 1800 AC 04/06 IV 0618 Dicyclomine HCl 10 MG TID 04/04 1000 AC 04/05 PO 2123 Diltiazem HCl 180 MG BID 04/04 1000 AC 04/05 PO 2123 Docusate Sodium 200 MG QPM 04/04 2200 AC 04/05 PO 2124 Dofetilide 250 MCG BID 04/05 2200 AC 04/05 PO 2123 Dofetilide 250 MCG BID 04/04 1000 DC 04/05 PO 0929 Ezetimibe 10 MG QPM 04/04 2200 AC 04/05 PO 2125 Fish Oil 1,050 MG DAILY 04/04 1000 AC 04/05 PO 0930 Furosemide 40 MG 1800 04/05 1800 AC 04/05 PO 1806 Furosemide 40 MG 0600 04/05 0600 AC 04/06 PO 0618 Guaifenesin 600 MG DAILY 04/04 1000 AC 04/05 PO 0929 Ketorolac 15 MG Q6P PRN 04/04 0030 AC Tromethamine IV 04/09 0029 Levothyroxine Sodium 0.1 MG DAILY AC 04/04 0700 AC 04/06 PO 0618 Losartan Potassium 50 MG AT BEDTIME 04/04 2200 AC 04/05 PO 2124 Morphine Sulfate 2 MG Q4P PRN 04/04 0030 AC 04/05 IV 2200 Nitroglycerin 0.4 MG DAILY PRN 04/06 0046 AC TOP Nitroglycerin 0.1 MG DAILY PRN 04/05 1930 DC TOP Nystatin 5 ML 4 TIMES/DAY 04/04 1000 AC 04/05 PO 2125 Omeprazole 40 MG DAILY AC 04/04 0700 AC 04/06 PO 0618 Patient Medication 1 ED .STK-MED ONE 04/05 1412 DC Teaching ED 04/05 1413 Phenol 2 SPRAY Q2P PRN 04/05 1030 AC EXT Polyethylene Glycol 17 GM DAILY PRN 04/04 2215 AC 04/05 PO 2125 Rivaroxaban 20 MG DAILY 04/04 1000 AC 04/05 PO 0928 Roflumilast 500 MCG DAILY 04/04 1000 AC 04/05 PO 0930 Sertraline HCl 200 MG DAILY 04/04 1000 AC 04/05 PO 0929 Tiotropium [place] 1 PUF DAILY 04/04 1000 AC 04/05 INH 0931 Vitamin E 400 IU DAILY 04/04 1000 AC 04/05 PO 0928 Last 24 Hrs of Lab/Wan Results Last 24 Hrs of Labs/Mics: Laboratory Tests 04/05/17 1230: CBC w Diff MAN DIFF ORDERED, RBC 3.11 L, MCV 94.2, MCH 30.2, RDW 19.9 H, MPV 6.3 L, Gran % 73.3, Lymphocytes % 12.5 L, Monocytes % 12.3 H, Eosinophils % 1.7, Basophils % 0.2, Absolute Granulocytes 6.8 H, Absolute Lymphocytes 1.2, Absolute Monocytes 1.1 H, Absolute Eosinophils 0.2, Absolute Basophils 0, Platelet Estimate INCREASED, Polychromasia 1+, Poikilocytosis 1+, Anisocytosis 1 +, Ovalocytes 1+, Suzanne Cells 1+, PUBS MCHC 32.1 L Assessment/Plan Assessment: Pt is a 67 y/o female with PMH of chronic anemia seen by Dr. 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 Stubbs for a transfusion now complaining of increased congestion and sputum production. 1. 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 Stubbs for transfusions as outpatient -Heme consulted, appreciate recommendations - continue to trend cbc and tranfused as needed - F/U this AM labs 2. Pseudomonas aeruginosa colonization, possibly causing an acute COPD exacerbation with increased sputum production * The patient has chronic Pseudomonas colonization w/previous history of pneumonia and treatment for pseudomonas. * Pt has been afebrile with a normal WBC, no findings on CXR or physcial exam, and no change from her baseline oxygen requirements. * Will start Ceftaz per ID recommendations. Expect ffor course to end on Saturday. Note weare limited in options for PO antibiotics with pseudomonal coverage which will not interfere with tikosyn and possibly convert pt from nsr to a.fib. 3. History of Afib, controlled, now in NSR - EKG revealed sinus rhythm - continue tikosyn (dofetilide) 250 mcg PO BID - continue xarelto 20 mg po daily 4. History of HTN -Losartan 50 mg -Furosemide 40 mg twice a day -Diltiazem 180mg BID po 5. History of HLD -Vitamin E 400 international units daily -Fish oil 1060mg daily po -Pravastatin 40 mg 6. History of Constipation -Colace 200 mg daily 7. History of COPD (chronic obstructive pulmonary disease) - She is on 2 L of oxygen at home. - Spiriva 1 puff daily - Guaifenesin 600 mg daily - Roflumilast 500mcg daily - TRC consulted, receiving duoneb treatments 8. Psychiatric disorder - history of depression/anxiety/ptsd, pt states she has panic attacks - Sertraline 200 mg - Bupropion 150 mg 9. Thrush - history of thrush. We will continue her home nystatin swish and swallow. - Nystatin 5ml 4 times po - thrush 10. History of Hypothyroid - Continue Levothyroxine 0.1 mg 11. History of GERD (gastroesophageal reflux disease) - Continue Omeprazole 40 mg 12. History of IBS (irritable bowel syndrome) - Continue Dicyclomine 10 mg TID for IBS DVT PPX: rivoraxaban 20 mg po daily (on at home) Diet: Regular Code: Full code Dispo: pending completion of IV antibiotics Problem List: 1. COPD Pain Ratin Pain Location: none Pain Goal: Remain pain free Pain Plan: none Tomorrow's Labs & Rationales: cbc DVT/Prophylaxis: pharmacological
--- NOTE | 2017-04-06 13:21 | PN- Pulmonary ---
Subjective HPI/Critical Care Issues: Doing well Sleeping Stable Objective Current Medications: Current Medications Sig/Lana Start time Last Medication Dose Route Stop Time Status Admin Acetaminophen 650 MG .STK-MED ONE 04/05 1419 DC PO 04/05 1420 Acetaminophen 650 MG Q6P PRN 04/04 0030 AC 04/05 PO 1418 Albuterol Sulfate 3 ML EVERY 4 HRS/AWAKE 04/04 1200 AC 04/06 INH 0936 Alprazolam 0.5 MG BID 04/04 0003 AC 04/06 PO 04/11 0002 0906 Arformoterol Tartrate 15 MCG BID 04/04 1000 AC 04/06 INH 0936 Budesonide/ 2 PUF BID 04/04 1215 AC 04/06 Formoterol Fumarate INH 0856 Bupropion HCl 150 MG QAM 04/04 1000 AC 04/06 PO 0859 Ceftazidime 1,000 MG Q12H 04/04 1800 AC 04/06 IV 0618 Dicyclomine HCl 10 MG TID 04/04 1000 AC 04/06 PO 0859 Diltiazem HCl 180 MG BID 04/04 1000 AC 04/06 PO 0900 Docusate Sodium 200 MG QPM 04/04 2200 AC 04/05 PO 2124 Dofetilide 250 MCG BID 04/05 2200 AC 04/06 PO 0859 Ezetimibe 10 MG QPM 04/04 2200 AC 04/05 PO 2125 Fish Oil 1,050 MG DAILY 04/04 1000 AC 04/06 PO 0858 Furosemide 40 MG 1800 04/05 1800 AC 04/05 PO 1806 Furosemide 40 MG 0600 04/05 0600 AC 04/06 PO 0618 Guaifenesin 600 MG DAILY 04/04 1000 AC 04/06 PO 0900 Ketorolac 15 MG Q6P PRN 04/04 0030 AC Tromethamine IV 04/09 0029 Levothyroxine Sodium 0.1 MG DAILY AC 04/04 0700 AC 04/06 PO 0618 Losartan Potassium 50 MG AT BEDTIME 04/04 2200 AC 04/05 PO 2124 Morphine Sulfate 2 MG Q4P PRN 04/04 0030 AC 04/06 IV 0906 Nitroglycerin 0.4 MG DAILY PRN 04/06 0046 AC 04/06 TOP 0857 Nitroglycerin 0.1 MG DAILY PRN 04/05 1930 DC TOP Nystatin 5 ML 4 TIMES/DAY 04/04 1000 AC 04/06 PO 0857 Omeprazole 40 MG DAILY AC 04/04 0700 AC 04/06 PO 0618 Patient Medication 1 ED .STK-MED ONE 04/05 1412 OK Teaching ED 04/05 1413 Phenol 2 SPRAY Q2P PRN 04/05 1030 AC 04/06 EXT 0859 Polyethylene Glycol 17 GM DAILY PRN 04/04 2215 AC 04/05 PO 2125 Rivaroxaban 20 MG DAILY 04/04 1000 AC 04/06 PO 0857 Roflumilast 500 MCG DAILY 04/04 1000 AC 04/06 PO 0900 Sertraline HCl 200 MG DAILY 04/04 1000 AC 04/06 PO 0859 Tiotropium [place] 1 PUF DAILY 04/04 1000 AC 04/06 INH 0858 Vitamin E 400 IU DAILY 04/04 1000 AC 04/06 PO 0900 Vital Signs & I&O Last 24 Hrs of Vitals and I&O: Vital Signs Date Time Temp Pulse Resp B/P B/P Pulse O2 O2 Flow FiO2 Mean Ox Delivery Rate 04/06 0946 97 Nasal 2.0L Cannula 04/06 0800 Nasal 2.0L Cannula 04/06 0616 98.2 62 20 118/62 97 04/06 0000 Nasal 2.0L Cannula 04/05 2310 97.9 70 18 132/68 98 Nasal 2.0L Cannula 04/05 2124 70 132/68 04/05 2010 Nasal 2.0L Cannula 04/05 1709 98 Nasal 2.0L Cannula 04/05 1600 Nasal 2.0L Cannula 04/05 1507 98.5 75 20 126/60 98 Nasal 2.0L Cannula Impression/Plan Impression/Plan Impression/Plan: She appears comfortable in no acute distress Lungs scattered rhonchi bilaterally Heart regular rhythm with no murmur Extremities no cyanosis, clubbing or edema IMPRESSION COPD/chronic bronchitis. Recent stay at [place]. Admitted for anemia. She has been having some chronic yellowish phlegm. Hx of pseudomonas colonization. She is feeling at baseline, including a chronic cough and MIRANDA. Bronchitis presumed pseudomonas REC ceftaz per id, Cannot use cipro due to muliple issues including drug interaction Increase activity nebs No need for systemic steroids Will follow
[2017-04-06 14:36] VITALS: BP 118/52
--- NOTE | 2017-04-06 15:55 | PN- Infect Dx ---
Subjective Subjective: Afebrile. She continues to note congestion but reports that her sputum has become biological science aide in color. She has no other complaints. Objective Last 24 Hrs of Vital Signs/I&O Vital Signs Date Time Temp Pulse Resp B/P B/P Pulse O2 O2 Flow FiO2 Mean Ox Delivery Rate 04/06 1436 97.8 77 20 118/52 97 Nasal 2.0L Cannula 04/06 0946 97 Nasal 2.0L Cannula 04/06 0800 Nasal 2.0L Cannula 04/06 0616 98.2 62 20 118/62 97 04/06 0000 Nasal 2.0L Cannula 04/05 2310 97.9 70 18 132/68 98 Nasal 2.0L Cannula 04/05 2124 70 132/68 04/05 2010 Nasal 2.0L Cannula 04/05 1709 98 Nasal 2.0L Cannula 04/05 1600 Nasal 2.0L Cannula Physical Exam Other Physical Findings: She appears comfortable in no acute distress Lungs scattered rhonchi Heart regular rhythm with no murmur Extremities no cyanosis, clubbing or edema Results Last 24 Hours of Lab Results: No labs from today Last 24 Hours of Wan Results: No new cultures Assessment/Plan Impression: Stable on Ceftazidime Day 2 of treatment for presumed Pseudomonas bronchitis, with temperatures and white blood cell count remaining normal and with some subjective improvement in her symptoms. Suggestion: 1. Continue Ceftazidime to plan on a 5 day course as long as she continues to show clinical improvement. Dr. Yusuf will be covering me until April 15
[2017-04-06 18:46] LABS: ABSOLUTE BASOPHIL COUNT 0 /CUMM (0.0-0.2); ABSOLUTE EOSINOPHIL COUNT 0.1 /CUMM (0.0-0.7); ABSOLUTE LYMPH COUNT 1.3 /CUMM (1.2-3.4); ABSOLUTE MONOCYTE COUNT 1.2 /CUMM (0.10-0.60); BASOPHIL % 0.5 % (0.0-2.0); EOSINOPHIL % 1.5 % (0-5); GRANULOCYTE % 69.8 % (42.2-75.2); HEMATOCRIT 25.9 % (37-47); MEAN CORPUSCULAR HGB CONC 32.8 G/DL (33.0-37.0); MEAN CORPUSCULAR VOLUME 94.6 FL (81.0-99.0); MEAN PLATELET VOLUME 6.7 FL (7.4-10.4); RBC DISTRIBUTION WIDTH 18.8 % (11.5-14.5); RED BLOOD CELL CT 2.74 /CUMM (4.20-5.40); WHITE BLOOD CELL COUNT 8.5 /CUMM (4.8-10.8)
[2017-04-06 19:08] LABS: PLATELET COUNT 826 /CUMM (130-400)
[2017-04-06 22:00] VITALS: BP 128/60
[2017-04-07 06:37] VITALS: BP 134/54
[2017-04-07 08:12] LABS: ABSOLUTE BASOPHIL COUNT 0 /CUMM (0.0-0.2); ABSOLUTE EOSINOPHIL COUNT 0.2 /CUMM (0.0-0.7); ABSOLUTE GRANULOCYTE CT 3.3 /CUMM (1.4-6.5); ABSOLUTE LYMPH COUNT 1.3 /CUMM (1.2-3.4); ABSOLUTE MONOCYTE COUNT 0.7 /CUMM (0.10-0.60); BASOPHIL % 0.5 % (0.0-2.0); EOSINOPHIL % 2.9 % (0-5); GRANULOCYTE % 59.7 % (42.2-75.2); HEMATOCRIT 26.1 % (37-47); MEAN CORPUSCULAR HGB 30.3 PG (27.0-31.0); MEAN CORPUSCULAR HGB CONC 31.9 G/DL (33.0-37.0); MEAN CORPUSCULAR VOLUME 94.9 FL (81.0-99.0); MEAN PLATELET VOLUME 6.1 FL (7.4-10.4); PLATELET COUNT 825 /CUMM (130-400); RBC DISTRIBUTION WIDTH 18.4 % (11.5-14.5); RED BLOOD CELL CT 2.75 /CUMM (4.20-5.40); WHITE BLOOD CELL COUNT 5.5 /CUMM (4.8-10.8)
--- NOTE | 2017-04-07 09:08 | PN- Housestaff ---
JULIEN ETIENNE,CHARMAINE 04/07/17 0907: Subjective Follow-up For: Anemia Pseudomonal colonization COPD Subjective: Pt states she is feeling much better today. Pt denies fever, chills, n/v/c/d, abdominal pain or SOB. Review of Systems Constitutional: Denies: see HPI. Cardiovascular: Denies: chest pain. Respiratory: Denies: see HPI. Gastrointestinal: Denies: see HPI. Genitourinary: Denies: dysuria, frequency, hematuria. Objective Last 24 Hrs of Vital Signs/I&O Vital Signs Date Time Temp Pulse Resp B/P B/P Pulse O2 O2 Flow FiO2 Mean Ox Delivery Rate 04/07 2113 128/56 04/07 1744 97 Room Air 04/07 1600 Nasal 2.0L Cannula 04/07 1526 98.2 64 20 134/64 95 Nasal 2.0L Cannula 04/07 0820 94 Nasal 2.0L Cannula 04/07 0800 Nasal 2.0L Cannula 04/07 0637 98.7 61 20 134/54 96 04/07 0000 100 Nasal 2.0L Cannula 04/06 2200 98.3 70 18 128/60 100 Nasal 2.0L Cannula Intake & Output 04/07 1600 04/07 0800 04/07 0000 Intake Total 2059 Output Total Balance 2059 Intake, IV 20 Intake, Oral 2039 Number 0 Bowel Movements Physical Exam General Appearance: Alert, Oriented X3, Cooperative, No Acute Distress Cardiovascular: Regular Rate, Normal S1, Normal S2 Lungs: Clear to Auscultation Abdomen: Normal Bowel Sounds, Soft, No Tenderness Extremities: Normal Pulses Assessment/Plan Assessment: Pt is a 67 y/o female with PMH of chronic anemia seen by Dr. 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 Stubbs for a transfusion now complaining of increased congestion and sputum production. 1. 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 Stubbs for transfusions as outpatient -Heme consulted, appreciate recommendations - continue to trend cbc and tranfused as needed - F/U this AM labs 2. Pseudomonas aeruginosa colonization, possibly causing an acute COPD exacerbation with increased sputum production * The patient has chronic Pseudomonas colonization w/previous history of pneumonia and treatment for pseudomonas. * Pt has been afebrile with a normal WBC, no findings on CXR or physcial exam, and no change from her baseline oxygen requirements. * Will start Ceftaz per ID recommendations. Expect course to end on Saturday AM. Note we are limited in options for PO antibiotics with pseudomonal coverage which will not interfere with tikosyn and possibly convert pt from nsr to a.fib. 3. History of Afib, controlled, now in NSR - EKG revealed sinus rhythm - continue tikosyn (dofetilide) 250 mcg PO BID - continue xarelto 20 mg po daily 4. History of HTN -Losartan 50 mg -Furosemide 40 mg twice a day -Diltiazem 180mg BID po 5. History of HLD -Vitamin E 400 international units daily -Fish oil 1060mg daily po -Pravastatin 40 mg 6. History of Constipation -Colace 200 mg daily 7. History of COPD (chronic obstructive pulmonary disease) - She is on 2 L of oxygen at home. - Spiriva 1 puff daily - Guaifenesin 600 mg daily - Roflumilast 500mcg daily - TRC consulted, receiving duoneb treatments 8. Psychiatric disorder - history of depression/anxiety/ptsd, pt states she has panic attacks - Sertraline 200 mg - Bupropion 150 mg 9. Thrush - history of thrush. We will continue her home nystatin swish and swallow. - Nystatin 5ml 4 times po - thrush 10. History of Hypothyroid - Continue Levothyroxine 0.1 mg 11. History of GERD (gastroesophageal reflux disease) - Continue Omeprazole 40 mg 12. History of IBS (irritable bowel syndrome) - Continue Dicyclomine 10 mg TID for IBS DVT PPX: rivoraxaban 20 mg po daily (on at home) Diet: Regular Code: Full code Dispo: pending completion of IV antibiotics on 04/09/2017 Problem List: 1. HLD (hyperlipidemia) 2. IBS (irritable bowel syndrome) 3. GERD (gastroesophageal reflux disease) 4. Hypothyroid 5. Thrush 6. Psychiatric disorder 7. COPD (chronic obstructive pulmonary disease) 8. Pseudomonas aeruginosa colonization 9. Afib Pain Ratin Pain Location: none Pain Goal: Remain pain free Pain Plan: none Tomorrow's Labs & Rationales: nick COOK MD,REENA 04/07/17 1549: Attending MD Review Statement Attending Statement Attending MD Statement: examined this patient, discuss w/resident/PA/TABBER, agreed w/resident/PA/TABBER, reviewed EMR data (avail), discussed with nursing, discussed with case mgmt, reviewed images, amended to note Attending Assessment/Plan: Patient seen and examined, overall improving. Breathing is improving. Vital Signs Date Time Temp Pulse Resp B/P B/P Pulse O2 O2 Flow FiO2 Mean Ox Delivery Rate 04/07 1526 98.2 64 20 134/64 95 Nasal 2.0L Cannula 04/07 0820 94 Nasal 2.0L Cannula 04/07 0800 Nasal 2.0L Cannula 04/07 0637 98.7 61 20 134/54 96 04/07 0000 100 Nasal 2.0L Cannula 04/06 2200 98.3 70 18 128/60 100 Nasal 2.0L Cannula 04/06 2059 70 128/60 04/06 1800 97 Nasal 2.0L Cannula 04/06 1600 Nasal 2.0L Cannula on exam aox3, nad. cv; s1,s2, rrr resp; clear abd; soft, nt, bs+ ext; no edema. Laboratory Tests 04/07 04/06 0635 1735 Chemistry Sodium (137 - 145 mmol/L) 136 L Potassium (3.5 - 5.1 mmol/L) 4.6 Chloride (98 - 107 mmol/L) 95 L Carbon Dioxide (22 - 30 mmol/L) 32 H Anion Gap (5 - 16) 9 BUN (7 - 17 mg/dL) 22 H Creatinine (0.5 - 1.0 mg/dL) 0.9 Estimated GFR (>60 ml/min) > 60 BUN/Creatinine Ratio (7 - 25 %) 24.4 Hematology CBC w Diff NO MAN DIFF REQ NO MAN DIFF REQ WBC (4.8 - 10.8 /CUMM) 5.5 8.5 RBC (4.20 - 5.40 /CUMM) 2.75 L 2.74 L Hgb (12.0 - 16.0 G/DL) 8.3 L 8.5 L Hct (37 - 47 %) 26.1 L 25.9 L MCV (81.0 - 99.0 FL) 94.9 94.6 MCH (27.0 - 31.0 PG) 30.3 31.0 RDW (11.5 - 14.5 %) 18.4 H 18.8 H Plt Count (130 - 400 /CUMM) 825 H 826 H MPV (7.4 - 10.4 FL) 6.1 L 6.7 L Gran % (42.2 - 75.2 %) 59.7 69.8 Lymphocytes % (20.5 - 51.1 %) 24.2 14.7 L Monocytes % (1.7 - 9.3 %) 12.7 H 13.5 H Eosinophils % (0 - 5 %) 2.9 1.5 Basophils % (0.0 - 2.0 %) 0.5 0.5 Absolute Granulocytes (1.4 - 6.5 /CUMM) 3.3 6.0 Absolute Lymphocytes (1.2 - 3.4 /CUMM) 1.3 1.3 Absolute Monocytes (0.10 - 0.60 /CUMM) 0.7 H 1.2 H Absolute Eosinophils (0.0 - 0.7 /CUMM) 0.2 0.1 Absolute Basophils (0.0 - 0.2 /CUMM) 0 0 PUBS MCHC (33.0 - 37.0 G/DL) 31.9 L 32.8 L A/P; 67 y/o F with pmh sig for afib on Xarelto, cad, chf, htn, hld, [place], ch resp failure, COPD@2L, GERD, anxiety, depression, hypothrydoism, and iron deficiency anemia secondary to small bowel AVMs admitted with acute blood loss anemia on her chronic anemia likely secondary to blood loss from her AVMs but the guaiac was negative. Patient also growing Pseudomonas in her sputum. She likely has acute COPD exacerbation, possible bronchitis and currently getting IV ceftaz ID recommendations. Continue IV ceftaz to complete a total of 5 day course. Continue TRC nebs and other home medications. Including cardiac medications, inhalers. DVT prophylaxis: Xarelto.
--- NOTE | 2017-04-07 13:04 | PN- Pulmonary ---
Subjective HPI/Critical Care Issues: Afebrile. She continues to note congestion but reports that her sputum has become rawhide trimmer in color. She has no other complaints. Objective Current Medications: Current Medications Sig/Lana Start time Last Medication Dose Route Stop Time Status Admin Acetaminophen 650 MG .STK-MED ONE 04/06 1440 DC PO 04/06 1441 Acetaminophen 650 MG Q6P PRN 04/04 0030 AC 04/06 PO 1441 Albuterol Sulfate 3 ML EVERY 4 HRS/AWAKE 04/04 1200 AC 04/07 INH 1210 Alprazolam 0.5 MG BID 04/04 0003 AC 04/07 PO 04/11 0002 0912 Arformoterol Tartrate 15 MCG BID 04/04 1000 AC 04/07 INH 0813 Budesonide/ 2 PUF BID 04/04 1215 AC 04/07 Formoterol Fumarate INH 09 Bupropion HCl 150 MG QAM 04/04 1000 AC 04/07 PO 0912 Ceftazidime 1,000 MG Q12H 04/04 1800 AC 04/07 IV 0557 Dicyclomine HCl 10 MG TID 04/04 1000 AC 04/07 PO 0912 Diltiazem HCl 180 MG BID 04/04 1000 AC 04/07 PO 0913 Docusate Sodium 200 MG QPM 04/04 2200 AC 04/06 PO 2059 Dofetilide 250 MCG BID 04/05 2200 AC 04/07 PO 0914 Ezetimibe 10 MG QPM / 2200 AC 04/06 PO 2059 Fish Oil 1,050 MG DAILY 04/04 1000 AC 04/07 PO 0914 Furosemide 40 MG 1800 04/05 1800 AC 04/06 PO 1727 Furosemide 40 MG 0600 04/05 0600 AC 04/07 PO 0557 Guaifenesin 600 MG DAILY 04/04 1000 AC 04/07 PO 0913 Ketorolac 15 MG Q6P PRN 04/04 0030 AC 04/07 Tromethamine IV 04/09 0029 0919 Levothyroxine Sodium 0.1 MG DAILY AC 04/04 0700 AC 04/07 PO 0557 Losartan Potassium 50 MG AT BEDTIME 04/04 2200 AC 04/06 PO 2059 Morphine Sulfate 2 MG Q4P PRN 04/04 0030 AC 04/07 IV 1038 Nitroglycerin 0.4 MG DAILY PRN 04/06 0046 AC 07/16 TOP 0914 Nystatin 5 ML 4 TIMES/DAY 04/04 1000 AC 04/07 PO 0913 Omeprazole 40 MG DAILY AC 04/04 0700 AC 04/07 PO 0557 Phenol 2 SPRAY Q2P PRN 04/05 1030 AC 04/06 EXT 0859 Polyethylene Glycol 17 GM DAILY PRN 04/04 2215 AC 04/05 PO 2125 Rivaroxaban 20 MG DAILY 04/04 1000 AC 04/07 PO 0913 Roflumilast 500 MCG DAILY 04/04 1000 AC 04/07 PO 0914 Sertraline HCl 200 MG DAILY 04/04 1000 AC 04/07 PO 0912 Tiotropium [place] 1 PUF DAILY 04/04 1000 AC 04/07 INH 0913 Vitamin E 400 IU DAILY 04/04 1000 AC 04/07 PO 0913 Vital Signs & I&O Last 24 Hrs of Vitals and I&O: Vital Signs Date Time Temp Pulse Resp B/P B/P Pulse O2 O2 Flow FiO2 Mean Ox Delivery Rate 04/07 0820 94 Nasal 2.0L Cannula 04/07 0800 Nasal 2.0L Cannula 04/07 0637 98.7 61 20 134/54 96 04/07 0000 100 Nasal 2.0L Cannula 04/06 2200 98.3 70 18 128/60 100 Nasal 2.0L Cannula 04/06 2059 70 128/60 04/06 1800 97 Nasal 2.0L Cannula 04/06 1600 Nasal 2.0L Cannula 04/06 1436 97.8 77 20 118/52 97 Nasal 2.0L Cannula Impression/Plan Impression/Plan Impression/Plan: She appears comfortable in no acute distress Lungs scattered rhonchi bilaterally Heart regular rhythm with no murmur Extremities no cyanosis, clubbing or edema IMPRESSION COPD/chronic bronchitis. Recent stay at [place]. Admitted for anemia. She has been having some chronic yellowish phlegm. Hx of pseudomonas colonization. She is feeling at baseline, including a chronic cough and MIRANDA. Bronchitis presumed pseudomonas REC ceftaz per id, Cannot use cipro due to muliple issues including drug interaction Increase activity nebs No need for systemic steroids Will follow
[2017-04-07 15:26] VITALS: BP 134/64
[2017-04-07 22:24] VITALS: BP 128/56
[2017-04-08 06:46] VITALS: BP 128/50
[2017-04-08 09:35] LABS: ABSOLUTE BASOPHIL COUNT 0 /CUMM (0.0-0.2); ABSOLUTE EOSINOPHIL COUNT 0.1 /CUMM (0.0-0.7); ABSOLUTE GRANULOCYTE CT 3.9 /CUMM (1.4-6.5); ABSOLUTE MONOCYTE COUNT 0.7 /CUMM (0.10-0.60); BASOPHIL % 0.2 % (0.0-2.0); EOSINOPHIL % 1.7 % (0-5); GRANULOCYTE % 67.6 % (42.2-75.2); HEMATOCRIT 24.4 % (37-47); MEAN CORPUSCULAR HGB 30.4 PG (27.0-31.0); MEAN CORPUSCULAR HGB CONC 32.1 G/DL (33.0-37.0); MEAN CORPUSCULAR VOLUME 94.7 FL (81.0-99.0); MEAN PLATELET VOLUME 6.3 FL (7.4-10.4); PLATELET COUNT 788 /CUMM (130-400); RBC DISTRIBUTION WIDTH 17.5 % (11.5-14.5); RED BLOOD CELL CT 2.58 /CUMM (4.20-5.40); WHITE BLOOD CELL COUNT 5.8 /CUMM (4.8-10.8)
--- NOTE | 2017-04-08 10:54 | PN- Cardiology ---
Subjective Subjective: * Patient is improved compared with admission but still reports a congested cough with yellow sputum which is not her baseline. She also report very dark stool. * H/H continues to trend down to 7.8/ 24.4 Objective Vital Signs and I&Os Vital Signs Date Time Temp Pulse Resp B/P B/P Pulse O2 O2 Flow FiO2 Mean Ox Delivery Rate 04/08 0918 98 Nasal 2.0L Cannula 04/08 0800 Nasal 2.0L Cannula 04/08 0646 98.2 64 18 128/50 97 Nasal 2.0L Cannula 04/08 0000 Nasal 2.0L Cannula 04/07 2224 98.0 80 20 128/56 98 Nasal 2.0L Cannula 04/07 2113 128/56 04/07 1744 97 Room Air 04/07 1600 Nasal 2.0L Cannula 04/07 1526 98.2 64 20 134/64 95 Nasal 2.0L Cannula Intake & Output 04/08 1600 04/08 0800 04/08 0000 04/07 1600 04/07 0800 04/07 0000 Intake Total 20 250 2060 Output Total 500 Balance 20 -250 2060 Intake, IV 20 10 20 Intake, Oral 240 2040 Number 0 Bowel Movements Output, Urine 500 Physical Exam: General: WD/ WN female in NAD; alert and oriented x 3 Heart: RRR w/o murmur Lungs: no crackles, upper airway congestion noted Extremities: no edema Assessment/Plan Assessment/Plan * Patient does appear improved with antibiotics but is not yet to her baseline. It is difficult to know if her pseudomonas is a benign colonizer or a more active infection but she did appear to improve with antibiotics. Cipro may not be used in combination with her dofetilide due to the potential for pro- arrhythmia. I would consider continuing antibiotic therapy until patient's sputum clears since she cannot receive oral antibiotics or to place a PICC line for a few more days of IV antibiotics. * Restart NTG patch at usual dose of 0.4mg/hr, not 0.1mg/hr. * This patient was off iron supplementation until today and noted black stool. She also has a decreasing H/H. I would consider a GI evaluation. Ideally, Xarelto should be continued for another week if the patient can tolerate anticoagulation. Continue telemetry? No
--- NOTE | 2017-04-08 11:52 | PN- Pulmonary ---
Subjective HPI/Critical Care Issues: pt seen and examined feels better phlegm subsided on ceftaz afebrile no leukocytosis Objective Current Medications: Current Medications Sig/Lana Start time Last Medication Dose Route Stop Time Status Admin Acetaminophen 650 MG Q6P PRN 04/04 0030 AC 04/06 PO 1441 Albuterol Sulfate 3 ML EVERY 4 HRS/AWAKE 04/04 1200 AC 04/08 INH 1147 Alprazolam 0.5 MG BID 04/04 0003 AC 04/08 PO 04/11 0002 0935 Arformoterol Tartrate 15 MCG BID 04/04 1000 AC 04/08 INH 0858 Budesonide/ 2 PUF BID 04/04 1215 AC 04/08 Formoterol Fumarate INH 0935 Bupropion HCl 150 MG QAM 04/04 1000 AC 04/08 PO 0935 Ceftazidime 1,000 MG Q12H 04/04 1800 AC 04/08 IV 0559 Dicyclomine HCl 10 MG TID 04/04 1000 AC 04/07 PO 2114 Diltiazem HCl 180 MG BID 04/04 1000 AC 04/08 PO 0935 Docusate Sodium 200 MG QPM 04/04 2200 AC 04/07 PO 2113 Dofetilide 250 MCG BID 04/05 2200 AC 04/08 PO 0935 Ezetimibe 10 MG QPM 04/04 2200 AC 04/07 PO 2114 Ferrous Sulfate 325 MG TID 04/08 1012 AC PO Fish Oil 1,050 MG DAILY 04/04 1000 AC 04/08 PO 0934 Furosemide 40 MG 1800 04/05 1800 AC 04/07 PO 1827 Furosemide 40 MG 0600 04/05 0600 AC 04/08 PO 0559 Guaifenesin 600 MG DAILY 04/04 1000 AC 04/08 PO 0935 Ketorolac 15 MG Q6P PRN 04/04 0030 AC 04/07 Tromethamine IV 04/09 0029 0919 Levothyroxine Sodium 0.1 MG DAILY AC 04/04 0700 AC 04/08 PO 0559 Losartan Potassium 50 MG AT BEDTIME 04/04 2200 AC 04/07 PO 2113 Morphine Sulfate 2 MG Q4P PRN 04/04 0030 AC 04/08 IV 0555 Nitroglycerin 0.4 MG DAILY PRN 04/06 0046 AC 04/08 TOP 0935 Nystatin 5 ML 4 TIMES/DAY 04/04 1000 DC 04/08 PO 0934 Omeprazole 40 MG DAILY AC 04/04 0700 AC 04/08 PO 0559 Phenol 2 SPRAY Q2P PRN 04/05 1030 AC 04/06 EXT 0859 Polyethylene Glycol 17 GM DAILY PRN 04/04 2215 AC 04/07 PO 2117 Rivaroxaban 20 MG DAILY 04/04 1000 AC 04/08 PO 0935 Roflumilast 500 MCG DAILY 04/04 1000 AC 04/08 PO 0935 Sertraline HCl 200 MG DAILY 04/04 1000 AC 04/08 PO 0935 Tiotropium [place] 1 PUF DAILY 04/04 1000 AC 04/07 INH 0913 Vitamin E 400 IU DAILY 04/04 1000 AC 04/08 PO 0935 Vital Signs & I&O Last 24 Hrs of Vitals and I&O: Vital Signs Date Time Temp Pulse Resp B/P B/P Pulse O2 O2 Flow FiO2 Mean Ox Delivery Rate 04/08 0918 98 Nasal 2.0L Cannula 04/08 0800 Nasal 2.0L Cannula 04/08 0646 98.2 64 18 128/50 97 Nasal 2.0L Cannula 04/08 0000 Nasal 2.0L Cannula 04/07 2224 98.0 80 20 128/56 98 Nasal 2.0L Cannula 04/07 2113 128/56 04/07 1744 97 Room Air 04/07 1600 Nasal 2.0L Cannula 04/07 1526 98.2 64 20 134/64 95 Nasal 2.0L Cannula Intake & Output 04/08 1600 04/08 0800 04/08 0000 Intake Total 20 250 Output Total 500 Balance 20 -250 Intake, IV 20 10 Intake, Oral 240 Output, Urine 500 Exam Other Physical Findings: gen awake and alert heent ncat cvs s1, s2 lungs rare rhonchi abd soft bs+ ext without edema Results Last 24 Hrs of Lab Results: Laboratory Tests 04/08/17 0800: Anion Gap 9, Estimated GFR > 60, BUN/Creatinine Ratio 36.3 H, CBC w Diff NO MAN DIFF REQ, RBC 2.58 L, MCV 94.7, MCH 30.4, RDW 17.5 H, MPV 6.3 L, Gran % 67.6, Lymphocytes % 17.9 L, Monocytes % 12.6 H, Eosinophils % 1.7, Basophils % 0.2, Absolute Granulocytes 3.9, Absolute Lymphocytes 1.0 L, Absolute Monocytes 0.7 H, Absolute Eosinophils 0.1, Absolute Basophils 0, PUBS MCHC 32.1 L Impression/Plan Impression/Plan Impression/Plan: Impression 67 year old woman. Hx of COPD/chronic bronchitis. Recent stay at [facility]. Admitted for anemia. Pseudomonas tracehobronchitis Plan -trc/nebs -cont abx per ID -agree with completing course of tx DVT prophylaxis at all times
--- NOTE | 2017-04-08 13:50 | PN- Att Addend ---
Attending Addendum Attending Brief Note Patient seen and examined. Plan of care discussed with the medical team and the patient. Available lab work and radiology test reports were reviewed. Patient reports that her sputum has no clinical or. She reports cough and mild difficulty breathing but able to ambulate. Denies any recent fever or chills nausea vomiting or abdominal pain. Vital Signs Date Time Temp Pulse Resp B/P B/P Pulse O2 O2 Flow FiO2 Mean Ox Delivery Rate 04/08 918 98 Nasal 2.0L Cannula 04/08 0800 Nasal 2.0L Cannula 04/08 0646 98.2 64 18 128/50 97 Nasal 2.0L Cannula 04/08 0000 Nasal 2.0L Cannula 04/07 2224 98.0 80 20 128/56 98 Nasal 2.0L Cannula 04/07 2113 128/56 04/07 1744 97 Room Air 04/07 1600 Nasal 2.0L Cannula 04/07 1526 98.2 64 20 134/64 95 Nasal 2.0L Cannula Intake & Output 04/08 1600 04/08 0800 04/08 0000 Intake Total 20 250 Output Total 500 Balance 20 -250 Intake, IV 20 10 Intake, Oral 240 Output, Urine 500 Exam: General: Patient awake alert oriented without any distress CVS: S1 plus S2 without any murmur or gallops Chest: Few scattered crepitation without any wheeze. There is no respiratory distress. 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 oriented without any focal neuro deficit and follows command appropriately Extremities: No edema; no clubbing or cyanosis noted Laboratory Tests 04/08 08 Chemistry Sodium (137 - 145 mmol/L) 140 Potassium (3.5 - 5.1 mmol/L) 4.3 Chloride (98 - 107 mmol/L) 97 L Carbon Dioxide (22 - 30 mmol/L) 33 H Anion Gap (5 - 16) 9 BUN (7 - 17 mg/dL) 29 H Creatinine (0.5 - 1.0 mg/dL) 0.8 Estimated GFR (>60 ml/min) > 60 BUN/Creatinine Ratio (7 - 25 %) 36.3 H Hematology CBC w Diff NO MAN DIFF REQ WBC (4.8 - 10.8 /CUMM) 5.8 RBC (4.20 - 5.40 /CUMM) 2.58 L Hgb (12.0 - 16.0 G/DL) 7.8 L Hct (37 - 47 %) 24.4 L MCV (81.0 - 99.0 FL) 94.7 MCH (27.0 - 31.0 PG) 30.4 RDW (11.5 - 14.5 %) 17.5 H Plt Count (130 - 400 /CUMM) 788 H MPV (7.4 - 10.4 FL) 6.3 L Gran % (42.2 - 75.2 %) 67.6 Lymphocytes % (20.5 - 51.1 %) 17.9 L Monocytes % (1.7 - 9.3 %) 12.6 H Eosinophils % (0 - 5 %) 1.7 Basophils % (0.0 - 2.0 %) 0.2 Absolute Granulocytes (1.4 - 6.5 /CUMM) 3.9 Absolute Lymphocytes (1.2 - 3.4 /CUMM) 1.0 L Absolute Monocytes (0.10 - 0.60 /CUMM) 0.7 H Absolute Eosinophils (0.0 - 0.7 /CUMM) 0.1 Absolute Basophils (0.0 - 0.2 /CUMM) 0 PUBS MCHC (33.0 - 37.0 G/DL) 32.1 L Assessment * Acute and chronic anemia most likely due to small bowel AVMs; patient status post transfusion * Pseudomonas bronchitis * History of A. fib * History of hypertension * History of hyperlipidemia * History of depression and anxiety * History of PTSD * Thyroidism Plan * Continue IV ceftaz to complete 5 days of IV antibiotic course; will avoid Cipro due to its interaction with antiarrhythmics * Increase iron sulfate dose to 325 mg 3 times a day with food * Possible discharge for tomorrow
[2017-04-08 15:00] VITALS: BP 114/58
--- NOTE | 2017-04-08 16:07 | PN- Housestaff ---
Subjective Follow-up For: Anemia Pseudomonal Colonization Acute COPD exacerbation Subjective: Pt states she is doing well today. States her sputum has improved. Color is now clear from yellowish sputum when she was first admitted. States her breathing has improved as well. Pt denies fever, chills, SOB, chest pain, palpitations, abdominal pain, n/v/c/d. Review of Systems Constitutional: Denies: no symptoms. Cardiovascular: Denies: no symptoms. Respiratory: Reports: cough, sputum production. Gastrointestinal: Denies: no symptoms. Genitourinary: Denies: no symptoms. Musculoskeletal: Denies: no symptoms. Objective Last 24 Hrs of Vital Signs/I&O Vital Signs Date Time Temp Pulse Resp B/P B/P Pulse O2 O2 Flow FiO2 Mean Ox Delivery Rate 04/08 1742 96 Nasal 2.0L Cannula 04/08 1500 98.1 65 18 114/58 99 Nasal 2.0L Cannula 04/08 0918 98 Nasal 2.0L Cannula 04/08 0800 Nasal 2.0L Cannula 04/08 0646 98.2 64 18 128/50 97 Nasal 2.0L Cannula 04/08 0000 Nasal 2.0L Cannula 04/07 2224 98.0 80 20 128/56 98 Nasal 2.0L Cannula 04/07 2113 128/56 Intake & Output 04/08 1600 04/08 0800 04/08 0000 Intake Total 900 20 250 Output Total 500 Balance 900 20 -250 Intake, IV 20 10 Intake, Oral 900 240 Number 1 Bowel Movements Output, Urine 500 Physical Exam General Appearance: Alert, Oriented X3, Cooperative, No Acute Distress HEENT: Atraumatic, EOMI, Mucous Membr. moist/pink Cardiovascular: Regular Rate, Normal S1, Normal S2 Lungs: Clear to Auscultation Abdomen: Normal Bowel Sounds, Soft, No Tenderness Extremities: No Edema, Normal Pulses Assessment/Plan Assessment: Pt is a 67 y/o female with PMH of chronic anemia seen by Dr. 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 Stubbs for a transfusion now complaining of increased congestion and sputum production. 1. 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 Stubbs for transfusions as outpatient -Heme consulted, appreciate recommendations - continue to trend cbc and tranfused as needed - h/h today is 8, repeat CBC tomorrow AM 2. Pseudomonas aeruginosa colonization, possibly causing an acute COPD exacerbation with increased sputum production * The patient has chronic Pseudomonas colonization w/previous history of pneumonia and treatment for pseudomonas. * Pt has been afebrile with a normal WBC, no findings on CXR or physcial exam, and no change from her baseline oxygen requirements. * Will start Ceftaz per ID recommendations. Expect course to end on Saturday. Note we are limited in options for PO antibiotics with pseudomonal coverage which will not interfere with tikosyn and possibly convert pt from nsr to a.fib. * pt is improving on antibiotics - with decreased sputum production that is now clear from yellow 3. History of Afib, controlled, now in NSR - EKG revealed sinus rhythm - continue tikosyn (dofetilide) 250 mcg PO BID - continue xarelto 20 mg po daily - per cardiology: restart nitroglycerin patch at usual dose of 0.4mg/hr 4. History of HTN -Losartan 50 mg -Furosemide 40 mg twice a day -Diltiazem 180mg BID po 5. History of HLD -Vitamin E 400 international units daily -Fish oil 1060mg daily po -Pravastatin 40 mg 6. History of Constipation -Colace 200 mg daily 7. History of COPD (chronic obstructive pulmonary disease) - She is on 2 L of oxygen at home. - Spiriva 1 puff daily - Guaifenesin 600 mg daily - Roflumilast 500mcg daily - TRC consulted, receiving duoneb treatments 8. Psychiatric disorder - history of depression/anxiety/ptsd, pt states she has panic attacks - Sertraline 200 mg - Bupropion 150 mg 9. Thrush - history of thrush. We will continue her home nystatin swish and swallow. - Nystatin 5ml 4 times po - thrush 10. History of Hypothyroid - Continue Levothyroxine 0.1 mg 11. History of GERD (gastroesophageal reflux disease) - Continue Omeprazole 40 mg 12. History of IBS (irritable bowel syndrome) - Continue Dicyclomine 10 mg TID for IBS DVT PPX: rivoraxaban 20 mg po daily (on at home) Diet: Regular Code: Full code Dispo: pending completion of IV antibiotics on 04/09/2017 Problem List: 1. HLD (hyperlipidemia) 2. GERD (gastroesophageal reflux disease) 3. Thrush 4. Hypothyroid 5. Psychiatric disorder 6. COPD (chronic obstructive pulmonary disease) 7. Pseudomonas aeruginosa colonization 8. COPD exacerbation 9. Atrial fibrillation 10. HTN (hypertension) 11. Constipation Pain Ratin Pain Location: none Pain Goal: Remain pain free Pain Plan: none Tomorrow's Labs & Rationales: CBC
[2017-04-08 22:25] VITALS: BP 108/58
[2017-04-09 06:21] VITALS: BP 110/58
--- NOTE | 2017-04-09 07:24 | PN- Housestaff ---
Subjective Follow-up For: Chronic Anemia 2/2 AVM Acute COPD exacerbation Pseudomonal colonization Subjective: Pt states she feels that her sputum is still not completely clear and is a light yellow color. Pt states she is otherwise feeling well. But states she thinks that she requires more antibiotic therapy. It was explained to her by Dr. Whitney and Dr. Stokes that prolonged antibiotic therapy will not benefit her at this time and it could potentially cause resistance in the future as well as increase her risk of C.dif and other problems. Pt states she understands this. Pt denies SOB, chest pain, fever/chills, n/v/c/d or abdominal pain. Review of Systems Constitutional: Denies: see HPI. Cardiovascular: Denies: see HPI. Respiratory: Reports: see HPI, cough. Gastrointestinal: Denies: see HPI. Genitourinary: Denies: no symptoms, see HPI. Objective Last 24 Hrs of Vital Signs/I&O Vital Signs Date Time Temp Pulse Resp B/P B/P Pulse O2 O2 Flow FiO2 Mean Ox Delivery Rate 04/09 1419 97.4 76 20 126/60 99 Nasal 2.0L Cannula 04/09 0807 100 Nasal 2.0L Cannula 04/09 0800 Nasal 2.0L Cannula 04/09 0621 97.8 63 20 110/58 99 Nasal 2.0L Cannula 04/09 0000 100 Nasal 2.0L Cannula 04/08 2254 120/58 04/08 2225 98.2 77 18 108/58 100 04/08 1742 96 Nasal 2.0L Cannula Intake & Output 04/09 1600 04/09 0800 04/09 0000 Intake Total 520 500 Output Total Balance 520 500 Intake, IV 40 20 Intake, Oral 480 480 Patient 118 lb Weight Physical Exam General Appearance: Alert, Cooperative, No Acute Distress Cardiovascular: Regular Rate, Normal S1, Normal S2 Lungs: course breath sounds heard in upper lobes, remainder is clear to ausculation Abdomen: Normal Bowel Sounds, Soft, No Tenderness Extremities: No Edema, Normal Pulses Assessment/Plan Assessment: Pt is a 67 y/o female with PMH of chronic anemia seen by Dr. 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 Stubbs for a transfusion now complaining of increased congestion and sputum production. 1. 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 Stubbs for transfusions as outpatient -Heme consulted, appreciate recommendations - continue to trend cbc and tranfused as needed - h/h today is 6.6 today from 7.8, pt transfused, repeat CBC tomorrow AM - GI consulted, appreciate recommendations: for anemia, GI bleed w/ history of AVMs requiring more transfusions than her baseline (normally 1 transfusion every month or two) 2. Pseudomonas aeruginosa colonization, possibly causing an acute COPD exacerbation with increased sputum production * The patient has chronic Pseudomonas colonization w/previous history of pneumonia and treatment for pseudomonas. * Pt has been afebrile with a normal WBC, no findings on CXR or physcial exam, and no change from her baseline oxygen requirements. * Will start Ceftaz per ID recommendations. Expect course to end on Saturday. Note we are limited in options for PO antibiotics with pseudomonal coverage which will not interfere with tikosyn and possibly convert pt from nsr to a.fib. * pt has completed 5 day course of antibiotics today with normal WBC and no fever. Sputum still is a light yellow but it appears to have improved from admission. No other signs to further prolong antibiotic therapy. 3. History of Afib, controlled, now in NSR - EKG revealed sinus rhythm - continue tikosyn (dofetilide) 250 mcg PO BID - per cardiology: restart nitroglycerin patch at usual dose of 0.4mg/hr - stop xarelto 20 mg po daily today due to anemia/GI bleed 4. History of HTN -Losartan 50 mg -Furosemide 40 mg twice a day -Diltiazem 180mg BID po 5. History of HLD -Vitamin E 400 international units daily -Fish oil 1060mg daily po -Pravastatin 40 mg 6. History of Constipation -Colace 200 mg daily 7. History of COPD (chronic obstructive pulmonary disease) - She is on 2 L of oxygen at home. - Spiriva 1 puff daily - Guaifenesin 600 mg daily - Roflumilast 500mcg daily - TRC consulted, receiving duoneb treatments 8. Psychiatric disorder - history of depression/anxiety/ptsd, pt states she has panic attacks - Sertraline 200 mg - Bupropion 150 mg 9. Thrush - history of thrush. We will continue her home nystatin swish and swallow. - Nystatin 5ml 4 times po - thrush 10. History of Hypothyroid - Continue Levothyroxine 0.1 mg 11. History of GERD (gastroesophageal reflux disease) - Continue Omeprazole 40 mg 12. History of IBS (irritable bowel syndrome) - Continue Dicyclomine 10 mg TID for IBS DVT PPX: rivoraxaban 20 mg po daily stopped today per cardiology, placed on ALPs Diet: Regular Code: Full code Dispo: anticipated tomorrow pending GI consult today Problem List: 1. HLD (hyperlipidemia) 2. IBS (irritable bowel syndrome) 3. GERD (gastroesophageal reflux disease) 4. Hypothyroid 5. Thrush 6. Psychiatric disorder 7. COPD (chronic obstructive pulmonary disease) 8. Constipation 9. HTN (hypertension) 10. Afib 11. Pseudomonas aeruginosa colonization 12. Anemia 13. COPD (chronic obstructive pulmonary disease) 14. COPD exacerbation Pain Ratin Pain Location: n/a Pain Goal: Remain pain free Pain Plan: n/a Tomorrow's Labs & Rationales: cbc - for anemia/posttransfusion
--- NOTE | 2017-04-09 08:24 | PN- Att Addend ---
Attending Addendum Attending Brief Note Patient seen and examined. Plan of care discussed with the medical team and the patient. Available lab work and radiology test reports were reviewed. Patient reports that her sputum is light yellow. She reports cough and mild difficulty breathing as usuall at her baseline but able to ambulate. Denies any recent fever or chills nausea vomiting or abdominal pain. Vital Signs Date Time Temp Pulse Resp B/P B/P Pulse O2 O2 Flow FiO2 Mean Ox Delivery Rate 04/09 0807 100 Nasal 2.0L Cannula 04/09 0621 97.8 63 20 110/58 99 Nasal 2.0L Cannula 04/09 0000 100 Nasal 2.0L Cannula 04/08 2254 120/58 04/08 2225 98.2 77 18 108/58 100 04/08 1742 96 Nasal 2.0L Cannula 04/08 1500 98.1 65 18 114/58 99 Nasal 2.0L Cannula 04/08 0918 98 Nasal 2.0L Cannula Intake & Output 04/09 1600 04/09 0800 04/09 0000 Intake Total 520 500 Output Total Balance 520 500 Intake, IV 40 20 Intake, Oral 480 480 Exam: General: Patient awake alert oriented without any distress CVS: S1 plus S2 without any murmur or gallops Chest: Few scattered crepitation with expiratory prolongation. There is no respiratory distress. 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 without any focal neuro deficit and follows command appropriately Extremities: No edema; no clubbing or cyanosis noted Laboratory Tests 04/09 0650 Hematology CBC w Diff NO MAN DIFF REQ WBC (4.8 - 10.8 /CUMM) 5.1 RBC (4.20 - 5.40 /CUMM) 2.17 L Hgb (12.0 - 16.0 G/DL) 6.6 *L Hct (37 - 47 %) 20.4 L MCV (81.0 - 99.0 FL) 94.0 MCH (27.0 - 31.0 PG) 30.5 RDW (11.5 - 14.5 %) 17.3 H Plt Count (130 - 400 /CUMM) 681 H MPV (7.4 - 10.4 FL) 6.3 L Gran % (42.2 - 75.2 %) 60.7 Lymphocytes % (20.5 - 51.1 %) 20.9 Monocytes % (1.7 - 9.3 %) 14.7 H Eosinophils % (0 - 5 %) 2.2 Basophils % (0.0 - 2.0 %) 1.5 Absolute Granulocytes (1.4 - 6.5 /CUMM) 3.1 Absolute Lymphocytes (1.2 - 3.4 /CUMM) 1.1 L Absolute Monocytes (0.10 - 0.60 /CUMM) 0.7 H Absolute Eosinophils (0.0 - 0.7 /CUMM) 0.1 Absolute Basophils (0.0 - 0.2 /CUMM) 0.1 PUBS MCHC (33.0 - 37.0 G/DL) 32.4 L Assessment * Acute and chronic anemia most likely due to small bowel AVMs; patient status post transfusion; H/H has dropped again. * Pseudomonas bronchitis * History of A. fib * History of hypertension * History of hyperlipidemia * History of depression and anxiety * History of PTSD * Thyroidism Plan * one unit of PRBC today, check cbc after; pt can go home after the transfusion * IV ceftaz to complete 5 days of IV antibiotic course; will finish this mroning. will avoid Cipro due to its interaction with antiarrhythmics * Continue iron sulfate dose to 325 mg 3 times a day with food
[2017-04-09 08:34] LABS: ABSOLUTE BASOPHIL COUNT 0.1 /CUMM (0.0-0.2); ABSOLUTE EOSINOPHIL COUNT 0.1 /CUMM (0.0-0.7); EOSINOPHIL % 2.2 % (0-5); HEMATOCRIT 20.4 % (37-47); MEAN CORPUSCULAR HGB 30.5 PG (27.0-31.0); PLATELET COUNT 681 /CUMM (130-400); WHITE BLOOD CELL COUNT 5.1 /CUMM (4.8-10.8)
--- NOTE | 2017-04-09 09:27 | PN- Pulmonary ---
Subjective HPI/Critical Care Issues: pt seen and examined dyspnea remains on exertion no fevers, no chills able to ambulate Objective Current Medications: Current Medications Sig/Lana Start time Last Medication Dose Route Stop Time Status Admin Acetaminophen 650 MG Q6P PRN 04/04 0030 AC 04/06 PO 1441 Albuterol Sulfate 3 ML EVERY 4 HRS/AWAKE 04/04 1200 AC 04/09 INH 0806 Alprazolam 0.5 MG BID 04/04 0003 AC 04/08 PO 04/11 0002 2253 Arformoterol Tartrate 15 MCG BID 04/04 1000 AC 04/09 INH 0815 Budesonide/ 2 PUF BID 04/04 1215 AC 04/08 Formoterol Fumarate INH 2257 Bupropion HCl 150 MG QAM 04/04 1000 AC 04/08 PO 0935 Ceftazidime 1,000 MG Q12H 04/04 1800 AC 04/09 IV 0514 Dicyclomine HCl 10 MG TID 04/04 1000 AC 04/08 PO 2256 Diltiazem HCl 180 MG BID 04/04 1000 AC 04/08 PO 2255 Docusate Sodium 200 MG QPM 04/04 2200 AC 04/08 PO 2254 Dofetilide 250 MCG BID 04/05 2200 AC 04/08 PO 2253 Ezetimibe 10 MG QPM 04/04 2200 AC 04/08 PO 2254 Ferrous Sulfate 325 MG TID 04/08 1012 AC 04/08 PO 2254 Fish Oil 1,050 MG DAILY 04/04 1000 AC 04/08 PO 0934 Furosemide 40 MG 1800 04/05 1800 AC 04/08 PO 1845 Furosemide 40 MG 0600 04/05 0600 AC 04/09 PO 0515 Guaifenesin 600 MG DAILY 04/04 1000 AC 04/08 PO 0935 Ketorolac 15 MG Q6P PRN 04/04 0030 DC 04/07 Tromethamine IV 04/09 0029 0919 Levothyroxine Sodium 0.1 MG DAILY AC 04/04 0700 AC 04/09 PO 0514 Losartan Potassium 50 MG AT BEDTIME 04/04 2200 AC 04/08 PO 2254 Morphine Sulfate 2 MG Q4P PRN 04/04 0030 AC 04/09 IV 0418 Nitroglycerin 0.4 MG DAILY PRN 04/06 0046 AC 04/08 TOP 0935 Nystatin 5 ML 4 TIMES/DAY 04/04 1000 DC 04/08 PO 0934 Omeprazole 40 MG DAILY AC 04/04 0700 AC 04/09 PO 0514 Patient Medication 1 ED .STK-MED ONE 04/08 1413 TN Teaching ED 04/08 1414 Phenol 2 SPRAY Q2P PRN 04/05 1030 AC 04/06 EXT 0859 Polyethylene Glycol 17 GM DAILY PRN 04/04 2215 AC 04/07 PO 2117 Rivaroxaban 20 MG DAILY 04/04 1000 AC 04/08 PO 0935 Roflumilast 500 MCG DAILY 04/04 1000 AC 04/08 PO 0935 Sertraline HCl 200 MG DAILY 04/04 1000 AC 04/08 PO 0935 Tiotropium [place] 1 PUF DAILY 04/04 1000 AC 04/08 INH 1159 Vitamin E 400 IU DAILY 04/04 1000 AC 04/08 PO 0935 Vital Signs & I&O Last 24 Hrs of Vitals and I&O: Vital Signs Date Time Temp Pulse Resp B/P B/P Pulse O2 O2 Flow FiO2 Mean Ox Delivery Rate 04/09 0807 100 Nasal 2.0L Cannula 04/09 0621 97.8 63 20 110/58 99 Nasal 2.0L Cannula 04/09 0000 100 Nasal 2.0L Cannula 04/08 2254 120/58 04/08 2225 98.2 77 18 108/58 100 04/08 1742 96 Nasal 2.0L Cannula 04/08 1500 98.1 65 18 114/58 99 Nasal 2.0L Cannula Intake & Output 04/09 1600 04/09 0800 04/09 0000 Intake Total 520 500 Output Total Balance 520 500 Intake, IV 40 20 Intake, Oral 480 480 Exam Other Physical Findings: gen awake and alert heent ncat cvs s1, s2 lungs rare rhonchi abd soft bs+ ext without edema Results Last 24 Hrs of Lab Results: Laboratory Tests 04/09/17 0650: CBC w Diff Pending, WBC Pending, RBC Pending, Hgb Pending, Hct Pending, MCV Pending, MCH Pending, RDW Pending, Plt Count Pending, MPV Pending, PUBS MCHC Pending Impression/Plan Impression/Plan Impression/Plan: Impression 67 year old woman. Hx of COPD/chronic bronchitis. Recent stay at [facility]. Admitted for anemia. Pseudomonas tracehobronchitis Plan -trc/nebs -cont abx per ID -agree with completing course of tx then d/c DVT prophylaxis at all times
[2017-04-09 09:34] LABS: ABSOLUTE GRANULOCYTE CT 3.1 /CUMM (1.4-6.5); ABSOLUTE LYMPH COUNT 1.1 /CUMM (1.2-3.4); ABSOLUTE MONOCYTE COUNT 0.7 /CUMM (0.10-0.60); BASOPHIL % 1.5 % (0.0-2.0); GRANULOCYTE % 60.7 % (42.2-75.2); MEAN CORPUSCULAR HGB CONC 32.4 G/DL (33.0-37.0); MEAN PLATELET VOLUME 6.3 FL (7.4-10.4); RBC DISTRIBUTION WIDTH 17.3 % (11.5-14.5); RED BLOOD CELL CT 2.17 /CUMM (4.20-5.40)
[2017-04-09 14:19] VITALS: BP 126/60
--- NOTE | 2017-04-09 14:34 | PN- Cardiology ---
Subjective Subjective: * Sputum is becoming more yellow on antibiotic therapy. Overall breathing is improved. * A dramatic drop in H/H is noted. Objective Vital Signs and I&Os Vital Signs Date Time Temp Pulse Resp B/P B/P Pulse O2 O2 Flow FiO2 Mean Ox Delivery Rate 04/09 1419 97.4 76 20 126/60 99 Nasal 2.0L Cannula 04/09 0807 100 Nasal 2.0L Cannula 04/09 0800 Nasal 2.0L Cannula 04/09 0621 97.8 63 20 110/58 99 Nasal 2.0L Cannula 04/09 0000 100 Nasal 2.0L Cannula 04/08 2254 120/58 04/08 2225 98.2 77 18 108/58 100 04/08 1742 96 Nasal 2.0L Cannula 04/08 1500 98.1 65 18 114/58 99 Nasal 2.0L Cannula Intake & Output 04/09 1600 04/09 0800 04/09 0000 04/08 1600 04/08 0800 04/08 0000 Intake Total 520 500 900 20 250 Output Total 500 Balance 520 500 900 20 -250 Intake, IV 40 20 20 10 Intake, Oral 480 480 900 240 Number 1 Bowel Movements Output, Urine 500 Physical Exam: General: WD/ WN female in NAD; alert and oriented x 3 Heart: RRR w/o murmur Lungs: no crackles, upper airway congestion noted Extremities: no edema Assessment/Plan Assessment/Plan * Patient does appear improved with antibiotics but is not yet to her baseline. It is difficult to know if her pseudomonas is a benign colonizer or a more active infection but she did appear to improve with antibiotics. Cipro may not be used in combination with her dofetilide due to the potential for pro- arrhythmia. I would consider continuing antibiotic therapy until patient's sputum clears since she cannot receive oral antibiotics. A PICC line with IV antibiotics is also a consideration. * Continue NTG patch at usual dose of 0.4mg/hr. * This patient was off iron supplementation until today and noted black stool. She also has a decreasing H/H with a dramatic drop on todays labs. I would strongly consider a GI evaluation. Ideally, Xarelto should be continued for another week but due to a strong suspicion of active bleeding will need to be stopped. Continue telemetry? No
[2017-04-09 23:00] VITALS: BP 118/64
--- NOTE | 2017-04-10 07:25 | PN- Housestaff ---
Subjective Follow-up For: Chronic Anemia 2/2 AVM Acute COPD exacerbation Pseudomonal colonization Subjective: Pt states her breathing is much better today, but continues to have yellow sputum. Pt otherwise has no complaints. Pt denies SOB, cough, fever/chills, chest pain/palpitaitons, n/v/c/d, or lightheadedness. Review of Systems Constitutional: Denies: no symptoms. Cardiovascular: Denies: no symptoms. Respiratory: Reports: see HPI. Gastrointestinal: Denies: no symptoms. Genitourinary: Denies: no symptoms. Objective Last 24 Hrs of Vital Signs/I&O Vital Signs Date Time Temp Pulse Resp B/P B/P Pulse O2 O2 Flow FiO2 Mean Ox Delivery Rate 04/10 1610 96 Nasal 2.0L Cannula 04/10 1425 97.7 73 20 116/60 97 Nasal 2.0L Cannula 04/10 1014 99 Nasal 2.0L Cannula 04/10 0800 Nasal 2.0L Cannula 04/10 0745 98.1 67 20 132/58 99 Nasal 2.0L Cannula 04/10 0000 Nasal 2.0L Cannula 04/09 2300 65 118/64 Intake & Output 04/10 1600 04/10 0800 04/10 0000 Intake Total 1000 480 480 Output Total 800 Balance 200 480 480 Intake, Oral 1000 480 480 Number 1 Bowel Movements Output, Urine 800 Physical Exam General Appearance: Alert, Oriented X3, Cooperative, No Acute Distress HEENT: Atraumatic, EOMI, Mucous Membr. moist/pink Cardiovascular: Regular Rate, Normal S1, Normal S2 Lungs: Clear to Auscultation, saturating in the high 90s on 2L NC (baseline) Abdomen: Normal Bowel Sounds, Soft, No Tenderness Extremities: No Edema, Normal Pulses Assessment/Plan Assessment: Pt is a 67 y/o female with PMH of chronic anemia seen by Dr. 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 Stubbs for a transfusion now complaining of increased congestion and sputum production. 1. 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 Stubbs for transfusions as outpatient -Heme consulted, appreciate recommendations - continue to trend cbc and tranfused as needed - h/h today is 8.2/24.9 today from 6.6/20.4 after pt was transfused yesterday afternoon, pt will be sent home with a script for repeat CBC and follow up with her primary care, contact center agent and hay buckler. - GI consulted for anemia and determined pt does not require inpatient workup for anemia as she has had extensive workup in the past few months. As per Dr. 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 Dr. Pandya recommended pt stop xarelto due to her propensity to bleed and repeat transfusion requirements. This was relayed to the patient. She understands that she is at risk for bleeding from her GI tract but believes that it is worth the risk to avoid a potential stroke from a.fib. Pt states she wants to continue to be on xarelto and is willing to receive transfusions and take iron supplement lifelong. 2. Pseudomonas aeruginosa colonization, possibly causing an acute COPD exacerbation with increased sputum production * The patient has chronic Pseudomonas colonization w/previous history of pneumonia and treatment for pseudomonas. * Pt has been afebrile with a normal WBC, no findings on CXR or physcial exam, and no change from her baseline oxygen requirements. * Will start Ceftaz per ID recommendations. Expect course to end on Saturday. Note we are limited in options for PO antibiotics with pseudomonal coverage which will not interfere with tikosyn and possibly convert pt from nsr to a.fib. * pt has completed 5 day course of antibiotics and remains afebrile with a normal WBC. Sputum still is a light yellow but it appears to have improved from admission. No other signs to further prolong antibiotic therapy. 3. History of Afib, controlled, now in NSR - EKG revealed sinus rhythm - continue tikosyn (dofetilide) 250 mcg PO BID - per cardiology: restart nitroglycerin patch at usual dose of 0.4mg/hr - stop xarelto 20 mg po daily today due to anemia/GI bleed 4. History of HTN -Losartan 50 mg -Furosemide 40 mg twice a day -Diltiazem 180mg BID po 5. History of HLD -Vitamin E 400 international units daily -Fish oil 1060mg daily po -Pravastatin 40 mg 6. History of Constipation -Colace 200 mg daily 7. History of COPD (chronic obstructive pulmonary disease) - She is on 2 L of oxygen at home. - Spiriva 1 puff daily - Guaifenesin 600 mg daily - Roflumilast 500mcg daily - TRC consulted, receiving duoneb treatments 8. Psychiatric disorder - history of depression/anxiety/ptsd, pt states she has panic attacks - Sertraline 200 mg - Bupropion 150 mg 9. Thrush - history of thrush. We will continue her home nystatin swish and swallow. - Nystatin 5ml 4 times po - thrush 10. History of Hypothyroid - Continue Levothyroxine 0.1 mg 11. History of GERD (gastroesophageal reflux disease) - Continue Omeprazole 40 mg 12. History of IBS (irritable bowel syndrome) - Continue Dicyclomine 10 mg TID for IBS DVT PPX: rivoraxaban 20 mg po daily stopped today per cardiology, placed on ALPs Diet: Regular Code: Full code Dispo: discharge home today Problem List: 1. COPD exacerbation 2. Hypertension 3. Hypothyroidism 4. HLD (hyperlipidemia) 5. IBS (irritable bowel syndrome) 6. GERD (gastroesophageal reflux disease) 7. Thrush 8. Psychiatric disorder 9. COPD (chronic obstructive pulmonary disease) 10. Afib 11. Pseudomonas aeruginosa colonization 12. Anemia Pain Ratin Pain Location: n/a Pain Goal: Remain pain free Pain Plan: n/a Tomorrow's Labs & Rationales: none
[2017-04-10 07:45] VITALS: BP 132/58
--- NOTE | 2017-04-10 08:17 | PN- Att Addend ---
Attending Addendum Attending Brief Note Patient seen and examined. Plan of care discussed with the medical team and the patient. Available lab work and radiology test reports were reviewed. Patient reports that her sputum is light yellow. She reports cough and mild difficulty breathing as usuall at her baseline but able to ambulate. Denies any recent fever or chills nausea vomiting or abdominal pain. Patient is status post 1 unit of blood transfusion yesterday. Pt is off abx today. Vital Signs Date Time Temp Pulse Resp B/P B/P Pulse O2 O2 Flow FiO2 Mean Ox Delivery Rate 04/10 0745 98.1 67 20 132/58 99 Nasal 2.0L Cannula 04/10 0000 Nasal 2.0L Cannula 04/09 2300 65 118/64 04/09 2110 64 118/64 04/09 2110 97 Nasal 2.0L Cannula 04/09 1600 Nasal 2.0L Cannula 04/09 1419 97.4 76 20 126/60 99 Nasal 2.0L Cannula Intake & Output 04/10 1600 04/10 0800 04/10 0000 Intake Total 480 480 Output Total Balance 480 480 Intake, Oral 480 480 Exam: General: Patient awake alert oriented without any distress CVS: S1 plus S2 without any murmur or gallops Chest: Few scattered crepitation with expiratory prolongation. There is no respiratory distress. Abdomen: Soft nontender, bowel sound present, no guarding or rebound HOSE SUSPENDER CUTTER: Awake alert oriented without any focal neuro deficit and follows command appropriately Extremities: No edema; no clubbing or cyanosis noted Laboratory Tests 04/10 0814 Hematology CBC w Diff NO MAN DIFF REQ WBC (4.8 - 10.8 /CUMM) 8.4 RBC (4.20 - 5.40 /CUMM) 2.69 L Hgb (12.0 - 16.0 G/DL) 8.2 L Hct (37 - 47 %) 24.9 L MCV (81.0 - 99.0 FL) 92.4 MCH (27.0 - 31.0 PG) 30.4 RDW (11.5 - 14.5 %) 18.3 H Plt Count (130 - 400 /CUMM) 710 H MPV (7.4 - 10.4 FL) 6.3 L Gran % (42.2 - 75.2 %) 67.2 Lymphocytes % (20.5 - 51.1 %) 17.5 L Monocytes % (1.7 - 9.3 %) 12.7 H Eosinophils % (0 - 5 %) 1.6 Basophils % (0.0 - 2.0 %) 1.0 Absolute Granulocytes (1.4 - 6.5 /CUMM) 5.7 Absolute Lymphocytes (1.2 - 3.4 /CUMM) 1.5 Absolute Monocytes (0.10 - 0.60 /CUMM) 1.1 H Absolute Eosinophils (0.0 - 0.7 /CUMM) 0.1 Absolute Basophils (0.0 - 0.2 /CUMM) 0.1 PUBS MCHC (33.0 - 37.0 G/DL) 32.9 L Assessment * Acute and chronic anemia most likely due to small bowel AVMs; patient status post transfusion yesterday; H/H had dropped again. Case was discussed with both Dr. Naranjo and Dr. Pandya yesterday. No GI intervention plan at this point. Cardiology is considering stopping Xeralto in near future. * Pseudomonas bronchitis * History of A. fib * History of hypertension * History of hyperlipidemia * History of depression and anxiety * History of PTSD * Thyroidism Plan * Status post one unit of PRBC yesterday, * pt can go home today * Continue iron sulfate dose to 325 mg 3 times a day with food * Patient follow with Dr. Pandya ; and Dr. Naranjo * CBC check in 2 days note the patient is dependent on chronic transfusions and ultimately she is to come off Xeralto Total time spent in preparation for discharge plan, patient education, and CMR preparation was 35 minutes.
[2017-04-10 09:07] LABS: ABSOLUTE BASOPHIL COUNT 0.1 /CUMM (0.0-0.2); ABSOLUTE EOSINOPHIL COUNT 0.1 /CUMM (0.0-0.7); ABSOLUTE GRANULOCYTE CT 5.7 /CUMM (1.4-6.5); ABSOLUTE LYMPH COUNT 1.5 /CUMM (1.2-3.4); ABSOLUTE MONOCYTE COUNT 1.1 /CUMM (0.10-0.60); EOSINOPHIL % 1.6 % (0-5); HEMATOCRIT 24.9 % (37-47); MEAN CORPUSCULAR HGB 30.4 PG (27.0-31.0); MEAN CORPUSCULAR HGB CONC 32.9 G/DL (33.0-37.0); MEAN CORPUSCULAR VOLUME 92.4 FL (81.0-99.0); MEAN PLATELET VOLUME 6.3 FL (7.4-10.4); RBC DISTRIBUTION WIDTH 18.3 % (11.5-14.5); RED BLOOD CELL CT 2.69 /CUMM (4.20-5.40)
[2017-04-10 10:11] LABS: GRANULOCYTE % 67.2 % (42.2-75.2); PLATELET COUNT 710 /CUMM (130-400); WHITE BLOOD CELL COUNT 8.4 /CUMM (4.8-10.8)
--- NOTE | 2017-04-10 10:32 | PN- Cardiology ---
Subjective Subjective: * No complaints. Objective Vital Signs and I&Os Vital Signs Date Time Temp Pulse Resp B/P B/P Pulse O2 O2 Flow FiO2 Mean Ox Delivery Rate 04/10 1014 99 Nasal 2.0L Cannula 04/10 0745 98.1 67 20 132/58 99 Nasal 2.0L Cannula 04/10 0000 Nasal 2.0L Cannula 04/09 2300 65 118/64 04/09 2110 64 118/64 04/09 2110 97 Nasal 2.0L Cannula 04/09 1600 Nasal 2.0L Cannula 04/09 1419 97.4 76 20 126/60 99 Nasal 2.0L Cannula Intake & Output 04/10 1600 04/10 0800 04/10 0000 04/09 1600 04/09 0800 04/09 0000 Intake Total 409 068 6478 520 500 Output Total Balance 298 072 9135 520 500 Intake, IV 0 40 20 Intake, Oral 961 493 8056 480 480 Number 0 Bowel Movements Patient 118 lb Weight Physical Exam: Well-developed, well-nourished female in no acute distress. Vital signs: See above. Lungs: Clear to auscultation bilaterally. Heart: S1, S2 with no murmur, gallop, or rub appreciated. Extremities: No edema. Current Medications: Current Medications Sig/Lana Start time Last Medication Dose Route Stop Time Status Admin Acetaminophen 650 MG Q6P PRN 04/04 0030 AC 04/06 PO 1441 Albuterol Sulfate 3 ML EVERY 4 HRS/AWAKE 04/04 1200 AC 04/10 INH 1008 Alprazolam 0.5 MG BID 04/04 0003 AC 04/10 PO 04/11 0002 0919 Arformoterol Tartrate 15 MCG BID 04/04 1000 AC 04/10 INH 1012 Budesonide/ 2 PUF BID 04/04 1215 AC 04/10 Formoterol Fumarate INH 0918 Bupropion HCl 150 MG QAM 04/04 1000 AC 04/10 PO 0919 Ceftazidime 1,000 MG Q12H 04/04 1800 DC 04/09 IV 0514 Dicyclomine HCl 10 MG TID 04/04 1000 AC 04/10 PO 0918 Diltiazem HCl 180 MG BID 04/04 1000 AC 04/10 PO 0919 Docusate Sodium 200 MG QPM 04/04 2200 AC 04/09 PO 211 Dofetilide 250 MCG BID 04/05 2200 AC 04/10 PO 0919 Ezetimibe 10 MG QPM 04/04 2200 AC 04/09 PO 2110 Ferrous Sulfate 325 MG TID 04/08 1012 AC 04/10 PO 0919 Fish Oil 1,050 MG DAILY 04/04 1000 AC 04/10 PO 0919 Furosemide 40 MG 1800 04/05 1800 AC 04/09 PO 1639 Furosemide 40 MG 0600 04/05 0600 AC 04/10 PO 0537 Guaifenesin 600 MG DAILY 04/04 1000 AC 04/10 PO 0919 Levothyroxine Sodium 0.1 MG DAILY AC 04/04 0700 AC 04/10 PO 0537 Losartan Potassium 50 MG AT BEDTIME 04/04 2200 AC 04/09 PO 2110 Morphine Sulfate 2 MG Q4P PRN 04/04 0030 AC 04/10 IV 0930 Nitroglycerin 0.4 MG DAILY PRN 04/06 0046 AC 04/10 TOP 0918 Omeprazole 40 MG DAILY AC 04/04 0700 AC 04/10 PO 0537 Phenol 2 SPRAY Q2P PRN 04/05 1030 AC 04/06 EXT 0859 Polyethylene Glycol 17 GM DAILY PRN 04/04 2215 AC 04/09 PO 1001 Rivaroxaban 20 MG DAILY 04/04 1000 DC 04/09 PO 1000 Roflumilast 500 MCG DAILY 04/04 1000 AC 04/10 PO 0919 Sertraline HCl 200 MG DAILY 04/04 1000 AC 04/10 PO 0919 Tiotropium [place] 1 PUF DAILY 04/04 1000 AC 04/10 INH 0919 Vitamin E 400 IU DAILY 04/04 1000 AC 04/10 PO 0919 Results Last 48 Hrs of Labs/Mics: Laboratory Tests 04/10/17 0814: CBC w Diff NO MAN DIFF REQ, RBC 2.69 L, MCV 92.4, MCH 30.4, RDW 18.3 H, MPV 6.3 L, Gran % 67.2, Lymphocytes % 17.5 L, Monocytes % 12.7 H, Eosinophils % 1.6, Basophils % 1.0, Absolute Granulocytes 5.7, Absolute Lymphocytes 1.5, Absolute Monocytes 1.1 H, Absolute Eosinophils 0.1, Absolute Basophils 0.1, PUBS MCHC 32.9 L 04/09/17 0650: CBC w Diff NO MAN DIFF REQ, RBC 2.17 L, MCV 94.0, MCH 30.5, RDW 17.3 H, MPV 6.3 L, Gran % 60.7, Lymphocytes % 20.9, Monocytes % 14.7 H, Eosinophils % 2.2, Basophils % 1.5, Absolute Granulocytes 3.1, Absolute Lymphocytes 1.1 L, Absolute Monocytes 0.7 H, Absolute Eosinophils 0.1, Absolute Basophils 0.1, PUBS MCHC 32.4 L Assessment/Plan Assessment/Plan 67 [id number]/ [id number] HTN, HLD, PAF on anticoagulation, chronic anemia secondary to chronic GI bleeding from small bowel AVMs exacerbated by anticoagulation and f/u 'd closely by heme/onc (Antwon Woods M.D.) w/ periodic transfusions, long- standing tobacco use ([id number] dc'd 3 years), COPD on 2 L nc at home, and 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 Woods for a transfusion w/ a c/o increased congestion and sputum production. She has remained hemodynamically stable from a cardiac standpoint, however, concern remains about the drop in her H/H and as a result, Mrs. Gallegos's anticoagulation has been placed on hold. Would check with heme/onc to see if they are comfortable w/ restarting anticoagulation Continue telemetry? Not applicable
[2017-04-10 14:25] VITALS: BP 116/60
--- NOTE | 2017-04-10 21:43 | Discharge Summary ---
Visit Information Visit Dates Admission Date: 04/04/17 Hospital Course Course Attending Physician: SUSAN ETIENNE,ANTON[place] Primary Care Physician: DEDE MARION MD Consulting Request: 1 Consulting Specialty: Cardiology Consulting Request: 2 Consulting Specialty: Gastroenterology Consulting Request: 3 Consulting Specialty: Infectious Disease Consulting Request: 4 Consulting Specialty: Pulmonary Disease Consulting Request: 5 Consulting Specialty: Hematology/Oncology Hospital Course: Pt is a 67 y/o female with PMH of chronic anemia seen by Dr. 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 Stubbs for a transfusion now complaining of increased congestion and sputum production. 1. 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 Stubbs for transfusions as outpatient -Heme consulted, appreciate recommendations - continue to trend cbc and tranfused as needed - h/h today is 8.2/24.9 today from 6.6/20.4 after pt was transfused yesterday afternoon, pt will be sent home with a script for repeat CBC and follow up with her primary care, chute man and assistant softball coach. - GI consulted for anemia and determined pt does not require inpatient workup for anemia as she has had extensive workup in the past few months. As per Dr. 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 Dr. Pandya recommended pt stop xarelto due to her propensity to bleed and repeat transfusion requirements. This was relayed to the patient. She understands that she is at risk for bleeding from her GI tract but believes that it is worth the risk to avoid a potential stroke from a.fib. Pt states she wants to continue to be on xarelto and is willing to receive transfusions and take iron supplement lifelong. 2. Pseudomonas aeruginosa colonization, possibly causing an acute COPD exacerbation with increased sputum production * The patient has chronic Pseudomonas colonization w/previous history of pneumonia and treatment for pseudomonas. * Pt has been afebrile with a normal WBC, no findings on CXR or physcial exam, and no change from her baseline oxygen requirements. * Will start Ceftaz per ID recommendations. Expect course to end on Saturday AM. Note we are limited in options for PO antibiotics with pseudomonal coverage which will not interfere with tikosyn and possibly convert pt from nsr to a.fib. * pt has completed 5 day course of antibiotics and remains afebrile with a normal WBC. Sputum still is a light yellow but it appears to have improved from admission. No other signs to further prolong antibiotic therapy. 3. History of Afib, controlled, now in NSR - EKG revealed sinus rhythm - continue tikosyn (dofetilide) 250 mcg PO BID - per cardiology: restart nitroglycerin patch at usual dose of 0.4mg/hr - stop xarelto 20 mg po daily today due to anemia/GI bleed 4. History of HTN -Losartan 50 mg -Furosemide 40 mg twice a day -Diltiazem 180mg BID po 5. History of HLD -Vitamin E 400 international units daily -Fish oil 1060mg daily po -Pravastatin 40 mg 6. History of Constipation -Colace 200 mg daily 7. History of COPD (chronic obstructive pulmonary disease) - She is on 2 L of oxygen at home. - Spiriva 1 puff daily - Guaifenesin 600 mg daily - Roflumilast 500mcg daily - TRC consulted, receiving duoneb treatments 8. Psychiatric disorder - history of depression/anxiety/ptsd, pt states she has panic attacks - Sertraline 200 mg - Bupropion 150 mg 9. Thrush - history of thrush. We will continue her home nystatin swish and swallow. - Nystatin 5ml 4 times po - thrush 10. History of Hypothyroid - Continue Levothyroxine 0.1 mg 11. History of GERD (gastroesophageal reflux disease) - Continue Omeprazole 40 mg 12. History of IBS (irritable bowel syndrome) - Continue Dicyclomine 10 mg TID for IBS DVT PPX: rivoraxaban 20 mg po daily stopped today per cardiology, placed on ALPs Diet: Regular Code: Full code Dispo: discharge home today Allergies: Coded Allergies: menotropins (HIVES FROM PERGONAL 11/15/15) apixaban (HEMATOMA TO HIP 02/02/17) Discharge Instructions Medications at Discharge Discharge Medications: Continue taking these medications: Levothyroxine Sodium (Levothyroxine Sodium) 100 MCG TABLET 1 Tablet ORAL DAILY BEFORE BREAKFAST Comments: Last Taken: 04/10/17 Time: 0515AM Sertraline HCl (Zoloft) 100 MG TABLET 2 Tablet ORAL DAILY Comments: Last Taken: 04/10/17 Time: 10 AM Ezetimibe (Zetia) 10 MG TABLET 1 Tablet ORAL Every night Comments: Last Taken: 04/09/17 Time: 2200PM Bupropion HCl (Bupropion HCl Sr) 150 MG TABLET.ER 1 Tablet ORAL Every Morning Comments: Last Taken: 04/09/17 Time: 10 AM Ferrous Sulfate (Ferrous Sulfate) 325 MG (65 MG IRON) TABLET 1 Tablet ORAL THREE TIMES DAILY Comments: Last Taken: 04/10/17 Time: 1000 AM Pravastatin Sodium (Pravachol) 40 MG TABLET 1 Tablet ORAL Every night Comments: NOT GIVEN IN HOSPITAL Docusate Sodium (Colace) 100 MG CAPSULE 2 Capsule ORAL Every night Comments: NOT GIVEN IN HOSPITAL Roflumilast (Daliresp) 500 MCG TABLET 1 Tablet ORAL DAILY Comments: Last Taken: 04/09/17 Time: 1000AM Montelukast Sodium (Montelukast Sodium) 10 MG TABLET 1 Tablet ORAL DAILY Comments: NOT GIVEN IN HOSPITAL Folic Acid (Folic Acid) 1 MG TABLET 1 Tablet ORAL DAILY Comments: NOT GIVEN IN HOSPITAL Vitamin E (Dl,Tocopheryl Acet) (Vitamin E) 400 UNIT CAPSULE 1 Tablet ORAL DAILY Comments: Last Taken: 04/10/17 Time: 1000AM Calcium Carbonate/Vitamin D3 (Caltrate 600 + D Tablet) 1 EACH TABLET 2 Tablet ORAL DAILY Comments: NOT GIVEN IN HOSPITAL Cholecalciferol (Vitamin D3) (Vitamin D3) 400 UNIT TABLET 1 Tablet ORAL DAILY Comments: NOT GIVEN IN HOSPITAL Budesonide (Pulmicort) 0.5 MG/2 ML AMPUL.NEB 1 Vial Inhale Solution TWICE DAILY Comments: NOT GIVEN IN THE HOSPITAL Guaifenesin (Mucinex) 600 MG TAB.ER.12H 1 Tablet ORAL DAILY Comments: Last Taken: 04/10/17 Time: 10 AM Alprazolam (Alprazolam) 0.5 MG TABLET 1 Tablet ORAL TWICE DAILY Comments: Last Taken: 04/10/17 Time: 10 AM Potassium Chloride (Potassium Chloride) 20 MEQ TAB.ER.PRT 1 Tablet ORAL DAILY Qty = 30 Comments: NOT GIVEN IN [facility] Tiotropium [place] (Spiriva) 18 MCG CAP.W.DEV 1 Capsule Inhale through mouth DAILY Qty = 3 Instructions: Reason to Stop at ADM:TRC NEBS ORDERS Comments: Last Taken: 04/10/17 Time: 1000AM Fluticasone/Salmeterol (Advair 250-50 Diskus) 250 MCG-50 MCG/DOSE BLST.W.DEV 1 Puff Inhale through mouth TWICE DAILY Comments: NOT GIVEN IN HOSPITAL Albuterol Sulfate (Albuterol Sulfate) 2.5 MG/3 ML (0.083 %) VIAL.NEB 1 Vial Inhale Solution 4XDAILY as needed for RESPIRATORY Comments: NOT GIVEN IN HOSPITAL Arformoterol Tartrate (Brovana) 15 MCG/2 ML VIAL.NEB 1 VIAL Inhale through mouth DAILY Comments: Last Taken: 04/10/17 Time: 10AM Losartan Potassium (Losartan Potassium) 50 MG TABLET 1 Tablet ORAL TAKE AT BEDTIME Qty = 90 Comments: Last Taken: 04/09/17 Time: 2200PM Nitroglycerin (Nitro-Dur) 0.6 MG/HOUR PATCH.TD24 1 PATCH On the skin DAILY Comments: Last Taken: 04/10/17 Time: 0900 AM Omeprazole (Omeprazole) 40 MG CAPSULE.DR 1 Capsule ORAL DAILY Comments: Last Taken: 04/10/17 Time: 0600AM Acetaminophen (Arthritis Pain Reliever) 650 MG TABLET.ER 2 Tablet ORAL as needed for PAIN Comments: NOT GIVEN IN HOSPITAL Diltiazem HCl (Diltiazem ER) 180 MG CAPSULE.ER 1 Tablet ORAL TWICE DAILY Days = 28 Comments: Last Taken: 04/10/17 Time: 10 AM Rivaroxaban (Xarelto) 20 MG TABLET 1 Tablet ORAL DAILY Qty = 30 Instructions: with food Comments: Last Taken: 04/10/17 Time: 10 AM Dicyclomine HCl (Dicyclomine HCl) 10 MG CAPSULE 1 Capsule ORAL THREE TIMES DAILY Qty = 270 Comments: NOT GIVEN IN HOSPITAL [place]-3 Fatty Acids/Fish Oil (Fish Oil 1,200 MG Softgel) 360 MG-1,200 MG CAPSULE.DR 1 Capsule ORAL DAILY Comments: Last Taken: 04/10/17 Time: 10 AM Cyanocobalamin (Vitamin B-12) (B-12) 1,000 MCG TABLET 1 Tablet ORAL DAILY Comments: NOT GIVEN IN THE HOSPITAL Ascorbic Acid (C-1000) 1,000 MG TABLET 1 Tablet ORAL DAILY Comments: NOT GIVEN IN HOSPITAL Nystatin (Nystatin) 100,000 UNIT/ML ORAL.SUSP 5 Milliliters ORAL 4 TIMES A DAY Qty = 140 Instructions: . Comments: NOT GIVEN IN HOSPITAL Dofetilide (Tikosyn) 250 MCG CAPSULE 1 Capsule ORAL TWICE DAILY Comments: Last Taken: 04/10/17 Time: 10AM Furosemide (Furosemide) 40 MG TABLET 1 Tablet ORAL TWICE DAILY Comments: Last Taken: 04/10/17 Time: 0515AM
== END 2017-04-10 22:25 | disposition home health service (06) | DRG 812 ==
LOC: DELPENDDIS → ERH 18:36 → 2NB 04-04 00:39 → ERHI 04-04 00:39 → ENRESERV 04-04 13:28 → ENTRNSPT 04-04 14:13 → EDTRNSPTSTS 04-04 14:20 → EDTRNSPT 04-04 14:25 → 2NB 04-04 14:28 → CMPTRNSPT 04-04 15:50 → 2NB 04-05 09:18 → ENPENDDIS 04-09 09:40 → 2NB 04-10 22:25
PROVIDERS: Internal Medicine; Pediatrics; Student in an Organized Health Care Education/Training Program; ADMIT Internal Medicine
PROC: 30233N1 Transfusion of Nonautologous Red Blood Cells into Peripheral Vein, Percutaneous Approach (ICD-10-PCS; principal; 2017-04-04)
DX: D62 Acute posthemorrhagic anemia (principal); J96.10 Chronic respiratory failure, unspecified whether with hypoxia or hypercapnia; Z99.81 Dependence on supplemental oxygen; I48.91 Unspecified atrial fibrillation; J44.0 Chronic obstructive pulmonary disease with (acute) lower respiratory infection; I11.0 Hypertensive heart disease with heart failure; I50.32 Chronic diastolic (congestive) heart failure; B37.9 Candidiasis, unspecified; B96.5 Pseudomonas (aeruginosa) (mallei) (pseudomallei) as the cause of diseases classified elsewhere; I25.2 Old myocardial infarction; J44.1 Chronic obstructive pulmonary disease with (acute) exacerbation; Z87.891 Personal history of nicotine dependence; F41.8 Other specified anxiety disorders; D50.9 Iron deficiency anemia, unspecified; Z79.01 Long term (current) use of anticoagulants; J20.8 Acute bronchitis due to other specified organisms; F43.10 Post-traumatic stress disorder, unspecified; K58.9 Irritable bowel syndrome, unspecified; L93.0 Discoid lupus erythematosus; E03.9 Hypothyroidism, unspecified
CPT/HCPCS: 2NBP; 36415; 82436; 86920; 87070; 93005; 93010; 96365; 96366; J0713; J3490; J7605; P9016

== ENCOUNTER 2017-10-03 13:54 | Inpatient (IN) | payer OTHER, MEDICARE ==
[~2017-10-03] VITALS: Ht 154.9 cm; Wt 57.3 kg
[~2017-10-03 13:54] MED LIST changes: +ACETAMINOPHEN500 M4 PO; +ALPRAZOLAM0.25 M1 PO; +CEFTAZIDIME2 GM IV; +CIPRO500 M1 PO; +COZAAR100 M1 PO; +COZAAR50 M1 PO; +FUROSEMIDE40 M1 PO; +HYDROMORPHONE HC4 M1 PO; +LANOXIN125 MCG PO; +LEVAQUIN500 M1 PO; +METOPROLOL TART25 M1 PO; +MIRALAX119 GM PO; +NITROSTAT0.4 M1 SL; +PERCOCET 10-321 EACH PO; +SOLU-MEDRO40 MG/1 ML IV; +WELLBUTRIN SR100 M2 PO; +XANAX0.25 M1 PO
[2017-10-03] MEDS ORDERED: DILTIAZEM 24HR240 MG PO (14:42)
[2017-10-03] MEDS ORDERED: LOSARTAN POTASS50 M1 PO (14:45)
[2017-10-03] MEDS ORDERED: COLACE100 M1 PO (14:46)
[2017-10-03] MEDS ORDERED: XARELTO20 M2 PO (14:46)
--- NOTE | 2017-10-03 14:57 | ED DYSPNEA/ASTHMA COMPLAINT ---
History of Present Illness General Chief Complaint: Dyspnea (COPD, CHF, Other) Stated Complaint: HX OF AFIB,COPD/SOB,WEAKNESS Source: patient, old records Exam Limitations: no limitations Vital Signs & Intake/Output Vital Signs & Intake/Output Vital Signs Date Time Temp Pulse Resp B/P B/P Pulse O2 O2 Flow FiO2 Mean Ox Delivery Rate 10/03 2028 99.3 92 16 142/76 99 Nasal 3.0L Cannula 10/03 1939 97.4 115 25 128/76 98 Nasal 2.0L Cannula 10/03 1820 105 28 129/62 100 Nasal 2.0L Cannula 10/03 1746 100 Nasal 2.0L Cannula 10/03 1733 99.2 120 22 141/69 100 Nasal 2.0L Cannula 10/03 1631 98.2 111 22 145/76 100 Nasal 2.0L Cannula 10/03 1405 97.9 116 18 116/66 97 Nasal 2.0L Cannula Allergies Coded Allergies: menotropins (HIVES FROM PERGONAL 11/15/15) apixaban (HEMATOMA TO HIP 02/02/17) Reconcile Medications Albuterol Sulfate 2.5 MG/3 ML (0.083 %) VIAL.NEB 1 Vial INH/DANIKA PRN RESPIRATORY (Reported) Alprazolam 0.5 MG TABLET 1 TAB PO BIDP PRN ANXIETY (Reported) Budesonide (Pulmicort) 0.5 MG/2 ML AMPUL.NEB 1 Vial INH/DNAIKA BID COPD ( Reported) Bupropion HCl (Wellbutrin Sr) 100 MG TABLET.ER 1 TAB PO QAM Depression/Anxiety Digoxin (Lanoxin) 125 MCG TABLET 1 TAB PO 1700 a. fib Diltiazem HCl (Diltiazem 24HR ER) 240 MG CAP.ER.24H 1 CAP PO BID HEART ( Reported) Docusate Sodium (Colace) 100 MG CAPSULE 2 CAP PO QPM CONSTIPATION (Reported) Ezetimibe (Zetia) 10 MG TABLET 1 TAB PO QPM CHOLESTEROL (Reported) Ferrous Sulfate 325 MG (65 MG IRON) TABLET 1 TAB PO TID SUPPLEMENT (Reported) Fluticasone/Salmeterol (Advair 250-50 Diskus) 250 MCG-50 MCG/DOSE BLST.W.DEV 1 PUF INH BID BREATHING PROBLEMS (Reported) Furosemide 40 MG TABLET 1 TAB PO BID DIURETIC (Reported) Guaifenesin (Mucinex) 600 MG TAB.ER.12H 1 TAB PO DAILY EXPECTORANT (Reported) Levothyroxine Sodium 100 MCG TABLET 1 TAB PO DAILY AC THYROID (Reported) Losartan Potassium 50 MG TABLET 1 TAB PO DAILY HEART (Reported) Metoprolol Tartrate 25 MG TABLET 25 MG PO BID Atrial fibrilation Montelukast Sodium 10 MG TABLET 1 TAB PO DAILY COPD (Reported) Nitroglycerin (Nitro-Dur) 0.6 MG/HOUR PATCH.TD24 1 PATCH TOP DAILY HEART ( Reported) Nitroglycerin (Nitrostat) 0.4 MG TAB.SUBL 1 TAB SL AD PRN CHEST PAIN ( Reported) 1st sign of attack; may repeat every 5 minutes until relief; if pain persists after 3 tablets in 15 minutes, prompt medical att [place]-3 Fatty Acids/Fish Oil (Fish Oil 1,200 MG Softgel) 360 MG-1,200 MG CAPSULE.DR 1 CAP PO DAILY SUPPLEMENT (Reported) Omeprazole 40 MG CAPSULE.DR 1 CAP PO DAILY GI (Reported) Polyethylene Glycol 3350 (Miralax) 17 GRAM/DOSE POWDER 17 GM PO DAILY constipation mix with water, juice, soda, coffee or tea Pravastatin Sodium (Pravachol) 40 MG TABLET 1 TAB PO QPM CHOLESTEROL ( Reported) Prednisone 10 MG TABLET 1 TAB PO DAILY COPD Date #tabs to take 07/27 3 07/28 2 07/29 2 07/30 1 07/31 1 Rivaroxaban (Xarelto) 20 MG TABLET 1 TAB PO DAILY BLOOD THINNER (Reported) with food Roflumilast (Daliresp) 500 MCG TABLET 1 TAB PO DAILY COPD (Reported) . Sertraline HCl (Zoloft) 100 MG TABLET 2 TAB PO DAILY DEPRESSION (Reported) Tiotropium [place] (Spiriva) 18 MCG CAP.W.DEV 1 CAP INH DAILY copd Reason to Stop at ADM:TRC NEBS ORDERS Vitamin E (Dl,Tocopheryl Acet) (Vitamin E) 400 UNIT CAPSULE 1 TAB PO DAILY SUPPLEMENT (Reported) Triage Note: PT TO ED FOR WORSENING SOB AND PALPITATIONS OVER THE PAST SEVERAL DAYS. DENIES ANY ASSOCIATED CP. Triage Nurses Notes Reviewed? yes Onset: Abrupt Duration: day(s): (5-7), getting worse Timing: recent history Severity: moderate, severe HPI: 67-year-old female comes into emergency room for further evaluation of increased shortness of breath and weakness. Patient has a history of A. fib, CHF, COPD. She reports a cough but no fever chills. Denies any chest pain. She's had a 7 pound weight gain. She has a filter in the right side of her heart. She reports increased weakness and shortness of breath over the past 5-7 days. She reports that she walks the other room and feels winded. She is on oxygen 24 hours a day chronically. 2 liters normally. (Guzman Gonzalez) Past History Travel History Traveled to [place] past 21 day No Medical History Any Pertinent Medical History? 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: miscarriage, HPV (PER PT) Other Medical Hx: discoid lupus eczema History of MRSA: No History of VRE: No History of CDIFF: No Influenza Vaccine: 06/23/17 Tetanus Vaccine: 02/07/16 Surgical History Surgical History: appendectomy, hernia repair-hiatal tonsillectomy Psychosocial History Who do you live with Patient/Self Services at Home Oxygen What is your primary language Cymro Tobacco Use: Never used ETOH Use: denies use Illicit Drug Use: denies illicit drug use Family History Family History, If Any: MOTHER FH: CAD (coronary artery disease) FH: COPD (chronic obstructive pulmonary disease) FH: heart disease FATHER Alzheimer's disease BROTHER FH: CAD (coronary artery disease) BROTHER FH: CAD (coronary artery disease) BROTHER FH: CAD (coronary artery disease) Hx Contributory? No (Guzman Gonzalez) Review of Systems Review of Systems Constitutional: Reports: see HPI. EENTM: Reports: no symptoms. Respiratory: Reports: see HPI. Cardiovascular: Reports: see HPI. GI: Reports: no symptoms. Genitourinary: Reports: no symptoms. Musculoskeletal: Reports: no symptoms. Skin: Reports: no symptoms. Neurological/Psychological: Reports: no symptoms. Hematologic/Endocrine: Reports: no symptoms. Immunologic/Allergic: Reports: no symptoms. All Other Systems: Reviewed and Negative (Guzman Gonzalez) Physical Exam Physical Exam General Appearance: alert, awake, mild distress, thin Head: atraumatic Eyes: Bilateral: normal appearance. Ears, Nose, Throat: normal ENT inspection, hearing grossly normal Neck: normal inspection Respiratory: decreased breath sounds, respiratory distress (mild) Cardiovascular: irregularly irregular Extremities: no edema Neurologic/Psych: awake, alert, oriented x 3 Skin: intact, normal color Core Measures ACS in differential dx? Yes CVA/TIA Diagnosis No Sepsis Present: No Sepsis Focused Exam Completed? No (Guzman Gonzalez) Progress Differential Diagnosis: asthma, AMI, bronchitis, CHF, COPD, pericarditis, pulmonary embolism, pneumonia, pneumothorax, unstable angina Plan of Care: Orders Procedure Date/time Status Nothing by Mouth 10/04 D Active Nothing by Mouth 10/04 B Active ICU LAB BUNDLE 10/04 0500 Active CBC WITHOUT DIFFERENTIAL 10/04 0500 Active TROPONIN LEVEL 10/04 0300 Active EKG 10/04 0300 Active TROPONIN LEVEL 10/03 2200 Active EKG 10/03 220 Active RT: Evaluation 10/03 2124 Active VRE ACTIVE SURVIELLANCE 10/03 2103 Active ACTIVE SURVEILLANCE NARES 10/03 2103 Active TRC EVALUATION (GEN) 10/03 2035 Active OXYGEN SETUP (GEN) 10/03 2035 Active CULTURE,URINE 10/03 2035 Active LOWER RESPIRATORY CULTURE 10/03 2035 Active BLOOD CULTURE 10/03 2035 Active URINALYSIS 10/03 2035 Active Code Status 10/[address] CHEST WO IV CONTRAST 10/03 1940 Active Admit to inpatient 10/03 1847 Active Patient Data 10/03 1812 Active Patient Data 10/03 1809 Active BLOOD PRODUCT PICKUP 10/03 1640 Active Add-on Test (ER Only) 10/03 1633 Active Intake & Output 10/03 1631 Active Add-on Test (ER Only) 10/03 1629 Active LEUKOCYTE POOR (PACKED CELLS) 10/03 1629 Active PARTIAL THROMBOPLASTIN TIME 10/03 1600 Complete PROTHROMBIN TIME 10/03 1600 Complete DIGOXIN 10/03 1600 Active TYPE & SCREEN (NOT X-MATCH) 10/03 1600 Active Add-on Test (ER Only) 10/03 1453 Active Telemetry/Radio Commentator 10/03 1453 Active TROPONIN LEVEL 10/03 1453 Active COMPREHENSIVE METABOLIC PANEL 10/03 1453 Active CBC WITHOUT DIFFERENTIAL 10/03 1453 Complete B-TYPE NATRIURETIC PEP (BNP) 10/03 1453 Active EKG 10/03 1355 Active Lab Add-on Test 10/03 UNK Active VTE Mechanical Prophylaxis 10/03 UNK Active Vital Signs 10/03 UNK Active Nursing Misc 10/03 UNK Active Current Medications Sig/Lana Start time Last Medication Dose Stop Time Status Admin Bupropion HCl 100 MG QAM 10/04 1000 AC (Wellbutrin SR) Guaifenesin 600 MG DAILY 10/04 1000 AC (Mucinex) Losartan Potassium 50 MG DAILY 10/04 1000 AC (Cozaar) Montelukast Sodium 10 MG DAILY 10/04 1000 AC (Singulair) Nitroglycerin 0.6 MG DAILY 10/04 1000 AC (Transderm Nitro 15MG (Nitro-Dur) 0.6MG/Hr) Sertraline HCl 200 MG DAILY 10/04 1000 AC (Zoloft) Tiotropium [place] 1 PUF DAILY 10/04 1000 AC (Spiriva) Levothyroxine Sodium 0.1 MG DAILY AC 10/04 0700 AC (Synthroid) Alprazolam 0.5 MG BID PRN 10/03 2200 AC (Xanax) 10/10 2158 Diltiazem HCl 240 MG BID 10/03 2199 AC (Cardizem CD) Docusate Sodium 200 MG QPM 10/03 2199 AC (Colace) Ezetimibe 10 MG QPM 10/03 220 AC (Zetia) Ferrous Sulfate 325 MG TID 10/03 2199 AC (Feosol) Furosemide 40 MG BID 10/03 2199 AC (Lasix) Pantoprazole Sodium 40 MG BID 10/03 2199 AC (Protonix) Pravastatin Sodium 40 MG QPM 10/03 2199 AC (Pravachol) Acetaminophen 650 MG Q4P PRN 10/03 2129 UNVr (Tylenol) Oxycodone/ 1 TAB Q6P PRN 10/03 2129 UNVr Acetaminophen (Percocet) Albuterol Sulfate 2.5 ML Q4 HRS NEEDED PRN 10/03 204 AC (Proventil) Laboratory Tests 10/03/17 1600: Anion Gap 16, Estimated GFR > 60, BUN/Creatinine Ratio 28.6 H, Glucose 106 H, Calcium 8.9, Total Bilirubin 0.1 L, AST 20, ALT 36, Alkaline Phosphatase 60, Troponin I 0.05, Xab-A-Onucqqtxuea Pept 3840 H, Total Protein 5.7 L, Albumin 3.7, Globulin 2.0, Albumin/Globulin Ratio 1.9, PT 35.2 H, INR 3.39 H, APTT 40 H, CBC w Diff NO MAN DIFF REQ, RBC 1.91 L, MCV 88.5, MCH 28.2, RDW 18.4 H, MPV 5.6 L, Gran % 94.4 H, Lymphocytes % 2.9 L, Monocytes % 2.5, Eosinophils % 0.2 , Basophils % 0, Absolute Granulocytes 16.2 H, Absolute Lymphocytes 0.5 L, Absolute Monocytes 0.4, Absolute Eosinophils 0, Absolute Basophils 0, PUBS MCHC 31.8 L, Digoxin Pending Microbiology 10/03 2103 UPPER RESP: Surveillance Culture - ORD 10/03 2103 GI: Surveillance Culture - ORD 10/03 2035 URINE ROUT: Urine Culture - ORD 10/03 2035 LOWER RESP: Respiratory Culture - ORD 10/03 2035 LOWER RESP: Gram Stain - ORD 10/03 2035 BLOOD: Blood Culture - ORD Diagnostic Imaging: Viewed by Me: Radiology Read. Discussed w/RAD: Radiology Read. Radiology Impression: PATIENT: STEPH LEOS PRESENT AGE: 67 PATIENT ACCOUNT NO: [id number] : 50 LOCATION: [facility] ORDERING PHYSICIAN: Guzman EVERETT SERVICE DATE: 10/03/17 EXAM TYPE: RAD - XRY-PORTABLE CHEST XRAY EXAMINATION: XR PORTABLE CHEST CLINICAL INFORMATION: Shortness of breath COMPARISON: Prior chest x-ray June 2017. Chest CT June 2017. TECHNIQUE: Portable frontal view of the chest was obtained. FINDINGS: No significant abnormality is noted involving the heart, lungs, mediastinum, bony thorax or soft tissues. IMPRESSION: Unremarkable examination. DICTATED BY: Lebron Pedraza MD DATE/TIME DICTATED:10/03/171506 PHARMACEUTICAL OFFICER: PAPO DATE/TIME TRANSCRIBED:10/03/171506 CONFIDENTIAL, DO NOT COPY WITHOUT APPROPRIATE AUTHORIZATION. <Electronically signed in Other Vendor System> SIGNED BY: Lebron Pedraza MD 10/03/17 1512 Initial ED EKG: rate (117), AFIB (Guzman Gonzalez) Departure Departure Disposition: STILL A PATIENT Condition: Stable Clinical Impression Primary Impression: Acute GI bleeding Secondary Impressions: Symptomatic anemia Referrals: Gerard Rodas MD (PCP/Family) Departure Forms: Customer Survey General Discharge Information (Guzman Gonzalez) Admission Note Spoke With: Kristy Vaca MD Documentation of Exam: Documentation of any treatments & extenuating circumstances including Concerns Regarding Discharge (functional status, medication knowledge or non-compliance, living conditions, etc.) that warrant an admission rather than observation: [The patient needs admission to the ICU for blood transfusion, GI consultation, serial hemoglobin and hematocrits, IV H2 blockers, monitoring engineer] PA/BARREL ENDSHAKER ADJUSTER Co-Sign Statement Statement: ED Attending supervision documentation- [X] I saw and evaluated the patient. I have also reviewed all the pertinent lab results and diagnostic results. I agree with the findings and the plan of care as documented in the PA's/BARREL ENDSHAKER ADJUSTER's documentation. [] I have reviewed the ED Record and agree with the PA's/BARREL ENDSHAKER ADJUSTER's documentation. [] Additions or exceptions (if any) to the PAs/BARREL ENDSHAKER ADJUSTER's note and plan are summarized below: [] (Senthil Mao DO) Critical Care Note Critical Care Note Critical Care Time: 30-74 min (45) (Guzman Gonzalez)
--- NOTE | 2017-10-03 15:12 | RADIOLOGY REPORT ---
EXAMINATION: XR PORTABLE CHEST CLINICAL INFORMATION: Shortness of breath COMPARISON: Prior chest x-ray June 2017. Chest CT June 2017. TECHNIQUE: Portable frontal view of the chest was obtained. FINDINGS: No significant abnormality is noted involving the heart, lungs, mediastinum, bony thorax or soft tissues. IMPRESSION: Unremarkable examination.
[2017-10-03 16:16] LABS: ABSOLUTE BASOPHIL COUNT 0 /CUMM (0.0-0.2); ABSOLUTE EOSINOPHIL COUNT 0 /CUMM (0.0-0.7); BASOPHIL % 0 % (0.0-2.0); EOSINOPHIL % 0.2 % (0-5)
[2017-10-03 16:22] LABS: ABSOLUTE GRANULOCYTE CT 16.2 /CUMM (1.4-6.5); ABSOLUTE LYMPH COUNT 0.5 /CUMM (1.2-3.4); ABSOLUTE MONOCYTE COUNT 0.4 /CUMM (0.10-0.60); MEAN CORPUSCULAR HGB 28.2 PG (27.0-31.0); MEAN CORPUSCULAR HGB CONC 31.8 G/DL (33.0-37.0); MEAN CORPUSCULAR VOLUME 88.5 FL (81.0-99.0); MEAN PLATELET VOLUME 5.6 FL (7.4-10.4); PLATELET COUNT 981 /CUMM (130-400); RBC DISTRIBUTION WIDTH 18.4 % (11.5-14.5); RED BLOOD CELL CT 1.91 /CUMM (4.20-5.40); WHITE BLOOD CELL COUNT 17.1 /CUMM (4.8-10.8)
[2017-10-03 16:24] LABS: HEMATOCRIT 16.9 % (37-47)
[2017-10-03 16:34] LABS: GRANULOCYTE % 94.4 % (42.2-75.2)
[2017-10-03 17:04] LABS: PT 35.2 SEC (9.4-12.5); PTT 40 SEC (25-37)
--- NOTE | 2017-10-03 18:14 | History & Physical ---
Vinh Beckham 10/03/171813: General Information and HPI MD Statement: I have seen and personally examined STEPH LEOS and documented this H&P. The patient is a 67 year old F who presented with a patient stated chief complaint of numbness of breath Source of Information: patient, old records Exam Limitations: no limitations History of Present Illness: 67 -year-old woman with PMH significant for A.fib currently on Xarelto, COPD on home oxygen of 2L [place], on chronic prednisone 10 mg since August 2017 , chronic GI bleeding and iron deficiency anemia 10/25 to AVM malformation s/p balloon enteroscopy 12/07 requiring multiple transfusions, followed by Dr. Bray and Dr. Woods, HFpEF, HTN, Hypothyroidism, CAD, recent admission BIBA with symptoms of palpitations and fatigue, recent admission to [facility] 07/17/17-07/25 for pseudomonal pneumonia, right arm hematoma and GI bleed secondary to AVM requiring transfusions coming in for evaluation of worsening fatigue, shortness of breath and intermittent palpitations of 2 weeks duration. Her symptoms have been worsening for the past 2 weeks and have become very severe in the last 3 days where she is short of breath at rest. She also complains of worsening heartburn since the past few months associated with cough with whitish to grayish expectoration. She was admitted to [facility] in [place] and underwent a watchman device placement under Dr. Celis on 09/09/2017 after the procedure she notes that she has been having hemoptysis which has been gradually improving but she continues to have blood-streaked sputum. Her daughter apparently has also been recently sick with upper respiratory symptoms Of note on her last admission to [facility] she was instructed to start metoprolol 25 mg twice a day and patient states that she has not been taking this. She has not been taking her iron pills since the past one week as she ran out of them. Denies fever, chills, chest pain, bright red bleeding per rectum, lower extremity swelling, orthopnea. States her stools are dark as she is on iron pills. Allergies/Medications Allergies: Coded Allergies: menotropins (HIVES FROM PERGONAL 11/15/15) apixaban (HEMATOMA TO HIP 02/02/17) Home Med list Albuterol Sulfate 2.5 MG/3 ML (0.083 %) VIAL.NEB 1 Vial INH/DANIKA PRN RESPIRATORY (Reported) Alprazolam 0.5 MG TABLET 1 TAB PO BIDP PRN ANXIETY (Reported) Budesonide (Pulmicort) 0.5 MG/2 ML AMPUL.NEB 1 Vial INH/DANIKA BID COPD ( Reported) Bupropion HCl (Wellbutrin Sr) 100 MG TABLET.ER 1 TAB PO QAM Depression/Anxiety Digoxin (Lanoxin) 125 MCG TABLET 1 TAB PO 1700 a. fib Diltiazem HCl (Diltiazem 24HR ER) 240 MG CAP.ER.24H 1 CAP PO BID HEART ( Reported) Docusate Sodium (Colace) 100 MG CAPSULE 2 CAP PO QPM CONSTIPATION (Reported) Ezetimibe (Zetia) 10 MG TABLET 1 TAB PO QPM CHOLESTEROL (Reported) Ferrous Sulfate 325 MG (65 MG IRON) TABLET 1 TAB PO TID SUPPLEMENT (Reported) Fluticasone/Salmeterol (Advair 250-50 Diskus) 250 MCG-50 MCG/DOSE BLST.W.DEV 1 PUF INH BID BREATHING PROBLEMS (Reported) Furosemide 40 MG TABLET 1 TAB PO BID DIURETIC (Reported) Guaifenesin (Mucinex) 600 MG TAB.ER.12H 1 TAB PO DAILY EXPECTORANT (Reported) Levothyroxine Sodium 100 MCG TABLET 1 TAB PO DAILY AC THYROID (Reported) Losartan Potassium 50 MG TABLET 1 TAB PO DAILY HEART (Reported) Metoprolol Tartrate 25 MG TABLET 25 MG PO BID Atrial fibrilation Montelukast Sodium 10 MG TABLET 1 TAB PO DAILY COPD (Reported) Nitroglycerin (Nitro-Dur) 0.6 MG/HOUR PATCH.TD24 1 PATCH TOP DAILY HEART ( Reported) Nitroglycerin (Nitrostat) 0.4 MG TAB.SUBL 1 TAB SL AD PRN CHEST PAIN ( Reported) 1st sign of attack; may repeat every 5 minutes until relief; if pain persists after 3 tablets in 15 minutes, prompt medical att Revillo-3 Fatty Acids/Fish Oil (Fish Oil 1,200 MG Softgel) 360 MG-1,200 MG CAPSULE.DR 1 CAP PO DAILY SUPPLEMENT (Reported) Omeprazole 40 MG CAPSULE.DR 1 CAP PO DAILY GI (Reported) Polyethylene Glycol 3350 (Miralax) 17 GRAM/DOSE POWDER 17 GM PO DAILY constipation mix with water, juice, soda, coffee or tea Pravastatin Sodium (Pravachol) 40 MG TABLET 1 TAB PO QPM CHOLESTEROL ( Reported) Prednisone 10 MG TABLET 1 TAB PO DAILY COPD Date #tabs to take 07/27 3 07/28 2 07/29 2 07/30 1 07/31 1 Rivaroxaban (Xarelto) 20 MG TABLET 1 TAB PO DAILY BLOOD THINNER (Reported) with food Roflumilast (Daliresp) 500 MCG TABLET 1 TAB PO DAILY COPD (Reported) . Sertraline HCl (Zoloft) 100 MG TABLET 2 TAB PO DAILY DEPRESSION (Reported) Tiotropium Warren (Spiriva) 18 MCG CAP.W.DEV 1 CAP INH DAILY copd Reason to Stop at ADM:[facility] NEBS ORDERS Vitamin E (Dl,Tocopheryl Acet) (Vitamin E) 400 UNIT CAPSULE 1 TAB PO DAILY SUPPLEMENT (Reported) Compliance With Home Meds: GOOD Past History Travel History Traveled to [place] past 21 day No Medical History Neurological: NONE EENT: NONE Cardiovascular: AFIB, CAD, diastolic CHF, hypertension, hyperlipidemia, myocardial infarction (in 1995) Respiratory: COPD (on 2L @home), pneumonia (pseudomonas) Gastrointestinal: GERD, irritable bowel syndrome, 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 diverticulosis Hepatic: NONE Renal: NONE Musculoskeletal: fibromyalgia, osteoarthritis, spinal stenosis Psychiatric: anxiety, depression, PTSD Endocrine: hypothyroidism Blood Disorders: anemia (iron deficiency) Cancer(s): SKIN CANCER 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: miscarriage, HPV (PER PT) Other Medical Hx: discoid lupus eczema History of MRSA: No History of VRE: No History of CDIFF: No Influenza Vaccine: 06/23/17 Tetanus Vaccine: 02/07/16 Surgical History Surgical History: appendectomy, hernia repair-hiatal tonsillectomy Past Family/Social History Family History Relations & Conditions if any MOTHER FH: CAD (coronary artery disease) FH: COPD (chronic obstructive pulmonary disease) FH: heart disease FATHER Alzheimer's disease BROTHER FH: CAD (coronary artery disease) BROTHER FH: CAD (coronary artery disease) BROTHER FH: CAD (coronary artery disease) Psychosocial History Who Do You Live With? child Services at Home: Oxygen Primary Language: Dominican ETOH Use: denies use Illicit Drug Use: denies illicit drug use Functional Ability ADLs Independent: dressing, eating, toileting, bathing. Ambulation: independent IADLs Independent: shopping, housework, finances, food prep, telephone, transportation , medication admin. Review of Systems Review of Systems Constitutional: Reports: weakness. Denies: chills, diaphoresis, fever, malaise, unexplained weight loss. Cardiovascular: Reports: palpitations. Respiratory: Reports: short of breath, wheezing. GI: Denies: abdominal pain, bloating, constipation, diarrhea, distention, bowel incontinence, melena, nausea, bloody stool, changes in stool, vomiting, steatorrhea. Genitourinary: Denies: discharge, dysuria, frequency, hematuria, hesitation, nocturia, pain, urgency. Exam & Diagnostic Data Last 24 Hrs of Vital Signs/I&O Vital Signs Date Time Temp Pulse Resp B/P B/P Pulse O2 O2 Flow FiO2 Mean Ox Delivery Rate 10/030 Nasal 2.0L Cannula 10/03 2028 99.3 92 16 142/76 99 Nasal 3.0L Cannula 10/03 1938 97.4 115 25 128/76 98 Nasal 2.0L Cannula 10/03 1820 105 28 129/62 100 Nasal 2.0L Cannula 10/03 1746 100 Nasal 2.0L Cannula 10/03 1733 99.2 120 22 141/69 100 Nasal 2.0L Cannula 10/03 1631 98.2 111 22 145/76 100 Nasal 2.0L Cannula 10/03 1405 97.9 116 18 116/66 97 Nasal 2.0L Cannula Intake & Output 10/03 1600 10/03 0800 10/03 0000 Intake Total Output Total Balance Patient 115 lb Weight Weight Reported by Patient Measurement Method Physical Exam General Appearance Alert, Oriented X3, Cooperative, No Acute Distress Skin No Breakdown, No Significant Lesion Skin Temp/Moisture Exam: Warm/Dry Sepsis Skin Exam (color): Pale HEENT PERRLA, EOMI, Mucous Membr. moist/pink, pallor Neck Supple, No JVD, No thryomegaly Lymphatic Axillary nl, Cervical nl Cardiovascular irregularly irregular Lungs b/l crackles Abdomen Normal Bowel Sounds, Soft, No Tenderness Extremities No Edema Diagnostic Data EKG Results Atrial fibrillation, heart rate 117, QTC 402 CXR Results SERVICE DATE: 10/03/17-1453 EXAM TYPE: RAD - XRY-PORTABLE CHEST XRAY FINDINGS: No significant abnormality is noted involving the heart, lungs, mediastinum, bony thorax or soft tissues. IMPRESSION: Unremarkable examination. Other Results SERVICE DATE: 10/03/17 EXAM TYPE: CAT - CT CHEST WO IV CONTRAST FINDINGS: LUNGS: There is waxing and waning opacities of peripheral alveolar and consolidated opacities at both lung bases greater on right than left. Lungs were clear on the CT scan of 02/09/2017 which showed confluent airspace opacities at the right lung base on 05/09/2017 with a clear left lung base. By the 07/06/2017 study airspace disease is now present at the left lung base but the right lung base has nearly cleared. By 09/13/2017 airspace disease of the right lung base again worsened and the left lung disease has improved slightly. On today's study there is persistent bibasilar scattered airspace focal consolidation. This has improved slightly at the right lung base since 09/11/2017 but worsened on the left side. Some disease is also seen in the right middle lobe on today's study as well. Small focus of opacity subpleural lung in the right upper lobe as well, axial image 217 (6). Marked soriano emphysematous changes of lung. Central bronchi are open. No bronchiectasis. MEDIASTINUM: Borderline mediastinal adenopathy measuring up to about 1 cm in size with lymph nodes in the pretracheal retrovascular space, AP window. These could be reactive. Heart size enlarged. No pericardial effusion. There is vascular wall calcifications of aorta. Calcification of the coronary arteries. Calcification of mitral valve annulus. Cardiac stent at the left lateral wall of the left atrium. PLEURA: There is no pleural effusion. No pleural mass or thickening. AXILLA: No lymphadenopathy. UPPER ABDOMEN: 1.8 cm cyst in the upper pole of left kidney. Hyperdense cysts measuring 0.8 cm in the upper pole of left kidney. OSSEOUS STRUCTURES: Degenerative spondylosis of dorsal spine with multilevel endplate spurs of the vertebrae. IMPRESSION: 1. Waxing and waning of the bilateral airspace disease, pneumonia. 2. There is emphysematous changes of lung. Assessment/Plan Assessment: 67 -year-old woman with PMH significant for A.fib currently on Xarelto, COPD on home oxygen of 2L NC, on chronic prednisone 10 mg since August 2017 , chronic GI bleeding and iron deficiency anemia 2/ to AVM malformation s/p balloon enteroscopy 12/07 requiring multiple transfusions, followed by Dr. Bray and Dr. Woods, HFpEF, HTN, Hypothyroidism, CAD, recent admission BIBA with symptoms of palpitations and fatigue, recent admission to [facility] 07/17/17-07/25 for pseudomonal pneumonia, right arm hematoma and GI bleed secondary to AVM requiring transfusions coming in for evaluation of worsening fatigue, shortness of breath and intermittent palpitations of 2 weeks duration. Vitals on admission: Tmax 99.2, heart rate 111, respiratory 22, blood pressure 141/69 saturating 100% on 2 L nasal cannula Labs significant for leukocytosis of 17.1, H&H of 5.4/16.9, platelet in 1981, sodium 138, potassium 3.5, chloride 93, bicarbonate 29, B1 20, creatinine 0.7, PTT 35.2, INR 3.39, APTT 40, glucose 106, proBNP 3000 840, normal LFTs. EKG shows atrial fibrillation heart rate of 117 Last echo done 06/17/2017 showing EF of 60% and RV pressure 22 mmhg Unremarkable examination on chest x-ray CT chest without contrast significant for: 1. Waxing and waning of the bilateral airspace disease, pneumonia. 2. There is emphysematous changes of lung. ED course: Given one-time ceftriaxone Assessment: Acute on chronic anemia, COPD exacerbation secondary to underlying healthcare associated pneumonia Problem list: Acute on chronic anemia/AV malformation COPD exacerbation Atrial fibrillation Coronary artery disease Hypothyroidism Plan: Acute on chronic anemia/AV malformation Admit to ICU, vitals per protocol maintain 2 large IV borderlines at all times Keep nothing by mouth overnight transfuse PRBC to keep Hb >8, continue to monitor CBC Continue oral iron supplementation. IV PPI daily holding Xarelto Dr. Orlando was called by ER, GI consult placed Notify GI for signs of overt GI bleeding. Courtesy call placed to Dr. Stubbs Coag-positive in ED COPD exacerbation secondary to pneumonia CRCU consult in a.m. IV 125 Solu-Medrol now and continue with IV 40 every 8 She has grown Pseudomonas in the past which was pansensitive, will start IV fortaz pending blood and sputum cultures TRC/nebs, continue supplemental oxygen Atrial fibrillation/Coronary artery disease/HFpEF Trend troponin/ EKG Holding Xarelto, dig level 1.[address] Naranjo, please follow up with him regarding her metoprolol Continue digoxin, diltiazem, statin and Lasix Hypothyroidism Continue levothyroxine TSH DVT prophylaxis Alps Patient is full code As Ranked By This Provider Problem List: 1. Afib 2. COPD (chronic obstructive pulmonary disease) 3. HCAP (healthcare-associated pneumonia) 4. Hypertension 5. Hypothyroidism Core Measures/Misc (06/09) Acute Coronary Syndrome ACS Diagnosis: No Congestive Heart Failure Congestive Heart Failure Diagnosis No Cerebrovascular Accident CVA/TIA Diagnosis: No VTE (View Protocol) VTE Risk Factors Acute Medical Illness No Mechanical VTE Prophylaxis d/t N/A MechProphylax Ordered No VTE Pharm Prophylaxis d/t Medical Contraindication Sepsis (View protocol) Sepsis Present: No Macho ETIENNE, [facility] 10/03/17 2321: Attending MD Review Statement Attending Statement Attending MD Statement: examined this patient, discuss w/resident/PA/TRICOT KNITTER, agreed w/resident/PA/TRICOT KNITTER, reviewed images, amended to note Attending Assessment/Plan: 67 yo F has an extensive past medical history of HTN, CAD s/p IWMI, chronic hypoxic respiratory failure, severe COPD on 2L O2 with multiple exacerbations, pseudomonas colonization, chronic diastolic heart failure, chronic pain, iron deficiency anemia 2/2 small bowel AVMs s/p balloon enteroscopy at [facility] with cautery of small bowel AVM (2016) and Afib s/p cardioversion on xarelto She was recently admitted to [place] (Jun-Jul 2017) for anemia 2/2 chronic GI bleed requiring PRBC, Afib with RVR, pseudomonal pneumonia and COPDE discharged to [facility]. Xarelto was initially held and resumed post discharge. She was advised metoprolol, cardizem and digoxin for rate control, but reports not been taking metoprolol. She has also not followed up with GI post discharge. She then underwent placement of Watchman device (left atrial appendage closure) at [facility] by Dr. Celis (Sep 09, 2017), with eventual plan for ablation or PPM by Dr. Naranjo. She recollects having hemoptysis (cough with dark blood) and sore throat for 1 week post procedure which she attributes to the difficult intubation. She is here today for c/o palpitations, fatigue and exertional dyspnea that is ongoing for the past 1-2 weeks but worse over past 3 days, associated with cough productive of yellow-brown phlegm with occasional streaks of blood. She has had to increase her O2 from 2 to 3 L to maintain sats. Sick contact+ daughter with URI symptoms. She was seen at the COPD clinic last month, was prescribed prednisone 10 mg daily and Zpak, she continues to take prednisone daily. C/o heartburn but has improved on PPI. She denies any NSAID use. Patient ran out of her iron pills for past 1 week. She denies BRBPR, melena or hematemesis. She does have dark stools while on iron tablets. She also c/o occasional 'hot flash' sensation in her abdomen for which she underwent CT abd/pelvis (Sep 13) and was ruled out for mesenteric ischemia. Vitals stable except for tachycardia to 100-120's. Exam: AAO, in mild respiratory distress, able to speak in full sentences. MMM, Neck supple, pallor++, Chest rscattered rhonchi (L>R) with few expiratory wheezes. Heart S1S2 irregularly irregular. Abd soft, NT. LE: no edema. Labs: WBC 17.1, H/H 5.4/16.9 (8-10/-), plt 981, INR 3.39, BUN 20, trop 0.05, proBNP 3840, Digoxin level 1.4. CXR: unremarkable. CT chest: waxing and waning of bilateral arispace disease, pneumonia (persistent bibasilar focal consolidation L>R), emphysema. EKG: Afib @ 117, [address] depression with TWI in V4-6 (new), Qtc 402. Echo (May 2017): EF 60%, mod AR. Rectal exam done in ER: heme positive stool. In the ER, patient received IV ceftriaxone for concerns of GI bleeding but there was no evidence of active bleeding. Assessment and plan: 1. Acute anemia of chronic GI blood loss from AVM's without active bleeding 2. Symptomatic anemia 3. Chronic persistent atrial fibrillation s/p Watchman device 4. Chronic hypoxic respiratory failure 5. Recurrent bibasilar pneumonia (L>R) pseudomonas colonization 6. Acute exacerbation of COPD 7. Reactive thrombocytosis - Admit to ICU - Vitals Q 1 hour - Type and crossmatch, tranfuse 2 units PRBC - Two wide bore peripheral lines - Goal Hb > 8.0 - Guaiac all stools, CBC twice daily - Continue IV PPI - NPO for now, if signs of active bleeding inform GI stat - GI consult, may need outpatient repeat enteroscopy - Hold xarelto, no NSAIDs - TRC nebs - Sputum and blood cultures - Initiate IV ceftaz - IV solumedrol followed by rapid taper - CRCU consult - Resume digoxin and cardizem for rate control. - Please note, patient was not taking metoprolol that was prescribed during last admission in Jul 2017. - Obtain Cardio consult - Serial EKG and troponin - Hold off echo for now DVT ppx Alps. Full code. TTS > 55 mins
--- NOTE | 2017-10-03 22:01 | CT SCAN REPORT ---
EXAMINATION: CT CHEST WITHOUT CONTRAST CLINICAL INFORMATION: Productive cough. COMPARISON: CT chest 02/09/2017, 05/09/2017, 07/06/2017, 07/17/2017. CT abdomen pelvis 09/13/2017. TECHNIQUE: Multidetector volumetric CT imaging of the chest was done. Axial MIP volume rendering provided. Sagittal and coronal reformatted images were obtained. DLP: 188.38 mGy-cm FINDINGS: LUNGS: There is waxing and waning opacities of peripheral alveolar and consolidated opacities at both lung bases greater on right than left. Lungs were clear on the CT scan of 02/09/2017 which showed confluent airspace opacities at the right lung base on 05/09/2017 with a clear left lung base. By the 07/06/2017 study airspace disease is now present at the left lung base but the right lung base has nearly cleared. By 09/13/2017 airspace disease of the right lung base again worsened and the left lung disease has improved slightly. On today's study there is persistent bibasilar scattered airspace focal consolidation. This has improved slightly at the right lung base since 09/11/2017 but worsened on the left side. Some disease is also seen in the right middle lobe on today's study as well. Small focus of opacity subpleural lung in the right upper lobe as well, axial image 217 (6). Marked soriano emphysematous changes of lung. Central bronchi are open. No bronchiectasis. MEDIASTINUM: Borderline mediastinal adenopathy measuring up to about 1 cm in size with lymph nodes in the pretracheal retrovascular space, AP window. These could be reactive. Heart size enlarged. No pericardial effusion. There is vascular wall calcifications of aorta. Calcification of the coronary arteries. Calcification of mitral valve annulus. Cardiac stent at the left lateral wall of the left atrium. PLEURA: There is no pleural effusion. No pleural mass or thickening. AXILLA: No lymphadenopathy. UPPER ABDOMEN: 1.8 cm cyst in the upper pole of left kidney. Hyperdense cysts measuring 0.8 cm in the upper pole of left kidney. OSSEOUS STRUCTURES: Degenerative spondylosis of dorsal spine with multilevel endplate spurs of the vertebrae. IMPRESSION: 1. Waxing and waning of the bilateral airspace disease, pneumonia. 2. There is emphysematous changes of lung.
--- NOTE | 2017-10-03 22:57 | Admission Certification ---
Admission Certification Certification Statement - As attending physician, I certify that at the time of - admission, based on clinical presentation, severity of - symptoms, need for further diagnostic testing and - therapeutic interventions, and risk of adverse outcomes - without in-hospital treatment, in my clinical assessment, - this patient requires an acute hospital stay for a minimum - of two nights or longer. I have also considered psychsocial - factors such as support system, advanced age, financial - issues, cognitive issues, and failed out-patient treatments, - past re-admission history, safety of patient, and lack of - compliance as applicable. Specific rationale supporting this admission is: Acute on chronic anemia of GI loss, symptomatic anemia, bibasilar pneumonia with COPD exacerbation, requiring ICU level of care.
[2017-10-04] VITALS: BP 132/82
[2017-10-04 04:00] VITALS: BP 140/70
[2017-10-04 05:10] LABS: ABSOLUTE BASOPHIL COUNT 0 /CUMM (0.0-0.2); ABSOLUTE EOSINOPHIL COUNT 0 /CUMM (0.0-0.7); ABSOLUTE GRANULOCYTE CT 16.4 /CUMM (1.4-6.5); ABSOLUTE LYMPH COUNT 0.6 /CUMM (1.2-3.4); ABSOLUTE MONOCYTE COUNT 0 /CUMM (0.10-0.60); BASOPHIL % 0 % (0.0-2.0); EOSINOPHIL % 0 % (0-5); GRANULOCYTE % 96.4 % (42.2-75.2); MEAN CORPUSCULAR HGB 28.3 PG (27.0-31.0); MEAN CORPUSCULAR HGB CONC 32.8 G/DL (33.0-37.0); MEAN CORPUSCULAR VOLUME 86.2 FL (81.0-99.0); MEAN PLATELET VOLUME 5.7 FL (7.4-10.4)
[2017-10-04 05:25] LABS: HEMATOCRIT 25.1 % (37-47); RED BLOOD CELL CT 2.91 /CUMM (4.20-5.40)
[2017-10-04 05:44] LABS: PLATELET COUNT 865 /CUMM (130-400)
--- NOTE | 2017-10-04 07:29 | Cons- CRCU ---
Jeannine Whitfield 10/04/17 0728: General Information and HPI Consulting Request Date of Consult: 10/04/17 Requested By: Dr. Pritchard History of Present Illness: Ms. Escobar is a 67 yo f with PMH significant for A.dorina currently on Xarelto for 6 weeks s/p a watchman implant, COPD on home oxygen of 2L NC, chronic GI bleeding and iron deficiency anemia / to AVM malformation s/p balloon enteroscopy 12/07 with cauterization requiring multiple transfusions, HFpEF, HTN, Hypothyroidism, CAD, recent admission to [facility] 07/17/17-07/25/2017 for pseudomonal pneumonia, right arm hematoma and GI bleed secondary to AVM requiring transfusions coming in for evaluation of progressively worsening fatigue and shortness of breath. She reports it has been on going for a couple of days and she was frightened after not being able to get up that it prompted her to come to the ED. She also reports dyspepsia and cough without sputum production. She denies hemoptysis, BRBPR, melena, palpitations, CP. Allergies/Medications Allergies: Coded Allergies: menotropins (HIVES FROM PERGONAL 11/15/15) apixaban (HEMATOMA TO HIP 02/02/17) Home Med List: Albuterol Sulfate 2.5 MG/3 ML (0.083 %) VIAL.NEB 1 Vial INH/DANIKA PRN RESPIRATORY (Reported) Alprazolam 0.5 MG TABLET 1 TAB PO BIDP PRN ANXIETY (Reported) Budesonide (Pulmicort) 0.5 MG/2 ML AMPUL.NEB 1 Vial INH/DANIKA BID COPD ( Reported) Bupropion HCl (Wellbutrin Sr) 100 MG TABLET.ER 1 TAB PO QAM Depression/Anxiety Digoxin (Lanoxin) 125 MCG TABLET 1 TAB PO 1700 a. fib Diltiazem HCl (Diltiazem 24HR ER) 240 MG CAP.ER.24H 1 CAP PO BID HEART ( Reported) Docusate Sodium (Colace) 100 MG CAPSULE 2 CAP PO QPM CONSTIPATION (Reported) Ezetimibe (Zetia) 10 MG TABLET 1 TAB PO QPM CHOLESTEROL (Reported) Ferrous Sulfate 325 MG (65 MG IRON) TABLET 1 TAB PO TID SUPPLEMENT (Reported) Fluticasone/Salmeterol (Advair 250-50 Diskus) 250 MCG-50 MCG/DOSE BLST.W.DEV 1 PUF INH BID BREATHING PROBLEMS (Reported) Furosemide 40 MG TABLET 1 TAB PO BID DIURETIC (Reported) Guaifenesin (Mucinex) 600 MG TAB.ER.12H 1 TAB PO DAILY EXPECTORANT (Reported) Levothyroxine Sodium 100 MCG TABLET 1 TAB PO DAILY AC THYROID (Reported) Losartan Potassium 50 MG TABLET 1 TAB PO DAILY HEART (Reported) Metoprolol Tartrate 25 MG TABLET 25 MG PO BID Atrial fibrilation Montelukast Sodium 10 MG TABLET 1 TAB PO DAILY COPD (Reported) Nitroglycerin (Nitro-Dur) 0.6 MG/HOUR PATCH.TD24 1 PATCH TOP DAILY HEART ( Reported) Nitroglycerin (Nitrostat) 0.4 MG TAB.SUBL 1 TAB SL AD PRN CHEST PAIN ( Reported) 1st sign of attack; may repeat every 5 minutes until relief; if pain persists after 3 tablets in 15 minutes, prompt medical att [place]-3 Fatty Acids/Fish Oil (Fish Oil 1,200 MG Softgel) 360 MG-1,200 MG CAPSULE.DR 1 CAP PO DAILY SUPPLEMENT (Reported) Omeprazole 40 MG CAPSULE.DR 1 CAP PO DAILY GI (Reported) Polyethylene Glycol 3350 (Miralax) 17 GRAM/DOSE POWDER 17 GM PO DAILY constipation mix with water, juice, soda, coffee or tea Pravastatin Sodium (Pravachol) 40 MG TABLET 1 TAB PO QPM CHOLESTEROL ( Reported) Prednisone 10 MG TABLET 1 TAB PO DAILY COPD Date #tabs to take 07/27 3 07/28 2 07/29 2 07/30 1 07/31 1 Rivaroxaban (Xarelto) 20 MG TABLET 1 TAB PO DAILY BLOOD THINNER (Reported) with food Roflumilast (Daliresp) 500 MCG TABLET 1 TAB PO DAILY COPD (Reported) . Sertraline HCl (Zoloft) 100 MG TABLET 2 TAB PO DAILY DEPRESSION (Reported) Tiotropium Hoven (Spiriva) 18 MCG CAP.W.DEV 1 CAP INH DAILY copd Reason to Stop at ADM:[facility] NEBS ORDERS Vitamin E (Dl,Tocopheryl Acet) (Vitamin E) 400 UNIT CAPSULE 1 TAB PO DAILY SUPPLEMENT (Reported) Current Medications: Current Medications Sig/Lana Start time Last Medication Dose Route Stop Time Status Admin Acetaminophen 650 MG Q4P PRN 10/03 2129 AC PO Albuterol Sulfate 2.5 ML TID 10/03 2200 CAN INH Albuterol Sulfate 3 ML TID 10/03 2200 AC 10/04 INH 0817 Albuterol Sulfate 2.5 ML Q4 HRS NEEDED PRN 10/03 2045 DC INH Alprazolam 0.5 MG BID PRN 10/03 2200 AC 10/04 PO 10/10 2159 0918 Bupropion HCl 100 MG QAM 10/04 1000 AC 10/04 PO 0912 Ceftazidime 1,000 MG IQ8 10/04 0000 DC 10/04 IV 0910 Ceftriaxone Sodium 0 .STK-MED ONE 10/03 1738 DC .ROUTE Ceftriaxone Sodium 1,000 MG ONCE ONE 10/03 1700 DC 10/03 IV 10/03 1701 1737 Dextrose/Water 1,000 ML Q13H 10/04 0900 AC 10/04 IV 1017 Digoxin 0.125 MG 1700 10/04 1700 AC PO Diltiazem HCl 240 MG BID 10/03 2200 AC 10/04 PO 0913 Docusate Sodium 200 MG QPM 10/03 2200 AC 10/03 PO 2205 Ezetimibe 10 MG QPM 10/03 2200 AC 10/03 PO 2205 Ferrous Sulfate 325 MG BID 10/04 1006 DC PO Ferrous Sulfate 325 MG TID 10/03 2200 AC 10/04 PO 1015 Furosemide 40 MG BID 10/03 2200 AC 10/04 PO 0911 Guaifenesin 600 MG DAILY 10/04 1000 AC 10/04 PO 0912 Hydromorphone HCl 2 MG Q6P PRN 10/03 2345 AC IV Levothyroxine Sodium 0.1 MG DAILY AC 10/04 0700 AC 10/04 PO 0603 Losartan Potassium 50 MG DAILY 10/04 1000 AC PO Melatonin 5 MG .STK-MED ONE 10/04 0013 DC PO 10/04 0014 Melatonin 5 MG AT BEDTIME 10/03 2345 AC 10/04 PO 0014 Methylprednisolone 40 MG Q12 10/04 2200 AC IV Methylprednisolone 40 MG Q8 10/04 0600 DC 10/04 IV 0603 Methylprednisolone 125 MG ONCE ONE 10/03 2045 DC 10/03 IV 10/03 204 2243 Montelukast Sodium 10 MG DAILY 10/04 1000 AC 10/04 PO 0913 Nitroglycerin 0.6 MG DAILY 10/04 1000 AC TOP Oxycodone/ 1 TAB Q6P PRN 10/03 2130 DC 10/03 Acetaminophen PO 2242 Pantoprazole Sodium 40 MG DAILY 10/04 1000 AC 10/04 IV 0910 Pantoprazole Sodium 40 MG BID 10/03 2200 DC 10/03 IV 2207 Potassium Chloride 40 MEQ ONCE ONE 10/04 0815 DC 10/04 PO 10/04 0816 0911 Potassium Chloride 10 MEQ Q1H 10/04 0715 DC IV 10/04 0816 Pravastatin Sodium 40 MG QPM 10/03 2200 AC 10/03 PO 2243 Sertraline HCl 200 MG DAILY 10/04 1000 AC 10/04 PO 0911 Tiotropium Hoven 1 PUF DAILY 10/04 1000 AC 10/04 INH 0914 Review of Systems Review of Systems Constitutional: Reports: see HPI. Past History Travel History Traveled to [place] past 21 day No Medical History Neurological: NONE EENT: NONE Cardiovascular: AFIB, CAD, diastolic CHF, hypertension, hyperlipidemia, myocardial infarction (in 1995) Respiratory: COPD (on 2L @home), pneumonia (pseudomonas) Gastrointestinal: GERD, irritable bowel syndrome, 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 diverticulosis Hepatic: NONE Renal: NONE Musculoskeletal: fibromyalgia, osteoarthritis, spinal stenosis Psychiatric: anxiety, depression, PTSD Endocrine: hypothyroidism Blood Disorders: anemia (iron deficiency) Cancer(s): SKIN [employer]/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 Home Who Do You Live With? child Services at Home: Oxygen Primary Language: [place] Smoking Status: Former Smoker ETOH Use: denies use Illicit Drug Use: denies illicit drug use Functional Ability ADLs Independent: dressing, eating, toileting, bathing. Ambulation: independent IADLs Independent: shopping, housework, finances, food prep, telephone, transportation , medication admin. Exam & Diagnostic Data Last 24 Hrs of Vital Signs/I&O Vital Signs Date Time Temp Pulse Resp B/P B/P Pulse O2 O2 Flow FiO2 Mean Ox Delivery Rate 10/04 0925 84 102/64 10/04 0819 95 Nasal 2.0L Cannula 10/04 0400 97.4 78 20 140/70 99 Nasal 2.0L Cannula 10/04 0400 99 Nasal 2.0L Cannula 10/04 0000 99 Nasal 2.0L Cannula 10/04 0000 97.4 85 22 132/82 99 Nasal 2.0L Cannula 10/03 2328 98 Nasal 2.0L Cannula 10/03 2140 Nasal 2.0L Cannula 10/03 2028 99.3 92 16 142/76 99 Nasal 3.0L Cannula 10/03 1939 97.4 115 25 128/76 98 Nasal 2.0L Cannula 10/03 1820 105 28 129/62 100 Nasal 2.0L Cannula 10/03 1746 100 Nasal 2.0L Cannula 10/03 1733 99.2 120 22 141/69 100 Nasal 2.0L Cannula 10/03 1631 98.2 111 22 145/76 100 Nasal 2.0L Cannula 10/03 1405 97.9 116 18 116/66 97 Nasal 2.0L Cannula Intake & Output 10/04 1600 10/04 0800 10/04 0000 Intake Total 350 350 Output Total 600 Balance -250 350 Intake, Blood 350 350 Product Number 1 Bowel Movements Output, Urine 600 Patient 115 lb Weight Physical Exam General Appearance: mild distress Head: atraumatic, normal appearance Eyes: Bilateral: normal appearance, PERRL, EOMI. Ears, Nose, Throat: normal pharynx, normal ENT inspection, hearing grossly normal Neck: normal inspection, supple, full range of motion Respiratory: BL rhonchi and wheezing Cardiovascular: regular rate/rhythm Gastrointestinal: normal bowel sounds, soft, non-tender Extremities: no edema Last 48 Hrs of Labs/Wan: Laboratory Tests 10/04/17 1105: Methadone Screen Pending, Barbiturate Screen Pending, Ur Phencyclidine Scrn Pending, Amphetamines Screen Pending, U Benzodiazepines Scrn Pending, Urine Cocaine Screen Pending, Urine Cannabis Screen Pending, Urine Color Pending, Urine Clarity Pending, Urine pH Pending, Ur Specific [place] Pending, Urine Protein Pending, Urine Ketones Pending, Urine Nitrite Pending, Urine Bilirubin Pending, Urine Urobilinogen Pending, Ur Leukocyte Esterase Pending, Ur Microscopic Pending, Urine Hemoglobin Pending, Urine Glucose Pending 10/04/17 0500: Haptoglobin Pending 10/04/17 0400: Anion Gap 14, Estimated GFR > 60, Glucose 112 H, Calcium 9.3, Phosphorus 3.4, Magnesium 1.9, Iron 279 H, TIBC 358, Ferritin 20.0, Total Bilirubin 0.6, AST 19 , ALT 31, Lactate Dehydrogenase 428, Troponin I 0.05, Albumin 3.6, CBC w Diff MAN DIFF ORDERED, RBC 2.91 L, MCV 86.2, MCH 28.3, RDW 18.0 H, MPV 5.7 L, Gran % 96.4 H, Lymphocytes % 3.4 L, Monocytes % 0.2 L, Eosinophils % 0, Basophils % 0, Absolute Granulocytes 16.4 H, Absolute Lymphocytes 0.6 L, Absolute Monocytes 0 L, Absolute Eosinophils 0, Absolute Basophils 0, Platelet Estimate INCREASED, Polychromasia 1+, Hypochromic-Microcytic 2+, Poikilocytosis 2+, Anisocytosis 2+, Ovalocytes 1+, Elliptocytes , PUBS MCHC 32.8 L, Retic Count 3.10 H 10/04/17 0300: Troponin I Cancelled 10/03/17 2200: Troponin I Cancelled 10/03/17 1600: Anion Gap 16, Estimated GFR > 60, BUN/Creatinine Ratio 28.6 H, Glucose 106 H, Calcium 8.9, Total Bilirubin 0.1 L, AST 20, ALT 36, Alkaline Phosphatase 60, Troponin I 0.05, Rpm-R-Hknifotmafs Pept 3840 H, Total Protein 5.7 L, Albumin 3.7, Globulin 2.0, Albumin/Globulin Ratio 1.9, PT 35.2 H, INR 3.39 H, APTT 40 H, CBC w Diff NO MAN DIFF REQ, RBC 1.91 L, MCV 88.5, MCH 28.2, RDW 18.4 H, MPV 5.6 L, Gran % 94.4 H, Lymphocytes % 2.9 L, Monocytes % 2.5, Eosinophils % 0.2 , Basophils % 0, Absolute Granulocytes 16.2 H, Absolute Lymphocytes 0.5 L, Absolute Monocytes 0.4, Absolute Eosinophils 0, Absolute Basophils 0, PUBS MCHC 31.8 L, Digoxin 1.4 Assessment/Plan Impression/Plan: Ms. Escobar is a 67 yo f with PMH significant for Ayovany currently on Xarelto for 6 weeks s/p a watchman implant, COPD on home oxygen of 2L NC, chronic GI bleeding and iron deficiency anemia 2/2 to AVM malformation s/p balloon enteroscopy with cauterization who presents with worsening SOB and fatigue Resp: Acute hypoxic respiratory failure most likely 2/2 COPD vs PNA She was given IV Ceftazadime due to her history of Pseudomonas PNA. She had leukocytosis without bandemia. CT chest demonstrated waxing and waning of the bilateral airspace disease, pneumonia and emphysematous changes * Repeat CXR in a.m. * Continue IV Methyprednisolone, transition to PO in a.m * Follow off antibiotics ID: She was given IV Ceftazadime due to her history of Pseudomonas PNA. She had leukocytosis without bandemia. CT chest suspicious for PNA * Discontinue Ceftazidime and watch off antibiotics CVS: Radha currently on Xarelto for 6 weeks s/p a watchman implant * Held Xarelto for GI entersocopy * Cardiology recommendations appreciated Heme: Chronic anemia s/p 2 prbcs Patient had an enteroscopy done today that showed no active bleeding. * Monitor H&H, goal > 8, transfuse if necessary * Patient scheduled for balloon enteroscopy today * GI recommendations appreciated Metabolic: Hypokalemia * Monitor and replete potassium Nutrition - consulted DVT ppx: ALPS. Xarelto on hold for GI Consult Acknowledgment - Thank you for your consult request. Roscoe Whitney MD 10/04/17 0950: Assessment/Plan Other Findings/Comments: Impression 67 year old woman * acute blood loss anemia likely secondary to AVM's * a.fib s/p Watchman device * possible exacerbation of COPD * waxing/waning airspace disease, better on right, worse on left - hx of pseudomonas infection Plan Respiratory -TRC/Nebs -reduce solumedrol to 40mg iv q12h ID -given recurrent pseudomnal disease - occasionally representing acute infections vs colonization, her imaging may represent excess fluid, no fever, wbc can be stress/prednisone use -dc ceftazadime and observe without abx for the time being, can recheck a cxr if condition worsens or early next week CVS -f/u cardiology recs -cont xarelto despite anemia given recent Watchman device (should be on a/c for 6 wks post procedure) Heme -f/u GI recommendations -NPO, plan for endoscopy -s/p transfusion - improved hemoglobin -check hemolysis profile -has seen hematology as outpatient Metabolic -ins/outs -monitor electrolytes Alimentary -NPO Neuro -no acute issues DVT prophylaxis at all times - Xarelto - continue to hold for GI procedure then will inform Dr. Naranjo to see if needs to be restarted if no obvious/active bleeding TTS 40 min Consult Acknowledgment - Thank you for your consult request.
[2017-10-04 08:00] VITALS: BP 138/70
--- NOTE | 2017-10-04 10:20 | Cons- Gastroenterology ---
General Information and HPI Consulting Request Date of Consult: 10/04/17 Requested By: Roscoe Whitney MD Reason for Consult: Anemia, guaiac positive stool. Source of Information: patient, old records Exam Limitations: no limitations History of Present Illness: Ms. 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 She has a history of small bowel AVMs seen on a pill cam in 2010 and she ultimately underwent an double balloon enteroscopy in November and January of this year during which time approximately 5 AVMs were cauterized (done on the antegrade examination in November). She had been doing reasonably well on supplemental iron since then. She takes omeprazole for heartburn which in general controls that symptom well, but she does note some worsening heartburn and dyspeptic symptoms a few weeks ago that she did not take additional antacids for and she notes that it resolved on its own. She has been without any dysphagia or vomiting. She also denies any recent otc nsaid use stating that she just uses tylenol for her joint pains and headaches without much benefit. She has been on oral iron up until about a week ago when her supply ran out and she has not yet restarted it. She notes the iron turns her stool black and it gives her constipation that responds to stool softeners. She has noted scant amounts of brb on the toilet paper on occassion, but nothing recent and she has not passed any blood clots in her stool. She also has not noted any foul smelling sticky stool Allergies/Medications Allergies: Coded Allergies: menotropins (HIVES FROM PERGONAL 11/15/15) apixaban (HEMATOMA TO HIP 02/02/17) Home Med List: Albuterol Sulfate 2.5 MG/3 ML (0.083 %) VIAL.NEB 1 Vial INH/DANIKA PRN RESPIRATORY (Reported) Alprazolam 0.5 MG TABLET 1 TAB PO BIDP PRN ANXIETY (Reported) Budesonide (Pulmicort) 0.5 MG/2 ML AMPUL.NEB 1 Vial INH/DANIKA BID COPD ( Reported) Bupropion HCl (Wellbutrin Sr) 100 MG TABLET.ER 1 TAB PO QAM Depression/Anxiety Digoxin (Lanoxin) 125 MCG TABLET 1 TAB PO 1700 a. fib Diltiazem HCl (Diltiazem 24HR ER) 240 MG CAP.ER.24H 1 CAP PO BID HEART ( Reported) Docusate Sodium (Colace) 100 MG CAPSULE 2 CAP PO QPM CONSTIPATION (Reported) Ezetimibe (Zetia) 10 MG TABLET 1 TAB PO QPM CHOLESTEROL (Reported) Ferrous Sulfate 325 MG (65 MG IRON) TABLET 1 TAB PO TID SUPPLEMENT (Reported) Fluticasone/Salmeterol (Advair 250-50 Diskus) 250 MCG-50 MCG/DOSE BLST.W.DEV 1 PUF INH BID BREATHING PROBLEMS (Reported) Furosemide 40 MG TABLET 1 TAB PO BID DIURETIC (Reported) Guaifenesin (Mucinex) 600 MG TAB.ER.12H 1 TAB PO DAILY EXPECTORANT (Reported) Levothyroxine Sodium 100 MCG TABLET 1 TAB PO DAILY AC THYROID (Reported) Losartan Potassium 50 MG TABLET 1 TAB PO DAILY HEART (Reported) Metoprolol Tartrate 25 MG TABLET 25 MG PO BID Atrial fibrilation Montelukast Sodium 10 MG TABLET 1 TAB PO DAILY COPD (Reported) Nitroglycerin (Nitro-Dur) 0.6 MG/HOUR PATCH.TD24 1 PATCH TOP DAILY HEART ( Reported) Nitroglycerin (Nitrostat) 0.4 MG TAB.SUBL 1 TAB SL AD PRN CHEST PAIN ( Reported) 1st sign of attack; may repeat every 5 minutes until relief; if pain persists after 3 tablets in 15 minutes, prompt medical att [place]-3 Fatty Acids/Fish Oil (Fish Oil 1,200 MG Softgel) 360 MG-1,200 MG CAPSULE.DR 1 CAP PO DAILY SUPPLEMENT (Reported) Omeprazole 40 MG CAPSULE.DR 1 CAP PO DAILY GI (Reported) Polyethylene Glycol 3350 (Miralax) 17 GRAM/DOSE POWDER 17 GM PO DAILY constipation mix with water, juice, soda, coffee or tea Pravastatin Sodium (Pravachol) 40 MG TABLET 1 TAB PO QPM CHOLESTEROL ( Reported) Prednisone 10 MG TABLET 1 TAB PO DAILY COPD Date #tabs to take 07/27 3 07/28 2 07/29 2 07/30 1 07/31 1 Rivaroxaban (Xarelto) 20 MG TABLET 1 TAB PO DAILY BLOOD THINNER (Reported) with food Roflumilast (Daliresp) 500 MCG TABLET 1 TAB PO DAILY COPD (Reported) . Sertraline HCl (Zoloft) 100 MG TABLET 2 TAB PO DAILY DEPRESSION (Reported) Tiotropium [place] (Spiriva) 18 MCG CAP.W.DEV 1 CAP INH DAILY copd Reason to Stop at ADM:[facility] NEBS ORDERS Vitamin E (Dl,Tocopheryl Acet) (Vitamin E) 400 UNIT CAPSULE 1 TAB PO DAILY SUPPLEMENT (Reported) Current Medications: Current Medications Sig/Lana Start time Last Medication Dose Route Stop Time Status Admin Acetaminophen 650 MG Q4P PRN 10/03 2130 AC PO Albuterol Sulfate 2.5 ML TID 10/03 220 CAN INH Albuterol Sulfate 3 ML TID 10/03 2200 AC 10/04 INH 0817 Albuterol Sulfate 2.5 ML Q4 HRS NEEDED PRN 10/03 2045 DC INH Alprazolam 0.5 MG BID PRN 10/03 2200 AC 10/04 PO 10/10 2159 0918 Bupropion HCl 100 MG QAM 10/04 1000 AC 10/04 PO 09 Ceftazidime 1,000 MG IQ8 10/04 0000 DC 10/04 IV 0910 Ceftriaxone Sodium 0 .STK-MED ONE 10/03 1738 DC .ROUTE Ceftriaxone Sodium 1,000 MG ONCE ONE 10/03 1700 DC 10/03 IV 10/03 1701 1737 Dextrose/Water 1,000 ML Q13H 10/04 0900 AC IV Digoxin 0.125 MG 1700 10/04 1700 AC PO Diltiazem HCl 240 MG BID 10/03 2200 AC 10/04 PO 0913 Docusate Sodium 200 MG QPM 10/03 2200 AC 10/03 PO 220 Ezetimibe 10 MG QPM 10/03 2200 AC 10/03 PO 2205 Ferrous Sulfate 325 MG BID 10/04 1006 DCr PO Ferrous Sulfate 325 MG TID 10/03 2200 AC 10/03 PO 220 Furosemide 40 MG BID 10/03 220 AC 10/04 PO 0911 Guaifenesin 600 MG DAILY 10/04 1000 AC 10/04 PO 0912 Hydromorphone HCl 2 MG Q6P PRN 10/03 2345 AC IV Levothyroxine Sodium 0.1 MG DAILY AC 10/04 0700 AC 10/04 PO 0603 Losartan Potassium 50 MG DAILY 10/04 1000 AC PO Melatonin 5 MG .STK-MED ONE 10/04 0013 DC PO 10/04 0014 Melatonin 5 MG AT BEDTIME 10/03 2345 AC 10/04 PO 0014 Methylprednisolone 40 MG Q12 10/04 2200 UNVr IV Methylprednisolone 40 MG Q8 10/04 0600 DC 10/04 IV 0603 Methylprednisolone 125 MG ONCE ONE 10/03 2045 DC 10/03 IV 10/03 2046 2243 Montelukast Sodium 10 MG DAILY 10/04 1000 AC 10/04 PO 0913 Nitroglycerin 0.6 MG DAILY 10/04 1000 AC TOP Oxycodone/ 1 TAB Q6P PRN 10/03 2130 DC 10/03 Acetaminophen PO 2242 Pantoprazole Sodium 40 MG DAILY 10/04 1000 AC 10/04 IV 0910 Pantoprazole Sodium 40 MG BID 10/03 2200 DC 10/03 IV 2207 Potassium Chloride 40 MEQ ONCE ONE 10/04 0815 DC 10/04 PO 10/04 0816 0911 Potassium Chloride 10 MEQ Q1H 10/04 0715 DC IV 10/04 0816 Pravastatin Sodium 40 MG QPM 10/03 2200 AC 10/03 PO 2243 Sertraline HCl 200 MG DAILY 10/04 1000 AC 10/04 PO 0911 Tiotropium Mays 1 PUF DAILY 10/04 1000 AC 10/04 INH 0914 Past History Travel History Traveled to [place] past 21 day No Medical History Neurological: NONE EENT: NONE Cardiovascular: AFIB, CAD, diastolic CHF, hypertension, hyperlipidemia, myocardial infarction (in 1995) Respiratory: COPD (on 2L @home), pneumonia (pseudomonas) Gastrointestinal: GERD, irritable bowel syndrome, 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 diverticulosis Hepatic: NONE Renal: NONE Musculoskeletal: fibromyalgia, osteoarthritis, spinal stenosis Psychiatric: anxiety, depression, PTSD Endocrine: hypothyroidism Blood Disorders: anemia (iron deficiency) Cancer(s): 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 Home Who Do You Live With? child Services at Home: Oxygen Primary Language: Dutch Smoking Status: Former Smoker ETOH Use: denies use Illicit Drug Use: denies illicit drug use Functional Ability ADLs Independent: dressing, eating, toileting, bathing. Ambulation: independent IADLs Independent: shopping, housework, finances, food prep, telephone, transportation , medication admin. Exam & Diagnostic Data Vital Signs and I&O Vital Signs Date Time Temp Pulse Resp B/P B/P Pulse O2 O2 Flow FiO2 Mean Ox Delivery Rate 10/04 924 84 102/64 10/04 0819 95 Nasal 2.0L Cannula 10/04 399 97.4 78 20 140/70 99 Nasal 2.0L Cannula 10/04 399 99 Nasal 2.0L Cannula 10/04 0000 99 Nasal 2.0L Cannula 10/04 0000 97.4 85 22 132/82 99 Nasal 2.0L Cannula 10/038 98 Nasal 2.0L Cannula 10/03 2140 Nasal 2.0L Cannula 10/03 2028 99.3 92 16 142/76 99 Nasal 3.0L Cannula 10/03 1939 97.4 115 25 128/76 98 Nasal 2.0L Cannula 10/03 1820 105 28 129/62 100 Nasal 2.0L Cannula 10/03 1746 100 Nasal 2.0L Cannula 10/03 1733 99.2 120 22 141/69 100 Nasal 2.0L Cannula 10/03 1631 98.2 111 22 145/76 100 Nasal 2.0L Cannula 10/03 1405 97.9 116 18 116/66 97 Nasal 2.0L Cannula Intake & Output 10/04 1600 10/040 10/03 1600 10/03 04010/02 1600 10/02 0400 Intake Total 350 350 Output Total 600 Balance -250 350 Intake, Blood 350 350 Product Number 1 Bowel Movements Output, Urine 600 Patient 115 lb 115 lb Weight Weight Reported by Patient Measurement Method Results Pertinent Lab Results: Laboratory Tests 10/04 10/04 10/03 0400 0300 2200 Chemistry Sodium (137 - 145 mmol/L) 136 L Potassium (3.5 - 5.1 mmol/L) 3.5 Chloride (98 - 107 mmol/L) 96 L Carbon Dioxide (22 - 30 mmol/L) 26 Anion Gap (5 - 16) 14 BUN (7 - 17 mg/dL) 16 Creatinine (0.5 - 1.0 mg/dL) 0.6 Estimated GFR (>60 ml/min) > 60 Glucose (65 - 99 mg/dL) 112 H Calcium (8.4 - 10.2 mg/dL) 9.3 Phosphorus (2.5 - 4.5 mg/dL) 3.4 Magnesium (1.6 - 2.3 mg/dL) 1.9 Total Bilirubin (0.2 - 1.3 mg/dL) 0.6 AST (14 - 36 U/L) 19 ALT (9 - 52 U/L) 31 Troponin I (< 0.11 ng/ml) 0.05 Cancelled Cancelled Albumin (3.5 - 5.0 g/dL) 3.6 Hematology CBC w Diff NO MAN DIFF REQ WBC (4.8 - 10.8 /CUMM) 17.0 H RBC (4.20 - 5.40 /CUMM) 2.91 L Hgb (12.0 - 16.0 G/DL) 8.2 L Hct (37 - 47 %) 25.1 L MCV (81.0 - 99.0 FL) 86.2 MCH (27.0 - 31.0 PG) 28.3 RDW (11.5 - 14.5 %) 18.0 H Plt Count (130 - 400 /CUMM) 865 H MPV (7.4 - 10.4 FL) 5.7 L Gran % (42.2 - 75.2 %) 96.4 H Lymphocytes % (20.5 - 51.1 %) 3.4 L Monocytes % (1.7 - 9.3 %) 0.2 L Eosinophils % (0 - 5 %) 0 Basophils % (0.0 - 2.0 %) 0 Absolute Granulocytes (1.4 - 6.5 /CUMM) 16.4 H Absolute Lymphocytes (1.2 - 3.4 /CUMM) 0.6 L Absolute Monocytes (0.10 - 0.60 /CUMM) 0 L Absolute Eosinophils (0.0 - 0.7 /CUMM) 0 Absolute Basophils (0.0 - 0.2 /CUMM) 0 PUBS MCHC (33.0 - 37.0 G/DL) 32.8 L 10/03 1600 Chemistry Sodium (137 - 145 mmol/L) 138 Potassium (3.5 - 5.1 mmol/L) 3.5 Chloride (98 - 107 mmol/L) 93 L Carbon Dioxide (22 - 30 mmol/L) 29 Anion Gap (5 - 16) 16 BUN (7 - 17 mg/dL) 20 H Creatinine (0.5 - 1.0 mg/dL) 0.7 Estimated GFR (>60 ml/min) > 60 BUN/Creatinine Ratio (7 - 25 %) 28.6 H Glucose (65 - 99 mg/dL) 106 H Calcium (8.4 - 10.2 mg/dL) 8.9 Total Bilirubin (0.2 - 1.3 mg/dL) 0.1 L AST (14 - 36 U/L) 20 ALT (9 - 52 U/L) 36 Alkaline Phosphatase (<127 U/L) 60 Troponin I (< 0.11 ng/ml) 0.05 [id number] Pept (<125 pg/mL) 3840 H Total Protein (6.3 - 8.2 g/dL) 5.7 L Albumin (3.5 - 5.0 g/dL) 3.7 Globulin (1.9 - 4.2 gm/dL) 2.0 Albumin/Globulin Ratio (1.1 - 2.2 %) 1.9 Coagulation PT (9.4 - 12.5 SEC) 35.2 H INR (0.90 - 1.19) 3.39 H APTT (25 - 37 SEC) 40 H Hematology CBC w Diff NO MAN DIFF REQ WBC (4.8 - 10.8 /CUMM) 17.1 H RBC (4.20 - 5.40 /CUMM) 1.91 L Hgb (12.0 - 16.0 G/DL) 5.4 *L Hct (37 - 47 %) 16.9 *L MCV (81.0 - 99.0 FL) 88.5 MCH (27.0 - 31.0 PG) 28.2 RDW (11.5 - 14.5 %) 18.4 H Plt Count (130 - 400 /CUMM) 981 H MPV (7.4 - 10.4 FL) 5.6 L Gran % (42.2 - 75.2 %) 94.4 H Lymphocytes % (20.5 - 51.1 %) 2.9 L Monocytes % (1.7 - 9.3 %) 2.5 Eosinophils % (0 - 5 %) 0.2 Basophils % (0.0 - 2.0 %) 0 Absolute Granulocytes (1.4 - 6.5 /CUMM) 16.2 H Absolute Lymphocytes (1.2 - 3.4 /CUMM) 0.5 L Absolute Monocytes (0.10 - 0.60 /CUMM) 0.4 Absolute Eosinophils (0.0 - 0.7 /CUMM) 0 Absolute Basophils (0.0 - 0.2 /CUMM) 0 PUBS MCHC (33.0 - 37.0 G/DL) 31.8 L Toxicology Digoxin (0.8 - 2.0 ng/mL) 1.4 Assessment/Plan Assessment/Recommendations: Assessment: Consult Acknowledgment - Thank you for your consult request.
[2017-10-04 12:00] VITALS: BP 140/60
--- NOTE | 2017-10-04 14:44 | Proc Note Endoscopy ---
Endoscopy Procedure Medical History: unchanged (see [facility]) Mental Status: alert/oriented Heart/Lung Eval Prior to Sedation: within normal limits Candidate for Sedation? Yes Procedure Date: 10/04/17 Procedure Type: push enteroscopy Pipe Connector: Bull Orlando MD ASA Classification: III Indications: Anemia, guaiac positive stool, history of small bowel AVMs s/p double balloon enterosocopy 12/07 with APC performed. Instrument: pediatric colonoscope Meds Received: MAC Patient's Tolerance: good Complications: none Extent Reached: proximal/mid jejunum Procedure: After getting written informed consent the patient was placed in the left lateral decubitus position with pulse oximetry, cardiac monitoring, and supplemental oxygen given. A bite block was inserted and IV sedation was given until the desired effect was achieved. A high definition upper Olympus pediatric colonoscope was then inserted into the mouth and advanced to the proximal/mid jejunum with little difficulty. Retroflexed views and photodocumentation was obtained. Findings: Esophagus: The esophageal mucosa was grossly normal appearance and there is a normal appearing Z line at 40 cm from the incisors. Stomach: The gastric mucosa was grossly normal appearance. There were no ulcers , erosions, or masses appreciated. Distention and peristalsis of stomach appeared normal. Retroflexed views were normal did not reveal significant hiatal hernia. There was an isolated small 3 mm sessile polyp in the fundus consistent in appearance with a fundic gland polyp which was left in place. Duodenum: The duodenal bulb, sweep, and folds were grossly normal in appearance. Jejunum: The visualized proximal jejunal mucosa was grossly normal in appearance. There was bile appreciated throughout the visualized portion of the jejunum. Of note, due to looping in the stomach only a short portion of the jejunum was able to visualized. Impression: 1. Fundic gland polyp. 2. Otherwise grossly normal showed thoracic be with no active bleeding or source of anemia appreciated to the proximal/mid jejunum. Recommendations: 1. Advance diet as tolerated. 2. Resume oral PPI. 3. Avoid NSAIDs. 4. There are no absolute GI contraindication to resuming anticoagulation if medically indicated. 5. Follow daily CBCs and transfuse as needed to maintain hemoglobin greater than 8 or as per cardiology recommendations. 6. Restart oral iron supplementation. 7. If she has no active bleeding consideration should be given to discharge the patient home later today with close outpatient follow-up to follow her hemoglobin while she continues on Xarelto.
[2017-10-04 16:00] VITALS: BP 129/58
--- NOTE | 2017-10-04 19:21 | Event Note ---
Event Note Event Note: Spoke to Dr. Naranjo. Would like her to be transfused with one more unit of PRBC and to start her Xaralto from tommorrow 08/11/18. He would like her to remain ICU for now as well.
--- NOTE | 2017-10-04 20:48 | Cons- Cardiology ---
General Information and HPI Consulting Request Date of Consult: 10/04/17 Requested By: Roscoe Whitney MD History of Present Illness: Cynthia is a 67 year old female with history of hypertension, dyslipidemia, tobacco abuse, and coronary artery disease, status post inferior wall myocardial infarction which she experienced in 1995. This patient also has severe emphysematous COPD. Finally, this patient has atrial fibrillation. Cynthia has noted severe weakness and fatigue with shortness and lightheadedness. She also had some mild chest discomfort. In consideration of the above shewas directed to the ER where she was found to be profoundly anemic. The patient has not noticed any gross bleeding but was guaiac positive. It should be noted that this patient is status post a Watchman atrial occluder device placed about one month ago. This device was necessary to allow the patient to be off anticoagulation without the risk of stroke, but, the patient continues to need antcoagulation for six weeks post placement of the device while it endothelializes. As such, this patient is on Xarelto. The device was needed due to about 5 episodes of prior bleeding including GI bleeds, hemoptysis and psoas muscle bleed. It should also be noted that this patient has had multiple recent admissions for shortness of breath and pneumonia. In consideration of Cynthia's diagnosis of atrial fibrillation rate control with chronic anticoagulation was initially tried. Due to multiple issues with bleeding we subsequently cardioverted this patient and placed her on Tikosyn to maintain a sinus rhythm and avoid the need for anticoagulation. It should be noted that this patient also tends to feel much improved when in a sinus rhythm. During a recent hospital we needed to discontinue Tykosyn due to its ineffectiveness in maintaining a sinus rhythm, its proarrhythmia with episodes of NSVT on the medication and its incompatability with Cipro that was needed for treatment of the patient's infection. Cynthia has a 90% ostial PDA on her recent cardiac catheterization. This is a small vessel that is not amenable to PCI. Her other coronaries are patent. Finally, this patient went from [facility] where the above was done to [facility] where she developed a spontaneous right psoas bleed that occured off anticoagulation. She has also had issues with GI bleeding. It should be noted that this patient underwent a recent cardiac catheterization which showed patent coronaries with a normal EF. At [facility], during an exacerbation of her COPD she did demonstrate mild decompensated CHF and a small rise in cardiac enzymes consistent with NSTEMI. Her episodes of respiratory distress are frequent. It may be recalled that on a prior but recent hospital visit she was found unresponsive with hypertcapneic respiratory failure. Cynthia did have a recent stress test that showed a small fixed inferior defect without ischemia that is not unexpected in the setting of her known 90% occluded PDA. Her EF was normal at 72%. At baseline, Cynthia does have shortness of breath which has been attributed to her COPD. This patient has also had some previous bradycardia which has improved to some degree after stopping metoprolol. In absolute terms, this patient will become winded going up 12 steps or if she goes up a hill. In the past, the patient also reported some mild exertional chest pressure that occurs approximately 2 times a month. The patient's cardiac cath showed a short normal left main. The LAD was a large vessel that wrapped around the apex and supplied scant [id number] transseptal collaterals. The left circumflex was a large vessel with luminal irregularities. The right coronary artery was dominant with a 50% proximal stenosis and a 90% ostial stenosis of the PDA. The RV marginal branch initially had an 80% to 90% stenosis which was reduced post angioplasty to a 70% non flow- limiting stenosis. The RV marginal branch was a large vessel that did appear to go to the inferior wall. The PDA on the other hand was a small vessel, although dominant in distribution. It should be noted that a previous cardiac catheterization was performed in [address] Tripathi, who also saw evidence of an occluded PDA. Allergies/Medications Allergies: Coded Allergies: menotropins (HIVES FROM PERGONAL 11/15/15) apixaban (HEMATOMA TO HIP 02/02/17) Home Med List: Albuterol Sulfate 2.5 MG/3 ML (0.083 %) VIAL.NEB 1 Vial INH/DANIKA PRN RESPIRATORY (Reported) Alprazolam 0.5 MG TABLET 1 TAB PO BIDP PRN ANXIETY (Reported) Budesonide (Pulmicort) 0.5 MG/2 ML AMPUL.NEB 1 Vial INH/DANIKA BID COPD ( Reported) Bupropion HCl (Wellbutrin Sr) 100 MG TABLET.ER 1 TAB PO QAM Depression/Anxiety Digoxin (Lanoxin) 125 MCG TABLET 1 TAB PO 1700 a. fib Diltiazem HCl (Diltiazem 24HR ER) 240 MG CAP.ER.24H 1 CAP PO BID HEART ( Reported) Docusate Sodium (Colace) 100 MG CAPSULE 2 CAP PO QPM CONSTIPATION (Reported) Ezetimibe (Zetia) 10 MG TABLET 1 TAB PO QPM CHOLESTEROL (Reported) Ferrous Sulfate 325 MG (65 MG IRON) TABLET 1 TAB PO TID SUPPLEMENT (Reported) Fluticasone/Salmeterol (Advair 250-50 Diskus) 250 MCG-50 MCG/DOSE BLST.W.DEV 1 PUF INH BID BREATHING PROBLEMS (Reported) Furosemide 40 MG TABLET 1 TAB PO BID DIURETIC (Reported) Guaifenesin (Mucinex) 600 MG TAB.ER.12H 1 TAB PO DAILY EXPECTORANT (Reported) Levothyroxine Sodium 100 MCG TABLET 1 TAB PO DAILY AC THYROID (Reported) Losartan Potassium 50 MG TABLET 1 TAB PO DAILY HEART (Reported) Metoprolol Tartrate 25 MG TABLET 25 MG PO BID Atrial fibrilation Montelukast Sodium 10 MG TABLET 1 TAB PO DAILY COPD (Reported) Nitroglycerin (Nitro-Dur) 0.6 MG/HOUR PATCH.TD24 1 PATCH TOP DAILY HEART ( Reported) Nitroglycerin (Nitrostat) 0.4 MG TAB.SUBL 1 TAB SL AD PRN CHEST PAIN ( Reported) 1st sign of attack; may repeat every 5 minutes until relief; if pain persists after 3 tablets in 15 minutes, prompt medical att [place]-3 Fatty Acids/Fish Oil (Fish Oil 1,200 MG Softgel) 360 MG-1,200 MG CAPSULE.DR 1 CAP PO DAILY SUPPLEMENT (Reported) Omeprazole 40 MG CAPSULE.DR 1 CAP PO DAILY GI (Reported) Polyethylene Glycol 3350 (Miralax) 17 GRAM/DOSE POWDER 17 GM PO DAILY constipation mix with water, juice, soda, coffee or tea Pravastatin Sodium (Pravachol) 40 MG TABLET 1 TAB PO QPM CHOLESTEROL ( Reported) Prednisone 10 MG TABLET 1 TAB PO DAILY COPD Date #tabs to take 07/27 3 07/28 2 07/29 2 07/30 1 07/31 1 Rivaroxaban (Xarelto) 20 MG TABLET 1 TAB PO DAILY BLOOD THINNER (Reported) with food Roflumilast (Daliresp) 500 MCG TABLET 1 TAB PO DAILY COPD (Reported) . 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 diverticulosis Hepatic: NONE Renal: NONE Musculoskeletal: fibromyalgia, osteoarthritis, spinal stenosis Psychiatric: anxiety, depression, PTSD Endocrine: hypothyroidism Blood Disorders: anemia (iron deficiency) 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 Home Who Do You Live With? child Services at Home: Oxygen Primary Language: Kyrgyz Smoking Status: Former Smoker ETOH Use: denies use Illicit Drug Use: denies illicit drug use Functional Ability ADLs Independent: dressing, eating, toileting, bathing. Ambulation: independent IADLs Independent: shopping, housework, finances, food prep, telephone, transportation , medication admin. Exam & Diagnostic Data Vital Signs and I&O Vital Signs Date Time Temp Pulse Resp B/P B/P Pulse O2 O2 Flow FiO2 Mean Ox Delivery Rate 10/04 1949 94 Nasal 2.0L Cannula 10/04 1600 97 Nasal 2.0L Cannula 10/04 1600 99.0 115 20 129/58 97 Nasal 2.0L Cannula 10/04 1200 98.7 106 22 140/60 98 Nasal 2.0L Cannula 10/04 0925 84 102/64 10/04 0830 99 Nasal 2.0L Cannula 10/04 0819 95 Nasal 2.0L Cannula 10/04 799 97.9 104 20 138/70 99 Nasal 2.0L Cannula 10/04 399 97.4 78 20 140/70 99 Nasal 2.0L Cannula 10/04 399 99 Nasal 2.0L Cannula 10/04 0000 99 Nasal 2.0L Cannula 10/04 97.4 85 22 132/82 99 Nasal 2.0L Cannula 10/038 98 Nasal 2.0L Cannula 10/03 2139 Nasal 2.0L Cannula Intake & Output 10/04 0000 10/03 1600 10/03 0000 Intake Total 425 350 350 Output Total 750 600 Balance -325 -250 350 Intake, Blood 350 350 Product Intake, IV 225 Intake, Oral 200 Number 0 1 Bowel Movements Output, Urine 750 600 Patient 115 lb 115 lb Weight Weight Reported by Patient Measurement Method Physical Exam: General: WD/WN female in NAD; alert and oriented x 3 HEENT: NC/AT, PERRL, EOMI Neck: +ve JVD, no carotid bruit Heart: irregularly irregular Lungs: decreased air movement Abdomen: soft, NT, +ve bowel sounds Extremities: no edema Assessment/Plan Assessment/Plan * This patient should continue on anticoagulation with Xarelto for at least two more weeks and then is recommended to be on a platelet inhibitor. Her bleeding is not entirely unexpected since she has had multiple episodes of bleeding and this is the reason she needing the Watchman Atrial occuder device. The patient is now status post an upper endoscopy. According to Dr. Orlando of GI, this patient is likely to have a slow bleed and he feels that the patient is at a reasonable ris for re-initiating chronic anticoagulation with close follow up of her H/H. Transfuse another unit of pRBC's and restart Xarelto. Follow her H/H for 48 hours in the hospital. * Contiue current rate control drugs for her atrial fibrillation including diltiazem and digoxin. She may be slightly tachycardic due to her anemia which is appropriate. Hold Losartan until blood pressure is above 110mmHg. Consult Acknowledgment - Thank you for your consult request.
[2017-10-05] VITALS: BP 160/88
[2017-10-05 04:00] VITALS: BP 130/61
[2017-10-05 05:06] LABS: ABSOLUTE BASOPHIL COUNT 0 /CUMM (0.0-0.2); ABSOLUTE EOSINOPHIL COUNT 0 /CUMM (0.0-0.7); ABSOLUTE GRANULOCYTE CT 15.7 /CUMM (1.4-6.5); ABSOLUTE LYMPH COUNT 0.6 /CUMM (1.2-3.4); ABSOLUTE MONOCYTE COUNT 0.3 /CUMM (0.10-0.60); BASOPHIL % 0 % (0.0-2.0); EOSINOPHIL % 0 % (0-5); GRANULOCYTE % 94.7 % (42.2-75.2); HEMATOCRIT 28.3 % (37-47); MEAN CORPUSCULAR HGB 28.4 PG (27.0-31.0); MEAN CORPUSCULAR VOLUME 86.2 FL (81.0-99.0); MEAN PLATELET VOLUME 6.1 FL (7.4-10.4); PLATELET COUNT 723 /CUMM (130-400); RBC DISTRIBUTION WIDTH 16.9 % (11.5-14.5); RED BLOOD CELL CT 3.28 /CUMM (4.20-5.40); WHITE BLOOD CELL COUNT 16.6 /CUMM (4.8-10.8)
--- NOTE | 2017-10-05 07:11 | RADIOLOGY REPORT ---
EXAMINATION: XR PORTABLE CHEST CLINICAL INFORMATION: Leukocytosis, sputum production. COMPARISON: Chest portable 10/03/[address] chest 10/03/2017. TECHNIQUE: Portable frontal view of the chest was obtained. FINDINGS: No significant abnormality is noted involving the heart, lungs, mediastinum, bony thorax or soft tissues. IMPRESSION: Unremarkable chest examination. No change from 10/03/2017.
[2017-10-05 08:00] VITALS: BP 150/80
--- NOTE | 2017-10-05 08:21 | PN- Resident CRCU ---
Subjective HPI/CRCU Issues: Ms Marie was seen and examined this morning. She appears comfrotable and is enjoying her breakfast. She states she was unable to get much rest last night owing to the late time of her Lasix been given to her. She states she feels better for the additional transfusions, although endorses some dysnpean this morning. She states that she may "be developing a pneumonia". She endorses a non productive cough. She denies any melena, hematemesis or BRBPR. She denies and fever, chills, nausea or vomiting. 24 Hour Events: Patient was transfused on additional Unit PRBC Objective Vital Signs & I&O Last 8 Hrs of Vitals and I&O: Intake & Output 10/05 1600 Intake Total 980 Output Total 1200 Balance -220 Intake, IV 30 Intake, Oral 950 Output, Urine 1200 Exam General Appearance: well developed/nourished, no apparent distress, alert, anxious Neck: normal inspection Respiratory: Bilaterral Wheezing. Cardiovascular: regular rate/rhythm Gastrointestinal: normal bowel sounds, soft, non-tender Extremities: normal inspection, normal capillary refill, normal range of motion, no edema Cranial Nerves: normal hearing, normal speech Current Medications: Current Medications Sig/Lana Start time Last Medication Dose Route Stop Time Status Admin Acetaminophen 650 MG Q4P PRN 10/03 2129 AC PO Albuterol Sulfate 3 ML TID 10/03 2199 AC 10/05 INH 0903 Alprazolam 0.5 MG BID PRN 10/03 2200 AC 10/04 PO 10/10 2159 2249 Benzonatate 100 MG TID PRN 10/04 2015 AC 10/05 PO 0600 Bupropion HCl 100 MG QAM 10/04 1000 AC 10/05 PO 0835 Chlorhexidine 1 GM .STK-MED ONE 10/04 1445 DC Gluconate TOP 10/04 1446 Dextrose/Water 1,000 ML Q13H 10/04 0900 DC 10/04 IV 1017 Digoxin 0.125 MG 1700 10/04 1700 AC 10/04 PO 1704 Diltiazem HCl 240 MG BID 10/03 2200 AC 10/05 PO 0836 Docusate Sodium 200 MG QPM 10/03 2200 AC 10/04 PO 2119 Ezetimibe 10 MG QPM 10/03 2200 AC 10/04 PO 2121 Ferrous Sulfate 325 MG TID 10/03 2200 AC 10/05 PO 0836 Furosemide 40 MG BID 10/03 2200 AC 10/05 PO 0834 Guaifenesin 10 ML .STK-MED ONE 10/04 1750 DC PO 10/04 1751 Guaifenesin 600 MG DAILY 10/04 1000 AC 10/05 PO 0835 Hydromorphone HCl 2 MG Q6P PRN 10/03 2345 AC 10/05 IV 0832 Levothyroxine Sodium 0.1 MG DAILY AC 10/04 0700 AC 10/05 PO 0603 Losartan Potassium 50 MG DAILY 10/04 1000 AC 10/05 PO 0836 Melatonin 5 MG AT BEDTIME 10/03 2345 AC 10/04 PO 2247 Methylprednisolone 40 MG Q12 10/04 2200 AC 10/05 IV 0843 Montelukast Sodium 10 MG DAILY 10/04 1000 AC 10/05 PO 0834 Nitroglycerin 0.6 MG DAILY 10/04 1000 AC 10/05 TOP 0837 Pantoprazole Sodium 40 MG DAILY 10/04 1000 AC 10/05 IV 0843 Potassium Chloride 40 MEQ ONCE ONE 10/04 1200 CAN PO 10/04 1201 Pravastatin Sodium 40 MG QPM 10/03 2200 AC 10/04 PO 2120 Rivaroxaban 20 MG DAILY 10/05 1000 AC 10/05 PO 0834 Sertraline HCl 200 MG DAILY 10/04 1000 AC 10/05 PO 0835 Tiotropium [place] 1 PUF DAILY 10/04 1000 AC 10/05 INH 0839 Impression/Plan Impression/Problem List Impression: Ms. Escobar is a 67 yo f with PMH significant for A.fib currently on Xarelto for 6 weeks s/p a watchman implant, COPD on home oxygen of 2L NC, chronic GI bleeding and iron deficiency anemia 2/2 to AVM malformation with cauterization who presents with worsening SOB and fatigue Resp: Acute hypoxic respiratory failure most likely 2/2 COPD vs PNA She was given IV Ceftazadime due to her history of Pseudomonas PNA. She had leukocytosis without bandemia. CT chest demonstrated waxing and waning of the bilateral airspace disease, pneumonia and emphysematous changes * Repeat CXR in a.m. * Prednisone 40 mg daily (from 10/06/2017), Patient had received Solumederol 10/05. * Follow off antibiotics ID: She was given IV Ceftazadime due to her history of Pseudomonas PNA. She had leukocytosis without bandemia. CT chest suspicious for PNA * Discontinue Ceftazidime and watch off antibiotics CVS: A.fib currently on Xarelto for 6 weeks s/p a watchman implant * Xarelto resumed today * Cardiology recommendations appreciated Heme: Chronic anemia s/p 3 prbcs Patient had an endoscopy on 10/04/2017, no active bleeding. * Monitor H&H, goal > 8, transfuse if necessary * GI recommendations appreciated Metabolic: Hypokalemia * Monitor and replete potassium DVT ppx: ALPS. Xaerlto to be resumed today. Problem List: 1. Atrial fibrillation 2. Acute GI bleeding Pain Ratin Tomorrow's Labs & Rationales: ICU Bundle: Monitor electrolytes in the setting of acute illness CBC: monirot H/H in the setting of acute illness. Plan DVT/Prophylaxis: pharmacological
--- NOTE | 2017-10-05 10:31 | PN- CRCU ---
Subjective HPI/Critical Care Issues: DOing better Did have to urinate all night due to lasix Stable EGD noted GI eval as noted below Impression: 1. Fundic gland polyp. 2. Otherwise grossly normal showed thoracic be with no active bleeding or source of anemia appreciated to the proximal/mid jejunum. Recommendations: 1. Advance diet as tolerated. 2. Resume oral PPI. 3. Avoid NSAIDs. 4. There are no absolute GI contraindication to resuming anticoagulation if medically indicated. 5. Follow daily CBCs and transfuse as needed to maintain hemoglobin greater than 8 or as per cardiology recommendations. 6. Restart oral iron supplementation. 7. If she has no active bleeding consideration should be given to discharge the patient home later today with close outpatient follow-up to follow her hemoglobin while she continues on Xarelto. Objective Current Medications: Current Medications Sig/Lana Start time Last Medication Dose Route Stop Time Status Admin Acetaminophen 650 MG Q4P PRN 10/03 2129 AC PO Albuterol Sulfate 3 ML TID 10/03 2199 AC 10/05 INH 0903 Alprazolam 0.5 MG BID PRN 10/03 220 AC 10/04 PO 10/10 2159 2249 Benzonatate 100 MG TID PRN 10/04 2014 AC 10/05 PO 0600 Bupropion HCl 100 MG QAM 10/04 1000 AC 10/05 PO 0835 Chlorhexidine 1 GM .STK-MED ONE 10/04 1445 DC Gluconate TOP 10/04 1446 Dextrose/Water 1,000 ML Q13H 10/04 0900 DC 10/04 IV 1017 Digoxin 0.125 MG 1700 10/04 1700 AC 10/04 PO 1704 Diltiazem HCl 240 MG BID 10/03 220 AC 10/05 PO 0836 Docusate Sodium 200 MG QPM 10/03 2200 AC 10/04 PO 2119 Ezetimibe 10 MG QPM 10/03 2200 AC 10/04 PO 2121 Ferrous Sulfate 325 MG TID 10/03 2199 AC 10/05 PO 0836 Furosemide 40 MG BID 10/03 220 AC 10/05 PO 0834 Guaifenesin 10 ML .STK-MED ONE 10/04 1750 DC PO 10/04 1751 Guaifenesin 600 MG DAILY 10/04 1000 AC 10/05 PO 0835 Hydromorphone HCl 2 MG Q6P PRN 10/03 2345 AC 10/05 IV 0832 Levothyroxine Sodium 0.1 MG DAILY AC 10/04 0700 AC 10/05 PO 0603 Losartan Potassium 50 MG DAILY 10/04 1000 AC 10/05 PO 0836 Melatonin 5 MG AT BEDTIME 10/03 2345 AC 10/04 PO 2247 Methylprednisolone 40 MG Q12 10/04 2200 AC 10/05 IV 0843 Montelukast Sodium 10 MG DAILY 10/04 1000 AC 10/05 PO 0834 Nitroglycerin 0.6 MG DAILY 10/04 1000 AC 10/05 TOP 0837 Pantoprazole Sodium 40 MG DAILY 10/04 1000 AC 10/05 IV 0843 Potassium Chloride 40 MEQ ONCE ONE 10/04 1200 CAN PO 10/04 1201 Pravastatin Sodium 40 MG QPM 10/03 2200 AC 10/04 PO 2120 Rivaroxaban 20 MG DAILY 10/05 1000 AC 10/05 PO 0834 Sertraline HCl 200 MG DAILY 10/04 1000 AC 10/05 PO 0835 Tiotropium [place] 1 PUF DAILY 10/04 1000 AC 10/05 INH 0839 Vital Signs & I&O Last 24 Hrs of Vitals and I&O: Vital Signs Date Time Temp Pulse Resp B/P B/P Pulse O2 O2 Flow FiO2 Mean Ox Delivery Rate 10/05 0906 95 Nasal 2.0L Cannula 10/05 0836 88 153/77 10/05 0400 98 Nasal 2.0L Cannula 10/05 0400 98.1 87 24 130/61 98 Nasal 2.0L Cannula 10/05 0000 98 Nasal 2.0L Cannula 10/05 0000 97.0 104 24 160/88 98 Nasal 2.0L Cannula 10/04 2054 98 Nasal 2.0L Cannula 10/04 1949 94 Nasal 2.0L Cannula 10/04 1600 97 Nasal 2.0L Cannula 10/04 1600 99.0 115 20 129/58 97 Nasal 2.0L Cannula 10/04 1200 98.7 106 22 140/60 98 Nasal 2.0L Cannula Intake & Output 10/05 1600 10/05 0800 10/05 0000 Intake Total 550 850 Output Total 1700 500 Balance -1150 350 Intake, Blood 350 Product Intake, Oral 550 500 Number 0 0 Bowel Movements Output, Urine 1700 500 Patient 111 lb Weight Weight Bed scale Measurement Method Laboratory Tests 10/05 10/04 0355 1105 Chemistry Sodium (137 - 145 mmol/L) 137 Potassium (3.5 - 5.1 mmol/L) 4.0 Chloride (98 - 107 mmol/L) 93 L Carbon Dioxide (22 - 30 mmol/L) 27 Anion Gap (5 - 16) 17 H BUN (7 - 17 mg/dL) 24 H Creatinine (0.5 - 1.0 mg/dL) 0.9 Estimated GFR (>60 ml/min) > 60 Glucose (65 - 99 mg/dL) 137 H Calcium (8.4 - 10.2 mg/dL) 9.4 Phosphorus (2.5 - 4.5 mg/dL) 4.3 Magnesium (1.6 - 2.3 mg/dL) 1.9 Total Bilirubin (0.2 - 1.3 mg/dL) 0.4 AST (14 - 36 U/L) 23 ALT (9 - 52 U/L) 37 Albumin (3.5 - 5.0 g/dL) 3.9 Hematology CBC w Diff MAN DIFF ORDERED WBC (4.8 - 10.8 /CUMM) 16.6 H RBC (4.20 - 5.40 /CUMM) 3.28 L Hgb (12.0 - 16.0 G/DL) 9.3 L Hct (37 - 47 %) 28.3 L MCV (81.0 - 99.0 FL) 86.2 MCH (27.0 - 31.0 PG) 28.4 RDW (11.5 - 14.5 %) 16.9 H Plt Count (130 - 400 /CUMM) 723 H MPV (7.4 - 10.4 FL) 6.1 L Gran % (42.2 - 75.2 %) 94.7 H Lymphocytes % (20.5 - 51.1 %) 3.6 L Monocytes % (1.7 - 9.3 %) 1.7 Eosinophils % (0 - 5 %) 0 Basophils % (0.0 - 2.0 %) 0 Absolute Granulocytes (1.4 - 6.5 /CUMM) 15.7 H Absolute Lymphocytes (1.2 - 3.4 /CUMM) 0.6 L Absolute Monocytes (0.10 - 0.60 /CUMM) 0.3 Absolute Eosinophils (0.0 - 0.7 /CUMM) 0 Absolute Basophils (0.0 - 0.2 /CUMM) 0 Platelet Estimate (ADEQUATE) INCREASED Polychromasia 1+ Hypochromic-Microcytic 2+ Anisocytosis 1+ PUBS MCHC (33.0 - 37.0 G/DL) 33.0 Toxicology Urine Opiates Screen (>2000 NG/ML) 207.00 Methadone Screen (>300 NG/ML) 79 Barbiturate Screen (>200 NG/ML) < 60 Ur Phencyclidine Scrn (>25 NG/ML) < 6.00 Amphetamines Screen (>1000 NG/ML) 242 U Benzodiazepines Scrn (>200 NG/ML) > 800 H Urine Cocaine Screen (>300 NG/ML) < 50 Urine Cannabis Screen (>50 NG/ML) < 5.00 Urines Urine Color (YEL,AMB,STR) YEL Urine Clarity (CLEAR) CLEAR Urine pH (5.0 - 8.0) 6.0 Ur Specific [place] (1.001 - 1.035) 1.020 Urine Protein (NEG,<30 MG/DL) NEG Urine Ketones (NEG) TRACE H Urine Nitrite (NEG) NEG Urine Bilirubin (NEG) NEG Urine Urobilinogen (0.1 - 1.0 EU/dl) 0.2 Ur Leukocyte Esterase (NEG) NEG Ur Microscopic EXAM NOT REQUIRED Urine Hemoglobin (NEG) NEG Urine Glucose (N MG/DL) NEG 10/04 10/04 10/04 0500 0400 0300 Chemistry Sodium (137 - 145 mmol/L) 136 L Potassium (3.5 - 5.1 mmol/L) 3.5 Chloride (98 - 107 mmol/L) 96 L Carbon Dioxide (22 - 30 mmol/L) 26 Anion Gap (5 - 16) 14 BUN (7 - 17 mg/dL) 16 Creatinine (0.5 - 1.0 mg/dL) 0.6 Estimated GFR (>60 ml/min) > 60 Glucose (65 - 99 mg/dL) 112 H Calcium (8.4 - 10.2 mg/dL) 9.3 Phosphorus (2.5 - 4.5 mg/dL) 3.4 Magnesium (1.6 - 2.3 mg/dL) 1.9 Iron (37 - 170 ug/dL) 279 H TIBC (265 - 497 ug/dL) 358 Ferritin (11.1 - 264 ng/mL) 20.0 Total Bilirubin (0.2 - 1.3 mg/dL) 0.6 AST (14 - 36 U/L) 19 ALT (9 - 52 U/L) 31 Lactate Dehydrogenase (313 - 618 U/L) 428 Troponin I (< 0.11 ng/ml) 0.05 Cancelled Albumin (3.5 - 5.0 g/dL) 3.6 Hematology CBC w Diff MAN DIFF ORDERED WBC (4.8 - 10.8 /CUMM) 17.0 H RBC (4.20 - 5.40 /CUMM) 2.91 L Hgb (12.0 - 16.0 G/DL) 8.2 L Hct (37 - 47 %) 25.1 L MCV (81.0 - 99.0 FL) 86.2 MCH (27.0 - 31.0 PG) 28.3 RDW (11.5 - 14.5 %) 18.0 H Plt Count (130 - 400 /CUMM) 865 H MPV (7.4 - 10.4 FL) 5.7 L Gran % (42.2 - 75.2 %) 96.4 H Lymphocytes % (20.5 - 51.1 %) 3.4 L Monocytes % (1.7 - 9.3 %) 0.2 L Eosinophils % (0 - 5 %) 0 Basophils % (0.0 - 2.0 %) 0 Absolute Granulocytes (1.4 - 6.5 /CUMM) 16.4 H Absolute Lymphocytes (1.2 - 3.4 /CUMM) 0.6 L Absolute Monocytes (0.10 - 0.60 /CUMM) 0 L Absolute Eosinophils (0.0 - 0.7 /CUMM) 0 Absolute Basophils (0.0 - 0.2 /CUMM) 0 Platelet Estimate (ADEQUATE) INCREASED Polychromasia 1+ Hypochromic-Microcytic 2+ Poikilocytosis 2+ Anisocytosis 2+ Ovalocytes 1+ Elliptocytes PUBS MCHC (33.0 - 37.0 G/DL) 32.8 L Retic Count (0.5 - 2.0 %) 3.10 H Haptoglobin Pending 10/03 10/03 2200 1600 Chemistry Sodium (137 - 145 mmol/L) 138 Potassium (3.5 - 5.1 mmol/L) 3.5 Chloride (98 - 107 mmol/L) 93 L Carbon Dioxide (22 - 30 mmol/L) 29 Anion Gap (5 - 16) 16 BUN (7 - 17 mg/dL) 20 H Creatinine (0.5 - 1.0 mg/dL) 0.7 Estimated GFR (>60 ml/min) > 60 BUN/Creatinine Ratio (7 - 25 %) 28.6 H Glucose (65 - 99 mg/dL) 106 H Calcium (8.4 - 10.2 mg/dL) 8.9 Total Bilirubin (0.2 - 1.3 mg/dL) 0.1 L AST (14 - 36 U/L) 20 ALT (9 - 52 U/L) 36 Alkaline Phosphatase (<127 U/L) 60 Troponin I (< 0.11 ng/ml) Cancelled 0.05 [id number] Pept (<125 pg/mL) 3840 H Total Protein (6.3 - 8.2 g/dL) 5.7 L Albumin (3.5 - 5.0 g/dL) 3.7 Globulin (1.9 - 4.2 gm/dL) 2.0 Albumin/Globulin Ratio (1.1 - 2.2 %) 1.9 Coagulation PT (9.4 - 12.5 SEC) 35.2 H INR (0.90 - 1.19) 3.39 H APTT (25 - 37 SEC) 40 H Hematology CBC w Diff NO MAN DIFF REQ WBC (4.8 - 10.8 /CUMM) 17.1 H RBC (4.20 - 5.40 /CUMM) 1.91 L Hgb (12.0 - 16.0 G/DL) 5.4 *L Hct (37 - 47 %) 16.9 *L MCV (81.0 - 99.0 FL) 88.5 MCH (27.0 - 31.0 PG) 28.2 RDW (11.5 - 14.5 %) 18.4 H Plt Count (130 - 400 /CUMM) 981 H MPV (7.4 - 10.4 FL) 5.6 L Gran % (42.2 - 75.2 %) 94.4 H Lymphocytes % (20.5 - 51.1 %) 2.9 L Monocytes % (1.7 - 9.3 %) 2.5 Eosinophils % (0 - 5 %) 0.2 Basophils % (0.0 - 2.0 %) 0 Absolute Granulocytes (1.4 - 6.5 /CUMM) 16.2 H Absolute Lymphocytes (1.2 - 3.4 /CUMM) 0.5 L Absolute Monocytes (0.10 - 0.60 /CUMM) 0.4 Absolute Eosinophils (0.0 - 0.7 /CUMM) 0 Absolute Basophils (0.0 - 0.2 /CUMM) 0 PUBS MCHC (33.0 - 37.0 G/DL) 31.8 L Toxicology Digoxin (0.8 - 2.0 ng/mL) 1.4 Microbiology Date/Time Procedure - Status Source Growth 10/04 1105 Urine Culture - RECD URINE ROUT 10/04 09 Blood Culture - RECD BLOOD 10/04 399 Blood Culture - RECD BLOOD 10/03 2134 Surveillance Culture - COMP UPPER RESP 10/03 2134 Surveillance Culture - COMP GI 10/03 2035 Respiratory Culture - CAN LOWER RESP Cancelled: NO SPUTUM COLLECTED 10/03 2035 Gram Stain - CAN LOWER RESP Cancelled: NO SPUTUM COLLECTED Impression/Plan Impression/Plan Impression/Plan: General Appearance Alert, Oriented X3, Cooperative, No Acute Distress Skin No Breakdown, No Significant Lesion Skin Temp/Moisture Exam: Warm/Dry Sepsis Skin Exam (color): Pale HEENT PERRLA, EOMI, Mucous Membr. moist/pink, pallor Neck Supple, No JVD, No thryomegaly Lymphatic Axillary nl, Cervical nl Cardiovascular irregularly irregular Lungs b/l crackles Abdomen Normal Bowel Sounds, Soft, No Tenderness Extremities No Edema Ms. Escobar is a 67 yo f with PMH significant for A.fib currently on Xarelto for 6 weeks s/p a watchman implant, COPD on home oxygen of 2L NC, chronic GI bleeding and iron deficiency anemia 2/2 to AVM malformation s/p balloon enteroscopy with cauterization who presents with worsening SOB and fatigue ANemia blood loss Afib s/p watchman device COPD with mild wheezing Waxing and waning of airspace disease REC watch crit Transfuse for hgb less than 8 PO prednisone and taper soon Observe off abx Anticoag etc per cardio and gi Watch blood work etc DC soon in the next day
--- NOTE | 2017-10-05 15:18 | PN- Cardiology ---
Subjective Subjective: Stable at the moment. Started back on anticoagulation today. Had vomiting earlier today, however. Objective Vital Signs and I&Os Vital Signs Date Time Temp Pulse Resp B/P B/P Pulse O2 O2 Flow FiO2 Mean Ox Delivery Rate 10/05 0906 95 Nasal 2.0L Cannula 10/05 0836 88 153/77 10/05 08 97.8 82 24 150/80 99 Nasal 2.0L Cannula 10/05 08 98 Nasal 2.0L Cannula 10/05 0400 98 Nasal 2.0L Cannula 10/05 0400 98.1 87 24 130/61 98 Nasal 2.0L Cannula 10/05 0000 98 Nasal 2.0L Cannula 10/05 0000 97.0 104 24 160/88 98 Nasal 2.0L Cannula 10/04 2054 98 Nasal 2.0L Cannula 10/04 1948 94 Nasal 2.0L Cannula 10/04 1600 97 Nasal 2.0L Cannula 10/04 1600 99.0 115 20 129/58 97 Nasal 2.0L Cannula Intake & Output 10/05 1600 10/05 0800 10/05 0000 10/04 1600 10/04 0800 10/04 0000 Intake Total 980 550 850 425 350 350 Output Total 1200 1700 500 750 600 Balance -220 -1150 350 -325 -250 350 Intake, Blood 350 350 350 Product Intake, IV 30 225 Intake, Oral 950 550 500 200 Number 0 0 0 1 Bowel Movements Output, Urine 1200 1700 500 750 600 Patient 111 lb 115 lb Weight Weight Bed scale Measurement Method Physical Exam: General Appearance Alert, Oriented X3, Cooperative, No Acute Distress Skin normal HEENT PERRLA, EOMI, Mucous Membr. moist/pink, pallor Neck Supple, No JVD, No thryomegaly, carotids normal bilaterally Lymphatic Axillary nl, Cervical nl Cardiovascular irregularly irregular, S1, S2, 1/6 systolic murmur Lungs bilateral rhonchi Abdomen Normal Bowel Sounds, Soft, No Tenderness Extremities No Edema Current Medications: Current Medications Sig/Lana Start time Last Medication Dose Route Stop Time Status Admin Acetaminophen 650 MG Q4P PRN 10/03 2129 AC PO Albuterol Sulfate 3 ML TID 10/03 2199 AC 10/05 INH 1407 Alprazolam 0.5 MG BID PRN 10/03 2199 AC 10/04 PO 10/10 2159 2249 Artificial Tears 2 GTT 4 TIMES/DAY 10/05 1058 AC 10/05 OPH 1411 Benzonatate 100 MG TID PRN 10/04 2015 AC 10/05 PO 0600 Bupropion HCl 100 MG QAM 10/04 1000 AC 10/05 PO 0835 Dextrose/Water 1,000 ML Q13H 10/04 0900 DC 10/04 IV 1017 Digoxin 0.125 MG 1700 10/04 1700 AC 10/04 PO 1704 Diltiazem HCl 240 MG BID 10/03 2200 AC 10/05 PO 0836 Docusate Sodium 200 MG QPM 10/03 2200 AC 10/04 PO 2119 Ezetimibe 10 MG QPM 10/03 2200 AC 10/04 PO 2121 Ferrous Sulfate 325 MG TID 10/03 2200 AC 10/05 PO 0836 Furosemide 40 MG BID 10/03 2200 AC 10/05 PO 0834 Guaifenesin 10 ML .STK-MED ONE 10/04 1750 DC PO 10/04 1751 Guaifenesin 600 MG DAILY 10/04 1000 AC 10/05 PO 0835 Hydromorphone HCl 2 MG Q6P PRN 10/03 2345 AC 10/05 IV 1451 Levothyroxine Sodium 0.1 MG DAILY AC 10/04 0700 AC 10/05 PO 0603 Losartan Potassium 50 MG DAILY 10/04 1000 AC 10/05 PO 0836 Melatonin 5 MG AT BEDTIME 10/03 2345 AC 10/04 PO 2247 Methylprednisolone 40 MG Q12 10/04 2200 DC 10/05 IV 0843 Montelukast Sodium 10 MG DAILY 10/04 1000 AC 10/05 PO 0834 Nitroglycerin 0.6 MG DAILY 10/04 1000 AC 10/05 TOP 0837 Ondansetron HCl 4 MG ONCE ONE 10/05 1100 DC 10/05 IV 10/05 1101 1104 Pantoprazole Sodium 40 MG DAILY 10/04 1000 AC 10/05 IV 0843 Polyethylene Glycol 17 GM DAILY PRN 10/05 1100 AC PO Pravastatin Sodium 40 MG QPM 10/03 2200 AC 10/04 PO 2120 Prednisone 40 MG DAILY 10/06 1000 AC PO 10/07 1001 Rivaroxaban 20 MG DAILY 10/05 1000 AC 10/05 PO 0834 Sertraline HCl 200 MG DAILY 10/04 1000 AC 10/05 PO 0835 Tiotropium [place] 1 PUF DAILY 10/04 1000 AC 10/05 INH 0839 Results Last 48 Hrs of Labs/Mics: Laboratory Tests 10/05/17 0355: Anion Gap 17 H, Estimated GFR > 60, Glucose 137 H, Calcium 9.4, Phosphorus 4.3 , Magnesium 1.9, Total Bilirubin 0.4, AST 23, ALT 37, Albumin 3.9, CBC w Diff MAN DIFF ORDERED, RBC 3.28 L, MCV 86.2, MCH 28.4, RDW 16.9 H, MPV 6.1 L, Gran % 94.7 H, Lymphocytes % 3.6 L, Monocytes % 1.7, Eosinophils % 0, Basophils % 0 , Absolute Granulocytes 15.7 H, Absolute Lymphocytes 0.6 L, Absolute Monocytes 0.3, Absolute Eosinophils 0, Absolute Basophils 0, Platelet Estimate INCREASED, Polychromasia 1+, Hypochromic-Microcytic 2+, Anisocytosis 1+, PUBS MCHC 33.0 10/04/17 1105: Urine Opiates Screen 207.00, Methadone Screen 79, Barbiturate Screen < 60, Ur Phencyclidine Scrn < 6.00, Amphetamines Screen 242, U Benzodiazepines Scrn > 800 H, Urine Cocaine Screen < 50, Urine Cannabis Screen < 5.00, Urine Color YEL, Urine Clarity CLEAR, Urine pH 6.0, Ur Specific [place] 1.020, Urine Protein NEG, Urine Ketones TRACE H, Urine Nitrite NEG, Urine Bilirubin NEG, Urine Urobilinogen 0.2, Ur Leukocyte Esterase NEG, Ur Microscopic EXAM NOT REQUIRED, Urine Hemoglobin NEG, Urine Glucose NEG 10/04/17 0500: Haptoglobin Pending 10/04/17 0400: Anion Gap 14, Estimated GFR > 60, Glucose 112 H, Calcium 9.3, Phosphorus 3.4, Magnesium 1.9, Iron 279 H, TIBC 358, Ferritin 20.0, Total Bilirubin 0.6, AST 19 , ALT 31, Lactate Dehydrogenase 428, Troponin I 0.05, Albumin 3.6, CBC w Diff MAN DIFF ORDERED, RBC 2.91 L, MCV 86.2, MCH 28.3, RDW 18.0 H, MPV 5.7 L, Gran % 96.4 H, Lymphocytes % 3.4 L, Monocytes % 0.2 L, Eosinophils % 0, Basophils % 0, Absolute Granulocytes 16.4 H, Absolute Lymphocytes 0.6 L, Absolute Monocytes 0 L, Absolute Eosinophils 0, Absolute Basophils 0, Platelet Estimate INCREASED, Polychromasia 1+, Hypochromic-Microcytic 2+, Poikilocytosis 2+, Anisocytosis 2+, Ovalocytes 1+, Elliptocytes , PUBS MCHC 32.8 L, Retic Count 3.10 H 10/04/17 0300: Troponin I Cancelled 10/03/17 2200: Troponin I Cancelled 10/03/17 1600: Anion Gap 16, Estimated GFR > 60, BUN/Creatinine Ratio 28.6 H, Glucose 106 H, Calcium 8.9, Total Bilirubin 0.1 L, AST 20, ALT 36, Alkaline Phosphatase 60, Troponin I 0.05, [id number] Pept 3840 H, Total Protein 5.7 L, Albumin 3.7, Globulin 2.0, Albumin/Globulin Ratio 1.9, PT 35.2 H, INR 3.39 H, APTT 40 H, CBC w Diff NO MAN DIFF REQ, RBC 1.91 L, MCV 88.5, MCH 28.2, RDW 18.4 H, MPV 5.6 L, Gran % 94.4 H, Lymphocytes % 2.9 L, Monocytes % 2.5, Eosinophils % 0.2 , Basophils % 0, Absolute Granulocytes 16.2 H, Absolute Lymphocytes 0.5 L, Absolute Monocytes 0.4, Absolute Eosinophils 0, Absolute Basophils 0, PUBS MCHC 31.8 L, Digoxin 1.4 Microbiology 10/03 2134 UPPER RESP: Surveillance Culture - COMP 10/03 2134 GI: Surveillance Culture - COMP Assessment/Plan Assessment/Plan Assessment: 1. Atrial fibrillation, status post atrial watchman appendage occluder device 2. GI bleeding 3. Relative tachycardia 4. Anemia 5. Leukocytosis Recommendations: -Continue anticoagulation at present dose -Continue current rate control medications -Continue to monitor hemoglobin/hematocrit -Stable for transfer out of ICU. * Continue telemetry? Yes
--- NOTE | 2017-10-05 18:52 | Transfer of Care Summary ---
Hospital Course Course Hospital Course: Ms. Escobar is a 67 yo f with PMH significant for A.fib currently on Xarelto for 6 weeks s/p a watchman implant, COPD on home oxygen of 2L NC, chronic GI bleeding and iron deficiency anemia 2/2 to AVM malformation s/p balloon enteroscopy with cauterization who presented with worsening SOB and fatigue. She was admitted to the critical care unit and below is a summary of the care she received under us. Her Problem list: Acute blood loss anemia likely due to AVM. History of atrial fibrillation status post recent watchman device. COPD exacerbation. Airspace disease, hx of pseudemonas. Complications: No complications during [facility] admission. Significant Procedures: Endoscopy Procedure. Medical History: unchanged (see meditech consult) Mental Status: alert/oriented Heart/Lung Eval Prior to Sedation: within normal limits Candidate for Sedation? Yes Procedure Date: 10/04/17 Procedure Type: push enteroscopy Communications Designer: Bull Orlando MD ASA Classification: III Indications: Anemia, guaiac positive stool, history of small bowel AVMs s/p double balloon enterosocopy 12/07 with APC performed. Instrument: pediatric colonoscope Meds Received: MAC Patient's Tolerance: good Complications: none Extent Reached: proximal/mid jejunum Procedure: After getting written informed consent the patient was placed in the left lateral decubitus position with pulse oximetry, cardiac monitoring, and supplemental oxygen given. A bite block was inserted and IV sedation was given until the desired effect was achieved. A high definition upper Olympus pediatric colonoscope was then inserted into the mouth and advanced to the proximal/mid jejunum with little difficulty. Retroflexed views and photodocumentation was obtained. Findings: Esophagus: The esophageal mucosa was grossly normal appearance and there is a normal appearing Z line at 40 cm from the incisors. Stomach: The gastric mucosa was grossly normal appearance. There were no ulcers , erosions, or masses appreciated. Distention and peristalsis of stomach appeared normal. Retroflexed views were normal did not reveal significant hiatal hernia. There was an isolated small 3 mm sessile polyp in the fundus consistent in appearance with a fundic gland polyp which was left in place. Duodenum: The duodenal bulb, sweep, and folds were grossly normal in appearance. Jejunum: The visualized proximal jejunal mucosa was grossly normal in appearance. There was bile appreciated throughout the visualized portion of the jejunum. Of note, due to looping in the stomach only a short portion of the jejunum was able to visualized. Impression: 1. Fundic gland polyp. 2. Otherwise grossly normal showed thoracic be with no active bleeding or source of anemia appreciated to the proximal/mid jejunum. Assessment/Plan: Acute hypoxic respiratory failure most likely 2/2 COPD At the time of admission the patient was given IV ceftazidime owing to previous history of Pseudomonal pneumonia. Although the patient did have leukocytosis patient was followed off antibiotics and continued on IV methylprednisolone. This was transitioned to by mouth steroids on 10/06/2017. This will likely need to be transitioned to PO steroids over the next few days. Acute blood loss anemia due to AVM. At the time of presentation, the patient had an H/H of: 5.4/16.9. Patient was transfused 2 units of PRBCs. She subsequently underwent an enteroscopy the results of which are attached onto this report. On the evening of 10/04/2017 patient was transfused another unit of PRBCs. She responded appropriately and her H&H remained stable at: 9.3/28.3. An oral PPI was resumed. Patient has been instructed to avoid NSAIDs. Oral iron supplementation was also started.Her diet was advanced as tolerated. A.fib currently on Xarelto (for 6 weeks) s/p a watchman implant At the time of presentation the patient's Xarelto was held. On 10/05/2017 resumed Xarelto owing to recommendations from cardiology. It was recommended from 10/04/2017 that the patient would require an additional two weeks of Xarelto therapy. Rate controlling medications diltiazem and digoxin were continued. Patients electrolytes were monitored and repeated accordingly. On 10/04/2017 patient underwent a push enteroscopy. The results of this test have been included on this report.
[2017-10-05 22:27] VITALS: BP 140/62
[2017-10-06 07:09] VITALS: BP 124/68
[2017-10-06 07:55] LABS: ABSOLUTE BASOPHIL COUNT 0 /CUMM (0.0-0.2); ABSOLUTE EOSINOPHIL COUNT 0 /CUMM (0.0-0.7); ABSOLUTE GRANULOCYTE CT 13.4 /CUMM (1.4-6.5); ABSOLUTE LYMPH COUNT 1.4 /CUMM (1.2-3.4); ABSOLUTE MONOCYTE COUNT 1.4 /CUMM (0.10-0.60); BASOPHIL % 0 % (0.0-2.0); EOSINOPHIL % 0 % (0-5); GRANULOCYTE % 82.9 % (42.2-75.2); HEMATOCRIT 28.2 % (37-47); MEAN CORPUSCULAR VOLUME 87.3 FL (81.0-99.0); MEAN PLATELET VOLUME 5.9 FL (7.4-10.4); PLATELET COUNT 813 /CUMM (130-400); RBC DISTRIBUTION WIDTH 17.4 % (11.5-14.5); RED BLOOD CELL CT 3.23 /CUMM (4.20-5.40); WHITE BLOOD CELL COUNT 16.1 /CUMM (4.8-10.8)
--- NOTE | 2017-10-06 09:54 | PN- Housestaff ---
Subjective Follow-up For: anemia, COPD Tele-Events Since Last Visit: afib, 60-90 Subjective: No ovneright events. She has no CP or SOB. Pain is well controlled. Complaining of constipation, but hasn't been eating much. Review of Systems Constitutional: Reports: no symptoms. EENTM: Reports: no symptoms. Cardiovascular: Reports: no symptoms. Respiratory: Reports: no symptoms. Gastrointestinal: Reports: see HPI. Genitourinary: Reports: no symptoms. Musculoskeletal: Reports: no symptoms. Skin: Reports: no symptoms. Neurological/Psychological: Reports: no symptoms. Hematologic/Endocrine: Reports: no symptoms. Immunologic/Allergic: Reports: no symptoms. Objective Last 24 Hrs of Vital Signs/I&O Vital Signs Date Time Temp Pulse Resp B/P B/P Pulse O2 O2 Flow FiO2 Mean Ox Delivery Rate 10/06 0841 71 124/68 10/06 0836 95 Nasal 2.0L Cannula 10/06 0800 96 Nasal 2.0L Cannula 10/06 0709 97.8 71 18 124/68 100 Nasal Cannula 10/06 0000 100 Nasal 2.0L Cannula 10/05 2227 97.6 103 24 140/62 97 Nasal Cannula 10/05 2048 99 Nasal 2.0L Cannula 10/05 1700 92 124/70 10/05 1600 Nasal 2.0L Cannula Intake & Output 10/06 1600 10/06 0800 10/06 0000 Intake Total 120 450 Output Total Balance 120 450 Intake, IV 20 Intake, Oral 100 450 Number 0 Bowel Movements Patient 118 lb Weight Weight Bed scale Measurement Method Physical Exam General Appearance: Alert, Oriented X3, Cooperative, No Acute Distress Cardiovascular: Regular Rate, Normal S1, Normal S2 Lungs: moderate wheezing Abdomen: Normal Bowel Sounds, Soft, No Tenderness Extremities: No Edema, Normal Pulses Current Medications: Current Medications Sig/Lana Start time Last Medication Dose Route Stop Time Status Admin Acetaminophen 650 MG Q4P PRN 10/03 2130 AC 10/06 PO 0533 Albuterol Sulfate 3 ML TID 10/03 INH 0804 Alprazolam 0.5 MG BID PRN 10/03 2200 AC 10/06 PO 10/10 2159 0910 Artificial Tears 2 GTT 4 TIMES/DAY 10/05 1058 AC 10/06 OPH 0946 Benzonatate 100 MG .STK-MED ONE 10/05 1945 DC PO 10/05 1946 Benzonatate 100 MG TID PRN 10/04 2015 AC 10/06 PO 0915 Bupropion HCl 100 MG QAM 10/04 1000 AC 10/06 PO 0841 Digoxin 0.125 MG 1700 10/04 1700 AC 10/05 PO 1700 Diltiazem HCl 240 MG BID 10/03 2200 AC 10/06 PO 0840 Docusate Sodium 200 MG QPM 10/03 2200 AC 10/05 PO 2153 Ezetimibe 10 MG QPM 10/03 2200 AC 10/05 PO 2153 Ferrous Sulfate 325 MG TID 10/03 2200 AC 10/06 PO 0841 Furosemide 40 MG BID 10/03 2200 AC 10/06 PO 0841 Guaifenesin 600 MG DAILY 10/04 1000 AC 10/06 PO 0841 Hydromorphone HCl 2 MG Q6P PRN 10/03 2345 AC 10/06 IV 0913 Levothyroxine Sodium 0.1 MG DAILY AC 10/04 0700 AC 10/06 PO 0632 Losartan Potassium 50 MG DAILY 10/04 1000 AC 10/06 PO 0841 Melatonin 5 MG AT BEDTIME 10/03 2345 AC 10/05 PO 2153 Methylprednisolone 40 MG Q12 10/04 2200 DC 10/05 IV 0843 Montelukast Sodium 10 MG DAILY 10/04 1000 AC 10/06 PO 0841 Nitroglycerin 0.6 MG DAILY 10/04 1000 AC 10/06 TOP 0842 Ondansetron HCl 4 MG ONCE ONE 10/05 1100 DC 10/05 IV 10/05 1101 1104 Pantoprazole Sodium 40 MG DAILY 10/04 1000 AC 10/06 IV 0844 Phenylephrine HCl 1 MAX Q6P PRN 10/05 194 AC [place] Polyethylene Glycol 17 GM DAILY PRN 10/05 1100 AC 10/05 PO 1934 Pravastatin Sodium 40 MG QPM 10/03 2200 AC 10/05 PO 2153 Prednisone 40 MG DAILY 10/06 1000 AC 10/06 PO 10/07 1001 0841 Ramelteon 8 MG ONCE PRN 10/06 0130 AC 10/06 PO 0140 Rivaroxaban 20 MG DAILY 10/05 1000 AC 10/06 PO 0842 Sertraline HCl 200 MG DAILY 10/04 1000 AC 10/06 PO 0841 Tiotropium [place] 1 PUF DAILY 01/12 1000 AC 10/06 INH 0842 Last 24 Hrs of Lab/Wan Results Last 24 Hrs of Labs/Mics: Laboratory Tests 10/06/17 0641: Anion Gap 12, Estimated GFR 55 L, Glucose 89, Calcium 9.2, Phosphorus 3.9, Magnesium 1.8, Total Bilirubin 0.1 L, AST 22, ALT 33, Albumin 3.4 L, CBC w Diff NO MAN DIFF REQ, RBC 3.23 L, MCV 87.3, MCH 28.0, RDW 17.4 H, MPV 5.9 L, Gran % 82.9 H, Lymphocytes % 8.4 L, Monocytes % 8.7, Eosinophils % 0, Basophils % 0, Absolute Granulocytes 13.4 H, Absolute Lymphocytes 1.4, Absolute Monocytes 1.4 H, Absolute Eosinophils 0, Absolute Basophils 0, PUBS MCHC 32.0 L Assessment/Plan Assessment: Ms. 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 Acute hypoxic respiratory failure most likely 2/2 COPD She was given IV Ceftazadime due to her history of Pseudomonas PNA. She had leukocytosis without bandemia. CT chest demonstrated waxing and waning of the bilateral airspace disease, pneumonia and emphysematous changes. Repeat chest x- ray this morning shows no acute changes. * Prednisone 40 mg daily (from 10/06/2017), Patient had received Solumederol 10/05. * Follow off antibiotics Appreciate pulmonology recommendations A.fib currently on Xarelto for 6 weeks s/p a watchman implant * Cardiology recommendations appreciated Chronic anemia s/p 3 prbcs Patient had an endoscopy on 10/04/2017, no active bleeding. * Monitor H&H, goal > 8, transfuse if necessary * GI recommendations appreciated DVT ppx: ALPS. Xaerlto to be resumed today. Problem List: 1. COPD Pain Ratin Pain Location: none Pain Goal: Remain pain free Pain Plan: see a/p Tomorrow's Labs & Rationales: none
--- NOTE | 2017-10-06 12:23 | PN- Pulmonary ---
Subjective HPI/Critical Care Issues: No ovneright events. She has no CP or SOB. Pain is well controlled. Complaining of constipation, but hasn't been eating much. Review of Systems Constitutional: Reports: no symptoms. EENTM: Reports: no symptoms. Cardiovascular: Reports: no symptoms. Respiratory: Reports: no symptoms. Gastrointestinal: Reports: see HPI. Genitourinary: Reports: no symptoms. Musculoskeletal: Reports: no symptoms. Skin: Reports: no symptoms. Neurological/Psychological: Reports: no symptoms. Hematologic/Endocrine: Reports: no symptoms. Immunologic/Allergic: Reports: no symptoms. Objective Current Medications: Current Medications Sig/Lana Start time Last Medication Dose Route Stop Time Status Admin Acetaminophen 650 MG Q4P PRN 10/03 2130 AC 10/06 PO 0533 Albuterol Sulfate 3 ML TID 10/03 2199 AC 10/06 INH 0804 Alprazolam 0.5 MG BID PRN 10/03 220 AC 10/06 PO 10/10 2159 0910 Artificial Tears 2 GTT 4 TIMES/DAY 10/05 1058 AC 10/06 OPH 0946 Benzonatate 100 MG .STK-MED ONE 10/06 0258 DC PO 10/06 0259 Benzonatate 100 MG .STK-MED ONE 10/05 1945 DC PO 10/05 1946 Benzonatate 100 MG TID PRN 10/04 2014 AC 10/06 PO 0915 Bupropion HCl 100 MG QAM 10/04 1000 AC 10/06 PO 0841 Digoxin 0.125 MG 1700 10/04 1700 AC 10/05 PO 1700 Diltiazem HCl 240 MG BID 10/03 2200 AC 10/06 PO 0840 Docusate Sodium 200 MG QPM 10/03 2200 AC 10/05 PO 2153 Ezetimibe 10 MG QPM 10/03 2200 AC 10/05 PO 2153 Ferrous Sulfate 325 MG TID 10/03 220 AC 10/06 PO 0841 Furosemide 40 MG BID 10/03 2199 AC 10/06 PO 0841 Guaifenesin 600 MG DAILY 10/04 1000 AC 10/06 PO 0841 Hydromorphone HCl 2 MG Q6P PRN 10/03 2345 AC 10/06 IV 0913 Levothyroxine Sodium 0.1 MG DAILY AC 10/04 0700 AC 10/06 PO 0632 Losartan Potassium 50 MG DAILY 10/04 1000 AC 10/06 PO 0841 Melatonin 5 MG AT BEDTIME 10/03 2345 AC 10/05 PO 2153 Montelukast Sodium 10 MG DAILY 10/04 1000 AC 10/06 PO 0841 Nitroglycerin 0.6 MG DAILY 10/04 1000 AC 10/06 TOP 0842 Pantoprazole Sodium 40 MG DAILY 10/04 1000 AC 10/06 IV 0844 Phenylephrine HCl 1 MAX Q6P PRN 10/05 1945 AC [place] Polyethylene Glycol 17 GM DAILY PRN 10/05 1100 AC 10/05 PO 1934 Pravastatin Sodium 40 MG QPM 10/03 2200 AC 10/05 PO 2153 Prednisone 40 MG DAILY 10/06 1000 AC 10/06 PO 10/07 1001 0841 Ramelteon 8 MG ONCE PRN 10/06 0130 AC 10/06 PO 0140 Rivaroxaban 20 MG DAILY 10/05 1000 AC 10/06 PO 0842 Sertraline HCl 200 MG DAILY 10/04 1000 AC 10/06 PO 0841 Tiotropium [place] 1 PUF DAILY 10/04 1000 AC 10/06 INH 0842 Vital Signs & I&O Last 24 Hrs of Vitals and I&O: Vital Signs Date Time Temp Pulse Resp B/P B/P Pulse O2 O2 Flow FiO2 Mean Ox Delivery Rate 10/06 0841 71 124/68 10/06 0836 95 Nasal 2.0L Cannula 10/06 0800 96 Nasal 2.0L Cannula 10/06 0709 97.8 71 18 124/68 100 Nasal Cannula 10/06 0000 100 Nasal 2.0L Cannula 10/05 2227 97.6 103 24 140/62 97 Nasal Cannula 10/05 2048 99 Nasal 2.0L Cannula 10/05 1700 92 124/70 10/05 1600 Nasal 2.0L Cannula Intake & Output 10/06 1600 10/06 0800 10/06 0000 Intake Total 120 450 Output Total Balance 120 450 Intake, IV 20 Intake, Oral 100 450 Number 0 Bowel Movements Patient 118 lb Weight Weight Bed scale Measurement Method Laboratory Tests 10/06 10/05 0641 0355 Chemistry Sodium (137 - 145 mmol/L) 137 137 Potassium (3.5 - 5.1 mmol/L) 4.1 4.0 Chloride (98 - 107 mmol/L) 91 L 93 L Carbon Dioxide (22 - 30 mmol/L) 33 H 27 Anion Gap (5 - 16) 12 17 H BUN (7 - 17 mg/dL) 25 H 24 H Creatinine (0.5 - 1.0 mg/dL) 1.0 0.9 Estimated GFR (>60 ml/min) 55 L > 60 Glucose (65 - 99 mg/dL) 89 137 H Calcium (8.4 - 10.2 mg/dL) 9.2 9.4 Phosphorus (2.5 - 4.5 mg/dL) 3.9 4.3 Magnesium (1.6 - 2.3 mg/dL) 1.8 1.9 Total Bilirubin (0.2 - 1.3 mg/dL) 0.1 L 0.4 AST (14 - 36 U/L) 22 23 ALT (9 - 52 U/L) 33 37 Albumin (3.5 - 5.0 g/dL) 3.4 L 3.9 Hematology CBC w Diff NO MAN DIFF REQ MAN DIFF ORDERED WBC (4.8 - 10.8 /CUMM) 16.1 H 16.6 H RBC (4.20 - 5.40 /CUMM) 3.23 L 3.28 L Hgb (12.0 - 16.0 G/DL) 9.0 L 9.3 L Hct (37 - 47 %) 28.2 L 28.3 L MCV (81.0 - 99.0 FL) 87.3 86.2 MCH (27.0 - 31.0 PG) 28.0 28.4 RDW (11.5 - 14.5 %) 17.4 H 16.9 H Plt Count (130 - 400 /CUMM) 813 H 723 H MPV (7.4 - 10.4 FL) 5.9 L 6.1 L Gran % (42.2 - 75.2 %) 82.9 H 94.7 H Lymphocytes % (20.5 - 51.1 %) 8.4 L 3.6 L Monocytes % (1.7 - 9.3 %) 8.7 1.7 Eosinophils % (0 - 5 %) 0 0 Basophils % (0.0 - 2.0 %) 0 0 Absolute Granulocytes (1.4 - 6.5 /CUMM) 13.4 H 15.7 H Absolute Lymphocytes (1.2 - 3.4 /CUMM) 1.4 0.6 L Absolute Monocytes (0.10 - 0.60 /CUMM) 1.4 H 0.3 Absolute Eosinophils (0.0 - 0.7 /CUMM) 0 0 Absolute Basophils (0.0 - 0.2 /CUMM) 0 0 Platelet Estimate (ADEQUATE) INCREASED Polychromasia 1+ Hypochromic-Microcytic 2+ Anisocytosis 1+ PUBS MCHC (33.0 - 37.0 G/DL) 32.0 L 33.0 Microbiology Date/Time Procedure - Status Source Growth 10/04 1105 Urine Culture - COMP URINE ROUT 10/04 905 Blood Culture - RES BLOOD 10/04 399 Blood Culture - RES BLOOD 10/03 2134 Surveillance Culture - COMP UPPER RESP 10/03 2134 Surveillance Culture - COMP GI 10/03 2035 Respiratory Culture - CAN LOWER RESP Cancelled: NO SPUTUM COLLECTED 10/03 2035 Gram Stain - CAN LOWER RESP Cancelled: NO SPUTUM COLLECTED Impression/Plan Impression/Plan Impression/Plan: General Appearance Alert, Oriented X3, Cooperative, No Acute Distress Skin No Breakdown, No Significant Lesion Skin Temp/Moisture Exam: Warm/Dry Sepsis Skin Exam (color): Pale HEENT PERRLA, EOMI, Mucous Membr. moist/pink, pallor Neck Supple, No JVD, No thryomegaly Lymphatic Axillary nl, Cervical nl Cardiovascular irregularly irregular Lungs b/l crackles Abdomen Normal Bowel Sounds, Soft, No Tenderness Extremities No Edema Ms. Escobar is a 67 yo f with PMH significant for A.fib currently on Xarelto for 6 weeks s/p a watchman implant, COPD on home oxygen of 2L [place], chronic GI bleeding and iron deficiency anemia 2/2 to AVM malformation s/p balloon enteroscopy with cauterization who presents with worsening SOB and fatigue ANemia blood loss Afib s/p watchman device COPD with mild wheezing Waxing and waning of airspace disease REC watch crit Transfuse for hgb less than 8 PO prednisone and taper Observe off abx Anticoag etc per cardio and gi Watch blood work etc DC soon in the next day
[2017-10-06 14:44] VITALS: BP 130/60
--- NOTE | 2017-10-06 15:21 | PN- Cardiology ---
Subjective Subjective: Stable today with no new symptoms. No evidence of active bleeding. Objective Vital Signs and I&Os Vital Signs Date Time Temp Pulse Resp B/P B/P Pulse O2 O2 Flow FiO2 Mean Ox Delivery Rate 10/06 1444 98.3 74 20 130/60 99 Nasal 2.0L Cannula 10/06 0841 71 124/68 10/06 0836 95 Nasal 2.0L Cannula 10/06 0800 96 Nasal 2.0L Cannula 10/06 0709 97.8 71 18 124/68 100 Nasal Cannula 10/06 0000 100 Nasal 2.0L Cannula 10/05 2227 97.6 103 24 140/62 97 Nasal Cannula 10/05 2048 99 Nasal 2.0L Cannula 10/05 1700 92 124/70 10/05 1600 Nasal 2.0L Cannula Intake & Output 10/06 1600 10/06 0800 10/06 0000 10/05 1600 10/05 0800 10/05 0000 Intake Total 450 120 450 980 550 850 Output Total 1200 1700 500 Balance 450 120 450 -220 -1150 350 Intake, Blood 350 Product Intake, IV 20 30 Intake, Oral 450 100 450 950 550 500 Number 0 0 0 Bowel Movements Output, Urine 1200 1700 500 Patient 118 lb 111 lb Weight Weight Bed scale Bed scale Measurement Method Physical Exam: General Appearance Alert, Oriented X3, Cooperative, No Acute Distress Skin normal HEENT PERRLA, EOMI, Mucous Membr. moist/pink, pallor Neck Supple, No JVD, No thryomegaly, carotids normal bilaterally Lymphatic Axillary nl, Cervical nl Cardiovascular irregularly irregular, S1, S2, 1/6 systolic murmur Lungs bilateral rhonchi Abdomen Normal Bowel Sounds, Soft, No Tenderness Extremities No Edema Current Medications: Current Medications Sig/Lana Start time Last Medication Dose Route Stop Time Status Admin Acetaminophen 650 MG .STK-MED ONE 10/06 0529 DC PO 10/06 0530 Acetaminophen 650 MG Q4P PRN 10/03 PO 0533 Albuterol Sulfate 3 ML TID 10/03 INH 1349 Alprazolam 0.5 MG BID PRN 10/03 2199 AC 10/06 PO 10/10 2159 0910 Artificial Tears 2 GTT 4 TIMES/DAY 10/05 1058 10/06 OPH 1332 Benzonatate 100 MG .STK-MED ONE 10/06 0258 DC PO 10/06 0259 Benzonatate 100 MG .STK-MED ONE 10/05 1944 DC PO 10/05 194 Benzonatate 100 MG TID PRN 10/04 2015 AC 10/06 PO 0915 Bupropion HCl 100 MG QAM 10/04 1000 AC 10/06 PO 0841 Digoxin 0.125 MG 1700 10/04 1700 AC 10/05 PO 1700 Diltiazem HCl 240 MG BID 10/03 2200 AC 10/06 PO 0840 Docusate Sodium 200 MG QPM 10/03 2200 AC 10/05 PO 2153 Ezetimibe 10 MG QPM 10/03 2200 AC 10/05 PO 2153 Ferrous Sulfate 325 MG TID 10/03 2200 AC 10/06 PO 0841 Furosemide 40 MG BID 10/03 2200 AC 10/06 PO 0841 Guaifenesin 600 MG DAILY 10/04 1000 AC 10/06 PO 0841 Hydromorphone HCl 2 MG Q6P PRN 10/03 2345 AC 10/06 IV 0913 Levothyroxine Sodium 0.1 MG DAILY AC 10/04 0700 AC 10/06 PO 0632 Losartan Potassium 50 MG DAILY 10/04 1000 AC 10/06 PO 0841 Melatonin 5 MG AT BEDTIME 10/03 2345 AC 10/05 PO 2153 Montelukast Sodium 10 MG DAILY 10/04 1000 AC 10/06 PO 0841 Nitroglycerin 0.6 MG DAILY 10/04 1000 AC 10/06 TOP 0842 Pantoprazole Sodium 40 MG DAILY 10/04 1000 AC 10/06 IV 0844 Phenylephrine HCl 1 MAX Q6P PRN 10/05 1944 AC [place] Polyethylene Glycol 17 GM DAILY PRN 10/05 1100 AC 10/05 PO 1934 Pravastatin Sodium 40 MG QPM 10/03 2200 AC 10/05 PO 2153 Prednisone 40 MG DAILY 10/06 1000 AC 10/06 PO 10/07 1001 0841 Ramelteon 8 MG ONCE PRN 10/06 0130 AC 10/06 PO 0140 Rivaroxaban 20 MG DAILY 10/05 1000 AC 10/06 PO 0842 Sertraline HCl 200 MG DAILY 10/04 1000 AC 10/06 PO 0841 Tiotropium [place] 1 PUF DAILY 10/04 1000 AC 10/06 INH 0842 Results Last 48 Hrs of Labs/Mics: Laboratory Tests 10/06/17 0641: Anion Gap 12, Estimated GFR 55 L, Glucose 89, Calcium 9.2, Phosphorus 3.9, Magnesium 1.8, Total Bilirubin 0.1 L, AST 22, ALT 33, Albumin 3.4 L, CBC w Diff NO MAN DIFF REQ, RBC 3.23 L, MCV 87.3, MCH 28.0, RDW 17.4 H, MPV 5.9 L, Gran % 82.9 H, Lymphocytes % 8.4 L, Monocytes % 8.7, Eosinophils % 0, Basophils % 0, Absolute Granulocytes 13.4 H, Absolute Lymphocytes 1.4, Absolute Monocytes 1.4 H, Absolute Eosinophils 0, Absolute Basophils 0, PUBS MCHC 32.0 L 10/05/17 0355: Anion Gap 17 H, Estimated GFR > 60, Glucose 137 H, Calcium 9.4, Phosphorus 4.3 , Magnesium 1.9, Total Bilirubin 0.4, AST 23, ALT 37, Albumin 3.9, CBC w Diff MAN DIFF ORDERED, RBC 3.28 L, MCV 86.2, MCH 28.4, RDW 16.9 H, MPV 6.1 L, Gran % 94.7 H, Lymphocytes % 3.6 L, Monocytes % 1.7, Eosinophils % 0, Basophils % 0 , Absolute Granulocytes 15.7 H, Absolute Lymphocytes 0.6 L, Absolute Monocytes 0.3, Absolute Eosinophils 0, Absolute Basophils 0, Platelet Estimate INCREASED, Polychromasia 1+, Hypochromic-Microcytic 2+, Anisocytosis 1+, PUBS MCHC 33.0 Assessment/Plan Assessment/Plan Assessment: 1. Atrial fibrillation, status post atrial watchman appendage occluder device 2. GI bleeding 3. Relative tachycardia 4. Anemia 5. Leukocytosis Recommendations: -Continue anticoagulation at present dose -Continue current rate control medications -Continue to monitor hemoglobin/hematocrit -Monitor on [address] [place] [address] telemetry for another 24 hours. -Further plans in the morning. Continue telemetry? Yes
[2017-10-06 23:09] VITALS: BP 130/64
[2017-10-07 06:22] VITALS: BP 132/80
--- NOTE | 2017-10-07 07:40 | PN- Housestaff ---
See Addendum Subjective Follow-up For: Acute anemia, COPD Tele-Events Since Last Visit: Afib, 70-130 Subjective: No overnight events. Her breathng has improved. No CP. Asking for pain meds to go home with for her arthritis pain. Review of Systems Constitutional: Reports: no symptoms. EENTM: Reports: no symptoms. Cardiovascular: Reports: no symptoms. Respiratory: Reports: see HPI. Gastrointestinal: Reports: no symptoms. Genitourinary: Reports: no symptoms. Musculoskeletal: Reports: see HPI. Skin: Reports: no symptoms. Neurological/Psychological: Reports: no symptoms. Hematologic/Endocrine: Reports: no symptoms. Immunologic/Allergic: Reports: no symptoms. Objective Last 24 Hrs of Vital Signs/I&O Vital Signs Date Time Temp Pulse Resp B/P B/P Pulse O2 O2 Flow FiO2 Mean Ox Delivery Rate 10/07 0622 98.1 78 20 132/80 96 Nasal 2.0L Cannula 10/07 0000 Nasal 2.0L Cannula 10/06 2309 98.0 116 20 130/64 96 Nasal Cannula 10/06 1900 97 Nasal 2.0L Cannula 10/06 1624 74 130/60 10/06 1600 Nasal 2.0L Cannula 10/06 1444 98.3 74 20 130/60 99 Nasal 2.0L Cannula 10/06 0841 71 124/68 10/06 0836 95 Nasal 2.0L Cannula 10/06 0800 96 Nasal 2.0L Cannula Intake & Output 10/07 0800 10/07 0000 10/06 1600 Intake Total 205 1291 450 Output Total Balance 205 1291 450 Intake, IV 5 11 Intake, Oral 200 1280 450 Physical Exam General Appearance: Alert, Oriented X3, Cooperative, No Acute Distress Cardiovascular: irregular Lungs: modwerate wheezing bilaterally Abdomen: Normal Bowel Sounds, Soft, No Tenderness Extremities: No Edema, Normal Pulses Current Medications: Current Medications Sig/Lana Start time Last Medication Dose Route Stop Time Status Admin Acetaminophen 650 MG Q4P PRN 10/03 2129 AC 10/06 PO 0533 Albuterol Sulfate 3 ML TID 10/03 2199 AC 10/06 INH 1900 Alprazolam 0.5 MG BID PRN 10/03 2199 AC 10/06 PO 10/10 2159 2132 Artificial Tears 2 GTT 4 TIMES/DAY 10/05 1058 AC 10/06 OPH 2303 Benzonatate 100 MG TID PRN 10/04 2014 AC 10/06 PO 2132 Bupropion HCl 100 MG QAM 10/04 1000 AC 10/06 PO 0841 Digoxin 0.125 MG 1700 10/04 1700 AC 10/06 PO 1624 Diltiazem HCl 240 MG BID 10/03 220 AC 10/06 PO 2132 Docusate Sodium 200 MG QPM 10/03 2200 AC 10/06 PO 2133 Ezetimibe 10 MG QPM 10/03 2200 AC 10/06 PO 2133 Ferrous Sulfate 325 MG TID 10/03 220 AC 10/06 PO 2133 Furosemide 40 MG BID 10/03 220 AC 10/06 PO 0841 Guaifenesin 600 MG DAILY 10/04 1000 AC 10/06 PO 0841 Hydromorphone HCl 2 MG Q6P PRN 10/03 2345 AC 10/07 IV 0514 Levothyroxine Sodium 0.1 MG DAILY AC 10/04 0700 AC 10/07 PO 0514 Losartan Potassium 50 MG DAILY 10/04 1000 AC 10/06 PO 0841 Melatonin 5 MG AT BEDTIME 10/03 2345 AC 10/06 PO 2133 Montelukast Sodium 10 MG DAILY 10/04 1000 AC 10/06 PO 0841 Nitroglycerin 0.6 MG DAILY 10/04 1000 AC 10/06 TOP 0842 Pantoprazole Sodium 40 MG DAILY 10/04 1000 AC 10/06 IV 0844 Phenylephrine HCl 1 MAX Q6P PRN 10/05 1945 AC [place] Polyethylene Glycol 17 GM DAILY PRN 10/05 1100 AC 10/06 PO 1908 Pravastatin Sodium 40 MG QPM 10/03 2200 AC 10/06 PO 2131 Prednisone 40 MG DAILY 10/06 1000 AC 10/06 PO 10/07 1001 0841 Ramelteon 8 MG ONCE PRN 10/06 0130 AC 10/06 PO 2133 Rivaroxaban 20 MG DAILY 10/05 1000 AC 10/06 PO 0842 Sertraline HCl 200 MG DAILY 10/04 1000 AC 10/06 PO 0841 Tiotropium [place] 1 PUF DAILY 10/04 1000 AC 10/06 INH 0842 Last 24 Hrs of Lab/Wan Results Last 24 Hrs of Labs/Mics: Laboratory Tests 10/07/17 0649: CBC w Diff Pending, WBC Pending, RBC Pending, Hgb Pending, Hct Pending, MCV Pending, MCH Pending, RDW Pending, Plt Count Pending, MPV Pending, PUBS MCHC Pending Assessment/Plan Assessment: Ms. Escobar is a 67 yo f with PMH significant for A.fib currently on Xarelto for 6 weeks s/p a watchman implant, COPD on home oxygen of 2L [place], chronic GI bleeding and iron deficiency anemia 2/2 to AVM malformation with cauterization here with acute on chronic anemia and COPD. Problem list: 1. Acute by hypoxic respiratory failure 2. COPD exacerbation 3. Acute anemia #Acute hypoxic respiratory failure most likely 2/2 COPD: She was given IV Ceftazadime due to her history of Pseudomonas PNA. She had leukocytosis without bandemia. CT chest demonstrated waxing and waning of the bilateral airspace disease, pneumonia and emphysematous changes. Repeat chest x-ray this morning shows no acute changes. Her breathing is subsequently improved. She is still having some wheezing though. -Methylprednisone IV 40 mg twice a day -Appreciate pulmonology recommendations -[facility] nebs -Benzonatate #Acute anemia: Patient is status post watchman and plate needs were approximated and for 6 weeks. Her iron is high. She is status post 3 units of PRBCs. Endoscopy revealed no active bleeding. Hemoglobin has subsequently been stable. -Hemoglobin goal greater than 8 -Appreciate GI recommendations -Avoid NSAIDs -Continue omeprazole #Chronic medical problems -Continue home , phenylephrine, polyethylene glycol, artificial tears, rivaroxaban, digoxin, tiotropium, sertraline, omeprazole, guaifenesin, bupropion , losartan, levothyroxine, melatonin, pravastatin, furosemide, iron, ezetimibe, docusate, diltiazem, alprazolam, albuterol DVT prophylaxis with rivaroxaban Heart healthy diet Full code Problem List: 1. COPD Pain Ratin Pain Location: knee Pain Goal: Remain pain free Pain Plan: see a/p Tomorrow's Labs & Rationales: cbc
[2017-10-07 09:25] LABS: ABSOLUTE BASOPHIL COUNT 0 /CUMM (0.0-0.2); ABSOLUTE EOSINOPHIL COUNT 0.1 /CUMM (0.0-0.7); ABSOLUTE GRANULOCYTE CT 10.4 /CUMM (1.4-6.5); ABSOLUTE LYMPH COUNT 1.7 /CUMM (1.2-3.4); ABSOLUTE MONOCYTE COUNT 1.1 /CUMM (0.10-0.60); BASOPHIL % 0.1 % (0.0-2.0); EOSINOPHIL % 0.4 % (0-5); GRANULOCYTE % 78.3 % (42.2-75.2); HEMATOCRIT 28.1 % (37-47); MEAN CORPUSCULAR HGB 28.1 PG (27.0-31.0); MEAN CORPUSCULAR HGB CONC 32.1 G/DL (33.0-37.0); MEAN CORPUSCULAR VOLUME 87.5 FL (81.0-99.0); MEAN PLATELET VOLUME 5.8 FL (7.4-10.4); RED BLOOD CELL CT 3.22 /CUMM (4.20-5.40); WHITE BLOOD CELL COUNT 13.3 /CUMM (4.8-10.8)
[2017-10-07 10:23] LABS: PLATELET COUNT 808 /CUMM (130-400)
--- NOTE | 2017-10-07 10:55 | PN- Housestaff ---
Subjective Follow-up For: Acute anemia, COPD Objective Last 24 Hrs of Vital Signs/I&O Vital Signs Date Time Temp Pulse Resp B/P B/P Pulse O2 O2 Flow FiO2 Mean Ox Delivery Rate 10/07 1031 98.1 78 18 132/80 10/07 0826 99 Nasal 2.0L Cannula 10/07 0622 98.1 78 20 132/80 96 Nasal 2.0L Cannula 10/07 0000 Nasal 2.0L Cannula 10/06 2309 98.0 116 20 130/64 96 Nasal Cannula 10/06 1900 97 Nasal 2.0L Cannula 10/06 1624 74 130/60 10/06 1600 Nasal 2.0L Cannula 10/06 1444 98.3 74 20 130/60 99 Nasal 2.0L Cannula Intake & Output 10/07 1600 10/07 0800 10/07 0000 Intake Total 205 1291 Output Total Balance 205 1291 Intake, IV 5 11 Intake, Oral 200 1280 Patient 123 lb Weight Weight Chair scale Measurement Method Assessment/Plan Assessment: Ms. 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 Acute hypoxic respiratory failure most likely 2/2 COPD She was given IV Ceftazadime due to her history of Pseudomonas PNA. She had leukocytosis without bandemia. CT chest demonstrated waxing and waning of the bilateral airspace disease, pneumonia and emphysematous changes. Repeat chest x- ray this morning shows no acute changes. * Prednisone 40 mg daily (from 10/06/2017), Patient had received Solumederol 10/05. * Follow off antibiotics Appreciate pulmonology recommendations A.fib currently on Xarelto for 6 weeks s/p a watchman implant * Cardiology recommendations appreciated Chronic anemia s/p 3 prbcs Patient had an endoscopy on 10/04/2017, no active bleeding. * Monitor H&H, goal > 8, transfuse if necessary * GI recommendations appreciated DVT ppx: ALPS. Xaerlto to be resumed today.
--- NOTE | 2017-10-07 13:41 | PN- Pulmonary ---
Subjective HPI/Critical Care Issues: pt seen and examined wheezing and some dyspnea Objective Current Medications: Current Medications Sig/Lana Start time Last Medication Dose Route Stop Time Status Admin Acetaminophen 650 MG Q4P PRN 10/03 2130 AC 10/06 PO 0533 Albuterol Sulfate 3 ML TID 10/03 220 AC 10/07 INH 1333 Alprazolam 0.5 MG BID PRN 10/03 220 AC 10/07 PO 10/10 2159 1045 Artificial Tears 2 GTT 4 TIMES/DAY 10/05 1058 AC 10/07 OPH 1032 Benzonatate 100 MG TID PRN 10/04 2015 AC 10/06 PO 2132 Bupropion HCl 100 MG QAM 10/04 1000 AC 10/07 PO 1032 Digoxin 0.125 MG 1700 10/04 1700 AC 10/06 PO 1624 Diltiazem HCl 240 MG BID 10/03 220 AC 10/07 PO 1031 Docusate Sodium 200 MG QPM 10/03 2200 AC 10/06 PO 2133 Ezetimibe 10 MG QPM 10/03 2200 AC 10/06 PO 2133 Ferrous Sulfate 325 MG TID 10/03 220 AC 10/07 PO 1031 Furosemide 40 MG BID 10/03 2200 AC 10/07 PO 1031 Guaifenesin 600 MG DAILY 10/04 1000 AC 10/07 PO 1031 Hydromorphone HCl 2 MG Q6P PRN 10/07 1145 AC 10/07 IV 1158 Hydromorphone HCl 2 MG Q6P PRN 10/03 2345 DC 10/07 IV 0514 Levothyroxine Sodium 0.1 MG DAILY AC 10/04 0700 AC 10/07 PO 0514 Losartan Potassium 50 MG DAILY 10/04 1000 AC 10/07 PO 1031 Melatonin 5 MG AT BEDTIME 10/03 2345 AC 10/06 PO 2133 Methylprednisolone 40 MG Q12 10/07 1000 AC 10/07 IV 1030 Montelukast Sodium 10 MG DAILY 10/04 1000 AC 10/07 PO 1031 Nitroglycerin 0.6 MG DAILY 10/04 1000 AC 10/07 TOP 1032 Omeprazole 40 MG DAILY AC 10/07 1103 AC PO Oxycodone HCl 5 MG Q6 PRN 10/07 0915 DC PO Pantoprazole Sodium 40 MG DAILY 10/04 1000 DC 10/07 IV 1030 Phenylephrine HCl 1 MAX Q6P PRN 10/05 1945 AC NC Polyethylene Glycol 17 GM DAILY PRN 10/05 1100 AC 10/06 PO 1908 Pravastatin Sodium 40 MG QPM 10/03 2200 AC 10/06 PO 2131 Prednisone 40 MG DAILY 10/06 1000 DC 10/06 PO 10/07 1001 0841 Ramelteon 8 MG ONCE PRN 10/06 0130 AC 10/06 PO 2133 Rivaroxaban 20 MG DAILY 10/05 1000 AC 10/07 PO 1031 Sertraline HCl 200 MG DAILY 10/04 1000 AC 10/07 PO 1031 Tiotropium [place] 1 PUF DAILY 10/04 1000 AC 10/07 INH 1032 Vital Signs & I&O Last 24 Hrs of Vitals and I&O: Vital Signs Date Time Temp Pulse Resp B/P B/P Pulse O2 O2 Flow FiO2 Mean Ox Delivery Rate 10/07 1031 98.1 78 18 132/80 10/07 0826 99 Nasal 2.0L Cannula 10/07 0622 98.1 78 20 132/80 96 Nasal 2.0L Cannula 10/07 0000 Nasal 2.0L Cannula 10/06 2309 98.0 116 20 130/64 96 Nasal Cannula 10/06 1900 97 Nasal 2.0L Cannula 10/06 1624 74 130/60 10/06 1600 Nasal 2.0L Cannula 10/06 1444 98.3 74 20 130/60 99 Nasal 2.0L Cannula Intake & Output 10/07 1600 10/07 0800 10/07 0000 Intake Total 205 1291 Output Total Balance 205 1291 Intake, IV 5 11 Intake, Oral 200 1280 Patient 123 lb Weight Weight Chair scale Measurement Method Exam Other Physical Findings: awake and alert wheezing bilaterally no leg edema s1, s2 Results Last 24 Hrs of Lab Results: Laboratory Tests 10/07/17 0649: CBC w Diff NO MAN DIFF REQ, RBC 3.22 L, MCV 87.5, MCH 28.1, RDW 17.0 H, MPV 5.8 L, Gran % 78.3 H, Lymphocytes % 12.8 L, Monocytes % 8.4, Eosinophils % 0.4, Basophils % 0.1, Absolute Granulocytes 10.4 H, Absolute Lymphocytes 1.7, Absolute Monocytes 1.1 H, Absolute Eosinophils 0.1, Absolute Basophils 0, PUBS MCHC 32.1 L Impression/Plan Impression/Plan Impression/Plan: Impression 67 year old woman * stabilized acute blood loss anemia likely secondary to AVM's * a.fib s/p Watchman device * possible exacerbation of COPD * waxing/waning airspace disease, better on right, worse on left - hx of pseudomonas infection Plan -dc prednisone -solumedrol 40mg iv q12h with a plan to taper to po tomorrow -ambulate -evaluate for dc plan for tomorrow DVT prophylaxis at all times
[2017-10-07 14:55] VITALS: BP 138/64
--- NOTE | 2017-10-07 21:13 | PN- Cardiology ---
Subjective Subjective: * Breathing is much improved. She feels improved. * atrial fibrillation with improved heart rate. * stable H/H Objective Vital Signs and I&Os Vital Signs Date Time Temp Pulse Resp B/P B/P Pulse O2 O2 Flow FiO2 Mean Ox Delivery Rate 10/07 1930 99 Nasal 2.0L Cannula 10/07 1643 86 138/64 10/07 1629 96 Nasal 2.0L Cannula 10/07 1455 97.5 86 20 138/64 100 Nasal 2.0L Cannula 10/07 1031 98.1 78 18 132/80 10/07 0826 99 Nasal 2.0L Cannula 10/07 0622 98.1 78 20 132/80 96 Nasal 2.0L Cannula 10/07 0000 Nasal 2.0L Cannula 10/06 2309 98.0 116 20 130/64 96 Nasal Cannula Intake & Output 10/07 1600 10/07 0800 10/07 0000 10/06 1600 10/06 0800 10/06 0000 Intake Total 552 257 8360 450 120 450 Output Total Balance 820 906 8477 450 120 450 Intake, IV 5 11 20 Intake, Oral 569 838 5474 450 100 450 Number 0 Bowel Movements Patient 123 lb 118 lb Weight Weight Chair scale Bed scale Measurement Method Physical Exam: General: WD/WN female in NAD; alert and oriented x 3 HEENT: NC/AT, PERRL, EOMI Neck: +ve JVD, no carotid bruit Heart: irregularly irregular Lungs: decreased air movement Abdomen: soft, NT, +ve bowel sounds Extremities: no edema Assessment/Plan Assessment/Plan * Patient is doing much better. Continue chronic anticoagulation with Xarelto as previously instructed and follow H/H. Okay for discharge from a cardiac standpoint with follow up in the office. No other medication changes. Continue telemetry? No
[2017-10-07 22:00] VITALS: BP 160/72
[2017-10-08 06:57] VITALS: BP 158/72
--- NOTE | 2017-10-08 07:32 | PN- Housestaff ---
See Addendum Subjective Follow-up For: COPD Tele-Events Since Last Visit: Afib, 100-120 Subjective: No overnight events. She doesn't feel like her breathing is improving. Also complaining of constipation, some nausea, and abd pain. No CP. Requesting that her IV opioids be continued today. Review of Systems Constitutional: Reports: no symptoms. EENTM: Reports: no symptoms. Cardiovascular: Reports: no symptoms. Respiratory: Reports: see HPI. Gastrointestinal: Reports: see HPI. Genitourinary: Reports: no symptoms. Musculoskeletal: Reports: no symptoms. Skin: Reports: no symptoms. Neurological/Psychological: Reports: no symptoms. Hematologic/Endocrine: Reports: no symptoms. Immunologic/Allergic: Reports: no symptoms. Objective Last 24 Hrs of Vital Signs/I&O Vital Signs Date Time Temp Pulse Resp B/P B/P Pulse O2 O2 Flow FiO2 Mean Ox Delivery Rate 10/08 0657 98.5 111 18 158/72 96 Nasal Cannula 10/08 0000 Nasal 2.0L Cannula 10/07 2200 98.8 120 18 160/72 96 10/07 1930 99 Nasal 2.0L Cannula 10/07 1643 86 138/64 10/07 1629 96 Nasal 2.0L Cannula 10/07 1455 97.5 86 20 138/64 100 Nasal 2.0L Cannula 10/07 1031 98.1 78 18 132/80 10/07 0826 99 Nasal 2.0L Cannula Intake & Output 10/08 0800 10/08 0000 10/07 1600 Intake Total 150 200 850 Output Total Balance 150 200 850 Intake, Oral 150 200 850 Patient 123 lb Weight Weight Chair scale Measurement Method Physical Exam General Appearance: Alert, Oriented X3, Cooperative, No Acute Distress Cardiovascular: irregualr Lungs: moderate wheezing Abdomen: Normal Bowel Sounds, Soft, No Tenderness Current Medications: Current Medications Sig/Lana Start time Last Medication Dose Route Stop Time Status Admin Acetaminophen 650 MG .STK-MED ONE 10/07 1848 DC PO 10/07 184 Acetaminophen 650 MG Q4P PRN 10/03 2129 AC 10/07 PO 2058 Albuterol Sulfate 3 ML TID 10/03 2199 AC 10/07 INH 1333 Alprazolam 0.5 MG BID PRN 10/03 2199 AC 10/07 PO 10/10 2158 1045 Artificial Tears 2 GTT 4 TIMES/DAY 10/05 1058 AC 10/07 OPH 1458 Benzonatate 100 MG TID PRN 10/04 2015 AC 10/06 PO 2132 Bisacodyl 5 MG ONE ONE 10/08 0730 DC PO 10/08 0731 Bupropion HCl 100 MG QAM 10/04 1000 AC 10/07 PO 1032 Digoxin 0.125 MG 1700 10/04 1700 AC 10/07 PO 1643 Diltiazem HCl 240 MG BID 10/03 2200 AC 10/07 PO 205 Docusate Sodium 200 MG QPM 10/03 2200 AC 10/07 PO 210 Ezetimibe 10 MG QPM 10/03 2200 AC 10/07 PO 205 Ferrous Sulfate 325 MG TID 10/03 220 AC 10/07 PO 205 Furosemide 40 MG BID 10/03 220 AC 10/07 PO 1031 Guaifenesin 600 MG DAILY 10/04 1000 AC 10/07 PO 1031 Hydromorphone HCl 2 MG Q6P PRN 10/07 1145 AC 10/08 IV 0635 Hydromorphone HCl 2 MG Q6P PRN 10/03 2345 DC 10/07 IV 0514 Levothyroxine Sodium 0.1 MG DAILY AC 10/04 0700 AC 10/08 PO 0611 Losartan Potassium 50 MG DAILY 10/04 1000 AC 10/07 PO 1031 Melatonin 5 MG AT BEDTIME 10/03 2345 AC 10/07 PO 2057 Methylprednisolone 40 MG Q12 10/07 1000 AC 10/07 IV 2057 Montelukast Sodium 10 MG DAILY 10/04 1000 AC 10/07 PO 1031 Nitroglycerin 0.6 MG DAILY 10/04 1000 AC 10/07 TOP 1032 Omeprazole 40 MG DAILY AC 10/07 1103 AC 10/08 PO 0611 Oxycodone HCl 5 MG Q6 PRN 10/07 0915 DC PO Pantoprazole Sodium 40 MG DAILY 10/04 1000 DC 10/07 IV 1030 Phenylephrine HCl 1 MAX Q6P PRN 10/05 1945 AC [place] Polyethylene Glycol 17 GM DAILY PRN 10/05 1100 AC 10/07 PO 1457 Pravastatin Sodium 40 MG QPM 10/03 2200 AC 10/07 PO 2057 Prednisone 40 MG DAILY 10/06 1000 DC 10/06 PO 10/07 1001 0841 Ramelteon 8 MG ONCE PRN 10/06 0130 AC 10/06 PO 2133 Rivaroxaban 20 MG DAILY 10/05 1000 AC 10/07 PO 1031 Sertraline HCl 200 MG DAILY 10/04 1000 AC 10/07 PO 1031 Tiotropium [place] 1 PUF DAILY 10/04 1000 AC 10/07 INH 1032 Last 24 Hrs of Lab/Wan Results Last 24 Hrs of Labs/Mics: Laboratory Tests 10/08/17 0652: CBC w Diff Pending, WBC Pending, RBC Pending, Hgb Pending, Hct Pending, MCV Pending, MCH Pending, RDW Pending, Plt Count Pending, MPV Pending, PUBS MCHC Pending Assessment/Plan Assessment: Ms. Escobar is a 67 yo f with PMH significant for A.fib currently on Xarelto for 6 weeks s/p a watchman implant, COPD on home oxygen of 2L NC, chronic GI bleeding and iron deficiency anemia 2/2 to AVM malformation with cauterization here with acute on chronic anemia and COPD. Problem list: 1. Acute by hypoxic respiratory failure 2. COPD exacerbation 3. Chronic anemia with thrombocytosis 4. Opioid dependence #Acute hypoxic respiratory failure most likely 2/2 COPD: She was given IV Ceftazadime due to her history of Pseudomonas PNA. She had leukocytosis without bandemia. CT chest demonstrated waxing and waning of the bilateral airspace disease, pneumonia and emphysematous changes. Repeat chest x-ray this morning shows no acute changes. Her breathing is subsequently improved. She is still having some wheezing though. -Prednisone taper -Appreciate pulmonology recommendations -[facility] nebs -Benzonatate #Chronic anemia with thrombocytosis: Patient is status post watchman and plate needs were approximated and for 6 weeks. Her iron is high. She is status post 3 units of PRBCs. Endoscopy revealed no active bleeding. Hemoglobin has subsequently been stable. -Hemoglobin goal greater than 8 -Appreciate GI recommendations -Avoid NSAIDs -Continue omeprazole #Opioid dependence: We attempted to transition the patient to oral pain medication yesterday. However she protested and was demanding IV pain medication. It was explained to her that her pain can be well controlled with oral medication and that this lasts longer as well. However, she continued to demand IV pain medication. The patient has had admissions in the past related to opioid overdose causing respiratory depression. -Continue IV hydromorphone 2 mg every 6 hours as needed. Consider outpatiuent pain management referral #Chronic medical problems -Continue home , phenylephrine, polyethylene glycol, artificial tears, rivaroxaban, digoxin, tiotropium, sertraline, omeprazole, guaifenesin, bupropion , losartan, levothyroxine, melatonin, pravastatin, furosemide, iron, ezetimibe, docusate, diltiazem, alprazolam, albuterol DVT prophylaxis with rivaroxaban Heart healthy diet Full code Problem List: 1. COPD, frequent exacerbations Pain Ratin Pain Location: knee Pain Goal: Remain pain free Pain Plan: see a/p Tomorrow's Labs & Rationales: none
[2017-10-08 07:43] LABS: ABSOLUTE BASOPHIL COUNT 0 /CUMM (0.0-0.2); ABSOLUTE EOSINOPHIL COUNT 0 /CUMM (0.0-0.7); ABSOLUTE GRANULOCYTE CT 14.4 /CUMM (1.4-6.5); ABSOLUTE LYMPH COUNT 0.8 /CUMM (1.2-3.4); ABSOLUTE MONOCYTE COUNT 0.7 /CUMM (0.10-0.60); BASOPHIL % 0 % (0.0-2.0); EOSINOPHIL % 0 % (0-5); MEAN CORPUSCULAR HGB 28.4 PG (27.0-31.0); MEAN CORPUSCULAR VOLUME 88.8 FL (81.0-99.0); MEAN PLATELET VOLUME 5.8 FL (7.4-10.4); PLATELET COUNT 897 /CUMM (130-400); RBC DISTRIBUTION WIDTH 17.8 % (11.5-14.5); RED BLOOD CELL CT 3.61 /CUMM (4.20-5.40); WHITE BLOOD CELL COUNT 15.9 /CUMM (4.8-10.8)
[2017-10-08 08:09] LABS: GRANULOCYTE % 90.3 % (42.2-75.2)
--- NOTE | 2017-10-08 08:51 | Discharge Summary ---
See Addendum Visit Information Visit Dates Admission Date: 10/03/17 Discharge Date: 10/08/17 Hospital Course Course Attending Physician: Gudelia ETIENNE,Mark Dinh Primary Care Physician: Gerard Rodas MD Hospital Course: Ms. Escobar is a 67 yo f with PMH significant for A.fib currently on Xarelto for 6 weeks s/p a watchman implant, COPD on home oxygen of 2L NC, chronic GI bleeding and iron deficiency anemia 2/2 to AVM malformation s/p balloon enteroscopy with cauterization who presented with worsening SOB and fatigue. Vitals on admission: Tmax 99.2, heart rate 111, respiratory 22, blood pressure 141/69 saturating 100% on 2 L nasal cannula Labs significant for leukocytosis of 17.1, H&H of 5.4/16.9, platelet in 1981, sodium 138, potassium 3.5, chloride 93, bicarbonate 29, B1 20, creatinine 0.7, PTT 35.2, INR 3.39, APTT 40, glucose 106, proBNP 3000 840, normal LFTs. EKG shows atrial fibrillation heart rate of 117 Last echo done 06/17/2017 showing EF of 60% and RV pressure 22 mmhg Unremarkable examination on chest x-ray CT chest without contrast significant for: 1. Waxing and waning of the bilateral airspace disease, pneumonia. 2. There is emphysematous changes of lung. ED course: Given one-time ceftriaxone Problem list: 1. Acute by hypoxic respiratory failure 2. COPD exacerbation 3. Chronic anemia with thrombocytosis 4. Opioid dependence #Acute hypoxic respiratory failure most likely 2/2 COPD: At the time of admission the patient was given IV ceftazidime owing to previous history of Pseudomonal pneumonia. Although the patient did have leukocytosis patient was followed off antibiotics and continued on IV methylprednisolone. This was transitioned to by mouth steroids on 10/06/2017. She did require another short course of IV methylprednisolone for persistent wheezing and shortness of breath. Her breathing eventually improved and she is now stable for discharge. She should continue prednisone taper as prescribed and follow-up with pulmonology. #Chronic anemia with thrombocytosis: At the time of presentation, the patient had an H/H of: 5.4/16.9. Patient was transfused 2 units of PRBCs. She subsequently underwent an endoscopy showed a fundic gland polyp but otherwise grossly normal with no active bleeding. On the evening of 10/04/2017 patient was transfused another unit of PRBCs. She responded appropriately and her H&H remained stable at: 9.3/28.3. An oral PPI was resumed. Patient has been instructed to avoid NSAIDs. Oral iron supplementation was also started. Her diet was advanced as tolerated. Her anemia is likely secondary to an AV malformation. #Opioid dependence: The patient was given IV pain medication for chronic osteoarthritis. We attempted to transition the patient to oral pain medication during her hospital stay. However she protested and was demanding IV pain medication. It was explained to her that her pain can be well controlled with oral medication and that this lasts longer as well. However, she continued to demand IV pain medication. The patient has had admissions in the past related to opioid overdose causing respiratory depression. She should use opioids with extreme caution given her extensive respiratory disease. #Chronic medical problems The following home medications were continued: home , phenylephrine, polyethylene glycol, artificial tears, rivaroxaban, digoxin, tiotropium, sertraline, omeprazole, guaifenesin, bupropion, losartan, levothyroxine, melatonin, pravastatin, furosemide, iron, ezetimibe, docusate, diltiazem, alprazolam, albuterol. At the time of presentation the patient's Xarelto was held. On 10/05/2017 resumed Xarelto owing to recommendations from cardiology. It was recommended from 10/04/2017 that the patient would require an additional two weeks of Xarelto therapy. Rate controlling medications diltiazem and digoxin were continued. Allergies: Coded Allergies: menotropins (HIVES FROM PERGONAL 11/15/15) apixaban (HEMATOMA TO HIP 02/02/17) Disposition Summary Disposition Principal Diagnosis: 1. Acute by hypoxic respiratory failure Additional Diagnosis: 2. COPD exacerbation 3. Chronic anemia with thrombocytosis 4. Opioid dependence Discharge Disposition: home health services Discharge Instructions General Discharge Information Code Status: Full Code Patient's Diet: Heart healthy diet Patient's Activity: As tolerated Follow-Up Instructions/Appts: Please take all medications as directed. Please follow-up with pulmonology. Please follow-up with primary care. Medications at Discharge Discharge Medications: Continue taking these medications: Levothyroxine Sodium (Levothyroxine Sodium) 100 MCG TABLET 1 Tablet ORAL DAILY BEFORE BREAKFAST Comments: Last Taken: 10/08/17 Time: 6AM Sertraline HCl (Zoloft) 100 MG TABLET 2 Tablet ORAL DAILY Comments: Last Taken: 10/08/17 Time: 9AM Ezetimibe (Zetia) 10 MG TABLET 1 Tablet ORAL Every night Comments: Last Taken: 10/07/17 Time: 9PM Ferrous Sulfate (Ferrous Sulfate) 325 MG (65 MG IRON) TABLET 1 Tablet ORAL THREE TIMES DAILY Comments: Last Taken: 10/08/17 Time: 9AM Pravastatin Sodium (Pravachol) 40 MG TABLET 1 Tablet ORAL Every night Comments: Last Taken: 10/07/17 Time: 9PM Montelukast Sodium (Montelukast Sodium) 10 MG TABLET 1 Tablet ORAL DAILY Comments: Last Taken: 10/08/17 Time: 9AM Vitamin E (Dl,Tocopheryl Acet) (Vitamin E) 400 UNIT CAPSULE 1 Tablet ORAL DAILY Comments: NOT GIVEN IN [facility] Budesonide (Pulmicort) 0.5 MG/2 ML AMPUL.NEB 1 Vial Inhale Solution TWICE DAILY Comments: NOT GIVEN IN HOSPITAL Guaifenesin (Mucinex) 600 MG TAB.ER.12H 1 Tablet ORAL DAILY Comments: Last Taken: 10/08/17 Time: 9AM Tiotropium [place] (Spiriva) 18 MCG CAP.W.DEV 1 Capsule Inhale through mouth DAILY Qty = 3 Instructions: Reason to Stop at ADM:TR NEBS ORDERS Comments: Last Taken: 10/08/17 Time: 9AM Fluticasone/Salmeterol (Advair 250-50 Diskus) 250 MCG-50 MCG/DOSE BLST.W.DEV 1 Puff Inhale through mouth TWICE DAILY Comments: NOT GIVEN IN HOSPITAL Albuterol Sulfate (Albuterol Sulfate) 2.5 MG/3 ML (0.083 %) VIAL.NEB 1 Vial Inhale Solution as needed for RESPIRATORY Comments: Last Taken: 10/08/17 Time: 2PM Nitroglycerin (Nitro-Dur) 0.6 MG/HOUR PATCH.TD24 1 PATCH On the skin DAILY Comments: Last Taken: 10/08/17 Time: 9AM Omeprazole (Omeprazole) 40 MG CAPSULE.DR 1 Capsule ORAL DAILY Comments: NOT GIVEN IN HOSPITAL [place]-3 Fatty Acids/Fish Oil (Fish Oil 1,200 MG Softgel) 360 MG-1,200 MG CAPSULE. 1 Capsule ORAL DAILY Comments: NOT GIVEN IN HOSPITAL Furosemide (Furosemide) 40 MG TABLET 1 Tablet ORAL TWICE DAILY Comments: Last Taken: 10/08/17 Time: 9AM Nitroglycerin (Nitrostat) 0.4 MG TAB.SUBL 1 Tablet SUBLINGUAL As Directed as needed for CHEST PAIN Instructions: 1st sign of attack; may repeat every 5 minutes until relief; if pain persists after 3 tablets in 15 minutes, prompt medical att Comments: NOT GIVEN IN HOSPITAL Roflumilast (Daliresp) 500 MCG TABLET 1 Tablet ORAL DAILY Qty = 30 Instructions: . Comments: NOT GIVEN IN HOSPITAL Bupropion HCl (Wellbutrin Sr) 100 MG TABLET.ER 1 Tablet ORAL Every Morning Qty = 90 Comments: Last Taken: 10/08/17 Time: 9AM Alprazolam (Alprazolam) 0.5 MG TABLET 1 Tablet ORAL 2 x Daily as needed as needed for ANXIETY Comments: Last Taken: 10/07/17 Time: 10 AM Metoprolol Tartrate (Metoprolol Tartrate) 25 MG TABLET 25 Milligram ORAL TWICE DAILY Qty = 60 Comments: NOT GIVEN IN HOSPITAL Digoxin (Lanoxin) 125 MCG TABLET 1 Tablet ORAL 5 PM Qty = 30 Comments: Last Taken: 10/07/17 Time: 5PM Prednisone (Prednisone) 10 MG TABLET 1 Tablet ORAL DAILY Qty = 9 Instructions: Date #tabs to take 07/27 3 07/28 2 07/29 2 07/30 1 07/31 1 Comments: Last Taken: 10/06/17 Time: 9AM PT GIVEN 40MG Polyethylene Glycol 3350 (Miralax) 17 GRAM/DOSE POWDER 17 Gram ORAL DAILY Qty = 255 Instructions: mix with water, juice, soda, coffee or tea Comments: Last Taken: 10/07/17 Time: 3PM Diltiazem HCl (Diltiazem 24HR ER) 240 MG CAP.ER.24H 1 Capsule ORAL TWICE DAILY Qty = 60 Comments: Last Taken: 10/08/17 Time: 9AM Losartan Potassium (Losartan Potassium) 50 MG TABLET 1 Tablet ORAL DAILY Qty = 90 Comments: Last Taken: 10/08/17 Time: 9AM Rivaroxaban (Xarelto) 20 MG TABLET 1 Tablet ORAL DAILY Qty = 30 Instructions: with food Comments: Last Taken: 10/08/17 Time: 9AM Docusate Sodium (Colace) 100 MG CAPSULE 2 Capsule ORAL Every night Comments: Last Taken: 10/07/17 Time: 9PM Start taking the following new medications: Prednisone (Prednisone) 20 MG TABLET 1 Tablet ORAL DAILY Qty = 3 No Refills Instructions: Please take from 10/15/17-10/17/17. Then resume home dose 10mg Daily Comments: NOT GIVEN IN HOSPITAL Prednisone (Prednisone) 10 MG TABLET 3 Tablet ORAL DAILY Qty = 9 No Refills Instructions: Please take from 10/12/16-10/14/17. Comments: NOT GIVEN IN HOSPITAL Prednisone (Prednisone) 20 MG TABLET 2 Tablet ORAL DAILY Qty = 6 No Refills Instructions: Please take from 10/09/17-10/11/17. Comments: NOT GIVEN IN HOSPITAL Oxycodone HCl/Acetaminophen (Percocet 5-325 MG Tablet) 5 MG-325 MG TABLET 1 Tablet ORAL EVERY SIX HOURS as needed for severe pain Qty = 28 No Refills Instructions: . Comments: Last Taken: 10/03/17 Time: 10PM Copies To: Edilson ETIENNE,Sedrick Dinh; Darion ETIENNE,Ludin Naranjo MD PHD,Gerard SNelida; Devonte ETIENNE,Roscoe ; Clark ETIENNE,Gerard Castro Attending MD Review Statement Documenting Attending: Gudelia ETIENNE,Mark Dinh Other Findings: agree with the above discharge plan . please see my separate attending note for more details.
--- NOTE | 2017-10-08 10:03 | RADIOLOGY REPORT ---
EXAMINATION: XR CHEST CLINICAL INFORMATION: Persistent wheezing and shortness of breath, pneumonia versus COPD. COMPARISON: Portable frontal view of the chest dated 10/05/[address] scan of the chest dated 10/03/2017. TECHNIQUE: Frontal and lateral views of the chest were obtained. FINDINGS: There are subtle areas of increased density within the bilateral lung bases, central in the right lung base and left retrocardiac, these are not definitely present on the portable study of 10/05/2017, however likely correlate with the scattered densities noted on the chest CT study of 10/03/2017. Central bronchial wall thickening is prominent extending to the margins of the bilateral lungs. This finding is also not visualized on the portable chest x-ray study. There is no evidence of pleural effusion or pneumothorax. The central pulmonary vasculature is within normal limits. The cardiomediastinal silhouette is not enlarged. There is flattening of the diaphragms with increased AP diameter suggestive of changes of COPD. The bony structures are unremarkable. Again noted is the cardiac stent of the wall of the left atrium. IMPRESSION: 1. Findings consistent with changes of COPD. 2. Subtle densities in the bilateral lung bases may represent focal atelectasis, however correlate well with the densities present on the recent CT study. Clinical correlation requested. 3. Bronchial wall thickening both centrally and extending to the periphery in the bilateral lungs, this may represent a bronchial wall infectious/inflammatory process such as bronchitis. Again, clinical correlation is requested.
[2017-10-08] MEDS ORDERED: PERCOCET 5-3251 EACH PO ×3 (10:34→16:23)
[2017-10-08] MEDS ORDERED: PREDNISONE10 M2 PO ×2 (10:34→13:04)
[2017-10-08] MEDS ORDERED: PREDNISONE20 M1 PO ×2 (10:34→13:04)
--- NOTE | 2017-10-08 11:02 | PN- Pulmonary ---
Subjective HPI/Critical Care Issues: pt seen and examined awaiting dc today cough remains but improved Objective Current Medications: Current Medications Sig/Lana Start time Last Medication Dose Route Stop Time Status Admin Acetaminophen 650 MG .STK-MED ONE 10/07 184 DC PO 10/07 184 Acetaminophen 650 MG Q4P PRN 10/03 213 AC 10/07 PO 2058 Albuterol Sulfate 3 ML TID 10/03 2200 AC 10/08 INH 0839 Alprazolam 0.5 MG BID PRN 10/03 2200 AC 10/07 PO 10/10 2159 1045 Artificial Tears 2 GTT 4 TIMES/DAY 10/05 1058 AC 10/07 OPH 1458 Benzonatate 100 MG TID PRN 10/04 2014 AC 10/06 PO 2132 Bisacodyl 5 MG ONE ONE 10/08 0730 DC 10/08 PO 10/08 0731 0828 Bupropion HCl 100 MG QAM 10/04 1000 AC 10/08 PO 0827 Digoxin 0.125 MG 1700 10/04 1700 AC 10/07 PO 1643 Diltiazem HCl 240 MG BID 10/03 2200 AC 10/08 PO 0827 Docusate Sodium 200 MG QPM 10/03 2200 AC 10/07 PO 2102 Ezetimibe 10 MG QPM 10/03 2200 AC 10/07 PO 205 Ferrous Sulfate 325 MG TID 10/03 2200 AC 10/08 PO 0827 Furosemide 40 MG BID 10/03 2200 AC 10/08 PO 0833 Guaifenesin 600 MG DAILY 10/04 1000 AC 10/08 PO 0827 Hydromorphone HCl 2 MG Q6P PRN 10/07 1145 AC 10/08 IV 0635 Levothyroxine Sodium 0.1 MG DAILY AC 10/04 0700 AC 10/08 PO 0611 Losartan Potassium 50 MG DAILY 10/04 1000 AC 10/08 PO 0827 Melatonin 5 MG AT BEDTIME 10/03 2345 AC 10/07 PO 205 Methylprednisolone 40 MG Q12 10/07 1000 DC 10/08 IV 0827 Montelukast Sodium 10 MG DAILY 10/04 1000 AC 10/08 PO 0826 Nitroglycerin 0.6 MG DAILY 10/04 1000 AC 10/08 TOP 0827 Omeprazole 40 MG DAILY AC 10/07 1103 AC 10/08 PO 0611 Oxycodone HCl 5 MG Q6 PRN 10/07 0915 DC PO Pantoprazole Sodium 40 MG DAILY 10/04 1000 DC 10/07 IV 1030 Phenylephrine HCl 1 MAX Q6P PRN 10/05 1945 AC PA Polyethylene Glycol 17 GM DAILY PRN 10/05 1100 AC 10/07 PO 1457 Pravastatin Sodium 40 MG QPM 10/03 2200 AC 10/07 PO 2057 Ramelteon 8 MG ONCE PRN 10/06 0130 AC 10/06 PO 2133 Rivaroxaban 20 MG DAILY 10/05 1000 AC 10/08 PO 0827 Sertraline HCl 200 MG DAILY 10/04 1000 AC 10/08 PO 0826 Tiotropium [place] 1 PUF DAILY 10/04 1000 AC 10/08 INH 0828 Vital Signs & I&O Last 24 Hrs of Vitals and I&O: Vital Signs Date Time Temp Pulse Resp B/P B/P Pulse O2 O2 Flow FiO2 Mean Ox Delivery Rate 10/08 0841 99 Nasal 2.0L Cannula 10/08 0827 121 158/72 10/08 0800 97 Nasal 2.0L Cannula 10/08 0657 98.5 111 18 158/72 96 Nasal Cannula 10/08 0000 Nasal 2.0L Cannula 10/07 2200 98.8 120 18 160/72 96 10/07 1930 99 Nasal 2.0L Cannula 10/07 1643 86 138/64 10/07 1629 96 Nasal 2.0L Cannula 10/07 1455 97.5 86 20 138/64 100 Nasal 2.0L Cannula Intake & Output 10/08 1600 10/08 0800 10/08 0000 Intake Total 150 200 Output Total Balance 150 200 Intake, Oral 150 200 Patient 126 lb Weight Weight Bed scale Measurement Method Exam Other Physical Findings: awake and alert wheezing bilaterally no leg edema s1, s2 Results Last 24 Hrs of Lab Results: Laboratory Tests 10/08/17 0652: CBC w Diff NO MAN DIFF REQ, RBC 3.61 L, MCV 88.8, MCH 28.4, RDW 17.8 H, MPV 5.8 L, Gran % 90.3 H, Lymphocytes % 5.2 L, Monocytes % 4.5, Eosinophils % 0, Basophils % 0, Absolute Granulocytes 14.4 H, Absolute Lymphocytes 0.8 L, Absolute Monocytes 0.7 H, Absolute Eosinophils 0, Absolute Basophils 0, PUBS MCHC 32.0 L Impression/Plan Impression/Plan Impression/Plan: Impression 67 year old woman * stabilized acute blood loss anemia likely secondary to AVM's * a.fib s/p Watchman device * possible exacerbation of COPD * waxing/waning airspace disease, better on right, worse on left - hx of pseudomonas infection Plan -prednisone taper 40x3, 30x3, 20x3, then remain on 10mg until seen in office -ambulate -evaluate for dc plan for today DVT prophylaxis at all times
--- NOTE | 2017-10-08 11:15 | Patient Discharge Instructions ---
Discharge Instructions General Discharge Information You were seen/treated for: COPD exacerbation and anemia Watch for these problems: Shortness of breath, chest pain, fever Special Instructions: Please take all medications as directed. Please follow-up with primary care. Please follow-up with Dr. Whitney. Please follow-up with pain management. Diet Continue normal diet: Yes Activity Full Activity/No Limits: Yes Acute Coronary Syndrome Inclusion Criteria At DC or during hospital stay patient has or had the following: ACS DIAGNOSIS No Discharge Core Measures Meds if any: Prescribed or Continued at Discharge Meds if any: NOT Prescribed or Continued at Discharge Congestive Heart Failure Inclusion Criteria At DC or during hospital stay patient has or had the following: CHF DIAGNOSIS No Discharge Core Measures Meds if any: Prescribed or Continued at Discharge Meds if any: NOT Prescribed or Continued at Discharge Cerebrovascular accident Inclusion Criteria At DC or during hospital stay patient has or had the following: CVA/TIA Diagnosis No Discharge Core Measures Meds if any: Prescribed or Continued at Discharge Meds if any: NOT Prescribed or Continued at Discharge Venous thromboembolism Inclusion Criteria VTE Diagnosis No VTE Type NONE VTE Confirmed by (Test) NONE Discharge Core Measures - Per Current guidelines, there needs to be overlap - treatment for the first 5 days of Warfarin therapy. - If discharged on Warfarin prior to 5 days of - overlap therapy, the patient will need to be - assessed for post discharge needs including - *Post discharge parental anticoagulation - *Warfarin and/or parental anticoagulation education - *Follow up date to check INR post discharge At least 5 days overlap therapy as Inpatient No Meds if any: Prescribed or Continued at Discharge Note: Overlap Therapy is Warfarin and Anticoagulant Meds if any: NOT Prescribed or Continued at Discharge
[2017-10-08 14:09] VITALS: BP 140/54
--- NOTE | 2017-10-08 20:51 | PN- Cardiology ---
Subjective Subjective: * Cynthia has greatly improved breathing although she is coughing up sputum. * atrial filbrillation with controlled heart rate * stable H/H * increased WBC count on steroids Objective Vital Signs and I&Os Vital Signs Date Time Temp Pulse Resp B/P B/P Pulse O2 O2 Flow FiO2 Mean Ox Delivery Rate 10/08 1409 98.6 136 20 140/54 96 Nasal 2.0L Cannula 10/08 0841 99 Nasal 2.0L Cannula 10/08 0827 121 158/72 10/08 0800 97 Nasal 2.0L Cannula 10/08 0657 98.5 111 18 158/72 96 Nasal Cannula 10/08 0000 Nasal 2.0L Cannula 10/07 2200 98.8 120 18 160/72 96 Intake & Output 10/08 1600 10/08 0800 10/08 0000 10/07 1600 10/07 0800 10/07 0000 Intake Total 560 150 200 264 888 8616 Output Total 900 Balance -340 150 200 866 578 0819 Intake, IV 20 5 11 Intake, Oral 540 150 200 449 203 8769 Output, Urine 900 Patient 126 lb 123 lb Weight Weight Bed scale Chair scale Measurement Method Physical Exam: General: WD/WN female in NAD; alert and oriented x 3 HEENT: NC/AT, PERRL, EOMI Neck: +ve JVD, no carotid bruit Heart: irregularly irregular Lungs: decreased air movement Abdomen: soft, NT, +ve bowel sounds Extremities: no edema Assessment/Plan Assessment/Plan * Patient is doing much better. Continue chronic anticoagulation with Xarelto as previously instructed and follow H/H. Okay for discharge from a cardiac standpoint with follow up in the office. No other medication changes. Continue telemetry? No
== END 2017-10-08 16:50 | disposition home health service (06) | DRG 811 ==
LOC: ERH 13:54 → CRI 18:47 → ERHI 18:47 → ENRESERV 19:49 → ENTRNSPT 20:15 → EDTRNSPTSTS 20:26 → CMPTRNSPT 20:51 → CRI 21:02 → 1NO 10-05 14:48 → ENPENDDIS 10-08 13:05 → 1NO 10-08 16:50
PROVIDERS: Internal Medicine; Internal Medicine Adolescent Medicine; Physician Assistant Medical; Student in an Organized Health Care Education/Training Program
PROC: 0DJ08ZZ Inspection of Upper Intestinal Tract, Via Natural or Artificial Opening Endoscopic (ICD-10-PCS; principal; 2017-10-04)
PROC: 30233N1 Transfusion of Nonautologous Red Blood Cells into Peripheral Vein, Percutaneous Approach (ICD-10-PCS; 2017-10-04)
DX: D62 Acute posthemorrhagic anemia (principal); K55.21 Angiodysplasia of colon with hemorrhage; J96.11 Chronic respiratory failure with hypoxia; I50.32 Chronic diastolic (congestive) heart failure; I48.2 Chronic atrial fibrillation; I11.0 Hypertensive heart disease with heart failure; J44.1 Chronic obstructive pulmonary disease with (acute) exacerbation; Z99.81 Dependence on supplemental oxygen; K31.7 Polyp of stomach and duodenum; E03.9 Hypothyroidism, unspecified; I25.10 Atherosclerotic heart disease of native coronary artery without angina pectoris; I25.2 Old myocardial infarction; Z87.01 Personal history of pneumonia (recurrent); K21.9 Gastro-esophageal reflux disease without esophagitis; K58.9 Irritable bowel syndrome, unspecified; M79.7 Fibromyalgia; F41.9 Anxiety disorder, unspecified; F32.9 Major depressive disorder, single episode, unspecified; G89.29 Other chronic pain; E78.5 Hyperlipidemia, unspecified; Z79.01 Long term (current) use of anticoagulants
CPT/HCPCS: 1NP; CCU; 36415; 71045; 71046; 80307; 81003; 82436; 83010; 86920; 87040; 87070; 87086; 93005; 93010; 96374; 99291; J0696; J0713; J2405; J2920; J2930; J3490; J7060; P9016

== ENCOUNTER 2017-11-27 12:58 | Inpatient (IN) | payer OTHER, MEDICARE ==
[~2017-11-27] VITALS: Ht 157.5 cm; Wt 50.8 kg
[~2017-11-27 12:58] MED LIST changes: +DILTIAZEM 24HR240 MG PO
--- NOTE | 2017-11-27 13:45 | ED DYSPNEA/ASTHMA COMPLAINT ---
History of Present Illness General Chief Complaint: General Adult Stated Complaint: SENT IN BY MD RODAS FOR SOB Source: patient, old records Exam Limitations: no limitations Vital Signs & Intake/Output Vital Signs & Intake/Output Vital Signs Date Time Temp Pulse Resp B/P B/P Pulse O2 O2 Flow FiO2 Mean Ox Delivery Rate 11/28 0631 97.7 83 20 148/76 99 Nasal 2.0L Cannula 11/28 0000 99 Nasal 2.0L Cannula 11/27 2212 86 150/70 11/27 2134 97.5 85 20 153/75 99 Nasal 2.0L Cannula 11/27 1822 98.6 85 18 123/66 97 Nasal 2.0L Cannula 11/27 1810 Nasal 2.0L Cannula 11/27 1751 98.0 82 18 124/57 100 Nasal Cannula 11/27 1403 Nasal 3.0L Cannula 11/27 1349 94 Nasal 2.0L Cannula 11/27 1307 99.4 84 20 94 Nasal 2.0L Cannula ED Intake and Output 11/28 0000 11/27 1200 Intake Total 750 Output Total Balance 750 Intake, IV 50 Intake, Oral 700 Patient 112 lb Weight Weight Reported by Patient Measurement Method Allergies Coded Allergies: menotropins (HIVES FROM PERGONAL 11/15/15) apixaban (HEMATOMA TO HIP 02/02/17) Triage Note: PT STATES SHE THOUGHT SHE HAD THE FLU A COUPLE OF WEEKS AGO BUT SHE HAD STREP AND PNEUMONIA INSTEAD. PT STATES SHE WOKE 2 DAYS AGO WITH THE SAME S/S AND TODAY SHE RYLEY BEEN COUGHING UP PINK SPUTUM. PT IS 02 DEPENDANT ON 2L VIA NC. Triage Nurses Notes Reviewed? yes Onset: Abrupt Duration: day(s): (2), constant Timing: recent history Severity: moderate Activities at Onset: activity Prior Episodes/Possible Cause: frequent episodes Associated Symptoms: cough HPI: 67-year-old female history of A. fib COPD CHF pacemaker presents complaining of a 2 day history of generalized bodyaches myalgia worsening shortness of breath cough productive of pink sputum. She is not on any anticoagulation, there is no pain with inspiration. She is normally on 2 L of oxygen daily. No abdominal pain nausea vomiting. No urinary urgency frequency dysuria. Patient was recently admitted 2 months ago for pneumonia and states this feels similar. No leg swelling no modifying factors or associated symptoms otherwise. (Tomas EVERETT,Joselo) Reconcile Medications Acetaminophen With Codeine (Acetaminophen-Cod #4 Tablet) 300 MG-60 MG TABLET 1 TAB PO TID PRN PAIN (Reported) Albuterol Sulfate 2.5 MG/3 ML (0.083 %) VIAL.NEB 1 Vial INH/DANIKA PRN RESPIRATORY (Reported) Alprazolam 0.5 MG TABLET 1 TAB PO BIDP PRN ANXIETY (Reported) Aspirin (Ecotrin*) 81 MG TABLET.DR 1 TAB PO DAILY HEART HEALTH (Reported) Bupropion HCl (Wellbutrin Sr) 100 MG TABLET.ER 1 TAB PO QAM Depression/Anxiety Calcium Carb & Citrate/Vit D3 (Calcium + D3 ER Tablet) 600 MG CALCIUM-500 UNIT TABLET.ER 1 TAB PO DAILY VIT (Reported) Dicyclomine HCl 10 MG CAPSULE 1 CAP PO TID ABD SPASM (Reported) Digoxin (Lanoxin) 125 MCG TABLET 1 TAB PO 1700 a. fib Docusate Sodium (Colace) 100 MG CAPSULE 2 CAP PO QPM CONSTIPATION (Reported) Ezetimibe (Zetia) 10 MG TABLET 1 TAB PO QPM CHOLESTEROL (Reported) Ferrous Sulfate 325 MG (65 MG IRON) TABLET 1 TAB PO TID SUPPLEMENT (Reported) Fish Oil/Borage/Flax/Om3,6,9#1 ([place] 3-6-9 1,200 MG Softgel) 1,200 MG CAPSULE 1 CAP PO DAILY VITAMIN (Reported) Fluticasone/Salmeterol (Advair 250-50 Diskus) 250 MCG-50 MCG/DOSE BLST.W.DEV 1 PUF INH BID BREATHING PROBLEMS (Reported) Furosemide 40 MG TABLET 1 TAB PO BID DIURETIC (Reported) Guaifenesin (Mucinex) 600 MG TAB.ER.12H 2 TAB PO BID EXPECTORANT (Reported) Levothyroxine Sodium 100 MCG TABLET 1 TAB PO DAILY AC THYROID (Reported) Losartan Potassium 50 MG TABLET 1 TAB PO DAILY HEART (Reported) Metoprolol Tartrate 25 MG TABLET 25 MG PO BID Atrial fibrilation Montelukast Sodium 10 MG TABLET 1 TAB PO DAILY COPD (Reported) Niacin (Niaspan) 500 MG TAB.ER.24H 1 TAB PO DAILY VITAMIN (Reported) Nitroglycerin (Nitro-Dur) 0.6 MG/HOUR PATCH.TD24 1 PATCH TOP DAILY HEART ( Reported) Nitroglycerin (Nitrostat) 0.4 MG TAB.SUBL 1 TAB SL AD PRN CHEST PAIN ( Reported) 1st sign of attack; may repeat every 5 minutes until relief; if pain persists after 3 tablets in 15 minutes, prompt medical att [place]-3 Fatty Acids/Fish Oil (Fish Oil 1,200 MG Softgel) 360 MG-1,200 MG CAPSULE.DR 1 CAP PO DAILY SUPPLEMENT (Reported) Omeprazole 40 MG CAPSULE.DR 1 CAP PO DAILY GI (Reported) Polyethylene Glycol 3350 (Miralax) 17 GRAM/DOSE POWDER 17 GM PO DAILY constipation mix with water, juice, soda, coffee or tea Potassium Chloride (Klor-Con M20) 20 MEQ TAB.ER.PRT 1 TAB PO DAILY VITAMIN ( Reported) Pravastatin Sodium (Pravachol) 40 MG TABLET 1 TAB PO QPM CHOLESTEROL ( Reported) Prednisone 10 MG TABLET 1 TAB PO DAILY COPD Please take from 10/12/16-10/14/17. Roflumilast (Daliresp) 500 MCG TABLET 1 TAB PO DAILY COPD (Reported) . Sertraline HCl (Zoloft) 100 MG TABLET 2 TAB PO DAILY DEPRESSION (Reported) Tiotropium [place] (Spiriva) 18 MCG CAP.W.DEV 1 CAP INH DAILY copd Reason to Stop at ADM:[facility] NEBS ORDERS Vitamin E (Dl,Tocopheryl Acet) (Vitamin E) 400 UNIT CAPSULE 1 TAB PO DAILY SUPPLEMENT (Reported) (Ingrid ETIENNE,Francisco Romo) Past History Travel History Traveled to [place] past 21 day No Medical History Any Pertinent Medical History? 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, HPV (PER PT) Other Medical Hx: discoid lupus eczema History of MRSA: No History of VRE: No History of CDIFF: No Influenza Vaccine: 06/23/17 Tetanus Vaccine: 02/07/16 Surgical History Surgical History: appendectomy, hernia repair-hiatal tonsillectomy Psychosocial History Who do you live with Patient/Self Services at Home Oxygen What is your primary language Burmese Tobacco Use: Quit >30 days ago ETOH Use: denies use Illicit Drug Use: denies illicit drug use Family History Family History, If Any: MOTHER FH: CAD (coronary artery disease) FH: COPD (chronic obstructive pulmonary disease) FH: heart disease FATHER Alzheimer's disease BROTHER FH: CAD (coronary artery disease) BROTHER FH: CAD (coronary artery disease) BROTHER FH: CAD (coronary artery disease) Hx Contributory? No (Joselo Ramos) Review of Systems Review of Systems Constitutional: Reports: see HPI. Comments Review of systems: See HPI, All other systems negative. Constitutional, no chills no fever, HEENT: no sore throat no congestion Cardiovascular: No chest pain Skin: no rashes, no change in skin Respiratory: dyspnea cough sputum GI: No nausea no vomiting, no diarrhea : No dysuria No hematuria, no frequency Muscle skeletal: No joint pain, no back pain Neurologic: , no headache Heme/endocrine: No bruising no bleeding Immunology: No lymphadenopathy (Joselo Ramos) Physical Exam Physical Exam General Appearance: well developed/nourished, alert, awake Respiratory: chest non-tender Comments: Well-developed well-nourished person in no acute distress HEENT: Normal EENT exam; PERRL, EOMI, HEAD is atraumatic. moist mucous membranes. Neck: Supple, no lymphadenopathy, normal range of motion Back: Nontender, no CVA tenderness. Full range of motion Cardiovascular: Regular rate and rhythms no murmurs Respiratory: No respiratory distress. Patient speaking in full complete sentences. Breath sounds clear to auscultation bilaterally: NO W/R/R Abdomen: Soft, nontender nondistended, no appreciable organomegaly. Normal bowel sounds. No rebound/guarding Extremity: No edema, full range of motion of extremities Neuro: Alert oriented x3, motor sensory normal. There were no obvious focal neurologic abnormalities. Skin: No appreciable rash on exposed skin, skin is warm and dry. Psych: Mood and affect is normal, memory and judgment is normal. Core Measures ACS in differential dx? Yes CVA/TIA Diagnosis No Sepsis Present: No Sepsis Focused Exam Completed? No (Joselo Ramos) Progress Differential Diagnosis: asthma, AMI, bronchitis, costochondritis, CHF, COPD, pulmonary embolism, pneumonia, unstable angina, INFLUENZA Plan of Care: Orders Procedure Date/time Status CBC WITHOUT DIFFERENTIAL 11/28 06 Active BASIC ELECTROLYTES PLUS BUN&CR 11/28 0600 Active Regular Diet 11/27 D Active LOWER RESPIRATORY CULTURE 11/27 2235 Active Weight 11/27 1814 Complete Vital Signs 11/27 1814 Active Teach/Educate 11/27 1814 Active Pain Treatment and Response 11/27 181 Active Nutritional Intake, Monitor 11/27 181 Active Isolation 11/27 1814 Active Intake & Output 11/27 1814 Active Patient Care Conference 11/27 1814 Active Activity/Ambulation 11/27 1814 Active Pathway - chart 11/27 1734 Active House Staff 11/27 1734 Active Pathway - chart 11/27 1646 Active House Staff 11/27 1646 Active Code Status 11/27 1646 Active STREP PNEUMO URINARY ANTIGEN 11/27 1604 Complete LEGIONELLA URINARY ANTIGEN 11/27 1604 Complete Admit to inpatient 11/27 1551 Active Lab Add-on Test 11/27 1550 Active Lab Add-on Test 11/27 1547 Active Patient Data 11/27 1504 Active THYROID STIMULATING HORMONE 11/27 1500 Complete PHOSPHORUS 11/27 1500 Complete MAGNESIUM 11/27 1500 Complete DIGOXIN 11/27 1500 Complete B-TYPE NATRIURETIC PEP (BNP) 11/27 1500 Complete Telemetry/Vice President Quality Improvement 11/27 1353 Complete Intake & Output 11/27 1348 Active EKG 11/27 1344 Active RAPID VIRAL INFLUENZA A 11/27 1310 Complete BLOOD CULTURE 11/27 1310 Active TROPONIN LEVEL 11/27 1310 Complete PROTHROMBIN TIME 11/27 1310 Complete LACTIC ACID 11/27 1310 Complete COMPREHENSIVE METABOLIC PANEL 11/27 1310 Complete CBC WITHOUT DIFFERENTIAL 11/27 1310 Complete Change service to 11/27 UNK Active VTE Mechanical Prophylaxis 11/27 UNK Active PHARMACY COMMUNICATION FORM 11/27 UNK Active Current Medications Sig/Lana Start time Last Medication Dose Stop Time Status Admin Aspirin Buffered 81 MG 11/28 2200 AC (Ecotrin) Melatonin 5 MG AT BEDTIME 11/28 2199 AC (Melatonin) Montelukast Sodium 10 MG AT BEDTIME 11/28 2200 AC (Singulair) Digoxin 0.125 MG 1700 11/28 1700 AC (Lanoxin) Pravastatin Sodium 40 MG 1700 11/28 1700 AC (Pravachol) Bupropion HCl 100 MG QAM 11/28 1000 AC (Wellbutrin SR) Calcium/Vitamin D 500 MG DAILY 11/28 1000 AC (Oscal-D 500MG (Osyter Shell)) Ferrous Sulfate 325 MG DAILY 11/28 1000 AC (Feosol) Losartan Potassium 50 MG DAILY 11/28 1000 AC (Cozaar) Nitroglycerin 0.4 MG DAILY 11/28 1000 AC (Transderm Nitro 10MG (0.4 MG/Hr) Patch) Polyethylene Glycol 17 GM DAILY 11/28 1000 AC (Miralax) Potassium Chloride 20 MEQ DAILY 11/28 1000 AC (K-Dur) Roflumilast 500 MCG DAILY 11/28 1000 AC (DALIRESP) Sertraline HCl 200 MG DAILY 11/28 1000 AC (Zoloft) Vitamin E 400 IU DAILY 11/28 1000 AC (Vitamin E) Nicotinic Acid 500 MG WITH MEALS 11/28 08 AC (Niacin 500MG Tab) Furosemide 40 MG 0730,1630 11/28 0730 AC 11/28 (Lasix) 0631 Levothyroxine Sodium 0.1 MG DAILY AC 11/28 0700 AC 11/28 (Synthroid) 0626 Omeprazole 40 MG DAILY AC 11/28 0700 AC 11/28 (Prilosec) 0626 Dicyclomine HCl 10 MG TID 11/27 2200 AC 11/27 (Bentyl) 2211 Docusate Sodium 200 MG QPM 11/27 2200 AC 11/27 (Colace) 2211 Ezetimibe 10 MG QPM 11/27 2200 AC 11/27 (Zetia) 2212 Guaifenesin 1,200 MG BID 11/27 2200 AC 11/27 (Mucinex) 2211 Metoprolol Tartrate 25 MG BID 11/27 2200 AC 11/27 (Lopressor) 2212 Levofloxacin 750 MG DAILY 11/27 1830 AC 11/27 (Levaquin) 1944 Nitroglycerin 0.4 MG SEE ADMIN CRITERIA.. 11/27 1800 AC (Nitrostat) Alprazolam 0.5 MG Q12P PRN 11/27 1745 AC (Xanax) 12/04 174 Oxycodone/ 1 TAB Q8P PRN 11/27 1745 AC 11/28 Acetaminophen 0339 (Percocet) Laboratory Tests 11/27/17 1610: Lactic Acid Cancelled 11/27/17 1500: Anion Gap 11, Estimated GFR > 60, BUN/Creatinine Ratio 18.3, Glucose 115 H, Lactic Acid 1.0, Calcium 9.1, Phosphorus 2.9, Magnesium 1.5 L, Total Bilirubin 0.4, AST 19, ALT 22, Alkaline Phosphatase 63, Troponin I 0.02, Kog-W-Jsehyvltjhb Pept 4490 H, Total Protein 5.4 L, Albumin 3.2 L, Globulin 2.2, Albumin/ Globulin Ratio 1.5, TSH 0.296, Digoxin 0.6 L 11/27/17 1420: PT 13.8 H, INR 1.26 H, CBC w Diff MAN DIFF ORDERED, RBC 4.03 L, MCV 91.7, MCH 29.0, MCHC 31.6 L, RDW 16.7 H, MPV 6.6 L, Gran % 91.9 H, Lymphocytes % 4.1 L, Monocytes % 3.9, Eosinophils % 0, Basophils % 0.1, Absolute Granulocytes 23.8 H, Segmented Neutrophils 94 H, Absolute Lymphocytes 1.1 L, Lymphocytes 3 L, Monocytes 3, Absolute Monocytes 1.0 H, Absolute Eosinophils 0, Absolute Basophils 0, Platelet Estimate VERIFIED BY SMEAR, Normocytic RBCs VERIFIED, Normochromic RBCs VERIFIED Microbiology 11/27 223 LOWER RESP: Respiratory Culture - RES 11/27 223 LOWER RESP: Gram Stain - RES 11/27 2010 URINE ROUT: Legionella Antigen - COMP 11/27 2010 URINE ROUT: Streptococcus pneumoniae Antigen (M - COMP 11/27 1515 LOWER RESP: Respiratory Culture - CAN Cancelled: NUMBER OF SQUAMOUS CELLS INDICATES POOR QUALITY SPECIMEN 11/27 1515 LOWER RESP: Gram Stain - CAN Cancelled: NUMBER OF SQUAMOUS CELLS INDICATES POOR QUALITY SPECIMEN 11/27 1439 BLOOD: Blood Culture - RECD 11/27 1420 BLOOD: Blood Culture - RECD 11/27 1311 NASOPHARYN: Influenza Virus A & B Rapid Smear - COMP Labs ordered breathing treatment ordered patient medicated with Solu-Medrol IV i d/w the pt all of her labs and xray findings and need for adission. dr west spoke with dr christian who will admit Diagnostic Imaging: Viewed by Me: Radiology Read. Discussed w/RAD: Radiology Read. Radiology Impression: PATIENT: STEPH LEOS PRESENT AGE: 67 PATIENT ACCOUNT NO: [id number] : 50 LOCATION: [facility] ORDERING PHYSICIAN: Joselo EVERETT SERVICE DATE: 11/27/17-5671 EXAM TYPE: RAD - XRY- PORTABLE CHEST XRAY EXAMINATION: XR PORTABLE CHEST CLINICAL INFORMATION: Cough, dyspnea COMPARISON: Chest x-ray 10/08/2017. CT chest 10/03/2017. TECHNIQUE: Portable frontal view of the chest was obtained. 1:57 PM FINDINGS: Pacemaker leads in right atrium and right ventricle. Heart size is enlarged. There is vascular wall calcifications of aorta. There is no significant pulmonary vascular congestion. There is emphysematous lucency of lung. Hazy airspace opacities of both lung bases greater on the right than the left. This airspace disease is new since the chest x-ray 10/08/2017. Probable small bilateral pleural effusions with minimal blunting of costophrenic angles bilateral. IMPRESSION: Bibasilar airspace disease, greater on right than left with probable small bilateral pleural effusions. DICTATED BY: Ghanshyam Andrea MD DATE/TIME DICTATED:11/27/171445 TOBACCO SCRAP SIFTER:PAPO DATE/TIME TRANSCRIBED:1445 CONFIDENTIAL, DO NOT COPY WITHOUT APPROPRIATE AUTHORIZATION. < Electronically signed in Other Vendor System> SIGNED BY: Ghanshyam Andrea MD 1451 Initial ED EKG: afib at 80, no acute st seg changes, normal axis Prior EKG: unchanged (Joselo Ramos) Departure Departure Time of Disposition: 1530 Condition: Stable Referrals: Gerard Rodas MD (PCP/Family) Departure Forms: Customer Survey General Discharge Information (Joselo Ramos) Departure Disposition: STILL A PATIENT Clinical Impression Primary Impression: Pneumonia Prescriptions: Current Visit Scripts Prednisone 1 TAB PO DAILY #30 TAB Please take from 10/12/16-10/14/17. Admission Note Spoke With: Cate ETIENNE,Bernie Castro Documentation of Exam: Documentation of any treatments & extenuating circumstances including Concerns Regarding Discharge (functional status, medication knowledge or non-compliance, living conditions, etc.) that warrant an admission rather than observation: [ ADMISSION FOR IV ABX, IV FLUIDS, PT CONSULT, PULM CONSULT] PA/POLICE MATRON Co-Sign Statement Statement: ED Attending supervision documentation- [X] I saw and evaluated the patient. I have also reviewed all the pertinent lab results and diagnostic results. I agree with the findings and the plan of care as documented in the PA's/POLICE MATRON's documentation. [X] I have reviewed the ED Record and agree with the PA's/POLICE MATRON's documentation. [] Additions or exceptions (if any) to the PAs/POLICE MATRON's note and plan are summarized below: [Patient came in with increasing shortness of breath and elevated temperature. Patient found to have leukocytosis and multilobar pneumonia. Patient required admission to the hospital for IV antibiotics.] (Ingrid ETIENNE,Francisco Romo) Critical Care Note Critical Care Note Critical Care Time: non-applicable (Tomas EVERETT,Joselo)
[2017-11-27] MEDS ORDERED: DICYCLOMINE HCL10 M1 PO (14:09)
[2017-11-27] MEDS ORDERED: KLOR-CON M2020 ME1 PO (14:09)
[2017-11-27] MEDS ORDERED: CALCIUM + D3 E1 EACH PO (14:10)
[2017-11-27 14:31] LABS: ABSOLUTE BASOPHIL COUNT 0 /CUMM (0.0-0.2); ABSOLUTE EOSINOPHIL COUNT 0 /CUMM (0.0-0.7); ABSOLUTE GRANULOCYTE CT 23.8 /CUMM (1.4-6.5); ABSOLUTE LYMPH COUNT 1.1 /CUMM (1.2-3.4); BASOPHIL % 0.1 % (0.0-2.0); EOSINOPHIL % 0 % (0-5); GRANULOCYTE % 91.9 % (42.2-75.2); MEAN CORPUSCULAR HGB CONC 31.6 G/DL (33.0-37.0); MEAN CORPUSCULAR VOLUME 91.7 FL (81.0-99.0); MEAN PLATELET VOLUME 6.6 FL (7.4-10.4); PLATELET COUNT 470 /CUMM (130-400); RBC DISTRIBUTION WIDTH 16.7 % (11.5-14.5); RED BLOOD CELL CT 4.03 /CUMM (4.20-5.40); WHITE BLOOD CELL COUNT 25.9 /CUMM (4.8-10.8)
[2017-11-27 14:37] LABS: PT 13.8 SEC (9.4-12.5)
[2017-11-27] MEDS ORDERED: EPZICOM TABLET1 EACH PO (14:42)
[2017-11-27] MEDS ORDERED: ASPIRIN EC81 M1 PO (14:42)
[2017-11-27] MEDS ORDERED: NIASPAN500 M1 PO (14:43)
[2017-11-27] MEDS ORDERED: OMEGA 3-6-9 11200 MG PO (14:43)
[2017-11-27] MEDS ORDERED: ACETAMINOPHEN-1 EAC2 PO (14:44)
--- NOTE | 2017-11-27 14:51 | RADIOLOGY REPORT ---
EXAMINATION: XR PORTABLE CHEST CLINICAL INFORMATION: Cough, dyspnea COMPARISON: Chest x-ray 10/08/2017. CT chest 10/03/2017. TECHNIQUE: Portable frontal view of the chest was obtained. 1:57 PM FINDINGS: Pacemaker leads in right atrium and right ventricle. Heart size is enlarged. There is vascular wall calcifications of aorta. There is no significant pulmonary vascular congestion. There is emphysematous lucency of lung. Hazy airspace opacities of both lung bases greater on the right than the left. This airspace disease is new since the chest x-ray 10/08/2017. Probable small bilateral pleural effusions with minimal blunting of costophrenic angles bilateral. IMPRESSION: Bibasilar airspace disease, greater on right than left with probable small bilateral pleural effusions.
--- NOTE | 2017-11-27 15:11 | History & Physical ---
Thalia ETIENNE,[facility] 11/27/17 1510: General Information and HPI MD Statement: I have seen and personally examined STEPH LEOS and documented this H&P. The patient is a 67 year old F who presented with a patient stated chief complaint of [cough, shortness of breath, pink sputum]. Source of Information: patient Exam Limitations: no limitations History of Present Illness: 67 yo F with PMH of A.fib s/p pacemaker and watchman device, not on any AC, COPD on 2L of O2, CHF, HTN, HLD, GERD, depression, IBS, OA, Anemia, hypothyroidism with recent discharge from [place] 10/08/17 presented to the ED with complains of increased dyspnea, cough and sputum production. The patient states that the day before yesterday, she woke up in the middle of the night in pain from head to toe in all of her muscles and joints. She felt weak and had difficulty going to the bathroom. She started having a sore throat with sputum (clear) production. She feels her symptoms have been getting worse. Today she also started having difficulty breathing and her sputum has turned pinkish. She lives with her daughter who is not sick. No history of sick contacts. She was previously on NOAC (Eliquis then Xarelto), however, these have been stopped after she developed pelvic hematoma (on eliquis) and later shoulder hematoma (on xarelto). Hence she is only on aspirin now. 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 diverticulosis Hepatic: NONE Renal: NONE Musculoskeletal: fibromyalgia, osteoarthritis, spinal stenosis Psychiatric: anxiety, depression, PTSD Endocrine: hypothyroidism Blood Disorders: anemia (iron deficiency) Cancer(s): 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, HPV (PER PT) Other Medical Hx: discoid lupus eczema History of MRSA: No History of VRE: No History of CDIFF: No Influenza Vaccine: 06/23/17 Tetanus Vaccine: 02/07/16 Surgical History Surgical History: appendectomy, hernia repair-hiatal tonsillectomy Past Family/Social History Family History Relations & Conditions if any MOTHER FH: CAD (coronary artery disease) FH: COPD (chronic obstructive pulmonary disease) FH: heart disease FATHER Alzheimer's disease BROTHER FH: CAD (coronary artery disease) BROTHER FH: CAD (coronary artery disease) BROTHER FH: CAD (coronary artery disease) Psychosocial History Who Do You Live With? child Services at Home: Oxygen Primary Language: Japanese ETOH Use: denies use Illicit Drug Use: denies illicit drug use Functional Ability ADLs Independent: dressing, eating, toileting, bathing. Ambulation: independent IADLs Independent: shopping, housework, finances, food prep, telephone, transportation , medication admin. Review of Systems Review of Systems Constitutional: Reports: chills, fever, weakness. EENTM: Reports: visual changes. Cardiovascular: Reports: palpitations. Denies: chest pain. Respiratory: Reports: cough, short of breath, sputum production, wheezing. GI: Reports: nausea. Denies: abdominal pain, diarrhea. Genitourinary: Reports: no symptoms. Musculoskeletal: Reports: joint pain. Skin: Reports: no symptoms. Neurological/Psychological: Reports: headache. Hematologic/Endocrine: Reports: no symptoms. Exam & Diagnostic Data Last 24 Hrs of Vital Signs/I&O Vital Signs Date Time Temp Pulse Resp B/P B/P Pulse O2 O2 Flow FiO2 Mean Ox Delivery Rate 11/27 1403 Nasal 3.0L Cannula 11/27 1349 94 Nasal 2.0L Cannula 11/27 1307 99.4 84 20 94 Nasal 2.0L Cannula Intake & Output 11/27 1600 11/27 0800 11/27 0000 Intake Total Output Total Balance Patient 112 lb Weight Weight Reported by Patient Measurement Method Physical Exam General Appearance Alert, Oriented X3, Cooperative, No Acute Distress Skin No Rashes, No Breakdown Skin Temp/Moisture Exam: Warm/Dry Sepsis Skin Exam (color): Normal for Ethnicity HEENT Atraumatic Cardiovascular Normal S1, Normal S2, No Murmurs, irregular Lungs diffuse rhonchi, mild wheezing Abdomen Soft, No Tenderness Neurological Normal Speech, Strength at 5/5 X4 Ext Extremities No Edema Assessment/Plan Assessment: 67 yo F with PMH of A.fib s/p pacemaker and watchman device, not on any AC, COPD on 2L of O2, CHF, HTN, HLD, GERD, depression, IBS, OA, Anemia, hypothyroidism with recent discharge from [place] 10/08/17 presented to the ED with complains of increased dyspnea, cough and sputum production. Assessment: 1. Pneumonia most likely Community Acquired 2. COPD on 2L of O2 at baseline 3. Electrolyte Abnormalities - mild hyponatremia/hypokalemia/hypomagnesemia 4. History of A.fib s/p pacemaker and watchman device Plan: * Admit patient to general medicine. * Continue supplemental oxygen to maintain target sats >92%. She is currently on 3L. Her baseline is 2L. Will wean of as tolerated. * Her CXR shows bibasilar airspace disease, greater on right than left * Will start her on PO Levofloxacin 750mg daily as patient has grown Pseudomonas several times in the past. Her immunocompromised state with oxygen dependence and prednisone, would cover her for Pseudomonas. * TRC/nebs as needed. * Follow up blood culture * Follow up sputum culture * Urinary strep pneumo and legionalla - pending * Replete electrolytes as needed. * Continue all home meds for chronic medical conditions. Losartan, Dignoxin, Metoprolol, Lasix, Prednisone, Levothyroxine, Roflumilast, Aspirin. Dig level was low on admission. * Diet: Regular * DVT Prophylaxis: ALPS. She has developed hematoma in the past on AC. Will avoid heparin/enoxaparin * Code: Full Code As Ranked By This Provider Problem List: 1. Bacterial pneumonia Core Measures/Misc (06/09) Acute Coronary Syndrome ACS Diagnosis: No Congestive Heart Failure Congestive Heart Failure Diagnosis No Cerebrovascular Accident CVA/TIA Diagnosis: No VTE (View Protocol) VTE Risk Factors Age>40 No Mechanical VTE Prophylaxis d/t N/A MechProphylax Ordered No VTE Pharm Prophylaxis d/t NA PharmProphylax ordered Sepsis (View protocol) Sepsis Present: No Bernie Esposito MD 11/27/17 1641: General Information and HPI Allergies/Medications Home Med list Acetaminophen With Codeine (Acetaminophen-Cod #4 Tablet) 300 MG-60 MG TABLET 1 TAB PO TID PRN PAIN (Reported) Albuterol Sulfate 2.5 MG/3 ML (0.083 %) VIAL.NEB 1 Vial INH/DANIKA PRN RESPIRATORY (Reported) Alprazolam 0.5 MG TABLET 1 TAB PO BIDP PRN ANXIETY (Reported) Aspirin (Ecotrin*) 81 MG TABLET.DR 1 TAB PO DAILY HEART HEALTH (Reported) Bupropion HCl (Wellbutrin Sr) 100 MG TABLET.ER 1 TAB PO QAM Depression/Anxiety Calcium Carb & Citrate/Vit D3 (Calcium + D3 ER Tablet) 600 MG CALCIUM-500 UNIT TABLET.ER 1 TAB PO DAILY VIT (Reported) Dicyclomine HCl 10 MG CAPSULE 1 CAP PO TID ABD SPASM (Reported) Digoxin (Lanoxin) 125 MCG TABLET 1 TAB PO 1700 a. fib Docusate Sodium (Colace) 100 MG CAPSULE 2 CAP PO QPM CONSTIPATION (Reported) Ezetimibe (Zetia) 10 MG TABLET 1 TAB PO QPM CHOLESTEROL (Reported) Ferrous Sulfate 325 MG (65 MG IRON) TABLET 1 TAB PO TID SUPPLEMENT (Reported) Fish Oil/Borage/Flax/Om3,6,9#1 ([place]ur 3-6-9 1,200 MG Softgel) 1,200 MG CAPSULE 1 CAP PO DAILY VITAMIN (Reported) Fluticasone/Salmeterol (Advair 250-50 Diskus) 250 MCG-50 MCG/DOSE BLST.W.DEV 1 PUF INH BID BREATHING PROBLEMS (Reported) Furosemide 40 MG TABLET 1 TAB PO BID DIURETIC (Reported) Guaifenesin (Mucinex) 600 MG TAB.ER.12H 2 TAB PO BID EXPECTORANT (Reported) Levothyroxine Sodium 100 MCG TABLET 1 TAB PO DAILY AC THYROID (Reported) Losartan Potassium 50 MG TABLET 1 TAB PO DAILY HEART (Reported) Metoprolol Tartrate 25 MG TABLET 25 MG PO BID Atrial fibrilation Montelukast Sodium 10 MG TABLET 1 TAB PO DAILY COPD (Reported) Niacin (Niaspan) 500 MG TAB.ER.24H 1 TAB PO DAILY VITAMIN (Reported) Nitroglycerin (Nitro-Dur) 0.6 MG/HOUR PATCH.TD24 1 PATCH TOP DAILY HEART ( Reported) Nitroglycerin (Nitrostat) 0.4 MG TAB.SUBL 1 TAB SL AD PRN CHEST PAIN ( Reported) 1st sign of attack; may repeat every 5 minutes until relief; if pain persists after 3 tablets in 15 minutes, prompt medical att [place]-3 Fatty Acids/Fish Oil (Fish Oil 1,200 MG Softgel) 360 MG-1,200 MG CAPSULE. 1 CAP PO DAILY SUPPLEMENT (Reported) Omeprazole 40 MG CAPSULE.DR 1 CAP PO DAILY GI (Reported) Polyethylene Glycol 3350 (Miralax) 17 GRAM/DOSE POWDER 17 GM PO DAILY constipation mix with water, juice, soda, coffee or tea Potassium Chloride (Klor-Con M20) 20 MEQ TAB.ER.PRT 1 TAB PO DAILY VITAMIN ( Reported) Pravastatin Sodium (Pravachol) 40 MG TABLET 1 TAB PO QPM CHOLESTEROL ( Reported) Prednisone 10 MG TABLET 1 TAB PO DAILY COPD Please take from 10/12/16-10/14/17. Roflumilast (Daliresp) 500 MCG TABLET 1 TAB PO DAILY COPD (Reported) . Sertraline HCl (Zoloft) 100 MG TABLET 2 TAB PO DAILY DEPRESSION (Reported) Tiotropium Drake (Spiriva) 18 MCG CAP.W.DEV 1 CAP INH DAILY copd Reason to Stop at ADM:[facility] NEBS ORDERS Vitamin E (Dl,Tocopheryl Acet) (Vitamin E) 400 UNIT CAPSULE 1 TAB PO DAILY SUPPLEMENT (Reported) Attending MD Review Statement Attending Statement Attending MD Statement: examined this patient, discuss w/resident/PA/SUPPLIER DIVERSITY DIRECTOR, agreed w/resident/PA/SUPPLIER DIVERSITY DIRECTOR, reviewed EMR data (avail), reviewed images Attending Assessment/Plan: 67-year-old female extensive past medical history of severe COPD, chronic steroid dependence and on chronic home oxygen with 2 L, atrial fibrillation with a watchman procedure and GI bleed with chronic anemia, not on ac. She was here from October 03 to October 08 where she was treated for anemia and acute hypoxemic respiratory failure. She returns today with complaints of cough with a pinkish sputum and says she feels like she is having pneumonia. Has a white count of 25,000 and a chest x-ray that shows by basilar airspace disease. Given that she is chronically colonized with Pseudomonas and her previous sputum cultures have grown Pseudomonas will cover her with antipseudomonal abx - Levofloxacin for a possible pseudomonal -gram-negative pneumonia. We'll continue her Lasix, losartan, metoprolol and dig. Will watch the white count closely. Will inform Dr. Whitney her executive director of marketing of her admission. We'll check a urine Legionella antigen and strep pneumo antigen. Put her on Alps for DVT prophylaxis and follow closely. Robi ETIENNE,Jesse 11/27/17 1823: Resident Review Statement Resident Statement: examined this patient, discussed with internet marketing analyst, agreed with internet marketing analyst, amended to note Other Findings: This is a 67-year-old lady with extensive medical history including severe COPD on 2L home oxygenatrial fibrillation with anticoagulation contraindicated due to GI bleed/hematomas/ chronic anemia now status post watchman device placement and PPM, recent [place] admissions in 2016 for Pseudomonas pneumonia and September 2017 for acute on chronic anemia and acute hypoxic respiratory, his is to [place] ED for evaluation of 2 day history of progressively worsening shortness of breath. Stated symptoms include cough and pinkish sputum production, chills but no fevers. Denied any recent URI or sick contacts or recent travel. No chest pain, lower extremity edema, or any unintentional weight gain, or PND. Impression Shortness of breath. She has multifactorial etiology to predispose her to increase shortness of breath. However in the setting of radiological finding suggestive of bilateral opacity, her symptoms are most likely secondary to an active infectious etiology. COPD exacerbation is always a possibility given her history of severe COPD, however on physical examination she did not appear to be in COPD exacerbation (no wheezing was appreciated). Acute decompensated CHF is always a possibility given her CHF history, however the lack of elevated JVD, lower extremity edema, no orthopnea, chest x-ray active for congestion, and no crackles on auscultation, makes CHF exacerbation a less likely possibility. Pneumonia. Clinical symptoms of 2 day history of recently worsening shortness of breath, chills, cough with sputum production in the context of radiological finding of opacity is highly suggestive of pneumonia. Leukocytosis in this patient can be attributed to either infectious etiology, however given that she is on prednisone 10 mg daily it is also possible that the increase of white count or be secondary to stress demyelination seen with steroid use. Her recent history of Pseudomonas infection, severe COPD, and daily steroid use warrants a strong suspicion for Pseudomonas infection. Hypokalemia. Likely secondary to Lasix use and precipitated by hypomagnesemia. Hypomagnesemia. Could be secondary to poor nutrition. It is also possible that her daily use of PPI could be the cause of her hypomagnesemia. There is sufficient data currently which links chronic PPI use for more than one year with hypomagnesemia. Hyponatremia. Mild and a symptomatic. Possibly be secondary to hypovolemia. History of chronic diseases: A. fib, CHF , COPD Plan Admit to general medicine floor Continue O2 supplementation to keep sats above 88% Start levofloxacin 750 mg daily Replete magnesium with a goal of 2 and above given the history of A. fib Replete Potassium 40 meq, with a goal of 4 and above given the history of A. fib Follow-up sputum and blood cultures Will obtain strep and Legionella antigens Continue all home medication regimen TRC nebs DVT: Alps (given the extensive history of hematomas, chronic anemia, and GI bleed we'll hold off any pharmacological agents) CODE STATUS: Full
--- NOTE | 2017-11-27 15:31 | Admission Certification ---
Admission Certification Certification Statement - As attending physician, I certify that at the time of - admission, based on clinical presentation, severity of - symptoms, need for further diagnostic testing and - therapeutic interventions, and risk of adverse outcomes - without in-hospital treatment, in my clinical assessment, - this patient requires an acute hospital stay for a minimum - of two nights or longer. I have also considered psychsocial - factors such as support system, advanced age, financial - issues, cognitive issues, and failed out-patient treatments, - past re-admission history, safety of patient, and lack of - compliance as applicable. Specific rationale supporting this admission is: PNEUMONIA IN PT WITH COPD AND AFIB
[2017-11-27] MEDS ORDERED: PREDNISONE10 M2 PO (17:56)
[2017-11-27 18:22] VITALS: BP 123/66
[2017-11-27 21:34] VITALS: BP 153/75
[2017-11-28 06:31] VITALS: BP 148/76
--- NOTE | 2017-11-28 08:29 | PN- Housestaff ---
Thalia ETIENNE,[facility] 11/28/17 0828: Subjective Follow-up For: Pneumonia Subjective: Patient was seen and examined at bedside. Reports feeling better than yesterday. States she got very little sleep last night as she had difficulty sleeping and inquires if she can have melatonin for sleep. Denies any active complaints. Review of Systems Constitutional: Reports: no symptoms. Objective Last 24 Hrs of Vital Signs/I&O Vital Signs Date Time Temp Pulse Resp B/P B/P Pulse O2 O2 Flow FiO2 Mean Ox Delivery Rate 11/28 0934 97.7 83 20 148/76 11/28 0934 97.7 83 20 148/76 11/28 0846 Nasal 2.0L Cannula 11/28 0800 Nasal 2.0L Cannula 11/28 0631 97.7 83 20 148/76 99 Nasal 2.0L Cannula 11/28 0000 99 Nasal 2.0L Cannula 11/27 2212 86 150/70 11/27 2134 97.5 85 20 153/75 99 Nasal 2.0L Cannula 11/27 1822 98.6 85 18 123/66 97 Nasal 2.0L Cannula 11/27 1810 Nasal 2.0L Cannula 11/27 1751 98.0 82 18 124/57 100 Nasal Cannula 11/27 1403 Nasal 3.0L Cannula 11/27 1349 94 Nasal 2.0L Cannula 11/27 1307 99.4 84 20 94 Nasal 2.0L Cannula Intake & Output 11/28 1600 08 0800 08 0000 Intake Total 260 750 Output Total 600 Balance -340 750 Intake, IV 60 50 Intake, Oral 200 700 Output, Urine 600 Patient 112 lb Weight Physical Exam General Appearance: Alert, Oriented X3, Cooperative, No Acute Distress Skin: No Rashes, No Breakdown Skin Temp/Moisture Exam: Warm/Dry Sepsis Skin Exam (color): Normal for Ethnicity HEENT: Atraumatic Cardiovascular: Normal S1, Normal S2, No Murmurs, irregular Lungs: diffuse rhonchi and wheezing Abdomen: Soft, No Tenderness Neurological: Normal Speech Extremities: No Edema Assessment/Plan Assessment: 67 yo F with PMH of A.fib s/p pacemaker and watchman device, not on any AC, COPD on 2L of O2, CHF, HTN, HLD, GERD, depression, IBS, OA, Anemia, hypothyroidism with recent discharge from [place] 10/08/17 presented to the ED with complains of increased dyspnea, cough and sputum production. Assessment: 1. Pneumonia most likely Community Acquired 2. COPD on 2L of O2 at baseline 3. Electrolyte Abnormalities - mild hyponatremia/hypokalemia/hypomagnesemia 4. History of A.fib s/p pacemaker and watchman device Plan: * Continue supplemental oxygen to maintain target sats >92%. She is currently on 2L which is her baseline. * Her CXR showed bibasilar airspace disease, greater on right than left * Continue PO Levofloxacin 750mg daily. She seems to respond to it. Her white count has slightly trended down today. * TRC/nebs as needed. * Follow up blood culture - pending * Follow up sputum culture - pending * Urinary strep pneumo and legionalla - negative. * Replete electrolytes as needed. She still has mild hyponatremia. * Continue all home meds for chronic medical conditions. Losartan, Dignoxin, Metoprolol, Lasix, Prednisone, Levothyroxine, Roflumilast, Aspirin. Dig level was low on admission. * Diet: Regular * DVT Prophylaxis: ALPS. She has developed hematoma in the past on AC. Will avoid heparin/enoxaparin * Code: Full Code Problem List: 1. Bacterial pneumonia Pain Ratin Pain Location: none Pain Goal: Remain pain free Pain Plan: none Tomorrow's Labs & Rationales: CBC, BEP Jovita Stephens 11/28/17 1055: Attending MD Review Statement Attending Statement Attending MD Statement: examined this patient, discuss w/resident/PA/ORGANIZATIONAL EFFECTIVENESS CONSULTANT, agreed w/resident/PA/ORGANIZATIONAL EFFECTIVENESS CONSULTANT, discussed with family, reviewed EMR data (avail), discussed with nursing, discussed with case mgmt, reviewed images, amended to note Attending Assessment/Plan: 67-year-old female extensive past medical history of severe COPD, chronic steroid dependence and on chronic home oxygen with 2 L, atrial fibrillation with a watchman procedure and GI bleed with chronic anemia, not on ac admitted for dyspnea , fever and possible gram negative pneumnia. Has a white count of 25,000 and a chest x-ray that shows by basilar airspace disease. Patient clinically improving. She is on her 2l home oxygen. Patient continue with PO Levofloxacin for a possible pseudomonal -gram-negative pneumonia. f/u sputum cultures. We'll continue her Lasix, losartan, metoprolol and dig. f/u CBC. O/p pulmonary follow up at discharge. gi/dvt prophyalxis full code. Plan of care d./wed patient bedside. care d./wed patient bedside.
[2017-11-28 09:06] LABS: ABSOLUTE BASOPHIL COUNT 0 /CUMM (0.0-0.2); ABSOLUTE EOSINOPHIL COUNT 0 /CUMM (0.0-0.7); ABSOLUTE GRANULOCYTE CT 19.1 /CUMM (1.4-6.5); ABSOLUTE LYMPH COUNT 1.1 /CUMM (1.2-3.4); ABSOLUTE MONOCYTE COUNT 0.9 /CUMM (0.10-0.60); BASOPHIL % 0 % (0.0-2.0); EOSINOPHIL % 0 % (0-5); GRANULOCYTE % 90.5 % (42.2-75.2); MEAN CORPUSCULAR HGB 29.6 PG (27.0-31.0); MEAN CORPUSCULAR HGB CONC 32.4 G/DL (33.0-37.0); MEAN CORPUSCULAR VOLUME 91.2 FL (81.0-99.0); MEAN PLATELET VOLUME 6.9 FL (7.4-10.4); PLATELET COUNT 436 /CUMM (130-400); RBC DISTRIBUTION WIDTH 16.6 % (11.5-14.5); RED BLOOD CELL CT 3.72 /CUMM (4.20-5.40)
[2017-11-28 11:26] LABS: WHITE BLOOD CELL COUNT 21.2 /CUMM (4.8-10.8)
--- NOTE | 2017-11-28 13:50 | Discharge Summary ---
Visit Information Visit Dates Admission Date: 11/27/17 Discharge Date: 11/30/17 Hospital Course Course Attending Physician: Jovita Stephens MD Primary Care Physician: Gerard Rodas MD Hospital Course: Ms Escobar is a 67 yo F with PMH of A.fib s/p pacemaker and watchman device, not on any AC, COPD on 2L of O2, CHF, HTN, HLD, GERD, depression, IBS, OA, Anemia, hypothyroidism with recent discharge from [facility] 10/08/17 presented to the ED with complains of increased dyspnea, cough and sputum production. Community Acquired Pneumonia: Patient presented with complains of increased dyspnea and productive cough. Her CXR showed bibasilar airspace disease, greater on right than left. Her oxygen was increased to 3L to maintain her sats > 92%. She has grown Pseudomonas several times in the past and hence she was started on PO levofloxacin. Patient responded well to treatment. Her oxygen requirement, rapidly decreased down to her baseline of 2L. She had a brief and uncomplicated hospital stay. She was discharged on oral Levofloxacin to be completed as outpatient. She was recommended to follow up with her PCP and database software technician within one week of discharge. Electrolyte Abnormalities (Hypokalemia/Hypomagnesemia): She was found to be hypokalemic and hypomagnesemic on admission. Her electrolytes were monitored each day and repleted as necessary. Chronic Medical Conditions (CHF, HTN, HLD, GERD, depression, hypothyroidism): All home medications were continued during her admission Allergies: Coded Allergies: menotropins (HIVES FROM PERGONAL 11/15/15) apixaban (HEMATOMA TO HIP 02/02/17) Significant Procedures: SERVICE DATE: 11/27/17-4050 EXAM TYPE: RAD - XRY-PORTABLE CHEST XRAY FINDINGS: Pacemaker leads in right atrium and right ventricle. Heart size is enlarged. There is vascular wall calcifications of aorta. There is no significant pulmonary vascular congestion. There is emphysematous lucency of lung. Hazy airspace opacities of both lung bases greater on the right than the left. This airspace disease is new since the chest x-ray 10/08/2017. Probable small bilateral pleural effusions with minimal blunting of costophrenic angles bilateral. IMPRESSION: Bibasilar airspace disease, greater on right than left with probable small bilateral pleural effusions. Disposition Summary Disposition Principal Diagnosis: Community Acquired Pneumonia Hypokalemia Hypomagnesemia Additional Diagnosis: Atrial Fibrilliation COPD CHF, HTN, HLD, GERD, depression, IBS, OA, Anemia, hypothyroidism Discharge Disposition: home or self care Discharge Instructions General Discharge Information Code Status: Full Code Patient's Diet: Regular Patient's Activity: As tolerated Follow-Up Instructions/Appts: Please follow up with your PCP within one week of discharge. Medications at Discharge Discharge Medications: Continue taking these medications: Levothyroxine Sodium (Levothyroxine Sodium) 100 MCG TABLET 1 Tablet ORAL DAILY BEFORE BREAKFAST Comments: Last Taken: 11/30/17 Time: 0630 AM Sertraline HCl (Zoloft) 100 MG TABLET 2 Tablet ORAL DAILY Comments: Last Taken: 11/30/17 Time: 9AM Ezetimibe (Zetia) 10 MG TABLET 1 Tablet ORAL Every night Comments: Last Taken: 11/29/17 Time: 9PM Ferrous Sulfate (Ferrous Sulfate) 325 MG (65 MG IRON) TABLET 1 Tablet ORAL THREE TIMES DAILY Comments: Last Taken: 11/30/17 Time: 9AM Pravastatin Sodium (Pravachol) 40 MG TABLET 1 Tablet ORAL Every night Comments: Last Taken: 11/29/17 Time: 430 PM Montelukast Sodium (Montelukast Sodium) 10 MG TABLET 1 Tablet ORAL DAILY Comments: Last Taken: 11/29/17 Time: 9 PM Vitamin E (Dl,Tocopheryl Acet) (Vitamin E) 400 UNIT CAPSULE 1 Tablet ORAL DAILY Comments: Last Taken: 11/30/17 Time: 9 AM Guaifenesin (Mucinex) 600 MG TAB.ER.12H 2 Tablet ORAL TWICE DAILY Comments: Last Taken: 11/30/17 Time: 9AM Tiotropium [place] (Spiriva) 18 MCG CAP.W.DEV 1 Capsule Inhale through mouth DAILY Qty = 3 Instructions: Reason to Stop at ADM:TRC NEBS ORDERS Comments: Last Taken: 11/30/17 Time: 9AM Fluticasone/Salmeterol (Advair 250-50 Diskus) 250 MCG-50 MCG/DOSE BLST.W.DEV 1 Puff Inhale through mouth TWICE DAILY Comments: NOT GIVEN IN HOSPITAL Albuterol Sulfate (Albuterol Sulfate) 2.5 MG/3 ML (0.083 %) VIAL.NEB 1 Vial Inhale Solution as needed for RESPIRATORY Comments: Last Taken: 11/30/17 Time: 12PM Nitroglycerin (Nitro-Dur) 0.6 MG/HOUR PATCH.TD24 1 PATCH On the skin DAILY Comments: Last Taken: 11/30/17 Time: 9AM Omeprazole (Omeprazole) 40 MG CAPSULE.DR 1 Capsule ORAL DAILY Comments: Last Taken: 11/30/17 Time: 0630 AM [place]hill-3 Fatty Acids/Fish Oil (Fish Oil 1,200 MG Softgel) 360 MG-1,200 MG CAPSULE.DR 1 Capsule ORAL DAILY Comments: NOT GIVEN IN HOSPITAL Furosemide (Furosemide) 40 MG TABLET 1 Tablet ORAL TWICE DAILY Comments: Last Taken: 10/08/17 Time: 0630 AM Nitroglycerin (Nitrostat) 0.4 MG TAB.SUBL 1 Tablet SUBLINGUAL As Directed as needed for CHEST PAIN Instructions: 1st sign of attack; may repeat every 5 minutes until relief; if pain persists after 3 tablets in 15 minutes, prompt medical att Comments: NOT GIVEN IN HOSPITAL Roflumilast (Daliresp) 500 MCG TABLET 1 Tablet ORAL DAILY Qty = 30 Instructions: . Comments: Last Taken: 11/30/17 Time: 9 AM Bupropion HCl (Wellbutrin Sr) 100 MG TABLET.ER 1 Tablet ORAL Every Morning Qty = 90 Comments: Last Taken: 11/30/17 Time: 9AM Alprazolam (Alprazolam) 0.5 MG TABLET 1 Tablet ORAL 2 x Daily as needed as needed for ANXIETY Comments: Last Taken: 11/30/17 Time: 9 AM Metoprolol Tartrate (Metoprolol Tartrate) 25 MG TABLET 25 Milligram ORAL TWICE DAILY Qty = 60 Comments: Last Taken: 11/30/17 Time: 9 AM Digoxin (Lanoxin) 125 MCG TABLET 1 Tablet ORAL 5 PM Qty = 30 Comments: Last Taken: 11/29/17 Time: 5PM Polyethylene Glycol 3350 (Miralax) 17 GRAM/DOSE POWDER 17 Gram ORAL DAILY Qty = 255 Instructions: mix with water, juice, soda, coffee or tea Comments: Last Taken: 11/30/17 Time: 9 AM Losartan Potassium (Losartan Potassium) 50 MG TABLET 1 Tablet ORAL DAILY Qty = 90 Comments: Last Taken: 11/30/17 Time: 9AM Docusate Sodium (Colace) 100 MG CAPSULE 2 Capsule ORAL Every night Comments: Last Taken: 11/29/17 Time: 9PM Potassium Chloride (Klor-Con M20) 20 MEQ TAB.ER.PRT 1 Tablet ORAL DAILY Comments: Last Taken: 11/30/17 Time: 9 AM Dicyclomine HCl (Dicyclomine HCl) 10 MG CAPSULE 1 Capsule ORAL THREE TIMES DAILY Comments: Last Taken: 11/30/17 Time: 9 AM Calcium Carb & Citrate/Vit D3 (Calcium + D3 ER Tablet) 600 MG CALCIUM-500 UNIT TABLET.ER 1 Tablet ORAL DAILY Comments: NOT TAKEN IN HOSPITAL Aspirin (Ecotrin*) 81 MG TABLET.DR 1 Tablet ORAL DAILY Comments: Last Taken: 11/30/17 Time: 9 PM Niacin (Niaspan) 500 MG TAB.ER.24H 1 Tablet ORAL DAILY Comments: Last Taken: 11/30/17 Time: 1200 PM Fish Oil/Borage/Flax/Om3,6,9#1 ([place]hill 3-6-9 1,200 MG Softgel) 1,200 MG CAPSULE 1 Capsule ORAL DAILY Comments: NOT TAKEN IN HOSPITAL Acetaminophen With Codeine (Acetaminophen-Cod #4 Tablet) 300 MG-60 MG TABLET 1 Tablet ORAL THREE TIMES DAILY as needed for PAIN Comments: NOT TAKEN IN HOSPITAL Prednisone (Prednisone) 10 MG TABLET 1 Tablet ORAL DAILY Qty = 30 Comments: Last Taken: 11/30/17 Time: 1230 PM This prescription has been renewed Start taking the following new medications: Levofloxacin (Levaquin) 500 MG TABLET 750 Milligram ORAL DAILY Qty = 4 No Refills Comments: Last Taken: 11/30/17 Time: 9 AM Copies To: Gerard Rodas MD Attending MD Review Statement Documenting Attending: Jovita Stephens MD Other Findings: Patient with overall improvement. Patient is on 2l oxygen at home baseline and desaturates on exertion. Patient is on PO abx for possible gram negative pneumonia. Patient can resume steroids Prednisone 10 mg daily home dose. Patient is vitally stable for discharge. Patient advised to follow up with her PCP and Pulmonary at discharge. Patient also requesting pain meds which needs to be followed up with Pain management she sees as outpatient. She appears to be medically stbale for discharge.
[2017-11-28 13:59] VITALS: BP 110/62
[2017-11-28 22:24] VITALS: BP 118/65
[2017-11-29 06:49] VITALS: BP 114/68
--- NOTE | 2017-11-29 07:11 | PN- Housestaff ---
Thalia ETIENNE,[facility] 11/29/17 0710: Subjective Follow-up For: Pneumonia Subjective: Patient was seen and examined at bedside. She reports doing okay. States coughed a lot last night and that her sputum that had cleared up yesterday, is pink again today. She feels a bit more short of breath today. Review of Systems Constitutional: Reports: no symptoms. Respiratory: Reports: cough, short of breath, sputum production. Objective Last 24 Hrs of Vital Signs/I&O Vital Signs Date Time Temp Pulse Resp B/P B/P Pulse O2 O2 Flow FiO2 Mean Ox Delivery Rate 11/29 830 98.0 84 20 114/68 11/29 0831 98.0 84 20 114/68 11/29 0742 97 Nasal 2.0L Cannula 11/29 0649 98.0 84 20 114/68 97 Nasal 2.0L Cannula 11/28 2224 98.0 77 24 118/65 97 Nasal 2.0L Cannula 11/28 2209 77 118/65 11/28 1658 97.5 83 20 110/62 /08 1645 98 Nasal 2.0L Cannula 11/28 1359 110/62 /08 1355 97.5 83 20 97 Nasal 2.0L Cannula 11/28 0934 97.7 83 20 148/76 /08 0934 97.7 83 20 148/76 08 0846 Nasal 2.0L Cannula Intake & Output 11/29 1600 11/29 0800 11/29 0000 Intake Total 250 250 Output Total Balance 250 250 Intake, IV 10 10 Intake, Oral 240 240 Physical Exam General Appearance: Alert, Oriented X3, Cooperative, No Acute Distress Skin: No Rashes, No Breakdown Skin Temp/Moisture Exam: Warm/Dry Sepsis Skin Exam (color): Normal for Ethnicity HEENT: Atraumatic Cardiovascular: Normal S1, Normal S2, No Murmurs Lungs: decreased air entry with mild wheezing Abdomen: Soft, No Tenderness Neurological: Normal Speech Extremities: No Edema Assessment/Plan Assessment: 67 yo F with PMH of A.fib s/p pacemaker and watchman device, not on any AC, COPD on 2L of O2, CHF, HTN, HLD, GERD, depression, IBS, OA, Anemia, hypothyroidism with recent discharge from [facility] 10/08/17 presented to the ED with complains of increased dyspnea, cough and sputum production. Assessment: 1. Pneumonia most likely Community Acquired 2. COPD on 2L of O2 at baseline 3. Electrolyte Abnormalities - hyponatremia/hypokalemia/hypomagnesemia - resolved. 4. History of A.fib s/p pacemaker and watchman device Plan: * Continue supplemental oxygen to maintain target sats >92%. She is currently on 2L which is her baseline. * Her ambulatory sats showed a significant drop to 82% with minimal walking. * Her CXR showed bibasilar airspace disease, greater on right than left * Continue PO Levofloxacin 750mg daily. She seems to respond to it. Her white count has slightly trended down further today. * TRC/nebs as needed. * Follow up blood culture - pending * sputum culture - light growth of mixed ines with some yeast * Urinary strep pneumo and legionalla - negative. * Replete electrolytes as needed. * Continue all home meds for chronic medical conditions. Losartan, Dignoxin, Metoprolol, Lasix, Prednisone, Levothyroxine, Roflumilast, Aspirin. * Diet: Regular * DVT Prophylaxis: ALPS. She has developed hematoma in the past on AC. Will avoid heparin/enoxaparin * Code: Full Code Problem List: 1. Bacterial pneumonia Pain Ratin Pain Location: none Pain Goal: Remain pain free Pain Plan: none Tomorrow's Labs & Rationales: CBC, BEP Jovita Stephens 11/29/17 1134: Attending MD Review Statement Attending Statement Attending MD Statement: examined this patient, discuss w/resident/PA/PROFESSOR OF BUSINESS ADMINISTRATION, agreed w/resident/PA/PROFESSOR OF BUSINESS ADMINISTRATION, discussed with family, reviewed EMR data (avail), discussed with nursing, discussed with case mgmt, reviewed images, amended to note Attending Assessment/Plan: 67-year-old female extensive past medical history of severe COPD, chronic steroid dependence and on chronic home oxygen with 2 L, atrial fibrillation with a watchman procedure and GI bleed with chronic anemia, not on ac admitted for dyspnea , fever and possible gram negative pneumnia. Has a white count of 25,000 and a chest x-ray that shows by basilar airspace disease. Patient clinically improving. She is on her 2l home oxygen. Patient continue with PO Levofloxacin for a possible pseudomonal -gram-negative pneumonia. f/u sputum cultures. We'll continue her Lasix, losartan, metoprolol and dig. f/u CBC with mild improvement. Check walking pulse oximtery. O/p pulmonary follow up at discharge. Plan of care d./wed patient bedside. gi/dvt prophyalxis full code. Patient anticipate dc soon.
--- NOTE | 2017-11-29 08:17 | Patient Discharge Instructions ---
Discharge Instructions General Discharge Information You were seen/treated for: Pneumonia Special Instructions: Please follow up with your PCP and seal mixer within one week of discharge. Diet Continue normal diet: Yes Recommended Diet: Heart Healthy Activity Full Activity/No Limits: Yes Acute Coronary Syndrome Inclusion Criteria At DC or during hospital stay patient has or had the following: ACS DIAGNOSIS No Discharge Core Measures Meds if any: Prescribed or Continued at Discharge Meds if any: NOT Prescribed or Continued at Discharge Congestive Heart Failure Inclusion Criteria At DC or during hospital stay patient has or had the following: CHF DIAGNOSIS No Discharge Core Measures Meds if any: Prescribed or Continued at Discharge Meds if any: NOT Prescribed or Continued at Discharge Cerebrovascular accident Inclusion Criteria At DC or during hospital stay patient has or had the following: CVA/TIA Diagnosis No Discharge Core Measures Meds if any: Prescribed or Continued at Discharge Meds if any: NOT Prescribed or Continued at Discharge Venous thromboembolism Inclusion Criteria VTE Diagnosis No VTE Type NONE VTE Confirmed by (Test) NONE Discharge Core Measures - Per Current guidelines, there needs to be overlap - treatment for the first 5 days of Warfarin therapy. - If discharged on Warfarin prior to 5 days of - overlap therapy, the patient will need to be - assessed for post discharge needs including - *Post discharge parental anticoagulation - *Warfarin and/or parental anticoagulation education - *Follow up date to check INR post discharge At least 5 days overlap therapy as Inpatient No Meds if any: Prescribed or Continued at Discharge Note: Overlap Therapy is Warfarin and Anticoagulant Meds if any: NOT Prescribed or Continued at Discharge
[2017-11-29 09:03] LABS: HEMATOCRIT 38.6 % (37-47); MEAN CORPUSCULAR HGB 29.6 PG (27.0-31.0); MEAN PLATELET VOLUME 6.7 FL (7.4-10.4)
[2017-11-29 09:18] LABS: ABSOLUTE BASOPHIL COUNT 0 /CUMM (0.0-0.2); ABSOLUTE EOSINOPHIL COUNT 0.2 /CUMM (0.0-0.7); ABSOLUTE GRANULOCYTE CT 14.2 /CUMM (1.4-6.5); ABSOLUTE LYMPH COUNT 1.6 /CUMM (1.2-3.4); ABSOLUTE MONOCYTE COUNT 1.3 /CUMM (0.10-0.60); BASOPHIL % 0.1 % (0.0-2.0); GRANULOCYTE % 82.2 % (42.2-75.2); MEAN CORPUSCULAR HGB CONC 31.8 G/DL (33.0-37.0); MEAN CORPUSCULAR VOLUME 93.1 FL (81.0-99.0); PLATELET COUNT 539 /CUMM (130-400); RBC DISTRIBUTION WIDTH 16.4 % (11.5-14.5); RED BLOOD CELL CT 4.15 /CUMM (4.20-5.40)
[2017-11-29] MEDS ORDERED: LEVAQUIN500 M1 PO (10:05)
[2017-11-29 10:25] LABS: WHITE BLOOD CELL COUNT 17.3 /CUMM (4.8-10.8)
[2017-11-29] MEDS ORDERED: EPZICOM TABLET1 EACH PO (10:39)
[2017-11-29] MEDS ORDERED: PREDNISONE10 M2 PO ×2 (10:41→10:42)
[2017-11-29 14:04] VITALS: BP 107/61
--- NOTE | 2017-11-29 21:19 | Cons- Cardiology ---
General Information and HPI Consulting Request Date of Consult: 11/29/17 Requested By: Jovita Stephens MD History of Present Illness: Cynthia is a 67 year old female with history of hypertension, dyslipidemia, tobacco abuse, and coronary artery disease, status post inferior wall myocardial infarction which she experienced in 1995. This patient also has severe emphysematous COPD. Finally, this patient has atrial fibrillation. Cynthia presented to [facility] with shortness of breath, headache, weakness and malaise. She has a congested cough with difficulty mobilizing her secretions. She was also generally achy. The patient does have a sore chest from coughing without any classic anginal symptoms consistent with ischemia. No lightheadedness or palpitations. She ruled out for Influenza A and B by rapid flu test. It should be noted that this patient received a Watchman atrial occluder device placed about three month ago. This device was necessary to allow the patient to be off anticoagulation without the risk of stroke. The device was needed due to about 5 episodes of prior bleeding including GI bleeds, hemoptysis and psoas muscle bleed. It should also be noted that this patient has had multiple recent admissions for shortness of breath and pneumonia. In consideration of Cynthia's diagnosis of atrial fibrillation rate control with chronic anticoagulation was initially tried. Due to multiple issues with bleeding we subsequently cardioverted this patient and placed her on Tikosyn to maintain a sinus rhythm and avoid the need for anticoagulation. It should be noted that this patient also tends to feel much improved when in a sinus rhythm. During a recent hospital we needed to discontinue Tykosyn due to its ineffectiveness in maintaining a sinus rhythm, its proarrhythmia with episodes of NSVT on the medication and its incompatability with Cipro that was needed for treatment of the patient's infection. Cynthia has a 90% ostial PDA on her recent cardiac catheterization. This is a small vessel that is not amenable to PCI. Her other coronaries are patent. Finally, this patient went from [facility] where the above was done to [facility] where she developed a spontaneous right psoas bleed that occured off anticoagulation. She has also had issues with GI bleeding. It should be noted that this patient underwent a recent cardiac catheterization which showed patent coronaries with a normal EF. At [facility], during an exacerbation of her COPD she did demonstrate mild decompensated CHF and a small rise in cardiac enzymes consistent with NSTEMI. Her episodes of respiratory distress are frequent. It may be recalled that on a prior but recent hospital visit she was found unresponsive with hypertcapneic respiratory failure. Cynthia did have a recent stress test that showed a small fixed inferior defect without ischemia that is not unexpected in the setting of her known 90% occluded PDA. Her EF was normal at 72%. At baseline, Cynthia does have shortness of breath which has been attributed to her COPD. This patient has also had some previous bradycardia which has improved to some degree after stopping metoprolol. In absolute terms, this patient will become winded going up 12 steps or if she goes up a hill. In the past, the patient also reported some mild exertional chest pressure that occurs approximately 2 times a month. The patient's cardiac cath showed a short normal left main. The LAD was a large vessel that wrapped around the apex and supplied scant [id number] transseptal collaterals. The left circumflex was a large vessel with luminal irregularities. The right coronary artery was dominant with a 50% proximal stenosis and a 90% ostial stenosis of the PDA. The RV marginal branch initially had an 80% to 90% stenosis which was reduced post angioplasty to a 70% non flow- limiting stenosis. The RV marginal branch was a large vessel that did appear to go to the inferior wall. The PDA on the other hand was a small vessel, although dominant in distribution. It should be noted that a previous cardiac catheterization was performed in [address] Tripathi, who also saw evidence of an occluded PDA. Allergies/Medications Allergies: Coded Allergies: menotropins (HIVES FROM PERGONAL 11/15/15) apixaban (HEMATOMA TO HIP 02/02/17) Home Med List: Acetaminophen With Codeine (Acetaminophen-Cod #4 Tablet) 300 MG-60 MG TABLET 1 TAB PO TID PRN PAIN (Reported) Albuterol Sulfate 2.5 MG/3 ML (0.083 %) VIAL.NEB 1 Vial INH/DANIKA PRN RESPIRATORY (Reported) Alprazolam 0.5 MG TABLET 1 TAB PO BIDP PRN ANXIETY (Reported) Aspirin (Ecotrin*) 81 MG TABLET.DR 1 TAB PO DAILY HEART HEALTH (Reported) Bupropion HCl (Wellbutrin Sr) 100 MG TABLET.ER 1 TAB PO QAM Depression/Anxiety Calcium Carb & Citrate/Vit D3 (Calcium + D3 ER Tablet) 600 MG CALCIUM-500 UNIT TABLET.ER 1 TAB PO DAILY VIT (Reported) Dicyclomine HCl 10 MG CAPSULE 1 CAP PO TID ABD SPASM (Reported) Digoxin (Lanoxin) 125 MCG TABLET 1 TAB PO 1700 a. fib Docusate Sodium (Colace) 100 MG CAPSULE 2 CAP PO QPM CONSTIPATION (Reported) Ezetimibe (Zetia) 10 MG TABLET 1 TAB PO QPM CHOLESTEROL (Reported) Ferrous Sulfate 325 MG (65 MG IRON) TABLET 1 TAB PO TID SUPPLEMENT (Reported) Fish Oil/Borage/Flax/Om3,6,9#1 ([place] 3-6-9 1,200 MG Softgel) 1,200 MG CAPSULE 1 CAP PO DAILY VITAMIN (Reported) Fluticasone/Salmeterol (Advair 250-50 Diskus) 250 MCG-50 MCG/DOSE BLST.W.DEV 1 PUF INH BID BREATHING PROBLEMS (Reported) Furosemide 40 MG TABLET 1 TAB PO BID DIURETIC (Reported) Guaifenesin (Mucinex) 600 MG TAB.ER.12H 2 TAB PO BID EXPECTORANT (Reported) Levofloxacin (Levaquin) 500 MG TABLET 750 MG PO DAILY Pneumonia Levothyroxine Sodium 100 MCG TABLET 1 TAB PO DAILY AC THYROID (Reported) Losartan Potassium 50 MG TABLET 1 TAB PO DAILY HEART (Reported) Metoprolol Tartrate 25 MG TABLET 25 MG PO BID Atrial fibrilation Montelukast Sodium 10 MG TABLET 1 TAB PO DAILY COPD (Reported) Niacin (Niaspan) 500 MG TAB.ER.24H 1 TAB PO DAILY VITAMIN (Reported) Nitroglycerin (Nitro-Dur) 0.6 MG/HOUR PATCH.TD24 1 PATCH TOP DAILY HEART ( Reported) Nitroglycerin (Nitrostat) 0.4 MG TAB.SUBL 1 TAB SL AD PRN CHEST PAIN ( Reported) 1st sign of attack; may repeat every 5 minutes until relief; if pain persists after 3 tablets in 15 minutes, prompt medical att [place]-3 Fatty Acids/Fish Oil (Fish Oil 1,200 MG Softgel) 360 MG-1,200 MG CAPSULE.DR 1 CAP PO DAILY SUPPLEMENT (Reported) Omeprazole 40 MG CAPSULE.DR 1 CAP PO DAILY GI (Reported) Polyethylene Glycol 3350 (Miralax) 17 GRAM/DOSE POWDER 17 GM PO DAILY constipation mix with water, juice, soda, coffee or tea Potassium Chloride (Klor-Con M20) 20 MEQ TAB.ER.PRT 1 TAB PO DAILY VITAMIN ( Reported) Pravastatin Sodium (Pravachol) 40 MG TABLET 1 TAB PO QPM CHOLESTEROL ( Reported) Prednisone 10 MG TABLET 1 TAB PO DAILY COPD Roflumilast (Daliresp) 500 MCG TABLET 1 TAB PO DAILY COPD (Reported) . Sertraline HCl (Zoloft) 100 MG TABLET 2 TAB PO DAILY DEPRESSION (Reported) Tiotropium [place] (Spiriva) 18 MCG CAP.W.DEV 1 CAP INH DAILY copd Reason to Stop at ADM:[facility] NEBS ORDERS Vitamin E (Dl,Tocopheryl Acet) (Vitamin E) 400 UNIT CAPSULE 1 TAB PO DAILY SUPPLEMENT (Reported) Review of Systems Review of Systems: A review of systems is unremarkable. 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 diverticulosis Hepatic: NONE Renal: NONE Musculoskeletal: fibromyalgia, osteoarthritis, spinal stenosis Psychiatric: anxiety, depression, PTSD Endocrine: hypothyroidism Blood Disorders: anemia (iron deficiency) Cancer(s): SKIN 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 Home Who Do You Live With? child Services at Home: Home Health Aide, Nursing, Oxygen Primary Language: Persian Smoking Status: Former Smoker ETOH Use: denies use Illicit Drug Use: denies illicit drug use Functional Ability ADLs Independent: dressing, eating, toileting, bathing. Ambulation: independent IADLs Independent: shopping, housework, finances, food prep, telephone, transportation , medication admin. Exam & Diagnostic Data Vital Signs and I&O Vital Signs Date Time Temp Pulse Resp B/P B/P Pulse O2 O2 Flow FiO2 Mean Ox Delivery Rate 11/29 1630 98.2 80 20 107/61 11/29 1617 96 Nasal 2.0L Cannula 11/29 1404 98.2 80 20 107/61 96 Nasal 2.0L Cannula 11/29 0831 98.0 84 20 114/68 11/29 0831 98.0 84 20 114/68 11/29 0800 Nasal 2.0L Cannula 11/29 0742 97 Nasal 2.0L Cannula 11/29 0649 98.0 84 20 114/68 97 Nasal 2.0L Cannula 11/28 2224 98.0 77 24 118/65 97 Nasal 2.0L Cannula 11/28 2209 77 118/65 Intake & Output 11/29 1600 11/29 0811/29 0000 11/28 1600 11/28 0811/28 0000 Intake Total 800 250 250 800 260 750 Output Total 300 400 600 Balance 500 250 250 400 -340 750 Intake, IV 10 10 60 50 Intake, Oral 800 240 240 800 200 700 Output, Urine 300 400 600 Patient 112 lb Weight Physical Exam: General: WD/WN female in NAD; alert and oriented x 3 HEENT: NC/AT, PERRL, EOMI Neck: no JVD, no carotid bruit Heart: RRR w/o murmur Lungs: decreased air movement Abdomen: soft, NT, +ve bowel sounds Extremities: no edema Assessment/Plan Assessment/Plan * Cynthia is slowly improving but continues to have a congested cough with shortness of breath related to a bronchitic exacerbation of COPD. She does have some chest soreness but no evidence of myocardial ischemia or decompensated CHF. The patient has a regular 100% paced rhythm following her AV node ablation with PPM placement but remains in atrial fibrillation. She does not need chronic anticoagulation due to placement of a Watchman device. Continue aspirin. Continue digoxin for RV dysfunction. Consult Acknowledgment - Thank you for your consult request.
[2017-11-29 23:00] VITALS: BP 128/56
[2017-11-30 06:48] VITALS: BP 135/69
[2017-11-30 09:03] VITALS: BP 128/64
--- NOTE | 2017-11-30 10:48 | PN- Housestaff ---
[place] ETIEN[place] 11/30/17 1028: Subjective Follow-up For: PNA COPD exacerbation Subjective: Patient seen and examined. Sitting up in bed. Complains of generalized body aches, shortness of breath and continued pinkish sputum production, says it feels like she has the flu. Not ready to be discharged yet. O2 requirement however remains at her baseline of 2L. Review of Systems Constitutional: Reports: malaise. Objective Last 24 Hrs of Vital Signs/I&O Vital Signs Date Time Temp Pulse Resp B/P B/P Pulse O2 O2 Flow FiO2 Mean Ox Delivery Rate 11/30 0903 70 128/64 11/30 0903 70 128/64 11/30 0811 97 Nasal 2.0L Cannula 11/30 0800 Nasal 2.0L Cannula 11/30 0648 98.2 84 20 135/69 98 Nasal 2.0L Cannula 11/30 0115 97 Nasal 2.0L Cannula 11/30 0000 Nasal 2.0L Cannula 11/29 2300 99.3 84 20 128/56 96 Nasal 2.0L Cannula 11/29 2124 84 128/56 11/29 1630 98.2 80 20 107/61 11/29 1617 96 Nasal 2.0L Cannula 11/29 1404 98.2 80 20 107/61 96 Nasal 2.0L Cannula Intake & Output 11/30 1600 11/30 0800 11/30 0000 Intake Total 100 100 Output Total Balance 100 100 Intake, Oral 100 100 Physical Exam General Appearance: Alert, Oriented X3, Cooperative, Mild Distress Skin: No Significant Lesion HEENT: PERRLA, EOMI, Mucous Membr. moist/pink Cardiovascular: Regular Rate, Normal S1, Normal S2 Lungs: PROLONGED EXPIRATORY WHEEZING, DECREASED AIR ENtRY BILATERALLY Abdomen: Normal Bowel Sounds, Soft, No Tenderness Extremities: No Edema, Normal Pulses Current Medications: Current Medications Sig/Lana Start time Last Medication Dose Route Stop Time Status Admin Albuterol Sulfate 3 ML EVERY 4 HRS/AWAKE 11/28 0800 AC 11/30 INH 0813 Alprazolam 0.5 MG Q12P PRN 11/27 1745 AC 11/30 PO 12/04 1744 0901 Aspirin Buffered 81 MG 2200 11/28 2200 AC 11/29 PO 2120 Budesonide/ 2 PUF BID 11/28 1000 AC 11/30 Formoterol Fumarate INH 09 Bupropion HCl 100 MG QAM 11/28 1000 AC 11/30 PO 0903 Calcium/Vitamin D 500 MG DAILY 11/28 1000 AC 11/30 PO 0903 Dicyclomine HCl 10 MG TID 11/27 2200 AC 11/30 PO 0903 Digoxin 0.125 MG 1700 11/28 1700 AC 11/29 PO 1630 Docusate Sodium 200 MG QPM 11/27 2200 AC 11/29 PO 2119 Ezetimibe 10 MG QPM 11/27 2200 AC 11/29 PO 2120 Ferrous Sulfate 325 MG DAILY 11/28 1000 AC 11/30 PO 0901 Furosemide 40 MG 0730,1630 11/28 0730 AC 11/30 PO 0633 Guaifenesin 10 ML .[facility] 11/29 2106 DC PO 11/30 2107 Guaifenesin 10 ML BID 11/28 2200 AC 11/30 PO 0903 Guaifenesin 600 MG BID 11/28 2200 AC 11/30 PO 0903 Levofloxacin 750 MG DAILY 11/27 1830 AC 11/30 PO 0901 Levothyroxine Sodium 0.1 MG DAILY AC 11/28 0700 AC 11/30 PO 0542 Losartan Potassium 50 MG DAILY 11/28 1000 AC 11/30 PO 0903 Magnesium Oxide 400 MG DAILY 11/28 1136 AC 11/30 PO 0903 Melatonin 5 MG AT BEDTIME 11/28 2200 AC 11/29 PO 211 Metoprolol Tartrate 25 MG BID 11/27 2200 AC 11/30 PO 0903 Montelukast Sodium 10 MG AT BEDTIME 11/28 2200 AC 11/29 PO 2120 Nicotinic Acid 500 MG WITH MEALS 11/28 0800 AC 11/30 PO 0903 Nitroglycerin 0.4 MG DAILY 11/28 1000 AC 11/30 TOP 0904 Nitroglycerin 0.4 MG SEE ADMIN CRITERIA.. 11/27 1800 AC SL Omeprazole 40 MG DAILY AC 11/28 0700 AC 11/30 PO 0633 Oxycodone/ 1 TAB Q6P PRN 11/28 0845 AC 11/30 Acetaminophen PO 0633 Polyethylene Glycol 17 GM DAILY 11/28 1000 AC 11/30 PO 0859 Potassium Chloride 20 MEQ DAILY 11/28 1000 AC 11/30 PO 0901 Pravastatin Sodium 40 MG 1700 11/28 1700 AC 11/29 PO 1630 Roflumilast 500 MCG DAILY 11/28 1000 AC 11/30 PO 0901 Sertraline HCl 200 MG DAILY 11/28 1000 AC 11/30 PO 0903 Tiotropium [place] 1 PUF DAILY 11/28 1000 AC 11/30 INH 0904 Vitamin E 400 IU DAILY 11/28 1000 AC 11/30 PO 0903 Lines/Diet/Fluids Lines: peripheral lines Assessment/Plan Assessment: 1. Pneumonia most likely Community Acquired 2. COPD on 2L of O2 at baseline 3. Electrolyte Abnormalities -hyponatremia/hypokalemia/hypomagnesemia -resolved. 4. History of A.fib s/p pacemaker and watchman device Plan: * Continue supplemental oxygen to maintain target sats >92%. She is currently on 2L which is her baseline. * Sputum culture form 11/27 only shows yeast after 2 days * Continue PO Levofloxacin 750mg daily-Day #4. Her white count has slightly trended downyesterday, no labs ordered today. * Check CBC in AM * TRC/nebs as needed. * Urinary strep pneumo and legionalla - negative.; flu negative * Continue all home meds for chronic medical conditions. Losartan, Dignoxin, Metoprolol, Lasix, Prednisone, Levothyroxine, Roflumilast, Aspirin. * Diet: Regular * DVT Prophylaxis: ALPS. She has developed hematoma in the past on AC. Will avoid heparin/enoxaparin * Code: Full Code Problem List: 1. Bacterial pneumonia Pain Ratin Pain Location: n/a Pain Goal: Remain pain free Pain Plan: n/a Tomorrow's Labs & Rationales: cbc Jovita Stephens 11/30/17 1319: Attending MD Review Statement Attending Statement Attending MD Statement: examined this patient, discuss w/resident/PA/FRONT OFFICE SECRETARY, agreed w/resident/PA/FRONT OFFICE SECRETARY, discussed with family, reviewed EMR data (avail), discussed with nursing, discussed with case mgmt, reviewed images, amended to note Attending Assessment/Plan: Patient with overall improvement. Patient is on 2l oxygen at home baseline and desaturates on exertion. Patient is on PO abx for possible gram negative pneumonia. Patient can resume steroids Prednisone 10 mg daily home dose. Patient is vitally stable for discharge. Patient advised to follow up with her PCP and Pulmonary at discharge. Patient also requesting pain meds which needs to be followed up with Pain management she sees as outpatient. She appears to be medically stbale for discharge.
== END 2017-11-30 17:12 | disposition home health service (06) | DRG 194 ==
LOC: DELPENDDIS → ERH 12:58 → 2NA 15:51 → ERHI 15:51 → ENRESERV 16:16 → EDTRNSPT 17:55 → ENTRNSPT 17:55 → EDTRNSPTSTS 18:02 → EDTRNSPT 18:02 → 2NA 18:13 → CMPTRNSPT 18:23 → 2NA 19:22 → ENPENDDIS 11-29 10:49 → DELTRNSPT 11-30 16:48 → ENTRNSPT 11-30 16:49 → EDTRNSPTSTS 11-30 16:58 → 2NA 11-30 17:12 → CMPTRNSPT 11-30 17:13
PROVIDERS: Internal Medicine; Physician Assistant Medical; Student in an Organized Health Care Education/Training Program
DX: J18.9 Pneumonia, unspecified organism (principal); I50.32 Chronic diastolic (congestive) heart failure; I11.0 Hypertensive heart disease with heart failure; I48.2 Chronic atrial fibrillation; E83.42 Hypomagnesemia; E87.1 Hypo-osmolality and hyponatremia; D50.9 Iron deficiency anemia, unspecified; F17.200 Nicotine dependence, unspecified, uncomplicated; J44.1 Chronic obstructive pulmonary disease with (acute) exacerbation; E87.6 Hypokalemia; Z95.0 Presence of cardiac pacemaker; E78.5 Hyperlipidemia, unspecified; Z79.82 Long term (current) use of aspirin; I25.10 Atherosclerotic heart disease of native coronary artery without angina pectoris; I25.2 Old myocardial infarction; K21.9 Gastro-esophageal reflux disease without esophagitis; K58.9 Irritable bowel syndrome, unspecified; K57.90 Diverticulosis of intestine, part unspecified, without perforation or abscess without bleeding; F32.9 Major depressive disorder, single episode, unspecified; F41.9 Anxiety disorder, unspecified; F43.10 Post-traumatic stress disorder, unspecified; E03.9 Hypothyroidism, unspecified; Z85.828 Personal history of other malignant neoplasm of skin; Z82.49 Family history of ischemic heart disease and other diseases of the circulatory system; Z88.8 Allergy status to other drugs, medicaments and biological substances
CPT/HCPCS: 2NAP; 36592; 71045; 73562-LT; 73562-RT; 82436; 87040; 87070; 87071; 87449; 87450; 87804; 87804-59; 93005; 93010; 96365; 96375; J0456; J0696; J0713; J2930; J3490; J7060; J7512

== ENCOUNTER 2018-02-17 09:48 | Inpatient (IN) | payer OTHER, MEDICARE ==
[~2018-02-17] VITALS: Ht 157.5 cm; Wt 55.5 kg
[~2018-02-17 09:48] MED LIST changes: +ACETAMINOPHEN-1 EAC2 PO; +ASPIRIN EC81 M1 PO; +CALCIUM + D3 E1 EACH PO; +EPZICOM TABLET1 EACH PO; +KLOR-CON M2020 ME1 PO; +OMEGA 3-6-9 11200 MG PO
--- NOTE | 2018-02-17 10:23 | ED DYSPNEA/ASTHMA COMPLAINT ---
History of Present Illness General Chief Complaint: General Adult Stated Complaint: RUSSO,CHILLS,MUSCLE PAIN, LOW O2 Source: patient, old records Exam Limitations: no limitations Vital Signs & Intake/Output Vital Signs & Intake/Output Vital Signs Date Time Temp Pulse Resp B/P B/P Pulse O2 O2 Flow FiO2 Mean Ox Delivery Rate 02/17 1534 96 Nasal 2.0L Cannula 02/17 1529 98.4 84 20 143/71 97 Nasal 1.0L Cannula 02/17 1332 99.1 71 20 113/58 95 Nasal 2.0L Cannula 02/17 1137 96 Nasal 2.0L Cannula 02/17 1056 98.9 88 22 141/65 94 Nasal 3.0L Cannula 02/17 1039 95 Nasal 2.0L Cannula 02/17 0952 99.6 90 18 149/67 92 Nasal 2.0L Cannula Allergies Coded Allergies: menotropins (HIVES FROM PERGONAL 11/15/15) apixaban (HEMATOMA TO HIP 02/02/17) Reconcile Medications Acetaminophen With Codeine (Acetaminophen-Cod #4 Tablet) 300 MG-60 MG TABLET 1 TAB PO TID PRN PAIN (Reported) Albuterol Sulfate 2.5 MG/3 ML (0.083 %) VIAL.NEB 1 Vial INH/DANIKA PRN RESPIRATORY (Reported) Alprazolam 0.5 MG TABLET 1 TAB PO BIDP PRN ANXIETY (Reported) Amlodipine (Norvasc) 2.5 MG TABLET 1 TAB PO DAILY BP (Reported) Aspirin (Ecotrin*) 81 MG TABLET.DR 1 TAB PO DAILY HEART HEALTH (Reported) Calcium Carb & Citrate/Vit D3 (Calcium + D3 ER Tablet) 600 MG CALCIUM-500 UNIT TABLET.ER 1 TAB PO DAILY VIT (Reported) Dicyclomine HCl 10 MG CAPSULE 1 CAP PO TID ABD SPASM (Reported) Docusate Sodium (Colace) 100 MG CAPSULE 2 CAP PO QPM CONSTIPATION (Reported) Ezetimibe (Zetia) 10 MG TABLET 1 TAB PO QPM CHOLESTEROL (Reported) Ferrous Sulfate 325 MG (65 MG IRON) TABLET 1 TAB PO TID SUPPLEMENT (Reported) Fish Oil/Borage/Flax/Om3,6,9#1 ([place] 3-6-9 1,200 MG Softgel) 1,200 MG CAPSULE 1 CAP PO DAILY VITAMIN (Reported) Fluticasone/Salmeterol (Advair 250-50 Diskus) 250 MCG-50 MCG/DOSE BLST.W.DEV 1 PUF INH BID BREATHING PROBLEMS (Reported) Furosemide 40 MG TABLET 1 TAB PO BID DIURETIC (Reported) Guaifenesin (Mucinex) 600 MG TAB.ER.12H 2 TAB PO BID EXPECTORANT (Reported) Levofloxacin (Levaquin) 500 MG TABLET 750 MG PO DAILY Pneumonia Levothyroxine Sodium 100 MCG TABLET 1 TAB PO DAILY AC THYROID (Reported) Losartan (Cozaar) 100 MG TABLET 1 TAB PO DAILY BP (Reported) Losartan Potassium 50 MG TABLET 1 TAB PO DAILY HEART (Reported) Metoprolol Tartrate 25 MG TABLET 25 MG PO BID Atrial fibrilation Montelukast Sodium 10 MG TABLET 1 TAB PO DAILY COPD (Reported) Niacin (Niaspan) 500 MG TAB.ER.24H 1 TAB PO DAILY VITAMIN (Reported) Nitroglycerin (Nitrostat) 0.4 MG TAB.SUBL 1 TAB SL AD PRN CHEST PAIN ( Reported) 1st sign of attack; may repeat every 5 minutes until relief; if pain persists after 3 tablets in 15 minutes, prompt medical att Nitroglycerin (Nitro-Dur) 0.6 MG/HOUR PATCH.TD24 1 PATCH TOP DAILY HEART ( Reported) [place]-3 Fatty Acids/Fish Oil (Fish Oil 1,200 MG Softgel) 360 MG-1,200 MG CAPSULE.DR 1 CAP PO DAILY SUPPLEMENT (Reported) Omeprazole 40 MG CAPSULE.DR 1 CAP PO DAILY GI (Reported) Polyethylene Glycol 3350 (Miralax) 17 GRAM/DOSE POWDER 17 GM PO DAILY constipation mix with water, juice, soda, coffee or tea Potassium Chloride (Klor-Con M20) 20 MEQ TAB.ER.PRT 1 TAB PO DAILY VITAMIN ( Reported) Pravastatin Sodium (Pravachol) 40 MG TABLET 1 TAB PO QPM CHOLESTEROL ( Reported) Prednisone 10 MG TABLET 1 TAB PO DAILY COPD Roflumilast (Daliresp) 500 MCG TABLET 1 TAB PO DAILY COPD (Reported) . Sertraline HCl (Zoloft) 100 MG TABLET 2 TAB PO DAILY DEPRESSION (Reported) Tiotropium [place] (Spiriva) 18 MCG CAP.W.DEV 1 CAP INH DAILY copd Reason to Stop at ADM:TRC NEBS ORDERS Vitamin E (Dl,Tocopheryl Acet) (Vitamin E) 400 UNIT CAPSULE 1 TAB PO DAILY SUPPLEMENT (Reported) Triage Note: 68 Y/O FEMALE C/O NOT FEELING WELL SINCE LAST PM. STATES SHE CHECKS HER 02 AT HOME AND NOTICED READINGS IN 40'S, 60'S, 70'S ALL NIGHT. PT WEARS 2L OXYGEN AT BASELINE, SAT 92% IN TRIAGE. C/O GENERAL BODY ACHES, COUGH WITH YELLOW PHLEGM AND HEADACHE. REPORTS DECREASED APPETITE/PO INTAKE. Triage Nurses Notes Reviewed? yes Onset: Abrupt Duration: day(s): (1), constant Timing: recent history Severity: moderate Prior Episodes/Possible Cause: occasional episodes Associated Symptoms: DENIES HPI: 68-year-old female PMH of A.fib s/p pacemaker and watchman device, not on any AC , COPD on 2L of O2, CHF, HTN, HLD, GERD, depression, IBS, OA, Anemia, hypothyroidism presents to ER for evaluation complaining of generalized body aches, congestion sore throat headache nonproductive cough since last night. No sick contacts no recent travel no leg swelling chest pain abdominal pain vomiting diarrhea she is not taken anything for her symptoms. She states that she was checking her pulse ox with her monitor was reading in the 60s or 70s. She states that her fingers were cold, and she thinks that the batteries were going in the machine. After taking a shower she checked it again it was normal she has not had to increase her oxygen at home. She is on prednisone. (Joselo Ramos) Past History Travel History Traveled to [place] past 21 day No Medical History Any Pertinent Medical History? 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/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: miscarriage, HPV (PER PT) Other Medical Hx: discoid lupus eczema History of MRSA: No History of VRE: No History of CDIFF: No Influenza Vaccine: 06/23/17 Tetanus Vaccine: 02/07/16 Surgical History Surgical History: appendectomy, hernia repair-hiatal tonsillectomy Psychosocial History Who do you live with Patient/Self Services at Home Home Health Aide, Nursing, Oxygen What is your primary language Czech Tobacco Use: Quit >30 days ago Family History Family History, If Any: MOTHER FH: CAD (coronary artery disease) FH: COPD (chronic obstructive pulmonary disease) FH: heart disease FATHER Alzheimer's disease BROTHER FH: CAD (coronary artery disease) BROTHER FH: CAD (coronary artery disease) BROTHER FH: CAD (coronary artery disease) Hx Contributory? No (Joselo Ramos) Review of Systems Review of Systems Constitutional: Reports: see HPI. Comments Review of systems: See HPI, All other systems negative. Constitutional, no chills no fever, malaise HEENT: no sore throat congestion, no ear pain Cardiovascular: No chest pain , no palpitation Skin: no rashes, no change in skin Respiratory: No dyspnea cough no hemoptysis GI: No nausea no vomiting, no diarrhea, : No dysuria Muscle skeletal: No joint pain, no back pain, no neck pain, Neurologic: , no headache Heme/endocrine: No bruising (Joselo Ramos) Physical Exam Physical Exam General Appearance: well developed/nourished, alert, awake Respiratory: no respiratory distress Comments: Well-developed well-nourished person in no acute distress Head/Face: Atraumatic, no maxillary/frontal sinus tenderness, no facial swelling Eyes: PERRL, EOMI, no conjunctival injection Ear:External auditory canal and Tympanic membranes clear, no erythema, no FB. Nose: atraumatic.Normal inspection: No bleeding, no septal hematoma Throat: Moist mucous membranes.Pharynx normal. No pharyngeal erythema/exudate seen. No stridor/drooling or assymetry. No swelling or edema. Neck: Supple, no lymphadenopathy, FROM Back: Nontender, no CVA tenderness. Full range of motion Cardiovascular: Regular rate and rhythms no murmurs rubs Respiratory: Chest nontender.There were no bony deformities, no asymmetry. No respiratory distress. Patient speaking in full complete sentences. Breath sounds clear to auscultation bilaterally: NO W/R/R Abdomen: Soft, nontender nondistended, no appreciable organomegaly Extremity: No edema, full range of motion of extremities Neuro: Alert oriented x3, motor sensory normal, There were no obvious focal neurologic abnormalities. Skin: No appreciable rash on exposed skin, skin is warm and dry. Psych: Mood and affect is normal, memory and judgment is normal. Core Measures ACS in differential dx? No CVA/TIA Diagnosis No Sepsis Present: No Sepsis Focused Exam Completed? No (Tomas EVERETT,Joselo) Progress Differential Diagnosis: asthma, bronchitis, CHF, COPD, musculoskeletal pain, pulmonary embolism, pneumonia, VIRAL SYNDROME, DEHYDRATION Plan of Care: Orders Procedure Date/time Status CBC WITHOUT DIFFERENTIAL 02/18 0600 Active BASIC ELECTROLYTES PLUS BUN&CR 02/18 0600 Active Heart Healthy Diet 02/17 D Active Wound Care/Dressing 02/17 1631 Active Skin/Pressure Ulcer Assess (Sk 02/17 1629 Active STREP PNEUMO URINARY ANTIGEN 02/17 1501 Active LEGIONELLA URINARY ANTIGEN 02/17 1501 Active LOWER RESPIRATORY CULTURE 02/17 1501 Active Weight 02/17 1457 Complete Vital Signs 02/17 1457 Complete Teach/Educate 02/17 1457 Active Pain Treatment and Response 02/17 1457 Active Nutritional Intake, Monitor 02/17 1457 Active Isolation 02/17 1457 Active Intake & Output 02/17 1457 Complete Patient Care Conference 02/17 1457 Active Activity/Ambulation 02/17 1457 Active TRC EVALUATION (GEN) 02/17 1413 Active Pathway - chart 02/17 1413 Active House Staff 02/17 1413 Active SPECIMEN TO BE OBTAINED 02/17 1413 Active Code Status 02/17 1413 Active RAPID VIRAL INFLUENZA A 02/17 1317 Active Patient Data 02/17 1309 Active OXYGEN SETUP (GEN) 02/17 1308 Active Saline Lock 02/17 1308 Active Admit to inpatient 02/17 1308 Active Vital Signs 02/17 1308 Complete Activity/Ambulation 02/17 1308 Complete Code Status 02/17 1308 Complete BLOOD CULTURE 02/17 1243 Active EKG 02/17 1243 Active Intake & Output 02/17 1035 Active TROPONIN LEVEL 02/17 1031 Complete COMPREHENSIVE METABOLIC PANEL 02/17 1031 Complete CBC WITHOUT DIFFERENTIAL 02/17 1031 Complete Weight 02/17 UNK Active VTE Mechanical Prophylaxis 02/17 UNK Active Vital Signs 02/17 UNK Active Intake & Output 02/17 UNK Complete Current Medications Sig/Lana Start time Last Medication Dose Stop Time Status Admin Amlodipine Besylate 2.5 MG DAILY 02/18 0900 AC (Norvasc) Aspirin Buffered 81 MG DAILY 02/18 09 AC (Ecotrin) Ceftriaxone Sodium 1,000 MG DAILY 02/18 900 CAN (Rocephin) Enoxaparin Sodium 40 MG DAILY 02/18 900 CAN (Lovenox) Losartan Potassium 100 MG DAILY 02/18 900 AC (Cozaar) Polyethylene Glycol 17 GM DAILY 02/18 900 AC (Miralax) Potassium Chloride 20 MEQ DAILY 02/18 900 AC (K-Dur) Prednisone 10 MG DAILY 02/18 900 AC Roflumilast 500 MCG DAILY 02/18 900 CAN (DALIRESP) Sertraline HCl 200 MG DAILY 02/18 900 AC (Zoloft) Levothyroxine Sodium 0.1 MG DAILY AC 02/18 07 AC (Synthroid) Heparin Sodium 5,000 UNIT Q8 02/17 2200 AC (Porcine) Dicyclomine HCl 10 MG TID 02/17 2100 AC (Bentyl) Docusate Sodium 200 MG QPM 02/17 2100 AC (Colace) Ezetimibe 10 MG QPM 02/17 2100 AC (Zetia) Furosemide 40 MG BID 02/17 2100 AC (Lasix) Metoprolol Tartrate 25 MG BID 02/17 2100 AC (Lopressor) Pravastatin Sodium 20 MG 1700 02/17 1700 AC (Pravachol) Levofloxacin 750 MG 1600 02/17 1600 AC (Levaquin 250MG) Acetaminophen/ 1 TAB Q6 PRN 02/17 1430 AC Codeine Phosphate (Tylenol #3) Albuterol Sulfate 3 ML DAILY PRN 02/17 1430 AC (Proventil) Alprazolam 0.5 MG BID PRN 02/17 1430 AC (Xanax) 02/24 1429 Nitroglycerin 0.6 MG DAILY PRN 02/17 1430 AC (Transderm Nitro 15MG (Nitro-Dur) 0.6MG/Hr) Nitroglycerin 0.4 MG EVERY 5 MIN PRN 02/17 1430 AC (Nitrostat) Roflumilast 500 MCG DAILY 02/17 1430 AC (DALIRESP) Omeprazole 40 MG DAILY AC 02/17 1417 AC (Prilosec) Budesonide/ 2 PUF BID 02/17 1416 AC Formoterol Fumarate (Symbicort) Guaifenesin 1,200 MG BID 02/17 1416 AC (Mucinex) Montelukast Sodium 10 MG DAILY 02/17 141 AC (Singulair) Tiotropium [place] 1 PUF DAILY 02/17 141 AC (Spiriva) Vitamin E 400 IU DAILY 02/18 1416 AC (Vitamin E) Laboratory Tests 02/17/18 1058: Anion Gap 12, Estimated GFR > 60, BUN/Creatinine Ratio 26.7 H, Glucose 106 H, Calcium 9.2, Total Bilirubin 0.6, AST 32, ALT 41, Alkaline Phosphatase 78, Troponin I 0.03, Total Protein 6.4, Albumin 3.8, Globulin 2.6, Albumin/Globulin Ratio 1.5, CBC w Diff MAN DIFF ORDERED, RBC 4.26, MCV 89.4, MCH 28.9, MCHC 32.3 L, RDW 15.7 H, MPV 6.8 L, Gran % 91.0 H, Lymphocytes % 3.2 L, Monocytes % 5.7, Eosinophils % 0.1, Basophils % 0, Absolute Granulocytes 24.1 H, Absolute Lymphocytes 0.8 L, Absolute Monocytes 1.5 H, Absolute Eosinophils 0, Absolute Basophils 0, Platelet Estimate ADEQUATE, Normocytic RBCs VERIFIED, Normochromic RBCs VERIFIED Microbiology 02/17 1501 URINE ROUT: Legionella Antigen - ORD 02/17 1501 URINE ROUT: Streptococcus pneumoniae Antigen (M - ORD 02/17 1501 LOWER RESP: Respiratory Culture - ORD 02/17 1501 LOWER RESP: Gram Stain - ORD 02/17 1337 BLOOD: Blood Culture - RECD 02/17 1317 NASOPHARYN: Influenza Virus A & B Rapid Smear - COLB 02/17 1243 BLOOD: Blood Culture - ORD Labs ordered old records reviewed patient nontoxic appearing no acute distress at this time. pt's White blood cell count is chronically elevated dating back through her spastic several visits the lowest her white blood cell count has been was 13,000 back in September Upon ambulation on her baseline 2 L patient's oxygen saturation dropped to 89% given elevated white blood cell count x-ray showing pneumonia discussed that I believe premature discharge would BE medically harmful need for admission which she is in agreement with, IV Rocephin and Zithromax Solu-Medrol ordered. case d/w dr epstein agrees with plan d/w dr bro will admit Diagnostic Imaging: Viewed by Me: Radiology Read. Discussed w/RAD: Radiology Read. Radiology Impression: PATIENT: STEPH LEOS PRESENT AGE: 68 PATIENT ACCOUNT NO: [id number] : 50 LOCATION: [facility] ORDERING PHYSICIAN: Joselo EVERETT SERVICE DATE: 02/17/18 EXAM TYPE: RAD - XRY- CHEST XRAY, TWO VIEWS EXAMINATION: XR CHEST CLINICAL INFORMATION: Cough COMPARISON: Previous chest x-ray November 2017 TECHNIQUE: 2 views of the chest were obtained. FINDINGS: The cardiac and mediastinal contours are stable. There is a left subclavian dual chamber pacemaker unchanged in position. There is a cardiac device that is unchanged. The lungs are well inflated. There is airspace disease seen in the right lower lobe suggestive of a small right lower lobe pneumonia. The left lung is clear. There is a small right pleural effusion. There are mild degenerative changes of the spine. IMPRESSION: Small right lower lobe pneumonia and right pleural effusion. DICTATED BY: Leann Deluna MD DATE/TIME DICTATED: 02/17/181135 METAL DIE FINISHER:PAPO DATE/TIME TRANSCRIBED:02/17/181135 CONFIDENTIAL, DO NOT COPY WITHOUT APPROPRIATE AUTHORIZATION. <Electronically signed in Other Vendor System> SIGNED BY: Leann Deluna MD 02/17/18 1143 Initial ED EKG: normal p-waves, normal QRS complex, normal sinus rhythm, pac Prior EKG: unchanged (Joselo Ramos) Departure Departure Time of Disposition: 1305 Disposition: STILL A PATIENT Condition: Stable Clinical Impression Primary Impression: Pneumonia Secondary Impressions: Hypoxia Referrals: Gerard Rodas MD (PCP/Family) Additional Instructions: Follow up with your pmd Departure Forms: Customer Survey General Discharge Information Admission Note Spoke With: Hero Bro MD Documentation of Exam: Documentation of any treatments & extenuating circumstances including Concerns Regarding Discharge (functional status, medication knowledge or non-compliance, living conditions, etc.) that warrant an admission rather than observation: IV antibiotics trend labs turn cultures pulmonology consult patient became hypoxic with ambulation on her baseline 2 L premature discharge would be medically harmful (Joselo Ramos) PA/AIRPORT SECURITY SCREENER Co-Sign Statement Statement: ED Attending supervision documentation- I saw and evaluated the patient. I have also reviewed all the pertinent lab results and diagnostic results. I agree with the findings and the plan of care as documented in the PA's/AIRPORT SECURITY SCREENER's documentation. Sob, hypoxic with pneumonia [] I have reviewed the ED Record and agree with the PA's/AIRPORT SECURITY SCREENER's documentation. [] Additions or exceptions (if any) to the PAs/AIRPORT SECURITY SCREENER's note and plan are summarized below: [] (Ken ETIENNE,Kris) Critical Care Note Critical Care Note Critical Care Time: non-applicable (Tomas EVERETT,Joselo)
[2018-02-17 11:21] LABS: ABSOLUTE BASOPHIL COUNT 0 /CUMM (0.0-0.2); ABSOLUTE EOSINOPHIL COUNT 0 /CUMM (0.0-0.7); ABSOLUTE GRANULOCYTE CT 24.1 /CUMM (1.4-6.5); ABSOLUTE LYMPH COUNT 0.8 /CUMM (1.2-3.4); ABSOLUTE MONOCYTE COUNT 1.5 /CUMM (0.10-0.60); BASOPHIL % 0 % (0.0-2.0); EOSINOPHIL % 0.1 % (0-5); HEMATOCRIT 38.1 % (37-47); MEAN CORPUSCULAR HGB 28.9 PG (27.0-31.0); MEAN CORPUSCULAR HGB CONC 32.3 G/DL (33.0-37.0); MEAN CORPUSCULAR VOLUME 89.4 FL (81.0-99.0); MEAN PLATELET VOLUME 6.8 FL (7.4-10.4); PLATELET COUNT 430 /CUMM (130-400); RBC DISTRIBUTION WIDTH 15.7 % (11.5-14.5); RED BLOOD CELL CT 4.26 /CUMM (4.20-5.40); WHITE BLOOD CELL COUNT 26.4 /CUMM (4.8-10.8)
--- NOTE | 2018-02-17 11:43 | RADIOLOGY REPORT ---
EXAMINATION: XR CHEST CLINICAL INFORMATION: Cough COMPARISON: Previous chest x-ray November 2017 TECHNIQUE: 2 views of the chest were obtained. FINDINGS: The cardiac and mediastinal contours are stable. There is a left subclavian dual chamber pacemaker unchanged in position. There is a cardiac device that is unchanged. The lungs are well inflated. There is airspace disease seen in the right lower lobe suggestive of a small right lower lobe pneumonia. The left lung is clear. There is a small right pleural effusion. There are mild degenerative changes of the spine. IMPRESSION: Small right lower lobe pneumonia and right pleural effusion.
[2018-02-17] MEDS ORDERED: NORVASC2.5 M1 PO (12:41)
[2018-02-17] MEDS ORDERED: COZAAR100 M1 PO (12:41)
--- NOTE | 2018-02-17 13:14 | History & Physical ---
Jeannine Whitfield 02/17/18 1313: General Information and HPI History of Present Illness: Ms Escobar is a 67 yo F with PMH of A.fib s/p pacemaker and watchman device, not on any AC, COPD on 2L of O2, CHF, HTN, HLD, GERD, depression, IBS, OA, Anemia, hypothyroidism with recent discharge from [place] 11/2017 for CAP who presents to the ED with chills, myalgias. Patient reports yesterday she felt more fatigued than usual and subsequently had myalgias and a persistent migraine for hours. She took 2 tablets of acetaminophen #3 which did not resolve her symptoms. She then had chills, she took her temperature this morning and recorded a temperature of 98.9 but states she normally runs low. Yesterday she required an extra nebulizing treatment. She usually uses her albuterol nebulizer once a day and budesonide once a day. She reports she did not require her rescue inhaler. She uses continuous oxygen and her usual O2 sat is 97-98% but this morning it was 92% on 2 L. For the past week her O2 sat has been less than 90%. She has a cough with yellowish/whitish sputum production that has worsened for the past few days. Her rail car loader is Dr. Whitney. She felt nauseated and lightheaded last night. She also noticed swelling in her fingers and a weight gain of 2-3 pounds. She was recently taken off of Zoloft and Wellbutrin and placed on Cymbalta. Her antihypertensives has also been increased by her scow captain Dr. Naranjo. In the ED her labs was significant for a white count of 26.4 and a low-grade fever, Tmax 99.6. She was given IV azithromycin, Ceftriaxone and methylprednisolone x 1 dose. She was recorded to have an O2 sat of 89% on 2 L oxygen Allergies/Medications Allergies: Coded Allergies: menotropins (HIVES FROM PERGONAL 11/15/15) apixaban (HEMATOMA TO HIP 02/02/17) Home Med list Acetaminophen With Codeine (Acetaminophen-Cod #4 Tablet) 300 MG-60 MG TABLET 1 TAB PO TID PRN PAIN (Reported) Albuterol Sulfate 2.5 MG/3 ML (0.083 %) VIAL.NEB 1 Vial INH/DANIKA PRN RESPIRATORY (Reported) Alprazolam 0.5 MG TABLET 1 TAB PO BIDP PRN ANXIETY (Reported) Amlodipine (Norvasc) 2.5 MG TABLET 1 TAB PO DAILY BP (Reported) Aspirin (Ecotrin*) 81 MG TABLET.DR 1 TAB PO DAILY HEART HEALTH (Reported) Calcium Carb & Citrate/Vit D3 (Calcium + D3 ER Tablet) 600 MG CALCIUM-500 UNIT TABLET.ER 1 TAB PO DAILY VIT (Reported) Dicyclomine HCl 10 MG CAPSULE 1 CAP PO TID ABD SPASM (Reported) Docusate Sodium (Colace) 100 MG CAPSULE 2 CAP PO QPM CONSTIPATION (Reported) Ezetimibe (Zetia) 10 MG TABLET 1 TAB PO QPM CHOLESTEROL (Reported) Ferrous Sulfate 325 MG (65 MG IRON) TABLET 1 TAB PO TID SUPPLEMENT (Reported) Fish Oil/Borage/Flax/Om3,6,9#1 ([place] 3-6-9 1,200 MG Softgel) 1,200 MG CAPSULE 1 CAP PO DAILY VITAMIN (Reported) Fluticasone/Salmeterol (Advair 250-50 Diskus) 250 MCG-50 MCG/DOSE BLST.W.DEV 1 PUF INH BID BREATHING PROBLEMS (Reported) Furosemide 40 MG TABLET 1 TAB PO BID DIURETIC (Reported) Guaifenesin (Mucinex) 600 MG TAB.ER.12H 2 TAB PO BID EXPECTORANT (Reported) Levofloxacin (Levaquin) 500 MG TABLET 750 MG PO DAILY Pneumonia Levothyroxine Sodium 100 MCG TABLET 1 TAB PO DAILY AC THYROID (Reported) Losartan (Cozaar) 100 MG TABLET 1 TAB PO DAILY BP (Reported) Losartan Potassium 50 MG TABLET 1 TAB PO DAILY HEART (Reported) Metoprolol Tartrate 25 MG TABLET 25 MG PO BID Atrial fibrilation Montelukast Sodium 10 MG TABLET 1 TAB PO DAILY COPD (Reported) Niacin (Niaspan) 500 MG TAB.ER.24H 1 TAB PO DAILY VITAMIN (Reported) Nitroglycerin (Nitrostat) 0.4 MG TAB.SUBL 1 TAB SL AD PRN CHEST PAIN ( Reported) 1st sign of attack; may repeat every 5 minutes until relief; if pain persists after 3 tablets in 15 minutes, prompt medical att Nitroglycerin (Nitro-Dur) 0.6 MG/HOUR PATCH.TD24 1 PATCH TOP DAILY HEART ( Reported) [place]-3 Fatty Acids/Fish Oil (Fish Oil 1,200 MG Softgel) 360 MG-1,200 MG CAPSULE.DR 1 CAP PO DAILY SUPPLEMENT (Reported) Omeprazole 40 MG CAPSULE.DR 1 CAP PO DAILY GI (Reported) Polyethylene Glycol 3350 (Miralax) 17 GRAM/DOSE POWDER 17 GM PO DAILY constipation mix with water, juice, soda, coffee or tea Potassium Chloride (Klor-Con M20) 20 MEQ TAB.ER.PRT 1 TAB PO DAILY VITAMIN ( Reported) Pravastatin Sodium (Pravachol) 40 MG TABLET 1 TAB PO QPM CHOLESTEROL ( Reported) Prednisone 10 MG TABLET 1 TAB PO DAILY COPD Roflumilast (Daliresp) 500 MCG TABLET 1 TAB PO DAILY COPD (Reported) . Sertraline HCl (Zoloft) 100 MG TABLET 2 TAB PO DAILY DEPRESSION (Reported) Tiotropium [place] (Spiriva) 18 MCG CAP.W.DEV 1 CAP INH DAILY copd Reason to Stop at ADM:C NEBS ORDERS Vitamin E (Dl,Tocopheryl Acet) (Vitamin E) 400 UNIT CAPSULE 1 TAB PO DAILY SUPPLEMENT (Reported) 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 diverticulosis Hepatic: NONE Renal: NONE Musculoskeletal: fibromyalgia, osteoarthritis, spinal stenosis Psychiatric: anxiety, depression, PTSD Endocrine: hypothyroidism Blood Disorders: anemia (iron deficiency) Cancer(s): 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/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: miscarriage, HPV (PER PT) Other Medical Hx: discoid lupus eczema History of MRSA: No History of VRE: No History of CDIFF: No Influenza Vaccine: 06/23/17 Tetanus Vaccine: 02/07/16 Surgical History Surgical History: appendectomy, hernia repair-hiatal tonsillectomy Past Family/Social History Family History Relations & Conditions if any MOTHER FH: CAD (coronary artery disease) FH: COPD (chronic obstructive pulmonary disease) FH: heart disease FATHER Alzheimer's disease BROTHER FH: CAD (coronary artery disease) BROTHER FH: CAD (coronary artery disease) BROTHER FH: CAD (coronary artery disease) Psychosocial History Who Do You Live With? child Services at Home: Home Health Aide, Nursing, Oxygen Primary Language: German Functional Ability ADLs Independent: dressing, eating, toileting, bathing. Ambulation: independent IADLs Independent: shopping, housework, finances, food prep, telephone, transportation , medication admin. Review of Systems Review of Systems Constitutional: Reports: see HPI. Exam & Diagnostic Data Last 24 Hrs of Vital Signs/I&O Vital Signs Date Time Temp Pulse Resp B/P B/P Pulse O2 O2 Flow FiO2 Mean Ox Delivery Rate 02/17 1137 96 Nasal 2.0L Cannula 02/17 1056 98.9 88 22 141/65 94 Nasal 3.0L Cannula 02/17 1039 95 Nasal 2.0L Cannula 02/17 0952 99.6 90 18 149/67 92 Nasal 2.0L Cannula Intake & Output 02/17 1600 02/17 0800 02/17 0000 Intake Total Output Total Balance Patient 115 lb Weight Weight Reported by Patient Measurement Method Physical Exam General Appearance Alert, Oriented X3, Cooperative, No Acute Distress Skin L subcutaneous PM HEENT Atraumatic, PERRLA, EOMI, Mucous Membr. moist/pink, Light thrush Cardiovascular Regular Rate, Normal S1, Normal S2, No Murmurs Lungs Clear to Auscultation, Normal Air Movement Abdomen Normal Bowel Sounds, Soft, No Tenderness Extremities No Edema Last 24 Hrs of Labs/Wan: Laboratory Tests 02/17/18 1058: Anion Gap 12, Estimated GFR > 60, BUN/Creatinine Ratio 26.7 H, Glucose 106 H, Calcium 9.2, Total Bilirubin 0.6, AST 32, ALT 41, Alkaline Phosphatase 78, Troponin I 0.03, Total Protein 6.4, Albumin 3.8, Globulin 2.6, Albumin/Globulin Ratio 1.5, CBC w Diff MAN DIFF ORDERED, RBC 4.26, MCV 89.4, MCH 28.9, MCHC 32.3 L, RDW 15.7 H, MPV 6.8 L, Gran % 91.0 H, Lymphocytes % 3.2 L, Monocytes % 5.7, Eosinophils % 0.1, Basophils % 0, Absolute Granulocytes 24.1 H, Absolute Lymphocytes 0.8 L, Absolute Monocytes 1.5 H, Absolute Eosinophils 0, Absolute Basophils 0, Platelet Estimate ADEQUATE, Normocytic RBCs VERIFIED, Normochromic RBCs VERIFIED Microbiology 02/17 1317 NASOPHARYN: Influenza Virus A & B Rapid Smear - ORD 02/17 1243 BLOOD: Blood Culture - ORD 02/17 1243 BLOOD: Blood Culture - ORD Diagnostic Data CXR Results FINDINGS: The cardiac and mediastinal contours are stable. There is a left subclavian dual chamber pacemaker unchanged in position. There is a cardiac device that is unchanged. The lungs are well inflated. There is airspace disease seen in the right lower lobe suggestive of a small right lower lobe pneumonia. The left lung is clear. There is a small right pleural effusion. There are mild degenerative changes of the spine. IMPRESSION: Small right lower lobe pneumonia and right pleural effusion. Assessment/Plan Assessment: Ms Escobar is a 67 yo F with PMH of A.fib s/p pacemaker and watchman device, not on any AC, COPD on 2L of O2, CHF, HTN, HLD, GERD, depression, IBS, OA, Anemia, hypothyroidism with recent discharge from [place] 11/2017 for CAP who presents to the ED with chills, myalgias with low O2 sats Problem list: #COPD exacerbation #RLL PNA #Leukocytosis -may be secondary to chronic steroid use versus acute infection #Chronic hyponatremia Plan: Admit to general med for further evaluation and management TRC/nebs PRN Start levofloxacin 750 Blood cultures 2 Influenza swab Urine strep and legionella ag Monitor white count Continue home meds: Alprazolam, ASA, amlodipine, losartan, statin, Roflumilast, dicyclomine, furosemide, guaifenesin, sertraline, ezetimibe, Synthroid, metoprolol, montelukast Diet: Heart healthy DVT: Enoxaparin Code: FULL As Ranked By This Provider Problem List: 1. COPD exacerbation 2. Bacterial pneumonia Core Measures/Misc (06/09) Acute Coronary Syndrome ACS Diagnosis: No Congestive Heart Failure Congestive Heart Failure Diagnosis No Cerebrovascular Accident CVA/TIA Diagnosis: No VTE (View Protocol) VTE Risk Factors Age>40 No Mechanical VTE Prophylaxis d/t N/A MechProphylax Ordered No VTE Pharm Prophylaxis d/t NA PharmProphylax ordered Sepsis (View protocol) Sepsis Present: No If YES complete Sepsis Event Note If YES complete Sepsis Event Note Bunny Puente 02/17/18 1521: Core Measures/Misc (06/09) Sepsis (View protocol) If YES complete Sepsis Event Note If YES complete Sepsis Event Note Resident Review Statement Resident Statement: examined this patient, discussed with chemistry intern, agreed with chemistry intern, discussed with family, discussed with case mgmt, reviewed images, amended to note Other Findings: 68-year-old female extensive past medical history of severe COPD, chronic steroid dependence and on chronic home oxygen with 2 L, atrial fibrillation with a watchman procedure and GI bleed with chronic anemia, not on AC. She was here in November, where she was treated for acute hypoxemic respiratory failure 2/2 PNA. She returns today with complaints of cough with a yellowish sputum and O2 sats at home of 60s and 70s. Has a white count of 25,000 (chronically elevated, on steroids) and a chest x-ray that shows rt basilar opacity and effusion. Given that she is chronically colonized with Pseudomonas and her previous sputum cultures have grown Pseudomonas, we will cover her with antipseudomonal abx - Levofloxacin for a possible pseudomonal -gram-negative pneumonia. Continue Lasix, losartan and metoprolol. We will inform Dr. Whitney (her rail car loader) in am. Check rapid flu, urine Legionella antigen and strep pneumo antigen. DVT prophylaxis (GI bleed in 09/2017) - Bleeding risk score with IMPROVE risk model - 0.2% for major bleed and 0.9% for clinically significant bleed. Can safely use Pharm ppx with Heparin. Full code. Hero Esparza MD 02/17/18 1732: Core Measures/Misc (06/09) Sepsis (View protocol) If YES complete Sepsis Event Note If YES complete Sepsis Event Note Attending MD Review Statement Attending Statement Attending MD Statement: examined this patient, discuss w/resident/PA/PRESSER MACHINE, agreed w/resident/PA/PRESSER MACHINE, reviewed EMR data (avail) Attending Assessment/Plan: 68F PMH A.fib s/p pacemaker and watchman device, not on any AC, COPD on 2L of O2 , CHF, HTN, HLD, GERD, depression, IBS, OA, Anemia, hypothyroidism presenting with several days of subjective fever, productive cough with green sputum, worsening dyspnea. Found to have RLL infiltrate with small right pleural effusion on exam. Desaturated to 89% on 2L in ED, improved on 3L. Patient looks well and does not appear toxic. She has decreased breath sounds on the right. Hemodynamically stable, labs reviewed. 1. RLL pneumonia 2. Right parapneumonic effusion Plan - Admit to general medicine - Start Levaquin (has a history of Pseudomonal pneumonia and has been treated with Levaquin in the past) - Sputum culture - Pulmonary consult - Nebulizer treatments - Continue home medications - DVT PPx
[2018-02-17 15:29] VITALS: BP 143/71
--- NOTE | 2018-02-17 17:35 | Admission Certification ---
Admission Certification Certification Statement - As attending physician, I certify that at the time of - admission, based on clinical presentation, severity of - symptoms, need for further diagnostic testing and - therapeutic interventions, and risk of adverse outcomes - without in-hospital treatment, in my clinical assessment, - this patient requires an acute hospital stay for a minimum - of two nights or longer. I have also considered psychsocial - factors such as support system, advanced age, financial - issues, cognitive issues, and failed out-patient treatments, - past re-admission history, safety of patient, and lack of - compliance as applicable. Specific rationale supporting this admission is: Pneumonia with parapneumonic effusion
[2018-02-17 21:48] VITALS: BP 120/52
[2018-02-18 05:37] VITALS: BP 118/70
--- NOTE | 2018-02-18 07:44 | PN- Housestaff ---
Subjective Follow-up For: Acute bronchitis RLL PNA Leukocytosis -may be secondary to chronic steroid use versus acute infection Chronic hyponatremia Subjective: Patient reports a cough with yellowish sputum production. She reports SOB without CP, nausea or vomiting. Review of Systems Constitutional: Reports: see HPI. Objective Last 24 Hrs of Vital Signs/I&O Vital Signs Date Time Temp Pulse Resp B/P B/P Pulse O2 O2 Flow FiO2 Mean Ox Delivery Rate 02/18 1423 97.6 79 20 120/56 97 Nasal Cannula 02/18 0934 85 118/70 02/18 0933 85 118/70 02/18 0810 95 Nasal 2.0L Cannula 02/18 0800 97 Nasal 2.0L Cannula 02/18 0537 97.7 85 20 118/70 95 Nasal 2.0L Cannula 02/18 0000 Nasal 2.0L Cannula 02/17 2226 Nasal 2.0L Cannula 02/17 2155 89 120/50 02/17 2148 97.0 89 20 120/52 98 Nasal 2.0L Cannula 02/17 1600 Nasal 2.0L Cannula 02/17 1534 96 Nasal 2.0L Cannula 02/17 1529 98.4 84 20 143/71 97 Nasal 1.0L Cannula Intake & Output 02/18 1600 02/18 0800 02/18 0000 Intake Total 600 490 950 Output Total 1050 1100 800 Balance -450 -610 150 Intake, IV 0 10 Intake, Oral 600 480 950 Number 0 0 0 Bowel Movements Output, Urine 1050 1100 800 Patient 133 lb Weight Weight Bed scale Measurement Method Physical Exam General Appearance: Alert, Oriented X3, Cooperative, No Acute Distress Cardiovascular: Regular Rate, Normal S1, Normal S2, No Murmurs Lungs: BL wheezing Abdomen: Normal Bowel Sounds, Soft, No Tenderness Extremities: No Edema Current Medications: Current Medications Sig/Lana Start time Last Medication Dose Route Stop Time Status Admin Acetaminophen/ 1 TAB Q6 PRN 02/17 1430 DC Codeine Phosphate PO Albuterol Sulfate 3 ML EVERY 4 HRS/AWAKE 02/18 0800 AC 02/18 INH 1137 Albuterol Sulfate 3 ML DAILY PRN 02/17 1430 AC INH Alprazolam 0.5 MG BID PRN 02/17 1430 AC 02/18 PO 02/24 1429 0946 Amlodipine Besylate 2.5 MG DAILY 02/18 0900 AC 02/18 PO 0933 Aspirin Buffered 81 MG DAILY 02/18 0900 AC 02/18 PO 0934 Azithromycin 500 MG Q24H 02/18 0900 DC Sodium Chloride 250 ML IV Budesonide 0.5 MG BID 02/17 2100 AC 02/18 INH 0810 Budesonide/ 2 PUF BID 02/17 1416 AC 02/18 Formoterol Fumarate INH 0933 Ceftriaxone Sodium 1,000 MG DAILY 02/18 0900 CAN IV Dicyclomine HCl 10 MG TID 02/17 2100 AC 02/18 PO 1357 Docusate Sodium 200 MG QPM 02/17 2100 AC 02/17 PO 2155 Duloxetine HCl 30 MG DAILY 02/19 0900 AC PO Enoxaparin Sodium 40 MG DAILY 02/18 0900 CAN SC Ezetimibe 10 MG QPM 02/17 2100 AC 02/17 PO 2155 Ferrous Sulfate 325 MG TID 02/17 2100 AC 02/18 PO 1357 Furosemide 40 MG BID 02/17 2100 AC 02/18 PO 0934 Guaifenesin 1,200 MG BID 02/17 1416 AC 02/18 PO 0933 Heparin Sodium 5,000 UNIT Q8 02/17 2200 AC 02/18 (Porcine) SC 1401 Ketorolac 15 MG ONCE ONE 02/17 1800 DC 02/17 Tromethamine IV 02/17 1801 1815 Levofloxacin 750 MG 1600 02/17 1600 AC 02/17 PO 1647 Levothyroxine Sodium 0.1 MG DAILY AC 02/18 0700 AC 02/18 PO 0623 Loratadine 10 MG DAILY 02/18 0955 AC 02/18 PO 1205 Loratadine 10 MG ONCE ONE 02/17 2100 DC 02/17 PO 02/17 210 2247 Losartan Potassium 100 MG 02/18 2100 AC PO Losartan Potassium 50 MG DAILY 02/18 0900 DC PO Losartan Potassium 100 MG DAILY 02/18 0900 DC PO Melatonin 5 MG AT BEDTIME 02/18 2100 AC PO Methylprednisolone 40 MG Q8 02/18 1400 AC 02/18 IV 1357 Metoprolol Tartrate 25 MG BID 02/17 2100 AC 02/18 PO 0934 Montelukast Sodium 10 MG DAILY 02/17 1416 AC 02/18 PO 0933 Nitroglycerin 0.6 MG DAILY PRN 02/17 1430 AC TOP Nitroglycerin 0.4 MG EVERY 5 MIN PRN 02/17 1430 AC SL Nystatin 5 ML 4 TIMES/DAY 02/18 1000 AC 02/18 PO 1205 Omeprazole 40 MG DAILY AC 02/17 1417 AC 02/18 PO 0623 Oxycodone/ 1 TAB Q6P PRN 02/17 2100 AC 02/17 Acetaminophen PO 2155 Polyethylene Glycol 17 GM DAILY 02/18 0900 AC 02/18 PO 0933 Potassium Chloride 20 MEQ DAILY 02/18 0900 AC 02/18 PO 0934 Pravastatin Sodium 20 MG 1700 02/17 1700 AC 02/17 PO 1646 Prednisone 10 MG DAILY 02/18 0900 AC 02/18 PO 0933 Roflumilast 500 MCG DAILY 02/17 1430 AC 02/18 PO 0933 Sertraline HCl 200 MG DAILY 02/18 0900 DC PO Tiotropium Export 1 PUF DAILY 02/17 1416 AC 02/18 INH 0933 Vitamin E 400 IU DAILY 02/17 1416 AC 02/18 PO 0933 Last 24 Hrs of Lab/Wan Results Last 24 Hrs of Labs/Mics: Laboratory Tests 02/18/18 0714: Anion Gap 13, Estimated GFR > 60, BUN/Creatinine Ratio 30.0 H, CBC w Diff NO MAN DIFF REQ, RBC 3.98 L, MCV 90.2, MCH 29.6, MCHC 32.9 L, RDW 16.1 H, MPV 6.9 L, Gran % 93.3 H, Lymphocytes % 3.3 L, Monocytes % 3.4, Eosinophils % 0, Basophils % 0, Absolute Granulocytes 20.8 H, Absolute Lymphocytes 0.7 L, Absolute Monocytes 0.8 H, Absolute Eosinophils 0, Absolute Basophils 0 Microbiology 02/18 2048 LOWER RESP: Respiratory Culture - RES 02/18 2048 LOWER RESP: Gram Stain - RES 02/17 1839 URINE ROUT: Legionella Antigen - COMP 02/17 1839 URINE ROUT: Streptococcus pneumoniae Antigen (M - COMP 02/17 1640 NASOPHARYN: Influenza Virus A & B Rapid Smear - COMP Assessment/Plan Assessment: Ms Escobar is a 67 yo F with PMH of A.fib s/p pacemaker and watchman device, not on any AC, COPD on 2L of O2, CHF, HTN, HLD, GERD, depression, IBS, OA, Anemia, hypothyroidism with recent discharge from [place] 11/2017 for CAP who presents to the ED with chills, myalgias with low O2 sats Problem list: #Acute bronchitis #RLL PNA #Leukocytosis -may be secondary to chronic steroid use versus acute infection #Chronic hyponatremia Plan: Start IV Methyprednisolone q8 We will discontinue her home dose Prednisone 10 mg TRC/nebs PRN Continue levofloxacin 750 Await final blood cultures Influenza swab was negative Urine strep and legionella ag was negative We will continue to monitor white count Continue home meds: Alprazolam, ASA, amlodipine, losartan, statin, Roflumilast, dicyclomine, furosemide, guaifenesin, sertraline, ezetimibe, Synthroid, metoprolol, montelukast Pain: Percocet Diet: Heart healthy DVT: Enoxaparin Code: FULL Problem List: 1. Bacterial pneumonia Pain Ratin Pain Location: NA Pain Goal: Remain pain free Pain Plan: NA Tomorrow's Labs & Rationales: CBC
[2018-02-18 07:58] LABS: ABSOLUTE BASOPHIL COUNT 0 /CUMM (0.0-0.2); ABSOLUTE EOSINOPHIL COUNT 0 /CUMM (0.0-0.7); ABSOLUTE GRANULOCYTE CT 20.8 /CUMM (1.4-6.5); ABSOLUTE LYMPH COUNT 0.7 /CUMM (1.2-3.4); ABSOLUTE MONOCYTE COUNT 0.8 /CUMM (0.10-0.60); BASOPHIL % 0 % (0.0-2.0); EOSINOPHIL % 0 % (0-5); GRANULOCYTE % 93.3 % (42.2-75.2); HEMATOCRIT 35.9 % (37-47); MEAN CORPUSCULAR HGB 29.6 PG (27.0-31.0); MEAN CORPUSCULAR HGB CONC 32.9 G/DL (33.0-37.0); MEAN CORPUSCULAR VOLUME 90.2 FL (81.0-99.0); MEAN PLATELET VOLUME 6.9 FL (7.4-10.4); PLATELET COUNT 391 /CUMM (130-400); RBC DISTRIBUTION WIDTH 16.1 % (11.5-14.5); RED BLOOD CELL CT 3.98 /CUMM (4.20-5.40)
[2018-02-18 09:54] LABS: WHITE BLOOD CELL COUNT 22.3 /CUMM (4.8-10.8)
--- NOTE | 2018-02-18 12:05 | PN- Att Addend ---
Attending Addendum Attending Brief Note Patient seen and examined, overall feeling slightly better. Still producing degenerative sputum with a cough. Still having slight difficulty with breathing. Patient requiring 2 L of oxygen. Vital Signs Date Time Temp Pulse Resp B/P B/P Pulse O2 O2 Flow FiO2 Mean Ox Delivery Rate 02/18 0934 85 118/70 02/18 0933 85 118/70 02/18 0810 95 Nasal 2.0L Cannula 02/18 0800 97 Nasal 2.0L Cannula 02/18 0537 97.7 85 20 118/70 95 Nasal 2.0L Cannula 02/18 0000 Nasal 2.0L Cannula 02/17 2226 Nasal 2.0L Cannula 02/17 2155 89 120/50 02/17 2148 97.0 89 20 120/52 98 Nasal 2.0L Cannula 02/17 1600 Nasal 2.0L Cannula 02/17 1534 96 Nasal 2.0L Cannula 02/17 1529 98.4 84 20 143/71 97 Nasal 1.0L Cannula 02/17 1332 99.1 71 20 113/58 95 Nasal 2.0L Cannula on exam; aox3, nad. cv; s1, s2, rrr resp; + b/l junky bs with wheeze. abd; soft, nt, bs+ ext; no edema Laboratory Tests 02/18 0714 Chemistry Sodium (137 - 145 mmol/L) 138 Potassium (3.5 - 5.1 mmol/L) 4.4 Chloride (98 - 107 mmol/L) 96 L Carbon Dioxide (22 - 30 mmol/L) 28 Anion Gap (5 - 16) 13 BUN (7 - 17 mg/dL) 21 H Creatinine (0.5 - 1.0 mg/dL) 0.7 Estimated GFR (>60 ml/min) > 60 BUN/Creatinine Ratio (7 - 25 %) 30.0 H Hematology CBC w Diff NO MAN DIFF REQ WBC (4.8 - 10.8 /CUMM) 22.3 H RBC (4.20 - 5.40 /CUMM) 3.98 L Hgb (12.0 - 16.0 G/DL) 11.8 L Hct (37 - 47 %) 35.9 L MCV (81.0 - 99.0 FL) 90.2 MCH (27.0 - 31.0 PG) 29.6 MCHC (33.0 - 37.0 G/DL) 32.9 L RDW (11.5 - 14.5 %) 16.1 H Plt Count (130 - 400 /CUMM) 391 MPV (7.4 - 10.4 FL) 6.9 L Gran % (42.2 - 75.2 %) 93.3 H Lymphocytes % (20.5 - 51.1 %) 3.3 L Monocytes % (1.7 - 9.3 %) 3.4 Eosinophils % (0 - 5 %) 0 Basophils % (0.0 - 2.0 %) 0 Absolute Granulocytes (1.4 - 6.5 /CUMM) 20.8 H Absolute Lymphocytes (1.2 - 3.4 /CUMM) 0.7 L Absolute Monocytes (0.10 - 0.60 /CUMM) 0.8 H Absolute Eosinophils (0.0 - 0.7 /CUMM) 0 Absolute Basophils (0.0 - 0.2 /CUMM) 0 A/P; 68 y/o F with pmh sig for A.fib s/p pacemaker and watchman device, not on any AC, COPD on 2L of O2, CHF, HTN, HLD, GERD, depression, IBS, OA, Anemia, hypothyroidism with recent admission to with CAP, admitted this time with small rll pna as well acute copd exacerbation. Previously patient's sputum had grown Pseudomonas in the past. Patient currently getting Levaquin. Will adjust abx according to culture results. She will also require IV steroids. We'll start her on Saturday Medrol 40 mg IV every 8 hours. We'll continue TRC nebs. We will follow-up on the sputum culture. Continue all other current medications. Pain management is adequate with current regimen. DVT prophylaxis: Heparin subcutaneous.
[2018-02-18 14:23] VITALS: BP 120/56
[2018-02-18 21:32] VITALS: BP 140/56
[2018-02-19 07:01] VITALS: BP 126/62
--- NOTE | 2018-02-19 07:14 | PN- Housestaff ---
Jeannine Whitfield 02/19/18 0714: Subjective Follow-up For: Acute bronchitis COPD exacerbation RLL PNA Leukocytosis -may be secondary to chronic steroid use versus acute infection Chronic hyponatremia Subjective: Patient reports blood in sputum. She is concerned with lung cancer and would like to be evaluated for it. Review of Systems Constitutional: Reports: see HPI. Objective Last 24 Hrs of Vital Signs/I&O Vital Signs Date Time Temp Pulse Resp B/P B/P Pulse O2 O2 Flow FiO2 Mean Ox Delivery Rate 02/19 08 128/66 02/19 0811 128/66 02/19 0701 97.8 74 20 126/62 98 02/19 0000 94 Nasal 2.0L Cannula 02/18 2132 97.8 83 20 140/56 98 Nasal 2.0L Cannula 02/18 2027 140/56 02/18 2026 140/56 02/18 1615 98 Nasal 2.0L Cannula 02/18 1600 Nasal 2.0L Cannula 02/18 1423 97.6 79 20 120/56 97 Nasal Cannula 02/18 0934 85 118/70 02/18 0933 85 118/70 Intake & Output 02/19 1600 02/19 0800 02/19 0000 Intake Total 240 240 Output Total 700 Balance 240 -460 Intake, Oral 240 240 Output, Urine 700 Patient 128 lb Weight Physical Exam General Appearance: Alert, Oriented X3, Cooperative, No Acute Distress Cardiovascular: Regular Rate, Normal S1, Normal S2 Lungs: BL wheezing Abdomen: Normal Bowel Sounds, Soft, No Tenderness Current Medications: Current Medications Sig/Lana Start time Last Medication Dose Route Stop Time Status Admin Albuterol Sulfate 3 ML EVERY 4 HRS/AWAKE 02/18 08 AC 02/18 INH 2034 Albuterol Sulfate 3 ML DAILY PRN 02/17 1430 AC INH Alprazolam 0.5 MG BID PRN 02/17 1430 AC 02/18 PO 02/24 1429 2044 Amlodipine Besylate 2.5 MG DAILY 02/18 09 AC 02/19 PO 08 Aspirin Buffered 81 MG DAILY 02/18 09 AC 02/19 PO 08 Azithromycin 500 MG Q24H 02/18 09 DC Sodium Chloride 250 ML IV Budesonide 0.5 MG BID 02/17 2100 AC 02/18 INH 2034 Budesonide/ 2 PUF BID 02/17 1416 AC 02/18 Formoterol Fumarate INH 2024 Dicyclomine HCl 10 MG TID 02/17 2100 AC 02/19 PO 0813 Docusate Sodium 200 MG QPM 02/17 2100 AC 02/18 PO 2026 Duloxetine HCl 30 MG DAILY 02/19 0900 AC 02/19 PO 0811 Ezetimibe 10 MG QPM 02/17 2100 AC 02/18 PO 202 Ferrous Sulfate 325 MG TID 02/17 2100 AC 02/19 PO 0811 Furosemide 40 MG BID 02/17 2100 AC 02/19 PO 0811 Guaifenesin 1,200 MG BID 02/17 1416 AC 02/19 PO 0811 Heparin Sodium 5,000 UNIT Q8 02/17 2200 AC 02/18 (Porcine) SC 2024 Levofloxacin 750 MG 1600 02/17 1600 AC 02/18 PO 162 Levothyroxine Sodium 0.1 MG DAILY AC 02/18 0700 AC 02/19 PO 0556 Loratadine 10 MG DAILY 02/18 0955 AC 02/19 PO 0810 Losartan Potassium 100 MG 02/18 2100 AC 02/18 PO 2026 Losartan Potassium 100 MG DAILY 02/18 0900 DC PO Melatonin 5 MG AT BEDTIME 02/18 2100 AC 02/18 PO 2026 Methylprednisolone 40 MG Q8 02/18 1400 AC 02/19 IV 0558 Metoprolol Tartrate 25 MG BID 02/17 2100 AC 02/19 PO 0811 Montelukast Sodium 10 MG DAILY 02/17 1416 AC 02/19 PO 0811 Nitroglycerin 0.6 MG DAILY PRN 02/17 1430 AC TOP Nitroglycerin 0.4 MG EVERY 5 MIN PRN 02/17 1430 AC SL Nystatin 5 ML 4 TIMES/DAY 02/18 1000 AC 02/19 PO 0809 Omeprazole 40 MG DAILY AC 02/17 1417 AC 02/19 PO 0556 Oxycodone/ 1 TAB Q6P PRN 02/17 2100 AC 02/18 Acetaminophen PO 2222 Patient Medication 1 ED ONE ONE 02/18 1815 DC Teaching ED 02/18 181 Polyethylene Glycol 17 GM DAILY 02/18 0900 AC 02/19 PO 0809 Potassium Chloride 20 MEQ DAILY 02/18 0900 AC 02/19 PO 0811 Pravastatin Sodium 20 MG 1700 02/17 1700 AC 02/18 PO 1621 Prednisone 10 MG DAILY 02/18 0900 AC 02/19 PO 0811 Roflumilast 500 MCG DAILY 02/17 1430 AC 02/19 PO 0812 Sertraline HCl 200 MG DAILY 02/18 0900 DC PO Tiotropium [place] 1 PUF DAILY 02/17 1416 AC 02/19 INH 0812 Vitamin E 400 IU DAILY 02/17 1416 AC 02/19 PO 0811 Last 24 Hrs of Lab/Wan Results Last 24 Hrs of Labs/Mics: Laboratory Tests 02/19/18 0735: CBC w Diff Pending, WBC Pending, RBC Pending, Hgb Pending, Hct Pending, MCV Pending, MCH Pending, MCHC Pending, RDW Pending, Plt Count Pending, MPV Pending Assessment/Plan Assessment: Ms Escobar is a 67 yo F with PMH of A.fib s/p pacemaker and watchman device, not on any AC, COPD on 2L of O2, CHF, HTN, HLD, GERD, depression, IBS, OA, Anemia, hypothyroidism with recent discharge from [place] 11/2017 for CAP who presents to the ED with chills, myalgias with low O2 sats Problem list: #Acute bronchitis #RLL PNA #Leukocytosis -may be secondary to chronic steroid use versus acute infection #Chronic hyponatremia Plan: LRC showed many GPR and wbcs We will decrease IV Methyprednisolone to q12 TRC/nebs PRN Continue levofloxacin 750 Await final blood cultures Influenza swab was negative Urine strep and legionella ag was negative We will continue to monitor white count Continue home meds: Alprazolam, ASA, amlodipine, losartan, statin, Roflumilast, dicyclomine, furosemide, guaifenesin, sertraline, ezetimibe, Synthroid, metoprolol, montelukast Pain: Percocet Pulm consult Diet: Heart healthy DVT: Enoxaparin Code: FULL Problem List: 1. Bacterial pneumonia 2. COPD exacerbation Pain Ratin Pain Location: NA Pain Goal: Remain pain free Pain Plan: NA Tomorrow's Labs & Rationales: Kristy Upton MD 02/19/18 1129: Attending Review Statement Attending Statement Attending MD Statement: examined this patient, discuss w/resident/PA/BEE TENDER, agreed w/resident/PA/BEE TENDER, reviewed EMR data (avail), discussed with nursing, discussed with case mgmt, amended to note Attending Assessment/Plan: Patient seen and examined, not feeling any better today. Still having some difficulty breathing. She says that she's having difficulty bringing up sputum. Vital Signs Date Time Temp Pulse Resp B/P B/P Pulse O2 O2 Flow FiO2 Mean Ox Delivery Rate 02/19 0900 95 Nasal 2.0L Cannula 02/19 0811 128/66 02/19 0811 128/66 02/19 0800 Nasal 2.0L Cannula 02/19 0701 97.8 74 20 126/62 98 02/19 0000 94 Nasal 2.0L Cannula 02/18 2132 97.8 83 20 140/56 98 Nasal 2.0L Cannula 02/18 202 140/56 02/18 202 140/56 02/18 1615 98 Nasal 2.0L Cannula 02/18 1600 Nasal 2.0L Cannula 02/18 1423 97.6 79 20 120/56 97 Nasal Cannula on exam; aox3, nad. cv; s1, s2, rrr resp; + b/l junky bs with wheeze but slightly better than yesterday. abd; soft, nt, bs+ ext; no edema Laboratory Tests 02/19 07 Hematology CBC w Diff NO MAN DIFF REQ WBC (4.8 - 10.8 /CUMM) 20.6 H RBC (4.20 - 5.40 /CUMM) 4.27 Hgb (12.0 - 16.0 G/DL) 12.6 Hct (37 - 47 %) 38.7 MCV (81.0 - 99.0 FL) 90.8 MCH (27.0 - 31.0 PG) 29.5 MCHC (33.0 - 37.0 G/DL) 32.5 L RDW (11.5 - 14.5 %) 16.3 H Plt Count (130 - 400 /CUMM) 373 MPV (7.4 - 10.4 FL) 7.1 L Gran % (42.2 - 75.2 %) 90.3 H Lymphocytes % (20.5 - 51.1 %) 6.2 L Monocytes % (1.7 - 9.3 %) 3.4 Eosinophils % (0 - 5 %) 0.1 Basophils % (0.0 - 2.0 %) 0 Absolute Granulocytes (1.4 - 6.5 /CUMM) 18.6 H Absolute Lymphocytes (1.2 - 3.4 /CUMM) 1.3 Absolute Monocytes (0.10 - 0.60 /CUMM) 0.7 H Absolute Eosinophils (0.0 - 0.7 /CUMM) 0 Absolute Basophils (0.0 - 0.2 /CUMM) 0 A/P: 68 y/o F with pmh sig for A.fib s/p pacemaker and watchman device, not on any AC, COPD on 2L of O2, CHF, HTN, HLD, GERD, depression, IBS, OA, Anemia, hypothyroidism with recent admission to with CAP, admitted this time with small rll pna as well acute copd exacerbation. Leukocytosis improving. Sputum culture growing gram-negative rods. Patient does have a history of Pseudomonas growth in sputum culture in the past. As discussed with Dr. Whitney. Will continue Levaquin. Will do a 7-10 day course. Will decrease his volume and drug 2 every 12 today. Continue TRC nebs. Patient will receive Mucomyst nebulized through respiratory therapy. Patient was encouraged to ambulate. Continue the rest of the management. Patient on heparin subcutaneous for DVT prophylaxis.
[2018-02-19] MEDS ORDERED: NYSTATIN100000 UNI PO (07:22)
[2018-02-19] MEDS ORDERED: LORATADINE10 M1 PO (07:22)
--- NOTE | 2018-02-19 07:24 | Patient Discharge Instructions ---
Discharge Instructions General Discharge Information You were seen/treated for: ACUTE BRONCHITIS COMMUNITY ACQUIRED PNEUMONIA You had these procedures: NONE Special Instructions: COMPLETE YOUR PREDNISONE TAPER BEFORE RESUMING YOUR HOME DOSE FOLLOW UP WITH YOUR DIRECTOR OF GRADUATE ADMISSIONS-DR. CONKLIN WITHIN 1 WEEK OF DISCHARGE FOLLOW UP WITH YOUR PCP-DR. MARION WITHIN 1-2 WEEKS OF DISCHARGE Diet Continue normal diet: Yes Activity Full Activity/No Limits: Yes Acute Coronary Syndrome Inclusion Criteria At DC or during hospital stay patient has or had the following: ACS DIAGNOSIS No Discharge Core Measures Meds if any: Prescribed or Continued at Discharge Meds if any: NOT Prescribed or Continued at Discharge Congestive Heart Failure Inclusion Criteria At DC or during hospital stay patient has or had the following: CHF DIAGNOSIS No Discharge Core Measures Meds if any: Prescribed or Continued at Discharge Meds if any: NOT Prescribed or Continued at Discharge Cerebrovascular accident Inclusion Criteria At DC or during hospital stay patient has or had the following: CVA/TIA Diagnosis No Discharge Core Measures Meds if any: Prescribed or Continued at Discharge Meds if any: NOT Prescribed or Continued at Discharge Venous thromboembolism Inclusion Criteria VTE Diagnosis No VTE Type NONE VTE Confirmed by (Test) NONE Discharge Core Measures - Per Current guidelines, there needs to be overlap - treatment for the first 5 days of Warfarin therapy. - If discharged on Warfarin prior to 5 days of - overlap therapy, the patient will need to be - assessed for post discharge needs including - *Post discharge parental anticoagulation - *Warfarin and/or parental anticoagulation education - *Follow up date to check INR post discharge At least 5 days overlap therapy as Inpatient No Meds if any: Prescribed or Continued at Discharge Note: Overlap Therapy is Warfarin and Anticoagulant Meds if any: NOT Prescribed or Continued at Discharge
[2018-02-19] MEDS ORDERED: CYMBALTA30 M1 PO (07:26)
[2018-02-19] MEDS ORDERED: PREDNISONE10 M2 PO (07:29)
[2018-02-19] MEDS ORDERED: LEVAQUIN250 M1 PO (07:33)
[2018-02-19 08:19] LABS: ABSOLUTE BASOPHIL COUNT 0 /CUMM (0.0-0.2); ABSOLUTE EOSINOPHIL COUNT 0 /CUMM (0.0-0.7); ABSOLUTE GRANULOCYTE CT 18.6 /CUMM (1.4-6.5); ABSOLUTE LYMPH COUNT 1.3 /CUMM (1.2-3.4); ABSOLUTE MONOCYTE COUNT 0.7 /CUMM (0.10-0.60); BASOPHIL % 0 % (0.0-2.0); EOSINOPHIL % 0.1 % (0-5); HEMATOCRIT 38.7 % (37-47); MEAN CORPUSCULAR HGB 29.5 PG (27.0-31.0); MEAN CORPUSCULAR HGB CONC 32.5 G/DL (33.0-37.0); MEAN CORPUSCULAR VOLUME 90.8 FL (81.0-99.0); MEAN PLATELET VOLUME 7.1 FL (7.4-10.4); RBC DISTRIBUTION WIDTH 16.3 % (11.5-14.5); RED BLOOD CELL CT 4.27 /CUMM (4.20-5.40); WHITE BLOOD CELL COUNT 20.6 /CUMM (4.8-10.8)
--- NOTE | 2018-02-19 08:41 | Cons- Pulmonary ---
General Information and HPI Consulting Request Date of Consult: 02/19/18 Requested By: Dr. Vaca Reason for Consult: hemoptysis Source of Information: patient Exam Limitations: no limitations History of Present Illness: 68 year old woman. Consultation for hemoptysis. Hx of a.fib, PPM, watchman device, chronic anemia, severe COPD on oxygen, hx of pneumonia including pseudomonas. Admitted with acute exacerbation of COPD, RLL infiltrate, hemoptysis. She received Levaquin, solumedrol, trc/nebs. ROS -yellow/white sputum, dyspnea, cough, lightheadedness, no cp, no v/d/c, +nausea, no acosta, no sick contacts, no travel hx, afebrile wbc 22.3 from 26.4 CXR - small RLL infiltrate Allergies/Medications Allergies: Coded Allergies: menotropins (HIVES FROM PERGONAL 11/15/15) apixaban (HEMATOMA TO HIP 02/02/17) Home Med List: Acetaminophen With Codeine (Acetaminophen-Cod #4 Tablet) 300 MG-60 MG TABLET 1 TAB PO TID PRN PAIN (Reported) Albuterol Sulfate 2.5 MG/3 ML (0.083 %) VIAL.NEB 1 Vial INH/DANIKA PRN RESPIRATORY (Reported) Alprazolam 0.5 MG TABLET 1 TAB PO BIDP PRN ANXIETY (Reported) Amlodipine (Norvasc) 2.5 MG TABLET 1 TAB PO DAILY BP (Reported) Aspirin (Ecotrin*) 81 MG TABLET.DR 1 TAB PO DAILY HEART HEALTH (Reported) Calcium Carb & Citrate/Vit D3 (Calcium + D3 ER Tablet) 600 MG CALCIUM-500 UNIT TABLET.ER 1 TAB PO DAILY VIT (Reported) Dicyclomine HCl 10 MG CAPSULE 1 CAP PO TID ABD SPASM (Reported) Docusate Sodium (Colace) 100 MG CAPSULE 2 CAP PO QPM CONSTIPATION (Reported) Duloxetine Hydrochloride (Cymbalta) 30 MG CAPSULE.DR 1 CAP PO DAILY mental health (Reported) Ezetimibe (Zetia) 10 MG TABLET 1 TAB PO QPM CHOLESTEROL (Reported) Ferrous Sulfate 325 MG (65 MG IRON) TABLET 1 TAB PO TID SUPPLEMENT (Reported) Fish Oil/Borage/Flax/Om3,6,9#1 ([place] 3-6-9 1,200 MG Softgel) 1,200 MG CAPSULE 1 CAP PO DAILY VITAMIN (Reported) Fluticasone/Salmeterol (Advair 250-50 Diskus) 250 MCG-50 MCG/DOSE BLST.W.DEV 1 PUF INH BID BREATHING PROBLEMS (Reported) Furosemide 40 MG TABLET 1 TAB PO BID DIURETIC (Reported) Guaifenesin (Mucinex) 600 MG TAB.ER.12H 2 TAB PO BID EXPECTORANT (Reported) Levofloxacin (Levaquin) 250 MG TABLET 750 MG PO 1600 PNEUMONIA Levofloxacin (Levaquin) 500 MG TABLET 750 MG PO DAILY Pneumonia Levothyroxine Sodium 100 MCG TABLET 1 TAB PO DAILY AC THYROID (Reported) Loratadine 10 MG TABLET 10 MG PO DAILY Allergies Losartan (Cozaar) 100 MG TABLET 1 TAB PO DAILY BP (Reported) Metoprolol Tartrate 25 MG TABLET 25 MG PO BID Atrial fibrilation Montelukast Sodium 10 MG TABLET 1 TAB PO DAILY COPD (Reported) Niacin (Niaspan) 500 MG TAB.ER.24H 1 TAB PO DAILY VITAMIN (Reported) Nitroglycerin (Nitrostat) 0.4 MG TAB.SUBL 1 TAB SL AD PRN CHEST PAIN ( Reported) 1st sign of attack; may repeat every 5 minutes until relief; if pain persists after 3 tablets in 15 minutes, prompt medical att Nitroglycerin (Nitro-Dur) 0.6 MG/HOUR PATCH.TD24 1 PATCH TOP DAILY HEART ( Reported) Nystatin 100,000 UNIT/ML ORAL.SUSP 5 ML PO 4 TIMES/DAY ORAL THRUSH [place]-3 Fatty Acids/Fish Oil (Fish Oil 1,200 MG Softgel) 360 MG-1,200 MG CAPSULE.DR 1 CAP PO DAILY SUPPLEMENT (Reported) Omeprazole 40 MG CAPSULE.DR 1 CAP PO DAILY GI (Reported) Polyethylene Glycol 3350 (Miralax) 17 GRAM/DOSE POWDER 17 GM PO DAILY constipation mix with water, juice, soda, coffee or tea Potassium Chloride (Klor-Con M20) 20 MEQ TAB.ER.PRT 1 TAB PO DAILY VITAMIN ( Reported) Pravastatin Sodium (Pravachol) 40 MG TABLET 1 TAB PO QPM CHOLESTEROL ( Reported) Prednisone 10 MG TABLET 10 TAB PO SEE ADMIN CRITERIA COPD take 40 mg 02/20, 02/21. take 30 mg 02/22, 63. take 20 mg 02/24, 6. take 10 mg 02/26. Prednisone 10 MG TABLET 1 TAB PO DAILY COPD Roflumilast (Daliresp) 500 MCG TABLET 1 TAB PO DAILY COPD (Reported) . Tiotropium [place] (Spiriva) 18 MCG CAP.W.DEV 1 CAP INH DAILY copd Reason to Stop at ADM:[facility] NEBS ORDERS Vitamin E (Dl,Tocopheryl Acet) (Vitamin E) 400 UNIT CAPSULE 1 TAB PO DAILY SUPPLEMENT (Reported) Current Medications: Current Medications Sig/Lana Start time Last Medication Dose Route Stop Time Status Admin Albuterol Sulfate 3 ML EVERY 4 HRS/AWAKE 02/18 0800 AC 02/18 INH 5 Albuterol Sulfate 3 ML DAILY PRN 02/17 1430 AC INH Alprazolam 0.5 MG BID PRN 02/17 1430 AC 02/18 PO 02/24 1429 2044 Amlodipine Besylate 2.5 MG DAILY 02/18 0900 AC 02/19 PO 0811 Aspirin Buffered 81 MG DAILY 02/18 0900 AC 02/19 PO 0811 Azithromycin 500 MG Q24H 02/18 0900 DC Sodium Chloride 250 ML IV Budesonide 0.5 MG BID 02/17 2100 AC 02/18 INH 2034 Budesonide/ 2 PUF BID 02/17 1416 AC 02/18 Formoterol Fumarate INH 2024 Dicyclomine HCl 10 MG TID 02/17 2100 AC 02/19 PO 0813 Docusate Sodium 200 MG QPM 02/17 2100 AC 02/18 PO 2026 Duloxetine HCl 30 MG DAILY 02/19 0900 AC 02/19 PO 0811 Ezetimibe 10 MG QPM 02/17 2100 AC 02/18 PO 202 Ferrous Sulfate 325 MG TID 02/17 2100 AC 02/19 PO 0811 Furosemide 40 MG BID 02/17 2100 AC 02/19 PO 0811 Guaifenesin 1,200 MG BID 02/17 1416 AC 02/19 PO 0811 Heparin Sodium 5,000 UNIT Q8 02/17 2200 AC 02/18 (Porcine) SC 2024 Levofloxacin 750 MG 1600 02/17 1600 AC 02/18 PO 1621 Levothyroxine Sodium 0.1 MG DAILY AC 02/18 0700 AC 02/19 PO 0556 Loratadine 10 MG DAILY 02/18 0955 AC 02/19 PO 0810 Losartan Potassium 100 MG 2100 02/18 2100 AC 02/18 PO 202 Losartan Potassium 100 MG DAILY 02/18 0900 DC PO Melatonin 5 MG AT BEDTIME 02/18 2100 AC 02/18 PO 2026 Methylprednisolone 40 MG Q8 02/18 1400 AC 02/19 IV 0558 Metoprolol Tartrate 25 MG BID 02/17 2100 AC 02/19 PO 0811 Montelukast Sodium 10 MG DAILY 02/17 1416 AC 02/19 PO 0811 Nitroglycerin 0.6 MG DAILY PRN 02/17 1430 AC TOP Nitroglycerin 0.4 MG EVERY 5 MIN PRN 02/17 1430 AC SL Nystatin 5 ML 4 TIMES/DAY 02/18 1000 AC 02/19 PO 0809 Omeprazole 40 MG DAILY AC 02/17 1417 AC 02/19 PO 0556 Oxycodone/ 1 TAB Q6P PRN 02/17 2100 AC 02/18 Acetaminophen PO 2222 Patient Medication 1 ED ONE ONE 02/18 1815 DC Teaching ED 02/18 1816 Polyethylene Glycol 17 GM DAILY 02/18 0900 AC 02/19 PO 0809 Potassium Chloride 20 MEQ DAILY 02/18 0900 AC 02/19 PO 0811 Pravastatin Sodium 20 MG 1700 02/17 1700 AC 02/18 PO 1621 Prednisone 10 MG DAILY 02/18 0900 AC 02/19 PO 0811 Roflumilast 500 MCG DAILY 02/17 1430 AC 02/19 PO 0812 Sertraline HCl 200 MG DAILY 02/18 0900 DC PO Tiotropium [place] 1 PUF DAILY 02/17 1416 AC 02/19 INH 0812 Vitamin E 400 IU DAILY 02/17 1416 AC 02/19 PO 0811 Review of Systems Comments reviewed 18 pt ROS pertinent positives and negatives in HPI otherwise negative 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 diverticulosis Hepatic: NONE Renal: NONE Musculoskeletal: fibromyalgia, osteoarthritis, spinal stenosis Psychiatric: anxiety, depression, PTSD Endocrine: hypothyroidism Blood Disorders: anemia (iron deficiency) Cancer(s): SKIN CANCER FUR TAILOR/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 Home Who Do You Live With? child Services at Home: Home Health Aide, Nursing, Oxygen Primary Language: Albanian Smoking Status: Former Smoker Functional Ability ADLs Independent: dressing, eating, toileting, bathing. Ambulation: independent IADLs Independent: shopping, housework, finances, food prep, telephone, transportation , medication admin. Exam & Diagnostic Data Last 24 Hrs of Vital Signs/I&O Vital Signs Date Time Temp Pulse Resp B/P B/P Pulse O2 O2 Flow FiO2 Mean Ox Delivery Rate 02/19 0811 128/66 02/19 0811 128/66 02/19 0701 97.8 74 20 126/62 98 02/19 0000 94 Nasal 2.0L Cannula 02/18 2132 97.8 83 20 140/56 98 Nasal 2.0L Cannula 02/18 2027 140/56 02/18 2026 140/56 02/18 1615 98 Nasal 2.0L Cannula 02/18 1600 Nasal 2.0L Cannula 02/18 1423 97.6 79 20 120/56 97 Nasal Cannula 02/18 0934 85 118/70 02/18 0933 85 118/70 Intake & Output 02/19 1600 02/19 0800 02/19 0000 Intake Total 240 240 Output Total 700 Balance 240 -460 Intake, Oral 240 240 Output, Urine 700 Patient 128 lb Weight Physical Exam Other Physical Findings: gen-awake,alert head/neck-nasal cannula cvs-s1,s2 lungs-b/l rhonchi abd-soft,bs+ ext-no edema Last 48 Hrs of Labs/Wan: Laboratory Tests 02/19/18 0735: CBC w Diff Pending, WBC Pending, RBC Pending, Hgb Pending, Hct Pending, MCV Pending, MCH Pending, MCHC Pending, RDW Pending, Plt Count Pending, MPV Pending 02/18/18 0714: Anion Gap 13, Estimated GFR > 60, BUN/Creatinine Ratio 30.0 H, CBC w Diff NO MAN DIFF REQ, RBC 3.98 L, MCV 90.2, MCH 29.6, MCHC 32.9 L, RDW 16.1 H, MPV 6.9 L, Gran % 93.3 H, Lymphocytes % 3.3 L, Monocytes % 3.4, Eosinophils % 0, Basophils % 0, Absolute Granulocytes 20.8 H, Absolute Lymphocytes 0.7 L, Absolute Monocytes 0.8 H, Absolute Eosinophils 0, Absolute Basophils 0 02/17/18 1058: Anion Gap 12, Estimated GFR > 60, BUN/Creatinine Ratio 26.7 H, Glucose 106 H, Calcium 9.2, Total Bilirubin 0.6, AST 32, ALT 41, Alkaline Phosphatase 78, Troponin I 0.03, Total Protein 6.4, Albumin 3.8, Globulin 2.6, Albumin/Globulin Ratio 1.5, CBC w Diff MAN DIFF ORDERED, RBC 4.26, MCV 89.4, MCH 28.9, MCHC 32.3 L, RDW 15.7 H, MPV 6.8 L, Gran % 91.0 H, Lymphocytes % 3.2 L, Monocytes % 5.7, Eosinophils % 0.1, Basophils % 0, Absolute Granulocytes 24.1 H, Absolute Lymphocytes 0.8 L, Absolute Monocytes 1.5 H, Absolute Eosinophils 0, Absolute Basophils 0, Platelet Estimate ADEQUATE, Normocytic RBCs VERIFIED, Normochromic RBCs VERIFIED Microbiology 02/17 1839 URINE ROUT: Legionella Antigen - COMP 02/17 1839 URINE ROUT: Streptococcus pneumoniae Antigen (M - COMP 02/17 1640 NASOPHARYN: Influenza Virus A & B Rapid Smear - COMP Assessment/Plan Impression/Plan: Impression 68 year old woman * exacerbation of COPD secondary to RLL infiltrate with a history of pseudomonas * hemoptysis Plan -continue solumedrol, will taper with you - patient has an active order for prednisone please discontinue given solumedrol -patient on baseline 10mg of prednisone, we will try to taper to off this time -mucomyst nebulized bid x 72 hrs - RT notified -09/2017 no evidence of any malignancy, given patient's age and risk, will follow imaging on an outpatient basis -trc/nebs -on levaquin - can consider a prolonged course (7-10 days) - will discuss based on clinical course -would repeat cxr on an outpatient basis unless any events occur DVT prophylaxis at all times Consult Acknowledgment - Thank you for your consult request.
[2018-02-19 08:54] LABS: GRANULOCYTE % 90.3 % (42.2-75.2); PLATELET COUNT 373 /CUMM (130-400)
[2018-02-19 13:31] VITALS: BP 128/72
[2018-02-19 20:13] VITALS: BP 140/74
--- NOTE | 2018-02-20 07:23 | PN- Housestaff ---
Jeannine Whitfield 02/20/18 0722: Subjective Follow-up For: Chronic hypoxic respiratory failure Acute bronchitis COPD exacerbation RLL PNA Leukocytosis -may be secondary to chronic steroid use versus acute infection Chronic hyponatremia Subjective: Patient reports she feels better this morning. She denies CP, SOB, nausea, vomiting, urinary or bowel symptoms Review of Systems Constitutional: Reports: see HPI. Objective Last 24 Hrs of Vital Signs/I&O Vital Signs Date Time Temp Pulse Resp B/P B/P Pulse O2 O2 Flow FiO2 Mean Ox Delivery Rate 02/20 0827 99 Nasal 2.0L Cannula 02/20 08 98.4 72 18 118/68 98 Nasal 2.0L Cannula 02/20 0217 95 Nasal 2.0L Cannula 02/19 2200 89 140/74 02/19 2013 97.8 89 19 140/74 95 Nasal 2.0L Cannula 02/19 1610 93 Nasal 2.0L Cannula 02/19 1600 Nasal 2.0L Cannula 02/19 1331 98.5 75 18 128/72 98 Nasal 2.0L Cannula Intake & Output 02/20 1600 02/20 0800 02/20 0000 Intake Total 250 260 Output Total Balance 250 260 Intake, IV 10 20 Intake, Oral 240 240 Physical Exam General Appearance: Alert, Oriented X3, Cooperative, No Acute Distress Cardiovascular: Regular Rate, Normal S1, Normal S2 Lungs: Bl wheezing Abdomen: Normal Bowel Sounds, Soft, No Tenderness Extremities: No Edema Current Medications: Current Medications Sig/Lana Start time Last Medication Dose Route Stop Time Status Admin Acetylcysteine 2 ML BID 02/19 0902 AC 02/20 INH 0826 Albuterol Sulfate 3 ML EVERY 4 HRS/AWAKE 02/18 08 AC 02/20 INH 0826 Albuterol Sulfate 3 ML DAILY PRN 02/17 1430 AC INH Alprazolam 0.5 MG BID PRN 02/17 1430 AC 02/19 PO 02/24 1429 2227 Amlodipine Besylate 2.5 MG DAILY 02/18 09 AC 02/19 PO 0811 Artificial Tears 1 GTT BID 02/19 2100 AC 02/19 OU 2200 Aspirin Buffered 81 MG DAILY 02/18 09 AC 02/19 PO 0811 Budesonide 0.5 MG BID 02/17 2100 AC 02/20 INH 0826 Budesonide/ 2 PUF BID 02/17 1416 AC 02/19 Formoterol Fumarate INH 2200 Dicyclomine HCl 10 MG TID 02/17 2100 AC 02/19 PO 2200 Docusate Sodium 200 MG QPM 02/17 2100 AC 02/19 PO 2200 Duloxetine HCl 30 MG DAILY 02/19 0900 AC 02/19 PO 0811 Ezetimibe 10 MG QPM 02/17 2100 AC 02/19 PO 2200 Ferrous Sulfate 325 MG TID 02/17 2100 AC 02/19 PO 2200 Furosemide 40 MG BID 02/17 2100 AC 02/19 PO 2200 Guaifenesin 1,200 MG BID 02/17 1416 AC 02/19 PO 2200 Heparin Sodium 5,000 UNIT Q8 02/17 2200 AC 02/18 (Porcine) SC 2024 Lactobacillus 1 CAP ONCE ONE 02/19 2015 DC 02/19 Acidophilus PO 02/20 2016 220 Levofloxacin 750 MG 1600 02/17 1600 AC 02/19 PO 02/26 1601 1620 Levothyroxine Sodium 0.1 MG DAILY AC 02/18 0700 AC 02/20 PO 0602 Loratadine 10 MG ONCE ONE 02/20 2000 DC 02/19 PO 02/19 Loratadine 10 MG DAILY 02/18 0955 AC 02/19 PO 0810 Losartan Potassium 100 MG 2100 02/18 2100 AC 02/19 PO 2200 Melatonin 5 MG AT BEDTIME 02/18 2100 AC 02/19 PO 2200 Methylprednisolone 40 MG Q12 02/19 2100 AC 02/19 IV 2200 Metoprolol Tartrate 25 MG BID 02/17 2100 AC 02/19 PO 2200 Montelukast Sodium 10 MG DAILY 02/17 1416 AC 02/19 PO 0811 Nitroglycerin 0.6 MG DAILY PRN 02/17 1430 AC TOP Nitroglycerin 0.4 MG EVERY 5 MIN PRN 02/17 1430 AC SL Nystatin 5 ML 4 TIMES/DAY 02/18 1000 AC 02/19 PO 2200 Omeprazole 40 MG DAILY AC 02/17 1417 AC 02/20 PO 0602 Oxycodone/ 1 TAB Q6P PRN 02/17 2100 AC 02/19 Acetaminophen PO 2227 Patient Medication 1 ED ONE ONE 02/19 1045 DC Teaching ED 02/19 1046 Polyethylene Glycol 17 GM DAILY 02/18 0900 AC 02/19 PO 0809 Potassium Chloride 20 MEQ DAILY 02/18 0900 AC 02/19 PO 0811 Pravastatin Sodium 20 MG 1700 02/17 1700 AC 02/19 PO 1617 Roflumilast 500 MCG DAILY 02/17 1430 AC 02/19 PO 0812 Tiotropium [place] 1 PUF DAILY 02/17 1416 AC 02/19 INH 0812 Vitamin E 400 IU DAILY 02/17 1416 AC 02/19 PO 0811 Last 24 Hrs of Lab/Wan Results Last 24 Hrs of Labs/Mics: Laboratory Tests 02/20/18 0714: CBC w Diff Pending, WBC Pending, RBC Pending, Hgb Pending, Hct Pending, MCV Pending, MCH Pending, MCHC Pending, RDW Pending, Plt Count Pending, MPV Pending, Gran % Pending, Lymphocytes % Pending, Monocytes % Pending, Eosinophils % Pending, Basophils % Pending, Absolute Granulocytes Pending, Absolute Lymphocytes Pending, Absolute Monocytes Pending, Absolute Eosinophils Pending, Absolute Basophils Pending Assessment/Plan Assessment: Ms Escobar is a 67 yo F with PMH of A.fib s/p pacemaker and watchman device, not on any AC, COPD on 2L of O2, CHF, HTN, HLD, GERD, depression, IBS, OA, Anemia, hypothyroidism with recent discharge from [facility] 11/2017 for CAP who presents to the ED with chills, myalgias with low O2 sats Problem list: Chronic hypoxic respiratory failure Acute bronchitis COPD exacerbation RLL PNA Leukocytosis -may be secondary to chronic steroid use versus acute infection Chronic hyponatremia Plan: LRC showed many GPR, GNR and wbcs We will transiton IV Methyprednisolone to PO taper TRC/nebs PRN Continue levofloxacin 750 Await final blood cultures Influenza swab was negative Urine strep and legionella ag was negative We will continue to monitor white count Continue home meds: Alprazolam, ASA, amlodipine, losartan, statin, Roflumilast, dicyclomine, furosemide, guaifenesin, sertraline, ezetimibe, Synthroid, metoprolol, montelukast Pain: Percocet Appreciate Pulm recommendations Diet: Heart healthy DVT: Enoxaparin Code: FULL Problem List: 1. COPD exacerbation 2. Pneumonia Pain Ratin Pain Location: NA Pain Goal: Remain pain free Pain Plan: NA Tomorrow's Labs & Rationales: CBC Lio MD,Kristy 02/20/18 1113: Attending MD Review Statement Attending Statement Attending MD Statement: examined this patient, discuss w/resident/PA/SHRINK PIT SUPERVISOR, agreed w/resident/PA/SHRINK PIT SUPERVISOR, reviewed EMR data (avail), discussed with nursing, discussed with case mgmt, reviewed images, amended to note Attending Assessment/Plan: Patient seen and examined, claims that she is feeling slightly better today. After the Mucomyst nebulized, she was able to bring some of the phlegm up. Vital Signs Date Time Temp Pulse Resp B/P B/P Pulse O2 O2 Flow FiO2 Mean Ox Delivery Rate 02/20 0939 70 138/68 02/20 0938 70 138/68 02/20 0827 99 Nasal 2.0L Cannula 02/20 0800 98.4 72 18 118/68 98 Nasal 2.0L Cannula 02/20 0217 95 Nasal 2.0L Cannula 02/19 2200 89 140/74 02/19 2013 97.8 89 19 140/74 95 Nasal 2.0L Cannula 02/19 1610 93 Nasal 2.0L Cannula 02/19 1600 Nasal 2.0L Cannula 02/19 1331 98.5 75 18 128/72 98 Nasal 2.0L Cannula on exam; aox3, nad. cv; s1, s2, rrr resp; + b/l junky bs with wheeze but definitely better than yesterday. abd; soft, nt, bs+ ext; no edema. Laboratory Tests 02/20 07 Hematology CBC w Diff NO MAN DIFF REQ WBC (4.8 - 10.8 /CUMM) 16.1 H RBC (4.20 - 5.40 /CUMM) 3.97 L Hgb (12.0 - 16.0 G/DL) 11.7 L Hct (37 - 47 %) 35.7 L MCV (81.0 - 99.0 FL) 90.1 MCH (27.0 - 31.0 PG) 29.6 MCHC (33.0 - 37.0 G/DL) 32.9 L RDW (11.5 - 14.5 %) 15.5 H Plt Count (130 - 400 /CUMM) 432 H MPV (7.4 - 10.4 FL) 6.9 L Gran % (42.2 - 75.2 %) 90.7 H Lymphocytes % (20.5 - 51.1 %) 6.5 L Monocytes % (1.7 - 9.3 %) 2.8 Eosinophils % (0 - 5 %) 0 Basophils % (0.0 - 2.0 %) 0 Absolute Granulocytes (1.4 - 6.5 /CUMM) 14.6 H Absolute Lymphocytes (1.2 - 3.4 /CUMM) 1.0 L Absolute Monocytes (0.10 - 0.60 /CUMM) 0.5 Absolute Eosinophils (0.0 - 0.7 /CUMM) 0 Absolute Basophils (0.0 - 0.2 /CUMM) 0 A/P: 68 y/o F with pmh sig for A.fib s/p pacemaker and watchman device, not on any AC, COPD on 2L of O2, CHF, HTN, HLD, GERD, depression, IBS, OA, Anemia, hypothyroidism with recent admission to with CAP, admitted this time with small rll pna as well acute copd exacerbation. Leukocytosis improving. Sputum culture growing Pseudomonas. As discussed with Dr. Whitney. Will continue IV steroids today. We'll continue Levaquin. We will try to do 7-10 day course this time. Continue TRC nebs and inhalers. Patient getting Mucomyst nebulized. She claims that Claritin helps with her allergic rhinitis symptoms. Patient was encouraged to ambulate. DVT px; Hep sq.
[2018-02-20 08:00] VITALS: BP 118/68
[2018-02-20 08:50] LABS: ABSOLUTE BASOPHIL COUNT 0 /CUMM (0.0-0.2); ABSOLUTE EOSINOPHIL COUNT 0 /CUMM (0.0-0.7); ABSOLUTE GRANULOCYTE CT 14.6 /CUMM (1.4-6.5); ABSOLUTE MONOCYTE COUNT 0.5 /CUMM (0.10-0.60); BASOPHIL % 0 % (0.0-2.0); EOSINOPHIL % 0 % (0-5); HEMATOCRIT 35.7 % (37-47); MEAN CORPUSCULAR HGB 29.6 PG (27.0-31.0); MEAN CORPUSCULAR HGB CONC 32.9 G/DL (33.0-37.0); MEAN CORPUSCULAR VOLUME 90.1 FL (81.0-99.0); MEAN PLATELET VOLUME 6.9 FL (7.4-10.4); RBC DISTRIBUTION WIDTH 15.5 % (11.5-14.5); RED BLOOD CELL CT 3.97 /CUMM (4.20-5.40); WHITE BLOOD CELL COUNT 16.1 /CUMM (4.8-10.8)
--- NOTE | 2018-02-20 09:34 | PN- Pulmonary ---
Subjective HPI/Critical Care Issues: pt seen and examined leukocytosis improved 99% 2LNC GNR in sputum Objective Current Medications: Current Medications Sig/Lana Start time Last Medication Dose Route Stop Time Status Admin Acetylcysteine 2 ML BID 02/19 0902 AC 02/20 INH 0826 Albuterol Sulfate 3 ML EVERY 4 HRS/AWAKE 02/18 0800 AC 02/20 INH 0826 Albuterol Sulfate 3 ML DAILY PRN 02/17 1430 AC INH Alprazolam 0.5 MG BID PRN 02/17 1430 AC 02/19 PO 02/24 1429 2227 Amlodipine Besylate 2.5 MG DAILY 02/18 0900 AC 02/19 PO 0811 Artificial Tears 1 GTT BID 02/19 2100 AC 02/19 OU 2200 Aspirin Buffered 81 MG DAILY 02/18 0900 AC 02/19 PO 0811 Budesonide 0.5 MG BID 02/17 2100 AC 02/20 INH 0826 Budesonide/ 2 PUF BID 02/17 1416 AC 02/19 Formoterol Fumarate INH 2200 Dicyclomine HCl 10 MG TID 02/17 2100 AC 02/19 PO 2200 Docusate Sodium 200 MG QPM 02/17 2100 AC 02/19 PO 2200 Duloxetine HCl 30 MG DAILY 02/19 0900 AC 02/19 PO 0811 Ezetimibe 10 MG QPM 02/17 2100 AC 02/19 PO 2200 Ferrous Sulfate 325 MG TID 02/17 2100 AC 02/19 PO 2200 Furosemide 40 MG BID 02/17 2100 AC 02/19 PO 2200 Guaifenesin 1,200 MG BID 02/17 1416 AC 02/19 PO 2200 Heparin Sodium 5,000 UNIT Q8 02/17 2200 AC 02/18 (Porcine) SC 2024 Lactobacillus 1 CAP ONCE ONE 02/19 2015 DC 02/19 Acidophilus PO 02/19 2016 2199 Levofloxacin 750 MG 1600 02/17 1600 AC 02/19 PO 02/26 1601 1620 Levothyroxine Sodium 0.1 MG DAILY AC 02/18 0700 AC 02/20 PO 0602 Loratadine 10 MG ONCE ONE 02/20 2000 DC 02/19 PO 02/19 2001 2200 Loratadine 10 MG DAILY 02/18 0955 AC 02/19 PO 0810 Losartan Potassium 100 MG 2100 02/18 2100 AC 02/19 PO 2200 Melatonin 5 MG AT BEDTIME 02/18 2100 AC 02/19 PO 2200 Methylprednisolone 40 MG Q12 02/19 2100 AC 02/19 IV 2200 Metoprolol Tartrate 25 MG BID 02/17 2100 AC 02/19 PO 2200 Montelukast Sodium 10 MG DAILY 02/17 1416 AC 02/19 PO 0811 Nitroglycerin 0.6 MG DAILY PRN 02/17 1430 AC TOP Nitroglycerin 0.4 MG EVERY 5 MIN PRN 02/17 1430 AC SL Nystatin 5 ML 4 TIMES/DAY 02/18 1000 AC 02/19 PO 2200 Omeprazole 40 MG DAILY AC 02/17 1417 AC 02/20 PO 0602 Oxycodone/ 1 TAB Q6P PRN 02/17 2100 AC 02/19 Acetaminophen PO 2227 Patient Medication 1 ED ONE ONE 02/19 1045 DC Teaching ED 02/19 1046 Polyethylene Glycol 17 GM DAILY 02/18 0900 AC 02/19 PO 0809 Potassium Chloride 20 MEQ DAILY 02/18 0900 AC 02/19 PO 0811 Pravastatin Sodium 20 MG 1700 02/17 1700 AC 02/19 PO 1617 Roflumilast 500 MCG DAILY 02/17 1430 AC 02/19 PO 0812 Tiotropium [place] 1 PUF DAILY 02/17 1416 AC 02/19 INH 0812 Vitamin E 400 IU DAILY 02/17 1416 AC 02/19 PO 0811 Vital Signs & I&O Last 24 Hrs of Vitals and I&O: Vital Signs Date Time Temp Pulse Resp B/P B/P Pulse O2 O2 Flow FiO2 Mean Ox Delivery Rate 02/20 0827 99 Nasal 2.0L Cannula 02/20 08 98.4 72 18 118/68 98 Nasal 2.0L Cannula 02/20 0217 95 Nasal 2.0L Cannula 02/19 2200 89 140/74 02/19 2013 97.8 89 19 140/74 95 Nasal 2.0L Cannula 02/19 1610 93 Nasal 2.0L Cannula 02/19 1600 Nasal 2.0L Cannula 02/19 1331 98.5 75 18 128/72 98 Nasal 2.0L Cannula Intake & Output 02/20 1600 02/20 0800 02/20 0000 Intake Total 250 260 Output Total Balance 250 260 Intake, IV 10 20 Intake, Oral 240 240 Exam Other Physical Findings: gen-awake,alert head/neck-nasal cannula cvs-s1,s2 lungs-b/l rhonchi abd-soft,bs+ ext-no edema Results Last 24 Hrs of Lab Results: Laboratory Tests 02/20/18 0714: CBC w Diff Pending, WBC Pending, RBC Pending, Hgb Pending, Hct Pending, MCV Pending, MCH Pending, MCHC Pending, RDW Pending, Plt Count Pending, MPV Pending, Gran % Pending, Lymphocytes % Pending, Monocytes % Pending, Eosinophils % Pending, Basophils % Pending, Absolute Granulocytes Pending, Absolute Lymphocytes Pending, Absolute Monocytes Pending, Absolute Eosinophils Pending, Absolute Basophils Pending Impression/Plan Impression/Plan Impression/Plan: Impression 68 year old woman * exacerbation of COPD secondary to RLL infiltrate with a history of pseudomonas * hemoptysis Plan -continue solumedrol, will taper with you - patient has an active order for prednisone please discontinue given solumedrol -patient on baseline 10mg of prednisone, we will try to taper to off this time -mucomyst nebulized bid x 72 hrs - RT notified -09/2017 no evidence of any malignancy, given patient's age and risk, will follow imaging on an outpatient basis -trc/nebs -on levaquin - can consider a prolonged course (7-10 days) - will discuss based on clinical course -would repeat cxr on an outpatient basis unless any events occur DVT prophylaxis at all times
[2018-02-20 09:49] LABS: GRANULOCYTE % 90.7 % (42.2-75.2); PLATELET COUNT 432 /CUMM (130-400)
[2018-02-20 14:08] VITALS: BP 128/70
[2018-02-20] MEDS ORDERED: LEVAQUIN250 M1 PO (15:19)
[2018-02-20 21:54] VITALS: BP 142/60
[2018-02-21 06:00] VITALS: BP 160/70
--- NOTE | 2018-02-21 07:40 | PN- Housestaff ---
Jeannine Whitfield 02/21/18 0739: Subjective Follow-up For: Chronic hypoxic respiratory failure Acute bronchitis COPD exacerbation RLL PNA Leukocytosis -may be secondary to chronic steroid use versus acute infection Chronic hyponatremia Subjective: Patient reports her breathing has improved with the mucomyst. She denies CP, SOB , nausea, vomiting, urinary or bowel symptoms Review of Systems Constitutional: Reports: see HPI. Objective Last 24 Hrs of Vital Signs/I&O Vital Signs Date Time Temp Pulse Resp B/P B/P Pulse O2 O2 Flow FiO2 Mean Ox Delivery Rate 02/21 0915 68 160/70 02/21 0914 68 160/70 02/21 0849 96 Nasal 2.0L Cannula 02/21 0800 96 Nasal 2.0L Cannula 02/21 0600 96.8 68 18 160/70 97 Nasal 2.0L Cannula 02/21 0000 Nasal 2.0L Cannula 02/20 2154 97.8 73 19 142/60 98 Nasal 2.0L Cannula 02/20 2145 73 142/60 02/20 2145 73 142/60 02/20 1610 98 Nasal 2.0L Cannula 02/20 1600 Nasal 2.0L Cannula 02/20 1408 97.8 77 20 128/70 97 Intake & Output 02/21 1600 02/21 0800 02/21 0000 Intake Total 350 Output Total Balance 350 Intake, Oral 350 Patient 122 lb Weight Weight Bed scale Measurement Method Physical Exam General Appearance: Alert, Oriented X3, Cooperative, No Acute Distress Cardiovascular: Regular Rate, Normal S1, Normal S2 Lungs: BL wheezing Abdomen: Normal Bowel Sounds, Soft, No Tenderness Extremities: No Edema Current Medications: Current Medications Sig/Lana Start time Last Medication Dose Route Stop Time Status Admin Acetylcysteine 2 ML BID 02/19 0902 AC 02/21 INH 0833 Albuterol Sulfate 3 ML EVERY 4 HRS/AWAKE 02/18 08 AC 02/21 INH 1220 Albuterol Sulfate 3 ML DAILY PRN 02/17 1430 AC INH Alprazolam 0.5 MG BID PRN 02/17 1430 AC 02/20 PO 02/24 1429 1942 Amlodipine Besylate 2.5 MG DAILY 02/18 900 AC 02/21 PO 0915 Artificial Tears 1 GTT BID 02/19 2100 AC 02/21 OU 0919 Aspirin Buffered 81 MG DAILY 02/18 900 AC 02/21 PO 0914 Budesonide 0.5 MG BID 02/17 2100 AC 02/21 INH 0833 Budesonide/ 2 PUF BID 02/17 1416 AC 02/21 Formoterol Fumarate INH 0916 Dicyclomine HCl 10 MG TID 02/17 2100 AC 02/21 PO 1315 Docusate Sodium 200 MG QPM 02/17 2100 AC 02/20 PO 2144 Duloxetine HCl 30 MG DAILY 02/19 0900 AC 02/21 PO 0914 Ezetimibe 10 MG QPM 02/17 2100 AC 02/20 PO 2145 Ferrous Sulfate 325 MG TID 02/17 2100 AC 02/21 PO 1315 Furosemide 40 MG BID 02/17 2100 AC 02/21 PO 0914 Guaifenesin 1,200 MG BID 02/17 1416 AC 02/21 PO 0914 Heparin Sodium 5,000 UNIT Q8 02/17 2200 AC 02/18 (Porcine) SC 2024 Lactobacillus 1 CAP ONCE ONE 02/205 DC 02/21 Acidophilus PO 02/20 2216 0017 Levofloxacin 750 MG 1600 02/17 1600 AC 02/20 PO 02/26 1601 1719 Levothyroxine Sodium 0.1 MG DAILY AC 02/18 0700 AC 02/21 PO 0608 Loratadine 10 MG ONCE ONE 02/20 2215 DC 02/21 PO 02/20 2216 0017 Loratadine 10 MG DAILY 02/18 0955 AC 02/21 PO 0914 Losartan Potassium 100 MG 02/18 2100 AC 02/20 PO 2145 Melatonin 5 MG AT BEDTIME 02/18 2100 AC 02/20 PO 2145 Methylprednisolone 40 MG Q12 02/19 2100 AC 02/21 IV 0919 Metoprolol Tartrate 25 MG BID 02/17 2100 AC 02/21 PO 0914 Montelukast Sodium 10 MG DAILY 02/17 1416 AC 02/21 PO 0915 Nitroglycerin 0.6 MG DAILY PRN 02/17 1430 AC 02/21 TOP 0650 Nitroglycerin 0.4 MG EVERY 5 MIN PRN 02/17 1430 AC SL Nystatin 5 ML 4 TIMES/DAY 02/18 1000 AC 02/21 PO 1207 Omeprazole 40 MG DAILY AC 02/17 1417 AC 02/21 PO 0608 Oxycodone/ 1 TAB Q6P PRN 02/17 2100 AC 02/21 Acetaminophen PO 1211 Patient Medication 1 ED ONE ONE 02/20 1630 [facility] ED 02/20 1631 Polyethylene Glycol 17 GM DAILY 02/18 09 AC 02/21 PO 0919 Potassium Chloride 20 MEQ DAILY 02/18 0900 AC 02/21 PO 0914 Pravastatin Sodium 20 MG 1700 02/17 1700 AC 02/20 PO 1719 Roflumilast 500 MCG DAILY 02/17 1430 AC 02/21 PO 0916 Tiotropium [place] 1 PUF DAILY 02/17 1416 AC 02/21 INH 0918 Vitamin E 400 IU DAILY 02/17 1416 AC 02/21 PO 0916 Last 24 Hrs of Lab/Wan Results Last 24 Hrs of Labs/Mics: Laboratory Tests 02/21/18 0804: CBC w Diff NO MAN DIFF REQ, RBC 3.86 L, MCV 90.2, MCH 29.9, MCHC 33.2, RDW 15.9 H, MPV 6.6 L, Gran % 80.1 H, Lymphocytes % 14.4 L, Monocytes % 5.5, Eosinophils % 0, Basophils % 0, Absolute Granulocytes 9.3 H, Absolute Lymphocytes 1.7, Absolute Monocytes 0.6, Absolute Eosinophils 0, Absolute Basophils 0 Assessment/Plan Assessment: Ms Escobar is a 67 yo F with PMH of A.fib s/p pacemaker and watchman device, not on any AC, COPD on 2L of O2, CHF, HTN, HLD, GERD, depression, IBS, OA, Anemia, hypothyroidism with recent discharge from [place] 11/2017 for CAP who presents to the ED with chills, myalgias with low O2 sats Problem list: Chronic hypoxic respiratory failure Acute bronchitis COPD exacerbation RLL PNA Leukocytosis -may be secondary to chronic steroid use versus acute infection Chronic hyponatremia Plan: LRC showed many GPR, GNR and wbcs We will transiton IV Methyprednisolone to PO taper TRC/nebs PRN Continue levofloxacin 750 to complete a 10-day course Influenza swab was negative Urine strep and legionella ag was negative We will continue to monitor white count Continue home meds: Alprazolam, ASA, amlodipine, losartan, statin, Roflumilast, dicyclomine, furosemide, guaifenesin, sertraline, ezetimibe, Synthroid, metoprolol, montelukast Pain: Percocet Appreciate Pulm recommendations Diet: Heart healthy DVT: Enoxaparin Code: FULL Problem List: 1. Bacterial pneumonia 2. COPD exacerbation Pain Ratin Pain Location: NA Pain Goal: Remain pain free Pain Plan: NA Tomorrow's Labs & Rationales: none Kristy Vaca MD 02/21/18 1140: Attending MD Review Statement Attending Statement Attending MD Statement: examined this patient, discuss w/resident/PA/TRUCK BRACER, agreed w/resident/PA/TRUCK BRACER, reviewed EMR data (avail), discussed with nursing, discussed with case mgmt, reviewed images, amended to note Attending Assessment/Plan: Patient seen and examined, overall feeling better today. Claims that Mucomyst nebulized really helped getting the sputum. Her breathing status is better. She did take a walk and her oxygen saturation remained in the 90s. As discussed with Dr. Whitney, steroids can be switched to oral. Patient will be continued on Oral abx for total of 10 days. Patient medically stable for discharge. Will follow up with PCP, Pulm and COPD wellness clinic.
[2018-02-21 09:40] LABS: ABSOLUTE BASOPHIL COUNT 0 /CUMM (0.0-0.2); ABSOLUTE EOSINOPHIL COUNT 0 /CUMM (0.0-0.7); ABSOLUTE GRANULOCYTE CT 9.3 /CUMM (1.4-6.5); ABSOLUTE LYMPH COUNT 1.7 /CUMM (1.2-3.4); ABSOLUTE MONOCYTE COUNT 0.6 /CUMM (0.10-0.60); BASOPHIL % 0 % (0.0-2.0); EOSINOPHIL % 0 % (0-5); GRANULOCYTE % 80.1 % (42.2-75.2); HEMATOCRIT 34.8 % (37-47); MEAN CORPUSCULAR HGB 29.9 PG (27.0-31.0); MEAN CORPUSCULAR HGB CONC 33.2 G/DL (33.0-37.0); MEAN CORPUSCULAR VOLUME 90.2 FL (81.0-99.0); MEAN PLATELET VOLUME 6.6 FL (7.4-10.4); PLATELET COUNT 431 /CUMM (130-400); RBC DISTRIBUTION WIDTH 15.9 % (11.5-14.5); RED BLOOD CELL CT 3.86 /CUMM (4.20-5.40); WHITE BLOOD CELL COUNT 11.6 /CUMM (4.8-10.8)
[2018-02-21] MEDS ORDERED: PREDNISONE10 M2 PO ×2 (10:52→11:30)
[2018-02-21] MEDS ORDERED: LEVAQUIN250 M1 PO (10:52)
[2018-02-21] MEDS ORDERED: NYSTATIN100000 UNI PO ×2 (10:52→11:30)
[2018-02-21] MEDS ORDERED: LEVAQUIN500 M1 PO (11:08)
[2018-02-21] MEDS ORDERED: LORATADINE10 M1 PO (11:30)
--- NOTE | 2018-02-21 11:36 | Discharge Summary ---
Visit Information Visit Dates Admission Date: 02/17/18 Discharge Date: 02/21/18 Hospital Course Course Attending Physician: Kristy Vaca MD Primary Care Physician: Gerard Rodas MD Hospital Course: Ms Escobar is a 67 yo F with PMH of A.fib s/p pacemaker and watchman device, not on any AC, COPD on 2L of O2, CHF, HTN, HLD, GERD, depression, IBS, OA, Anemia, hypothyroidism with recent discharge from [place] 11/2017 for CAP who presents to the ED with chills, myalgias with low O2 sats Problem list: Chronic hypoxic respiratory failure Acute bronchitis RLL PNA Chronic hyponatremia Pulmonology was consulted. She was given TRC/nebs PRN. We continued her home meds. Her Influenza swab, Urine strep and legionella ag were negative. Lower respiratory cultures was positive for Pseudomonas. Imaging was consistent with a right lower lobe pneumonia. She was administered levofloxacin 750 to complete a 10-day course and her IV methyprednisolone was transitioned to a oral taper. We monitored her low sodium which subsequently resolved. She continued to improve during her hospital stay. Patient voiced concern of being weaned off chronic steroids and she was advised to follow up with pulmonology to address those concerns as an outpatient. Allergies: Coded Allergies: menotropins (HIVES FROM PERGONAL 11/15/15) apixaban (HEMATOMA TO HIP 02/02/17) Pertinent Lab Results: 02/17/18-1031 EXAM TYPE: RAD - XRY-CHEST XRAY, TWO VIEWS FINDINGS: The cardiac and mediastinal contours are stable. There is a left subclavian dual chamber pacemaker unchanged in position. There is a cardiac device that is unchanged. The lungs are well inflated. There is airspace disease seen in the right lower lobe suggestive of a small right lower lobe pneumonia. The left lung is clear. There is a small right pleural effusion. There are mild degenerative changes of the spine. IMPRESSION: Small right lower lobe pneumonia and right pleural effusion. Disposition Summary Disposition Principal Diagnosis: Chronic hypoxic respiratory failure Acute bronchitis RLL PNA Additional Diagnosis: as above Discharge Disposition: home or self care Discharge Instructions General Discharge Information Code Status: Full Code Patient's Diet: Heart healthy Patient's Activity: Full Follow-Up Instructions/Appts: COMPLETE YOUR PREDNISONE TAPER BEFORE RESUMING YOUR HOME DOSE FOLLOW UP WITH YOUR SOCIAL WORK ASSISTANT-DR. CONKLIN WITHIN 1 WEEK OF DISCHARGE FOLLOW UP WITH YOUR PCP-DR. RODAS WITHIN 1-2 WEEKS OF DISCHARGE Medications at Discharge Discharge Medications: Continue taking these medications: Levothyroxine Sodium (Levothyroxine Sodium) 100 MCG TABLET 1 Tablet ORAL DAILY BEFORE BREAKFAST Comments: Last Taken: 02/21/18 Time: 0608 Ezetimibe (Zetia) 10 MG TABLET 1 Tablet ORAL Every night Comments: Last Taken: 02/20/18 Time: 2145 Ferrous Sulfate (Ferrous Sulfate) 325 MG (65 MG IRON) TABLET 1 Tablet ORAL THREE TIMES DAILY Comments: Last Taken: 02/21/18 Time: 1300 Pravastatin Sodium (Pravachol) 40 MG TABLET 1 Tablet ORAL Every night Comments: Last Taken: 02/21/18 Time: 1719 Montelukast Sodium (Montelukast Sodium) 10 MG TABLET 1 Tablet ORAL DAILY Comments: Last Taken: 02/21/18 Time: 0915 Vitamin E (Dl,Tocopheryl Acet) (Vitamin E) 400 UNIT CAPSULE 1 Tablet ORAL DAILY Comments: Last Taken: 02/21/18 Time: 0915 Guaifenesin (Mucinex) 600 MG TAB.ER.12H 2 Tablet ORAL TWICE DAILY Comments: Last Taken: 02/21/18 Time: 0915 Tiotropium [place] (Spiriva) 18 MCG CAP.W.DEV 1 Capsule Inhale through mouth DAILY Qty = 3 Instructions: Reason to Stop at ADM:TRC NEBS ORDERS Comments: Last Taken: 02/21/18 Time: 0915 Fluticasone/Salmeterol (Advair 250-50 Diskus) 250 MCG-50 MCG/DOSE BLST.W.DEV 1 Puff Inhale through mouth TWICE DAILY Comments: NOT GIVEN IN HOSPITAL Albuterol Sulfate (Albuterol Sulfate) 2.5 MG/3 ML (0.083 %) VIAL.NEB 1 Vial Inhale Solution as needed for RESPIRATORY Comments: Last Taken: 02/21/18 Time: 1200 Nitroglycerin (Nitro-Dur) 0.6 MG/HOUR PATCH.TD24 1 PATCH On the skin DAILY Comments: Last Taken: 02/21/18 Time: 0650 Omeprazole (Omeprazole) 40 MG CAPSULE.DR 1 Capsule ORAL DAILY Comments: Last Taken: 02/21/18 Time: 0608 [place]-3 Fatty Acids/Fish Oil (Fish Oil 1,200 MG Softgel) 360 MG-1,200 MG CAPSULE. 1 Capsule ORAL DAILY Comments: NOT GIVEN IN HOSPITAL Furosemide (Furosemide) 40 MG TABLET 1 Tablet ORAL TWICE DAILY Comments: Last Taken: 02/21/18 Time: 914 Nitroglycerin (Nitrostat) 0.4 MG TAB.SUBL 1 Tablet SUBLINGUAL As Directed as needed for CHEST PAIN Instructions: 1st sign of attack; may repeat every 5 minutes until relief; if pain persists after 3 tablets in 15 minutes, prompt medical att Comments: NOT GIVEN Roflumilast (Daliresp) 500 MCG TABLET 1 Tablet ORAL DAILY Qty = 30 Instructions: . Comments: Last Taken:02/21/18 Time: 914 Alprazolam (Alprazolam) 0.5 MG TABLET 1 Tablet ORAL 2 x Daily as needed as needed for ANXIETY Comments: Last Taken: 02/20/18 Time: 1941 Metoprolol Tartrate (Metoprolol Tartrate) 25 MG TABLET 25 Milligram ORAL TWICE DAILY Qty = 60 Comments: Last Taken: 02/21/18 Time: 913 Polyethylene Glycol 3350 (Miralax) 17 GRAM/DOSE POWDER 17 Gram ORAL DAILY Qty = 255 Instructions: mix with water, juice, soda, coffee or tea Comments: Last Taken: 02/21/18 Time: 914 Docusate Sodium (Colace) 100 MG CAPSULE 2 Capsule ORAL Every night Comments: Last Taken: 02/20/18 Time: 2143 Potassium Chloride (Klor-Con M20) 20 MEQ TAB.ER.PRT 1 Tablet ORAL DAILY Comments: Last Taken: 02/21/18 Time: 914 Dicyclomine HCl (Dicyclomine HCl) 10 MG CAPSULE 1 Capsule ORAL THREE TIMES DAILY Comments: Last Taken: 02/21/18 Time: 1300 Calcium Carb & Citrate/Vit D3 (Calcium + D3 ER Tablet) 600 MG CALCIUM-500 UNIT TABLET.ER 1 Tablet ORAL DAILY Comments: NOT TAKEN IN HOSPITAL Aspirin (Ecotrin*) 81 MG TABLET. 1 Tablet ORAL DAILY Comments: Last Taken: 02/21/18 Time: 913 Niacin (Niaspan) 500 MG TAB.ER.24H 1 Tablet ORAL DAILY Comments: NOT GIVEN Fish Oil/Borage/Flax/Om3,6,9#1 ([place] 3-6-9 1,200 MG Softgel) 1,200 MG CAPSULE 1 Capsule ORAL DAILY Comments: NOT TAKEN IN HOSPITAL Acetaminophen With Codeine (Acetaminophen-Cod #4 Tablet) 300 MG-60 MG TABLET 1 Tablet ORAL THREE TIMES DAILY as needed for PAIN Comments: NOT TAKEN IN HOSPITAL Prednisone (Prednisone) 10 MG TABLET 1 Tablet ORAL DAILY Qty = 30 Comments: NOT GIVEN Amlodipine (Norvasc) 2.5 MG TABLET 1 Tablet ORAL DAILY Comments: Last Taken: 02/21/18 Time: 914 Losartan (Cozaar) 100 MG TABLET 1 Tablet ORAL DAILY Comments: Last Taken:02/20/18 Time:2144 Duloxetine Hydrochloride (Cymbalta) 30 MG CAPSULE.DR 1 Capsule ORAL DAILY Qty = 30 Comments: Last Taken: 02/21/18 Time: 914 Levofloxacin (Levaquin) 500 MG TABLET 750 Milligram ORAL DAILY Qty = 5 Comments: Last Taken: 02/20/18 Time:1718 This prescription has been renewed Start taking the following new medications: Levofloxacin (Levaquin) 250 MG TABLET 750 Milligram ORAL 1600 Qty = 3 No Refills Instructions: . Comments: Last Taken:02/20/18 Time:1718 Prednisone (Prednisone) 10 MG TABLET 10 Tablet ORAL SEE INSTRUCTIONS Qty = 62 No Refills Instructions: take 60mg 6/2-6/4.50MG /-/7.40MG 8-03/10. 30mg 03/03-03/05 20MG /14-/16. 10MG 03/09 Comments: NOT GIVEN Nystatin (Nystatin) 100,000 UNIT/ML ORAL.SUSP 5 Milliliters ORAL 4 TIMES A DAY Qty = 1 No Refills Instructions: ,. Comments: Last Taken:02/21/18 Time:1200 Loratadine (Loratadine) 10 MG TABLET 10 Milligram ORAL DAILY Qty = 30 No Refills Instructions: , Comments: Last Taken:02/21/18 Time:914 Copies To: Roscoe Conklin MD; Clark ETIENNE,Roscoe Solis MD; Gerard Rodas MD
--- NOTE | 2018-02-21 13:20 | PN- Pulmonary ---
Subjective HPI/Critical Care Issues: pt seen and examined feeling better planning for dc Objective Current Medications: Current Medications Sig/Lana Start time Last Medication Dose Route Stop Time Status Admin Acetylcysteine 2 ML BID 02/19 0902 AC 02/21 INH 0833 Albuterol Sulfate 3 ML EVERY 4 HRS/AWAKE 02/18 0800 AC 02/21 INH 1220 Albuterol Sulfate 3 ML DAILY PRN 02/17 1430 AC INH Alprazolam 0.5 MG BID PRN 02/17 1430 AC 02/20 PO 02/24 1429 1942 Amlodipine Besylate 2.5 MG DAILY 02/18 0900 AC 02/21 PO 0915 Artificial Tears 1 GTT BID 02/19 2100 AC 02/21 OU 0919 Aspirin Buffered 81 MG DAILY 02/18 0900 AC 02/21 PO 0914 Budesonide 0.5 MG BID 02/17 2100 AC 02/21 INH 0833 Budesonide/ 2 PUF BID 02/17 1416 AC 02/21 Formoterol Fumarate INH 0916 Dicyclomine HCl 10 MG TID 02/17 2100 AC 02/21 PO 0914 Docusate Sodium 200 MG QPM 02/17 2100 AC 02/20 PO 2144 Duloxetine HCl 30 MG DAILY 02/19 0900 AC 02/21 PO 0914 Ezetimibe 10 MG QPM 02/17 2100 AC 02/20 PO 2145 Ferrous Sulfate 325 MG TID 02/17 2100 AC 02/21 PO 0914 Furosemide 40 MG BID 02/17 2100 AC 02/21 PO 0914 Guaifenesin 1,200 MG BID 02/17 1416 AC 02/21 PO 0914 Heparin Sodium 5,000 UNIT Q8 02/17 2200 AC 02/18 (Porcine) [place] 2024 Lactobacillus 1 CAP ONCE ONE 02/20 221 DC 02/21 Acidophilus PO 02/20 221 0017 Levofloxacin 750 MG 1600 02/17 1600 AC 02/20 PO 02/26 1601 1719 Levothyroxine Sodium 0.1 MG DAILY AC 02/18 0700 AC 02/21 PO 0608 Loratadine 10 MG ONCE ONE 02/20 2215 DC 02/21 PO 02/20 2216 0017 Loratadine 10 MG DAILY 02/18 0955 AC 02/21 PO 0914 Losartan Potassium 100 MG 2100 02/18 2100 AC 02/20 PO 2145 Melatonin 5 MG AT BEDTIME 02/18 2100 AC 02/20 PO 2145 Methylprednisolone 40 MG Q12 02/19 2100 AC 02/21 IV 0919 Metoprolol Tartrate 25 MG BID 02/17 2100 AC 02/21 PO 0914 Montelukast Sodium 10 MG DAILY 02/17 1416 AC 02/21 PO 0915 Nitroglycerin 0.6 MG DAILY PRN 02/17 1430 AC 02/21 TOP 0650 Nitroglycerin 0.4 MG EVERY 5 MIN PRN 02/17 1430 AC Nystatin 5 ML 4 TIMES/DAY 02/18 1000 AC 02/21 PO 1207 Omeprazole 40 MG DAILY AC 02/17 1417 AC 02/21 PO 0608 Oxycodone/ 1 TAB Q6P PRN 02/17 2100 AC 02/21 Acetaminophen PO 1211 Patient Medication 1 ED ONE ONE 02/20 1630 DC Teaching ED 02/20 1631 Polyethylene Glycol 17 GM DAILY 02/18 0900 AC 02/21 PO 0919 Potassium Chloride 20 MEQ DAILY 02/18 0900 AC 02/21 PO 0914 Pravastatin Sodium 20 MG 1700 02/17 1700 AC 02/20 PO 1719 Roflumilast 500 MCG DAILY 02/17 1430 AC 02/21 PO 0916 Tiotropium Com[place] 1 PUF DAILY 02/17 1416 AC 02/21 INH 0918 Vitamin E 400 IU DAILY 02/17 1416 02/21 PO 0916 Vital Signs & I&O Last 24 Hrs of Vitals and I&O: Vital Signs Date Time Temp Pulse Resp B/P B/P Pulse O2 O2 Flow FiO2 Mean Ox Delivery Rate 02/21 0915 68 160/70 02/21 0914 68 160/70 02/21 0849 96 Nasal 2.0L Cannula 02/22 800 96 Nasal 2.0L Cannula 02/21 600 96.8 68 18 160/70 97 Nasal 2.0L Cannula 02/21 0000 Nasal 2.0L Cannula 02/20 215 97.8 73 19 142/60 98 Nasal 2.0L Cannula 02/20 214 73 142/60 02/20 214 73 142/60 02/20 1610 98 Nasal 2.0L Cannula 02/20 1600 Nasal 2.0L Cannula 02/20 1408 97.8 77 20 128/70 97 Intake & Output 02/21 1600 02/21 0800 02/21 0000 Intake Total 350 Output Total Balance 350 Intake, Oral 350 Patient 122 lb Weight Weight Bed scale Measurement Method Exam Other Physical Findings: gen-awake,alert head/neck-nasal cannula cvs-s1,s2 lungs-b/l rhonchi abd-soft,bs+ ext-no edema Results Last 24 Hrs of Lab Results: Laboratory Tests 02/21/18 0804: CBC w Diff NO MAN DIFF REQ, RBC 3.86 L, MCV 90.2, MCH 29.9, MCHC 33.2, RDW 15.9 H, MPV 6.6 L, Gran % 80.1 H, Lymphocytes % 14.4 L, Monocytes % 5.5, Eosinophils % 0, Basophils % 0, Absolute Granulocytes 9.3 H, Absolute Lymphocytes 1.7, Absolute Monocytes 0.6, Absolute Eosinophils 0, Absolute Basophils 0 Impression/Plan Impression/Plan Impression/Plan: Impression 68 year old woman * exacerbation of COPD secondary to RLL infiltrate with a history of pseudomonas * hemoptysis Plan -prednisone taper 60x3, 50x3, 40x3, 30x3, 20x3, then remain on 10mg, will taper off in office -09/2017 no evidence of any malignancy, given patient's age and risk, will follow imaging on an outpatient basis -trc/barndo -on levaquin - can consider a prolonged course (7-10 days) - will discuss based on clinical course -would repeat cxr on an outpatient basis unless any events occur DVT prophylaxis at all times
[2018-02-21 14:53] VITALS: BP 160/82
== END 2018-02-21 16:15 | disposition home health service (06) | DRG 178 ==
LOC: ERH 09:48 → 2NB 13:08 → ERHI 13:08 → CANRESERV 13:47 → ENRESERV 13:47 → ENTRNSPT 14:22 → EDTRNSPTSTS 14:23 → EDTRNSPT 14:23 → 2NB 14:27 → CMPTRNSPT 14:44 → 2NB 02-18 08:05 → ENPENDDIS 02-21 11:17 → ENTRNSPT 02-21 16:13 → 2NB 02-21 16:15 → EDTRNSPT 02-21 16:15 → EDTRNSPTSTS 02-21 16:15 → CMPTRNSPT 02-21 16:38
PROVIDERS: Physician Assistant Medical; Student in an Organized Health Care Education/Training Program
DX: J15.1 Pneumonia due to Pseudomonas (principal); I50.32 Chronic diastolic (congestive) heart failure; J44.0 Chronic obstructive pulmonary disease with (acute) lower respiratory infection; J44.1 Chronic obstructive pulmonary disease with (acute) exacerbation; E87.1 Hypo-osmolality and hyponatremia; R04.2 Hemoptysis; J96.11 Chronic respiratory failure with hypoxia; I48.2 Chronic atrial fibrillation; Z99.81 Dependence on supplemental oxygen; I11.0 Hypertensive heart disease with heart failure; K21.9 Gastro-esophageal reflux disease without esophagitis; Z95.0 Presence of cardiac pacemaker; F32.9 Major depressive disorder, single episode, unspecified; J20.9 Acute bronchitis, unspecified; E03.9 Hypothyroidism, unspecified; I25.2 Old myocardial infarction; K58.9 Irritable bowel syndrome, unspecified; M79.7 Fibromyalgia; Z90.49 Acquired absence of other specified parts of digestive tract; Z79.52 Long term (current) use of systemic steroids; Z87.01 Personal history of pneumonia (recurrent); Z85.828 Personal history of other malignant neoplasm of skin; Z88.8 Allergy status to other drugs, medicaments and biological substances
CPT/HCPCS: 2NBP; 36415; 36592; 71046; 82436; 87040; 87070; 87449; 87450; 87804; 87804-59; 93005; 93010; 96374; J0456; J0696; J1644; J1650; J2920; J2930; J3490; J7040; J7512; J7608; J7626

== ENCOUNTER 2018-04-16 13:03 | Emergency (ER) | payer OTHER, MEDICARE ==
[~2018-04-16] VITALS: Ht 157.5 cm; Wt 52.2 kg
[~2018-04-16 13:03] MED LIST changes: +CYMBALTA30 M1 PO; +LEVAQUIN250 M1 PO; +LORATADINE10 M1 PO; +NORVASC2.5 M1 PO
[2018-04-16 13:09] VITALS: BP 175/80
[2018-04-16 13:33] LABS: ABSOLUTE BASOPHIL COUNT 0.1 /CUMM (0.0-0.2); ABSOLUTE EOSINOPHIL COUNT 0 /CUMM (0.0-0.7); ABSOLUTE GRANULOCYTE CT 6.7 /CUMM (1.4-6.5); ABSOLUTE LYMPH COUNT 0.9 /CUMM (1.2-3.4); ABSOLUTE MONOCYTE COUNT 0.4 /CUMM (0.10-0.60); BASOPHIL % 1.1 % (0.0-2.0); EOSINOPHIL % 0.5 % (0-5); HEMATOCRIT 38.5 % (37-47); MEAN CORPUSCULAR HGB 30.9 PG (27.0-31.0); MEAN CORPUSCULAR HGB CONC 33.5 G/DL (33.0-37.0); MEAN CORPUSCULAR VOLUME 92.3 FL (81.0-99.0); MEAN PLATELET VOLUME 6.6 FL (7.4-10.4); PLATELET COUNT 391 /CUMM (130-400); RBC DISTRIBUTION WIDTH 15.1 % (11.5-14.5); RED BLOOD CELL CT 4.18 /CUMM (4.20-5.40); WHITE BLOOD CELL COUNT 8.1 /CUMM (4.8-10.8)
--- NOTE | 2018-04-16 15:46 | ED CARDIAC/CP/PALPITATIONS ---
History of Present Illness General Chief Complaint: Chest Pain Stated Complaint: CHEST PAIN,BACK PAIN Source: patient, old records Exam Limitations: no limitations Vital Signs & Intake/Output Vital Signs & Intake/Output Vital Signs Date Time Temp Pulse Resp B/P B/P Pulse O2 O2 Flow FiO2 Mean Ox Delivery Rate 04/16 1656 96 Nasal 2.0L Cannula 04/16 1610 Nasal 2.0L Cannula 04/16 1309 96.7 97 20 175/80 92 Nasal 2.0L Cannula Allergies Coded Allergies: menotropins (HIVES FROM PERGONAL 11/15/15) apixaban (HEMATOMA TO HIP 02/02/17) Reconcile Medications Albuterol Sulfate 2.5 MG/3 ML (0.083 %) VIAL.NEB 1 Vial INH/DANIKA PRN RESPIRATORY (Reported) Alprazolam 0.5 MG TABLET 1 TAB PO BIDP PRN ANXIETY (Reported) Amlodipine (Norvasc) 2.5 MG TABLET 1 TAB PO DAILY BP (Reported) Aspirin (Ecotrin*) 81 MG TABLET.DR 1 TAB PO DAILY HEART HEALTH (Reported) Azithromycin 250 MG TABLET 1 DP PO AD copd 2 the first day followed by 1 for days 2-5 Budesonide (Pulmicort) 0.5 MG/2 ML AMPUL.NEB 1 Vial INH/DANIKA DAILY RESP. ( Reported) Calcium (Elemental-Fr Calcarb) (Calcium) 600 MG CALCIUM (1,500 MG) TABLET 1 TAB PO DAILY SUPPLEMENT (Reported) Cholecalciferol (Vitamin D3) (Vitamin D) 2,000 UNIT CAPSULE 1 CAP PO DAILY SUPPLEMENT (Reported) Dicyclomine HCl 10 MG CAPSULE 1 CAP PO TID ABD SPASM (Reported) Docusate Sodium (Colace) 100 MG CAPSULE 2 CAP PO QPM CONSTIPATION (Reported) Duloxetine Hydrochloride (Cymbalta) 30 MG CAPSULE.DR 1 CAP PO DAILY mental health (Reported) Ezetimibe (Zetia) 10 MG TABLET 1 TAB PO QPM CHOLESTEROL (Reported) Ferrous Sulfate 325 MG (65 MG IRON) TABLET 1 TAB PO TID SUPPLEMENT (Reported) Fluticasone/Salmeterol (Advair 250-50 Diskus) 250 MCG-50 MCG/DOSE BLST.W.DEV 1 PUF INH BID BREATHING PROBLEMS (Reported) Folic Acid 0.8 MG CAPSULE 1 CAP PO DAILY SUPPLEMENT (Reported) Furosemide 40 MG TABLET 1 TAB PO BID DIURETIC (Reported) Guaifenesin (Mucinex) 1,200 MG TAB.ER.12H 1 TAB PO QAM MUCUS (Reported) Guaifenesin (Tussin) 100 MG/5 ML LIQUID 1,200 MG PO DAILY MUCUS (Reported) Lactobacillus Acidophilus (Probiotic) (Unknown Strength) CAPSULE (Unknown Dose ) PO DAILY PROBIOTIC (Reported) Levothyroxine Sodium 100 MCG TABLET 1 TAB PO DAILY AC THYROID (Reported) Loratadine 10 MG TABLET 10 MG PO DAILY Allergies , Losartan (Cozaar) 100 MG TABLET 1 TAB PO DAILY BP (Reported) Metoprolol Tartrate 25 MG TABLET 25 MG PO BID Atrial fibrilation Montelukast Sodium 10 MG TABLET 1 TAB PO DAILY COPD (Reported) Nitroglycerin (Nitro-Dur) 0.6 MG/HOUR PATCH.TD24 1 PATCH TOP DAILY HEART ( Reported) Nitroglycerin (Nitrostat) 0.4 MG TAB.SUBL 1 TAB SL AD PRN CHEST PAIN ( Reported) 1st sign of attack; may repeat every 5 minutes until relief; if pain persists after 3 tablets in 15 minutes, prompt medical att Nystatin 100,000 UNIT/ML ORAL.SUSP 5 ML PO 4 TIMES/DAY ORAL THRUSH ,. Ingomar-3 Fatty Acids/Fish Oil (Fish Oil 1,200 MG Softgel) 360 MG-1,200 MG CAPSULE.DR 1 CAP PO DAILY SUPPLEMENT (Reported) Omeprazole 40 MG CAPSULE.DR 1 CAP PO DAILY GI (Reported) Polyethylene Glycol 3350 (Miralax) 17 GRAM/DOSE POWDER 17 GM PO DAILY constipation mix with water, juice, soda, coffee or tea Potassium Chloride (Klor-Con M20) 20 MEQ TAB.ER.PRT 2 TAB PO DAILY VITAMIN ( Reported) Pravastatin Sodium (Pravachol) 40 MG TABLET 1 TAB PO QHS CHOLESTEROL ( Reported) Prednisone (Deltasone) 20 MG TABLET 2 TAB PO DAILY copd Roflumilast (Daliresp) 500 MCG TABLET 1 TAB PO DAILY COPD (Reported) . Tiotropium [place] (Spiriva) 18 MCG CAP.W.DEV 1 CAP INH DAILY copd Reason to Stop at ADM:TRC NEBS ORDERS Vitamin E (Dl,Tocopheryl Acet) (Vitamin E) 400 UNIT CAPSULE 1 TAB PO DAILY SUPPLEMENT (Reported) Triage Note: PT TO ED C/O SUDDEN ONSET OF CHEST PAIN LAST NIGHT. HAS BEEN TAKING SL NITRO WITH NO RELIEF. ALSO C/O BACK PAIN. TODAY PT TOOK HER SCHEDULED TYLENOL WITH CODEINE AND THE PAIN WENT AWAY. PT IS O2 DEPENDANT AT 2LNC. Triage Nurses Notes Reviewed? yes Onset: Gradual Duration: day(s): Timing: recent history Location: left chest and back HPI: 68-year-old female with history of coronary artery disease, COPD on 2 L home oxygen, A. dorina presents emergency department complaining of left-sided chest pain beginning last night. Patient describes chest pain as pleuritic associated with left-sided back pain. Tried sublingual nitroglycerin without relief of her chest pain. Patient states that this morning her chest pain resolved however she presented for further evaluation of her heart and possible pneumonia. Patient states she has been coughing up yellow/white mucus and reports slightly increasing dyspnea with exertion. Patient states she has had chest pain related to pneumonia in the past. Patient denies abdominal pain, presyncope, hemoptysis , leg swelling. (Keyonna EVERETT,[place] Zarate) Past History Travel History Traveled to [place] past 21 day No Medical History Any Pertinent Medical History? 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: miscarriage, HPV (PER PT) Other Medical Hx: discoid lupus eczema History of MRSA: No History of VRE: No History of CDIFF: No Tetanus Vaccine: 02/07/16 Surgical History Surgical History: appendectomy, hernia repair-hiatal tonsillectomy Psychosocial History Who do you live with Patient/Self Services at Home Home Health Aide, Nursing, Oxygen What is your primary language Urdu Tobacco Use: Quit >30 days ago ETOH Use: denies use Illicit Drug Use: denies illicit drug use Family History Family History, If Any: MOTHER FH: CAD (coronary artery disease) FH: COPD (chronic obstructive pulmonary disease) FH: heart disease FATHER Alzheimer's disease BROTHER FH: CAD (coronary artery disease) BROTHER FH: CAD (coronary artery disease) BROTHER FH: CAD (coronary artery disease) Hx Contributory? No (Georgia Hester) Review of Systems Review of Systems Constitutional: Reports: no symptoms. EENTM: Reports: no symptoms. Respiratory: Reports: see HPI. Cardiovascular: Reports: see HPI. GI: Reports: no symptoms. Genitourinary: Reports: no symptoms. Musculoskeletal: Reports: no symptoms. Skin: Reports: no symptoms. Neurological/Psychological: Reports: no symptoms. Hematologic/Endocrine: Reports: no symptoms. Immunologic/Allergic: Reports: no symptoms. All Other Systems: Reviewed and Negative (Georgia Hester) Physical Exam Physical Exam General Appearance: well developed/nourished, no apparent distress, alert, awake Head: atraumatic, normal appearance Eyes: Bilateral: normal appearance. Ears, Nose, Throat: hearing grossly normal Neck: normal inspection, supple, full range of motion Respiratory: no respiratory distress, bilateral wheezes Cardiovascular: regular rate/rhythm Peripheral Pulses: 2+ radial (R), 2+ radial (L) Gastrointestinal: normal bowel sounds, soft, non-tender, no organomegaly Extremities: normal inspection, normal range of motion Neurologic/Psych: awake, alert, oriented x 3 Skin: intact, normal color, warm/dry Core Measures ACS in differential dx? Yes CVA/TIA Diagnosis No Sepsis Present: No Sepsis Focused Exam Completed? No (Georgia Hester) Progress Differential Diagnosis: AMI, CHF/pulm edema, costochondritis, musculoskeletal pain, myocarditis, pericarditis, pneumonia, pulmonary embolism, unstable angina, COPD exacerbation Diagnostic Imaging: Viewed by Me: Radiology Read. Discussed w/RAD: Radiology Read. CXR Impression: PATIENT: STEPH LEOS PRESENT AGE: 68 PATIENT ACCOUNT NO: [id number] : 50 LOCATION: [facility] ORDERING PHYSICIAN: Georgia EVERETT SERVICE DATE: 04/16/18 EXAM TYPE: RAD - XRY-CHEST XRAY, TWO VIEWS EXAMINATION: XR CHEST CLINICAL INFORMATION: Chest pain, cough, shortness of breath COMPARISON: 04/01/2018 TECHNIQUE: 2 views of the chest were obtained. FINDINGS: No focal consolidation, pleural effusion or pneumothorax. Minimal linear markings at the costophrenic angles consistent with discoid atelectasis. There is lung hyperinflation with flattening of the diaphragms. Heart size is normal. Left chest pacer with stable lead positioning. Cardiac device unchanged. Degenerative changes of the spine. Vascular calcifications. IMPRESSION: No acute pulmonary process. COPD. DICTATED BY: Rea Gregg MD DATE/ TIME DICTATED:04/16/181699 DRUM STENCILER:PAPO DATE/TIME TRANSCRIBED: 04/16/181699 CONFIDENTIAL, DO NOT COPY WITHOUT APPROPRIATE AUTHORIZATION. < Electronically signed in Other Vendor System> SIGNED BY: Rea Gregg MD 1705 Initial ED EKG: afib/flutter with paced rhythm @92bpm, RBBR, LPFB, nonspecific ST changes Repeat EKG: unchanged (Keyonna EVERETT,[place] Zarate) Plan of Care: Orders Procedure Date/time Status Heart Healthy Diet 04/16 D Active TROPONIN LEVEL 04/16 1632 Complete EKG 04/16 1632 Active TROPONIN LEVEL 04/16 1314 Complete MAGNESIUM 04/16 1314 Complete COMPREHENSIVE METABOLIC PANEL 04/16 1314 Complete CHOLESTEROL 04/16 1314 Complete CBC WITHOUT DIFFERENTIAL 04/16 1314 Complete EKG 04/16 1304 Active Laboratory Tests 04/16/18 1724: Troponin I 0.02 04/16/18 1326: Anion Gap 12, Estimated GFR > 60, BUN/Creatinine Ratio 17.1, Glucose 139 H, Calcium 9.7, Magnesium 1.8, Total Bilirubin 0.4, AST 46 H, ALT 42, Alkaline Phosphatase 74, Troponin I 0.02, Total Protein 6.6, Albumin 4.1, Globulin 2.5, Albumin/Globulin Ratio 1.6, Cholesterol 167, CBC w Diff NO MAN DIFF REQ, RBC 4.18 L, MCV 92.3, MCH 30.9, MCHC 33.5, RDW 15.1 H, MPV 6.6 L, Gran % 82.0 H, Lymphocytes % 11.4 L, Monocytes % 5.0, Eosinophils % 0.5, Basophils % 1.1, Absolute Granulocytes 6.7 H, Absolute Lymphocytes 0.9 L, Absolute Monocytes 0.4, Absolute Eosinophils 0, Absolute Basophils 0.1 Patient's EKG is stable, labs are nonactionable, troponin enzymes negative. Chest x-ray shows no evidence of pneumonia. Based on this patient's significant medical history will obtain repeat EKG and troponin for further evaluation. Patient currently has no chest pain. Repeat EKG unchanged, repeat troponin enzyme is negative. The patient has atypical chest pain which is pleuritic, associated with wheezing bilaterally. His baseline COPD. Symptoms are most consistent with COPD exacerbation over pathology. Patient will benefit from steroids and antibiotics. The patient feels comfortable going home, she agrees with the plan of care. The patient was seen and evaluated by Dr. Dean who agrees with the plan of care. Vital signs are stable, there is no acute distress. Dr. Naranjo saw this patient while he was here in the emergency department. (Keyonna EVERETT,[place] Zarate) (Jermaine SOMMER,[place]) Departure Departure Disposition: HOME OR SELF CARE Condition: Stable Clinical Impression Primary Impression: COPD exacerbation Secondary Impressions: Chest pain Referrals: Rodas Gerard ETIENNE (PCP/Family) Additional Instructions: Begin steroids and antibiotics as prescribed. Follow up with Dr. Whitney. Return with worsening symptoms or concerns. Please note that there might be incidental findings in your evaluation that are unrelated to the current emergency department visit. Please notify your primary care doctor about this emergency department visit in order to obtain and review all of the testing performed so that these incidental findings can be monitored as needed. If you had an x-ray performed, please understand that some fractures may not be seen on the initial set of x-rays. If your symptoms persist you might need a repeat set of x-rays to check for such a fracture. If you had a laceration evaluated, please understand that foreign bodies such as glass or wood may not be visible to the naked eye or on plain x-rays. If the wound becomes red, swollen, increasingly more painful or if there is any drainage from the wound, please have it reevaluated by a physician for the possibility of a retained foreign body. If you're unable to follow up as outlined in the discharge instructions please return to the emergency department. Thank you for choosing the [facility] Emergency Department for your care. It was a pleasure to serve you today. Departure Forms: Customer Survey General Discharge Information Prescriptions: Current Visit Scripts Azithromycin 1 DP PO AD #6 TAB 2 the first day followed by 1 for days 2-5 Prednisone (Deltasone) 2 TAB PO DAILY #10 TAB ([place] Hester) PA/PYROMETER MECHANIC Co-Sign Statement Statement: ED Attending supervision documentation- [x] I saw and evaluated the patient. I have also reviewed all the pertinent lab results and diagnostic results. I agree with the findings and the plan of care as documented in the PA's/PYROMETER MECHANIC's documentation. [] I have reviewed the ED Record and agree with the PA's/PYROMETER MECHANIC's documentation. [] Additions or exceptions (if any) to the PAs/PYROMETER MECHANIC's note and plan are summarized below: [] (Benji Dean DO) Critical Care Note Critical Care Note Critical Care Time: non-applicable (Keyonna EVERETT,[place] Zarate)
--- NOTE | 2018-04-16 17:06 | RADIOLOGY REPORT ---
EXAMINATION: XR CHEST CLINICAL INFORMATION: Chest pain, cough, shortness of breath COMPARISON: 04/01/2018 TECHNIQUE: 2 views of the chest were obtained. FINDINGS: No focal consolidation, pleural effusion or pneumothorax. Minimal linear markings at the costophrenic angles consistent with discoid atelectasis. There is lung hyperinflation with flattening of the diaphragms. Heart size is normal. Left chest pacer with stable lead positioning. Cardiac device unchanged. Degenerative changes of the spine. Vascular calcifications. IMPRESSION: No acute pulmonary process. COPD.
[2018-04-16] MEDS ORDERED: DELTASONE20 MG PO (18:44)
[2018-04-16] MEDS ORDERED: AZITHROMYCIN250 M1 PO (18:44)
[2018-04-16] MEDS ORDERED: PROBIOTIC1 EACH PO (18:51)
[2018-04-16] MEDS ORDERED: VITAMIN D2000 UNIT PO (18:52)
[2018-04-16] MEDS ORDERED: FOLIC ACID0.8 M1 PO (18:53)
[2018-04-16] MEDS ORDERED: PULMICORT0.5 MG/21 INH/SOL (18:54)
[2018-04-16] MEDS ORDERED: MUCINEX1200 M1 PO (18:58)
[2018-04-16] MEDS ORDERED: TUSSIN100 MG/51 PO (18:58)
[2018-04-16] MEDS ORDERED: CALCIUM600 M3 PO (19:00)
--- NOTE | 2018-04-17 05:53 | Cons- Cardiology ---
General Information and HPI Consulting Request Date of Consult: 04/16/18 Requested By: er History of Present Illness: Cynthia is a 68 year old female with history of hypertension, dyslipidemia, tobacco abuse, and coronary artery disease, status post inferior wall myocardial infarction which she experienced in 1995. This patient also has severe emphysematous COPD. Finally, this patient has atrial fibrillation. Cynthia presented to [facility] with shortness of breath that was only slightly beyond baseline with a productive cough and a mild left sided chest discomfort with a pleuritic component. The discomfort was note exacerbated by physical activity and was persistent over several hours to a day before resolving. There was no associated nausea, vomiting or diaphoresis. It should be noted that this patient received a Watchman atrial occluder device placed about three month ago. This device was necessary to allow the patient to be off anticoagulation without the risk of stroke. The device was needed due to about 5 episodes of prior bleeding including GI bleeds, hemoptysis and psoas muscle bleed. It should also be noted that this patient has had multiple recent admissions for shortness of breath and pneumonia. In consideration of Cynthia's diagnosis of atrial fibrillation rate control with chronic anticoagulation was initially tried. Due to multiple issues with bleeding we subsequently cardioverted this patient and placed her on Tikosyn to maintain a sinus rhythm and avoid the need for anticoagulation. It should be noted that this patient also tends to feel much improved when in a sinus rhythm. During a recent hospital we needed to discontinue Tykosyn due to its ineffectiveness in maintaining a sinus rhythm, its proarrhythmia with episodes of NSVT on the medication and its incompatability with Cipro that was needed for treatment of the patient's infection. Cynthia has a 90% ostial PDA on her recent cardiac catheterization. This is a small vessel that is not amenable to PCI. Her other coronaries are patent. Finally, this patient went from [facility] where the above was done to the [place] rehab where she developed a spontaneous right psoas bleed that occured off anticoagulation. She has also had issues with GI bleeding. It should be noted that this patient underwent a recent cardiac catheterization which showed patent coronaries with a normal EF. At [facility], during an exacerbation of her COPD she did demonstrate mild decompensated CHF and a small rise in cardiac enzymes consistent with NSTEMI. Her episodes of respiratory distress are frequent. It may be recalled that on a prior but recent hospital visit she was found unresponsive with hypertcapneic respiratory failure. Cynthia did have a recent stress test that showed a small fixed inferior defect without ischemia that is not unexpected in the setting of her known 90% occluded PDA. Her EF was normal at 72%. At baseline, Cynthia does have shortness of breath which has been attributed to her COPD. This patient has also had some previous bradycardia which has improved to some degree after stopping metoprolol. In absolute terms, this patient will become winded going up 12 steps or if she goes up a hill. In the past, the patient also reported some mild exertional chest pressure that occurs approximately 2 times a month. The patient's cardiac cath showed a short normal left main. The LAD was a large vessel that wrapped around the apex and supplied scant [id number] transseptal collaterals. The left circumflex was a large vessel with luminal irregularities. The right coronary artery was dominant with a 50% proximal stenosis and a 90% ostial stenosis of the PDA. The RV marginal branch initially had an 80% to 90% stenosis which was reduced post angioplasty to a 70% non flow- limiting stenosis. The RV marginal branch was a large vessel that did appear to go to the inferior wall. The PDA on the other hand was a small vessel, although dominant in distribution. It should be noted that a previous cardiac catheterization was performed in [address] Tripathi, who also saw evidence of an occluded PDA. Allergies/Medications Allergies: Coded Allergies: menotropins (HIVES FROM PERGONAL 11/15/15) apixaban (HEMATOMA TO HIP 02/02/17) Home Med List: Albuterol Sulfate 2.5 MG/3 ML (0.083 %) VIAL.NEB 1 Vial INH/DANIKA PRN RESPIRATORY (Reported) Alprazolam 0.5 MG TABLET 1 TAB PO BIDP PRN ANXIETY (Reported) Amlodipine (Norvasc) 2.5 MG TABLET 1 TAB PO DAILY BP (Reported) Aspirin (Ecotrin*) 81 MG TABLET.DR 1 TAB PO DAILY HEART HEALTH (Reported) Azithromycin 250 MG TABLET 1 DP PO AD copd 2 the first day followed by 1 for days 2-5 Budesonide (Pulmicort) 0.5 MG/2 ML AMPUL.NEB 1 Vial INH/DANIKA DAILY RESP. ( Reported) Calcium (Elemental-Fr Calcarb) (Calcium) 600 MG CALCIUM (1,500 MG) TABLET 1 TAB PO DAILY SUPPLEMENT (Reported) Cholecalciferol (Vitamin D3) (Vitamin D) 2,000 UNIT CAPSULE 1 CAP PO DAILY SUPPLEMENT (Reported) Dicyclomine HCl 10 MG CAPSULE 1 CAP PO TID ABD SPASM (Reported) Docusate Sodium (Colace) 100 MG CAPSULE 2 CAP PO QPM CONSTIPATION (Reported) Duloxetine Hydrochloride (Cymbalta) 30 MG CAPSULE.DR 1 CAP PO DAILY mental health (Reported) Ezetimibe (Zetia) 10 MG TABLET 1 TAB PO QPM CHOLESTEROL (Reported) Ferrous Sulfate 325 MG (65 MG IRON) TABLET 1 TAB PO TID SUPPLEMENT (Reported) Fluticasone/Salmeterol (Advair 250-50 Diskus) 250 MCG-50 MCG/DOSE BLST.W.DEV 1 PUF INH BID BREATHING PROBLEMS (Reported) Folic Acid 0.8 MG CAPSULE 1 CAP PO DAILY SUPPLEMENT (Reported) Furosemide 40 MG TABLET 1 TAB PO BID DIURETIC (Reported) Guaifenesin (Mucinex) 1,200 MG TAB.ER.12H 1 TAB PO QAM MUCUS (Reported) Guaifenesin (Tussin) 100 MG/5 ML LIQUID 1,200 MG PO DAILY MUCUS (Reported) Lactobacillus Acidophilus (Probiotic) (Unknown Strength) CAPSULE (Unknown Dose ) PO DAILY PROBIOTIC (Reported) Levothyroxine Sodium 100 MCG TABLET 1 TAB PO DAILY AC THYROID (Reported) Loratadine 10 MG TABLET 10 MG PO DAILY Allergies , Losartan (Cozaar) 100 MG TABLET 1 TAB PO DAILY BP (Reported) Metoprolol Tartrate 25 MG TABLET 25 MG PO BID Atrial fibrilation Montelukast Sodium 10 MG TABLET 1 TAB PO DAILY COPD (Reported) Nitroglycerin (Nitro-Dur) 0.6 MG/HOUR PATCH.TD24 1 PATCH TOP DAILY HEART ( Reported) Nitroglycerin (Nitrostat) 0.4 MG TAB.SUBL 1 TAB SL AD PRN CHEST PAIN ( Reported) 1st sign of attack; may repeat every 5 minutes until relief; if pain persists after 3 tablets in 15 minutes, prompt medical att Nystatin 100,000 UNIT/ML ORAL.SUSP 5 ML PO 4 TIMES/DAY ORAL THRUSH ,. [place]-3 Fatty Acids/Fish Oil (Fish Oil 1,200 MG Softgel) 360 MG-1,200 MG CAPSULE.DR 1 CAP PO DAILY SUPPLEMENT (Reported) Omeprazole 40 MG CAPSULE.DR 1 CAP PO DAILY GI (Reported) Polyethylene Glycol 3350 (Miralax) 17 GRAM/DOSE POWDER 17 GM PO DAILY constipation mix with water, juice, soda, coffee or tea Potassium Chloride (Klor-Con M20) 20 MEQ TAB.ER.PRT 2 TAB PO DAILY VITAMIN ( Reported) Pravastatin Sodium (Pravachol) 40 MG TABLET 1 TAB PO QHS CHOLESTEROL ( Reported) Prednisone (Deltasone) 20 MG TABLET 2 TAB PO DAILY copd Roflumilast (Daliresp) 500 MCG TABLET 1 TAB PO DAILY COPD (Reported) . Tiotropium [place] (Spiriva) 18 MCG CAP.W.DEV 1 CAP INH DAILY copd Reason to Stop at ADM:TRC NEBS ORDERS Vitamin E (Dl,Tocopheryl Acet) (Vitamin E) 400 UNIT CAPSULE 1 TAB PO DAILY SUPPLEMENT (Reported) Review of Systems Review of Systems: A twelve point review of systems is unremarkable. 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 child Services at Home: Home Health Aide, Nursing, Oxygen Primary Language: Monegasque ETOH Use: denies use Illicit Drug Use: denies illicit drug use Functional Ability ADLs Independent: dressing, eating, toileting, bathing. Ambulation: independent IADLs Independent: shopping, housework, finances, food prep, telephone, transportation , medication admin. Exam & Diagnostic Data Vital Signs and I&O Vital Signs Date Time Temp Pulse Resp B/P B/P Pulse O2 O2 Flow FiO2 Mean Ox Delivery Rate 04/16 1656 96 Nasal 2.0L Cannula 04/16 1610 Nasal 2.0L Cannula 04/16 1309 96.7 97 20 175/80 92 Nasal 2.0L Cannula Intake & Output 04/17 0804/17 0000 04/16 1600 04/16 0800 04/16 0000 04/15 1600 Intake Total 0 Output Total Balance 0 Intake, Oral 0 Patient 115 lb Weight Weight [id number] Measurement Method Physical Exam: General: WD/WN female in NAD; alert and oriented x 3 HEENT: NC/AT, PERRL, EOMI Neck: no JVD, no carotid bruit Heart: RRR w/o murmur Lungs: decreased air movement, no crackles Abdomen: soft, NT, +ve bowel sounds Extremities: no edema Assessment/Plan Assessment/Plan * This patient has very atypical and non-exertional chest pain that is not associated with any electrocardiographic changes or rise in cardiac enzymes despite its prolonged course. I suspect it is a musculoskeletal discomfort related to her coughing. If she has two sets of negative troponins and a clear chest X-ray I feel that she can be saftely discharged to home with follow up in the office. No change in medications is recommended at this time. Consult Acknowledgment - Thank you for your consult request.
== END 2018-04-16 18:58 ==
LOC: ERH 13:03
PROVIDERS: Student in an Organized Health Care Education/Training Program
DX: J44.1 Chronic obstructive pulmonary disease with (acute) exacerbation (principal); R07.9 Chest pain, unspecified; Z87.891 Personal history of nicotine dependence; M54.9 Dorsalgia, unspecified
CPT/HCPCS: 1263; 71046; 93005; 93010